=== PATIENT | female | born 1960 | race Caucasian/White ===

== ENCOUNTER 2024-04-04 12:39 | Inpatient (IN) | payer OTHER, MEDICAID ==
[~2024-04-04] VITALS: Ht 165.1 cm; Wt 104.5 kg
[2024-04-04] MEDS ORDERED: AZITHROMYCIN 250 MG TAB PO ONE (12:45)
--- NOTE | 2024-04-04 12:53 | ED.PDOC ---
SOB-HPI HPI Comments 63y F who presents to the ED via EMS for chief complaint of shortness of breath. Per EMS, pt lives with family and states pt has been short of breath for the past 3 days getting progressively worse. Pt family states pt deteriorated today and states they called EMS to the scene. Per EMS arrival, pt was noted to be in respiratory distress and after checking vitals, pt had 02 sat of 80% on room air. Pt family states pt has history of COPD and states pt took her inhaler and tried 2 breathing treatments and pt was still short of breath prior to ED arrival. EMS gave pt additional breathing treatment and placed pt on 02 mask and brought pt to the ED for further evaluation. Pt in the ED, placed on 02 mask 15 L via NRB. Pt in the ED, noted to be in respiratory distress and short of breath when attempting to answer questions. Chief Complaint: Shortness of Breath Time Seen by MD: 12:49 Reviewed notes: Paving Supervisor Notes, Medications Information Source: Patient, Emergency Med Personnel Mode of Arrival: EMS Brought in by: EMS Past Medical History PAST MEDICAL HISTORY: CAD, COPD, DM, HTN Surgical History (Other): 4x cardiac stents placed [employer]BER History: Unknown Family History Family History: Unknown Social History Smoker: Non-Smoker Alcohol: Denies ETOH Use Drugs: Denies Drug Use Lives In: Home Physical Exam General Appearance: Moderate Distress, Severe Distress, Other HEENT: Normal ENT Inspection, Pharynx Normal, TMs Normal Neck: Full Range of Motion, Non-Tender, Normal, Normal Inspection Respiratory: Respiratory Distress, Wheezing (bilateral wheezing), Other (pt noted to be tachycardic and tachypneic) Cardiovascular: Tachycardia Breast Exam: Deferred Gastrointestinal: No Organomegaly, Non Tender, No Pulsatile Mass, Normal Bowel Sounds, Soft Genitalia: Deferred Pelvic: Deferred Rectal: Deferred Extremities: No calf tenderness, Normal capillary refill, Normal inspection, Normal range of motion, Non-tender, No pedal edema Musculoskeletal : Apperance: Normal Neurologic: Alert, supervisor shed workers II-XII nml as Tested, No Motor Deficits, Normal Affect, Normal Mood, No Sensory Deficits Cerebellar Function: Normal Reflexes: Normal Skin: Dry, Normal Color, Warm Lymphatic: No Adenopathy Was a procedure done? Was a procedure done?: No Differential Dx Differential Diagnosis: CHF, COPD, Myocardial infarction, Pneumonia, Pulmonary Embolism, Respiratory Distress Comments acute respiratory failure, X-Ray, Labs, Meds, VS Vital Signs Date Time Temp Pulse Resp B/P (MAP) Pulse Ox O2 Delivery O2 Flow Rate FiO2 04/04/24 15:42 130/57 04/04/24 15:17 78 04/04/24 13:06 99 171/68 Facial BiPAP Mask 100 04/04/24 12:39 40 80 Non-Rebreather 15 N/A 04/04/24 12:39 98.7 107 40 90/58 (69) 80 Lab Test 04/04/24 14:17 04/04/24 14:15 04/04/24 13:24 Range/Units Influenza Type A Antigen Negative Negative Influenza Type B Antigen Negative Negative SARS-CoV-2 Antigen (Rapid) Negative NEGATIVE Troponin I High Sensitivity 36 *H 26 </=34 ng/L White Blood Count 9.1 4.4-10.8 10^3/uL Red Blood Count 3.98 L 4.0-5.20 10^6/uL Hemoglobin 12.5 12.2-16.2 g/dL Hematocrit 38.9 36.0-46.0 % Mean Corpuscular Volume 97.8 80.0-100.0 fL Mean Corpuscular Hemoglobin 31.5 28.0-32.0 pg Mean Corpuscular Hemoglobin Concent 32.2 32.0-36.0 g/dL Red Cell Distribution Width 15.4 H 11.8-14.3 % Platelet Count 160 140-450 10^3/uL Mean Platelet Volume 9.7 6.9-10.8 fL Neutrophils (%) (Auto) 78.5 37.0-80.0 % Lymphocytes (%) (Auto) 16.2 10.0-50.0 % Monocytes (%) (Auto) 3.6 0.0-12.0 % Eosinophils (%) (Auto) 1.0 0.0-7.0 % Basophils (%) (Auto) 0.7 0.0-2.0 % Neutrophils # (Auto) 7.1 1.6-8.6 10 ^3/uL Lymphocytes # (Auto) 1.5 0.4-5.4 10 ^3/uL Monocytes # (Auto) 0.3 0-1.3 10 ^3/uL Eosinophils # (Auto) 0.1 0-0.8 10 ^3/uL Basophils # (Auto) 0.1 0-0.2 10 ^3/uL Nucleated Red Blood Cells 0.0 % Sodium Level 143 136-145 mmol/L Potassium Level 4.2 3.5-5.1 mmol/L Chloride Level 109 H 98-107 mmol/L Carbon Dioxide Level 26 20-31 mmol/L Anion Gap 8 5-15 Blood Urea Nitrogen 18 9-23 mg/dL Creatinine 0.92 0.550-1.02 mg/dL Glomerular Filtration Rate Calc 69 >90 mL/min BUN/Creatinine Ratio 19.6 10.0-20.0 Serum Glucose 162 H 74-106 mg/dL Lactic Acid Level 1.3 0.4-2.0 mmol/L Calcium Level 9.4 8.7-10.4 mg/dL B-Type Natriuretic Peptide 639.11 0-100 pg/mL Current Medications Medications (Trade) Dose Ordered Sig/Jeanne Route Start Time Stop Time Status Last Admin Albuterol (Ventolin Medneb) 5 mg ONCE ONCE NEB 04/04/24 12:45 04/04/24 12:46 DC 04/04/24 13:05 Ipratropium [place] (Atrovent Medneb) 0.5 mg ONCE ONCE NEB 04/04/24 12:45 04/04/24 12:46 DC 04/04/24 13:06 Azithromycin 250 ml @ 125 mls/hr ONCE ONCE IV 04/04/24 13:30 04/04/24 15:29 DC 04/04/24 13:38 Furosemide (Lasix Injection) 40 mg ONCE ONCE IV 04/04/24 14:15 04/04/24 14:16 DC 04/04/24 15:42 [place] [id number] Ph: [phone] DIAGNOSTIC IMAGING Diagnostic Imaging Report : [id number] Signed PATIENT: KESHIA CASTILLO ACCT: [id number] UNIT: [id number] : 1960 LOC: ER ROOM / BED: / AGE / SEX: 63 / F ADM STATUS: REG ER SERVICE 1254 ORDERING PHYSICIAN: DOMINGO OROZCO MD PROCEDURE(s): CXRP - CHEST PORTABLE REASON: SOB ORDER NUMBER(s): [id number], ACCESSION NUMBER(s): [id number] EXAM: XY CHEST PORTABLE Indication: SOB Technique: Single frontal view of the chest was obtained Comparison: None FINDINGS: Lines and Tubes: None Lungs: Diffuse interstitial opacities. Pleura: Trace left pleural effusion. No pneumothorax. Cardiomediastinal contours: Cardiomegaly. Atherosclerotic vascular calcifications of the thoracic aorta are noted. Bones: No acute osseous abnormality. IMPRESSION: Cardiomegaly with pulmonary edema and trace left pleural effusion. ATED BY: BI KITCHEN MD DICTATED DATE/TIME: 04/04/241315 SIGNED BY: BI KITCHEN MD SIGNED DATE/TIME: 04/04/241315 CC: Time of 1ST Reevaluation: 13:20 Reevaluation 1ST: Unchanged Patient Education/Counseling: Diagnosis, Treatment Family Education/Counseling: No Family Present Departure 1 Departure Time of Disposition: 16:23 (Patient presented with acute shortness of breath concerning for acute on chronic COPD Exacerbation, Pneumonia, ACS, CHF, Pneumothorax. Less likely PE, Dissection. Data: 1. I ordered and reviewed the result of at least 3 labs including a CBC, BMP, and Troponin. 2. I independently interpreted the following tests: Chest X-ray shows .Risk:This patient has a high risk of morbidity due to further diagnostic testing or treatment and may suffer from respiratory or cardiac etiology . Workup reveals a likely COPD Exacerbation and patient should be admitted for further workup. and possible expert consultation.) Impression: Primary Impression: Acute exacerbation of chronic obstructive pulmonary disease (COPD) Additional Impression: Acute hypoxic respiratory failure Disposition: 09 ADMITTED INPATIENT Admit to: [facility] Condition: Guarded Critical Care Note Critical Care Time?: Yes Critical care comment: Acute respiratory failure Authorized and Performed by: Domingo Orozco MD Total critical care time: Approximately 42 minutes Due to a high probability of clinically significant, life threatening deterioration, the patient required my highest level of preparedness to intervene emergently and I personally spent this critical care time directly and personally managing the patient. This critical care time included obtaining a history; examining the patient; pulse oximetry; ordering and review of studies; arranging urgent treatment with development of a management plan; evaluation of patient's response to treatment; frequent reassessment; and, discussions with other providers. This critical care time was performed to assess and manage the high probability of imminent, life-threatening deterioration that could result in multi-organ failure. It was exclusive of separately billable procedures and treating other patients and teaching time. Please see my other sections and the rest of the note for further information on patient assessment and treatment. Stability Stability form required: No Heart Score Heart Score: Heart Score Response (Comments) Value History Moderate Suspicious 1 EKG Repolarization Disturb 1 Age >65 2 Risk Factors >3 or Hx ASHD 2 Troponin 1-2 x's Normal limit 1 Total 7 I personally scribed for DOMINGO OROZCO MD (RADHA) on 04/04/24 at 12:53. Electronically submitted by Lalitha Sparrow ([email or web address]). I personally scribed for DOMINGO OROZCO MD (RADHA) on 04/04/24 at 12:55. Electronically submitted by Lalitha Sparrow ([employer]). I personally scribed for ODMINGO OROZCO MD (RADHA) on 04/04/24 at 14:18. Electronically submitted by Lalitha Sparrow ([employer]). DOMINGO OROZCO MD Apr 04, 2024 12:53
[2024-04-04] MEDS: ALBUTEROL SULF 2.5 MG/0.5ML(0.5%) NEB SOLN NEB ONE (13:05)
[2024-04-04] MEDS: IPRATROPIUM BROM 0.5 MG/2.5ML INH SOL NEB ONE (13:06)
--- NOTE | 2024-04-04 13:17 | DVH ---
EXAM: XY CHEST PORTABLE Indication: SOB Technique: Single frontal view of the chest was obtained Comparison: None FINDINGS: Lines and Tubes: None Lungs: Diffuse interstitial opacities. Pleura: Trace left pleural effusion. No pneumothorax. Cardiomediastinal contours: Cardiomegaly. Atherosclerotic vascular calcifications of the thoracic aor ta are noted. Bones: No acute osseous abnormality. IMPRESSION: Cardiomegaly with pulmonary edema and trace left pleural effusion.
[2024-04-04] MEDS: KETAMINE 50mg/ML 10ml Vial 10 ML ONE (13:18)
[2024-04-04] MEDS: AZITHROMYCIN 500MG/ 250ML 250 ML IV ONE (13:38)
[2024-04-04 13:46] LABS: Basophils # (auto) 0.1 10 ^3/uL (0-0.2); Basophils % (auto) 0.7 % (0.0-2.0); Eosinophils # (auto) 0.1 10 ^3/uL (0-0.8); Hematocrit 38.9 % (36.0-46.0); Hemoglobin 12.5 g/dL (12.2-16.2); Lymphocytes # (auto) 1.5 10 ^3/uL (0.4-5.4); Lymphocytes % (auto) 16.2 % (10.0-50.0); Mean Corpuscular Hemoglobin 31.5 pg (28.0-32.0); Mean Corpuscular Hgb Conc. 32.2 g/dL (32.0-36.0); Mean Corpuscular Volume 97.8 fL (80.0-100.0); Monocytes # (auto) 0.3 10 ^3/uL (0-1.3); Monocytes % (auto) 3.6 % (0.0-12.0); Neutrophils # (auto) 7.1 10 ^3/uL (1.6-8.6); Neutrophils % (auto) 78.5 % (37.0-80.0); Platelet Count (auto) 160 10^3/uL (140-450); Red Blood Cells 3.98 10^6/uL (4.0-5.20); Red Cell Distribution Width 15.4 % (11.8-14.3); White Blood Cell 9.1 10^3/uL (4.4-10.8)
[2024-04-04 13:59] LABS: Chloride 109 mmol/L (98-107); Potassium 4.2 mmol/L (3.5-5.1); Sodium 143 mmol/L (136-145)
[2024-04-04 14:00] LABS: Anion Gap 8 (5-15); Calcium 9.4 mg/dL (8.7-10.4); Carbon Dioxide 26 mmol/L (20-31)
[2024-04-04 14:05] LABS: BUN/Creatinine Ratio 19.6 (10.0-20.0); Blood Urea Nitrogen 18 mg/dL (9-23); Glucose 162 mg/dL (74-106)
[2024-04-04] MEDS: FUROSEMIDE 40 MG/4 ML VIAL IV ONE (15:42)
[2024-04-04 16:13] LABS: COVID19 ANTIGEN SOFIA FIA NEGATIVE (NEGATIVE); Rapid Influenza A Negative (Negative); Rapid Influenza B Negative (Negative)
[2024-04-04] MEDS ORDERED: DEXTROSE (50%) 50ML SYRG IV PRN (17:15)
[2024-04-04] MEDS ORDERED: ONDANSETRON HCL 4 MG/2 ML VIAL IV PRN (17:15)
[2024-04-04] MEDS ORDERED: ZOLPIDEM TARTRATE 5 MG TAB PO PRN (17:15)
[2024-04-04] MEDS: MAALOX PLUS or MAALOX 30 ML PO ONE (17:30)
[2024-04-04] MEDS: ASPirin 325 MG TAB PO ONE (17:30)
[2024-04-04] MEDS: CLOPIDOGREL BISULFATE 75 MG TAB PO ONE (17:30)
[2024-04-04] MEDS: methylPREDNISolone SOD SUCC 40 MG/ML VL IV SCH (17:46)
[2024-04-04] MEDS: cefTRIAXone 1GM/50ML D5W 50 ML IV SCH (17:46)
[2024-04-04] MEDS: ACETAMINOPHEN IV 1000 MG/100ML (10MG/ML) IV STA (17:46)
--- NOTE | 2024-04-04 17:46 | DVHHP2 ---
History of Present Illness Reason for Visit: shortness of breath History of Present Illness 63 yo cad,htn,copd, dm comes with acute respiratory failure in the ed with the need to be placed on bipap patient with complete distress and recommended to be admitted to the hospital for further evaluation and continued care Cardiovascular: CAD, HTN Pulmonary: COPD Endocrine: Diabetes Review of Systems Constitutional: Yes: Weakness; No: Fever, Chills, Sweats, Malaise, Other Eyes: No: Pain, Vision change, Conjunctivae inflammation, Eyelid inflammation, Other, Redness ENT: No: Ear pain, Ear discharge, Nose pain, Nose discharge, Nose congestion, Mouth pain, Mouth swelling, Throat pain, Throat swelling, Other Respiratory: Cough, Dry, Shortness of breath; No: SOB with excertion, Wheezing, Hemoptysis, Pleuritic Pain, Sputum, Wheezing, Other Cardiovascular: Chest Pain, Palpitations; No: Orthopnea, Paroxysmal Noc. Dyspnea, Edema, Lt Headedness, Other Gastrointestinal: No: Nausea, Vomiting, Abdominal Pain, Diarrhea, Constipation, Melena, Hematochezia, Other Genitourinary: No Dysuria, No Frequency, No Incontinence, No Hematuria, No Retention, No Other Musculoskeletal: No: other, neck pain, shoulder pain, arm pain, back pain, hand pain, leg pain, foot pain Skin: No: Rash, Lesions, Jaundice, Bruising, Other Neurological: No: Weakness, Numbness, Incoordination, Change in speech, Confusion, Seizures, Other Allergies: Coded Allergies: NO KNOWN ALLERGIES (Unverified , 04/04/24) Exam Vital Signs Vital Signs Date Time Temp Pulse Resp B/P (MAP) Pulse Ox O2 Delivery O2 Flow Rate FiO2 04/04/24 15:42 130/57 04/04/24 15:17 78 04/04/24 13:06 Facial BiPAP Mask 100 04/04/24 12:39 40 80 15 04/04/24 12:39 98.7 General Appearance: Alert, Oriented X3, moderate distress, severe distress HEENT: Atraumatic, PERRLA Respiratory: Normal air movement Cardiovascular: Regular rate, Normal S1, Normal S2 Abdominal: Normal bowel sounds Extremities: No clubbing, No cyanosis Skin: No rashes, No breakdown Neuro: Normal speech Labs/Xrays Labs Test 04/04/24 15:24 04/04/24 14:17 04/04/24 13:24 Range/Units Troponin I High Sensitivity 86 *H </=34 ng/L Influenza Type A Antigen Negative Negative Influenza Type B Antigen Negative Negative SARS-CoV-2 Antigen (Rapid) Negative NEGATIVE White Blood Count 9.1 4.4-10.8 10^3/uL Red Blood Count 3.98 L 4.0-5.20 10^6/uL Hemoglobin 12.5 12.2-16.2 g/dL Hematocrit 38.9 36.0-46.0 % Mean Corpuscular Volume 97.8 80.0-100.0 fL Mean Corpuscular Hemoglobin 31.5 28.0-32.0 pg Mean Corpuscular Hemoglobin Concent 32.2 32.0-36.0 g/dL Red Cell Distribution Width 15.4 H 11.8-14.3 % Platelet Count 160 140-450 10^3/uL Mean Platelet Volume 9.7 6.9-10.8 fL Neutrophils (%) (Auto) 78.5 37.0-80.0 % Lymphocytes (%) (Auto) 16.2 10.0-50.0 % Monocytes (%) (Auto) 3.6 0.0-12.0 % Eosinophils (%) (Auto) 1.0 0.0-7.0 % Basophils (%) (Auto) 0.7 0.0-2.0 % Neutrophils # (Auto) 7.1 1.6-8.6 10 ^3/uL Lymphocytes # (Auto) 1.5 0.4-5.4 10 ^3/uL Monocytes # (Auto) 0.3 0-1.3 10 ^3/uL Eosinophils # (Auto) 0.1 0-0.8 10 ^3/uL Basophils # (Auto) 0.1 0-0.2 10 ^3/uL Nucleated Red Blood Cells 0.0 % Sodium Level 143 136-145 mmol/L Potassium Level 4.2 3.5-5.1 mmol/L Chloride Level 109 H 98-107 mmol/L Carbon Dioxide Level 26 20-31 mmol/L Anion Gap 8 5-15 Blood Urea Nitrogen 18 9-23 mg/dL Creatinine 0.92 0.550-1.02 mg/dL Glomerular Filtration Rate Calc 69 >90 mL/min BUN/Creatinine Ratio 19.6 10.0-20.0 Serum Glucose 162 H 74-106 mg/dL Lactic Acid Level 1.3 0.4-2.0 mmol/L Calcium Level 9.4 8.7-10.4 mg/dL B-Type Natriuretic Peptide 639.11 0-100 pg/mL Assessment/Plan Assessment/Plan Admit Dylan Acute respiratory failure suspected due to Acute on Chronic COPD exacerbation Possible CHF unconfirmed CXR pulmonary congestion signs fluid overload vs PNA IV abx IV steroids history CAD trops elevated chest pain protocols cardio evaluation for possible cath Morbidly Obese >46 prn breathing treatments DM uncontrolled Hyperglycemia elevated glucose sliding scale inpatient HTN c/w home meds monitor BP cct 38 mins Plan discussed with: Patient My Orders Orders - CLINTON ELDRIDGE MD Procedure Category Date Status Time Albuterol Medneb PHA 04/04/24 Logged (Ventolin Medneb) 17:15 Ipratropium Medneb PHA 04/04/24 Logged (Atrovent Medneb) 17:15 Med Neb Initial RT 04/04/24 Logged Treatment 17:10 Methylprednisolone PHA 04/04/24 Logged Sod Succ (Solu Medrol 17:15 Furosemide Injection PHA 04/04/24 Logged (Lasix Injection) 22:00 Ceftriaxone 1gm/50ml PHA 04/04/24 Logged D5w (Rocephin) 17:15 Azithromycin Tablet PHA 04/05/24 Logged (Zithromax Tablet) 10:00 Glucose Blood PHA 04/04/24 Logged (Accu-Chek Comfort 20:00 Insulin R (Human) PHA 04/04/24 Logged (Insulin R) 20:00 Dextrose 50% Syringe PHA 04/04/24 Logged 17:15 Admit ADMIT 04/04/24 Transmitted 17:10 Code Status CODE 04/04/24 Transmitted 17:10 Merchandise Distributor LISET 04/04/24 In Process 17:10 Aspirin Tablet PHA 04/05/24 Logged 10:00 Aspirin Tablet PHA 04/04/24 Logged 17:15 Clopidogrel Bisulfate PHA 04/05/24 Logged (Plavix) 10:00 Atorvastatin (Lipitor) PHA 04/04/24 Logged 22:00 Metoprolol Tartrate PHA 04/04/24 Logged Tablet (Lopressor Ta 22:00 Acetaminophen Tablet PHA 04/04/24 Logged (Tylenol Tablet) 17:15 Zolpidem Tartrate PHA 04/04/24 Logged (Ambien) 17:15 Lorazepam Tablet PHA 04/04/24 Logged (Ativan Tablet) 17:15 Docusate Sodium PHA 04/05/24 Logged Capsule (Colace 10:00 Complete Blood Count LAB 04/05/24 Verified 04:00 Basic Metabolic Panel LAB 04/05/24 Verified 04:00 Echo 2d Mode Cardiac US 04/04/24 Logged DOP 17:10 Enoxaparin Sodium PHA 04/04/24 Logged (Lovenox) 22:00 Ondansetron Hcl PHA 04/04/24 Logged (Zofran) 17:15 Electrocardigram EKG 04/04/24 Logged 17:10 Alum & Mag PHA 04/04/24 Logged Hydrox-Simethicone 17:15 Troponin-I Hs LAB 04/04/24 Logged 17:10 Clopidogrel Bisulfate PHA 04/04/24 Logged (Plavix) 17:15 Lisinopril Tablet PHA 04/05/24 Logged (Zestril Tablet) 10:00 Stat Ekg For Chest [facility] 04/04/24 In Process Pain 17:10 Notify Md Of Changes [facility] 04/04/24 In Process From Base 17:10 Splicing Supervisor For [facility] 04/04/24 In Process 24 Hours 17:10 Emergency Dysrhythmia [facility] 04/04/24 In Process Protocol 17:10 Rhythm Strips Once [facility] 04/04/24 In Process Every Shift 17:10 Oxygen By Nasal RT 04/04/24 Transmitted Cannula 17:10 Electrocardigram EKG 04/04/24 Logged 20:10 Troponin-I Hs LAB 04/04/24 Logged 20:10 * Cardiology Consult CONS 04/04/24 Transmitted 17:10 Problem List: (1) Acute respiratory failure with hypoxemia (2) Diabetes mellitus type 2 with complications, uncontrolled (3) Acute exacerbation of chronic obstructive pulmonary disease (COPD) (4) Acute hypoxic respiratory failure Date of Service: Apr 04, 2024 Billing Provider: CLINTON ELDRIDGE MD Common Visit Codes: [id number] CARE 30-74 MIN CLINTON ELDRIDGE MD Apr 04, 2024 17:46
[2024-04-04 18:22] VITALS: BP 158/67; PULSE 78; RESP 23; RESP 25; O2SAT 100
[2024-04-04] MEDS: IPRATROPIUM BROM 0.5 MG/2.5ML INH SOL NEB PRN (18:22)
[2024-04-04] MEDS: ALBUTEROL SULF 2.5 MG/0.5ML(0.5%) NEB SOLN NEB PRN (18:22)
[2024-04-04 19:06] VITALS: BP 158/67; PULSE 78; RESP 23; TEMP 97.9; O2SAT 100
[2024-04-04 20:00] VITALS: BP 139/45; PULSE 75; PULSE 77; RESP 26; O2SAT 98
[2024-04-04 20:28] LABS: Urine Bacteria None Seen /hpf (None Seen)
[2024-04-04 20:49] LABS: Urine Blood Negative /uL (Negative); Urine Clarity Clear (Clear); Urine Color Colorless (Yellow); Urine Hyaline Cast FEW /lpf (0 - 2); Urine Mucus FEW (None Seen); Urine Protein, UAD Negative (Negative); Urine Specific Gravity 1.006 (1.001-1.035); Urine Urobilinogen Normal (Negative); Urine WBC <1 /hpf (0 - 5)
[2024-04-04] MEDS: InsuLIN REG 1unit/0.01ml Soln (100units/ml) SC SCH (21:19)
[2024-04-04] MEDS: ACCU-CHEK COMFORT CURVE STRIP VI SCH (21:21)
[2024-04-04 21:54] VITALS: BP 158/61; PULSE 86; RESP 30; RESP 33; O2SAT 98
--- NOTE | 2024-04-04 23:28 | DVHINCON2 ---
Date of service: Apr 04, 2024 Referring Physician Delio Reason for Consultation Troponin elevation History of Present Illness This is a 63 year old female with a PMH of CAD, COPD, DM, HTN who was brought in by EMS with complaints of shortness of breath x 3 days. Patient's family members at bedside state that the patient deteriorated today and called EMS to the scene. Upon EMS arrival, patient was noted to be in respiratory distress with 02 sat of 80% on room air. Patient's family also states patient took her inhaler and tried 2 breathing treatments and was still short of breath prior to ED arrival. EMS administered an additional breathing treatment and placed patient on an 02 mask. In the ED patient was placed on 15 L via NRB. TROP 36 > 86 > 312 > 327. COVID is negative. Influenza A/B is negative. Chest x-ray shows cardiomegaly with pulmonary edema and trace left pleural effusion. Patient was admitted to the hospital. I am asked to consult on this patient. Allergies: Coded Allergies: NO KNOWN ALLERGIES (Unverified , 04/04/24) Current Medications Current Medications Medications (Trade) Dose Ordered Sig/Jeanne Route PRN Reason Start Time Stop Time Status Last Admin Acetaminophen (Ofirmev) 1,000 mg ONCE STAT IV 04/04/24 17:12 04/04/24 17:13 DC 04/04/24 17:46 Albuterol (Ventolin Medneb) 2.5 mg Q4HWA PRN NEB SHORTNESS OF BREATH 04/04/24 17:15 04/04/24 21:54 Ipratropium [place] (Atrovent Medneb) 0.5 mg Q4HWA PRN NEB SHORTNESS OF BREATH 04/04/24 17:15 04/04/24 21:54 Methylprednisolone Sodium Succinate (Solu Medrol) 40 mg BID IV 04/04/24 17:15 04/04/24 17:46 Furosemide (Lasix Injection) 40 mg BID IV 04/04/24 22:00 Ceftriaxone Sodium 50 ml @ 100 mls/hr DAILY IV 04/04/24 17:15 04/04/24 17:46 Azithromycin (Zithromax Tablet) 500 mg DAILY PO 04/05/24 10:00 Diagnostic Test (Pha) (Accu-Chek Comfort Curve T) 1 strip IQ4HR 04/04/24 20:00 04/04/24 21:21 Insulin Human Regular (InsuLIN R) IQ4HR SC 04/04/24 20:00 Dextrose 50 ml UD PRN IV Blood Sugar LESS THAN 60 04/04/24 17:15 Aspirin 81 mg DAILY PO 04/05/24 10:00 Clopidogrel Bisulfate (Plavix) 75 mg DAILY PO 04/05/24 10:00 Atorvastatin Calcium (Lipitor) 80 mg HS PO 04/04/24 22:00 Metoprolol Tartrate (Lopressor Tablet) 25 mg Q12HR PO 04/04/24 22:00 Acetaminophen (Tylenol Tablet) 650 mg Q6HP PRN PO MILD PAIN (1-3 PAIN SCALE) 04/04/24 17:15 Zolpidem Tartrate (Ambien) 5 mg QHSP PRN PO FOR INSOMNIA 04/04/24 17:15 Lorazepam (Ativan Tablet) 0.5 mg Q6HP PRN PO ANXIETY 04/04/24 17:15 Docusate Sodium (Colace Capsule) 100 mg DAILY PO 04/05/24 10:00 Enoxaparin Sodium (Lovenox) 100 mg Q12HR SC 04/04/24 22:00 Ondansetron HCl (Zofran) 4 mg Q4HP PRN IV NAUSEA / VOMITING 04/04/24 17:15 Lisinopril (Zestril Tablet) 10 mg DAILY PO 04/05/24 10:00 Review of Systems Constitutional: Yes: Weakness; No: Fever, Chills, Sweats, Malaise, Other Eyes: No: Pain, Vision change, Conjunctivae inflammation, Eyelid inflammation, Other, Redness ENT: No: Ear pain, Ear discharge, Nose pain, Nose discharge, Nose congestion, Mouth pain, Mouth swelling, Throat pain, Throat swelling, Other Respiratory: Cough, Dry, Shortness of breath; No: SOB with excertion, Wheezing, Hemoptysis, Pleuritic Pain, Sputum, Wheezing, Other Cardiovascular: Chest Pain, Palpitations; No: Orthopnea, Paroxysmal Noc. Dyspnea, Edema, Lt Headedness, Other Gastrointestinal: No: Nausea, Vomiting, Abdominal Pain, Diarrhea, Constipation, Melena, Hematochezia, Other Genitourinary: No Dysuria, No Frequency, No Incontinence, No Hematuria, No Retention, No Other Musculoskeletal: No: other, neck pain, shoulder pain, arm pain, back pain, hand pain, leg pain, foot pain Skin: No: Rash, Lesions, Jaundice, Bruising, Other Neurological: No: Weakness, Numbness, Incoordination, Change in speech, Confusion, Seizures, Other Vital Signs Vital Signs Date Time Temp Pulse Resp B/P (MAP) Pulse Ox O2 Delivery O2 Flow Rate FiO2 04/04/24 21:54 86 30 98 04/04/24 21:54 158/61 Nasal BiPAP Mask 75 04/04/24 19:06 97.9 97.9 04/04/24 12:39 15 Physical Exam GENERAL: Awake, alert, oriented. LUNGS: Decreased breath sounds. CARDIOVASCULAR: Heart sounds are good. ABDOMEN: Soft. Labs/Diagnostic Data Labs Test 04/04/24 21:00 04/04/24 20:26 04/04/24 20:04 04/04/24 14:17 Range/Units POC Glucose 157 H 70-106 mg/dl Urine Color Colorless Yellow Urine Clarity Clear Clear Urine pH 5.0 5.0-9.0 Urine Specific [place] 1.006 1.001-1.035 Urine Protein Negative Negative Urine Ketones Negative Negative Urine Blood Negative Negative /uL Urine Nitrite Negative Negative Urine Bilirubin Negative Negative Urine Urobilinogen Normal Negative mg/dL Urine Leukocyte Esterase Negative Negative /uL Urine RBC 1 0 - 4 /hpf Urine WBC <1 0 - 5 /hpf Urine Squamous Epithelial Cells None seen <5 /hpf Urine Bacteria None seen None Seen /hpf Urine Hyaline Casts Few 0 - 2 /lpf Urine Mucus Few None Seen Urine Glucose Normal Normal mg/dL Troponin I High Sensitivity 327 *H </=34 ng/L Influenza Type A Antigen Negative Negative Influenza Type B Antigen Negative Negative SARS-CoV-2 Antigen (Rapid) Negative NEGATIVE Test 04/04/24 13:24 Range/Units White Blood Count 9.1 4.4-10.8 10^3/uL Red Blood Count 3.98 L 4.0-5.20 10^6/uL Hemoglobin 12.5 12.2-16.2 g/dL Hematocrit 38.9 36.0-46.0 % Mean Corpuscular Volume 97.8 80.0-100.0 fL Mean Corpuscular Hemoglobin 31.5 28.0-32.0 pg Mean Corpuscular Hemoglobin Concent 32.2 32.0-36.0 g/dL Red Cell Distribution Width 15.4 H 11.8-14.3 % Platelet Count 160 140-450 10^3/uL Mean Platelet Volume 9.7 6.9-10.8 fL Neutrophils (%) (Auto) 78.5 37.0-80.0 % Lymphocytes (%) (Auto) 16.2 10.0-50.0 % Monocytes (%) (Auto) 3.6 0.0-12.0 % Eosinophils (%) (Auto) 1.0 0.0-7.0 % Basophils (%) (Auto) 0.7 0.0-2.0 % Neutrophils # (Auto) 7.1 1.6-8.6 10 ^3/uL Lymphocytes # (Auto) 1.5 0.4-5.4 10 ^3/uL Monocytes # (Auto) 0.3 0-1.3 10 ^3/uL Eosinophils # (Auto) 0.1 0-0.8 10 ^3/uL Basophils # (Auto) 0.1 0-0.2 10 ^3/uL Nucleated Red Blood Cells 0.0 % Sodium Level 143 136-145 mmol/L Potassium Level 4.2 3.5-5.1 mmol/L Chloride Level 109 H 98-107 mmol/L Carbon Dioxide Level 26 20-31 mmol/L Anion Gap 8 5-15 Blood Urea Nitrogen 18 9-23 mg/dL Creatinine 0.92 0.550-1.02 mg/dL Glomerular Filtration Rate Calc 69 >90 mL/min BUN/Creatinine Ratio 19.6 10.0-20.0 Serum Glucose 162 H 74-106 mg/dL Lactic Acid Level 1.3 0.4-2.0 mmol/L Calcium Level 9.4 8.7-10.4 mg/dL B-Type Natriuretic Peptide 639.11 0-100 pg/mL Assessment Acute respiratory failure with hypoxemia. Elevated troponin. Diabetes mellitus type 2 uncontrolled. Acute exacerbation of chronic obstructive pulmonary disease (COPD). Plan/Recommendation I agree with your ongoing assessment and care of plan. Echcardiogram. Aspirin, Lipitor, Metoprolol, Plavix. IV antibiotics as ordered. DVT prophylactics. Diuretics with Lasix. Lisinopril. Additional plan as per the hospital course. Critical care time of 90 minutes provided to include time spent evaluation of patient at bedside, when appropriate patient/family education for diagnosis, treatment plan, review of pertinent medical information and discussion of care with specialty providers and PCP. Plan discussed with: Patient HUMBLE MCCAIN MD Apr 04, 2024 22:35
[2024-04-04 23:57] VITALS: BP 139/44; PULSE 85; O2SAT 97
[2024-04-05] VITALS (12 sets, daily range): BP systolic 91–124; BP diastolic 44–75; PULSE 74–89; RESP 17–22; O2SAT 92–96
[2024-04-05] MEDS: METOPROLOL TARTRATE 25 MG TAB PO SCH (00:10)
[2024-04-05] MEDS: ATORVASTATIN 20 MG TAB PO SCH (00:10)
[2024-04-05] MEDS: FUROSEMIDE 40 MG/4 ML VIAL IV SCH (00:11)
[2024-04-05] MEDS: ENOXAPARIN SOD 100 MG/1 ML SYRINGE SC SCH (00:11)
[2024-04-05 04:47] LABS: Basophils # (auto) 0 10 ^3/uL (0-0.2); Basophils % (auto) 0.2 % (0.0-2.0); Eosinophils # (auto) 0 10 ^3/uL (0-0.8); Hematocrit 36.5 % (36.0-46.0); Hemoglobin 12.1 g/dL (12.2-16.2); Lymphocytes # (auto) 0.5 10 ^3/uL (0.4-5.4); Lymphocytes % (auto) 8.2 % (10.0-50.0); Mean Corpuscular Hemoglobin 31.7 pg (28.0-32.0); Mean Corpuscular Hgb Conc. 33.2 g/dL (32.0-36.0); Mean Corpuscular Volume 95.6 fL (80.0-100.0); Monocytes # (auto) 0.1 10 ^3/uL (0-1.3); Monocytes % (auto) 2.4 % (0.0-12.0); Neutrophils # (auto) 5.3 10 ^3/uL (1.6-8.6); Neutrophils % (auto) 89.2 % (37.0-80.0); Nucleated Red Blood Cells % 0.1 %; Platelet Count (auto) 150 10^3/uL (140-450); Red Blood Cells 3.82 10^6/uL (4.0-5.20); Red Cell Distribution Width 14.6 % (11.8-14.3)
[2024-04-05 06:04] LABS: Chloride 107 mmol/L (98-107); Sodium 141 mmol/L (136-145)
[2024-04-05 06:05] LABS: Anion Gap 9 (5-15); Calcium 9.6 mg/dL (8.7-10.4); Carbon Dioxide 25 mmol/L (20-31)
[2024-04-05 06:10] LABS: BUN/Creatinine Ratio 22.6 (10.0-20.0); Blood Urea Nitrogen 21 mg/dL (9-23); Glucose 161 mg/dL (74-106)
[2024-04-05 07:06] LABS: Base Excess -1.1 mmol/L (-2.0-3.0)
[2024-04-05] MEDS: DOCUSATE SOD 100 MG CAP PO SCH (10:20)
[2024-04-05] MEDS: AZITHROMYCIN 250 MG TAB PO SCH (10:21)
[2024-04-05] MEDS: CLOPIDOGREL BISULFATE 75 MG TAB PO SCH (10:21)
[2024-04-05] MEDS: ASPirin 81 mg TAB PO SCH (10:21)
[2024-04-05] MEDS: LISINOPRIL 5 MG TAB PO SCH (10:23)
[2024-04-05] MEDS: ACETAMINOPHEN 325 MG TAB PO PRN (11:21)
--- NOTE | 2024-04-05 11:55 | ECG ---
[facility] Test Date: 2024-04-04 Test Time: 15:17:48 Pat Name: KESHIA CASTILLO Department: ER Room: [address] [place] [address] A Gender: F Class 1 Owner Operator: QUINN : 1960 Requested By: DOMINGO OROZCO Order Number: [id number] Reading MD: Hunter Davidson Measurements Intervals [place] Rate: 78 P: 35 TN: 243 QRS: 1 QRSD: 111 T: 72 QT: 395 QTc: 450 Interpretive Statements Sinus rhythm Prolonged TN interval Probable left atrial enlargement LVH with IVCD and secondary repol abnrm Baseline wander in lead(s) I,III,aVR,aVL,V1 Electronically Signed On 04-05-2024 17:45:31 PST by Hunter Davidson Please click the below link to view image of tracing.
--- NOTE | 2024-04-05 12:31 | DVHPN2 ---
Reviewed: Care Plan, H&P, Labs, Medications, Previous Orders, Radiology Changes from previous H/P or p: No Changes Eyes: No Pain, No Vision change, No Conjunctivae inflammation, No Eyelid inflammation, No Other, No Redness ENT: No Ear pain, No Ear discharge, No Nose pain, No Nose discharge, No Nose congestion, No Mouth pain, No Mouth swelling, No Throat pain, No Throat swelling, No Other Cardiovascular: Chest Pain, Palpitations; No Orthopnea, No Paroxysmal Noc. Dyspnea, No Edema, No Lt Headedness, No Other Respiratory: Cough, Dry, Shortness of breath; No SOB with excertion, No Wheezing, No Hemoptysis, No Pleuritic Pain, No Sputum, No Other Gastrointestinal: No Nausea, No Vomiting, No Abdominal Pain, No Diarrhea, No Constipation, No Melena, No Hematochezia, No Other Genitourinary: No Dysuria, No Frequency, No Incontinence, No Hematuria, No Retention, No Other Musculoskeletal: No other, No neck pain, No shoulder pain, No arm pain, No back pain, No hand pain, No leg pain, No foot pain Skin: No Rash, No Lesions, No Jaundice, No Bruising, No Other Objective Vitals Vital Signs Date Time Temp Pulse Resp B/P (MAP) Pulse Ox O2 Delivery O2 Flow Rate FiO2 04/05/24 12:00 79 04/05/24 11:30 161/59 04/05/24 09:49 22 96 04/05/24 09:43 Oxymizer 4.0 04/05/24 09:43 100 100 04/05/24 07:30 98.8 98.8 Intake/Output Intake and Output 04/05/24 07:00 Intake Total 300 ml Output Total 2350 ml Balance -2050 ml Intake IV Total 300 ml Output Urine Total 2350 ml Medications Current Medications Medications Dose Ordered Sig/Jeanne Route Start Time Stop Time Status Last Admin Dose Admin Albuterol 2.5 mg Q4HWA PRN NEB 04/04/24 17:15 04/05/24 09:43 2.5 MG Ipratropium [place] 0.5 mg Q4HWA PRN NEB 04/04/24 17:15 04/05/24 09:43 0.5 MG Methylprednisolone Sodium Succinate 40 mg BID IV 04/04/24 17:15 04/05/24 10:20 40 MG Furosemide 40 mg BID IV 04/04/24 22:00 04/05/24 10:22 40 MG Ceftriaxone Sodium 50 ml @ 100 mls/hr DAILY IV 04/04/24 17:15 04/05/24 10:21 100 MLS/HR Azithromycin 500 mg DAILY PO 04/05/24 10:00 04/05/24 10:21 500 MG Diagnostic Test (Pha) 1 strip IQ4HR 04/04/24 20:00 04/05/24 12:05 1 STRIP Insulin Human Regular IQ4HR SC 04/04/24 20:00 04/05/24 12:07 4 UNITS Dextrose 50 ml UD PRN IV 04/04/24 17:15 Aspirin 81 mg DAILY PO 04/05/24 10:00 04/05/24 10:21 81 MG Clopidogrel Bisulfate 75 mg DAILY PO 04/05/24 10:00 04/05/24 10:21 75 MG Atorvastatin Calcium 80 mg HS PO 04/04/24 22:00 04/05/24 00:10 80 MG Metoprolol Tartrate 25 mg Q12HR PO 04/04/24 22:00 04/05/24 10:22 25 MG Acetaminophen 650 mg Q6HP PRN PO 04/04/24 17:15 04/05/24 11:21 650 MG Zolpidem Tartrate 5 mg QHSP PRN PO 04/04/24 17:15 Lorazepam 0.5 mg Q6HP PRN PO 04/04/24 17:15 Docusate Sodium 100 mg DAILY PO 04/05/24 10:00 04/05/24 10:20 100 MG Enoxaparin Sodium 100 mg Q12HR SC 04/04/24 22:00 04/05/24 10:22 100 MG Ondansetron HCl 4 mg Q4HP PRN IV 04/04/24 17:15 Lisinopril 10 mg DAILY PO 04/05/24 10:00 04/05/24 10:23 10 MG Laboratory Results Laboratory Tests 04/05/24 04:30 Chemistry Test 04/04/24 13:24 04/05/24 04:30 Calcium Level 9.4 mg/dL (8.7-10.4) 9.6 mg/dL (8.7-10.4) Cardiac Markers Test 04/04/24 13:24 B-Type Natriuretic Peptide 639.11 pg/mL (0-100) Urinalysis Test 04/04/24 20:26 Urine Color Colorless (Yellow) Urine Clarity Clear (Clear) Urine pH 5.0 (5.0-9.0) Urine Specific [place] 1.006 (1.001-1.035) Urine Protein Negative (Negative) Urine Ketones Negative (Negative) Urine Blood Negative /uL (Negative) Urine Nitrite Negative (Negative) Urine Bilirubin Negative (Negative) Urine Urobilinogen Normal mg/dL (Negative) Urine Leukocyte Esterase Negative /uL (Negative) Urine RBC 1 /hpf (0 - 4) Urine WBC <1 /hpf (0 - 5) Urine Squamous Epithelial Cells None seen /hpf (<5) Urine Bacteria None seen /hpf (None Seen) Urine Hyaline Casts Few /lpf (0 - 2) Urine Mucus Few (None Seen) Urine Glucose Normal mg/dL (Normal) Blood Gas Results Test 04/05/24 07:00 Arterial Blood pH 7.416 (7.350-7.450) FiO2 % 70.0 Labs and/or images reviewed: Labs reviewed by me, Image(s) reviewed by me Assessment/Plan Assessment/Plan Acute respiratory failure with hypoxemia. Consult for Dr. Aguero Elevated troponin. Cardiology consult by Dr. Loyd Moran appreciated, placed on aspirin Lipitor metoprolol Plavix lisinopril and Lasix Diabetes mellitus type 2 uncontrolled. Insulin sliding scale Acute exacerbation of chronic obstructive pulmonary disease (COPD): Albuterol Atrovent Possible community-acquired pneumonia: Rocephin azithromycin Moderate malnutrition History of coronary artery disease with four stents History of [place] Hypertension Hypercholesterolemia We will check D-dimer Time spent 75 minutes Condition is guarded Advanced care planning time 20 minutes Plan discussed with: Patient Date of Service: Apr 05, 2024 Billing Provider: HARMONY MEZA MD Common Visit Codes: [id number] CARE 30-74 MIN HARMONY MEZA MD Apr 05, 2024 12:31
[2024-04-05 13:06] LABS: Triglycerides 65 mg/dL (< 150)
[2024-04-05 13:07] LABS: LDL Cholesterol 59 mg/dL (< 100)
[2024-04-05 13:08] LABS: Cholesterol 91 mg/dL (< 200); HDL Cholesterol 23 mg/dL (40-59)
[2024-04-05] MEDS ORDERED: FLUT1INH6 IN (15:15)
[2024-04-05] MEDS ORDERED: MONT-8 PO (15:15)
[2024-04-05] MEDS ORDERED: MET25T PO (15:15)
[2024-04-05] MEDS ORDERED: CLOP75TA70 PO (15:15)
[2024-04-05] MEDS ORDERED: GABA800T97 PO (15:15)
[2024-04-05] MEDS ORDERED: GLIP5TAB21 PO (15:15)
[2024-04-05] MEDS ORDERED: PANT40T PO (15:15)
--- NOTE | 2024-04-05 21:09 | DVHINCON2 ---
Date of service: Apr 05, 2024 Referring Physician Chad Kebede MD Reason for Consultation Acute on chronic hypoxic respiratory failure, pulmonary edema, left pleural effusion. History of Present Illness A 63-year-old woman with a PMHx of COPD, coronary artery disease, diabetes mellitus, and hypertension who was brought in by EMS on 04/04/24 with complaints of shortness of breath x 3 days. Per family, the patient deteriorated on day of presentation and EMS were called. Upon EMS arrival, patient was noted to be in respiratory distress with 02 sat of 80% on room air. Patient had taken her inhaler and tried 2 breathing treatments but was still short of breath prior to ED arrival. EMS administered an additional breathing treatment and placed patient on an 02 mask. In the ED patient was placed on 15 L via NRB. TROP 36 > 86 > 312 > 327. COVID negative, Influenza A/B negative. Chest x-ray showed cardiomegaly with pulmonary edema and trace left pleural effusion. Patient was admitted for further care and pulmonary consultation is requested for evaluation and management d/t above findings. Review of Systems: 14-point review of systems negative unless otherwise noted above. Past Medical History: CAD, COPD, diabetes mellitus, and hypertension Past Surgical History: None. Medications: Reviewed. Allergies: No known drug allergies. Family History: No family history of premature CAD. No family history of lung disorders. Social History: Nonsmoker. No alcohol or illicit drug use. Allergies: Coded Allergies: NO KNOWN ALLERGIES (Unverified , 04/04/24) Home Meds Reported Medications Benazepril Hcl (LOTENSIN TABLET) 10 Mg Tb, 10 MG GT, TAB 04/06/24 Furosemide (Furosemide) 40 Mg Tab, 1 TAB PO DAILY, #30 TAB 5 Refills 04/06/24 Metformin Hydrochloride (Metformin Hcl) 500 Mg Tab, 1 TAB PO BID, #60 TAB 3 Refills 04/06/24 Fluticasone Furoate-Vilanterol (Breo Ellipta 200-25 Mcg/INH) 1 Inh Inh, 1 INH IN DAILY, INHALER 04/05/24 Metoprolol Tartrate (Lopressor) 25 Mg Tb, 25 MG PO DAILY, TAB 04/05/24 Gabapentin (Gabapentin) 800 Mg Tab, 800 MG PO BID, TAB 04/05/24 Montelukast Sodium (MONTELUKAST SODIUM) 10 Mg Tab, 10 MG PO DAILY, TAB 04/05/24 Clopidogrel Bisulfate (CLOPIDOGREL) 75 Mg Tab, 75 MG PO DAILY, MG 04/05/24 Pantoprazole Sodium Sesquihydr (Pantoprazole Sodium) 40 Mg Tab, 40 MG PO DAILY, TAB 04/05/24 Glipizide (Glipizide) 5 Mg Tab, 5 MG PO BID, MG 04/05/24 Current Medications Current Medications Medications (Trade) Dose Ordered Sig/Jeanne Route PRN Reason Start Time Stop Time Status Last Admin Furosemide (Lasix Injection) 40 mg BID IV 04/04/24 22:00 04/05/24 10:22 Azithromycin (Zithromax Tablet) 500 mg DAILY PO 04/05/24 10:00 04/05/24 10:21 Aspirin 81 mg DAILY PO 04/05/24 10:00 04/05/24 10:21 Clopidogrel Bisulfate (Plavix) 75 mg DAILY PO 04/05/24 10:00 04/05/24 10:21 Atorvastatin Calcium (Lipitor) 80 mg HS PO 04/04/24 22:00 04/05/24 00:10 Metoprolol Tartrate (Lopressor Tablet) 25 mg Q12HR PO 04/04/24 22:00 04/05/24 10:22 Docusate Sodium (Colace Capsule) 100 mg DAILY PO 04/05/24 10:00 04/05/24 10:20 Enoxaparin Sodium (Lovenox) 100 mg Q12HR SC 04/04/24 22:00 04/05/24 10:22 Lisinopril (Zestril Tablet) 10 mg DAILY PO 04/05/24 10:00 04/05/24 10:23 Vital Signs Vital Signs Date Time Temp Pulse Resp B/P (MAP) Pulse Ox O2 Delivery O2 Flow Rate FiO2 04/05/24 20:56 92 Oxymizer 3.0 04/05/24 20:56 100 100 04/05/24 20:56 89 18 04/05/24 19:22 98.3 167/54 (91) 98.3 Physical Exam Gen.: Patient lying in bed in no apparent distress. On supplemental oxygen. Head: Normocephalic, atraumatic. Eyes: EOMI/PERRLA. Ears: Normal hearing. Normal anatomy. Neck/trachea: Trachea midline, supple. Nose: Normal external anatomy. Mouth: Moist mucous membranes. Chest: Decreased air entry bilaterally. No wheezing or rhonchi. Cardiovascular: Positive S1, positive S2. Regular rate and rhythm. Abdomen: Positive bowel sounds in all 4 quadrants. Soft, non-tender, non- distended. : Deferred. Rectal: Deferred. Skin: Warm, dry. Intact. Extremities: 2+ radial pulses bilaterally. No lower extremity edema. Neuro: Awake, alert, oriented x3. No gross motor or sensory deficits. Cranial nerves II through XII intact. Gait not assessed. Labs/Diagnostic Data Labs Test 04/05/24 20:15 04/05/24 07:00 04/05/24 04:30 04/04/24 20:26 Range/Units POC Glucose 221 H 70-106 mg/dl Blood Gas Specimen Type Arterial Blood Gas Sample Site Right radial Blood Gas Patient Temperature 37.0 Arterial Blood Date Drawn [id number] Arterial Blood pH 7.416 7.350-7.450 Arterial Blood Partial Pressure CO2 36.6 32.0-45.0 mmHg Arterial Blood Partial Pressure O2 71.9 L 83.0-108.0 mmHg Arterial Blood HCO3 23.0 21.0-28.0 mmol/L Arterial Blood Oxygen Saturation 96.3 94.0-98.0 % Arterial Blood Base Excess -1.1 -2.0-3.0 mmol/L Arterial Blood Oxyhemoglobin 95.3 94.0-98.0 % Arterial Blood Carboxyhemoglobin 0.5 0.5-1.5 % Arterial Blood Methemoglobin 0.5 0.0-1.5 % Raciel Test Yes Blood Gas Total Hemoglobin 13.30 12.0-16.0 g/dL Blood Gas Set Respiration Rate 12.0 Blood Gas Modality Mask - bipap FiO2 % 70.0 Blood Gas EPAP 5 Blood Gas IPAP 15 White Blood Count 6.0 # 4.4-10.8 10^3/uL Red Blood Count 3.82 L 4.0-5.20 10^6/uL Hemoglobin 12.1 L 12.2-16.2 g/dL Hematocrit 36.5 36.0-46.0 % Mean Corpuscular Volume 95.6 80.0-100.0 fL Mean Corpuscular Hemoglobin 31.7 28.0-32.0 pg Mean Corpuscular Hemoglobin Concent 33.2 32.0-36.0 g/dL Red Cell Distribution Width 14.6 H 11.8-14.3 % Platelet Count 150 140-450 10^3/uL Mean Platelet Volume 9.4 6.9-10.8 fL Neutrophils (%) (Auto) 89.2 H 37.0-80.0 % Lymphocytes (%) (Auto) 8.2 L 10.0-50.0 % Monocytes (%) (Auto) 2.4 0.0-12.0 % Eosinophils (%) (Auto) 0.0 0.0-7.0 % Basophils (%) (Auto) 0.2 0.0-2.0 % Neutrophils # (Auto) 5.3 1.6-8.6 10 ^3/uL Lymphocytes # (Auto) 0.5 0.4-5.4 10 ^3/uL Monocytes # (Auto) 0.1 0-1.3 10 ^3/uL Eosinophils # (Auto) 0 0-0.8 10 ^3/uL Basophils # (Auto) 0 0-0.2 10 ^3/uL Nucleated Red Blood Cells 0.1 % Sodium Level 141 136-145 mmol/L Potassium Level 4.0 3.5-5.1 mmol/L Chloride Level 107 98-107 mmol/L Carbon Dioxide Level 25 20-31 mmol/L Anion Gap 9 5-15 Blood Urea Nitrogen 21 9-23 mg/dL Creatinine 0.93 0.550-1.02 mg/dL Glomerular Filtration Rate Calc 68 >90 mL/min BUN/Creatinine Ratio 22.6 H 10.0-20.0 Serum Glucose 161 H 74-106 mg/dL Calcium Level 9.6 8.7-10.4 mg/dL Triglycerides Level 65 < 150 mg/dL Cholesterol Level 91 < 200 mg/dL LDL Cholesterol 59 < 100 mg/dL HDL Cholesterol 23 L 40-59 mg/dL Urine Color Colorless Yellow Urine Clarity Clear Clear Urine pH 5.0 5.0-9.0 Urine Specific [place] 1.006 1.001-1.035 Urine Protein Negative Negative Urine Ketones Negative Negative Urine Blood Negative Negative /uL Urine Nitrite Negative Negative Urine Bilirubin Negative Negative Urine Urobilinogen Normal Negative mg/dL Urine Leukocyte Esterase Negative Negative /uL Urine RBC 1 0 - 4 /hpf Urine WBC <1 0 - 5 /hpf Urine Squamous Epithelial Cells None seen <5 /hpf Urine Bacteria None seen None Seen /hpf Urine Hyaline Casts Few 0 - 2 /lpf Urine Mucus Few None Seen Urine Glucose Normal Normal mg/dL Test 04/04/24 20:04 04/04/24 14:17 04/04/24 13:24 Range/Units Troponin I High Sensitivity 327 *H </=34 ng/L Influenza Type A Antigen Negative Negative Influenza Type B Antigen Negative Negative SARS-CoV-2 Antigen (Rapid) Negative NEGATIVE Lactic Acid Level 1.3 0.4-2.0 mmol/L B-Type Natriuretic Peptide 639.11 0-100 pg/mL Microbiology Date/Time Source Procedure Growth Status 04/04/24 15:24 Blood Blood Culture - Preliminary NO GROWTH AFTER 24 HOURS OF INCUBATION. Resulted Assessment Impression: Acute on chronic hypoxic respiratory failure 2/2 AE COPD Acute exacerbation of COPD Pulmonary edema DM type II with hyperglycemia Coronary artery disease Morbid obesity Left pleural effusion Atelectasis Plan: Supplemental oxygen 3 LPM Oxymizer Titrate to keep O2 sats above 92%. Improved O2 requirements Taper O2 as tolerated. F/u echocardiogram. Continue bronchodilators. Continue antibiotics IV steroids - transition to PO as tolerated. Incentive spirometry Diurese w/ Lasix BID Monitor renal function. Monitor electrolytes. Supplement as necessary. Monitor ins and outs. Accu-Cheks, ISS. Diet and lifestyle modifications for weight reduction Morbid obesity - complicates all care DVT prophylaxis. D/w MICHELLE Olivares. Prognosis: Poor given patient's multiple co-morbidities. Rest of plan per hospitalist and other consultants. Thank you Dr. Chad Kebede MD, for allowing me to participate in this patient's care. Further recommendations will depend on the patient's clinical course. Please do not hesitate to contact me if you have any questions or concerns. This medical document was created using an electronic medical record system with [employer] dictation system. Although these documentations are being carefully reviewed, there may still be some phonetic and typographical changes. The errors are purely typographical, due to imperfection on the software program, and do not reflect any compromise in the patient's medical care. Plan discussed with: Patient, Other (MD Delio Jaquez) MARYANNE ELLIOTT MD Apr 05, 2024 21:09
--- NOTE | 2024-04-05 22:46 | DVHPN2 ---
Progress Note - Dictate Date Seen: Apr 05, 2024 Medical Necessity Reason Pt with a Central, PICC or Fol: No Subjective Patient was seen and evaluated in follow up. Patient is complaining of SOB, she is on 4 L Oxymizer. BS in the 200s. Patient is planned for an echocardiogram to evaluate cardiac function. Blood cultures are pending. vital signs Vital Sign Date Time Temp Pulse Resp B/P (MAP) Pulse Ox O2 Delivery O2 Flow Rate FiO2 04/05/24 10:23 166/64 04/05/24 10:22 84 04/05/24 09:49 22 96 04/05/24 09:43 Oxymizer 4.0 04/05/24 09:43 100 100 04/05/24 07:30 98.8 98.8 Total Intake and Output 04/04/24 04/04/24 04/05/24 15:00 23:00 07:00 Intake Total 300 ml Output Total 2350 ml Balance 300 ml -2350 ml medications Current Medications Medications Dose Ordered Sig/Jeanne Route Start Time Stop Time Status Last Admin Dose Admin Albuterol 2.5 mg Q4HWA PRN NEB 04/04/24 17:15 04/05/24 09:43 2.5 MG Ipratropium [place] 0.5 mg Q4HWA PRN NEB 04/04/24 17:15 04/05/24 09:43 0.5 MG Methylprednisolone Sodium Succinate 40 mg BID IV 04/04/24 17:15 04/05/24 10:20 40 MG Furosemide 40 mg BID IV 04/04/24 22:00 04/05/24 10:22 40 MG Ceftriaxone Sodium 50 ml @ 100 mls/hr DAILY IV 04/04/24 17:15 04/05/24 10:21 100 MLS/HR Azithromycin 500 mg DAILY PO 04/05/24 10:00 04/05/24 10:21 500 MG Diagnostic Test (Pha) 1 strip IQ4HR 04/04/24 20:00 04/05/24 08:13 1 STRIP Insulin Human Regular IQ4HR SC 04/04/24 20:00 04/05/24 08:17 2 UNITS Dextrose 50 ml UD PRN IV 04/04/24 17:15 Aspirin 81 mg DAILY PO 04/05/24 10:00 04/05/24 10:21 81 MG Clopidogrel Bisulfate 75 mg DAILY PO 04/05/24 10:00 04/05/24 10:21 75 MG Atorvastatin Calcium 80 mg HS PO 04/04/24 22:00 04/05/24 00:10 80 MG Metoprolol Tartrate 25 mg Q12HR PO 04/04/24 22:00 04/05/24 10:22 25 MG Acetaminophen 650 mg Q6HP PRN PO 04/04/24 17:15 Zolpidem Tartrate 5 mg QHSP PRN PO 04/04/24 17:15 Lorazepam 0.5 mg Q6HP PRN PO 04/04/24 17:15 Docusate Sodium 100 mg DAILY PO 04/05/24 10:00 04/05/24 10:20 100 MG Enoxaparin Sodium 100 mg Q12HR SC 04/04/24 22:00 04/05/24 10:22 100 MG Ondansetron HCl 4 mg Q4HP PRN IV 04/04/24 17:15 Lisinopril 10 mg DAILY PO 04/05/24 10:00 04/05/24 10:23 10 MG objective GENERAL: Awake, alert, oriented. LUNGS: Decreased breath sounds. CARDIOVASCULAR: Heart sounds are good. ABDOMEN: Soft. laboratory and microbiology Laboratory Tests 04/05/24 04:30 Test 04/05/24 04:30 Range/Units Serum Glucose 161 H 74-106 mg/dL Problem List Acute respiratory failure with hypoxemia. Elevated troponin. Diabetes mellitus type 2 uncontrolled. Acute exacerbation of chronic obstructive pulmonary disease (COPD). Assessment/Plan Continued all current supportive medical care. Echcardiogram. Aspirin, Lipitor, Metoprolol, Plavix. IV antibiotics as ordered. DVT prophylactics. Diuretics with Lasix. Lisinopril. Additional plan as per the hospital course. Critical care time of 45 minutes provided to include time spent evaluation of patient at bedside, when appropriate patient/family education for diagnosis, treatment plan, review of pertinent medical information and discussion of care with specialty providers and PCP. Plan discussed with: Patient HUMBLE MCCAIN MD Apr 05, 2024 11:13
[2024-04-06] VITALS (13 sets, daily range): BP systolic 114–183; BP diastolic 48–69; PULSE 71–85; RESP 17–20; TEMP 97.9–98.2; O2SAT 93–98
[2024-04-06] MEDS: LORazepam 0.5 MG TAB PO PRN (00:44)
--- NOTE | 2024-04-06 02:51 | DVHSR ---
APPROVED REPORT EXAM: Two-dimensional and M-mode echocardiogram with Doppler and color Doppler. Blood Pressure: 124/75 mmHg INDICATION Chest Pain RISK FACTORS Height: 65, Weight: 280 DIMENSIONS LVDd5.2 (3.8-5.7cm)LA (2D)4.6 (1.9-4.0cm)Aortic Root3.2 (2.0-3.7cm) LVDs4.5 (2.5-4.0cm)LA (MM) (1.9-4.0cm)Aortic Cusp Exc1.6 (1.5-2.0cm) EF (%) 30.0 (55-70%)Rt. Atrium3.5 (1.9-4.0cm)Asc. Aorta cm Mitral Valve MitralMitral Stenosis E wave1.30m/sMV Mean GR.4mmHg A wave1.19m/sMV Peak GR.135mmHg E/A ratio1.12D MVAcm2 DECEL [id number] 1/2 [id number] IVRTmsDop MVA4.68cm2 Aortic Valve Aortic ValveAortic Stenosis V11.00m/[place] Mean GR.5mmHg V21.52m/[place] Peak GR.9mmHg LVOT Diameter2.0 (1.8-2.4cm)Doppler AVA2.07cm2 Pulmonic Valve V21.28m/s Tricuspid Valve TR Velocity3.34m/s [id number] Other Information Technically limited study due to body habitus. Conclusion MODERATELY DILATED LV LV IS MODERATELY HYPOKINETIC MODERATE DEGREE LVH LV EJECTION FRACTION IS IN RANGE OF ONLY 30% AORTIC LEAFLETS ARE MODERATELY CALCIFIED MODERATELY DILATED LA POSTERIOR MITRAL LEAFLET IS MODERATELY CALCIFIED
[2024-04-06] MEDS ORDERED: BENA10TA16 GT (06:16)
[2024-04-06] MEDS ORDERED: METF-370 PO (06:16)
[2024-04-06] MEDS ORDERED: FURO40TA4 PO (06:16)
--- NOTE | 2024-04-06 10:12 | DVHPN2 ---
Reviewed: Care Plan, H&P, Labs, Medications, Previous Orders, Radiology Changes from previous H/P or p: No Changes Eyes: No Pain, No Vision change, No Conjunctivae inflammation, No Eyelid inflammation, No Other, No Redness ENT: No Ear pain, No Ear discharge, No Nose pain, No Nose discharge, No Nose congestion, No Mouth pain, No Mouth swelling, No Throat pain, No Throat swelling, No Other Cardiovascular: Chest Pain, Palpitations Respiratory: Cough, Dry, Shortness of breath Gastrointestinal: No Nausea, No Vomiting, No Abdominal Pain, No Diarrhea, No Constipation, No Melena, No Hematochezia, No Other Genitourinary: No Dysuria, No Frequency, No Incontinence, No Hematuria, No Retention, No Other Musculoskeletal: No other, No neck pain, No shoulder pain, No arm pain, No back pain, No hand pain, No leg pain, No foot pain Skin: No Rash, No Lesions, No Jaundice, No Bruising, No Other Objective Vitals Vital Signs Date Time Temp Pulse Resp B/P (MAP) Pulse Ox O2 Delivery O2 Flow Rate FiO2 04/06/24 09:38 183/56 04/06/24 09:38 79 04/06/24 09:00 97.9 20 94 97.9 04/06/24 07:09 Nasal Cannula 2.0 04/06/24 07:09 28 Intake/Output Intake and Output 04/06/24 07:00 Intake Total 50 ml Output Total 1020 ml Balance -970 ml Intake IV Total 50 ml Output Urine Total 1020 ml Medications Current Medications Medications Dose Ordered Sig/Jeanne Route Start Time Stop Time Status Last Admin Dose Admin Albuterol 2.5 mg Q4HWA PRN NEB 04/04/24 17:15 04/06/24 07:08 2.5 MG Ipratropium [place] 0.5 mg Q4HWA PRN NEB 04/04/24 17:15 04/06/24 07:09 0.5 MG Methylprednisolone Sodium Succinate 40 mg BID IV 04/04/24 17:15 04/06/24 09:36 40 MG Furosemide 40 mg BID IV 04/04/24 22:00 04/06/24 09:37 40 MG Ceftriaxone Sodium 50 ml @ 100 mls/hr DAILY IV 04/04/24 17:15 04/06/24 09:39 100 MLS/HR Azithromycin 500 mg DAILY PO 04/05/24 10:00 04/06/24 09:38 500 MG Diagnostic Test (Pha) 1 strip IQ4HR 04/04/24 20:00 04/06/24 09:37 1 STRIP Insulin Human Regular IQ4HR SC 04/04/24 20:00 04/06/24 09:53 2 UNITS Dextrose 50 ml UD PRN IV 04/04/24 17:15 Aspirin 81 mg DAILY PO 04/05/24 10:00 04/06/24 09:38 81 MG Clopidogrel Bisulfate 75 mg DAILY PO 04/05/24 10:00 04/06/24 09:38 75 MG Atorvastatin Calcium 80 mg HS PO 04/04/24 22:00 04/05/24 21:35 80 MG Metoprolol Tartrate 25 mg Q12HR PO 04/04/24 22:00 04/06/24 09:38 25 MG Acetaminophen 650 mg Q6HP PRN PO 04/04/24 17:15 04/05/24 11:21 650 MG Zolpidem Tartrate 5 mg QHSP PRN PO 04/04/24 17:15 Lorazepam 0.5 mg Q6HP PRN PO 04/04/24 17:15 04/06/24 00:44 0.5 MG Docusate Sodium 100 mg DAILY PO 04/05/24 10:00 04/06/24 09:38 100 MG Enoxaparin Sodium 100 mg Q12HR SC 04/04/24 22:00 04/06/24 09:36 100 MG Ondansetron HCl 4 mg Q4HP PRN IV 04/04/24 17:15 Lisinopril 10 mg DAILY PO 04/05/24 10:00 04/06/24 09:38 10 MG Laboratory Results Laboratory Tests 04/05/24 04:30 Urinalysis Test 04/04/24 20:26 Urine Color Colorless (Yellow) Urine Clarity Clear (Clear) Urine pH 5.0 (5.0-9.0) Urine Specific [place] 1.006 (1.001-1.035) Urine Protein Negative (Negative) Urine Ketones Negative (Negative) Urine Blood Negative /uL (Negative) Urine Nitrite Negative (Negative) Urine Bilirubin Negative (Negative) Urine Urobilinogen Normal mg/dL (Negative) Urine Leukocyte Esterase Negative /uL (Negative) Urine RBC 1 /hpf (0 - 4) Urine WBC <1 /hpf (0 - 5) Urine Squamous Epithelial Cells None seen /hpf (<5) Urine Bacteria None seen /hpf (None Seen) Urine Hyaline Casts Few /lpf (0 - 2) Urine Mucus Few (None Seen) Urine Glucose Normal mg/dL (Normal) Microbiology Microbiology Date/Time Source Procedure Growth Status 04/04/24 15:24 Blood Blood Culture - Preliminary NO GROWTH AFTER 24 HOURS OF INCUBATION. Resulted Labs and/or images reviewed: Labs reviewed by me, Image(s) reviewed by me Assessment/Plan Assessment/Plan Acute respiratory failure with hypoxemia. Consult for Dr. Aguero Elevated troponin. Cardiology consult by Dr. Loyd Moran appreciated, placed on aspirin Lipitor metoprolol Plavix lisinopril and Lasix Diabetes mellitus type 2 uncontrolled. Insulin sliding scale Acute exacerbation of chronic obstructive pulmonary disease (COPD): Albuterol Atrovent Possible community-acquired pneumonia: Rocephin azithromycin Moderate malnutrition History of coronary artery disease with four stents History of NE Hypertension Hypercholesterolemia We will check D-dimer Time spent 65 minutes Condition is guarded Advanced care planning time 20 minutes Plan discussed with: Patient My Orders Orders - HARMONY MEZA MD Procedure Category Date Status Time *Consult CONS 04/05/24 Transmitted / 12:34 Cardiac DIET 04/05/24 Transmitted Diet-2gna,Lofat,Lochol Dinner Date of Service: Apr 06, 2024 Billing Provider: HARMONY MEZA MD Common Visit Codes: [id number] INP/OBS CARE(HIGH) HARMONY MEZA MD Apr 06, 2024 10:12
[2024-04-06] MEDS: PANTOPRAZOLE 40 MG TAB PO ONE ×2 (12:36→13:05)
[2024-04-06] MEDS: GABAPENTIN 400 MG CAP PO SCH (14:04)
--- NOTE | 2024-04-06 21:50 | DVHPN2 ---
Progress Note - Dictate Date Seen: Apr 06, 2024 Medical Necessity Reason Pt with a Central, PICC or Fol: No Subjective Patient was seen and evaluated in follow up. Patient is complaining of SOB, she is on 2 L Oxymizer. Echocardiogram revealed an EF of 30%. D-DIMER 0.87, GLUC 179. vital signs Vital Sign Date Time Temp Pulse Resp B/P (MAP) Pulse Ox O2 Delivery O2 Flow Rate FiO2 04/06/24 13:00 98.2 72 20 114/51 (72) 93 98.2 04/06/24 08:00 Oxymizer 2 N/A Total Intake and Output 04/05/24 04/05/24 04/06/24 15:00 23:00 07:00 Intake Total 50 ml Output Total 1020 ml Balance 50 ml -1020 ml medications Current Medications Medications Dose Ordered Sig/Jeanne Route Start Time Stop Time Status Last Admin Dose Admin Albuterol 2.5 mg Q4HWA PRN NEB 04/04/24 17:15 04/06/24 07:08 2.5 MG Ipratropium [place] 0.5 mg Q4HWA PRN NEB 04/04/24 17:15 04/06/24 07:09 0.5 MG Methylprednisolone Sodium Succinate 40 mg BID IV 04/04/24 17:15 04/06/24 09:36 40 MG Furosemide 40 mg BID IV 04/04/24 22:00 04/06/24 09:37 40 MG Ceftriaxone Sodium 50 ml @ 100 mls/hr DAILY IV 04/04/24 17:15 04/06/24 09:39 100 MLS/HR Azithromycin 500 mg DAILY PO 04/05/24 10:00 04/06/24 09:38 500 MG Diagnostic Test (Pha) 1 strip IQ4HR 04/04/24 20:00 04/06/24 12:36 1 STRIP Insulin Human Regular IQ4HR SC 04/04/24 20:00 04/06/24 12:38 4 UNITS Dextrose 50 ml UD PRN IV 04/04/24 17:15 Aspirin 81 mg DAILY PO 04/05/24 10:00 04/06/24 09:38 81 MG Clopidogrel Bisulfate 75 mg DAILY PO 04/05/24 10:00 04/06/24 09:38 75 MG Atorvastatin Calcium 80 mg HS PO 04/04/24 22:00 04/05/24 21:35 80 MG Metoprolol Tartrate 25 mg Q12HR PO 04/04/24 22:00 04/06/24 09:38 25 MG Acetaminophen 650 mg Q6HP PRN PO 04/04/24 17:15 04/05/24 11:21 650 MG Zolpidem Tartrate 5 mg QHSP PRN PO 04/04/24 17:15 Lorazepam 0.5 mg Q6HP PRN PO 04/04/24 17:15 04/06/24 00:44 0.5 MG Docusate Sodium 100 mg DAILY PO 04/05/24 10:00 04/06/24 09:38 100 MG Enoxaparin Sodium 100 mg Q12HR SC 04/04/24 22:00 04/06/24 09:36 100 MG Ondansetron HCl 4 mg Q4HP PRN IV 04/04/24 17:15 Lisinopril 10 mg DAILY PO 04/05/24 10:00 04/06/24 09:38 10 MG Gabapentin 800 mg TID PO 04/06/24 14:00 Pantoprazole Sodium 40 mg DAILY@0600 PO 04/07/24 06:00 objective GENERAL: Awake, alert, oriented. LUNGS: Decreased breath sounds. CARDIOVASCULAR: Heart sounds are good. ABDOMEN: Soft. laboratory and microbiology Laboratory Tests 04/05/24 04:30 Test 04/05/24 04:30 Range/Units Serum Glucose 161 H 74-106 mg/dL Problem List Acute respiratory failure with hypoxemia. Elevated troponin. Diabetes mellitus type 2 uncontrolled. Acute exacerbation of chronic obstructive pulmonary disease (COPD). Assessment/Plan Continued all current supportive medical care. Aspirin, Lipitor, Metoprolol, Plavix. IV antibiotics as ordered. DVT prophylactics. Diuretics with Lasix. Lisinopril. Additional plan as per the hospital course. Plan discussed with: Patient HUMBLE MCCAIN MD Apr 06, 2024 14:03
--- NOTE | 2024-04-06 22:26 | DVHPN2 ---
Progress Note - Dictate Date Seen: Apr 06, 2024 Medical Necessity Reason Pt with a Central, PICC or Fol: Yes The following are medically ne: Morel Catheter Reason for morel catheter: Strict I&O Subjective Patient seen and examined at bedside. Remains on supplemental oxygen Overnight events reviewed. vital signs Vital Sign Date Time Temp Pulse Resp B/P (MAP) Pulse Ox O2 Delivery O2 Flow Rate FiO2 04/06/24 21:52 76 18 96 04/06/24 21:15 156/50 04/06/24 19:20 Oxymizer 2 N/A 04/06/24 17:00 98.1 98.1 Total Intake and Output 04/05/24 04/05/24 04/06/24 15:00 23:00 07:00 Intake Total 50 ml Output Total 1020 ml Balance 50 ml -1020 ml medications Current Medications Medications Dose Ordered Sig/Jeanne Route Start Time Stop Time Status Last Admin Dose Admin Albuterol 2.5 mg Q4HWA PRN NEB 04/04/24 17:15 04/06/24 21:49 2.5 MG Ipratropium [place] 0.5 mg Q4HWA PRN NEB 04/04/24 17:15 04/06/24 21:50 0.5 MG Methylprednisolone Sodium Succinate 40 mg BID IV 04/04/24 17:15 04/06/24 21:14 40 MG Furosemide 40 mg BID IV 04/04/24 22:00 04/06/24 09:37 40 MG Ceftriaxone Sodium 50 ml @ 100 mls/hr DAILY IV 04/04/24 17:15 04/06/24 09:39 100 MLS/HR Azithromycin 500 mg DAILY PO 04/05/24 10:00 04/06/24 09:38 500 MG Diagnostic Test (Pha) 1 strip IQ4HR 04/04/24 20:00 04/06/24 20:00 1 STRIP Insulin Human Regular IQ4HR SC 04/04/24 20:00 04/06/24 21:27 12 UNITS Dextrose 50 ml UD PRN IV 04/04/24 17:15 Aspirin 81 mg DAILY PO 04/05/24 10:00 04/06/24 09:38 81 MG Clopidogrel Bisulfate 75 mg DAILY PO 04/05/24 10:00 04/06/24 09:38 75 MG Atorvastatin Calcium 80 mg HS PO 04/04/24 22:00 04/05/24 21:35 80 MG Metoprolol Tartrate 25 mg Q12HR PO 04/04/24 22:00 04/06/24 21:15 25 MG Acetaminophen 650 mg Q6HP PRN PO 04/04/24 17:15 04/05/24 11:21 650 MG Zolpidem Tartrate 5 mg QHSP PRN PO 04/04/24 17:15 Lorazepam 0.5 mg Q6HP PRN PO 04/04/24 17:15 04/06/24 00:44 0.5 MG Docusate Sodium 100 mg DAILY PO 04/05/24 10:00 04/06/24 09:38 100 MG Enoxaparin Sodium 100 mg Q12HR SC 04/04/24 22:00 04/06/24 21:15 100 MG Ondansetron HCl 4 mg Q4HP PRN IV 04/04/24 17:15 Lisinopril 10 mg DAILY PO 04/05/24 10:00 04/06/24 09:38 10 MG Gabapentin 800 mg TID PO 04/06/24 14:00 04/06/24 21:15 800 MG Pantoprazole Sodium 40 mg DAILY@0600 PO 04/07/24 06:00 objective Gen.: Patient lying in bed in no apparent distress. On supplemental oxygen. Head: Normocephalic, atraumatic. Eyes: EOMI/PERRLA. Ears: Normal hearing. Normal anatomy. Neck/trachea: Trachea midline, supple. Nose: Normal external anatomy. Mouth: Moist mucous membranes. Chest: Decreased air entry bilaterally. No wheezing or rhonchi. Cardiovascular: Positive S1, positive S2. Regular rate and rhythm. Abdomen: Positive bowel sounds in all 4 quadrants. Soft, non-tender, non- distended. : Deferred. Rectal: Deferred. Skin: Warm, dry. Intact. Extremities: 2+ radial pulses bilaterally. No lower extremity edema. Neuro: Awake, alert, oriented x3. No gross motor or sensory deficits. Cranial nerves II through XII intact. Gait not assessed. laboratory and microbiology Laboratory Tests 04/05/24 04:30 Test 04/05/24 04:30 Range/Units Serum Glucose 161 H 74-106 mg/dL Assessment/Plan Impression: Acute on chronic hypoxic respiratory failure 2/2 AE COPD Acute exacerbation of COPD Pulmonary edema DM type II with hyperglycemia Coronary artery disease Morbid obesity Left pleural effusion Atelectasis Events: Remains on supplemental oxygen, 2 LPM Oxymizer Taper O2 as tolerated Improved O2 requirements Taper as tolerated - Goal is nasal cannula Continue bronchodilators Continue IV steroids Continue antibiotics Incentive spirometry Diurese w/ Lasix as tolerated Monitor renal function. Monitor electrolytes. Supplement as necessary. Monitor ins and outs. Therapeutic Lovenox GI prophylaxis w/ Protonix Labs and imaging reviewed. Rest of plan as noted below. Plan: Supplemental oxygen Titrate to keep O2 sats above 92%. F/u echocardiogram. Continue bronchodilators. Continue antibiotics IV steroids - transition to PO as tolerated. Incentive spirometry Diurese w/ Lasix BID Monitor renal function. Monitor electrolytes. Supplement as necessary. Monitor ins and outs. Accu-Cheks, ISS. Diet and lifestyle modifications for weight reduction Morbid obesity - complicates all care GI prophylaxis w/ Protonix DVT prophylaxis. Prognosis: Poor given patient's multiple co-morbidities. Rest of plan per hospitalist and other consultants. Thank you Dr. Chad Kebede MD, for allowing me to participate in this patient's care. Further recommendations will depend on the patient's clinical course. Please do not hesitate to contact me if you have any questions or concerns. This medical document was created using an electronic medical record system with [employer] dictation system. Although these documentations are being carefully reviewed, there may still be some phonetic and typographical changes. The errors are purely typographical, due to imperfection on the software program, and do not reflect any compromise in the patient's medical care. Plan discussed with: Patient, Other (MICHELLE Wayne) MARYANNE ELLIOTT MD Apr 06, 2024 22:26
[2024-04-07] VITALS (10 sets, daily range): BP systolic 95–151; BP diastolic 45–67; PULSE 62–74; RESP 17–21; TEMP 97.4–98.6; O2SAT 91–99
[2024-04-07] MEDS: PANTOPRAZOLE 40 MG TAB PO SCH (05:03)
--- NOTE | 2024-04-07 11:42 | DVHPN2 ---
Reviewed: Care Plan, H&P, Labs, Medications, Previous Orders, Radiology Changes from previous H/P or p: No Changes Eyes: No Pain, No Vision change, No Conjunctivae inflammation, No Eyelid inflammation, No Other, No Redness ENT: No Ear pain, No Ear discharge, No Nose pain, No Nose discharge, No Nose congestion, No Mouth pain, No Mouth swelling, No Throat pain, No Throat swelling, No Other Cardiovascular: Chest Pain, Palpitations Respiratory: Cough, Dry, Shortness of breath Gastrointestinal: No Nausea, No Vomiting, No Abdominal Pain, No Diarrhea, No Constipation, No Melena, No Hematochezia, No Other Genitourinary: No Dysuria, No Frequency, No Incontinence, No Hematuria, No Retention, No Other Musculoskeletal: No other, No neck pain, No shoulder pain, No arm pain, No back pain, No hand pain, No leg pain, No foot pain Skin: No Rash, No Lesions, No Jaundice, No Bruising, No Other Objective Vitals Vital Signs Date Time Temp Pulse Resp B/P (MAP) Pulse Ox O2 Delivery O2 Flow Rate FiO2 04/07/24 11:10 74 18 04/07/24 11:04 96 Nasal Cannula 2.0 04/07/24 11:04 28 04/07/24 10:10 151/45 04/07/24 09:00 97.7 97.7 Intake/Output Intake and Output 04/07/24 07:00 Intake Total 1250 ml Balance 1250 ml Intake Oral 1200 ml IV Total 50 ml # Voids 1 # Bowel Movements 2 Medications Current Medications Medications Dose Ordered Sig/Jeanne Route Start Time Stop Time Status Last Admin Dose Admin Albuterol 2.5 mg Q4HWA PRN NEB 04/04/24 17:15 04/07/24 11:03 2.5 MG Ipratropium [place] 0.5 mg Q4HWA PRN NEB 04/04/24 17:15 04/07/24 11:03 0.5 MG Methylprednisolone Sodium Succinate 40 mg BID IV 04/04/24 17:15 04/07/24 10:08 40 MG Furosemide 40 mg BID IV 04/04/24 22:00 04/07/24 10:08 40 MG Ceftriaxone Sodium 50 ml @ 100 mls/hr DAILY IV 04/04/24 17:15 04/07/24 10:11 100 MLS/HR Azithromycin 500 mg DAILY PO 04/05/24 10:00 04/07/24 10:09 500 MG Diagnostic Test (Pha) 1 strip IQ4HR 04/04/24 20:00 04/07/24 08:50 1 STRIP Insulin Human Regular IQ4HR SC 04/04/24 20:00 04/07/24 08:50 2 UNITS Dextrose 50 ml UD PRN IV 04/04/24 17:15 Aspirin 81 mg DAILY PO 04/05/24 10:00 04/07/24 10:11 81 MG Clopidogrel Bisulfate 75 mg DAILY PO 04/05/24 10:00 04/07/24 10:10 75 MG Atorvastatin Calcium 80 mg HS PO 04/04/24 22:00 04/06/24 22:26 80 MG Metoprolol Tartrate 25 mg Q12HR PO 04/04/24 22:00 04/07/24 10:10 25 MG Acetaminophen 650 mg Q6HP PRN PO 04/04/24 17:15 04/05/24 11:21 650 MG Zolpidem Tartrate 5 mg QHSP PRN PO 04/04/24 17:15 Lorazepam 0.5 mg Q6HP PRN PO 04/04/24 17:15 04/06/24 22:31 0.5 MG Docusate Sodium 100 mg DAILY PO 04/05/24 10:00 04/07/24 10:11 100 MG Enoxaparin Sodium 100 mg Q12HR SC 04/04/24 22:00 04/07/24 10:11 100 MG Ondansetron HCl 4 mg Q4HP PRN IV 04/04/24 17:15 Lisinopril 10 mg DAILY PO 04/05/24 10:00 04/07/24 10:09 10 MG Gabapentin 800 mg TID PO 04/06/24 14:00 04/07/24 05:02 800 MG Pantoprazole Sodium 40 mg DAILY@0600 PO 04/07/24 06:00 04/07/24 05:03 40 MG Laboratory Results Laboratory Tests 04/05/24 04:30 Urinalysis Test 04/04/24 20:26 Urine Color Colorless (Yellow) Urine Clarity Clear (Clear) Urine pH 5.0 (5.0-9.0) Urine Specific [place] 1.006 (1.001-1.035) Urine Protein Negative (Negative) Urine Ketones Negative (Negative) Urine Blood Negative /uL (Negative) Urine Nitrite Negative (Negative) Urine Bilirubin Negative (Negative) Urine Urobilinogen Normal mg/dL (Negative) Urine Leukocyte Esterase Negative /uL (Negative) Urine RBC 1 /hpf (0 - 4) Urine WBC <1 /hpf (0 - 5) Urine Squamous Epithelial Cells None seen /hpf (<5) Urine Bacteria None seen /hpf (None Seen) Urine Hyaline Casts Few /lpf (0 - 2) Urine Mucus Few (None Seen) Urine Glucose Normal mg/dL (Normal) Microbiology Microbiology Date/Time Source Procedure Growth Status 04/04/24 15:24 Blood Blood Culture - Preliminary NO GROWTH AFTER 48 HOURS OF INCUBATION. Resulted Labs and/or images reviewed: Labs reviewed by me, Image(s) reviewed by me Assessment/Plan Assessment/Plan Acute respiratory failure with hypoxemia. Consult for Dr. Aguero Elevated troponin. Cardiology consult by Dr. Lody Moran appreciated, placed on aspirin Lipitor metoprolol Plavix lisinopril and Lasix Diabetes mellitus type 2 uncontrolled. Insulin sliding scale Acute exacerbation of chronic obstructive pulmonary disease (COPD): Albuterol Atrovent Possible community-acquired pneumonia: Rocephin azithromycin Moderate malnutrition History of coronary artery disease with four stents History of [place] Hypertension Hypercholesterolemia D-dimer normal Time spent 45 minutes Condition is guarded Advanced care planning time 20 minutes Plan discussed with: Patient Date of Service: Apr 07, 2024 Billing Provider: HARMONY MEZA MD Common Visit Codes: [id number] INP/OBS CARE(HIGH) HARMONY MEZA MD Apr 07, 2024 11:42
[2024-04-07] MEDS ORDERED: LEVO500T91 PO (11:43)
[2024-04-07] MEDS ORDERED: METH4PAK PO (11:43)
--- NOTE | 2024-04-07 11:46 | DVHDS2 ---
Discharge Summary Date of Admission Apr 04, 2024 at 17:10 Date of Discharge: Apr 07, 2024 Admitting Diagnosis Increasing shortness of breath Wounds: None Labs/Diagnostic Data: Laboratory Results Test 04/07/24 08:05 04/06/24 10:16 04/05/24 07:00 04/05/24 04:30 POC Glucose 144 mg/dl (70-106) D-Dimer, Quantitative 0.87 mg/L FEU (0.0-0.49) Blood Gas Specimen Type Arterial Blood Gas Sample Site Right radial Blood Gas Patient Temperature 37.0 Arterial Blood Date Drawn [id number] Arterial Blood pH 7.416 (7.350-7.450) Arterial Blood Partial Pressure CO2 36.6 mmHg (32.0-45.0) Arterial Blood Partial Pressure O2 71.9 mmHg (83.0-108.0) Arterial Blood HCO3 23.0 mmol/L (21.0-28.0) Arterial Blood Oxygen Saturation 96.3 % (94.0-98.0) Arterial Blood Base Excess -1.1 mmol/L (-2.0-3.0) Arterial Blood Oxyhemoglobin 95.3 % (94.0-98.0) Arterial Blood Carboxyhemoglobin 0.5 % (0.5-1.5) Arterial Blood Methemoglobin 0.5 % (0.0-1.5) Raciel Test Yes Blood Gas Total Hemoglobin 13.30 g/dL (12.0-16.0) Blood Gas Set Respiration Rate 12.0 Blood Gas Modality Mask - bipap FiO2 % 70.0 Blood Gas EPAP 5 Blood Gas IPAP 15 White Blood Count 6.0 10^3/uL (4.4-10.8) Red Blood Count 3.82 10^6/uL (4.0-5.20) Hemoglobin 12.1 g/dL (12.2-16.2) Hematocrit 36.5 % (36.0-46.0) Mean Corpuscular Volume 95.6 fL (80.0-100.0) Mean Corpuscular Hemoglobin 31.7 pg (28.0-32.0) Mean Corpuscular Hemoglobin Concent 33.2 g/dL (32.0-36.0) Red Cell Distribution Width 14.6 % (11.8-14.3) Platelet Count 150 10^3/uL (140-450) Mean Platelet Volume 9.4 fL (6.9-10.8) Neutrophils (%) (Auto) 89.2 % (37.0-80.0) Lymphocytes (%) (Auto) 8.2 % (10.0-50.0) Monocytes (%) (Auto) 2.4 % (0.0-12.0) Eosinophils (%) (Auto) 0.0 % (0.0-7.0) Basophils (%) (Auto) 0.2 % (0.0-2.0) Neutrophils # (Auto) 5.3 10 ^3/uL (1.6-8.6) Lymphocytes # (Auto) 0.5 10 ^3/uL (0.4-5.4) Monocytes # (Auto) 0.1 10 ^3/uL (0-1.3) Eosinophils # (Auto) 0 10 ^3/uL (0-0.8) Basophils # (Auto) 0 10 ^3/uL (0-0.2) Nucleated Red Blood Cells 0.1 % Sodium Level 141 mmol/L (136-145) Potassium Level 4.0 mmol/L (3.5-5.1) Chloride Level 107 mmol/L (98-107) Carbon Dioxide Level 25 mmol/L (20-31) Anion Gap 9 (5-15) Blood Urea Nitrogen 21 mg/dL (9-23) Creatinine 0.93 mg/dL (0.550-1.02) Glomerular Filtration Rate Calc 68 mL/min (>90) BUN/Creatinine Ratio 22.6 (10.0-20.0) Serum Glucose 161 mg/dL (74-106) Calcium Level 9.6 mg/dL (8.7-10.4) Triglycerides Level 65 mg/dL (< 150) Cholesterol Level 91 mg/dL (< 200) LDL Cholesterol 59 mg/dL (< 100) HDL Cholesterol 23 mg/dL (40-59) Test 04/04/24 20:26 04/04/24 20:04 04/04/24 14:17 04/04/24 13:24 Urine Color Colorless (Yellow) Urine Clarity Clear (Clear) Urine pH 5.0 (5.0-9.0) Urine Specific [place] 1.006 (1.001-1.035) Urine Protein Negative (Negative) Urine Ketones Negative (Negative) Urine Blood Negative /uL (Negative) Urine Nitrite Negative (Negative) Urine Bilirubin Negative (Negative) Urine Urobilinogen Normal mg/dL (Negative) Urine Leukocyte Esterase Negative /uL (Negative) Urine RBC 1 /hpf (0 - 4) Urine WBC <1 /hpf (0 - 5) Urine Squamous Epithelial Cells None seen /hpf (<5) Urine Bacteria None seen /hpf (None Seen) Urine Hyaline Casts Few /lpf (0 - 2) Urine Mucus Few (None Seen) Urine Glucose Normal mg/dL (Normal) Troponin I High Sensitivity 327 ng/L (</=34) Influenza Type A Antigen Negative (Negative) Influenza Type B Antigen Negative (Negative) SARS-CoV-2 Antigen (Rapid) Negative (NEGATIVE) Lactic Acid Level 1.3 mmol/L (0.4-2.0) B-Type Natriuretic Peptide 639.11 pg/mL (0-100) Other Laboratory Tests 04/05/24 04:30 Brief Hx & Hospital Course: 3-year-old female morbidly obese BMI of 38 with a history of CHF COPD coronary artery disease status post stents history of [place] hypertension hypercholesterolemia diabetes came in complaining of shortness of breaths. Patient was seen by pulmonology Dr. Aguero placed on Rocephin albuterol Atrovent Solu-Medrol and azithromycin seen by secretary Dr. Maria advised to continue aspirin Lipitor lisinopril metoprolol Plavix and Lasix. Patient has possible community-acquired pneumonia which was treated with Rocephin and azithromycin at the time of discharge patient is using 2 L of oxygen which is his normal home oxygen afebrile she feels better and wants to go home. Discharged home on Levaquin and Medrol Dosepak she will continue all her home medication follow up with her primary Dr. Consults/Reason for consult Cardiology Dr. Moran Operations or Procedures None Condition at Discharge: Fair Final Diagnosis/Problems List Acute respiratory failure with hypoxemia. Consult for Dr. Aguero Elevated troponin. Cardiology consult by Dr. Loyd Moran appreciated, placed on aspirin Lipitor metoprolol Plavix lisinopril and Lasix Diabetes mellitus type 2 uncontrolled. Insulin sliding scale Acute exacerbation of chronic obstructive pulmonary disease (COPD): Albuterol Atrovent Possible community-acquired pneumonia: Rocephin azithromycin Moderate malnutrition History of coronary artery disease with four stents History of [place] Hypertension Hypercholesterolemia D-dimer normal Discharge Disposition: Home Discharge Instruct/Medications Diet: Cardiac 2g Na,low cholest Activity: Light activity Follow Up/Referral: Continue all your previous home medications Follow up with the primary doctor Medications: Levaquin Medrol Dosepak 39 (Time taken for discharge summary 39 minute) Discharge Statement: "Patient was advised to return to the ER or call 911 if any headaches, dizziness, shortness of breath, chest pain, abdominal pain, bleeding, fevers, or worsening of medical condition. Patient was counseled about treatment plan, medications, possible side effects, patientverbalized understanding. All questions were answered to the best of my ability. This discharge took greater then 30 minutes in planning, reviewing documentation, counseling the patient, and discussing with other team members." ASSESSMENT ASSESSMENT Hospital Course Improved Assessment Acute respiratory failure with hypoxemia. Consult for Dr. Aguero Elevated troponin. Cardiology consult by Dr. Loyd Moran appreciated, placed on aspirin Lipitor metoprolol Plavix lisinopril and Lasix Diabetes mellitus type 2 uncontrolled. Insulin sliding scale Acute exacerbation of chronic obstructive pulmonary disease (COPD): Albuterol Atrovent Possible community-acquired pneumonia: Rocephin azithromycin Moderate malnutrition History of coronary artery disease with four stents History of [place] Hypertension Hypercholesterolemia D-dimer normal Date of Service: Apr 07, 2024 Billing Provider: HARMONY MEZA MD Common Visit Codes: [id number] DISCH DAY >30min HARMONY MEZA MD Apr 07, 2024 11:46
--- NOTE | 2024-04-07 19:48 | DVHPN2 ---
Progress Note - Dictate Date Seen: Apr 07, 2024 Medical Necessity Reason Pt with a Central, PICC or Fol: Yes The following are medically ne: Morel Catheter Reason for morel catheter: Strict I&O Subjective Patient was seen and evaluated in follow up. Patient has no new complaints at this time. Patient denies any cardiac symptoms. Patient is cardiac stable for discharge. vital signs Vital Sign Date Time Temp Pulse Resp B/P (MAP) Pulse Ox O2 Delivery O2 Flow Rate FiO2 04/07/24 12:56 97.4 65 18 91 04/07/24 11:04 Nasal Cannula 2.0 04/07/24 11:04 28 04/07/24 10:10 151/45 Total Intake and Output 04/06/24 04/06/24 04/07/24 15:00 23:00 07:00 Intake Total 50 ml 900 ml 300 ml Balance 50 ml 900 ml 300 ml medications Current Medications Medications Dose Ordered Sig/Jeanne Route Start Time Stop Time Status Last Admin Dose Admin Albuterol 2.5 mg Q4HWA PRN NEB 04/04/24 17:15 04/07/24 11:03 2.5 MG Ipratropium [place] 0.5 mg Q4HWA PRN NEB 04/04/24 17:15 04/07/24 11:03 0.5 MG Methylprednisolone Sodium Succinate 40 mg BID IV 04/04/24 17:15 04/07/24 10:08 40 MG Furosemide 40 mg BID IV 04/04/24 22:00 04/07/24 10:08 40 MG Ceftriaxone Sodium 50 ml @ 100 mls/hr DAILY IV 04/04/24 17:15 04/07/24 10:11 100 MLS/HR Azithromycin 500 mg DAILY PO 04/05/24 10:00 04/07/24 10:09 500 MG Diagnostic Test (Pha) 1 strip IQ4HR 04/04/24 20:00 04/07/24 12:08 1 STRIP Insulin Human Regular IQ4HR SC 04/04/24 20:00 04/07/24 12:08 8 UNITS Dextrose 50 ml UD PRN IV 04/04/24 17:15 Aspirin 81 mg DAILY PO 04/05/24 10:00 04/07/24 10:11 81 MG Clopidogrel Bisulfate 75 mg DAILY PO 04/05/24 10:00 04/07/24 10:10 75 MG Atorvastatin Calcium 80 mg HS PO 04/04/24 22:00 04/06/24 22:26 80 MG Metoprolol Tartrate 25 mg Q12HR PO 04/04/24 22:00 04/07/24 10:10 25 MG Acetaminophen 650 mg Q6HP PRN PO 04/04/24 17:15 04/05/24 11:21 650 MG Zolpidem Tartrate 5 mg QHSP PRN PO 04/04/24 17:15 Lorazepam 0.5 mg Q6HP PRN PO 04/04/24 17:15 04/06/24 22:31 0.5 MG Docusate Sodium 100 mg DAILY PO 04/05/24 10:00 04/07/24 10:11 100 MG Enoxaparin Sodium 100 mg Q12HR SC 04/04/24 22:00 04/07/24 10:11 100 MG Ondansetron HCl 4 mg Q4HP PRN IV 04/04/24 17:15 Lisinopril 10 mg DAILY PO 04/05/24 10:00 04/07/24 10:09 10 MG Gabapentin 800 mg TID PO 04/06/24 14:00 04/07/24 05:02 800 MG Pantoprazole Sodium 40 mg DAILY@0600 PO 04/07/24 06:00 04/07/24 05:03 40 MG objective GENERAL: Awake, alert, oriented. LUNGS: Decreased breath sounds. CARDIOVASCULAR: Heart sounds are good. ABDOMEN: Soft. laboratory and microbiology Laboratory Tests 04/05/24 04:30 Test 04/05/24 04:30 Range/Units Serum Glucose 161 H 74-106 mg/dL Problem List Acute respiratory failure with hypoxemia. Elevated troponin. Diabetes mellitus type 2 uncontrolled. Acute exacerbation of chronic obstructive pulmonary disease (COPD). Assessment/Plan Continued all current supportive medical care. Aspirin, Lipitor, Metoprolol, Plavix. IV antibiotics as ordered. DVT prophylactics. Diuretics with Lasix. Lisinopril. Additional plan as per the hospital course. Plan discussed with: Patient HUMBLE MCCAIN MD Apr 07, 2024 13:59
--- NOTE | 2024-04-07 20:01 | DVHPN2 ---
Progress Note - Dictate Date Seen: Apr 07, 2024 Medical Necessity Reason Pt with a Central, PICC or Fol: Yes The following are medically ne: Morel Catheter Reason for morel catheter: Strict I&O Subjective Patient seen and examined at bedside. Remains on supplemental oxygen Overnight events reviewed. vital signs Vital Sign Date Time Temp Pulse Resp B/P (MAP) Pulse Ox O2 Delivery O2 Flow Rate FiO2 04/07/24 13:00 97.6 64 18 139/52 (81) 91 97.6 04/07/24 11:04 Nasal Cannula 2.0 04/07/24 11:04 28 Total Intake and Output 04/06/24 04/06/24 04/07/24 15:00 23:00 07:00 Intake Total 50 ml 900 ml 300 ml Balance 50 ml 900 ml 300 ml objective Gen.: Patient lying in bed in no apparent distress. On supplemental oxygen. Head: Normocephalic, atraumatic. Eyes: EOMI/PERRLA. Ears: Normal hearing. Normal anatomy. Neck/trachea: Trachea midline, supple. Nose: Normal external anatomy. Mouth: Moist mucous membranes. Chest: Decreased air entry bilaterally. No wheezing or rhonchi. Cardiovascular: Positive S1, positive S2. Regular rate and rhythm. Abdomen: Positive bowel sounds in all 4 quadrants. Soft, non-tender, non- distended. : Deferred. Rectal: Deferred. Skin: Warm, dry. Intact. Extremities: 2+ radial pulses bilaterally. No lower extremity edema. Neuro: Awake, alert, oriented x3. No gross motor or sensory deficits. Cranial nerves II through XII intact. Gait not assessed. laboratory and microbiology Laboratory Tests 04/05/24 04:30 Test 04/05/24 04:30 Range/Units Serum Glucose 161 H 74-106 mg/dL Assessment/Plan Impression: Acute on chronic hypoxic respiratory failure 2/2 AE COPD Acute exacerbation of COPD Pulmonary edema DM type II with hyperglycemia Coronary artery disease Morbid obesity Left pleural effusion Atelectasis Events: Remains on supplemental oxygen, 2 LPM NC Taper O2 as tolerated Improved O2 requirements Continue bronchodilators Continue IV steroids - transition to PO steroids. Continue antibiotics Incentive spirometry Diurese w/ Lasix as tolerated Monitor renal function. Monitor electrolytes. Supplement as necessary. Monitor ins and outs. Therapeutic Lovenox GI prophylaxis w/ Protonix Labs and imaging reviewed. Rest of plan as noted below. Plan: Supplemental oxygen Titrate to keep O2 sats above 92%. F/u echocardiogram. Continue bronchodilators. Continue antibiotics IV steroids - transition to PO as tolerated. Incentive spirometry Diurese w/ Lasix BID Monitor renal function. Monitor electrolytes. Supplement as necessary. Monitor ins and outs. Accu-Cheks, ISS. Diet and lifestyle modifications for weight reduction Morbid obesity - complicates all care GI prophylaxis w/ Protonix DVT prophylaxis. Prognosis: Poor given patient's multiple co-morbidities. Rest of plan per hospitalist and other consultants. Thank you Dr. Chad Kebede MD, for allowing me to participate in this patient's care. Further recommendations will depend on the patient's clinical course. Please do not hesitate to contact me if you have any questions or concerns. This medical document was created using an electronic medical record system with [employer] dictation system. Although these documentations are being carefully reviewed, there may still be some phonetic and typographical changes. The errors are purely typographical, due to imperfection on the software program, and do not reflect any compromise in the patient's medical care. Plan discussed with: Patient, Other (MICHELLE Banks) MARYANNE ELLIOTT MD Apr 07, 2024 20:01
== END 2024-04-07 16:00 | disposition home or self-care (01) | DRG 177 ==
LOC: ER 12:39 → EDBD 12:39 → TELE 17:10 → TELE-EAST 04-06 05:28
PROVIDERS: ADMIT Hospitalist; ATTEND Family Medicine
PROC: 5A09357 Assistance with Respiratory Ventilation, Less than 24 Consecutive Hours, Continuous Positive Airway Pressure (ICD-10-PCS; principal; 2024-04-04)
DX: J15.69 Pneumonia due to other Gram-negative bacteria (principal); J96.21 Acute and chronic respiratory failure with hypoxia; J44.1 Chronic obstructive pulmonary disease with (acute) exacerbation; E44.0 Moderate protein-calorie malnutrition; J44.0 Chronic obstructive pulmonary disease with (acute) lower respiratory infection; J15.9 Unspecified bacterial pneumonia; E11.65 Type 2 diabetes mellitus with hyperglycemia; Z20.822 Contact with and (suspected) exposure to COVID-19; I11.0 Hypertensive heart disease with heart failure; E66.01 Morbid (severe) obesity due to excess calories; I25.10 Atherosclerotic heart disease of native coronary artery without angina pectoris; I50.9 Heart failure, unspecified; E78.00 Pure hypercholesterolemia, unspecified; I25.2 Old myocardial infarction; Z95.5 Presence of coronary angioplasty implant and graft; Z68.38 Body mass index [BMI] 38.0-38.9, adult; Z79.899 Other long term (current) drug therapy
CPT/HCPCS: 36415; 36600; 71045; 80048; 80061; 81001; 82805; 82962; 83605; 83880; 84484; 85025; 85379; 87040; 87426; 87804; 93005; 93306; 94640; 94660; 99291; G0378; J0131; J1815

== ENCOUNTER 2024-05-26 20:05 | Inpatient (IN) | payer OTHER, MEDICAID ==
[~2024-05-26] VITALS: Ht 154.9 cm; Wt 105.0 kg
[~2024-05-26 20:05] MED LIST: ALBU108A5 IN; ATOR80TA PO; BENA-36 PO; BENA10TA16 GT; CLOP75TA70 PO; FAMO-12 PO; FLUT1INH6 IN; FURO20TA3 PO; FURO40TA4 PO; GABA800T97 PO; GLIP5TAB21 PO; LEVO500T91 PO; MET25T PO; METF-370 PO; METH4PAK PO; MONT-8 PO; PANT40T PO; PANT40TA2 PO
[2024-05-26 20:38] VITALS: PULSE 85; RESP 25; O2SAT 99
[2024-05-26] MEDS: DexAMETHasone SOD PHOS 10MG/1ML VIAL INJ IV ONE (20:39)
[2024-05-26] MEDS: ALBUTEROL SULF 2.5 MG/0.5ML(0.5%) NEB SOLN NEB ONE (20:43)
[2024-05-26] MEDS: IPRATROPIUM BROM 0.5 MG/2.5ML INH SOL NEB ONE (20:43)
--- NOTE | 2024-05-26 20:43 | DVH ---
CHEST RADIOGRAPH Indication: cp Technique: Single frontal view of the chest was obtained Comparison: XY CHEST PORTABLE on DOS: 04/04/24 FINDINGS: Lines and Tubes: None Lungs: Ill-defined increased tissue densities noted over both lung bases. This may be secondary to ov erlying breast tissue or pulmonary airspace disease consider lateral chest film for further evaluatio n. Pleura: No effusion. No pneumothorax. Cardiomediastinal contours: Cardiac size upper limits of normal Bones: No acute osseous abnormality. IMPRESSION: 1. Cardiomegaly 2. Increased pulmonary densities over both lower lung parr. May be secondary to patient's soft tis salma densities or pulmonary airspace disease. Recommend lateral chest film for further evaluation if t his is of clinical concern.
[2024-05-26 20:51] LABS: Base Excess 0.4 mmol/L (-2.0-3.0)
--- NOTE | 2024-05-26 21:04 | ED.PDOC ---
History of Present Illness HPI Comments 63 y/o F is BIBA for c/o flu-like symptoms and shortness of breath, today. Patient endorses on shortness of breath symptom worsening, this evening, following initial onset alongside flu-like symptoms, yesterday, and having no relief or improvement with 4x at-home nebulizer breathing treatments use or increasing her home O2 from baseline 2LPM to 4LPM. She comments on flu-symptoms including headache, lightheadedness, fever, and non-productive cough w/secondary associated chest-wall pain in addition to her daughter being sick with similar symptoms at home, currently. Per EMS report, patient has a history of CAD, CHF, COPD w/2LPM home O2 use, DM type II w/neuropathy, and HTN and was noted to have been found with a SpO2 of 86% on scene and was given DuoNeb breathing treatment en route, improving to a value of 98% upon arrival to ED. At time of assessment, patient reports no additional relevant or pertinent history, such as recent travel, aside from c/o right-leg swelling, that she is, currently, on a water- pill for, since March 2024. Patient denies having any nausea, vomiting, abdominal pain, urinary symptoms, palpitations, or other associated symptoms or modifiers at this time. Chief Complaint: Shortness of Breath Time Seen by MD: 20:05 Primary Care Provider: UNKNOWN Reviewed Notes: Nurses Notes, Labor Standards Director Notes, Medications, Allergies Allergies: Coded Allergies: NO KNOWN ALLERGIES (Unverified , 04/04/24) Home Meds Active Scripts Methylprednisolone (Medrol Dosepak) 4 Mg [place], 4 MG PO UD, #21 TAB UAD Prov:HARMONY MEZA MD 04/07/24 Levofloxacin Hemihydrate (LEVAQUIN 500 MG) 500 Mg Tab, 1 TAB PO DAILY, #10 TAB Prov:HARMONY MEZA MD 04/07/24 Reported Medications Benazepril Hcl (LOTENSIN TABLET) 10 Mg Tb, 10 MG GT, TAB 04/06/24 Furosemide (Furosemide) 40 Mg Tab, 1 TAB PO DAILY, #30 TAB 5 Refills 04/06/24 Metformin Hydrochloride (Metformin Hcl) 500 Mg Tab, 1 TAB PO BID, #60 TAB 3 Refills 04/06/24 Fluticasone Furoate-Vilanterol (Breo Ellipta 200-25 Mcg/INH) 1 Inh Inh, 1 INH IN DAILY, INHALER 04/05/24 Metoprolol Tartrate (Lopressor) 25 Mg Tb, 25 MG PO DAILY, TAB 04/05/24 Gabapentin (Gabapentin) 800 Mg Tab, 800 MG PO BID, TAB 04/05/24 Montelukast Sodium (MONTELUKAST SODIUM) 10 Mg Tab, 10 MG PO DAILY, TAB 04/05/24 Clopidogrel Bisulfate (CLOPIDOGREL) 75 Mg Tab, 75 MG PO DAILY, MG 04/05/24 Pantoprazole Sodium Sesquihydr (Pantoprazole Sodium) 40 Mg Tab, 40 MG PO DAILY, TAB 04/05/24 Glipizide (Glipizide) 5 Mg Tab, 5 MG PO BID, MG 04/05/24 Information Source: Patient, Emergency Med Personnel Mode of Arrival: EMS Severity: Moderate Timing: Hours Duration: Since onset Prehospital treatment: 12 Lead EKG, Breathing Tx, Employee Communications Intern Review of Systems: REVIEW OF SYSTEMS: fever, no chills, or fatigue HEENT: No sore throat, no earache, no congestion, no neck pain. Cardiac: lightheadedness, No chest pain. No palpitations. Lungs: shortness of breath, nonproductive cough. GI: No nausea, no vomiting, no diarrhea, no constipation, no abdominal pain : No dysuria, frequency, or urgency. No hematuria. Musculoskeletal: chest-wall pain secondary to cough, No joint pain , no joint swelling, no extremity edema. Skin: No rash, no itching. Neuro: headache, no dizziness, no weakness Vital Signs Vital Signs Date Time Temp Pulse Resp B/P (MAP) Pulse Ox O2 Delivery O2 Flow Rate FiO2 05/26/24 20:43 24 98 Nasal Cannula* 3 32 05/26/24 20:38 98.0 85 145/46 (79) 98.0 Physical Exam General: Awake, alert and oriented. No acute distress. Skin: Skin in warm, dry and intact. Appropriate color for ethnicity. Nailbeds pink with no cyanosis. HEENT: The head is normocephalic and atraumatic. Conjunctivae are clear without exudates or hemorrhage. Sclera is non-icteric. EOM are intact. No signs of nystagmus. Eyelids are normal in appearance without swelling or lesions. Oral mucosa is pink and moist Neck: The neck is supple with normal range of motion. No JVD. Cardiac: Heart rate and rhythm are normal. No murmurs, gallops, or rubs are auscultated. Respiratory: Diminished breathe sounds, bilaterally; labored breathing; No signs of respiratory distress; Lung sounds are clear in all lobes bilaterally without rales, rhonchi, or wheezes. Abdominal: Abdomen is soft, non-tender without distention. Bowel sounds are present and normoactive in all four quadrants. Extremities: Upper and lower extremities are atraumatic in appearance without deformity or edema. Neurological: The patient is awake, alert and oriented to person, place, and time with normal speech. Speech is clear. There is no facial asymmetry. Psychiatric: Appropriate mood and affect. Good judgement and insight. No visual or auditory hallucinations. Past Medical History PAST MEDICAL HISTORY: CAD, CHF, COPD (w/2LPM home O2 use ), DM (type II w/neuropathy), HTN Surgical History: Denies all surgeries REGISTERED RESPIRATORY THERAPIST History: Unknown Family History Family History: Unknown Social History Smoker: Non-Smoker Alcohol: Denies ETOH Use Drugs: Denies Drug Use Lives In: Home Was a procedure done? Was a procedure done?: No Differential Dx Considerations may include: [place], PE, PNA, COPD exacerbation, CHF exacerbation, pleural effusions, URI, viral syndrome, covid19, bronchitis X-Ray, Labs, Meds, VS Vital Signs Date Time Temp Pulse Resp B/P (MAP) Pulse Ox O2 Delivery O2 Flow Rate FiO2 05/26/24 20:43 24 98 Nasal Cannula* 3 32 05/26/24 20:38 98.0 85 25 145/46 (79) 99 98.0 05/26/24 20:38 85 25 99 Simple Mask* 8 60 05/26/24 20:26 99.3 103 20 132/93 (106) 99 05/26/24 20:10 83 Lab Test 05/26/24 23:19 05/26/24 22:50 05/26/24 21:15 05/26/24 20:50 Range/Units Urine Color Light-yellow Yellow Urine Clarity Clear Clear Urine pH 5.5 5.0-9.0 Urine Specific Leroy 1.016 1.001-1.035 Urine Protein Negative Negative Urine Ketones Negative Negative Urine Blood Negative Negative /uL Urine Nitrite Negative Negative Urine Bilirubin Negative Negative Urine Urobilinogen Normal Negative mg/dL Urine Leukocyte Esterase Negative Negative /uL Urine RBC <1 0 - 4 /hpf Urine WBC 1 0 - 5 /hpf Urine Squamous Epithelial Cells Few <5 /hpf Urine Bacteria None seen None Seen /hpf Urine Glucose Normal Normal mg/dL Troponin I High Sensitivity 43 *H 39 *H </=34 ng/L Influenza Type A Antigen Negative Negative Influenza Type B Antigen Negative Negative SARS-CoV-2 Antigen (Rapid) Negative NEGATIVE White Blood Count 5.2 4.4-10.8 10^3/uL Red Blood Count 3.75 L 4.0-5.20 10^6/uL Hemoglobin 11.7 L 12.2-16.2 g/dL Hematocrit 35.4 L 36.0-46.0 % Mean Corpuscular Volume 94.4 80.0-100.0 fL Mean Corpuscular Hemoglobin 31.3 28.0-32.0 pg Mean Corpuscular Hemoglobin Concent 33.2 32.0-36.0 g/dL Red Cell Distribution Width 15.6 H 11.8-14.3 % Platelet Count 140 140-450 10^3/uL Mean Platelet Volume 10.1 6.9-10.8 fL Neutrophils (%) (Auto) 77.5 37.0-80.0 % Lymphocytes (%) (Auto) 13.3 10.0-50.0 % Monocytes (%) (Auto) 6.0 0.0-12.0 % Eosinophils (%) (Auto) 1.7 0.0-7.0 % Basophils (%) (Auto) 1.5 0.0-2.0 % Neutrophils # (Auto) 4.0 1.6-8.6 10 ^3/uL Lymphocytes # (Auto) 0.7 0.4-5.4 10 ^3/uL Monocytes # (Auto) 0.3 0-1.3 10 ^3/uL Eosinophils # (Auto) 0.1 0-0.8 10 ^3/uL Basophils # (Auto) 0.1 0-0.2 10 ^3/uL Nucleated Red Blood Cells 0.8 % D-Dimer, Quantitative 1.28 H 0.0-0.49 mg/L FEU Sodium Level 142 136-145 mmol/L Potassium Level 3.9 3.5-5.1 mmol/L Chloride Level 106 98-107 mmol/L Carbon Dioxide Level 28 20-31 mmol/L Anion Gap 8 5-15 Blood Urea Nitrogen 15 9-23 mg/dL Creatinine 1.05 H 0.550-1.02 mg/dL Glomerular Filtration Rate Calc 59 >90 mL/min BUN/Creatinine Ratio 14.3 10.0-20.0 Serum Glucose 114 H 74-106 mg/dL Calcium Level 9.5 8.7-10.4 mg/dL Total Bilirubin 0.7 0.2-1.0 mg/dL Aspartate Amino Transferase (AST) 25 13-40 U/L Alanine Aminotransferase (ALT) 12 7-40 U/L Alkaline Phosphatase 86 46-116 U/L B-Type Natriuretic Peptide 393.97 0-100 pg/mL Total Protein 6.2 5.7-8.2 g/dL Albumin 3.9 3.2-4.8 g/dL Test 05/26/24 20:40 Range/Units Blood Gas Specimen Type Arterial Blood Gas Sample Site Right radial Blood Gas Patient Temperature 37.0 Arterial Blood Date Drawn [id number] Arterial Blood pH 7.440 7.350-7.450 Arterial Blood Partial Pressure CO2 36.5 32.0-45.0 mmHg Arterial Blood Partial Pressure O2 106.4 83.0-108.0 mmHg Arterial Blood HCO3 24.2 21.0-28.0 mmol/L Arterial Blood Oxygen Saturation 98.1 H 94.0-98.0 % Arterial Blood Base Excess 0.4 -2.0-3.0 mmol/L Arterial Blood Oxyhemoglobin 96.0 94.0-98.0 % Arterial Blood Carboxyhemoglobin 1.3 0.5-1.5 % Arterial Blood Methemoglobin 0.8 0.0-1.5 % Raciel Test Yes Blood Gas Total Hemoglobin 12.70 12.0-16.0 g/dL Blood Gas Modality Nasal cannula FiO2 % 36.0 Current Medications Medications (Trade) Dose Ordered Sig/Jeanne Route Start Time Stop Time Status Last Admin Albuterol (Ventolin Medneb) 2.5 mg ONCE ONCE NEB 05/26/24 20:30 05/26/24 20:31 DC 05/26/24 20:43 Ipratropium Brixey (Atrovent Medneb) 0.5 mg ONCE ONCE NEB 05/26/24 20:30 05/26/24 20:31 DC 05/26/24 20:43 Dexamethasone Sodium Phosphate (Decadron Injection) 10 mg ONCE ONCE IV 05/26/24 20:30 05/26/24 20:31 DC 05/26/24 20:39 Ibuprofen (Motrin Tablet) 600 mg ONCE ONCE PO 05/26/24 21:30 05/26/24 21:31 DC 05/26/24 21:37 [place] [id number] Ph: [phone] DIAGNOSTIC IMAGING Diagnostic Imaging Report : [id number] Signed PATIENT: KESHIA CASTILLO ACCT: [id number] UNIT: [id number] : 1960 LOC: ER ROOM / BED: / AGE / SEX: 63 / F ADM STATUS: REG ER SERVICE 22 ORDERING PHYSICIAN: FERCHO FRIEND MD PROCEDURE(s): CXR1 - CHEST XRAY 1 VIEW REASON: cp ORDER NUMBER(s): [id number], ACCESSION NUMBER(s): [id number] CHEST RADIOGRAPH Indication: cp Technique: Single frontal view of the chest was obtained Comparison: XY CHEST PORTABLE on DOS: 04/04/24 FINDINGS: Lines and Tubes: None Lungs: Ill-defined increased tissue densities noted over both lung bases. This may be secondary to overlying breast tissue or pulmonary airspace disease consider lateral chest film for further evaluation. Pleura: No effusion. No pneumothorax. Cardiomediastinal contours: Cardiac size upper limits of normal Bones: No acute osseous abnormality. IMPRESSION: 1. Cardiomegaly 2. Increased pulmonary densities over both lower lung parr. May be secondary to patient's soft tissue densities or pulmonary airspace disease. Recommend lateral chest film for further evaluation if this is of clinical concern. ATED BY: ROSALEE JALLOH Jr., DO DICTATED DATE/TIME: 05/26/242040 SIGNED BY: ROSALEE JALLOH Jr., DO SIGNED DATE/TIME: 05/26/242040 CC: Time of 1ST Reevaluation: 20:35 Reevaluation 1ST: Unchanged Patient Education/Counseling: Diagnosis, Treatment Family Education/Counseling: No Family Present Departure 1 Departure Time of Disposition: 00:10 Impression: Primary Impression: Acute exacerbation of chronic obstructive pulmonary disease (COPD) Additional Impressions: Pneumonia Elevated troponin JES (acute kidney injury) Disposition: ADMITTED INPATIENT Condition: Stable Comments 63-year-old female who presented in the emergency department with shortness of breath. She also reported right lower extremity swelling. The ultrasounds negative for DVT, her D-dimer was positive. CT angiogram was negative for pulmonary embolism. There are findings suggestive of pneumonia on the chest imaging. Patient is started on antibiotics, steroids and respiratory treatments in the emergency department. She is hypoxic and requiring supplemental oxygen greater than her baseline use. Her troponin is mildly elevated and trending up wards however there are no findings of ischemia on her EKG. Possibly due to worsening renal function. Patient admitted for further treatment, evaluation and monitoring. Extensive evaluation was performed in attempt to identify or rule out: (See differential diagnosis section) The following tests were ordered, and results were reviewed by me: (See diagnostic results section) The following test were independently interpreted by me: EKG I reviewed and agreed with the following test results read by other providers: Chest x-ray I reviewed the following notes from the pt's past medical encounters: 03/2024 Additional information was gathered from interviewing the following independent historians: EMS, family at bedside Discussion of management or test interpretation with external physician/other qualified health occasional caregiver: N/A Addressed one or more chronic illnesses with severe exacerbation, progression, or side effects of treatment: COPD exacerbation with hypoxia and pneumonia Decision regarding hospitalization or escalation of hospital level of care: Risk and benefits of admission for further treatment of patient's condition was considered. Due to patient's current clinical condition, high risk of decline and poor outcome if discharged and need for further inpatient management and monitoring, patient will be admitted to the hospital. Drug therapy requiring intensive monitoring for toxicity: N/A Parenteral controlled substances: N/A Decision regarding elective major surgery with identified patient or procedure risk factors: N/A Decision regarding emergency major surgery: N/A Decision not to resuscitate or to de-escalate care because of poor prognosis: N /A Diagnosis or treatment significantly limited by social determinants of health: N/A Critical Care Note Critical Care Time?: No Stability Stability form required: No Heart Score Heart Score: Heart Score Response (Comments) Value History Moderate Suspicious 1 EKG Normal 0 Age >65 2 Risk Factors >3 or Hx ASHD 2 Troponin 1-2 x's Normal limit 1 Total 6 I personally scribed for FERCHO FRIEND MD ([email or web address]) on 05/26/24 at 21:04. Electronically submitted by Wayne Johnson ([email or web address]). FERCHO FRIEND MD May 26, 2024 21:04
[2024-05-26 21:14] LABS: Basophils # (auto) 0.1 10 ^3/uL (0-0.2); Basophils % (auto) 1.5 % (0.0-2.0); Eosinophils # (auto) 0.1 10 ^3/uL (0-0.8); Eosinophils % (auto) 1.7 % (0.0-7.0); Hematocrit 35.4 % (36.0-46.0); Hemoglobin 11.7 g/dL (12.2-16.2); Lymphocytes # (auto) 0.7 10 ^3/uL (0.4-5.4); Lymphocytes % (auto) 13.3 % (10.0-50.0); Mean Corpuscular Hemoglobin 31.3 pg (28.0-32.0); Mean Corpuscular Hgb Conc. 33.2 g/dL (32.0-36.0); Mean Corpuscular Volume 94.4 fL (80.0-100.0); Monocytes # (auto) 0.3 10 ^3/uL (0-1.3); Neutrophils % (auto) 77.5 % (37.0-80.0); Nucleated Red Blood Cells % 0.8 %; Platelet Count (auto) 140 10^3/uL (140-450); Red Blood Cells 3.75 10^6/uL (4.0-5.20); Red Cell Distribution Width 15.6 % (11.8-14.3); White Blood Cell 5.2 10^3/uL (4.4-10.8)
[2024-05-26 21:24] LABS: Alanine Aminotransferase 12 U/L (7-40); Albumin 3.9 g/dL (3.2-4.8); Alkaline Phosphatase 86 U/L (46-116); Anion Gap 8 (5-15); Aspartate Aminotransferase 25 U/L (13-40); BUN/Creatinine Ratio 14.3 (10.0-20.0); Blood Urea Nitrogen 15 mg/dL (9-23); Calcium 9.5 mg/dL (8.7-10.4); Carbon Dioxide 28 mmol/L (20-31); Chloride 106 mmol/L (98-107); Potassium 3.9 mmol/L (3.5-5.1); Sodium 142 mmol/L (136-145)
[2024-05-26 21:25] LABS: Bilirubin, Total 0.7 mg/dL (0.2-1.0); Total Protein 6.2 g/dL (5.7-8.2)
[2024-05-26 21:26] LABS: Glucose 114 mg/dL (74-106)
[2024-05-26] MEDS: IBUPROFEN 600 MG TAB PO ONE (21:37)
--- NOTE | 2024-05-26 21:39 | DVH ---
Procedure: US RT Lower DVT Study Date and Requested Time: 05/26/2024 09:20 PM History: EDEMA Comparison: None Technique: Multiple high resolution mandel-scale images with and without compression obtained of the ri t lower extremity veins, including the common femoral vein, deep femoral vein, proximal mid and dis lalo superficial femoral vein, and popliteal vein. Additional limited images of the greater saphenous vein also obtained. Augmentation performed as indicated. Color and spectral doppler flow images obtai holly as indicated. Findings: No visible intraluminal venous thrombus. No evidence of incompressibility or abnormal color or spectr al Doppler flow visualized in the right lower extremity veins including, the common femoral vein, jhony p femoral vein, proximal mid and distal superficial femoral vein, and popliteal vein. Greater sapheno us vein grossly unremarkable. 3.1 x 1.1 x 1.4 cm popliteal fossa cyst is noted. Impression: No sonographic evidence of right lower extremity deep venous thrombosis.
[2024-05-26 22:05] LABS: COVID19 ANTIGEN SOFIA FIA NEGATIVE (NEGATIVE)
[2024-05-26 22:07] LABS: Rapid Influenza A Negative (Negative); Rapid Influenza B Negative (Negative)
[2024-05-26] MEDS: IOHEXOL 350 MG/ML 100ML IJ ONE (23:09)
--- NOTE | 2024-05-26 23:46 | DVH ---
CTA Chest with intravenous contrast INDICATION: ELEVATED DDIMER COMPARISON: None TECHNIQUE: Multidetector spiral CTA of the chest was performed of the chest with intravenous contrast . PULMONARY ANGIOGRAPHY PROTOCOL was utilized using a bolus-tracking technique centered on the main p ulmonary artery. Axial, coronal and sagittal multiplanar and MIP reformats were performed. Radiation Dose : 1. Chest: CTDI volume is 29.2 mGy. Dose-length product is 2239 mGy*cm The dose indicators for CT are the volume Computed Tomography (CT) Dose Index (CTDIvol) and the Dose Length Product (DLP), and are measured in units of mGy and mGy-cm, respectively. These indicators are not patient dose, but values generated from the CT scanner acquisition factors. The report includes radiation exposure data for exposures received during this examination. Findings: Pulmonary artery: No pulmonary embolism Lower neck: Normal thyroid. Lungs: Nodular densities in the bilateral lower lobes ( right greater than left ), compatible with pn eumonia or aspiration. Heart/Vascular Structures: Normal heart size. No pericardial effusion. Lymph Nodes: Mediastinal lymphadenopathy, likely reactive Pleura: Trace bilateral pleural effusions. No pneumothorax Musculoskeletal: No acute osseous abnormality. Soft tissues: Normal. Upper abdomen: Cholelithiasis. IMPRESSION: 1. No pulmonary embolism. 2. Nodular densities in the bilateral lower lobes (right greater left ), compatible with pneumonia or aspiration. 3. Trace bilateral pleural effusions. 4. Mediastinal lymphadenopathy, likely reactive.
[2024-05-26 23:54] LABS: Urine Bacteria None Seen /hpf (None Seen)
[2024-05-27] VITALS (19 sets, daily range): BP systolic 144–152; BP diastolic 50–70; PULSE 69–135; RESP 18–30; TEMP 97.4–98.1; O2SAT 88–100
[2024-05-27 00:04] LABS: Urine Blood Negative /uL (Negative); Urine Clarity Clear (Clear); Urine Color Light-Yellow (Yellow); Urine Protein, UAD Negative (Negative); Urine Specific Gravity 1.016 (1.001-1.035); Urine Squamous Epithelial Cell FEW /hpf (<5); Urine Urobilinogen Normal (Negative); Urine WBC 1 /hpf (0 - 5); Urine pH 5.5 (5.0-9.0)
[2024-05-27] MEDS: cefTRIAXone 1GM/50ML D5W 50 ML IV ONE (00:30)
[2024-05-27] MEDS: SODIUM CHLORIDE 0.9% 1,000 ML IV ONE (00:38)
[2024-05-27] MEDS: AZITHROMYCIN 500MG/ 250ML 250 ML IV ONE (00:44)
[2024-05-27] MEDS: IPRATROPIUM BROM 0.5 MG/2.5ML INH SOL NEB ONE (01:06)
[2024-05-27] MEDS: ALBUTEROL SULF 2.5 MG/0.5ML(0.5%) NEB SOLN NEB ONE ×2 (01:06→11:45)
[2024-05-27] MEDS: MELATONIN 5 MG TAB PO ONE (01:06)
[2024-05-27] MEDS ORDERED: ONDANSETRON HCL 4 MG/2 ML VIAL IV PRN (04:15)
[2024-05-27] MEDS ORDERED: DEXTROSE (50%) 50ML SYRG IV PRN (04:15)
--- NOTE | 2024-05-27 04:15 | DVHHP2 ---
History of Present Illness Reason for Visit: Shortness for breath History of Present Illness 63-year-old male presents for evaluation of shortness for breath. Patient endorses a two day history of flu-like symptoms including cough, fever, headache and generalized body aches. Denies nausea or vomiting. No chest pain at the mo ment. Past Medical History COPD, diabetes mellitus, hypertension, CHF, CAD Past Surgical History Denies Family History Noncontributory Smoke: No ALCOHOL: none Drugs: None Lives: with Family Review of Systems Review of Systems Review of systems are currently negative otherwise addressed in HPI. Allergies: Coded Allergies: NO KNOWN ALLERGIES (Unverified , 04/04/24) Exam Vital Signs Vital Signs Date Time Temp Pulse Resp B/P (MAP) Pulse Ox O2 Delivery O2 Flow Rate FiO2 05/27/24 03:00 75 14 146/55 (85) 95 05/27/24 01:07 Nasal Cannula* 2 28 05/27/24 01:00 98.0 98.0 Exam Gen: 63-year-old female in mild distress Skin: Warm, dry, normal color and texture, no rash. HEENT: Normocephalic atraumatic, mucous membranes moist and pink. Neck: Cervical and supraclavicular nodes normal without enlargement, trachea is midline, thyroid gland is normal without masses. Pulmonary: Bilateral rhonchi Cardiac: Regular rate and rhythm. No murmur Abdomen: Soft, nontender, nondistended, bowel sounds present all 4 quadrants, no guarding, no rigidity, no organomegaly. Extremities: No cyanosis, clubbing, no edema Neuro: Cranial nerves II through XII grossly intact, normal affect and speech, no focal motor deficits. Labs/Xrays ORDERING PHYSICIAN: FERCHO FRIEND MD PROCEDURE(s): CTACH - CT ANGIO CHEST CONTRAST REASON: ELEVATED DDIMER ORDER NUMBER(s): [id number], ACCESSION NUMBER(s): [id number] CTA Chest with intravenous contrast INDICATION: ELEVATED DDIMER COMPARISON: None TECHNIQUE: Multidetector spiral CTA of the chest was performed of the chest with intravenous contrast. PULMONARY ANGIOGRAPHY PROTOCOL was utilized using a bolus- tracking technique centered on the main pulmonary artery. Axial, coronal and sagittal multiplanar and MIP reformats were performed. Radiation Dose : 1. Chest: CTDI volume is 29.2 mGy. Dose-length product is 2239 mGy*cm The dose indicators for CT are the volume Computed Tomography (CT) Dose Index (CTDIvol) and the Dose Length Product (DLP), and are measured in units of mGy and mGy-cm, respectively. These indicators are not patient dose, but values generated from the CT scanner acquisition factors. The report includes radiation exposure data for exposures received during this examination. Findings: Pulmonary artery: No pulmonary embolism Lower neck: Normal thyroid. Lungs: Nodular densities in the bilateral lower lobes ( right greater than left ), compatible with pneumonia or aspiration. Heart/Vascular Structures: Normal heart size. No pericardial effusion. Lymph Nodes: Mediastinal lymphadenopathy, likely reactive Pleura: Trace bilateral pleural effusions. No pneumothorax Musculoskeletal: No acute osseous abnormality. Soft tissues: Normal. Upper abdomen: Cholelithiasis. IMPRESSION: 1. No pulmonary embolism. 2. Nodular densities in the bilateral lower lobes (right greater left ), compatible with pneumonia or aspiration. 3. Trace bilateral pleural effusions. 4. Mediastinal lymphadenopathy, likely reactive. ATED BY: SHANKAR SMITH MD Labs Test 05/27/24 02:28 05/26/24 23:19 05/26/24 22:50 05/26/24 21:15 Range/Units POC Glucose 247 H 70-106 mg/dl Urine Color Light-yellow Yellow Urine Clarity Clear Clear Urine pH 5.5 5.0-9.0 Urine Specific Jay Em 1.016 1.001-1.035 Urine Protein Negative Negative Urine Ketones Negative Negative Urine Blood Negative Negative /uL Urine Nitrite Negative Negative Urine Bilirubin Negative Negative Urine Urobilinogen Normal Negative mg/dL Urine Leukocyte Esterase Negative Negative /uL Urine RBC <1 0 - 4 /hpf Urine WBC 1 0 - 5 /hpf Urine Squamous Epithelial Cells Few <5 /hpf Urine Bacteria None seen None Seen /hpf Urine Glucose Normal Normal mg/dL Troponin I High Sensitivity 43 *H </=34 ng/L Influenza Type A Antigen Negative Negative Influenza Type B Antigen Negative Negative SARS-CoV-2 Antigen (Rapid) Negative NEGATIVE Test 05/26/24 20:50 05/26/24 20:40 Range/Units White Blood Count 5.2 4.4-10.8 10^3/uL Red Blood Count 3.75 L 4.0-5.20 10^6/uL Hemoglobin 11.7 L 12.2-16.2 g/dL Hematocrit 35.4 L 36.0-46.0 % Mean Corpuscular Volume 94.4 80.0-100.0 fL Mean Corpuscular Hemoglobin 31.3 28.0-32.0 pg Mean Corpuscular Hemoglobin Concent 33.2 32.0-36.0 g/dL Red Cell Distribution Width 15.6 H 11.8-14.3 % Platelet Count 140 140-450 10^3/uL Mean Platelet Volume 10.1 6.9-10.8 fL Neutrophils (%) (Auto) 77.5 37.0-80.0 % Lymphocytes (%) (Auto) 13.3 10.0-50.0 % Monocytes (%) (Auto) 6.0 0.0-12.0 % Eosinophils (%) (Auto) 1.7 0.0-7.0 % Basophils (%) (Auto) 1.5 0.0-2.0 % Neutrophils # (Auto) 4.0 1.6-8.6 10 ^3/uL Lymphocytes # (Auto) 0.7 0.4-5.4 10 ^3/uL Monocytes # (Auto) 0.3 0-1.3 10 ^3/uL Eosinophils # (Auto) 0.1 0-0.8 10 ^3/uL Basophils # (Auto) 0.1 0-0.2 10 ^3/uL Nucleated Red Blood Cells 0.8 % D-Dimer, Quantitative 1.28 H 0.0-0.49 mg/L FEU Sodium Level 142 136-145 mmol/L Potassium Level 3.9 3.5-5.1 mmol/L Chloride Level 106 98-107 mmol/L Carbon Dioxide Level 28 20-31 mmol/L Anion Gap 8 5-15 Blood Urea Nitrogen 15 9-23 mg/dL Creatinine 1.05 H 0.550-1.02 mg/dL Glomerular Filtration Rate Calc 59 >90 mL/min BUN/Creatinine Ratio 14.3 10.0-20.0 Serum Glucose 114 H 74-106 mg/dL Calcium Level 9.5 8.7-10.4 mg/dL Total Bilirubin 0.7 0.2-1.0 mg/dL Aspartate Amino Transferase (AST) 25 13-40 U/L Alanine Aminotransferase (ALT) 12 7-40 U/L Alkaline Phosphatase 86 46-116 U/L B-Type Natriuretic Peptide 393.97 0-100 pg/mL Total Protein 6.2 5.7-8.2 g/dL Albumin 3.9 3.2-4.8 g/dL Blood Gas Specimen Type Arterial Blood Gas Sample Site Right radial Blood Gas Patient Temperature 37.0 Arterial Blood Date Drawn [id number] Arterial Blood pH 7.440 7.350-7.450 Arterial Blood Partial Pressure CO2 36.5 32.0-45.0 mmHg Arterial Blood Partial Pressure O2 106.4 83.0-108.0 mmHg Arterial Blood HCO3 24.2 21.0-28.0 mmol/L Arterial Blood Oxygen Saturation 98.1 H 94.0-98.0 % Arterial Blood Base Excess 0.4 -2.0-3.0 mmol/L Arterial Blood Oxyhemoglobin 96.0 94.0-98.0 % Arterial Blood Carboxyhemoglobin 1.3 0.5-1.5 % Arterial Blood Methemoglobin 0.8 0.0-1.5 % Raciel Test Yes Blood Gas Total Hemoglobin 12.70 12.0-16.0 g/dL Blood Gas Modality Nasal cannula FiO2 % 36.0 Assessment/Plan Assessment/Plan Assessment Community-acquired pneumonia COPD exacerbation Acute hypoxic respiratory distress Diabetes mellitus Hypertension Plan Admit the patient to telemetry to the hospitalist Onel brennan Rocephin/azithromycin Resume home medications Continue treatment per orders. Plan discussed with: Patient My Orders Orders - MECHELLE LOPEZ Procedure Category Date Status Time Ceftriaxone Ivpb PHA 05/27/24 Verified Rocephin 09:00 Azithromycin 500mg/ PHA 05/27/24 Verified 250ml (Zithromax 50 10:00 Metoprolol Xl PHA 05/27/24 Verified Succinate (Toprol Xl) 10:00 Atorvastatin (Lipitor) PHA 05/27/24 Verified 22:00 Clopidogrel Bisulfate PHA 05/27/24 Verified (Plavix) 10:00 Furosemide Tablet PHA 05/27/24 Verified (Lasix Tablet) 10:00 Albuterol Medneb PHA 05/27/24 Verified (Ventolin Medneb) 04:15 Date of Service: May 27, 2024 Billing Provider: MECHELLE LOPEZ Common Visit Codes: [id number] INP/OBS CARE (HIGH) MECHELLE LOPEZ AGACNP May 27, 2024 04:15
--- NOTE | 2024-05-27 04:28 | ECG ---
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
[2024-05-27] MEDS: ALBUTEROL SULF 2.5 MG/0.5ML(0.5%) NEB SOLN NEB PRN (06:26)
[2024-05-27] MEDS: ACCU-CHEK COMFORT CURVE STRIP VI SCH (06:38)
[2024-05-27] MEDS: InsuLIN REG 1unit/0.01ml Soln (100units/ml) SC SCH (06:58)
[2024-05-27] MEDS: METOPROLOL SUCCINATE XL 50 MG TAB PO SCH (10:00)
[2024-05-27] MEDS: CLOPIDOGREL BISULFATE 75 MG TAB PO SCH (10:00)
[2024-05-27] MEDS: GABAPENTIN 400 MG CAP PO SCH (10:00)
[2024-05-27] MEDS ORDERED: ASPirin 81 mg TAB PO SCH (10:00)
[2024-05-27] MEDS: FUROSEMIDE 40 MG TAB PO SCH (10:00)
[2024-05-27] MEDS: IPRATROPIUM BROM 0.5 MG/2.5ML INH SOL ONE (11:33)
[2024-05-27] MEDS: ALBUTEROL SULF 2.5 MG/0.5ML(0.5%) NEB SOLN ONE ×2 (11:33→12:03)
[2024-05-27] MEDS ORDERED: FUROSEMIDE 40 MG/4 ML VIAL IV ONE (11:45)
[2024-05-27] MEDS: IPRATROPIUM BROM 0.5 MG/2.5ML INH SOL NEB SCH ×2 (12:03→18:32)
[2024-05-27] MEDS: ALBUTEROL SULF 2.5 MG/0.5ML(0.5%) NEB SOLN NEB SCH ×2 (12:03→18:32)
[2024-05-27 12:42] LABS: Base Excess -5.5 mmol/L (-2.0-3.0)
--- NOTE | 2024-05-27 12:52 | DVH ---
EXAM: XY CHEST XRAY 1 VIEW Indication: SOB Technique: Single frontal view of the chest was obtained Comparison: XY CHEST XRAY 1 VIEW on DOS: 05/26/24, XY CHEST PORTABLE on DOS: 04/04/24 FINDINGS: Lines and Tubes: None Lungs: Pulmonary vascular congestion. Pleura: No effusion. No pneumothorax. Cardiomediastinal contours: Cardiomegaly. Bones: No acute osseous abnormality. IMPRESSION: Cardiomegaly with pulmonary vascular congestion.
[2024-05-27] MEDS: methylPREDNISolone SOD SUCC 125 MG/2 ML VL IV ONE (13:24)
[2024-05-27] MEDS: ENOXAPARIN SOD 40 MG/0.4 ML SYRINGE SC SCH (13:25)
[2024-05-27] MEDS: FUROSEMIDE 40 MG/4 ML VIAL IV ONE (13:26)
[2024-05-27] MEDS: LORazepam 2MG/ML-1ML VIAL IV ONE (13:26)
[2024-05-27] MEDS: PIPERACILLIN-TAZOB 3.375GM 100 ML IV SCH (14:31)
--- NOTE | 2024-05-27 15:20 | DVHPNRES ---
Progress Note Date Seen: May 27, 2024 Resident Creating Document: VELMA BRADYASHUTOSH RESIDENT Medical Necessity Reason Pt with a Central, PICC or Fol: No Subjective Review of Systems Patient is a 63-year-old female with a past medical history of COPD on 2 L O2 at home, coronary artery disease with s/p PTCA and 4 JOE, type 2 diabetes mellitus, hypertension, heart failure with reduced ejection fraction came to the ED with a chief complaint of shortness of breath for the last 3 days. Patient reports that her grandson was sick with flu-like symptoms and about 3 days ago he started to have cough with expectoration yellowish brown in color no associated blurred with the associated fever and chills. Patient reports also chest pain which was only present on coughing and was pressure-like sensation she felt. Patient denied dysuria, nausea, vomiting, diarrhea. Past surgical history: PTCA with the 4 cardiac stents Social history: Patient lives at home denies smoking, alcohol, drug use Home medications: Clopidogrel 75 mg, Breo Ellipta inhaler, furosemide 40 mg p.o. daily, gabapentin 800 mg t.i.d., metoprolol tartrate 25 mg daily Review of systems At the time of examination in the morning patient was having increased work of breathing with a her SpO2 decreasing to less than 88% following which the patient was put on BiPAP. On BiPAP patient reported feeling better in terms of breathing. Denied chest pain, palpitations, nausea, vomiting, diarrhea, headache. Objective vital signs Vital Sign Date Time Temp Pulse Resp B/P (MAP) Pulse Ox O2 Delivery O2 Flow Rate FiO2 05/27/24 14:00 112 96 Facial BiPAP Mask 35 05/27/24 13:26 145/68 05/27/24 11:41 30 05/27/24 11:35 6 05/27/24 11:14 97.4 97.4 Total Intake and Output 05/26/24 05/26/24 05/27/24 15:00 23:00 07:00 Intake Total 1380 ml Balance 1380 ml medications Current Medications Medications Dose Ordered Sig/Jeanne Route Start Time Stop Time Status Last Admin Dose Admin Azithromycin 250 ml @ 125 mls/hr Q24H IV 05/28/24 01:00 Metoprolol Succinate 25 mg DAILY PO 05/27/24 10:00 Clopidogrel Bisulfate 75 mg DAILY PO 05/27/24 10:00 Furosemide 40 mg DAILY PO 05/27/24 10:00 Gabapentin 800 mg BID PO 05/27/24 10:00 Diagnostic Test (Pha) 1 strip ACHS 05/27/24 07:00 05/27/24 11:30 1 STRIP Insulin Human Regular ACHS SC 05/27/24 07:00 05/27/24 14:28 6 UNITS Dextrose 50 ml UD PRN IV 05/27/24 04:15 Ondansetron HCl 4 mg Q4HP PRN IV 05/27/24 04:15 Enoxaparin Sodium 40 mg DAILY SC 05/27/24 10:00 05/27/24 13:25 40 MG Acetaminophen 650 mg Q6HP PRN PO 05/27/24 04:15 Atorvastatin Calcium 40 mg HS PO 05/27/24 22:00 Albuterol 2.5 mg Q6HR NEB 05/27/24 12:00 05/27/24 12:03 2.5 MG Ipratropium [place] 0.5 mg Q6HR NEB 05/27/24 12:00 05/27/24 12:03 0.5 MG Piperacillin Sod/ Tazobactam Sod 100 ml @ 25 mls/hr Q8HR IV 05/27/24 14:00 05/27/24 14:31 25 MLS/HR Examination Physical Examination Constitutional: Patient is alert and oriented to time, place and person and was acute respiratory distress with increased work of breathing and accessory muscle use. Gen - no pallor, no icterus, no cyanosis, no clubbing, no LAD, no edema . Skin - Patients skin is warm and dry. HEENT - normocephalic, atraumatic, moist mucous membranes. Neck - full ROM, no LAD, no JVD. Pulmonary - B/L decreased breath sounds with bibasilar mild crackles, no wheezing, no stridor cardiovascular - normal S1,S2 heard. no murmurs heard. peripheral pulses normal radial 2+, pedal 2+. GI - soft abdomen without tenderness to palpation. no hepatospleenomegaly. Bowel sounds normoactive Neurological - Bilateral upper extremity strength 5/5, bilateral lower extremity strength 5/5, no facial droop, normal speech, no tremor, no sensory deficiets. laboratory and microbiology Laboratory Tests 05/26/24 20:50 Test 05/26/24 20:50 Range/Units Serum Glucose 114 H 74-106 mg/dL Problem List/Assessment/Plan Problem List/Assessment/Plan Acute on chronic hypoxic respiratory failure Acute exacerbation of COPD likely due to pneumonia Community-acquired pneumonia likely due to ?Viral ?Gram negative ?Atypical ? Acute exacerbation of heart failure with reduced ejection fraction PE ruled out - chest x-ray showed increased pulmonary densities over both lower lung parr which may be secondary to suspected pulmonary airspace disease, cardiomegaly - CT angio shows no pulmonary embolism, nodular density seen in the bilateral lower lobes compatible for pneumonia - BNP 394 - echo from March 2024 shows LVEF 30% - on BiPAP, IPAP of 17 and EPAP 5 with a FiO2 30% - goal SpO2 greater than 92% - IV antibiotics: Zosyn 3.375 g q.8 hour plus azithromycin 500 mg q.d. - furosemide 40 mg p.o. daily - continued on metoprolol succinate 25 mg daily - albuterol 2.5 mg and ipratropium 0.5 mg q.4 hour med neb - methylprednisolone 125 mg once given, started on prednisolone 40 mg p.o. daily - influenza and pneumococcal vaccine administered NSTEMI likely type 2 H/O CAD s/p PTCA with 4 cardiac stents - 12 lead ECG showed no evidence of acute ST segment/T-wave changes - troponins trended 39->43->34 - given aspirin and on Plavix - atorvastatin Uncontrolled Type 2 diabetes mellitus with hyperglycemia - HbA1c pending - patient was put on insulin Lantus 12 units and insulin lispro 4 units a.c. - goal blood glucose between 140-180 mg/dL PUD prophylaxis: Famotidine 20 mg IV daily DVT prophylaxis: Enoxaparin 40 mg sc q.d. Goals of the care discussed with the patient and the daughter for over 29 minutes. Full code Plan discussed with Plan discussed with: Patient, Daughter My Orders My Orders Orders - RANCHO BRADY Procedure Category Date Status Time Atorvastatin (Lipitor) PHA 05/27/24 In Process 22:00 Albuterol Medneb PHA 05/27/24 In Process (Ventolin Medneb) 12:00 Ipratropium Medneb PHA 05/27/24 In Process (Atrovent Medneb) 12:00 Code Status CODE 05/27/24 Transmitted 11:26 Piperacillin-Tazob PHA 05/27/24 In Process 3.375gm (Zosyn 3.375g 14:00 Date of Service: May 27, 2024 Billing Provider: SINGH SALMERON MD Common Visit Codes: [id number] CARE 30-74 MIN RANCHO BRADY RESIDENT May 27, 2024 15:20 SINGH SALMERON MD May 29, 2024 17:01
[2024-05-27] MEDS: INSULIN LISPRO (HUMAN) 100 UNITS/ML ML SC SCH (17:00)
[2024-05-27] MEDS: INFLUENZA TRIVALENT 2024-2025 0.5 ML INJ IM ONE (18:03)
[2024-05-27] MEDS: PNEUMOCOCCAL VACC POLYS 25 MCG/0.5 ML VIAL IM ONE (18:05)
[2024-05-27] MEDS: hydrOXYzine HCL 10 MG TAB PO PRN (18:25)
[2024-05-27] MEDS: ATORVASTATIN 20 MG TAB PO SCH (21:46)
[2024-05-27] MEDS: INSULIN LANTUS (GLARGINE) 1 /0.01ml (100units/ml) SC SCH (21:49)
[2024-05-27] MEDS ORDERED: ATORVASTATIN 20 MG TAB PO SCH (22:00)
[2024-05-27] MEDS: TEMAZEPAM 15 MG CAP PO ONE (23:43)
[2024-05-28] VITALS (19 sets, daily range): BP systolic 101–164; BP diastolic 51–70; PULSE 80–94; RESP 16–22; TEMP 97.8–98.9; O2SAT 91–97
[2024-05-28] MEDS ORDERED: cefTRIAXone 1GM/50ML D5W 50 ML IV SCH (01:00)
[2024-05-28] MEDS: AZITHROMYCIN 500MG/ 250ML 250 ML IV SCH (01:12)
[2024-05-28 07:27] LABS: Anion Gap 8 (5-15); Carbon Dioxide 25 mmol/L (20-31); Chloride 105 mmol/L (98-107); Potassium 3.8 mmol/L (3.5-5.1); Sodium 138 mmol/L (136-145)
[2024-05-28 07:29] LABS: Calcium 9.6 mg/dL (8.7-10.4)
[2024-05-28 07:33] LABS: BUN/Creatinine Ratio 18.4 (10.0-20.0); Blood Urea Nitrogen 19 mg/dL (9-23)
[2024-05-28 07:34] LABS: Glucose 237 mg/dL (74-106)
[2024-05-28 07:42] LABS: Basophils # (auto) 0 10 ^3/uL (0-0.2); Basophils % (auto) 0.2 % (0.0-2.0); Eosinophils # (auto) 0 10 ^3/uL (0-0.8); Hematocrit 34.9 % (36.0-46.0); Hemoglobin 11.5 g/dL (12.2-16.2); Lymphocytes # (auto) 0.4 10 ^3/uL (0.4-5.4); Lymphocytes % (auto) 7.1 % (10.0-50.0); Mean Corpuscular Hemoglobin 30.9 pg (28.0-32.0); Mean Corpuscular Hgb Conc. 32.9 g/dL (32.0-36.0); Mean Corpuscular Volume 93.8 fL (80.0-100.0); Monocytes # (auto) 0.2 10 ^3/uL (0-1.3); Monocytes % (auto) 4.3 % (0.0-12.0); Neutrophils # (auto) 5.1 10 ^3/uL (1.6-8.6); Neutrophils % (auto) 88.4 % (37.0-80.0); Nucleated Red Blood Cells % 0.1 %; Platelet Count (auto) 108 10^3/uL (140-450); Red Blood Cells 3.72 10^6/uL (4.0-5.20); Red Cell Distribution Width 15.2 % (11.8-14.3); White Blood Cell 5.8 10^3/uL (4.4-10.8)
[2024-05-28] MEDS: INSULIN LISPRO (HUMAN) 100 UNITS/ML ML SC SCH (08:15)
[2024-05-28] MEDS: PANTOPRAZOLE 40 MG TAB PO ONE (09:39)
[2024-05-28] MEDS: predniSONE 20 MG TAB PO SCH (09:40)
[2024-05-28] MEDS ORDERED: FAMOTIDINE (10MG/ML) 2ML VL IV SCH (10:00)
[2024-05-28] MEDS ORDERED: PANTOPRAZOLE 40 MG/10 ML VIAL INJ IV SCH (10:00)
[2024-05-28 11:23] LABS: Free T3 2.34 pg/mL (2.3-4.2); Free T4 (Free Thyroxine) 1.07 ng/dL (0.89-1.76)
[2024-05-28] MEDS: IBUPROFEN 400 MG TAB PO PRN (14:44)
--- NOTE | 2024-05-28 20:47 | DVHPNRES ---
Progress Note Date Seen: May 28, 2024 Resident Creating Document: JHPresleyJVELMA BledseoASHUTOSH RESIDENT Medical Necessity Reason Pt with a Central, PICC or Fol: No Subjective Review of Systems At the time of examination patient was breathing comfortably via nasal cannula with mild work of breathing with no acute distress Reports that her breathing is a lot better and is she is able to sleep. Denies chest pain, palpitations, nausea, vomiting, diarrhea, headache. Objective vital signs Vital Sign Date Time Temp Pulse Resp B/P (MAP) Pulse Ox O2 Delivery O2 Flow Rate FiO2 05/28/24 19:57 89 16 97 05/28/24 17:00 98.9 116/66 (83) 98.9 05/28/24 14:20 Nasal Cannula 3.0 05/28/24 14:20 32 Total Intake and Output 05/27/24 05/27/24 05/28/24 15:00 23:00 07:00 Intake Total 220 ml 0 ml 725 ml Output Total 200 ml 1050 ml Balance 220 ml -200 ml -325 ml medications Current Medications Medications Dose Ordered Sig/Jeanne Route Start Time Stop Time Status Last Admin Dose Admin Azithromycin 250 ml @ 125 mls/hr Q24H IV 05/28/24 01:00 05/28/24 01:12 125 MLS/HR Metoprolol Succinate 25 mg DAILY PO 05/27/24 10:00 Clopidogrel Bisulfate 75 mg DAILY PO 05/27/24 10:00 05/28/24 09:41 75 MG Furosemide 40 mg DAILY PO 05/27/24 10:00 Gabapentin 800 mg BID PO 05/27/24 10:00 05/28/24 09:40 800 MG Diagnostic Test (Pha) 1 strip ACHS 05/27/24 07:00 05/28/24 17:22 1 STRIP Dextrose 50 ml UD PRN IV 05/27/24 04:15 Ondansetron HCl 4 mg Q4HP PRN IV 05/27/24 04:15 Enoxaparin Sodium 40 mg DAILY SC 05/27/24 10:00 05/28/24 09:43 40 MG Acetaminophen 650 mg Q6HP PRN PO 05/27/24 04:15 Atorvastatin Calcium 40 mg HS PO 05/27/24 22:00 05/27/24 21:46 40 MG Piperacillin Sod/ Tazobactam Sod 100 ml @ 25 mls/hr Q8HR IV 05/27/24 14:00 05/28/24 14:44 25 MLS/HR Albuterol 2.5 mg Q4HR NEB 05/27/24 18:00 05/28/24 19:34 2.5 MG Ipratropium [place] 0.5 mg Q4HR NEB 05/27/24 18:00 05/28/24 19:34 0.5 MG Prednisone 40 mg DAILY PO 05/28/24 10:00 05/28/24 09:40 40 MG Hydroxyzine HCl 10 mg Q6HP PRN PO 05/27/24 16:15 05/28/24 19:50 10 MG Insulin Glargine 12 units HS SC 05/27/24 22:00 05/27/24 21:49 12 UNITS Insulin Human Lispro 5 units AC SC 05/28/24 08:15 05/28/24 17:22 5 UNITS Pantoprazole Sodium 40 mg DAILY@0600 PO 05/29/24 06:00 Ibuprofen 400 mg Q8HP PRN PO 05/28/24 11:30 05/28/24 14:44 400 MG Examination Constitutional: Patient is alert and oriented to time, place and person and was in no acute respiratory distress Gen - no pallor, no icterus, no cyanosis, no clubbing, no LAD, no edema . Skin - Patients skin is warm and dry. HEENT - normocephalic, atraumatic, moist mucous membranes. Neck - full ROM, no LAD, no JVD. Pulmonary - B/L breath sounds improved with bibasilar mild crackles, no wheezing, no stridor cardiovascular - normal S1,S2 heard. no murmurs heard. peripheral pulses normal radial 2+, pedal 2+. GI - soft abdomen without tenderness to palpation. no hepatospleenomegaly. Bowel sounds normoactive Neurological - Bilateral upper extremity strength 5/5, bilateral lower extremity strength 5/5, no facial droop, normal speech, no tremor, no sensory deficiets. laboratory and microbiology Laboratory Tests 05/28/24 06:00 Test 05/28/24 06:00 Range/Units Serum Glucose 237 H 74-106 mg/dL Problem List/Assessment/Plan Problem List/Assessment/Plan Acute on chronic hypoxic respiratory failure Acute exacerbation of COPD likely due to pneumonia Community-acquired pneumonia likely due to ?Viral ?Gram negative ?Atypical ? Acute exacerbation of heart failure with reduced ejection fraction PE ruled out - chest x-ray showed increased pulmonary densities over both lower lung parr which may be secondary to suspected pulmonary airspace disease, cardiomegaly - CT angio shows no pulmonary embolism, nodular density seen in the bilateral lower lobes compatible for pneumonia - BNP 394 - echo from March 2024 shows LVEF 30% - on BiPAP, IPAP of 17 and EPAP 5 with a FiO2 30% - patient transitioned from BiPAP to nasal cannula on 05/28/2024 - goal SpO2 greater than 92% - IV antibiotics: Zosyn 3.375 g q.8 hour plus azithromycin 500 mg q.d. - furosemide 40 mg p.o. daily - continued on metoprolol succinate 25 mg daily - albuterol 2.5 mg and ipratropium 0.5 mg q.4 hour med neb - methylprednisolone 125 mg once given, started on prednisolone 40 mg p.o. daily - influenza and pneumococcal vaccine administered NSTEMI likely type 2 H/O CAD s/p PTCA with 4 cardiac stents - 12 lead ECG showed no evidence of acute ST segment/T-wave changes - troponins trended 39->43->34 - given aspirin and on Plavix - atorvastatin Uncontrolled Type 2 diabetes mellitus with hyperglycemia - HbA1c pending - patient was put on insulin Lantus 12 units and insulin lispro 4 units a.c. - goal blood glucose between 140-180 mg/dL PUD prophylaxis: Famotidine 20 mg IV daily DVT prophylaxis: Enoxaparin 40 mg sc q.d. Goals of the care discussed with the patient and the daughter for over 29 minutes. Full code Plan discussed with Plan discussed with: Patient My Orders My Orders Orders - RANCHO BRADY Procedure Category Date Status Time Insulin Lispro PHA 05/28/24 In Process (Human) (Humalog) 08:15 Ibuprofen Tablet PHA 05/28/24 In Process (Motrin Tablet) 11:30 Date of Service: May 28, 2024 Billing Provider: SINGH SALMERON MD Common Visit Codes: [id number] INP/OBS CARE(HIGH) RANCHO BRADY RESIDENT May 28, 2024 20:47 SINGH SALMERON MD May 29, 2024 17:02
[2024-05-29] VITALS (83 sets, daily range): BP systolic 73–249; BP diastolic 43–172; PULSE 72–125; RESP 10–27; TEMP 96.6–100.2; O2SAT 93–100
[2024-05-29] MEDS: LORazepam 2MG/ML-1ML VIAL IV ONE (04:45)
[2024-05-29] MEDS: SUCCINYLCHOLINE CHLORIDE 20 MG/ML 10ML VIAL IV ONE ×2 (05:05→05:15)
[2024-05-29] MEDS: ETOMIDATE (2MG/ML) 20ML VIAL IV ONE ×2 (05:05→05:15)
--- NOTE | 2024-05-29 05:16 | ECG ---
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
[2024-05-29] MEDS: fentaNYL Drip 2500mCg/250mlNS 250 ML IV ONE (05:23)
[2024-05-29] MEDS: MIDAZOLAM DRIP 50 mg/50mL 50 ML IV ONE (05:23)
[2024-05-29] MEDS: MIDAZOLAM DRIP 50 mg/50mL 50 ML IV SCH (05:25)
[2024-05-29] MEDS: PROPOFOL 100 ML IV SCH (05:30)
[2024-05-29] MEDS: fentaNYL Drip 2500mCg/250mlNS 250 ML IV SCH (05:30)
[2024-05-29] MEDS: PROPOFOL 100 ML IV ONE (05:34)
--- NOTE | 2024-05-29 05:53 | DVHNC2 ---
Intubation Indication: Respiratory Insufficiency Prep: Preoxygenation Pretreated with: Analgesia Medicated with: Succinylcholine, Other Intubation Approach: Orotracheal Intubation size: cm (23) Informed consent obtained: Yes Risks/benefits/alt described: Yes Notes A time out was performed. My hands were washed immediately prior to the procedure. I wore a surgical cap, mask with protective eyewear, gown and gloves throughout the procedure. The patient was placed on a automatic nailing machine feeder including continuous pulse oximetry. Rapid Sequence Intubation was conducted. The patient received succinylcholine and etomidate for adequate paralysis. Cricoid pressure was maintained from time induction agent was given to time of cuff balloon inflation. Using a GlideScope and a size 8 endotracheal tube with stylet, the patient was intubated on the 1st attempt. The stylet was removed and cuff balloon was inflated. Appropriate endotracheal tube position was confirmed by direct visualization of vocal cord passage, fogging of the tube, CO2 colormetric indicator and symmetric breath sounds. The tube was secured at 23 cm at the lips. Post intubation chest x-ray is pending at this time. Date of Service: May 29, 2024 Billing Provider: FERCHO FRIEND MD Common Visit Codes: PROCEDURE ONLY Procedure Codes: [id number] KVNG DANIELSON May 29, 2024 05:53
[2024-05-29] MEDS: PANTOPRAZOLE 40 MG TAB PO SCH (06:00)
[2024-05-29] MEDS: FUROSEMIDE 40 MG/4 ML VIAL IV SCH (06:00)
--- NOTE | 2024-05-29 06:20 | DVH ---
CHEST RADIOGRAPH Indication: Pneumonia Technique: Single frontal view of the chest was obtained Comparison: XY CHEST XRAY 1 VIEW on DOS: 05/27/24 FINDINGS: Lines and Tubes: None Lungs: Bilateral focal consolidation. Pleura: No effusion. No pneumothorax. Cardiomediastinal contours: Cardiomegaly. Bones: No acute osseous abnormality. IMPRESSION: 1. Bilateral focal consolidation.
--- NOTE | 2024-05-29 07:05 | DVH ---
CHEST RADIOGRAPH Indication: POST INTUBATION AND NGT INSERTION Technique: Single frontal view of the chest was obtained COMPARISON: XY CHEST PORTABLE on DOS: 05/29/24, XY CHEST XRAY 1 VIEW on DOS: 05/27/24, XY CHEST XRAY 1 VIEW on DOS: 05/26/24, XY CHEST PORTABLE on DOS: 04/04/24 FINDINGS: Lines and Tubes: Endotracheal tube and enteric catheter in satisfactory position. Lungs: Congestion Pleura: No effusion. No pneumothorax. Cardiomediastinal contours: Cardiomegaly Bones: Unremarkable IMPRESSION: Lines and tubes in satisfactory position. No significant interval change.
--- NOTE | 2024-05-29 07:18 | RESUS ---
CODE ASSIST ASSESSSMENT Initial Information Code Assist Date: May 29, 2024 Code Assist Time: 05:07 [facility] of Arrest: [facility] Room [facility] 291A Provider Name DR FRIEND Time Notified: 05:20 Time PMD returned call: 05:20 Crash Cart Opened and Supplies: No Situation Staff concerned/worried, speci: HR >130, RR >28, Change LOC, Failure to respond to Tx Situation comment: EARLIER PT HAD TO BE PLACED BACK ON BIPAP DUE TO SOB AND WAS TOLERATING IT. PATIENT BECAME ANXIOUS. WORK OF BREATHING WORSENED. RESPIRATORY RATE IS 35 TO 45 BPM. PATIENT HEART RATE IS IN THE 150'S. SPO2 IS IN THE LOW 90S ON BIPAP WITH AN FIO2 OF 90%. CODE ASSIST CALLED. Background Background: 63 y/o F is BIBA for c/o flu-like symptoms and shortness of breath, today. Patient endorses on shortness of breath symptom worsening, this evening, following initial onset alongside flu-like symptoms, yesterday, and having no relief or improvement with 4x at-home nebulizer breathing treatments use or increasing her home O2 from baseline 2LPM to 4LPM. She comments on flu-symptoms including headache, lightheadedness, fever, and non-productive cough w/secondary associated chest-wall pain in addition to her daughter being sick with similar symptoms at home, currently. Per EMS report, patient has a history of CAD, CHF, COPD w/2LPM home O2 use, DM type II w/neuropathy, and HTN and was noted to have been found with a SpO2 of 86% on scene and was given DuoNeb breathing treatment en route, improving to a value of 98% upon arrival to ED. At time of assessment, patient reports no additional relevant or pertinent history, such as recent travel, aside from c/o right-leg swelling, that she is, currently, on a water-pill for, since March 2024. Patient denies having any nausea, vomiting, abdominal pain, urinary symptoms, palpitations, or other associated symptoms or modifiers at this time. Assessment Temperature (Fahrenheit): 99.2 Blood Pressure Systolic: 189 Blood Pressure Diastolic: 144 Respiratory Rate: 40 O2 Sat by Pulse Oximetry: 91 Bedside Blood Glucose: 205 Assessment comment: PT ALTERED, TACHYPNIC COARSE LUNG SOUNDS, SAO2 91%. Recommendations/Interventions Medications and Responses : Medication Time: 05:10 Route of Administration: IV Medication Comment: ETOMIDATE 20MG IV, SUCCINOCHOLINE 80 MG IV FOR INTUBATION Heart Rate: 150 EKG Rhythm: Sinus Tachycardia Blood Pressure Systolic: 180 Blood Pressure Diastolic: 104 Respiratory Rate: 22 O2 Sat by Pulse Oximetry: 100 Procedures: Accu check, ABG, CXR Portable, CMP, CBC, Troponin, Cardiac Monitoring, Intubated Outcome Outcome: Transfer to ICU Team Members Team Members DR DANIELSON, DR FRIEND, NOE RN HS, ARDEN METAL ENGRAVER ICU, KAROLINA METAL ENGRAVER, ALAN METAL ENGRAVER, TINO MARTINEZ PRIMARY, MUSA RT, JAMIE RT. NOE STEIN May 29, 2024 07:18
[2024-05-29] MEDS: NOREPINEPHRINE 8 MG/250ML KIT 250 ML IV SCH (07:30)
[2024-05-29 08:19] LABS: Base Excess -5.1 mmol/L (-2.0-3.0)
--- NOTE | 2024-05-29 09:19 | DVH ---
CLINICAL INFORMATION: 63 years old, Female; central line placement. TECHNIQUE: Single AP portable chest radiograph was obtained. COMPARISON: XY CHEST PORTABLE on DOS: 05/29/24, XY CHEST PORTABLE on DOS: 05/29/24, XY CHEST XRAY 1 VIE W on DOS: 05/27/24 FINDINGS: Interval placement of a right internal jugular central venous catheter with the tip at the level of t he distal SVC. No pneumothorax visualized, although right lung apex is incompletely included within t he dfspv-az-zmit of the exam. Stable satisfactory positioning of the endotracheal tube and enteric tu be. No significant change in the bilateral multifocal airspace opacities and interstitial opacities. No other significant interval change. IMPRESSION: 1. Interval placement of a right internal jugular central venous catheter with the tip at the distal SVC. 2. No pneumothorax visualized. Small portions of the right lung apex are excluded from the field-of-v iew of the exam. 3. No other significant interval change.
--- NOTE | 2024-05-29 09:33 | DVHPN2 ---
Assessment/Plan Assessment/Plan ICU progress note 63 yo F with COPD, HFrEF 30%, CAD s/p JOE x4 on plavix, IDDM admitted for shortness of breath. Initially found to be tachycardic tachypneic on bipap, improved after, placed on 2-3LPM, overnight, another episode of tachycardia, hypertension and tachypnea, placed back on bipap, altered and was intubated for hypoxic hypercapnic respiratory failure. Physical exam sedated and intubated on mechanical ventilator s1 s2 RRR systolic murmur mechanical breath sounds bloody secretion in ETT abdomen distended trace LE edema, skin wrinkles labs imaging and echo reviewed Assessment and plan Distributive shock sedation related Acute on chronic hypoxic respiratory failure 2/2 PNA vs pulmonary edema? acute on chronic systolic heart failure with reduced ejection fraction, EF 30%, NYHA II CAD s/p JOE x4 on plavix IDDM with hyperglycemia panic attack vs LUÍS? Hemoptysis? Morbid obesity rule out secondary htn c/w mechanical ventilation c/w sedation, maintain raas -2, vent synchrony maintain map >65, levophed if needed c/w lasix IV maintain -500 to 1L c/w zosyn klonazepam lantus ISS fsx4 hold tube feeding for possible bronch pulm consult appreciated hold lovenox for hemoptysis, c/w plavix miralax daily renal doppler urine metanephrine if HTN will start nicardipine drip CTAP strict IO daily weight diet hold dvt ppx hold gi ppx protonix condition critical prognosis poor code status full code 94 minutes critical care time spend Plan discussed with: Other My Orders Orders - SINGH SALMERON MD Procedure Category Date Status Time Pantoprazole PHA 05/29/24 In Process (Protonix) 10:00 Echo 2d Mode Cardiac US 05/29/24 Logged DOP 08:25 Complete Blood Count LAB 05/30/24 Verified 04:00 Comprehensive LAB 05/30/24 Verified Metabolic Panel 04:00 Magnesium LAB 05/30/24 Verified 04:00 Phosphorus LAB 05/30/24 Verified 04:00 Lactic Acid W/ Reflex LAB 05/30/24 Verified Order 04:00 Renal Artery Comp US 05/29/24 Logged 08:32 Clonazepam Tablet PHA 05/29/24 In Process (Klonopin Tablet) 10:00 Electrocardigram EKG 05/29/24 Logged 08:34 Abg W/ Co-Ox RT 05/29/24 Logged 09:15 Date of Service: May 29, 2024 Billing Provider: SINGH SALMERON MD Common Visit Codes: 53074-KGHNEBSO CARE 30-74 MIN, 65394-MTWPKWRI CARE-EACH +30MIN SINGH SALMERON MD May 29, 2024 09:33
[2024-05-29] MEDS: clonazePAM 0.5 MG TAB PO SCH (10:00)
[2024-05-29 10:26] LABS: Base Excess -2.5 mmol/L (-2.0-3.0)
[2024-05-29] MEDS: methylPREDNISolone SOD SUCC 40 MG/ML VL IV SCH (11:22)
--- NOTE | 2024-05-29 11:22 | DVHNC2 ---
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 The skin was thoroughly sponged with chlorhexidine and allowed to dry. All persons involved were shielded with hair nets, face masks and sterile gowns. With sterile-gloved hands the right neck area was draped with the large disposable sterile field provided in the pre-manufactured kit. The skin and subcutaneous tissues superficial to the RIGHT internal jugular vein were anesthetized with 2 mL of 1% lidocaine. The RIGHT internal jugular vein was identified on ultrasound from the angle of the mandible down into the supraclavicular fossa using the linear ultrasound probe in the transverse orientation. The carotid artery was identified and avoided utilizing color-flow. The internal jugular vein was then placed in the center of the ultrasound field and compressed for patency. A movement artifact was identified as the needle was advanced through the skin and advanced toward the vessel. A real time hyperechoic signal revealed visualization of vascular needle entry into the lumen as blood was noted to flashback in the syringe. The needle was then held in place while the guide wire was advanced. The needle was then removed. Direct visualization of guide wire location within the vein was noted on ultrasound indicating proper placement and was document in the electronic medical record chart. A skin dilator was advanced over the guidewire and removed, and the triple-lumen catheter was then advanced over the guide wire into proper position. The guide wire was removed and discarded. The ports were aspirated which showed good blood return and then carefully flushed with normal saline. The catheter was stabilized and sutured to the skin with 2-0 silk at 2 anchor points. A sterile bio-patch and dressing was placed over the catheter, including the insertion site. The patient tolerated the procedure well. A chest x-ray was ordered for position confirmation. Post-procedure chest x-ray was ordered. Date of Service: May 29, 2024 Billing Provider: BEST COE MD Common Visit Codes: PROCEDURE ONLY Procedure Codes: [id number] NON-TUNNEL CV CATH [facility] RESIDENT May 29, 2024 11:22
[2024-05-29] MEDS: PANTOPRAZOLE 40 MG/10 ML VIAL INJ IV SCH (11:23)
[2024-05-29 11:52] LABS: Alkaline Phosphatase 91 U/L (46-116); Anion Gap 4 (5-15); BUN/Creatinine Ratio 22.4 (10.0-20.0); Calcium 8.9 mg/dL (8.7-10.4); Carbon Dioxide 29 mmol/L (20-31); Potassium 4.6 mmol/L (3.5-5.1); Sodium 141 mmol/L (136-145)
[2024-05-29 11:53] LABS: Alanine Aminotransferase 40 U/L (7-40); Albumin 3.8 g/dL (3.2-4.8); Aspartate Aminotransferase 73 U/L (13-40); Bilirubin, Total 0.6 mg/dL (0.2-1.0); Blood Urea Nitrogen 30 mg/dL (9-23); Chloride 108 mmol/L (98-107); Glucose 160 mg/dL (74-106); Total Protein 5.9 g/dL (5.7-8.2)
[2024-05-29 12:12] LABS: INR 0.97 (0.9-1.15); Prothrombin Time 10.3 sec (9.3-11.8)
[2024-05-29 12:29] LABS: Basophils # (auto) 0 10 ^3/uL (0-0.2); Basophils % (auto) 0.2 % (0.0-2.0); Eosinophils # (auto) 0 10 ^3/uL (0-0.8); Hematocrit 36.7 % (36.0-46.0); Hemoglobin 11.7 g/dL (12.2-16.2); Lymphocytes # (auto) 0.7 10 ^3/uL (0.4-5.4); Lymphocytes % (auto) 9.2 % (10.0-50.0); Mean Corpuscular Hemoglobin 30.3 pg (28.0-32.0); Mean Corpuscular Hgb Conc. 31.8 g/dL (32.0-36.0); Mean Corpuscular Volume 95.3 fL (80.0-100.0); Monocytes # (auto) 0.5 10 ^3/uL (0-1.3); Monocytes % (auto) 6.9 % (0.0-12.0); Neutrophils # (auto) 6.2 10 ^3/uL (1.6-8.6); Neutrophils % (auto) 83.7 % (37.0-80.0); Nucleated Red Blood Cells % 0.2 %; Platelet Count (auto) 120 10^3/uL (140-450); Red Blood Cells 3.85 10^6/uL (4.0-5.20); Red Cell Distribution Width 15.4 % (11.8-14.3); White Blood Cell 7.4 10^3/uL (4.4-10.8)
--- NOTE | 2024-05-29 12:54 | DVH ---
CLINICAL INFORMATION: 63 years old, Female TECHNIQUE: Grayscale sonographic imaging of the kidneys was performed, assisted by color Doppler sondra ny. Duplex Doppler ultrasound of the renal arteries aorta was performed, with color flow and spe ctral waveform analysis COMPARISON: None FINDINGS: The right kidney measures 9.7 cm in length. No hydronephrosis. Unremarkable cortical thi ckness and echogenicity. The left kidney measures 8.7 cm in length. No hydronephrosis. Unremarkable cortical thickness and e chogenicity. Aorta measures up to 2.3 x 3.2 cm in diameter. Mural thrombus visualized in the anterior wall of the midportion of the abdominal aorta measuring up to 3.2 cm. Peak systolic velocity in the abdominal aor ta measures up to 37.6 centimeter/second. Right renal artery peak systolic velocity measures 29 centimeter/second with end-diastolic velocity o f 4 centimeter/second and renal to aortic ratio of 0.8 resistive index measures 0.85. Left renal artery peak systolic velocity measures 48 centimeter/second with end-diastolic velocity of 13 centimeter/second and renal to aortic ratio of 1.4. Resistive index measures 0.71. Incidental note is made of gallstones visualized in the gallbladder. IMPRESSION: 1. No evidence of significant renal artery stenosis. 2. Prominent mural thrombus suspected in the anterior wall of the mid aorta. Aorta measures up to 2.3 x 3.2 cm. 3. No hydronephrosis. 4. Cholelithiasis incidentally noted.
[2024-05-29 12:56] LABS: Base Excess -2.6 mmol/L (-2.0-3.0)
--- NOTE | 2024-05-29 13:20 | DVHSR ---
APPROVED REPORT EXAM: Two-dimensional and M-mode echocardiogram with Doppler and color Doppler. Blood Pressure: 102/62 mmHg INDICATION EF RISK FACTORS Height: 5'1", Weight: 246 DIMENSIONS LVDd4.9 (3.8-5.7cm)LA (2D)5.0 (1.9-4.0cm)Aortic Root2.8 (2.0-3.7cm) LVDs4.1 (2.5-4.0cm)LA (MM) (1.9-4.0cm)Aortic Cusp Exc1.8 (1.5-2.0cm) EF (%) 30.0 (55-70%)Rt. Atrium3.9 (1.9-4.0cm)Asc. Aorta cm IVSd1.5 (0.7-1.1cm)RV (D) (1.8-2.4cm) PWd1.3 (0.7-1.1cm) Mitral Valve MitralMitral Stenosis E wave1.07m/sMV Mean GR.mmHg A wave0.87m/sMV Peak GR.mmHg E/A ratio1.22D MVAcm2 DECEL [id number] 1/2 Timems Aortic Valve Aortic ValveAortic Stenosis V10.96m/Demarcus Mean GR.5mmHg V21.49m/Demarcus Peak GR.9mmHg LVOT Diameter1.9 (1.8-2.4cm)Doppler AVA1.83cm2 Pulmonic Valve V20.99m/s LEFT VENTRICLE The left ventricle is of normal size. Wall thickness is aypj-cl-reifnjvwgs increased. Ejection frac tion is decreased and is estimated at 25-30% based on visual estimate. There is mbyszcfj-fx-chsirr g lobal hypokinesis. There is a grade II diastolic dysfunction. RIGHT VENTRICLE The right ventricle is of normal size. Right ventricular systolic function is normal. ATRIA The left atrium is severely dilated in size. The right atrium was of normal size. Not well visualized. MITRAL VALVE There is moderate to severe mitral annular calcification. There is mild central mitral regurgitation . There is mild mitral stenosis with a mean gradient of 5 mm Hg at a heart rate of 82 beats per vernell te. PULMONIC VALVE Likely normal. TRICUSPID VALVE Normal structure and function. There is trace tricuspid regurgitation. PA systolic pressure is not adequately estimated. AORTIC VALVE The leaflets are sclerotic. No significant stenosis or regurgitation. GREAT VESSELS Aortic root is of normal size. Proximal ascending aorta is not visualized. PERICARDIAL EFFUSION There is small pericardial effusion. IVC is dilated in size. Conclusion Normal left ventricular size with an ejection fraction of 25-30%. There is jirwgsqj-ru-wqjadd global hypokinesis of the left ventricle. Xcje-wg-ahwouuvf concentric left ventricular hypertrophy. Normal right ventricular size and systolic function. Grade II diastolic dysfunction. Becajcti-jr-orglhy mitral annular calcification with mild mitral stenosis. Small pericardial effusion. PA systolic pressure is not adequately estimated.
[2024-05-29] MEDS: IOHEXOL 300 MG/ML 100ML BOTTLE IJ ONE (14:03)
[2024-05-29] MEDS ORDERED: VANCOMYCIN PER PHARMACY 0 MG IV SCH (15:00)
--- NOTE | 2024-05-29 15:06 | DVH ---
Exam: CT CT AB PEL WITH IV CON ONLY History: adrenal mass COMPARISON: None Technique: Multidetector spiral CT of the abdomen and pelvis was performed from lung bases to pubic symphysis. Intravenous contrast was administered during this examination. Portal venous imaging was obtained. Axial, coronal and sagittal multiplanar reformats were performed by the technologist on a separate workstation. Radiation Dose : Abdomen/Pelvis: CTDIvol 111 mGy, DLP 4084 mGy*cm. CONTRAST: Type of contrast: Omni 300 Contrast injected: 100 mL Findings: Lung Bases: Patchy consolidation in the visualized lung bases. Trace bilateral pleural effusions. Liver: The liver is normal in size. No focal lesions. Normal hepatic vascular enhancement. Gallbladder and biliary Tree: Cholelithiasis noted without secondary findings of cholecystitis or adam iary obstruction. Spleen: Unremarkable Pancreas: The pancreas is normal in appearance without focal lesions or abnormal enhancement. Adrenal Glands: Unremarkable Kidneys: No hydronephrosis. Bladder: Bladder is decompressed with a Guan catheter and cannot be adequately assessed. Bowel: The stomach is grossly normal in appearance. Small bowel and colon are normal in caliber and d istribution. Normal appendix is visualized in the right lower quadrant without findings of appendici tis. Ascites: Absent Lymphadenopathy: No mesenteric, retroperitoneal or periportal lymphadenopathy. Abdominal wall and Mesentery: Large ventral hernia containing fat. Vasculature: Calcified atherosclerotic disease. Pelvic Organs: Unremarkable Musculoskeletal: No aggressive focal bony lesions, acute fractures or dislocation. IMPRESSION: 1. Patchy bilateral pneumonia with associated trace bilateral pleural effusions in the visualized constantine g bases. No definite adrenal mass identified. Cholelithiasis. Large fat containing ventral hernia. Radiation optimization: All CT scans at this facility use at least one of these dose optimization jaci hniques: Automated exposure control mA and/or kV adjustment per patient size (includes targeted exams where dose is matched to clinical indication) or iterative reconstruction. HS:Y
[2024-05-29] MEDS ORDERED: VANCOMYCIN 1GM/250ML KIT 250 ML IV ONE (15:30)
[2024-05-29] MEDS: VANCOMYCIN 1.5GM/300ML 300 ML IV ONE (16:36)
[2024-05-29] MEDS ORDERED: DEXTROSE (50%) 50ML SYRG IV PRN (17:30)
[2024-05-29] MEDS: InsuLIN REG 1unit/0.01ml Soln (100units/ml) SC SCH (20:00)
[2024-05-29] MEDS: ACCU-CHEK COMFORT CURVE STRIP VI SCH (20:00)
[2024-05-29] MEDS: TRANEXAMIC ACID 1,000 MG in SODIUM CHL 0.9% 100 ML IV ONE (20:00)
--- NOTE | 2024-05-29 21:13 | DVHNC2 ---
Procedure - Bronchoscopy procedure note: Indications: R/o active hemorrhage within airway. Medicines: See RN PATIENT SERVICES notes. Complications: None Procedure: Patient medications and allergies reviewed. The risks and benefits of the procedure and the sedation options and risk were discussed with the patient's healthcare proxy. All questions were answered and informed consent was obtained. Patient identification and proposed procedure were verified prior to the procedure by the physician, and a nurse, and the respiratory therapist in ICU room. The heart rate, respiratory rate, oxygen saturations, blood pressure, adequacy of pulmonary ventilation, and response to care were monitored throughout the procedure. The physical status of the patient was reassessed after the procedure. After obtaining informed consent, the bronchoscope was introduced through the endotracheal tube and advanced into the trachea bronchial tree of both lungs. The procedure was accomplished without difficulty. The patient tolerated the procedure well. Findings: The trachea is in normal caliber. The danelle is sharp. The tracheobronchial tree of the right lung was examined to at least the first subsegmental level. The bronchial mucosa and anatomy in the right lung are normal. There are no endobronchial lesions. There was active bleeding at R4-R5 bronchi. Right middle lobe (RML) Bronchoalveolar lavage (BAL) obtained. RML BAL sent for gram stain and culture. The left upper lobe, lingula, and left lower lobe were examined to at least the first subsegmental level. Bronchial mucosa and anatomy in the left upper lobe and lingula are normal. There were no endobronchial lesions. There was active hemorrhage from L1-L4 bronchi. There was active bleeding at the completion of the procedure from the named sites. It did not resolve with 20 mL cold saline aliquots. Plan to administer TXA IVPB dose. Estimated blood loss: Less than 5 mL. Impression: Hemorrhage noted from right middle lobe bronchus and from left upper lobe and lingular bronchus RML BAL performed Recommendation: Follow-up RML BAL results. Plan for TXA IVPB x 1. Procedure codes: 09253, bronchoscopy, rigid and flexible, including fluoroscopic guidance, one performed; with bronchial endobronchial broncho-alveolar lavage, single or multiple sites MARYANNE ELLIOTT MD May 29, 2024 21:13
--- NOTE | 2024-05-29 21:15 | DVHNC2 ---
Procedure - Radial arterial line procedure note Indication: Hemodynamic monitoring, frequent blood ABG draws. Speech Language Pathology Assistant: Dr. Aguero Date: 05/29/24 Time out time: 2030 pm Consent: Consent was obtained from patient's healthcare proxy prior to procedure. Indications, risks, and benefits were explained at length. Patient medications and allergies reviewed. The risks and benefits of the procedure and the sedation options and risk were discussed with the patient's healthcare proxy. All questions were answered and informed consent was obtained. Patient identification and proposed procedure were verified prior to the procedure by the physician, and a nurse in the patient's room. The heart rate, respiratory rate, oxygen saturations, blood pressure, adequacy of pulmonary ventilation, and response to care were monitored throughout the procedure. The physical status of the patient was reassessed after the procedure. Procedure summary: A time-out was performed. My hands were washed immediately prior to the procedure. I wore surgical cap, mask with protective eyewear, sterile gown and sterile gloves throughout the procedure. After an Raciel test was performed to ensure adequate perfusion, the LEFT/RIGHT wrist was prepped using chlorhexidine scrub and draped in sterile fashion using sterile towels. The radial pulse was identified with the use of ultrasound. The wrist was positioned in the usual fashion. Anesthesia was achieved using 1% lidocaine. Using the radial arterial line kit, needle was inserted into the radial artery using ultrasound guidance. Arterial blood flow was seen to pulsate in the flash chamber. The internal guidewire was advanced easily into the radial artery. The catheter was then advanced over the wire and the needle and wire were withdrawn. The catheter was sutured into place with 1 sutures. A sterile Biopatch and Tegaderm was placed over the catheter at the insertion site. The patient tolerated the procedure without any hemodynamic compromise. At the time of procedure completion, the catheter was connected to the conveyor monitor and calibrated. Appropriate waveform and blood pressure tracing was observed. Estimated blood loss is less than 5 mL. CPT: 06116 Arterial line insertion CPT: 04358 US add-on MARYANNE AGUERO MD May 29, 2024 21:15
--- NOTE | 2024-05-29 22:00 | DVHINCON2 ---
Date of service: May 29, 2024 Referring Physician Barrett Reyes MD Reason for Consultation Acute on chronic hypoxic respiratory failure requiring mechanical ventilator History of Present Illness A 63-year-old woman with past medical history of COPD, diabetes mellitus, hypertension, CHF, and CAD who presented to ED on 05/27/24 for evaluation of shortness of breath. Patient reported a 2-day history of flu-like symptoms in cluding cough, fever, headache and generalized body aches. Denied nausea or vomiting or chest pain. He was initially found to be tachycardic, tachypneic on BIPAP, improved after, was placed on 2-3 LPM; overnight had another episode of tachycardia, hypertension and tachypnea, placed back on BIPAP, altered and was intubated for hypoxic hypercapnic respiratory failure. Patient was admitted for further care. Pulmonary consultation is requested for evaluation and management of acute on chronic hypoxic respiratory failure requiring mechanical ventilator. Review of Systems: Unable to be obtained d/t intubated status. Past Medical History: COPD, diabetes mellitus, hypertension, CHF, CAD. Past Surgical History: Denies Medications: Reviewed. Allergies: No known drug allergies. Family History: Cardiovascular disease Chronic obstructive pulmonary disease Diabetes mellitus Hypertension. Social History: Nonsmoker. No alcohol or illicit drug use. Family History: Cardiovascular disease G8 MOTHER Chronic obstructive pulmonary disease G8 MOTHER Diabetes mellitus G8 MOTHER Hypertension G8 MOTHER 19 CHILD, Name: Izabel Tucker Allergies: Coded Allergies: NO KNOWN ALLERGIES (Unverified , 04/04/24) Home Meds Reported Medications Famotidine (Famotidine) 20 Mg Tab, 1 TAB PO DAILY PRN for GERD for 30 Days, #30 05/30/24 Atorvastatin Calcium (Lipitor) 80 Mg Tab, 1 TAB PO DAILY for 30 Days, #30 05/30/24 Albuterol Sulfate (Albuterol Sulfate Hfa) 108 Mcg/Act Aer, 1-2 PUFF IN Q6HR PRN for 50 Days, #18 05/30/24 Pantoprazole Sodium Sesquihydr (Protonix) 40 Mg Tab, 20 MG PO DAILY for 30 Days, #30 05/30/24 Benazepril Hcl (Benazepril Hcl) 20 Mg Tab, 1 TAB PO DAILY for 90 Days, #90 05/30/24 Furosemide (Furosemide) 20 Mg Tab, 1 TAB PO DAILY for 30 Days, #30 05/30/24 Metformin Hydrochloride (Metformin Hcl) 500 Mg Tab, 1 TAB PO BID for 90 Days, #180 04/06/24 Fluticasone Furoate-Vilanterol (Breo Ellipta 200-25 Mcg/INH) 1 Inh Inh, 1 INH IN DAILY, INHALER 04/05/24 Metoprolol Tartrate (Lopressor) 25 Mg Tb, 25 MG PO DAILY, TAB 04/05/24 Gabapentin (Gabapentin) 800 Mg Tab, 800 MG PO BID, TAB 04/05/24 Montelukast Sodium (MONTELUKAST SODIUM) 10 Mg Tab, 1 TAB PO DAILY for 30 Days, #30 04/05/24 Clopidogrel Bisulfate (CLOPIDOGREL) 75 Mg Tab, 1 TAB PO DAILY for 30 Days, #30 04/05/24 Glipizide (Glipizide) 5 Mg Tab, 5 MG PO BID, MG 04/05/24 Discontinued Reported Medications Benazepril Hcl (LOTENSIN TABLET) 10 Mg Tb, 10 MG GT, TAB 04/06/24 Furosemide (Furosemide) 40 Mg Tab, 1 TAB PO DAILY, #30 TAB 5 Refills 04/06/24 Current Medications Current Medications Medications (Trade) Dose Ordered Sig/Jeanne Route PRN Reason Start Time Stop Time Status Last Admin Pantoprazole Sodium (Protonix Tablet) 40 mg DAILY@0600 PO 05/29/24 06:00 05/29/24 08:24 DC Norepinephrine Bitartrate 250 ml @ 3.75 mls/hr Q24H IV 05/29/24 05:15 05/29/24 09:50 Midazolam HCl 50 ml @ 1 mls/hr Q24H IV 05/29/24 05:15 05/29/24 15:42 Furosemide (Lasix Injection) 40 mg BIDD IV 05/29/24 05:30 05/29/24 18:15 Propofol 100 ml @ 3.36 mls/hr Q24H IV 05/29/24 06:30 05/29/24 16:59 Fentanyl Citrate 250 ml @ 2.5 mls/hr Q24H IV 05/29/24 06:30 05/29/24 19:39 Pantoprazole Sodium (Protonix) 40 mg DAILY IV 05/29/24 10:00 05/29/24 11:23 Clonazepam (KlonoPIN TABLET) 1 mg Q12HR PO 05/29/24 10:00 Methylprednisolone Sodium Succinate (Solu Medrol) 40 mg BID IV 05/29/24 10:00 05/29/24 11:22 Vancomycin HCl 0 ml @ 0 mls/hr UD IV 05/29/24 15:00 Diagnostic Test (Pha) (Accu-Chek Comfort Curve T) 1 strip IQ4HR 05/29/24 20:00 05/29/24 20:00 Insulin Human Regular (InsuLIN R) IQ4HR SC 05/29/24 20:00 05/29/24 20:00 Dextrose 50 ml UD PRN IV Blood Sugar LESS THAN 60 05/29/24 17:30 Vital Signs Vital Signs Date Time Temp Pulse Resp B/P (MAP) Pulse Ox O2 Delivery O2 Flow Rate FiO2 05/29/24 20:58 95 26 101/55 (70) 99 65 05/29/24 20:00 Mechanical Ventilator+ 05/29/24 19:04 97.5 97.5 05/28/24 20:00 3 Physical Exam Gen.: Patient lying in bed in medical ICU. Sedated, intubated on mechanical ventilator. Head: Normocephalic, atraumatic. Eyes: PERRLA. Ears: Normal external anatomy. Throat: Endotracheal tube and orogastric tube in place. Neck: Supple, trachea midline. Chest: Transmitted breath sounds bilaterally. Decreased air entry bilaterally. No wheezing. Bibasilar crackles. Cardiovascular: Positive S1, positive S2. Regular rate and rhythm. Abdomen: Positive bowel sounds in all 4 quadrants. Soft, nontender, nondistended. : Guan in place. Normal external genitalia. Rectal: Deferred. Skin: Warm, dry. Intact. Extremities: 2+ radial pulses bilaterally. No lower extremity edema. Neuro: Sedated. Labs/Diagnostic Data Labs Test 05/29/24 20:42 05/29/24 12:50 05/29/24 12:00 05/29/24 10:17 Range/Units POC Glucose 304 H 70-106 mg/dl Blood Gas Specimen Type Arterial Blood Gas Sample Site Left radial Blood Gas Patient Temperature 37.0 Arterial Blood Date Drawn [id number] Arterial Blood pH 7.283 L 7.350-7.450 Arterial Blood Partial Pressure CO2 53.4 H 32.0-45.0 mmHg Arterial Blood Partial Pressure O2 122.4 H 83.0-108.0 mmHg Arterial Blood HCO3 24.7 21.0-28.0 mmol/L Arterial Blood Oxygen Saturation 98.0 94.0-98.0 % Arterial Blood Base Excess -2.6 L -2.0-3.0 mmol/L Arterial Blood Oxyhemoglobin 97.4 94.0-98.0 % Arterial Blood Carboxyhemoglobin 0.3 L 0.5-1.5 % Arterial Blood Methemoglobin 0.3 0.0-1.5 % Raciel Test Modified Blood Gas Total Hemoglobin 12.50 12.0-16.0 g/dL Blood Gas Set Respiration Rate 26.0 Blood Gas Modality Vent - ac FiO2 % 80.0 Blood Gas Tidal Volume 450.0 Blood Gas PEEP or CPAP 5.0 Lactic Acid Level 1.3 0.4-2.0 mmol/L Blood Gas Critical Value Read Back Yes Blood Gas Notified Whom corinne Reyes md Blood Gas Notified Time [id number] Blood Gas Notified By Automotive Hardware Engineer roseanna Sumner 05/29/24 09:11 05/28/24 06:00 05/27/24 12:32 05/27/24 04:42 Range/Units White Blood Count 7.4 # 4.4-10.8 10^3/uL Red Blood Count 3.85 L 4.0-5.20 10^6/uL Hemoglobin 11.7 L 12.2-16.2 g/dL Hematocrit 36.7 36.0-46.0 % Mean Corpuscular Volume 95.3 80.0-100.0 fL Mean Corpuscular Hemoglobin 30.3 28.0-32.0 pg Mean Corpuscular Hemoglobin Concent 31.8 L 32.0-36.0 g/dL Red Cell Distribution Width 15.4 H 11.8-14.3 % Platelet Count 120 L 140-450 10^3/uL Mean Platelet Volume 10.0 6.9-10.8 fL Neutrophils (%) (Auto) 83.7 H 37.0-80.0 % Lymphocytes (%) (Auto) 9.2 L 10.0-50.0 % Monocytes (%) (Auto) 6.9 0.0-12.0 % Eosinophils (%) (Auto) 0.0 0.0-7.0 % Basophils (%) (Auto) 0.2 0.0-2.0 % Neutrophils # (Auto) 6.2 1.6-8.6 10 ^3/uL Lymphocytes # (Auto) 0.7 0.4-5.4 10 ^3/uL Monocytes # (Auto) 0.5 0-1.3 10 ^3/uL Eosinophils # (Auto) 0 0-0.8 10 ^3/uL Basophils # (Auto) 0 0-0.2 10 ^3/uL Nucleated Red Blood Cells 0.2 % Prothrombin Time 10.3 9.3-11.8 sec Prothrombin Time INR 0.97 0.9-1.15 Sodium Level 141 136-145 mmol/L Potassium Level 4.6 3.5-5.1 mmol/L Chloride Level 108 H 98-107 mmol/L Carbon Dioxide Level 29 20-31 mmol/L Anion Gap 4 L 5-15 Blood Urea Nitrogen 30 #H 9-23 mg/dL Creatinine 1.34 #H 0.550-1.02 mg/dL Glomerular Filtration Rate Calc 44 >90 mL/min BUN/Creatinine Ratio 22.4 H 10.0-20.0 Serum Glucose 160 H 74-106 mg/dL Calcium Level 8.9 8.7-10.4 mg/dL Magnesium Level 2.0 1.6-2.6 mg/dL Total Bilirubin 0.6 0.2-1.0 mg/dL Aspartate Amino Transferase (AST) 73 H 13-40 U/L Alanine Aminotransferase (ALT) 40 7-40 U/L Alkaline Phosphatase 91 46-116 U/L Total Protein 5.9 5.7-8.2 g/dL Albumin 3.8 3.2-4.8 g/dL Hemoglobin A1c 5.7 <5.7 % A1C Vitamin B12 Level 112 L 211-911 pg/mL Thyroid Stimulating Hormone (TSH) 0.18 L 0.55-4.78 uIU/mL Free Thyroxine (T4) Calculated 1.07 0.89-1.76 ng/dL Free Triiodothyronine (T3) pg/mL 2.34 2.3-4.2 pg/mL Blood Gas EPAP 7 Blood Gas IPAP 12 Troponin I High Sensitivity 34 </=34 ng/L Test 05/26/24 23:19 05/26/24 21:15 05/26/24 20:50 Range/Units Urine Color Light-yellow Yellow Urine Clarity Clear Clear Urine pH 5.5 5.0-9.0 Urine Specific Brick 1.016 1.001-1.035 Urine Protein Negative Negative Urine Ketones Negative Negative Urine Blood Negative Negative /uL Urine Nitrite Negative Negative Urine Bilirubin Negative Negative Urine Urobilinogen Normal Negative mg/dL Urine Leukocyte Esterase Negative Negative /uL Urine RBC <1 0 - 4 /hpf Urine WBC 1 0 - 5 /hpf Urine Squamous Epithelial Cells Few <5 /hpf Urine Bacteria None seen None Seen /hpf Urine Glucose Normal Normal mg/dL Influenza Type A Antigen Negative Negative Influenza Type B Antigen Negative Negative SARS-CoV-2 Antigen (Rapid) Negative NEGATIVE D-Dimer, Quantitative 1.28 H 0.0-0.49 mg/L FEU B-Type Natriuretic Peptide 393.97 0-100 pg/mL Microbiology Date/Time Source Procedure Growth Status 05/29/24 06:30 Nose MRSA Screen - Final Complete Assessment Impression: Acute on chronic hypoxic respiratory failure On mechanical ventilator Pulmonary hemorrhage COPD exacerbation CHF exacerbation Pneumonia, likely gram negative Morbid obesity Plan: s/p intubation on mechanical ventilator. CXR image and report reviewed. Devices in place. Bilateral multifocal airspace opacities and interstitial opacities. No pneumothorax. ABG reviewed, acidemia On AC mode; RR 26, VT 450, PEEP 5 -->8, FiO2 75% Titrate FIO2 to keep O2 saturation above 90%. VAP bundle. Daily ABG and CXR while intubated Sedate for ventilator synchrony - Fentanyl, Propofol S/p bronchoscopy with BAL - active hemorrhage Will give 1 dose of tranexamic acid. S/p placement of radial arterial line. Continue bronchodilators. Continue antibiotics. Continue steroids On pressors (Levophed) for hemodynamic support Titrate to keep mean arterial pressure greater than 65 mmHg. Monitor renal function Monitor electrolytes. Supplement as necessary. Monitor ins and outs. Morbid obesity- complicates all care. GI prophylaxis. DVT prophylaxis. Prognosis: Poor given patient's multiple co-morbidities. Condition: Critical Rest of plan per hospitalist and other consultants. A total of 35 minutes of critical care time was spent reviewing the patient record, examining the patient, making a diagnostic and therapeutic plan, discussing this plan with the medical personnel, following up on diagnostic studies and following the patient for clinical stability excluding any and all procedures. At least 50% of this time was spent in direct, [id number] contact. Thank you Dr. Reyes, for allowing me to participate in this patient's care. Further recommendations will depend on the patient's clinical course. Please do not hesitate to contact me if you have any questions or concerns. This medical document was created using an electronic medical record system with [employer] dictation system. Although these documentations are being carefully reviewed, there may still be some phonetic and typographical changes. The errors are purely typographical, due to imperfection on the software program, and do not reflect any compromise in the patient's medical care. Plan discussed with: Other (MICHELLE Rhodes/MD Reyes) MARYANNE ELLIOTT MD May 29, 2024 22:00
[2024-05-30] VITALS (107 sets, daily range): BP systolic 77–180; BP diastolic 25–99; PULSE 69–95; RESP 14–26; TEMP 97.5–99; O2SAT 91–99
[2024-05-30 04:15] LABS: Basophils # (auto) 0 10 ^3/uL (0-0.2); Basophils % (auto) 0.1 % (0.0-2.0); Eosinophils # (auto) 0 10 ^3/uL (0-0.8); Hematocrit 37.9 % (36.0-46.0); Hemoglobin 12.6 g/dL (12.2-16.2); Lymphocytes # (auto) 0.4 10 ^3/uL (0.4-5.4); Mean Corpuscular Hemoglobin 31.1 pg (28.0-32.0); Mean Corpuscular Hgb Conc. 33.2 g/dL (32.0-36.0); Mean Corpuscular Volume 93.7 fL (80.0-100.0); Monocytes # (auto) 0.2 10 ^3/uL (0-1.3); Monocytes % (auto) 3.5 % (0.0-12.0); Neutrophils # (auto) 5.9 10 ^3/uL (1.6-8.6); Neutrophils % (auto) 90.4 % (37.0-80.0); Platelet Count (auto) 170 10^3/uL (140-450); Red Blood Cells 4.05 10^6/uL (4.0-5.20); Red Cell Distribution Width 15.2 % (11.8-14.3); White Blood Cell 6.6 10^3/uL (4.4-10.8)
[2024-05-30 04:35] LABS: Alanine Aminotransferase 35 U/L (7-40); Albumin 4.1 g/dL (3.2-4.8); Alkaline Phosphatase 84 U/L (46-116); Anion Gap 8 (5-15); Bilirubin, Total 0.9 mg/dL (0.2-1.0); Calcium 9.4 mg/dL (8.7-10.4); Carbon Dioxide 26 mmol/L (20-31); Chloride 104 mmol/L (98-107); Magnesium 2.2 mg/dL (1.6-2.6); Potassium 4.1 mmol/L (3.5-5.1); Sodium 138 mmol/L (136-145); Total Protein 6.6 g/dL (5.7-8.2)
[2024-05-30 04:54] LABS: Aspartate Aminotransferase 41 U/L (13-40); Blood Urea Nitrogen 26 mg/dL (9-23); Glucose 336 mg/dL (74-106)
--- NOTE | 2024-05-30 05:41 | DVH ---
CHEST RADIOGRAPH Indication: VENTED Technique: Single frontal view of the chest was obtained Comparison: XY CHEST PORTABLE on DOS: 05/29/24 FINDINGS: Lines and Tubes: The endotracheal tube terminates 3.4 cm above the danelle. Right central venous cath eter terminates in the superior vena cava. The enteric tube courses below the left hemidiaphragm and the tip extends outside the field of view. Lungs: Bilateral pulmonary interstitial and alveolar opacities. Pleura: Small left pleural effusion. No pneumothorax. Cardiomediastinal contours: Enlarged but stable. Bones: No acute osseous abnormality. IMPRESSION: 1. Stable position of the support lines and tubes. 2. Bilateral multifocal opacities, stable. Small left pleural effusion.
[2024-05-30 07:56] LABS: Base Excess -0.9 mmol/L (-2.0-3.0)
[2024-05-30] MEDS: FUROSEMIDE 40 MG/4 ML VIAL IV SCH (10:55)
[2024-05-30] MEDS: AMIODARONE BOLUS KIT 100 ML IV ONE (10:56)
[2024-05-30] MEDS: AMIODARONE 360mg/200mL PREMIX 200 ML IV ONE (11:20)
--- NOTE | 2024-05-30 13:02 | ECG ---
[facility] Test Date: 2024-05-29 Test Time: 15:02:36 Pat Name: KESHIA CASTILLO Department: Room: [address] [place] [address] A Gender: F Engraver Block: MICHELLE WALTER : 1960 Requested By: QI BUTLER Order Number: [id number] Reading MD: Corrina Escudero Measurements Intervals [place] Rate: 84 P: 0 NM: 0 QRS: 11 QRSD: 100 T: 121 QT: 396 QTc: 467 Interpretive Statements Atrial fibrillation with premature ventricular or aberrantly conducted complexes Minimal voltage criteria for LVH, may be normal variant Cannot rule out Inferior infarct , age undetermined ST & T wave abnormality, consider lateral ischemia Electronically Signed On 05-30-2024 13:37:40 PST by Corrina Escudero Please click the below link to view image of tracing.
--- NOTE | 2024-05-30 13:34 | DVHPN2 ---
Assessment/Plan Assessment/Plan ICU progress note 63 yo F with COPD, HFrEF 30%, CAD s/p JOE x4 on plavix, IDDM admitted for shortness of breath. Initially found to be tachycardic tachypneic on bipap, improved after, placed on 2-3LPM, overnight, another episode of tachycardia, hypertension and tachypnea, placed back on bipap, altered and was intubated for hypoxic hypercapnic respiratory failure. seen by me today during rounds s/p bronch, active bleeding in L4, s/p TXA. oxygenation improved. BAl sent Physical exam sedated and intubated on mechanical ventilator s1 s2 RRR systolic murmur mechanical breath sounds bloody secretion in ETT abdomen distended trace LE edema, skin wrinkles labs imaging and echo reviewed Assessment and plan Distributive shock sedation related Acute on chronic hypoxic respiratory failure 2/2 PNA vs pulmonary edema? acute on chronic systolic heart failure with reduced ejection fraction, EF 30%, NYHA II CAD s/p JOE x4 on plavix IDDM with hyperglycemia panic attack vs LUÍS? Hemoptysis? Morbid obesity rule out secondary htn bronchial hemorrhage c/w mechanical ventilation c/w sedation, maintain raas -2, vent synchrony maintain map >65, levophed if needed c/w lasix IV maintain -500 to 1L c/w zosyn klonazepam lantus ISS fsx4 restart TF pulm consult appreciated hold lovenox for hemoptysis, c/w plavix miralax daily renal doppler urine metanephrine if HTN will start nicardipine drip CTAP strict IO daily weight follow BAL diet tube feeding dvt ppx hold gi ppx protonix condition critical prognosis poor code status full code 56 minutes critical care time spend Plan discussed with: Daughter My Orders Orders - SINGH SALMERON MD Procedure Category Date Status Time Vancomycin Per PHA 05/29/24 In Process Pharmacy 15:00 Glucose Blood PHA 05/29/24 In Process (Accu-Chek Comfort 20:00 Insulin R (Human) PHA 05/29/24 In Process (Insulin R) 20:00 Dextrose 50% Syringe PHA 05/29/24 In Process 17:30 Abg W/ Co-Ox RT 05/30/24 Logged 06:00 Furosemide Injection PHA 05/30/24 In Process (Lasix Injection) 10:00 Amiodarone PHA 05/30/24 In Process 360mg/200ml Premix 09:45 Amiodarone PHA 05/30/24 In Process 360mg/200ml Premix 15:45 Vancomycin 750mg Kit PHA 05/30/24 In Process (Vancomycin Hcl) 13:00 Vancomycin,Trough LAB 05/31/24 Verified 18:00 Vancomycin Per LISET 05/31/24 In Process Pharmacy Protoc 19:00 Creatinine LAB 05/31/24 Verified 18:00 Date of Service: May 30, 2024 Billing Provider: SNIGH SALMERON MD Common Visit Codes: [id number] CARE 30-74 MIN SINGH SALMERON MD May 30, 2024 13:34
[2024-05-30] MEDS: VANCOMYCIN 750MG KIT 100 ML IV SCH (13:44)
[2024-05-30] MEDS ORDERED: Glucerna 1.2 Cal 1Liter BOTTLE GT SCH (13:45)
[2024-05-30] MEDS: AMIODARONE 360mg/200mL PREMIX 200 ML IV SCH (16:33)
--- NOTE | 2024-05-30 21:23 | DVHPN2 ---
Progress Note - Dictate Date Seen: May 30, 2024 Medical Necessity Reason Pt with a Central, PICC or Fol: Yes The following are medically ne: Morel Catheter Reason for morel catheter: Strict I&O Subjective Patient seen and examined at bedside. Sedated, intubated on mechanical ventilator. Overnight events reviewed. vital signs Vital Sign Date Time Temp Pulse Resp B/P (MAP) Pulse Ox O2 Delivery O2 Flow Rate FiO2 05/30/24 20:45 98.4 72 26 136/34 (68) 95 209.1 113/52 (72) 05/30/24 20:00 35 05/30/24 20:00 Mechanical Ventilator+ 05/28/24 20:00 3 Total Intake and Output 05/29/24 05/29/24 05/30/24 15:00 23:00 07:00 Intake Total 468.64 ml 479.03 ml 472.94 ml Output Total 1100 ml 3600 ml Balance 468.64 ml -620.97 ml -3127.06 ml medications Current Medications Medications Dose Ordered Sig/Jeanne Route Start Time Stop Time Status Last Admin Dose Admin Clopidogrel Bisulfate 75 mg DAILY PO 05/27/24 10:00 05/30/24 10:59 75 MG Enoxaparin Sodium 40 mg DAILY SC 05/27/24 10:00 05/30/24 10:57 40 MG Acetaminophen 650 mg Q6HP PRN PO 05/27/24 04:15 Atorvastatin Calcium 40 mg HS PO 05/27/24 22:00 05/29/24 22:12 40 MG Piperacillin Sod/ Tazobactam Sod 100 ml @ 25 mls/hr Q8HR IV 05/27/24 14:00 05/30/24 14:39 25 MLS/HR Albuterol 2.5 mg Q4HR NEB 05/27/24 18:00 05/30/24 18:47 2.5 MG Ipratropium [place] 0.5 mg Q4HR NEB 05/27/24 18:00 05/30/24 18:47 0.5 MG Insulin Glargine 12 units HS SC 05/27/24 22:00 05/29/24 22:22 12 UNITS Norepinephrine Bitartrate 250 ml @ 3.75 mls/hr Q24H IV 05/29/24 05:15 05/30/24 16:34 11.25 MLS/HR Midazolam HCl 50 ml @ 1 mls/hr Q24H IV 05/29/24 05:15 05/30/24 20:10 11 MLS/HR Propofol 100 ml @ 3.36 mls/hr Q24H IV 05/29/24 06:30 05/29/24 16:59 10.08 MLS/HR Fentanyl Citrate 250 ml @ 2.5 mls/hr Q24H IV 05/29/24 06:30 05/30/24 08:38 17.5 MLS/HR Pantoprazole Sodium 40 mg DAILY IV 05/29/24 10:00 05/30/24 11:15 40 MG Clonazepam 1 mg Q12HR PO 05/29/24 10:00 05/29/24 22:12 1 MG Methylprednisolone Sodium Succinate 40 mg BID IV 05/29/24 10:00 05/30/24 11:15 40 MG Vancomycin HCl 0 ml @ 0 mls/hr UD IV 05/29/24 15:00 Diagnostic Test (Pha) 1 strip IQ4HR 05/29/24 20:00 05/30/24 19:51 1 STRIP Insulin Human Regular IQ4HR SC 05/29/24 20:00 05/30/24 19:53 12 UNITS Dextrose 50 ml UD PRN IV 05/29/24 17:30 Furosemide 40 mg DAILY IV 05/30/24 10:00 05/30/24 10:55 40 MG Vancomycin HCl 100 ml @ 100 mls/hr Q15H IV 05/30/24 13:00 05/30/24 13:44 100 MLS/HR Enteral Nutritional Formula 1,000 ml 30ML/HR GT 05/30/24 13:45 objective Gen.: Patient lying in bed in medical ICU. Sedated, intubated on mechanical ventilator. Head: Normocephalic, atraumatic. Eyes: PERRLA. Ears: Normal external anatomy. Throat: Endotracheal tube and orogastric tube in place. Neck: Supple, trachea midline. Chest: Transmitted breath sounds bilaterally. Decreased air entry bilaterally. No wheezing. Bibasilar crackles. Cardiovascular: Positive S1, positive S2. Regular rate and rhythm. Abdomen: Positive bowel sounds in all 4 quadrants. Soft, nontender, nondistended. : Morel in place. Normal external genitalia. Rectal: Deferred. Skin: Warm, dry. Intact. Extremities: 2+ radial pulses bilaterally. No lower extremity edema. Neuro: Sedated. laboratory and microbiology Laboratory Tests 05/30/24 03:56 Test 05/30/24 03:56 Range/Units Serum Glucose 336 H 74-106 mg/dL Assessment/Plan Impression: Acute on chronic hypoxic respiratory failure On mechanical ventilator Pulmonary hemorrhage COPD exacerbation CHF exacerbation Pneumonia, likely gram negative Morbid obesity Events: Remains on vent support On AC mode; RR 26, VT 450, PEEP 8 -->5, FiO2 75 -->35% Improved FiO2, PEEP requirements Sedated on Versed, Fentanyl On pressors for hemodynamic support Levophed 6 mcg/min Titrate to keep mean arterial pressure greater than 65 mmHg. ABG reviewed, notable for acidemia CXR reviewed, demonstrates devices in place. Bilateral multifocal opacities, stable. Small left pleural effusion. Hemorrhage via ET tube resolved. S/p tranexamic acid. Diurese w/ Lasix as tolerated Monitor renal function Monitor electrolytes. Supplement as necessary. Taper sedation as tolerated CPAP in the AM with PS 8, PEEP of 5. Labs and imaging reviewed. Rest of plan as noted below. Plan: s/p intubation on mechanical ventilator. On AC mode; RR 26, VT 450, PEEP 5, FiO2 35% Titrate FIO2 to keep O2 saturation above 90%. VAP bundle. Daily ABG and CXR while intubated Sedate for ventilator synchrony S/p bronchoscopy with BAL on 05/29/24 - see separate procedure note for details. S/p placement of radial arterial line. Continue bronchodilators. Continue antibiotics. Continue steroids On pressors (Levophed) for hemodynamic support Titrate to keep mean arterial pressure greater than 65 mmHg. Monitor renal function Monitor electrolytes. Supplement as necessary. Monitor ins and outs. Morbid obesity- complicates all care. GI prophylaxis. DVT prophylaxis. Prognosis: Poor given patient's multiple co-morbidities. Condition: Critical Rest of plan per hospitalist and other consultants. A total of 35 minutes of critical care time was spent reviewing the patient record, examining the patient, making a diagnostic and therapeutic plan, discussing this plan with the medical personnel, following up on diagnostic studies and following the patient for clinical stability excluding any and all procedures. At least 50% of this time was spent in direct, [id number] contact. Thank you Dr. Reyes, for allowing me to participate in this patient's care. Further recommendations will depend on the patient's clinical course. Please do not hesitate to contact me if you have any questions or concerns. This medical document was created using an electronic medical record system with [employer] dictation system. Although these documentations are being carefully reviewed, there may still be some phonetic and typographical changes. The errors are purely typographical, due to imperfection on the software program, and do not reflect any compromise in the patient's medical care. Dietary Evaluation Review Comments: 1. Provide the prescribed 2 gNa CCHO-60, Low Fat Lo Cholesterol diet when pt is off vent, EN available and passes a speech eval. Provide a Renal specific 40 g Protein restriction Diet if pt's kidney function further declines. 2. If GI accessible, EN is possible, consider a TF with Glucerna 40ml/hr (58g Pro, 1152 kcal) if PO feeding is not feasible. 3. Consider TPN per pharmacy if NPO >7 days and EN feeding is not feasible. Expected Outcomes/Goals: controlledd DM, gradual weight loss. Plan discussed with: Other (MICHELLE Porter) Critical Care Time(min): 35 MARYANNE ELLIOTT MD May 30, 2024 21:23
--- NOTE | 2024-05-30 23:56 | DVHINCON2 ---
Date of service: May 30, 2024 Referring Physician Garth Reason for Consultation A Fib, A Flutter History of Present Illness This is a 63-year-old female with a past medical history of COPD, diabetes mellitus, hypertension, CHF, and CAD who presented to ED on 05/27/24 due to c/o shortness of breath. Patient reported a 2-day history of flu-like symptoms including cough, fever, headache and generalized body aches. She was initially found to be tachycardic, tachypneic on BIPAP, improved after, was placed on 2-3 LPM. Chest x-ray shows cardiomegaly and increased pulmonary densities over both lower lung parr. May be secondary to patient's soft tissue densities or pulmonary airspace disease. Viral swabs are negative. Patient was admitted to the hospital. 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 Family History: Cardiovascular disease G8 MOTHER Chronic obstructive pulmonary disease G8 MOTHER Diabetes mellitus G8 MOTHER Hypertension G8 MOTHER 19 CHILD, Name: Izabel Tucker Allergies: Coded Allergies: NO KNOWN ALLERGIES (Unverified , 04/04/24) Home Meds Reported Medications Famotidine (Famotidine) 20 Mg Tab, 1 TAB PO DAILY PRN for GERD for 30 Days, #30 05/30/24 Atorvastatin Calcium (Lipitor) 80 Mg Tab, 1 TAB PO DAILY for 30 Days, #30 05/30/24 Albuterol Sulfate (Albuterol Sulfate Hfa) 108 Mcg/Act Aer, 1-2 PUFF IN Q6HR PRN for 50 Days, #18 05/30/24 Pantoprazole Sodium Sesquihydr (Protonix) 40 Mg Tab, 20 MG PO DAILY for 30 Days, #30 05/30/24 Benazepril Hcl (Benazepril Hcl) 20 Mg Tab, 1 TAB PO DAILY for 90 Days, #90 05/30/24 Furosemide (Furosemide) 20 Mg Tab, 1 TAB PO DAILY for 30 Days, #30 05/30/24 Metformin Hydrochloride (Metformin Hcl) 500 Mg Tab, 1 TAB PO BID for 90 Days, #180 04/06/24 Fluticasone Furoate-Vilanterol (Breo Ellipta 200-25 Mcg/INH) 1 Inh Inh, 1 INH IN DAILY, INHALER 04/05/24 Metoprolol Tartrate (Lopressor) 25 Mg Tb, 25 MG PO DAILY, TAB 04/05/24 Gabapentin (Gabapentin) 800 Mg Tab, 800 MG PO BID, TAB 04/05/24 Montelukast Sodium (MONTELUKAST SODIUM) 10 Mg Tab, 1 TAB PO DAILY for 30 Days, #30 04/05/24 Clopidogrel Bisulfate (CLOPIDOGREL) 75 Mg Tab, 1 TAB PO DAILY for 30 Days, #30 04/05/24 Glipizide (Glipizide) 5 Mg Tab, 5 MG PO BID, MG 04/05/24 Discontinued Reported Medications Benazepril Hcl (LOTENSIN TABLET) 10 Mg Tb, 10 MG GT, TAB 04/06/24 Furosemide (Furosemide) 40 Mg Tab, 1 TAB PO DAILY, #30 TAB 5 Refills 04/06/24 Current Medications Current Medications Medications (Trade) Dose Ordered Sig/Jeanne Route PRN Reason Start Time Stop Time Status Last Admin Furosemide (Lasix Injection) 40 mg DAILY IV 05/30/24 10:00 05/30/24 10:55 Vancomycin HCl 100 ml @ 100 mls/hr Q15H IV 05/30/24 13:00 05/30/24 13:44 Enteral Nutritional Formula (Glucerna 1.2 Rigoberto) 1,000 ml 30ML/HR GT 05/30/24 13:45 Review of Systems Unable to obtain as patient is intubated on ventilator. Vital Signs Vital Signs Date Time Temp Pulse Resp B/P (MAP) Pulse Ox O2 Delivery O2 Flow Rate FiO2 05/30/24 22:45 98.8 72 26 142/46 (78) 94 209.8 128/58 (81) 05/30/24 22:00 35 05/30/24 22:00 Mechanical Ventilator+ 05/28/24 20:00 3 Physical Exam GENERAL: Intubated on ventilator. Morbidly obese. LUNGS: Decreased breath sounds. CARDIOVASCULAR: Heart sounds are good. ABDOMEN: Soft. EXT: Trace BLE edema. Labs/Diagnostic Data Labs Test 05/30/24 21:48 05/30/24 07:33 05/30/24 03:56 05/29/24 10:17 Range/Units POC Glucose 272 H 70-106 mg/dl Blood Gas Specimen Type Arterial Blood Gas Sample Site Arterial line Blood Gas Patient Temperature 37.0 Arterial Blood Date Drawn [id number] Arterial Blood pH 7.347 L 7.350-7.450 Arterial Blood Partial Pressure CO2 47.0 H 32.0-45.0 mmHg Arterial Blood Partial Pressure O2 77.3 L 83.0-108.0 mmHg Arterial Blood HCO3 25.2 21.0-28.0 mmol/L Arterial Blood Oxygen Saturation 94.5 94.0-98.0 % Arterial Blood Base Excess -0.9 -2.0-3.0 mmol/L Arterial Blood Oxyhemoglobin 93.9 L 94.0-98.0 % Arterial Blood Carboxyhemoglobin 0.5 0.5-1.5 % Arterial Blood Methemoglobin 0.1 0.0-1.5 % Raciel Test N/a Blood Gas Total Hemoglobin 13.80 12.0-16.0 g/dL Blood Gas Set Respiration Rate 26.0 Blood Gas Modality Vent - ac FiO2 % 35.0 Blood Gas Tidal Volume 450.0 Blood Gas PEEP or CPAP 5.0 Blood Gas Critical Value Read Back Yes White Blood Count 6.6 4.4-10.8 10^3/uL Red Blood Count 4.05 4.0-5.20 10^6/uL Hemoglobin 12.6 12.2-16.2 g/dL Hematocrit 37.9 36.0-46.0 % Mean Corpuscular Volume 93.7 80.0-100.0 fL Mean Corpuscular Hemoglobin 31.1 28.0-32.0 pg Mean Corpuscular Hemoglobin Concent 33.2 32.0-36.0 g/dL Red Cell Distribution Width 15.2 H 11.8-14.3 % Platelet Count 170 140-450 10^3/uL Mean Platelet Volume 9.2 6.9-10.8 fL Neutrophils (%) (Auto) 90.4 H 37.0-80.0 % Lymphocytes (%) (Auto) 6.0 L 10.0-50.0 % Monocytes (%) (Auto) 3.5 0.0-12.0 % Eosinophils (%) (Auto) 0.0 0.0-7.0 % Basophils (%) (Auto) 0.1 0.0-2.0 % Neutrophils # (Auto) 5.9 1.6-8.6 10 ^3/uL Lymphocytes # (Auto) 0.4 0.4-5.4 10 ^3/uL Monocytes # (Auto) 0.2 0-1.3 10 ^3/uL Eosinophils # (Auto) 0 0-0.8 10 ^3/uL Basophils # (Auto) 0 0-0.2 10 ^3/uL Nucleated Red Blood Cells 0.0 % Sodium Level 138 136-145 mmol/L Potassium Level 4.1 3.5-5.1 mmol/L Chloride Level 104 98-107 mmol/L Carbon Dioxide Level 26 20-31 mmol/L Anion Gap 8 5-15 Blood Urea Nitrogen 26 H 9-23 mg/dL Creatinine 1.30 H 0.550-1.02 mg/dL Glomerular Filtration Rate Calc 46 >90 mL/min BUN/Creatinine Ratio 20.0 10.0-20.0 Serum Glucose 336 H 74-106 mg/dL Lactic Acid Level 1.3 0.4-2.0 mmol/L Calcium Level 9.4 8.7-10.4 mg/dL Phosphorus Level 4.0 2.4-5.1 mg/dL Magnesium Level 2.2 1.6-2.6 mg/dL Total Bilirubin 0.9 0.2-1.0 mg/dL Aspartate Amino Transferase (AST) 41 H 13-40 U/L Alanine Aminotransferase (ALT) 35 7-40 U/L Alkaline Phosphatase 84 46-116 U/L Total Protein 6.6 5.7-8.2 g/dL Albumin 4.1 3.2-4.8 g/dL Random Vancomycin Level 12.6 H 5-10 ug/mL Blood Gas Notified Whom corinne Reyes md Blood Gas Notified Time [id number] Blood Gas Notified By Naval Architect Specialist roseanna Sumner 05/29/24 09:11 05/28/24 06:00 05/27/24 12:32 05/27/24 04:42 Range/Units Prothrombin Time 10.3 9.3-11.8 sec Prothrombin Time INR 0.97 0.9-1.15 Hemoglobin A1c 5.7 <5.7 % A1C Vitamin B12 Level 112 L 211-911 pg/mL Thyroid Stimulating Hormone (TSH) 0.18 L 0.55-4.78 uIU/mL Free Thyroxine (T4) Calculated 1.07 0.89-1.76 ng/dL Free Triiodothyronine (T3) pg/mL 2.34 2.3-4.2 pg/mL Blood Gas EPAP 7 Blood Gas IPAP 12 Troponin I High Sensitivity 34 </=34 ng/L Test 05/26/24 23:19 05/26/24 21:15 05/26/24 20:50 Range/Units Urine Color Light-yellow Yellow Urine Clarity Clear Clear Urine pH 5.5 5.0-9.0 Urine Specific [place] 1.016 1.001-1.035 Urine Protein Negative Negative Urine Ketones Negative Negative Urine Blood Negative Negative /uL Urine Nitrite Negative Negative Urine Bilirubin Negative Negative Urine Urobilinogen Normal Negative mg/dL Urine Leukocyte Esterase Negative Negative /uL Urine RBC <1 0 - 4 /hpf Urine WBC 1 0 - 5 /hpf Urine Squamous Epithelial Cells Few <5 /hpf Urine Bacteria None seen None Seen /hpf Urine Glucose Normal Normal mg/dL Influenza Type A Antigen Negative Negative Influenza Type B Antigen Negative Negative SARS-CoV-2 Antigen (Rapid) Negative NEGATIVE D-Dimer, Quantitative 1.28 H 0.0-0.49 mg/L FEU B-Type Natriuretic Peptide 393.97 0-100 pg/mL Microbiology Date/Time Source Procedure Growth Status 05/29/24 20:30 Sputum Gram Stain - Final Resulted 05/29/24 20:30 Sputum Respiratory Culture - Preliminary Resulted 05/29/24 12:30 Urine - [place] Urine Culture - Preliminary Resulted 05/29/24 12:00 Blood Blood Culture - Preliminary NO GROWTH AFTER 24 HOURS OF INCUBATION. Resulted 05/29/24 06:30 Nose MRSA Screen - Final Complete Assessment Acute on chronic hypoxic respiratory failure. Atrial flutter. COPD exacerbation. Pneumonia. Morbid obesity. Acute on chronic systolic heart failure with reduced ejection fraction, EF 30%, NYHA II. CAD s/p JOE x4. IDDM with hyperglycemia. Plan/Recommendation I agree with your ongoing assessment and care of plan. Echocardiogram. Lipitor, Plavix. DVT and GI prophylactics. Diuretics with Lasix. Vasopressors for hemodynamic support. IV antibiotics as ordered. Additional plan as per the hospital course. Critical care time of 90 minutes provided to include time spent evaluation of patient at bedside, when appropriate patient/family education for diagnosis, treatment plan, review of pertinent medical information and discussion of care with specialty providers and PCP. Mechanical ventilator parameters, treatment and adjustments have personally been reviewed by me and treatment plan by pul plastics seasoner operator has also been reviewed. Plan discussed with: Other HUMBLE MCCAIN MD May 30, 2024 23:17
[2024-05-31] VITALS (104 sets, daily range): BP systolic 91–159; BP diastolic 25–90; PULSE 60–84; RESP 10–27; TEMP 97.9–99.7; O2SAT 88–100
[2024-05-31 03:51] LABS: Basophils # (auto) 0 10 ^3/uL (0-0.2); Basophils % (auto) 0.2 % (0.0-2.0); Eosinophils # (auto) 0 10 ^3/uL (0-0.8); Hematocrit 36.4 % (36.0-46.0); Hemoglobin 12.1 g/dL (12.2-16.2); Lymphocytes # (auto) 0.4 10 ^3/uL (0.4-5.4); Lymphocytes % (auto) 5.6 % (10.0-50.0); Mean Corpuscular Hemoglobin 30.9 pg (28.0-32.0); Mean Corpuscular Hgb Conc. 33.2 g/dL (32.0-36.0); Mean Corpuscular Volume 92.9 fL (80.0-100.0); Monocytes # (auto) 0.3 10 ^3/uL (0-1.3); Neutrophils # (auto) 5.8 10 ^3/uL (1.6-8.6); Neutrophils % (auto) 89.2 % (37.0-80.0); Nucleated Red Blood Cells % 0.1 %; Platelet Count (auto) 154 10^3/uL (140-450); Red Blood Cells 3.92 10^6/uL (4.0-5.20); Red Cell Distribution Width 14.9 % (11.8-14.3); White Blood Cell 6.5 10^3/uL (4.4-10.8)
[2024-05-31 04:02] LABS: Anion Gap 8 (5-15); Carbon Dioxide 30 mmol/L (20-31); Chloride 103 mmol/L (98-107); Potassium 3.6 mmol/L (3.5-5.1); Sodium 141 mmol/L (136-145)
[2024-05-31 04:03] LABS: Calcium 9.6 mg/dL (8.7-10.4)
[2024-05-31 04:08] LABS: BUN/Creatinine Ratio 20.4 (10.0-20.0); Blood Urea Nitrogen 23 mg/dL (9-23)
[2024-05-31 04:09] LABS: Magnesium 2.3 mg/dL (1.6-2.6)
[2024-05-31 04:10] LABS: Phosphorus 3.4 mg/dL (2.4-5.1)
[2024-05-31 04:21] LABS: Glucose 269 mg/dL (74-106)
--- NOTE | 2024-05-31 06:17 | DVH ---
Exam: US US GUIDED VASCULAR ACCESS Date: 05/29/2024 08:37 AM Clinical History: central line placement Comparison: None Findings: Targeted sonographic evaluation of the RIGHT IJ was obtained utilizing grayscale and color Doppler im aging. IMPRESSION: Sonographic assistance for central line placement. Please refer to procedural report for detailed fin dings.
--- NOTE | 2024-05-31 06:17 | DVH ---
CHEST RADIOGRAPH Indication: vented Technique: Single frontal view of the chest was obtained Comparison: XY CHEST PORTABLE on DOS: 05/30/24, XY CHEST PORTABLE on DOS: 05/29/24, XY CHEST PORTABLE o n DOS: 05/29/24, XY CHEST PORTABLE on DOS: 05/29/24, XY CHEST XRAY 1 VIEW on DOS: 05/27/24, XY CHEST POR TABLE on DOS: 05/30/24 FINDINGS: Lines and Tubes: The endotracheal tube terminates 3.4 cm above the danelle. Right central venous cath eter terminates in the superior vena cava. The enteric tube courses below the left hemidiaphragm and the tip extends outside the field of view. Lungs: Bilateral pulmonary interstitial and alveolar opacities. Pleura: Small left pleural effusion. No pneumothorax. Cardiomediastinal contours: Enlarged but stable. Bones: No acute osseous abnormality. IMPRESSION: 1. Stable position of the support lines and tubes. 2. Bilateral multifocal opacities, stable. Small left pleural effusion.
[2024-05-31 12:45] LABS: Base Excess 3.5 mmol/L (-2.0-3.0)
[2024-05-31 12:47] LABS: Base Excess 1.4 mmol/L (-2.0-3.0)
--- NOTE | 2024-05-31 14:28 | DVHPN2 ---
Assessment/Plan Assessment/Plan ICU progress note 63 yo F with COPD, HFrEF 30%, CAD s/p JOE x4 on plavix, IDDM admitted for shortness of breath. Initially found to be tachycardic tachypneic on bipap, improved after, placed on 2-3LPM, overnight, another episode of tachycardia, hypertension and tachypnea, placed back on bipap, altered and was intubated for hypoxic hypercapnic respiratory failure. seen by me today during rounds CPAP today, low NIV, not alert enough. will continue Physical exam sedated and intubated on mechanical ventilator s1 s2 RRR systolic murmur mechanical breath sounds bloody secretion in ETT abdomen distended trace LE edema, skin wrinkles labs imaging and echo reviewed Assessment and plan Distributive shock sedation related Acute on chronic hypoxic respiratory failure 2/2 PNA vs pulmonary edema? acute on chronic systolic heart failure with reduced ejection fraction, EF 30%, NYHA II CAD s/p JOE x4 on plavix IDDM with hyperglycemia panic attack vs LUÍS? Hemoptysis? Morbid obesity rule out secondary htn bronchial hemorrhage aflutter c/w mechanical ventilation c/w sedation, vent synchrony daily SAT SBT maintain map >65, levophed if needed c/w amio drip c/w lasix IV maintain -500 to 1L c/w zosyn klonazepam lantus ISS fsx4 restart TF, hold for cpap pulm consult appreciated hold lovenox for hemoptysis, c/w plavix miralax daily renal doppler urine metanephrine if HTN will start nicardipine drip CTAP strict IO daily weight follow BAL need to weight risk benefit of AC after extubation diet tube feeding hodl for cpap dvt ppx hold gi ppx protonix condition critical prognosis poor code status full code 67 minutes critical care time spend Plan discussed with: Daughter My Orders Orders - SINGH SALMERON MD Procedure Category Date Status Time * Wound Consult CONS 05/30/24 Transmitted Chest Portable XY 05/31/24 Resulted 04:00 Abg W/ Co-Ox RT 05/31/24 Logged 06:00 Insulin Lantus PHA 05/31/24 In Process (Glargine) (Lantus) 22:00 Abg W/ Co-Ox RT 05/31/24 Logged 11:00 Date of Service: May 31, 2024 Billing Provider: SINGH SALMERON MD Common Visit Codes: [id number] CARE 30-74 MIN SINGH SALMERON MD May 31, 2024 14:28
[2024-05-31] MEDS: VANCOMYCIN 1GM/250mL NS or D5W KIT IV SCH (21:19)
--- NOTE | 2024-05-31 21:47 | DVHPN2 ---
Progress Note - Dictate Date Seen: May 31, 2024 Medical Necessity Reason Pt with a Central, PICC or Fol: Yes The following are medically ne: Morel Catheter Reason for morel catheter: Strict I&O Subjective Patient was seen and evaluated in follow up in the ICU. Patient is intubated and sedated on ventilator. 35% FiO2. Patient receiving vasopressors for BP support. Patient is planned for CPAP trial today. ACCOUNT PLANNER 1.13, GLUC 288. Chest x-ray shows bilateral multifocal opacities and small left pleural effusion. vital signs Vital Sign Date Time Temp Pulse Resp B/P (MAP) Pulse Ox O2 Delivery O2 Flow Rate FiO2 05/31/24 10:24 69 11 130/40 (70) 100 35 05/31/24 08:00 Mechanical Ventilator+ 05/31/24 08:00 98.8 209.8 Total Intake and Output 05/30/24 05/30/24 05/31/24 15:00 23:00 07:00 Intake Total 762.57 ml 576.28 ml 567.87 ml Output Total 2500 ml 500 ml Balance 762.57 ml -1923.72 ml 67.87 ml medications Current Medications Medications Dose Ordered Sig/Jeanne Route Start Time Stop Time Status Last Admin Dose Admin Clopidogrel Bisulfate 75 mg DAILY PO 05/27/24 10:00 05/31/24 10:25 75 MG Enoxaparin Sodium 40 mg DAILY SC 05/27/24 10:00 05/31/24 10:24 40 MG Acetaminophen 650 mg Q6HP PRN PO 05/27/24 04:15 Atorvastatin Calcium 40 mg HS PO 05/27/24 22:00 05/30/24 21:49 40 MG Piperacillin Sod/ Tazobactam Sod 100 ml @ 25 mls/hr Q8HR IV 05/27/24 14:00 05/31/24 05:30 25 MLS/HR Albuterol 2.5 mg Q4HR NEB 05/27/24 18:00 05/31/24 10:24 2.5 MG Ipratropium [place] 0.5 mg Q4HR NEB 05/27/24 18:00 05/31/24 10:24 0.5 MG Norepinephrine Bitartrate 250 ml @ 3.75 mls/hr Q24H IV 05/29/24 05:15 05/30/24 16:34 11.25 MLS/HR Midazolam HCl 50 ml @ 1 mls/hr Q24H IV 05/29/24 05:15 05/31/24 04:30 8 MLS/HR Propofol 100 ml @ 3.36 mls/hr Q24H IV 05/29/24 06:30 05/29/24 16:59 10.08 MLS/HR Fentanyl Citrate 250 ml @ 2.5 mls/hr Q24H IV 05/29/24 06:30 05/30/24 22:33 17.5 MLS/HR Pantoprazole Sodium 40 mg DAILY IV 05/29/24 10:00 05/31/24 10:21 40 MG Clonazepam 1 mg Q12HR PO 05/29/24 10:00 05/30/24 21:49 1 MG Methylprednisolone Sodium Succinate 40 mg BID IV 05/29/24 10:00 05/31/24 10:19 40 MG Vancomycin HCl 0 ml @ 0 mls/hr UD IV 05/29/24 15:00 Diagnostic Test (Pha) 1 strip IQ4HR 05/29/24 20:00 05/31/24 03:30 1 STRIP Insulin Human Regular IQ4HR SC 05/29/24 20:00 05/31/24 08:11 9 UNITS Dextrose 50 ml UD PRN IV 05/29/24 17:30 Furosemide 40 mg DAILY IV 05/30/24 10:00 05/31/24 10:23 40 MG Vancomycin HCl 100 ml @ 100 mls/hr Q15H IV 05/30/24 13:00 05/31/24 03:47 100 MLS/HR Enteral Nutritional Formula 1,000 ml 30ML/HR GT 05/30/24 13:45 Insulin Glargine 15 units HS SC 05/31/24 22:00 objective GENERAL: Intubated on ventilator. Morbidly obese. LUNGS: Decreased breath sounds. CARDIOVASCULAR: Heart sounds are good. ABDOMEN: Soft. EXT: Trace BLE edema. laboratory and microbiology Laboratory Tests 05/31/24 03:08 Test 05/31/24 03:08 Range/Units Serum Glucose 269 H 74-106 mg/dL Problem List Acute on chronic hypoxic respiratory failure. Atrial flutter. COPD exacerbation. Pneumonia. Morbid obesity. Acute on chronic systolic heart failure with reduced ejection fraction, EF 30%, NYHA II. CAD s/p JOE x4. IDDM with hyperglycemia. Assessment/Plan Continued all current supportive medical care. Echocardiogram. Lipitor, Plavix. DVT and GI prophylactics. Diuretics with Lasix. Vasopressors for hemodynamic support. IV antibiotics as ordered. Additional plan as per the hospital course. Critical care time of 45 minutes provided to include time spent evaluation of patient at bedside, when appropriate patient/family education for diagnosis, treatment plan, review of pertinent medical information and discussion of care with specialty providers and PCP. Mechanical ventilator parameters, treatment and adjustments have personally been reviewed by me and treatment plan by canned food reconditioning inspector has also been reviewed. Dietary Evaluation Review Comments: 1. Provide the prescribed 2 gNa CCHO-60, Low Fat Lo Cholesterol diet when pt is off vent, EN available and passes a speech eval. Provide a Renal specific 40 g Protein restriction Diet if pt's kidney function further declines. 2. If GI accessible, EN is possible, consider a TF with Glucerna 40ml/hr (58g Pro, 1152 kcal) if PO feeding is not feasible. 3. Consider TPN per pharmacy if NPO >7 days and EN feeding is not feasible. Expected Outcomes/Goals: controlledd DM, gradual weight loss. Plan discussed with: Other HUMBLE MCCAIN MD May 31, 2024 11:39
[2024-05-31] MEDS: INSULIN LANTUS (GLARGINE) 1 /0.01ml (100units/ml) SC SCH (22:11)
--- NOTE | 2024-05-31 23:01 | DVHPN2 ---
Progress Note - Dictate Date Seen: May 31, 2024 Medical Necessity Reason Pt with a Central, PICC or Fol: Yes The following are medically ne: Morel Catheter Reason for morel catheter: Strict I&O Subjective Patient seen and examined at bedside. Intubated on mechanical ventilator. Overnight events reviewed. vital signs Vital Sign Date Time Temp Pulse Resp B/P (MAP) Pulse Ox O2 Delivery O2 Flow Rate FiO2 05/31/24 22:45 97.9 66 26 126/30 (62) 98 208.2 116/53 (74) 05/31/24 22:14 30 05/31/24 22:00 Mechanical Ventilator+ Total Intake and Output 05/30/24 05/30/24 05/31/24 15:00 23:00 07:00 Intake Total 762.57 ml 576.28 ml 633.22 ml Output Total 2500 ml 500 ml Balance 762.57 ml -1923.72 ml 133.22 ml medications Current Medications Medications Dose Ordered Sig/Jeanne Route Start Time Stop Time Status Last Admin Dose Admin Clopidogrel Bisulfate 75 mg DAILY PO 05/27/24 10:00 05/31/24 10:25 75 MG Enoxaparin Sodium 40 mg DAILY SC 05/27/24 10:00 05/31/24 10:24 40 MG Acetaminophen 650 mg Q6HP PRN PO 05/27/24 04:15 Atorvastatin Calcium 40 mg HS PO 05/27/24 22:00 05/31/24 21:45 40 MG Piperacillin Sod/ Tazobactam Sod 100 ml @ 25 mls/hr Q8HR IV 05/27/24 14:00 05/31/24 21:45 25 MLS/HR Albuterol 2.5 mg Q4HR NEB 05/27/24 18:00 05/31/24 22:13 2.5 MG Ipratropium [place] 0.5 mg Q4HR NEB 05/27/24 18:00 05/31/24 22:13 0.5 MG Norepinephrine Bitartrate 250 ml @ 3.75 mls/hr Q24H IV 05/29/24 05:15 05/31/24 14:19 3.75 MLS/HR Midazolam HCl 50 ml @ 1 mls/hr Q24H IV 05/29/24 05:15 05/31/24 21:06 3 MLS/HR Propofol 100 ml @ 3.36 mls/hr Q24H IV 05/29/24 06:30 05/29/24 16:59 10.08 MLS/HR Fentanyl Citrate 250 ml @ 2.5 mls/hr Q24H IV 05/29/24 06:30 05/30/24 22:33 17.5 MLS/HR Pantoprazole Sodium 40 mg DAILY IV 05/29/24 10:00 05/31/24 10:21 40 MG Clonazepam 1 mg Q12HR PO 05/29/24 10:00 05/31/24 21:45 1 MG Methylprednisolone Sodium Succinate 40 mg BID IV 05/29/24 10:00 05/31/24 21:45 40 MG Vancomycin HCl 0 ml @ 0 mls/hr UD IV 05/29/24 15:00 Diagnostic Test (Pha) 1 strip IQ4HR 05/29/24 20:00 05/31/24 20:58 1 STRIP Insulin Human Regular IQ4HR SC 05/29/24 20:00 05/31/24 20:59 9 UNITS Dextrose 50 ml UD PRN IV 05/29/24 17:30 Furosemide 40 mg DAILY IV 05/30/24 10:00 05/31/24 10:23 40 MG Enteral Nutritional Formula 1,000 ml 30ML/HR GT 05/30/24 13:45 Insulin Glargine 15 units HS SC 05/31/24 22:00 05/31/24 22:11 15 UNITS Vancomycin HCl 250 ml @ 250 mls/hr Q12HR@0900,2100 IV 05/31/24 21:00 05/31/24 21:19 250 MLS/HR objective Gen.: Patient lying in bed in medical ICU. Intubated on mechanical ventilator. Head: Normocephalic, atraumatic. Eyes: PERRLA. Ears: Normal external anatomy. Throat: Endotracheal tube and orogastric tube in place. Neck: Supple, trachea midline. Chest: Transmitted breath sounds bilaterally. Decreased air entry bilaterally. No wheezing. Bibasilar crackles. Cardiovascular: Positive S1, positive S2. Regular rate and rhythm. Abdomen: Positive bowel sounds in all 4 quadrants. Soft, nontender, nondistended. : Morel in place. Normal external genitalia. Rectal: Deferred. Skin: Warm, dry. Intact. Extremities: 2+ radial pulses bilaterally. No lower extremity edema. Neuro: Off sedation laboratory and microbiology Laboratory Tests 05/31/24 18:12 05/31/24 03:08 Test 05/31/24 03:08 Range/Units Serum Glucose 269 H 74-106 mg/dL Assessment/Plan Impression: Acute on chronic hypoxic respiratory failure On mechanical ventilator Pulmonary hemorrhage COPD exacerbation CHF exacerbation Pneumonia, likely gram negative Morbid obesity Events: SBT - on CPAP with PS 12, PEEP of 5. Off sedation On pressors for hemodynamic support Levophed 6 mcg/min Titrate to keep mean arterial pressure greater than 65 mmHg. Vent settings; on AC mode; RR 26, VT 450, PEEP 5, FiO2 35% ABG reviewed, compensated CXR reviewed, demonstrates devices in place. Bilateral multifocal opacities, stable. Small left pleural effusion. On amiodarone drip Diurese w/ Lasix as tolerated Monitor renal function Monitor electrolytes. Supplement as necessary. Labs and imaging reviewed. Rest of plan as noted below. Plan: s/p intubation on mechanical ventilator. On AC mode; RR 26, VT 450, PEEP 5, FiO2 35% Titrate FIO2 to keep O2 saturation above 90%. VAP bundle. Daily ABG and CXR while intubated Off sedation S/p bronchoscopy with BAL on 05/29/24 - see separate procedure note for details. S/p placement of radial arterial line. Continue bronchodilators. Continue antibiotics. Continue steroids On pressors (Levophed) for hemodynamic support Titrate to keep mean arterial pressure greater than 65 mmHg. Monitor renal function Monitor electrolytes. Supplement as necessary. Monitor ins and outs. Morbid obesity- complicates all care. GI prophylaxis. DVT prophylaxis. Prognosis: Poor given patient's multiple co-morbidities. Condition: Critical Rest of plan per hospitalist and other consultants. A total of 35 minutes of critical care time was spent reviewing the patient record, examining the patient, making a diagnostic and therapeutic plan, discussing this plan with the medical personnel, following up on diagnostic studies and following the patient for clinical stability excluding any and all procedures. At least 50% of this time was spent in direct, [id number] contact. Thank you Dr. Reyes, for allowing me to participate in this patient's care. Further recommendations will depend on the patient's clinical course. Please do not hesitate to contact me if you have any questions or concerns. This medical document was created using an electronic medical record system with Dragon computerized dictation system. Although these documentations are being carefully reviewed, there may still be some phonetic and typographical changes. The errors are purely typographical, due to imperfection on the software program, and do not reflect any compromise in the patient's medical care. Dietary Evaluation Review Comments: 1. Provide the prescribed 2 gNa CCHO-60, Low Fat Lo Cholesterol diet when pt is off vent, EN available and passes a speech eval. Provide a Renal specific 40 g Protein restriction Diet if pt's kidney function further declines. 2. If GI accessible, EN is possible, consider a TF with Glucerna 40ml/hr (58g Pro, 1152 kcal) if PO feeding is not feasible. 3. Consider TPN per pharmacy if NPO >7 days and EN feeding is not feasible. Expected Outcomes/Goals: controlledd DM, gradual weight loss. Plan discussed with: Other (MICHELLE Gallegos) Critical Care Time(min): 35 MARYANNE ELLIOTT MD May 31, 2024 23:01
[2024-06-01] VITALS (107 sets, daily range): BP systolic 19–247; BP diastolic 30–195; PULSE 57–96; RESP 12–40; TEMP 97.5–99.1; O2SAT 93–100
[2024-06-01 04:46] LABS: Alanine Aminotransferase 22 U/L (7-40); Albumin 3.9 g/dL (3.2-4.8); Alkaline Phosphatase 66 U/L (46-116); Anion Gap 8 (5-15); Aspartate Aminotransferase 21 U/L (13-40); BUN/Creatinine Ratio 27.8 (10.0-20.0); Calcium 9.7 mg/dL (8.7-10.4); Chloride 100 mmol/L (98-107); Magnesium 2.2 mg/dL (1.6-2.6); Sodium 140 mmol/L (136-145)
[2024-06-01 04:47] LABS: Bilirubin, Total 0.5 mg/dL (0.2-1.0); Phosphorus 3.9 mg/dL (2.4-5.1)
[2024-06-01 04:53] LABS: Blood Urea Nitrogen 27 mg/dL (9-23); Carbon Dioxide 32 mmol/L (20-31); Glucose 274 mg/dL (74-106); Potassium 3.2 mmol/L (3.5-5.1)
[2024-06-01 04:54] LABS: Basophils # (auto) 0 10 ^3/uL (0-0.2); Eosinophils # (auto) 0 10 ^3/uL (0-0.8); Hematocrit 35.2 % (36.0-46.0); Hemoglobin 11.5 g/dL (12.2-16.2); Lymphocytes # (auto) 0.4 10 ^3/uL (0.4-5.4); Lymphocytes % (auto) 10.4 % (10.0-50.0); Mean Corpuscular Hemoglobin 30.3 pg (28.0-32.0); Mean Corpuscular Hgb Conc. 32.8 g/dL (32.0-36.0); Mean Corpuscular Volume 92.2 fL (80.0-100.0); Monocytes # (auto) 0.2 10 ^3/uL (0-1.3); Monocytes % (auto) 5.8 % (0.0-12.0); Neutrophils % (auto) 83.8 % (37.0-80.0); Platelet Count (auto) 117 10^3/uL (140-450); Red Blood Cells 3.81 10^6/uL (4.0-5.20); Red Cell Distribution Width 14.8 % (11.8-14.3); White Blood Cell 3.6 10^3/uL (4.4-10.8)
[2024-06-01] MEDS: POTASSIUM CHL 20MEQ/100ML 100 ML IV SCH (05:30)
--- NOTE | 2024-06-01 05:36 | DVH ---
CHEST RADIOGRAPH Indication: VENTILATED Technique: Single frontal view of the chest was obtained COMPARISON: XY CHEST PORTABLE on DOS: 05/31/24, XY CHEST PORTABLE on DOS: 05/30/24, XY CHEST PORTABLE o n DOS: 05/29/24, XY CHEST PORTABLE on DOS: 05/29/24, XY CHEST PORTABLE on DOS: 05/29/24 FINDINGS: Lines and Tubes: Endotracheal tube, enteric catheter and right central venous catheter in satisfactor y position. Lungs: Congestion Pleura: No effusion. No pneumothorax. Cardiomediastinal contours: Cardiomegaly Bones: Unremarkable IMPRESSION: Lines and tubes in satisfactory position. No significant interval change.
[2024-06-01 06:01] LABS: Base Excess 4.4 mmol/L (-2.0-3.0)
--- NOTE | 2024-06-01 15:13 | DVHPN2 ---
Progress Note - Dictate Date Seen: Jun 01, 2024 Medical Necessity Reason Pt with a Central, PICC or Fol: Yes The following are medically ne: Morel Catheter Reason for morel catheter: Strict I&O Subjective Patient was seen and evaluated in follow up in the ICU. Patient is intubated and sedated on ventilator. 30% FiO2. CPAP trial was terminated yesterday due to low NIV and the patient not being alert enough. WBC 3.6, K 3.2, CO2 32, BUN 27. vital signs Vital Sign Date Time Temp Pulse Resp B/P (MAP) Pulse Ox O2 Delivery O2 Flow Rate FiO2 06/01/24 10:36 65 20 95/56 (69) 93 30 06/01/24 10:00 Mechanical Ventilator+ 06/01/24 08:00 98.8 98.8 Total Intake and Output 05/31/24 05/31/24 06/01/24 15:00 23:00 07:00 Intake Total 340.47 ml 588.28 ml 364.28 ml Output Total 1300 ml 500 ml Balance 340.47 ml -711.72 ml -135.72 ml medications Current Medications Medications Dose Ordered Sig/Jeanne Route Start Time Stop Time Status Last Admin Dose Admin Clopidogrel Bisulfate 75 mg DAILY PO 05/27/24 10:00 05/31/24 10:25 75 MG Enoxaparin Sodium 40 mg DAILY SC 05/27/24 10:00 06/01/24 08:58 40 MG Acetaminophen 650 mg Q6HP PRN PO 05/27/24 04:15 Atorvastatin Calcium 40 mg HS PO 05/27/24 22:00 05/31/24 21:45 40 MG Piperacillin Sod/ Tazobactam Sod 100 ml @ 25 mls/hr Q8HR IV 05/27/24 14:00 06/01/24 05:30 25 MLS/HR Albuterol 2.5 mg Q4HR NEB 05/27/24 18:00 06/01/24 10:36 2.5 MG Ipratropium [place] 0.5 mg Q4HR NEB 05/27/24 18:00 06/01/24 10:36 0.5 MG Norepinephrine Bitartrate 250 ml @ 3.75 mls/hr Q24H IV 05/29/24 05:15 05/31/24 14:19 3.75 MLS/HR Midazolam HCl 50 ml @ 1 mls/hr Q24H IV 05/29/24 05:15 06/01/24 02:42 7 MLS/HR Propofol 100 ml @ 3.36 mls/hr Q24H IV 05/29/24 06:30 05/29/24 16:59 10.08 MLS/HR Fentanyl Citrate 250 ml @ 2.5 mls/hr Q24H IV 05/29/24 06:30 05/30/24 22:33 17.5 MLS/HR Pantoprazole Sodium 40 mg DAILY IV 05/29/24 10:00 06/01/24 08:58 40 MG Clonazepam 1 mg Q12HR PO 05/29/24 10:00 05/31/24 21:45 1 MG Methylprednisolone Sodium Succinate 40 mg BID IV 05/29/24 10:00 06/01/24 08:57 40 MG Vancomycin HCl 0 ml @ 0 mls/hr UD IV 05/29/24 15:00 Diagnostic Test (Pha) 1 strip IQ4HR 05/29/24 20:00 06/01/24 11:17 1 STRIP Insulin Human Regular IQ4HR SC 05/29/24 20:00 06/01/24 11:19 3 UNITS Dextrose 50 ml UD PRN IV 05/29/24 17:30 Furosemide 40 mg DAILY IV 05/30/24 10:00 06/01/24 08:59 40 MG Enteral Nutritional Formula 1,000 ml 30ML/HR GT 05/30/24 13:45 Insulin Glargine 15 units HS SC 05/31/24 22:00 05/31/24 22:11 15 UNITS Vancomycin HCl 250 ml @ 250 mls/hr Q12HR@0900,2100 IV 05/31/24 21:00 06/01/24 08:57 250 MLS/HR Dexmedetomidine HCl 400 mcg/ Dextrose 100 ml @ 5.43 mls/hr [id number] IV 06/01/24 09:00 06/01/24 09:14 5.43 MLS/HR objective GENERAL: Intubated on ventilator. Morbidly obese. LUNGS: Decreased breath sounds. CARDIOVASCULAR: Heart sounds are good. ABDOMEN: Soft. EXT: Trace BLE edema. laboratory and microbiology Laboratory Tests 06/01/24 03:25 Test 06/01/24 03:25 Range/Units Serum Glucose 274 H 74-106 mg/dL Problem List Acute on chronic hypoxic respiratory failure. Atrial flutter. COPD exacerbation. Pneumonia. Morbid obesity. Acute on chronic systolic heart failure with reduced ejection fraction, EF 30%, NYHA II. CAD s/p JOE x4. IDDM with hyperglycemia. Assessment/Plan Continued all current supportive medical care. Echocardiogram. Lipitor, Plavix. DVT and GI prophylactics. Diuretics with Lasix. Vasopressors for hemodynamic support. IV antibiotics as ordered. Additional plan as per the hospital course. Critical care time of 45 minutes provided to include time spent evaluation of patient at bedside, when appropriate patient/family education for diagnosis, treatment plan, review of pertinent medical information and discussion of care with specialty providers and PCP. Mechanical ventilator parameters, treatment and adjustments have personally been reviewed by me and treatment plan by freelance patternmaker has also been reviewed. Dietary Evaluation Review Comments: 1. Provide the prescribed 2 gNa CCHO-60, Low Fat Lo Cholesterol diet when pt is off vent, EN available and passes a speech eval. Provide a Renal specific 40 g Protein restriction Diet if pt's kidney function further declines. 2. If GI accessible, EN is possible, consider a TF with Glucerna 40ml/hr (58g Pro, 1152 kcal) if PO feeding is not feasible. 3. Consider TPN per pharmacy if NPO >7 days and EN feeding is not feasible. Expected Outcomes/Goals: controlledd DM, gradual weight loss. Plan discussed with: HUMBLE Mckinnon MD Jun 01, 2024 12:01
[2024-06-01 15:44] LABS: Base Excess 8.8 mmol/L (-2.0-3.0)
[2024-06-01] MEDS ORDERED: hydrALAZINE HCL 20 MG/ML VL IV PRN (15:45)
--- NOTE | 2024-06-01 20:30 | DVHPN2 ---
Reviewed: Care Plan, H&P, Labs, Medications, Previous Orders, Radiology Changes from previous H/P or p: No Changes General: Per HPI Objective Vitals Vital Signs Date Time Temp Pulse Resp B/P (MAP) Pulse Ox O2 Delivery O2 Flow Rate FiO2 06/01/24 19:45 64 26 117/55 (75) 96 06/01/24 19:45 30 06/01/24 18:00 Mechanical Ventilator+ 06/01/24 16:00 98.2 98.2 Intake/Output Intake and Output 06/01/24 07:00 Intake Total 1293.03 ml Output Total 1800 ml Balance -506.97 ml Intake Oral 75 ml IV Total 1218.03 ml Output Urine Total 1800 ml Medications Current Medications Medications Dose Ordered Sig/Jeanne Route Start Time Stop Time Status Last Admin Dose Admin Clopidogrel Bisulfate 75 mg DAILY PO 05/27/24 10:00 05/31/24 10:25 75 MG Enoxaparin Sodium 40 mg DAILY SC 05/27/24 10:00 06/01/24 08:58 40 MG Acetaminophen 650 mg Q6HP PRN PO 05/27/24 04:15 Atorvastatin Calcium 40 mg HS PO 05/27/24 22:00 05/31/24 21:45 40 MG Piperacillin Sod/ Tazobactam Sod 100 ml @ 25 mls/hr Q8HR IV 05/27/24 14:00 06/01/24 14:12 25 MLS/HR Albuterol 2.5 mg Q4HR NEB 05/27/24 18:00 06/01/24 17:50 2.5 MG Ipratropium [place] 0.5 mg Q4HR NEB 05/27/24 18:00 06/01/24 17:50 0.5 MG Norepinephrine Bitartrate 250 ml @ 3.75 mls/hr Q24H IV 05/29/24 05:15 05/31/24 14:19 3.75 MLS/HR Midazolam HCl 50 ml @ 1 mls/hr Q24H IV 05/29/24 05:15 06/01/24 02:42 7 MLS/HR Propofol 100 ml @ 3.36 mls/hr Q24H IV 05/29/24 06:30 05/29/24 16:59 10.08 MLS/HR Fentanyl Citrate 250 ml @ 2.5 mls/hr Q24H IV 05/29/24 06:30 05/30/24 22:33 17.5 MLS/HR Pantoprazole Sodium 40 mg DAILY IV 05/29/24 10:00 06/01/24 08:58 40 MG Clonazepam 1 mg Q12HR PO 05/29/24 10:00 05/31/24 21:45 1 MG Methylprednisolone Sodium Succinate 40 mg BID IV 05/29/24 10:00 06/01/24 08:57 40 MG Vancomycin HCl 0 ml @ 0 mls/hr UD IV 05/29/24 15:00 Diagnostic Test (Pha) 1 strip IQ4HR 05/29/24 20:00 06/01/24 20:19 1 STRIP Insulin Human Regular IQ4HR SC 05/29/24 20:00 06/01/24 20:19 6 UNITS Dextrose 50 ml UD PRN IV 05/29/24 17:30 Furosemide 40 mg DAILY IV 05/30/24 10:00 06/01/24 08:59 40 MG Enteral Nutritional Formula 1,000 ml 30ML/HR GT 05/30/24 13:45 Insulin Glargine 15 units HS SC 05/31/24 22:00 05/31/24 22:11 15 UNITS Vancomycin HCl 250 ml @ 250 mls/hr Q12HR@0900,2100 IV 05/31/24 21:00 06/01/24 08:57 250 MLS/HR Dexmedetomidine HCl 400 mcg/ Dextrose 100 ml @ 5.43 mls/hr [id number] IV 06/01/24 09:00 06/01/24 19:19 10.86 MLS/HR Hydralazine HCl 10 mg Q6HP PRN IV 06/01/24 15:45 Laboratory Results Laboratory Tests 06/01/24 03:25 06/01/24 13:15 Chemistry Test 06/01/24 03:25 Albumin 3.9 g/dL (3.2-4.8) Calcium Level 9.7 mg/dL (8.7-10.4) Magnesium Level 2.2 mg/dL (1.6-2.6) Phosphorus Level 3.9 mg/dL (2.4-5.1) Total Protein 6.0 g/dL (5.7-8.2) LFT Test 06/01/24 03:25 Alanine Aminotransferase (ALT) 22 U/L (7-40) Alkaline Phosphatase 66 U/L (46-116) Aspartate Amino Transferase (AST) 21 U/L (13-40) Total Bilirubin 0.5 mg/dL (0.2-1.0) Urinalysis Test 05/26/24 23:19 Urine Color Light-yellow (Yellow) Urine Clarity Clear (Clear) Urine pH 5.5 (5.0-9.0) Urine Specific [place] 1.016 (1.001-1.035) Urine Protein Negative (Negative) Urine Ketones Negative (Negative) Urine Blood Negative /uL (Negative) Urine Nitrite Negative (Negative) Urine Bilirubin Negative (Negative) Urine Urobilinogen Normal mg/dL (Negative) Urine Leukocyte Esterase Negative /uL (Negative) Urine RBC <1 /hpf (0 - 4) Urine WBC 1 /hpf (0 - 5) Urine Squamous Epithelial Cells Few /hpf (<5) Urine Bacteria None seen /hpf (None Seen) Urine Glucose Normal mg/dL (Normal) Blood Gas Results Test 06/01/24 05:55 06/01/24 15:02 Arterial Blood pH 7.453 (7.350-7.450) 7.436 (7.350-7.450) FiO2 % 30.0 30.0 Microbiology Microbiology Date/Time Source Procedure Growth Status 05/29/24 20:30 Sputum Gram Stain - Final Complete 05/29/24 20:30 Sputum Respiratory Culture - Final Complete 05/29/24 12:30 Urine - [place] Urine Culture - Final Complete 05/29/24 12:00 Blood Blood Culture - Preliminary NO GROWTH AFTER 72 HOURS OF INCUBATION. Resulted 05/29/24 06:30 Nose MRSA Screen - Final Complete Assessment/Plan Assessment/Plan 63 yo F with COPD, HFrEF 30%, CAD s/p JOE x4 on plavix, IDDM admitted for shortness of breath. Initially found to be tachycardic tachypneic on bipap, improved after, placed on 2-3LPM, overnight, another episode of tachycardia, hypertension and tachypnea, placed back on bipap, altered and was intubated for hypoxic hypercapnic respiratory failure. seen by me today during rounds CPAP today Physical exam sedated and intubated on mechanical ventilator s1 s2 RRR systolic murmur mechanical breath sounds bloody secretion in ETT abdomen distended trace LE edema, skin wrinkles labs imaging and echo reviewed Assessment and plan Distributive shock sedation related Acute on chronic hypoxic respiratory failure 2/2 PNA vs pulmonary edema? acute on chronic systolic heart failure with reduced ejection fraction, EF 30%, NYHA II CAD s/p JOE x4 on plavix IDDM with hyperglycemia panic attack vs LUÍS? Hemoptysis? Morbid obesity rule out secondary htn bronchial hemorrhage aflutter c/w mechanical ventilation c/w sedation, vent synchrony daily SAT SBT maintain map >65, levophed if needed c/w amio drip c/w lasix IV maintain -500 to 1L c/w zosyn klonazepam lantus ISS fsx4 restart TF, hold for cpap pulm consult appreciated hold lovenox for hemoptysis, c/w plavix miralax daily renal doppler urine metanephrine if HTN will start nicardipine drip CTAP strict IO daily weight follow BAL diet tube feeding hodl for cpap dvt ppx hold gi ppx protonix code status full code Plan discussed with: Other (nursing staff) Date of Service: Jun 01, 2024 Billing Provider: LAMAR GÓMEZ DO Common Visit Codes: [id number] CARE 30-74 MIN, [id number] CARE-EACH +30MIN LAMAR GÓMEZ DO Jun 01, 2024 20:30
--- NOTE | 2024-06-01 23:24 | DVHPN2 ---
Progress Note - Dictate Date Seen: Jun 01, 2024 Medical Necessity Reason Pt with a Central, PICC or Fol: Yes The following are medically ne: Morel Catheter Reason for morel catheter: Strict I&O Subjective Patient seen and examined at bedside. Intubated on mechanical ventilator. Overnight events reviewed. vital signs Vital Sign Date Time Temp Pulse Resp B/P (MAP) Pulse Ox O2 Delivery O2 Flow Rate FiO2 06/01/24 23:00 65 26 113/50 95 30 06/01/24 22:00 Mechanical Ventilator+ 06/01/24 20:00 99.1 99.1 Total Intake and Output 05/31/24 05/31/24 06/01/24 14:59 22:59 06:59 Intake Total 360.41 ml 583.28 ml 394.53 ml Output Total 1300 ml 500 ml Balance 360.41 ml -716.72 ml -105.47 ml medications Current Medications Medications Dose Ordered Sig/Jeanne Route Start Time Stop Time Status Last Admin Dose Admin Clopidogrel Bisulfate 75 mg DAILY PO 05/27/24 10:00 05/31/24 10:25 75 MG Enoxaparin Sodium 40 mg DAILY SC 05/27/24 10:00 06/01/24 08:58 40 MG Acetaminophen 650 mg Q6HP PRN PO 05/27/24 04:15 Atorvastatin Calcium 40 mg HS PO 05/27/24 22:00 05/31/24 21:45 40 MG Piperacillin Sod/ Tazobactam Sod 100 ml @ 25 mls/hr Q8HR IV 05/27/24 14:00 06/01/24 21:35 25 MLS/HR Albuterol 2.5 mg Q4HR NEB 05/27/24 18:00 06/01/24 21:52 2.5 MG Ipratropium [place] 0.5 mg Q4HR NEB 05/27/24 18:00 06/01/24 21:52 0.5 MG Norepinephrine Bitartrate 250 ml @ 3.75 mls/hr Q24H IV 05/29/24 05:15 05/31/24 14:19 3.75 MLS/HR Midazolam HCl 50 ml @ 1 mls/hr Q24H IV 05/29/24 05:15 06/01/24 02:42 7 MLS/HR Propofol 100 ml @ 3.36 mls/hr Q24H IV 05/29/24 06:30 05/29/24 16:59 10.08 MLS/HR Fentanyl Citrate 250 ml @ 2.5 mls/hr Q24H IV 05/29/24 06:30 05/30/24 22:33 17.5 MLS/HR Pantoprazole Sodium 40 mg DAILY IV 05/29/24 10:00 06/01/24 08:58 40 MG Clonazepam 1 mg Q12HR PO 05/29/24 10:00 05/31/24 21:45 1 MG Methylprednisolone Sodium Succinate 40 mg BID IV 05/29/24 10:00 06/01/24 21:35 40 MG Vancomycin HCl 0 ml @ 0 mls/hr UD IV 05/29/24 15:00 Diagnostic Test (Pha) 1 strip IQ4HR 05/29/24 20:00 06/01/24 20:19 1 STRIP Insulin Human Regular IQ4HR SC 05/29/24 20:00 06/01/24 20:19 6 UNITS Dextrose 50 ml UD PRN IV 05/29/24 17:30 Furosemide 40 mg DAILY IV 05/30/24 10:00 06/01/24 08:59 40 MG Enteral Nutritional Formula 1,000 ml 30ML/HR GT 05/30/24 13:45 Insulin Glargine 15 units HS SC 05/31/24 22:00 06/01/24 21:50 15 UNITS Vancomycin HCl 250 ml @ 250 mls/hr Q12HR@0900,2100 IV 05/31/24 21:00 06/01/24 20:34 250 MLS/HR Dexmedetomidine HCl 400 mcg/ Dextrose 100 ml @ 5.43 mls/hr [id number] IV 06/01/24 09:00 06/01/24 19:19 10.86 MLS/HR Hydralazine HCl 10 mg Q6HP PRN IV 06/01/24 15:45 objective Gen.: Patient lying in bed in medical ICU. Intubated on mechanical ventilator. Head: Normocephalic, atraumatic. Eyes: PERRLA. Ears: Normal external anatomy. Throat: Endotracheal tube and orogastric tube in place. Neck: Supple, trachea midline. Chest: Transmitted breath sounds bilaterally. Decreased air entry bilaterally. No wheezing. Bibasilar crackles. Cardiovascular: Positive S1, positive S2. Regular rate and rhythm. Abdomen: Positive bowel sounds in all 4 quadrants. Soft, nontender, nondistended. : Morel in place. Normal external genitalia. Rectal: Deferred. Skin: Warm, dry. Intact. Extremities: 2+ radial pulses bilaterally. No lower extremity edema. Neuro: Off sedation laboratory and microbiology Laboratory Tests 06/01/24 13:15 06/01/24 03:25 Test 06/01/24 03:25 Range/Units Serum Glucose 274 H 74-106 mg/dL Assessment/Plan Impression: Acute on chronic hypoxic respiratory failure On mechanical ventilator Pulmonary hemorrhage COPD exacerbation CHF exacerbation Pneumonia, likely gram negative Morbid obesity Events: On vent support Vent settings; on AC mode; RR 26, VT 450, PEEP 5, FiO2 30% Off sedation Precedex drip for agitation Off Levophed, hemodynamically stable. CXR reviewed, demonstrates devices in place. Pulmonary congestion. No pleural effusion or pneumothorax. Continue antibiotics On amiodarone drip Diurese w/ Lasix as tolerated Monitor renal function Monitor electrolytes. Supplement as necessary. Potassium supplementation Mag of 2.2 Labs and imaging reviewed. Rest of plan as noted below. Plan: s/p intubation on mechanical ventilator. On AC mode; RR 26, VT 450, PEEP 5, FiO2 30% Titrate FIO2 to keep O2 saturation above 90%. VAP bundle. Daily ABG and CXR while intubated Off sedation S/p bronchoscopy with BAL on 05/29/24 - see separate procedure note for details. S/p placement of radial arterial line. Continue bronchodilators. Continue antibiotics. Continue steroids Pressors if necessary for hemodynamic support Titrate to keep mean arterial pressure greater than 65 mmHg. Monitor renal function Monitor electrolytes. Supplement as necessary. Monitor ins and outs. Morbid obesity- complicates all care. GI prophylaxis. DVT prophylaxis. Prognosis: Poor given patient's multiple co-morbidities. Condition: Critical Rest of plan per hospitalist and other consultants. A total of 35 minutes of critical care time was spent reviewing the patient record, examining the patient, making a diagnostic and therapeutic plan, discussing this plan with the medical personnel, following up on diagnostic studies and following the patient for clinical stability excluding any and all procedures. At least 50% of this time was spent in direct, [id number] contact. Thank you Dr. Reyes, for allowing me to participate in this patient's care. Further recommendations will depend on the patient's clinical course. Please do not hesitate to contact me if you have any questions or concerns. This medical document was created using an electronic medical record system with [employer] dictation system. Although these documentations are being carefully reviewed, there may still be some phonetic and typographical changes. The errors are purely typographical, due to imperfection on the software program, and do not reflect any compromise in the patient's medical care. Dietary Evaluation Review Comments: 1. Provide the prescribed 2 gNa CCHO-60, Low Fat Lo Cholesterol diet when pt is off vent, EN available and passes a speech eval. Provide a Renal specific 40 g Protein restriction Diet if pt's kidney function further declines. 2. If GI accessible, EN is possible, consider a TF with Glucerna 40ml/hr (58g Pro, 1152 kcal) if PO feeding is not feasible. 3. Consider TPN per pharmacy if NPO >7 days and EN feeding is not feasible. Expected Outcomes/Goals: controlledd DM, gradual weight loss. Plan discussed with: Other (MICHELLE Richey) Critical Care Time(min): 35 MARYANNE ELLIOTT MD Jun 01, 2024 23:24
[2024-06-02] VITALS (89 sets, daily range): BP systolic 99–146; BP diastolic 50–78; PULSE 57–77; RESP 10–29; TEMP 97.3–98.4; O2SAT 91–100
[2024-06-02 03:52] LABS: Basophils # (auto) 0 10 ^3/uL (0-0.2); Eosinophils # (auto) 0 10 ^3/uL (0-0.8); Hematocrit 35.1 % (36.0-46.0); Hemoglobin 11.6 g/dL (12.2-16.2); Lymphocytes # (auto) 0.4 10 ^3/uL (0.4-5.4); Lymphocytes % (auto) 13.5 % (10.0-50.0); Mean Corpuscular Hemoglobin 30.2 pg (28.0-32.0); Mean Corpuscular Hgb Conc. 33.1 g/dL (32.0-36.0); Mean Corpuscular Volume 91.2 fL (80.0-100.0); Monocytes # (auto) 0.2 10 ^3/uL (0-1.3); Monocytes % (auto) 7.3 % (0.0-12.0); Neutrophils # (auto) 2.3 10 ^3/uL (1.6-8.6); Neutrophils % (auto) 79.2 % (37.0-80.0); Nucleated Red Blood Cells % 0.1 %; Platelet Count (auto) 126 10^3/uL (140-450); Red Blood Cells 3.85 10^6/uL (4.0-5.20); Red Cell Distribution Width 14.7 % (11.8-14.3); White Blood Cell 2.9 10^3/uL (4.4-10.8)
[2024-06-02 04:43] LABS: Chloride 102 mmol/L (98-107); Potassium 3.8 mmol/L (3.5-5.1); Sodium 140 mmol/L (136-145)
[2024-06-02 04:44] LABS: Anion Gap 6 (5-15)
[2024-06-02 04:45] LABS: Calcium 9.3 mg/dL (8.7-10.4)
[2024-06-02 04:50] LABS: BUN/Creatinine Ratio 29.9 (10.0-20.0)
[2024-06-02 05:07] LABS: Blood Urea Nitrogen 29 mg/dL (9-23); Carbon Dioxide 32 mmol/L (20-31); Glucose 248 mg/dL (74-106)
--- NOTE | 2024-06-02 05:36 | DVH ---
CHEST RADIOGRAPH Indication: VENTILATED Technique: Single frontal view of the chest was obtained COMPARISON: XY CHEST PORTABLE on DOS: 06/01/24, XY CHEST PORTABLE on DOS: 05/31/24, XY CHEST PORTABLE o n DOS: 05/30/24, XY CHEST PORTABLE on DOS: 05/29/24, XY CHEST PORTABLE on DOS: 05/29/24 FINDINGS: Lines and Tubes: Unchanged Lungs: Subsegmental atelectasis in the left lower lobe. Pleura: No effusion. No pneumothorax. Cardiomediastinal contours: Remain enlarged. Bones: Unremarkable IMPRESSION: 1. Subsegmental atelectasis in the left lower lobe. Developing pneumonia can have similar appearance.
[2024-06-02 07:22] LABS: Base Excess 7.5 mmol/L (-2.0-3.0)
[2024-06-02] MEDS ORDERED: MORPHINE SULFATE INJ 2 MG/ml SYRG IV PRN (18:00)
--- NOTE | 2024-06-02 19:23 | DVHPN2 ---
Reviewed: Care Plan, H&P, Labs, Medications, Previous Orders, Radiology Changes from previous H/P or p: No Changes General: Per HPI Objective Vitals Vital Signs Date Time Temp Pulse Resp B/P (MAP) Pulse Ox O2 Delivery O2 Flow Rate FiO2 06/02/24 18:20 98.0 71 18 127/67 (87) 92 98.0 06/02/24 17:32 Nasal Cannula* 4 36 Intake/Output Intake and Output 06/02/24 07:00 Intake Total 1644.465 ml Output Total 1950 ml Balance -305.535 ml Intake Oral 0 ml IV Total 1644.465 ml Output Urine Total 1950 ml # Bowel Movements 1 Medications Current Medications Medications Dose Ordered Sig/Jeanne Route Start Time Stop Time Status Last Admin Dose Admin Clopidogrel Bisulfate 75 mg DAILY PO 05/27/24 10:00 05/31/24 10:25 75 MG Enoxaparin Sodium 40 mg DAILY SC 05/27/24 10:00 06/02/24 10:00 40 MG Acetaminophen 650 mg Q6HP PRN PO 05/27/24 04:15 Atorvastatin Calcium 40 mg HS PO 05/27/24 22:00 05/31/24 21:45 40 MG Piperacillin Sod/ Tazobactam Sod 100 ml @ 25 mls/hr Q8HR IV 05/27/24 14:00 06/02/24 14:04 25 MLS/HR Albuterol 2.5 mg Q4HR NEB 05/27/24 18:00 06/02/24 13:35 2.5 MG Ipratropium [place] 0.5 mg Q4HR NEB 05/27/24 18:00 06/02/24 13:35 0.5 MG Norepinephrine Bitartrate 250 ml @ 3.75 mls/hr Q24H IV 05/29/24 05:15 05/31/24 14:19 3.75 MLS/HR Pantoprazole Sodium 40 mg DAILY IV 05/29/24 10:00 06/02/24 09:59 40 MG Clonazepam 1 mg Q12HR PO 05/29/24 10:00 05/31/24 21:45 1 MG Methylprednisolone Sodium Succinate 40 mg BID IV 05/29/24 10:00 06/02/24 09:59 40 MG Vancomycin HCl 0 ml @ 0 mls/hr UD IV 05/29/24 15:00 Diagnostic Test (Pha) 1 strip IQ4HR 05/29/24 20:00 06/02/24 16:24 1 STRIP Insulin Human Regular IQ4HR SC 05/29/24 20:00 06/02/24 16:26 3 UNITS Dextrose 50 ml UD PRN IV 05/29/24 17:30 Furosemide 40 mg DAILY IV 05/30/24 10:00 06/02/24 10:00 40 MG Enteral Nutritional Formula 1,000 ml 30ML/HR GT 05/30/24 13:45 Insulin Glargine 15 units HS SC 05/31/24 22:00 06/01/24 21:50 15 UNITS Vancomycin HCl 250 ml @ 250 mls/hr Q12HR@0900,2100 IV 05/31/24 21:00 06/02/24 10:50 250 MLS/HR Dexmedetomidine HCl 400 mcg/ Dextrose 100 ml @ 5.43 mls/hr [id number] IV 06/01/24 09:00 06/02/24 05:30 8.145 MLS/HR Hydralazine HCl 10 mg Q6HP PRN IV 06/01/24 15:45 Zolpidem Tartrate 5 mg HSPRN PRN PO 06/02/24 15:45 Morphine Sulfate 2 mg Q6HPRN PRN IV 06/02/24 18:00 Laboratory Results Laboratory Tests 06/02/24 03:37 Chemistry Test 06/02/24 03:37 Calcium Level 9.3 mg/dL (8.7-10.4) Urinalysis Test 05/26/24 23:19 Urine Color Light-yellow (Yellow) Urine Clarity Clear (Clear) Urine pH 5.5 (5.0-9.0) Urine Specific [place] 1.016 (1.001-1.035) Urine Protein Negative (Negative) Urine Ketones Negative (Negative) Urine Blood Negative /uL (Negative) Urine Nitrite Negative (Negative) Urine Bilirubin Negative (Negative) Urine Urobilinogen Normal mg/dL (Negative) Urine Leukocyte Esterase Negative /uL (Negative) Urine RBC <1 /hpf (0 - 4) Urine WBC 1 /hpf (0 - 5) Urine Squamous Epithelial Cells Few /hpf (<5) Urine Bacteria None seen /hpf (None Seen) Urine Glucose Normal mg/dL (Normal) Blood Gas Results Test 06/02/24 07:04 Arterial Blood pH 7.546 (7.350-7.450) FiO2 % 30.0 Microbiology Microbiology Date/Time Source Procedure Growth Status 05/29/24 20:30 Sputum Gram Stain - Final Complete 05/29/24 20:30 Sputum Respiratory Culture - Final Complete 05/29/24 12:30 Urine - [place] Urine Culture - Final Complete 05/29/24 12:00 Blood Blood Culture - Preliminary NO GROWTH AFTER 72 HOURS OF INCUBATION. Resulted 05/29/24 06:30 Nose MRSA Screen - Final Complete Labs and/or images reviewed: Labs reviewed by me, Image(s) reviewed by me Assessment/Plan Assessment/Plan 63 yo F with COPD, HFrEF 30%, CAD s/p JOE x4 on plavix, IDDM admitted for shortness of breath. Initially found to be tachycardic tachypneic on bipap, improved after, placed on 2-3LPM, overnight, another episode of tachycardia, hypertension and tachypnea, placed back on bipap, altered and was intubated for hypoxic hypercapnic respiratory failure. seen by me today during rounds 06/02/2023: pt selft extubated. doing well, transfer to telemetry with amiodarone drip. Still has central line CPAP today Physical exam sedated and intubated on mechanical ventilator s1 s2 RRR systolic murmur mechanical breath sounds bloody secretion in ETT abdomen distended trace LE edema, skin wrinkles labs imaging and echo reviewed Assessment and plan Distributive shock sedation related Acute on chronic hypoxic respiratory failure 2/2 PNA vs pulmonary edema? acute on chronic systolic heart failure with reduced ejection fraction, EF 30%, NYHA II CAD s/p JOE x4 on plavix IDDM with hyperglycemia panic attack vs LUÍS? Hemoptysis? Morbid obesity rule out secondary htn bronchial hemorrhage aflutter c/w mechanical ventilation c/w sedation, vent synchrony daily SAT SBT maintain map >65, levophed if needed c/w amio drip c/w lasix IV maintain -500 to 1L c/w zosyn klonazepam lantus ISS fsx4 restart TF, hold for cpap pulm consult appreciated hold lovenox for hemoptysis, c/w plavix miralax daily renal doppler urine metanephrine if HTN will start nicardipine drip CTAP strict IO daily weight follow BAL diet tube feeding hodl for cpap dvt ppx hold gi ppx protonix code status full code Plan discussed with: Other (nursing staff) My Orders Orders - LAMAR GÓMEZ DO Procedure Category Date Status Time Zolpidem Tartrate PHA 06/02/24 In Process (Deja) 15:45 Clear Liq Diet DIET 06/02/24 Transmitted Dinner Transfer Orders XFER 06/02/24 Transmitted 17:46 Pt Request For Service PT 06/02/24 Logged 17:52 Date of Service: Jun 02, 2024 Billing Provider: LAMAR GÓMEZ DO Common Visit Codes: [id number] CARE 30-74 MIN, [id number] CARE-EACH +30MIN LAMAR GÓMEZ DO Jun 02, 2024 19:23
[2024-06-02] MEDS: ACETAMINOPHEN 325 MG TAB PO PRN (21:14)
--- NOTE | 2024-06-02 23:11 | DVHPN2 ---
Progress Note - Dictate Date Seen: Jun 02, 2024 Medical Necessity Reason Pt with a Central, PICC or Fol: Yes The following are medically ne: Morel Catheter Reason for morel catheter: Strict I&O Subjective Patient was seen and evaluated in follow up in the ICU. Patient self extubated this morning. Patient is on 10 L cool aerosol. WBC 2.9, CO2 32, BUN 29, GLUC 240. Chest x-ray shows subsegmental atelectasis in the left lower lobe. vital signs Vital Sign Date Time Temp Pulse Resp B/P (MAP) Pulse Ox O2 Delivery O2 Flow Rate FiO2 06/02/24 10:03 67 06/02/24 10:03 10 98 Cool Aerosol 10 40 40 06/02/24 10:00 118/61 06/02/24 08:11 97.3 97.3 Total Intake and Output 06/01/24 06/01/24 06/02/24 15:00 23:00 07:00 Intake Total 658.575 ml 622.66 ml 363.230 ml Output Total 950 ml 1000 ml Balance 658.575 ml -327.34 ml -636.770 ml medications Current Medications Medications Dose Ordered Sig/Jeanne Route Start Time Stop Time Status Last Admin Dose Admin Clopidogrel Bisulfate 75 mg DAILY PO 05/27/24 10:00 05/31/24 10:25 75 MG Enoxaparin Sodium 40 mg DAILY SC 05/27/24 10:00 06/02/24 10:00 40 MG Acetaminophen 650 mg Q6HP PRN PO 05/27/24 04:15 Atorvastatin Calcium 40 mg HS PO 05/27/24 22:00 05/31/24 21:45 40 MG Piperacillin Sod/ Tazobactam Sod 100 ml @ 25 mls/hr Q8HR IV 05/27/24 14:00 06/02/24 05:30 25 MLS/HR Albuterol 2.5 mg Q4HR NEB 05/27/24 18:00 06/02/24 09:37 2.5 MG Ipratropium [place] 0.5 mg Q4HR NEB 05/27/24 18:00 06/02/24 09:37 0.5 MG Norepinephrine Bitartrate 250 ml @ 3.75 mls/hr Q24H IV 05/29/24 05:15 05/31/24 14:19 3.75 MLS/HR Midazolam HCl 50 ml @ 1 mls/hr Q24H IV 05/29/24 05:15 06/01/24 02:42 7 MLS/HR Propofol 100 ml @ 3.36 mls/hr Q24H IV 05/29/24 06:30 05/29/24 16:59 10.08 MLS/HR Fentanyl Citrate 250 ml @ 2.5 mls/hr Q24H IV 05/29/24 06:30 05/30/24 22:33 17.5 MLS/HR Pantoprazole Sodium 40 mg DAILY IV 05/29/24 10:00 06/02/24 09:59 40 MG Clonazepam 1 mg Q12HR PO 05/29/24 10:00 05/31/24 21:45 1 MG Methylprednisolone Sodium Succinate 40 mg BID IV 05/29/24 10:00 06/02/24 09:59 40 MG Vancomycin HCl 0 ml @ 0 mls/hr UD IV 05/29/24 15:00 Diagnostic Test (Pha) 1 strip IQ4HR 05/29/24 20:00 06/02/24 11:38 1 STRIP Insulin Human Regular IQ4HR SC 05/29/24 20:00 06/02/24 11:43 6 UNITS Dextrose 50 ml UD PRN IV 05/29/24 17:30 Furosemide 40 mg DAILY IV 05/30/24 10:00 06/02/24 10:00 40 MG Enteral Nutritional Formula 1,000 ml 30ML/HR GT 05/30/24 13:45 Insulin Glargine 15 units HS SC 05/31/24 22:00 06/01/24 21:50 15 UNITS Vancomycin HCl 250 ml @ 250 mls/hr Q12HR@0900,2100 IV 05/31/24 21:00 06/02/24 10:50 250 MLS/HR Dexmedetomidine HCl 400 mcg/ Dextrose 100 ml @ 5.43 mls/hr [id number] IV 06/01/24 09:00 06/02/24 05:30 8.145 MLS/HR Hydralazine HCl 10 mg Q6HP PRN IV 06/01/24 15:45 objective GENERAL: Awake, altert, oriented. Morbidly obese. LUNGS: Decreased breath sounds. CARDIOVASCULAR: Heart sounds are good. ABDOMEN: Soft. EXT: Trace BLE edema. laboratory and microbiology Laboratory Tests 06/02/24 03:37 Test 06/02/24 03:37 Range/Units Serum Glucose 248 H 74-106 mg/dL Problem List Acute on chronic hypoxic respiratory failure. Atrial flutter. COPD exacerbation. Pneumonia. Morbid obesity. Acute on chronic systolic heart failure with reduced ejection fraction, EF 30%, NYHA II. CAD s/p JOE x4. IDDM with hyperglycemia. Assessment/Plan Continued all current supportive medical care. Echocardiogram. Lipitor, Plavix. DVT and GI prophylactics. Diuretics with Lasix. Vasopressors for hemodynamic support. IV antibiotics as ordered. Additional plan as per the hospital course. Critical care time of 45 minutes provided to include time spent evaluation of patient at bedside, when appropriate patient/family education for diagnosis, treatment plan, review of pertinent medical information and discussion of care with specialty providers and PCP. Dietary Evaluation Review Comments: 1. Provide the prescribed 2 gNa CCHO-60, Low Fat Lo Cholesterol diet when pt is off vent, EN available and passes a speech eval. Provide a Renal specific 40 g Protein restriction Diet if pt's kidney function further declines. 2. If GI accessible, EN is possible, consider a TF with Glucerna 40ml/hr (58g Pro, 1152 kcal) if PO feeding is not feasible. 3. Consider TPN per pharmacy if NPO >7 days and EN feeding is not feasible. Expected Outcomes/Goals: controlledd DM, gradual weight loss. Plan discussed with: Patient HUMBLE MCCAIN MD Jun 02, 2024 12:38
--- NOTE | 2024-06-02 23:17 | DVHPN2 ---
Progress Note - Dictate Date Seen: Jun 02, 2024 Medical Necessity Reason Pt with a Central, PICC or Fol: Yes The following are medically ne: Morel Catheter Reason for morel catheter: Strict I&O Subjective Patient seen and examined at bedside. S/p extubation, on supplemental oxygen Overnight events reviewed. vital signs Vital Sign Date Time Temp Pulse Resp B/P (MAP) Pulse Ox O2 Delivery O2 Flow Rate FiO2 06/02/24 21:00 98.3 74 16 105/54 (71) 95 98.3 06/02/24 19:01 Nasal Cannula* 3 32 Total Intake and Output 06/01/24 06/01/24 06/02/24 15:00 23:00 07:00 Intake Total 658.575 ml 622.66 ml 363.230 ml Output Total 950 ml 1000 ml Balance 658.575 ml -327.34 ml -636.770 ml medications Current Medications Medications Dose Ordered Sig/Jeanne Route Start Time Stop Time Status Last Admin Dose Admin Clopidogrel Bisulfate 75 mg DAILY PO 05/27/24 10:00 05/31/24 10:25 75 MG Enoxaparin Sodium 40 mg DAILY SC 05/27/24 10:00 06/02/24 10:00 40 MG Acetaminophen 650 mg Q6HP PRN PO 05/27/24 04:15 06/02/24 21:14 650 MG Atorvastatin Calcium 40 mg HS PO 05/27/24 22:00 06/02/24 21:14 40 MG Piperacillin Sod/ Tazobactam Sod 100 ml @ 25 mls/hr Q8HR IV 05/27/24 14:00 06/02/24 22:27 25 MLS/HR Albuterol 2.5 mg Q4HR NEB 05/27/24 18:00 06/02/24 22:38 2.5 MG Ipratropium [place] 0.5 mg Q4HR NEB 05/27/24 18:00 06/02/24 22:38 0.5 MG Norepinephrine Bitartrate 250 ml @ 3.75 mls/hr Q24H IV 05/29/24 05:15 05/31/24 14:19 3.75 MLS/HR Pantoprazole Sodium 40 mg DAILY IV 05/29/24 10:00 06/02/24 09:59 40 MG Clonazepam 1 mg Q12HR PO 05/29/24 10:00 06/02/24 21:13 1 MG Methylprednisolone Sodium Succinate 40 mg BID IV 05/29/24 10:00 06/02/24 21:15 40 MG Vancomycin HCl 0 ml @ 0 mls/hr UD IV 05/29/24 15:00 Diagnostic Test (Pha) 1 strip IQ4HR 05/29/24 20:00 06/02/24 21:14 1 STRIP Insulin Human Regular IQ4HR SC 05/29/24 20:00 06/02/24 20:30 3 UNITS Dextrose 50 ml UD PRN IV 05/29/24 17:30 Furosemide 40 mg DAILY IV 05/30/24 10:00 06/02/24 10:00 40 MG Enteral Nutritional Formula 1,000 ml 30ML/HR GT 05/30/24 13:45 Insulin Glargine 15 units HS SC 05/31/24 22:00 06/02/24 21:23 15 UNITS Vancomycin HCl 250 ml @ 250 mls/hr Q12HR@0900,2100 IV 05/31/24 21:00 06/02/24 20:50 250 MLS/HR Dexmedetomidine HCl 400 mcg/ Dextrose 100 ml @ 5.43 mls/hr [id number] IV 06/01/24 09:00 06/02/24 05:30 8.145 MLS/HR Hydralazine HCl 10 mg Q6HP PRN IV 06/01/24 15:45 Zolpidem Tartrate 5 mg HSPRN PRN PO 06/02/24 15:45 Morphine Sulfate 2 mg Q6HPRN PRN IV 06/02/24 18:00 objective Gen.: Patient lying in bed in no apparent distress. On supplemental oxygen. Head: Normocephalic, atraumatic. Eyes: EOMI/PERRLA. Ears: Normal hearing. Normal anatomy. Neck/trachea: Trachea midline, supple. Nose: Normal external anatomy. Mouth: Moist mucous membranes. Chest: Decreased air entry bilaterally. No wheezing or rhonchi. Cardiovascular: Positive S1, positive S2. Regular rate and rhythm. Abdomen: Positive bowel sounds in all 4 quadrants. Soft, non-tender, non- distended. : Deferred. Rectal: Deferred. Skin: Warm, dry. Intact. Extremities: 2+ radial pulses bilaterally. No lower extremity edema. Neuro: Awake, alert, oriented x3. No gross motor or sensory deficits. Cranial nerves II through XII intact. Gait not assessed. laboratory and microbiology Laboratory Tests 06/02/24 03:37 Test 06/02/24 03:37 Range/Units Serum Glucose 248 H 74-106 mg/dL Assessment/Plan Impression: Acute on chronic hypoxic respiratory failure On mechanical ventilator Pulmonary hemorrhage COPD exacerbation CHF exacerbation Pneumonia, likely gram negative Morbid obesity Events: Currently s/p unplanned extubation. On supplemental oxygen 2 LPM NC Taper O2 as tolerated Continue antibiotics Continue bronchodilators Continue IV steroids On amiodarone drip Accu-Cheks, ISS Protonix for GI prophylaxis Diurese w/ Lasix as tolerated Monitor renal function Monitor electrolytes. Supplement as necessary. Patient is stable for downgrade from the pulmonary standpoint. Labs and imaging reviewed. Rest of plan as noted below. Plan: S/p extubation. On supplemental oxygen Titrate to keep O2 saturation above 90%. Off sedation S/p bronchoscopy with BAL on 05/29/24 - see separate procedure note for details. Continue bronchodilators. Continue antibiotics. Continue steroids Pressors if necessary for hemodynamic support Titrate to keep mean arterial pressure greater than 65 mmHg. Monitor renal function Monitor electrolytes. Supplement as necessary. Monitor ins and outs. Morbid obesity- complicates all care. GI prophylaxis. DVT prophylaxis. Prognosis: Poor given patient's multiple co-morbidities. Condition: Critical Rest of plan per hospitalist and other consultants. A total of 35 minutes of critical care time was spent reviewing the patient record, examining the patient, making a diagnostic and therapeutic plan, discussing this plan with the medical personnel, following up on diagnostic studies and following the patient for clinical stability excluding any and all procedures. At least 50% of this time was spent in direct, [id number] contact. Thank you Dr. Reyes, for allowing me to participate in this patient's care. Further recommendations will depend on the patient's clinical course. Please do not hesitate to contact me if you have any questions or concerns. This medical document was created using an electronic medical record system with [employer] system. Although these documentations are being carefully reviewed, there may still be some phonetic and typographical changes. The errors are purely typographical, due to imperfection on the software program, and do not reflect any compromise in the patient's medical care. Dietary Evaluation Review Comments: 1. Provide the prescribed 2 gNa CCHO-60, Low Fat Lo Cholesterol diet when pt is off vent, EN available and passes a speech eval. Provide a Renal specific 40 g Protein restriction Diet if pt's kidney function further declines. 2. If GI accessible, EN is possible, consider a TF with Glucerna 40ml/hr (58g Pro, 1152 kcal) if PO feeding is not feasible. 3. Consider TPN per pharmacy if NPO >7 days and EN feeding is not feasible. Expected Outcomes/Goals: controlledd DM, gradual weight loss. Plan discussed with: Other (Barbara) Critical Care Time(min): 35 MARYANNE ELLIOTT MD Jun 02, 2024 23:17
[2024-06-03] VITALS (18 sets, daily range): BP systolic 110–159; BP diastolic 55–68; PULSE 65–79; RESP 16–20; TEMP 97.5–98.3; O2SAT 90–100
[2024-06-03] MEDS ORDERED: ONDANSETRON HCL 4 MG/2 ML VIAL IV PRN (00:15)
[2024-06-03] MEDS: HYDROcodone-ACET 5/325MG TAB PO PRN (03:35)
--- NOTE | 2024-06-03 10:37 | DVHPN2 ---
Reviewed: Care Plan, H&P, Labs, Medications, Previous Orders, Radiology Changes from previous H/P or p: No Changes General: Per HPI Objective Vitals Vital Signs Date Time Temp Pulse Resp B/P (MAP) Pulse Ox O2 Delivery O2 Flow Rate FiO2 06/03/24 07:31 79 20 100 06/03/24 07:26 Nasal Cannula* 2 28 06/03/24 05:15 112/55 06/03/24 05:00 97.6 97.6 Intake/Output Intake and Output 06/03/24 07:00 Intake Total 907.910 ml Output Total 2850 ml Balance -1942.090 ml Intake Oral 200 ml IV Total 707.910 ml Output Urine Total 2850 ml Medications Current Medications Medications Dose Ordered Sig/Jeanne Route Start Time Stop Time Status Last Admin Dose Admin Clopidogrel Bisulfate 75 mg DAILY PO 05/27/24 10:00 05/31/24 10:25 75 MG Enoxaparin Sodium 40 mg DAILY SC 05/27/24 10:00 06/02/24 10:00 40 MG Acetaminophen 650 mg Q6HP PRN PO 05/27/24 04:15 06/03/24 05:37 650 MG Atorvastatin Calcium 40 mg HS PO 05/27/24 22:00 06/02/24 21:14 40 MG Piperacillin Sod/ Tazobactam Sod 100 ml @ 25 mls/hr Q8HR IV 05/27/24 14:00 06/03/24 05:46 25 MLS/HR Albuterol 2.5 mg Q4HR NEB 05/27/24 18:00 06/03/24 07:26 2.5 MG Ipratropium [place] 0.5 mg Q4HR NEB 05/27/24 18:00 06/03/24 07:26 0.5 MG Norepinephrine Bitartrate 250 ml @ 3.75 mls/hr Q24H IV 05/29/24 05:15 05/31/24 14:19 3.75 MLS/HR Pantoprazole Sodium 40 mg DAILY IV 05/29/24 10:00 06/02/24 09:59 40 MG Clonazepam 1 mg Q12HR PO 05/29/24 10:00 06/02/24 21:13 1 MG Methylprednisolone Sodium Succinate 40 mg BID IV 05/29/24 10:00 06/02/24 21:15 40 MG Vancomycin HCl 0 ml @ 0 mls/hr UD IV 05/29/24 15:00 Diagnostic Test (Pha) 1 strip IQ4HR 05/29/24 20:00 06/03/24 08:12 1 STRIP Insulin Human Regular IQ4HR SC 05/29/24 20:00 06/03/24 08:17 3 UNITS Dextrose 50 ml UD PRN IV 05/29/24 17:30 Furosemide 40 mg DAILY IV 05/30/24 10:00 06/02/24 10:00 40 MG Enteral Nutritional Formula 1,000 ml 30ML/HR GT 05/30/24 13:45 Insulin Glargine 15 units HS SC 05/31/24 22:00 06/02/24 21:23 15 UNITS Vancomycin HCl 250 ml @ 250 mls/hr Q12HR@0900,2100 IV 05/31/24 21:00 06/02/24 20:50 250 MLS/HR Dexmedetomidine HCl 400 mcg/ Dextrose 100 ml @ 5.43 mls/hr [id number] IV 06/01/24 09:00 06/02/24 05:30 8.145 MLS/HR Hydralazine HCl 10 mg Q6HP PRN IV 06/01/24 15:45 Zolpidem Tartrate 5 mg HSPRN PRN PO 06/02/24 15:45 Morphine Sulfate 2 mg Q6HPRN PRN IV 06/02/24 18:00 Acetaminophen/ Hydrocodone Bitart 1 tab Q8HPRN PRN PO 06/03/24 00:15 06/03/24 03:35 1 TAB Ondansetron HCl 4 mg Q6HPRN PRN IV 06/03/24 00:15 Laboratory Results Laboratory Tests 06/02/24 03:37 06/03/24 06:00 Urinalysis Test 05/26/24 23:19 Urine Color Light-yellow (Yellow) Urine Clarity Clear (Clear) Urine pH 5.5 (5.0-9.0) Urine Specific [place] 1.016 (1.001-1.035) Urine Protein Negative (Negative) Urine Ketones Negative (Negative) Urine Blood Negative /uL (Negative) Urine Nitrite Negative (Negative) Urine Bilirubin Negative (Negative) Urine Urobilinogen Normal mg/dL (Negative) Urine Leukocyte Esterase Negative /uL (Negative) Urine RBC <1 /hpf (0 - 4) Urine WBC 1 /hpf (0 - 5) Urine Squamous Epithelial Cells Few /hpf (<5) Urine Bacteria None seen /hpf (None Seen) Urine Glucose Normal mg/dL (Normal) Microbiology Microbiology Date/Time Source Procedure Growth Status 05/29/24 20:30 Sputum Gram Stain - Final Complete 05/29/24 20:30 Sputum Respiratory Culture - Final Complete 05/29/24 12:30 Urine - [place] Urine Culture - Final Complete 05/29/24 12:00 Blood Blood Culture - Preliminary NO GROWTH AFTER 72 HOURS OF INCUBATION. Resulted 05/29/24 06:30 Nose MRSA Screen - Final Complete Assessment/Plan Assessment/Plan 63 yo F with COPD, HFrEF 30%, CAD s/p JOE x4 on plavix, IDDM admitted for shortness of breath. Initially found to be tachycardic tachypneic on bipap, improved after, placed on 2-3LPM, overnight, another episode of tachycardia, hypertension and tachypnea, placed back on bipap, altered and was intubated for hypoxic hypercapnic respiratory failure. Distributive shock sedation related Acute on chronic hypoxic respiratory failure 2/2 PNA vs pulmonary edema? acute on chronic systolic heart failure with reduced ejection fraction, EF 30%, NYHA II CAD s/p JOE x4 on plavix IDDM with hyperglycemia panic attack vs LUÍS? Hemoptysis? Morbid obesity rule out secondary htn bronchial hemorrhage aflutter s/p intubation and extubation 06/02/2024: pt selft extubated. doing well, transfer to telemetry with amiodarone drip. Still has central line 06/03/2024: pt to continue amiodarone drip, central line remains. code status full code Plan discussed with: Patient My Orders Orders - LAMAR GÓMEZ DO Procedure Category Date Status Time Zolpidem Tartrate PHA 06/02/24 In Process (Ambien) 15:45 Clear Liq Diet DIET 06/02/24 Transmitted Dinner Transfer Orders XFER 06/02/24 Transmitted 17:46 Pt Request For Service PT 06/02/24 Logged 17:52 Date of Service: Jun 03, 2024 Billing Provider: LAMAR GÓMEZ DO Common Visit Codes: [id number] INP/OBS CARE(HIGH) LAMAR GÓMEZ DO Jun 03, 2024 10:37
--- NOTE | 2024-06-03 11:55 | MEDREC ---
[facility] Intervention Section I [facility] Intervention: Deescalate AB based on CS (PLEASE CONSIDER DEESCALATING ANTIBIOTIC IF CLINICALLY APPROPRIATE) ARSH JOHNSON PHARMACIST Jun 03, 2024 11:55
--- NOTE | 2024-06-03 14:45 | DVHPN2 ---
Progress Note - Dictate Date Seen: Jun 03, 2024 Medical Necessity Reason Pt with a Central, PICC or Fol: Yes The following are medically ne: Morel Catheter Reason for morel catheter: Strict I&O Subjective Patient was seen and evaluated in follow up. The patient has been downgraded. Patient is on 2 LPM NC. BS in the 200s. Final blood cultures were negative. Echocardiogram.showed an EF of 25-30%. There is oebxpzlt-ug-tlkmbp global hypokinesis of the left ventricle. Ihjn-du-ciotqdxk concentric left ventricular hypertrophy. Grade II diastolic dysfunction. Gbtsmzfo-md-mvedde mitral annular calcification with mild mitral stenosis. Small pericardial effusion. Telemetry reviewed. vital signs Vital Sign Date Time Temp Pulse Resp B/P (MAP) Pulse Ox O2 Delivery O2 Flow Rate FiO2 06/03/24 11:40 72 18 100 06/03/24 11:35 Nasal Cannula 2.0 06/03/24 11:35 28 06/03/24 10:52 115/65 06/03/24 09:00 98.1 98.1 Total Intake and Output 06/02/24 06/02/24 06/03/24 15:00 23:00 07:00 Intake Total 457.910 ml 350 ml 100 ml Output Total 2500 ml 350 ml Balance 457.910 ml -2150 ml -250 ml medications Current Medications Medications Dose Ordered Sig/Jeanne Route Start Time Stop Time Status Last Admin Dose Admin Clopidogrel Bisulfate 75 mg DAILY PO 05/27/24 10:00 06/03/24 10:39 75 MG Enoxaparin Sodium 40 mg DAILY SC 05/27/24 10:00 06/02/24 10:00 40 MG Acetaminophen 650 mg Q6HP PRN PO 05/27/24 04:15 06/03/24 05:37 650 MG Atorvastatin Calcium 40 mg HS PO 05/27/24 22:00 06/02/24 21:14 40 MG Piperacillin Sod/ Tazobactam Sod 100 ml @ 25 mls/hr Q8HR IV 05/27/24 14:00 06/03/24 05:46 25 MLS/HR Albuterol 2.5 mg Q4HR NEB 05/27/24 18:00 06/03/24 11:35 2.5 MG Ipratropium [place] 0.5 mg Q4HR NEB 05/27/24 18:00 06/03/24 11:35 0.5 MG Norepinephrine Bitartrate 250 ml @ 3.75 mls/hr Q24H IV 05/29/24 05:15 Hold 05/31/24 14:19 3.75 MLS/HR Pantoprazole Sodium 40 mg DAILY IV 05/29/24 10:00 06/03/24 10:52 40 MG Clonazepam 1 mg Q12HR PO 05/29/24 10:00 06/03/24 10:38 1 MG Methylprednisolone Sodium Succinate 40 mg BID IV 05/29/24 10:00 06/03/24 10:57 40 MG Vancomycin HCl 0 ml @ 0 mls/hr UD IV 05/29/24 15:00 Diagnostic Test (Pha) 1 strip IQ4HR 05/29/24 20:00 06/03/24 12:29 1 STRIP Insulin Human Regular IQ4HR SC 05/29/24 20:00 06/03/24 12:35 3 UNITS Dextrose 50 ml UD PRN IV 05/29/24 17:30 Furosemide 40 mg DAILY IV 05/30/24 10:00 06/03/24 10:52 40 MG Enteral Nutritional Formula 1,000 ml 30ML/HR GT 05/30/24 13:45 Insulin Glargine 15 units HS SC 05/31/24 22:00 06/02/24 21:23 15 UNITS Vancomycin HCl 250 ml @ 250 mls/hr Q12HR@0900,2100 IV 05/31/24 21:00 06/03/24 11:03 250 MLS/HR Dexmedetomidine HCl 400 mcg/ Dextrose 100 ml @ 5.43 mls/hr [id number] IV 06/01/24 09:00 Hold 06/02/24 05:30 8.145 MLS/HR Hydralazine HCl 10 mg Q6HP PRN IV 06/01/24 15:45 Zolpidem Tartrate 5 mg HSPRN PRN PO 06/02/24 15:45 Morphine Sulfate 2 mg Q6HPRN PRN IV 06/02/24 18:00 Acetaminophen/ Hydrocodone Bitart 1 tab Q8HPRN PRN PO 06/03/24 00:15 06/03/24 03:35 1 TAB Ondansetron HCl 4 mg Q6HPRN PRN IV 06/03/24 00:15 objective GENERAL: Awake, altert, oriented. Morbidly obese. LUNGS: Decreased breath sounds. CARDIOVASCULAR: Heart sounds are good. ABDOMEN: Soft. EXT: Trace BLE edema. laboratory and microbiology Laboratory Tests 06/03/24 06:00 06/02/24 03:37 Test 06/02/24 03:37 Range/Units Serum Glucose 248 H 74-106 mg/dL Problem List Acute on chronic hypoxic respiratory failure. Atrial flutter. COPD exacerbation. Pneumonia. Morbid obesity. Acute on chronic systolic heart failure with reduced ejection fraction, EF 30%, NYHA II. CAD s/p JOE x4. IDDM with hyperglycemia. Assessment/Plan Continued all current supportive medical care. [place] for pain management. Lipitor, Plavix. DVT and GI prophylactics. Diuretics with Lasix. IV antibiotics as ordered. Additional plan as per the hospital course. Dietary Evaluation Review Comments: 1. Provide the prescribed 2 gNa CCHO-60, Low Fat Lo Cholesterol diet when pt is off vent, EN available and passes a speech eval. Provide a Renal specific 40 g Protein restriction Diet if pt's kidney function further declines. 2. If GI accessible, EN is possible, consider a TF with Glucerna 40ml/hr (58g Pro, 1152 kcal) if PO feeding is not feasible. 3. Consider TPN per pharmacy if NPO >7 days and EN feeding is not feasible. Expected Outcomes/Goals: controlledd DM, gradual weight loss. Plan discussed with: Patient HUMBLE MCCAIN MD Jun 03, 2024 14:45
--- NOTE | 2024-06-03 20:34 | DVHPN2 ---
Progress Note - Dictate Date Seen: Jun 03, 2024 Medical Necessity Reason Pt with a Central, PICC or Fol: Yes The following are medically ne: Morel Catheter Reason for morel catheter: Strict I&O Subjective Patient seen and examined at bedside. Remains on supplemental oxygen Overnight events reviewed. vital signs Vital Sign Date Time Temp Pulse Resp B/P (MAP) Pulse Ox O2 Delivery O2 Flow Rate FiO2 06/03/24 18:16 74 18 99 06/03/24 18:10 Nasal Cannula* 2 28 06/03/24 17:00 98.3 159/55 (89) 98.3 Total Intake and Output 06/02/24 06/02/24 06/03/24 15:00 23:00 07:00 Intake Total 457.910 ml 350 ml 100 ml Output Total 2500 ml 350 ml Balance 457.910 ml -2150 ml -250 ml medications Current Medications Medications Dose Ordered Sig/Jeanne Route Start Time Stop Time Status Last Admin Dose Admin Clopidogrel Bisulfate 75 mg DAILY PO 05/27/24 10:00 06/03/24 10:39 75 MG Enoxaparin Sodium 40 mg DAILY SC 05/27/24 10:00 06/02/24 10:00 40 MG Acetaminophen 650 mg Q6HP PRN PO 05/27/24 04:15 06/03/24 05:37 650 MG Atorvastatin Calcium 40 mg HS PO 05/27/24 22:00 06/02/24 21:14 40 MG Piperacillin Sod/ Tazobactam Sod 100 ml @ 25 mls/hr Q8HR IV 05/27/24 14:00 06/03/24 15:09 25 MLS/HR Albuterol 2.5 mg Q4HR NEB 05/27/24 18:00 06/03/24 19:40 2.5 MG Ipratropium [place] 0.5 mg Q4HR NEB 05/27/24 18:00 06/03/24 19:40 0.5 MG Norepinephrine Bitartrate 250 ml @ 3.75 mls/hr Q24H IV 05/29/24 05:15 Hold 05/31/24 14:19 3.75 MLS/HR Pantoprazole Sodium 40 mg DAILY IV 05/29/24 10:00 06/03/24 10:52 40 MG Clonazepam 1 mg Q12HR PO 05/29/24 10:00 06/03/24 10:38 1 MG Methylprednisolone Sodium Succinate 40 mg BID IV 05/29/24 10:00 06/03/24 10:57 40 MG Vancomycin HCl 0 ml @ 0 mls/hr UD IV 05/29/24 15:00 Diagnostic Test (Pha) 1 strip IQ4HR 05/29/24 20:00 06/03/24 20:17 1 STRIP Insulin Human Regular IQ4HR SC 05/29/24 20:00 06/03/24 20:21 3 UNITS Dextrose 50 ml UD PRN IV 05/29/24 17:30 Furosemide 40 mg DAILY IV 05/30/24 10:00 06/03/24 10:52 40 MG Enteral Nutritional Formula 1,000 ml 30ML/HR GT 05/30/24 13:45 Insulin Glargine 15 units HS SC 05/31/24 22:00 06/02/24 21:23 15 UNITS Vancomycin HCl 250 ml @ 250 mls/hr Q12HR@0900,2100 IV 05/31/24 21:00 06/03/24 11:03 250 MLS/HR Dexmedetomidine HCl 400 mcg/ Dextrose 100 ml @ 5.43 mls/hr [id number] IV 06/01/24 09:00 Hold 06/02/24 05:30 8.145 MLS/HR Hydralazine HCl 10 mg Q6HP PRN IV 06/01/24 15:45 Zolpidem Tartrate 5 mg HSPRN PRN PO 06/02/24 15:45 Morphine Sulfate 2 mg Q6HPRN PRN IV 06/02/24 18:00 Acetaminophen/ Hydrocodone Bitart 1 tab Q8HPRN PRN PO 06/03/24 00:15 06/03/24 03:35 1 TAB Ondansetron HCl 4 mg Q6HPRN PRN IV 06/03/24 00:15 objective Gen.: Patient lying in bed in no apparent distress. On supplemental oxygen. Head: Normocephalic, atraumatic. Eyes: EOMI/PERRLA. Ears: Normal hearing. Normal anatomy. Neck/trachea: Trachea midline, supple. Nose: Normal external anatomy. Mouth: Moist mucous membranes. Chest: Decreased air entry bilaterally. No wheezing or rhonchi. Cardiovascular: Positive S1, positive S2. Regular rate and rhythm. Abdomen: Positive bowel sounds in all 4 quadrants. Soft, non-tender, non- distended. : Deferred. Rectal: Deferred. Skin: Warm, dry. Intact. Extremities: 2+ radial pulses bilaterally. No lower extremity edema. Neuro: Awake, alert, oriented x3. No gross motor or sensory deficits. Cranial nerves II through XII intact. Gait not assessed. laboratory and microbiology Laboratory Tests 06/03/24 06:00 06/02/24 03:37 Test 06/02/24 03:37 Range/Units Serum Glucose 248 H 74-106 mg/dL Assessment/Plan Impression: Acute on chronic hypoxic respiratory failure Pulmonary hemorrhage COPD exacerbation CHF exacerbation Pneumonia, likely gram negative Morbid obesity Events: Remains on supplemental oxygen 2 LPM NC Taper O2 as tolerated Improved O2 requirements. Continue antibiotics Continue bronchodilators Continue IV steroids On amiodarone drip Swallow eval. Accu-Cheks, ISS Protonix for GI prophylaxis Diurese w/ Lasix as tolerated Monitor renal function Monitor electrolytes. Supplement as necessary. Place peripheral IVs. Recommend to remove central line. Labs and imaging reviewed. Rest of plan as noted below. Plan: S/p unplanned extubation on 06/02/24. On supplemental oxygen Titrate to keep O2 saturation above 92%. Off sedation S/p bronchoscopy with BAL on 05/29/24 - see separate procedure note for details. Continue bronchodilators. Continue antibiotics. Continue steroids Pressors if necessary for hemodynamic support Titrate to keep mean arterial pressure greater than 65 mmHg. Monitor renal function Monitor electrolytes. Supplement as necessary. Monitor ins and outs. Morbid obesity- complicates all care. GI prophylaxis. DVT prophylaxis. Prognosis: Guarded given patient's multiple co-morbidities. Rest of plan per hospitalist and other consultants. Thank you Dr. Reyes, for allowing me to participate in this patient's care. Further recommendations will depend on the patient's clinical course. Please do not hesitate to contact me if you have any questions or concerns. This medical document was created using an electronic medical record system with [employer] dictation system. Although these documentations are being carefully reviewed, there may still be some phonetic and typographical changes. The errors are purely typographical, due to imperfection on the software program, and do not reflect any compromise in the patient's medical care. Dietary Evaluation Review Comments: 1. Provide the prescribed 2 gNa CCHO-60, Low Fat Lo Cholesterol diet when pt is off vent, EN available and passes a speech eval. Provide a Renal specific 40 g Protein restriction Diet if pt's kidney function further declines. 2. If GI accessible, EN is possible, consider a TF with Glucerna 40ml/hr (58g Pro, 1152 kcal) if PO feeding is not feasible. 3. Consider TPN per pharmacy if NPO >7 days and EN feeding is not feasible. Expected Outcomes/Goals: controlledd DM, gradual weight loss. Plan discussed with: Patient, Other (MICHELLE Pond) MARYANNE ELLIOTT MD Jun 03, 2024 20:33
[2024-06-03] MEDS: ZOLPIDEM TARTRATE 5 MG TAB PO PRN (21:31)
[2024-06-04] VITALS (22 sets, daily range): BP systolic 97–126; BP diastolic 57–72; PULSE 61–81; RESP 12–18; TEMP 97.5–98.5; O2SAT 94–100
[2024-06-04 07:38] LABS: Basophils # (auto) 0 10 ^3/uL (0-0.2); Basophils % (auto) 0.2 % (0.0-2.0); Eosinophils # (auto) 0 10 ^3/uL (0-0.8); Hematocrit 38.7 % (36.0-46.0); Hemoglobin 12.7 g/dL (12.2-16.2); Lymphocytes # (auto) 0.6 10 ^3/uL (0.4-5.4); Mean Corpuscular Hemoglobin 30.1 pg (28.0-32.0); Mean Corpuscular Hgb Conc. 32.8 g/dL (32.0-36.0); Monocytes # (auto) 0.3 10 ^3/uL (0-1.3); Monocytes % (auto) 5.2 % (0.0-12.0); Neutrophils # (auto) 4.6 10 ^3/uL (1.6-8.6); Neutrophils % (auto) 83.6 % (37.0-80.0); Platelet Count (auto) 118 10^3/uL (140-450); Red Blood Cells 4.21 10^6/uL (4.0-5.20); White Blood Cell 5.5 10^3/uL (4.4-10.8)
--- NOTE | 2024-06-04 19:20 | DVHPN2 ---
Reviewed: Care Plan, H&P, Labs, Medications, Previous Orders, Radiology Changes from previous H/P or p: No Changes General: Per HPI Objective Vitals Vital Signs Date Time Temp Pulse Resp B/P (MAP) Pulse Ox O2 Delivery O2 Flow Rate FiO2 06/04/24 18:00 97.9 71 16 116/67 (83) 96 97.9 06/04/24 14:54 Nasal Cannula 2.0 06/04/24 14:54 28 Intake/Output Intake and Output 06/04/24 07:00 Intake Total 1425 ml Output Total 2300 ml Balance -875 ml Intake Oral 750 ml IV Total 675 ml Tube Feeding 0 ml Output Urine Total 2300 ml Medications Current Medications Medications Dose Ordered Sig/Jeanne Route Start Time Stop Time Status Last Admin Dose Admin Clopidogrel Bisulfate 75 mg DAILY PO 05/27/24 10:00 06/04/24 09:29 75 MG Acetaminophen 650 mg Q6HP PRN PO 05/27/24 04:15 06/03/24 05:37 650 MG Atorvastatin Calcium 40 mg HS PO 05/27/24 22:00 06/03/24 21:30 40 MG Piperacillin Sod/ Tazobactam Sod 100 ml @ 25 mls/hr Q8HR IV 05/27/24 14:00 06/04/24 13:53 25 MLS/HR Albuterol 2.5 mg Q4HR NEB 05/27/24 18:00 06/04/24 14:54 2.5 MG Ipratropium [place] 0.5 mg Q4HR NEB 05/27/24 18:00 06/04/24 14:54 0.5 MG Norepinephrine Bitartrate 250 ml @ 3.75 mls/hr Q24H IV 05/29/24 05:15 Hold 05/31/24 14:19 3.75 MLS/HR Pantoprazole Sodium 40 mg DAILY IV 05/29/24 10:00 06/04/24 09:31 40 MG Clonazepam 1 mg Q12HR PO 05/29/24 10:00 06/04/24 09:29 1 MG Vancomycin HCl 0 ml @ 0 mls/hr UD IV 05/29/24 15:00 Diagnostic Test (Pha) 1 strip IQ4HR 05/29/24 20:00 06/04/24 16:01 1 STRIP Insulin Human Regular IQ4HR SC 05/29/24 20:00 06/04/24 16:02 6 UNITS Dextrose 50 ml UD PRN IV 05/29/24 17:30 Furosemide 40 mg DAILY IV 05/30/24 10:00 06/04/24 09:38 40 MG Enteral Nutritional Formula 1,000 ml 30ML/HR GT 05/30/24 13:45 Insulin Glargine 15 units HS SC 05/31/24 22:00 06/03/24 21:35 15 UNITS Vancomycin HCl 250 ml @ 250 mls/hr Q12HR@0900,2100 IV 05/31/24 21:00 06/04/24 09:24 250 MLS/HR Dexmedetomidine HCl 400 mcg/ Dextrose 100 ml @ 5.43 mls/hr [id number] IV 06/01/24 09:00 Hold 06/02/24 05:30 8.145 MLS/HR Hydralazine HCl 10 mg Q6HP PRN IV 06/01/24 15:45 Zolpidem Tartrate 5 mg HSPRN PRN PO 06/02/24 15:45 06/03/24 21:31 5 MG Morphine Sulfate 2 mg Q6HPRN PRN IV 06/02/24 18:00 Acetaminophen/ Hydrocodone Bitart 1 tab Q8HPRN PRN PO 06/03/24 00:15 06/04/24 17:23 1 TAB Ondansetron HCl 4 mg Q6HPRN PRN IV 06/03/24 00:15 Prednisone 20 mg BID PO 06/04/24 22:00 Amiodarone HCl 200 mg DAILY PO 06/05/24 10:00 Enoxaparin Sodium 40 mg DAILY SC 06/05/24 10:00 Laboratory Results Laboratory Tests 06/02/24 03:37 06/04/24 05:51 Urinalysis Test 05/26/24 23:19 Urine Color Light-yellow (Yellow) Urine Clarity Clear (Clear) Urine pH 5.5 (5.0-9.0) Urine Specific [place] 1.016 (1.001-1.035) Urine Protein Negative (Negative) Urine Ketones Negative (Negative) Urine Blood Negative /uL (Negative) Urine Nitrite Negative (Negative) Urine Bilirubin Negative (Negative) Urine Urobilinogen Normal mg/dL (Negative) Urine Leukocyte Esterase Negative /uL (Negative) Urine RBC <1 /hpf (0 - 4) Urine WBC 1 /hpf (0 - 5) Urine Squamous Epithelial Cells Few /hpf (<5) Urine Bacteria None seen /hpf (None Seen) Urine Glucose Normal mg/dL (Normal) Microbiology Microbiology Date/Time Source Procedure Growth Status 05/29/24 20:30 Sputum Gram Stain - Final Complete 05/29/24 20:30 Sputum Respiratory Culture - Final Complete 05/29/24 12:30 Urine - [place] Urine Culture - Final Complete 05/29/24 12:00 Blood Blood Culture - Final NO GROWTH AFTER 5 DAYS OF INCUBATION. Complete 05/29/24 06:30 Nose MRSA Screen - Final Complete Assessment/Plan Assessment/Plan 63 yo F with COPD, HFrEF 30%, CAD s/p JOE x4 on plavix, IDDM admitted for shortness of breath. Initially found to be tachycardic tachypneic on bipap, improved after, placed on 2-3LPM, overnight, another episode of tachycardia, hypertension and tachypnea, placed back on bipap, altered and was intubated for hypoxic hypercapnic respiratory failure. Distributive shock sedation related Acute on chronic hypoxic respiratory failure 2/2 PNA vs pulmonary edema? acute on chronic systolic heart failure with reduced ejection fraction, EF 30%, NYHA II CAD s/p JOE x4 on plavix IDDM with hyperglycemia panic attack vs LUÍS? Hemoptysis? Morbid obesity rule out secondary htn bronchial hemorrhage aflutter s/p intubation and extubation 06/02/2024: pt selft extubated. doing well, transfer to telemetry with amiodarone drip. Still has central line 06/03/2024: pt to continue amiodarone drip, central line remains. 06/04/2024: switch to oral amiodarone, d/c drip. advance diet to soft, PT/OT eval. if doing well, will d/c to home with HH. code status full code Plan discussed with: Patient My Orders Orders - LAMAR GÓMEZ DO Procedure Category Date Status Time Amiodarone Tablet PHA 06/05/24 In Process (Cordarone Tablet) 10:00 Enoxaparin Sodium PHA 06/05/24 In Process (Lovenox) 10:00 Soft Diet DIET 06/04/24 Transmitted Dinner Pt Request For Service PT 06/04/24 Logged 13:38 * Terminal Make Up Operator CONS 06/04/24 Transmitted Consult * Terminal Make Up Operator CONS 06/04/24 Transmitted Consult Date of Service: Jun 04, 2024 Billing Provider: LAMAR GÓMEZ DO Common Visit Codes: [id number] INP/OBS CARE(HIGH) LAMAR GÓMEZ DO Jun 04, 2024 19:20
[2024-06-04] MEDS: predniSONE 20 MG TAB PO SCH (21:44)
--- NOTE | 2024-06-04 22:28 | DVHPN2 ---
Progress Note - Dictate Date Seen: Jun 04, 2024 Medical Necessity Reason Pt with a Central, PICC or Fol: Yes The following are medically ne: Morel Catheter Reason for morel catheter: Strict I&O Subjective Patient was seen and evaluated in follow up. Patient is on 1 LPM NC. The patient reports improvement in SOB. BS in the 150s-200s. Patient is afebrile. Telemetry reviewed. vital signs Vital Sign Date Time Temp Pulse Resp B/P (MAP) Pulse Ox O2 Delivery O2 Flow Rate FiO2 06/04/24 19:35 72 16 100 06/04/24 19:26 Nasal Cannula 1.0 06/04/24 19:26 24 06/04/24 18:00 97.9 116/67 (83) 97.9 Total Intake and Output 06/03/24 06/03/24 06/04/24 15:00 23:00 07:00 Intake Total 250 ml 1075 ml 100 ml Output Total 2300 ml Balance 250 ml -1225 ml 100 ml medications Current Medications Medications Dose Ordered Sig/Jeanne Route Start Time Stop Time Status Last Admin Dose Admin Clopidogrel Bisulfate 75 mg DAILY PO 05/27/24 10:00 06/04/24 09:29 75 MG Acetaminophen 650 mg Q6HP PRN PO 05/27/24 04:15 06/03/24 05:37 650 MG Atorvastatin Calcium 40 mg HS PO 05/27/24 22:00 06/04/24 21:44 40 MG Piperacillin Sod/ Tazobactam Sod 100 ml @ 25 mls/hr Q8HR IV 05/27/24 14:00 06/04/24 21:46 25 MLS/HR Albuterol 2.5 mg Q4HR NEB 05/27/24 18:00 06/04/24 19:24 2.5 MG Ipratropium [place] 0.5 mg Q4HR NEB 05/27/24 18:00 06/04/24 19:24 0.5 MG Norepinephrine Bitartrate 250 ml @ 3.75 mls/hr Q24H IV 05/29/24 05:15 Hold 05/31/24 14:19 3.75 MLS/HR Pantoprazole Sodium 40 mg DAILY IV 05/29/24 10:00 06/04/24 09:31 40 MG Clonazepam 1 mg Q12HR PO 05/29/24 10:00 06/04/24 21:44 1 MG Vancomycin HCl 0 ml @ 0 mls/hr UD IV 05/29/24 15:00 Diagnostic Test (Pha) 1 strip IQ4HR 05/29/24 20:00 06/04/24 21:41 1 STRIP Insulin Human Regular IQ4HR SC 05/29/24 20:00 06/04/24 21:40 3 UNITS Dextrose 50 ml UD PRN IV 05/29/24 17:30 Furosemide 40 mg DAILY IV 05/30/24 10:00 06/04/24 09:38 40 MG Enteral Nutritional Formula 1,000 ml 30ML/HR GT 05/30/24 13:45 Insulin Glargine 15 units HS SC 05/31/24 22:00 06/04/24 21:42 15 UNITS Dexmedetomidine HCl 400 mcg/ Dextrose 100 ml @ 5.43 mls/hr [id number] IV 06/01/24 09:00 Hold 06/02/24 05:30 8.145 MLS/HR Hydralazine HCl 10 mg Q6HP PRN IV 06/01/24 15:45 Zolpidem Tartrate 5 mg HSPRN PRN PO 06/02/24 15:45 06/03/24 21:31 5 MG Morphine Sulfate 2 mg Q6HPRN PRN IV 06/02/24 18:00 Acetaminophen/ Hydrocodone Bitart 1 tab Q8HPRN PRN PO 06/03/24 00:15 06/04/24 17:23 1 TAB Ondansetron HCl 4 mg Q6HPRN PRN IV 06/03/24 00:15 Prednisone 20 mg BID PO 06/04/24 22:00 06/04/24 21:44 20 MG Amiodarone HCl 200 mg DAILY PO 06/05/24 10:00 Enoxaparin Sodium 40 mg DAILY SC 06/05/24 10:00 objective GENERAL: Awake, altert, oriented. Morbidly obese. LUNGS: Decreased breath sounds. CARDIOVASCULAR: Heart sounds are good. ABDOMEN: Soft. EXT: Trace BLE edema. laboratory and microbiology Laboratory Tests 06/04/24 05:51 06/02/24 03:37 Test 06/02/24 03:37 Range/Units Serum Glucose 248 H 74-106 mg/dL Problem List Acute on chronic hypoxic respiratory failure. Atrial flutter. COPD exacerbation. Pneumonia. Morbid obesity. Acute on chronic systolic heart failure with reduced ejection fraction, EF 30%, NYHA II. CAD s/p JOE x4. IDDM with hyperglycemia. Assessment/Plan Continued all current supportive medical care. Amiodarone. [place] for pain management. Lipitor, Plavix. DVT and GI prophylactics. Diuretics with Lasix. IV antibiotics as ordered. Additional plan as per the hospital course. Dietary Evaluation Review Comments: 1. Provide the prescribed 2 gNa CCHO-60, Low Fat Lo Cholesterol diet when pt is off vent, EN available and passes a speech eval. Provide a Renal specific 40 g Protein restriction Diet if pt's kidney function further declines. 2. If GI accessible, EN is possible, consider a TF with Glucerna 40ml/hr (58g Pro, 1152 kcal) if PO feeding is not feasible. 3. Consider TPN per pharmacy if NPO >7 days and EN feeding is not feasible. Expected Outcomes/Goals: controlledd DM, gradual weight loss. Plan discussed with: Patient HUMBLE MCCAIN MD Jun 04, 2024 22:28
--- NOTE | 2024-06-04 22:49 | DVHPN2 ---
Progress Note - Dictate Date Seen: Jun 04, 2024 Medical Necessity Reason Pt with a Central, PICC or Fol: Yes The following are medically ne: Morel Catheter Reason for morel catheter: Strict I&O Subjective Patient seen and examined at bedside. Remains on supplemental oxygen Overnight events reviewed. vital signs Vital Sign Date Time Temp Pulse Resp B/P (MAP) Pulse Ox O2 Delivery O2 Flow Rate FiO2 06/04/24 19:35 72 16 100 06/04/24 19:26 Nasal Cannula 1.0 06/04/24 19:26 24 06/04/24 18:00 97.9 116/67 (83) 97.9 Total Intake and Output 06/03/24 06/03/24 06/04/24 15:00 23:00 07:00 Intake Total 250 ml 1075 ml 100 ml Output Total 2300 ml Balance 250 ml -1225 ml 100 ml medications Current Medications Medications Dose Ordered Sig/Jeanne Route Start Time Stop Time Status Last Admin Dose Admin Clopidogrel Bisulfate 75 mg DAILY PO 05/27/24 10:00 06/04/24 09:29 75 MG Acetaminophen 650 mg Q6HP PRN PO 05/27/24 04:15 06/03/24 05:37 650 MG Atorvastatin Calcium 40 mg HS PO 05/27/24 22:00 06/04/24 21:44 40 MG Piperacillin Sod/ Tazobactam Sod 100 ml @ 25 mls/hr Q8HR IV 05/27/24 14:00 06/04/24 21:46 25 MLS/HR Albuterol 2.5 mg Q4HR NEB 05/27/24 18:00 06/04/24 19:24 2.5 MG Ipratropium [place] 0.5 mg Q4HR NEB 05/27/24 18:00 06/04/24 19:24 0.5 MG Norepinephrine Bitartrate 250 ml @ 3.75 mls/hr Q24H IV 05/29/24 05:15 Hold 05/31/24 14:19 3.75 MLS/HR Pantoprazole Sodium 40 mg DAILY IV 05/29/24 10:00 06/04/24 09:31 40 MG Clonazepam 1 mg Q12HR PO 05/29/24 10:00 06/04/24 21:44 1 MG Vancomycin HCl 0 ml @ 0 mls/hr UD IV 05/29/24 15:00 Diagnostic Test (Pha) 1 strip IQ4HR 05/29/24 20:00 06/04/24 21:41 1 STRIP Insulin Human Regular IQ4HR SC 05/29/24 20:00 06/04/24 21:40 3 UNITS Dextrose 50 ml UD PRN IV 05/29/24 17:30 Furosemide 40 mg DAILY IV 05/30/24 10:00 06/04/24 09:38 40 MG Enteral Nutritional Formula 1,000 ml 30ML/HR GT 05/30/24 13:45 Insulin Glargine 15 units HS SC 05/31/24 22:00 06/04/24 21:42 15 UNITS Dexmedetomidine HCl 400 mcg/ Dextrose 100 ml @ 5.43 mls/hr [id number] IV 06/01/24 09:00 Hold 06/02/24 05:30 8.145 MLS/HR Hydralazine HCl 10 mg Q6HP PRN IV 06/01/24 15:45 Zolpidem Tartrate 5 mg HSPRN PRN PO 06/02/24 15:45 06/03/24 21:31 5 MG Morphine Sulfate 2 mg Q6HPRN PRN IV 06/02/24 18:00 Acetaminophen/ Hydrocodone Bitart 1 tab Q8HPRN PRN PO 06/03/24 00:15 06/04/24 17:23 1 TAB Ondansetron HCl 4 mg Q6HPRN PRN IV 06/03/24 00:15 Prednisone 20 mg BID PO 06/04/24 22:00 06/04/24 21:44 20 MG Amiodarone HCl 200 mg DAILY PO 06/05/24 10:00 Enoxaparin Sodium 40 mg DAILY SC 06/05/24 10:00 objective Gen.: Patient lying in bed in no apparent distress. On supplemental oxygen. Head: Normocephalic, atraumatic. Eyes: EOMI/PERRLA. Ears: Normal hearing. Normal anatomy. Neck/trachea: Trachea midline, supple. Nose: Normal external anatomy. Mouth: Moist mucous membranes. Chest: Decreased air entry bilaterally. No wheezing or rhonchi. Cardiovascular: Positive S1, positive S2. Regular rate and rhythm. Abdomen: Positive bowel sounds in all 4 quadrants. Soft, non-tender, non- distended. : Deferred. Rectal: Deferred. Skin: Warm, dry. Intact. Extremities: 2+ radial pulses bilaterally. No lower extremity edema. Neuro: Awake, alert, oriented x3. No gross motor or sensory deficits. Cranial nerves II through XII intact. Gait not assessed. laboratory and microbiology Laboratory Tests 06/04/24 05:51 06/02/24 03:37 Test 06/02/24 03:37 Range/Units Serum Glucose 248 H 74-106 mg/dL Assessment/Plan Impression: Acute on chronic hypoxic respiratory failure Pulmonary hemorrhage COPD exacerbation CHF exacerbation Pneumonia, likely gram negative Morbid obesity Events: Remains on supplemental oxygen 2 LPM NC Taper O2 as tolerated Continue antibiotics Continue bronchodilators Continue IV steroids - Solu-Medrol Prednisone 20 mg po BID x5 days. On amiodarone drip Resume Zoloft Swallow eval. Accu-Cheks, ISS Protonix for GI prophylaxis Resume DVT prophylaxis Diurese w/ Lasix as tolerated Monitor renal function Monitor electrolytes. Supplement as necessary. Physical therapy. Labs and imaging reviewed. Rest of plan as noted below. Plan: S/p unplanned extubation on 06/02/24. On supplemental oxygen Titrate to keep O2 saturation above 92%. Off sedation S/p bronchoscopy with BAL on 05/29/24 - see separate procedure note for details. Continue bronchodilators. Continue antibiotics. Continue steroids Pressors if necessary for hemodynamic support Titrate to keep mean arterial pressure greater than 65 mmHg. Monitor renal function Monitor electrolytes. Supplement as necessary. Monitor ins and outs. Morbid obesity- complicates all care. GI prophylaxis. DVT prophylaxis. Prognosis: Guarded given patient's multiple co-morbidities. Rest of plan per hospitalist and other consultants. Thank you Dr. Reyes, for allowing me to participate in this patient's care. Further recommendations will depend on the patient's clinical course. Please do not hesitate to contact me if you have any questions or concerns. This medical document was created using an electronic medical record system with [employer] dictation system. Although these documentations are being carefully reviewed, there may still be some phonetic and typographical changes. The errors are purely typographical, due to imperfection on the software program, and do not reflect any compromise in the patient's medical care. Dietary Evaluation Review Comments: 1. Provide the prescribed 2 gNa CCHO-60, Low Fat Lo Cholesterol diet when pt is off vent, EN available and passes a speech eval. Provide a Renal specific 40 g Protein restriction Diet if pt's kidney function further declines. 2. If GI accessible, EN is possible, consider a TF with Glucerna 40ml/hr (58g Pro, 1152 kcal) if PO feeding is not feasible. 3. Consider TPN per pharmacy if NPO >7 days and EN feeding is not feasible. Expected Outcomes/Goals: controlledd DM, gradual weight loss. Plan discussed with: Patient, Other (MICHELLE Pond) MARYANNE ELLIOTT MD Jun 04, 2024 22:49
[2024-06-05] VITALS (16 sets, daily range): BP systolic 133–177; BP diastolic 62–80; PULSE 58–150; RESP 14–22; TEMP 36.4; O2SAT 92–100
[2024-06-05] MEDS: AMIODARONE HCL 200 MG TAB PO SCH (10:39)
[2024-06-05] MEDS: ENOXAPARIN SOD 40 MG/0.4 ML SYRINGE SC SCH (10:40)
[2024-06-05] MEDS: VANCOMYCIN 500mg/100mL 100 ML IV SCH (13:02)
[2024-06-05] MEDS ORDERED: AMIO200T13 PO (14:06)
[2024-06-05] MEDS ORDERED: CLOP75TA70 PO (14:06)
[2024-06-05] MEDS ORDERED: ATOR20TA50 PO (14:06)
--- NOTE | 2024-06-05 14:07 | DVHDS2 ---
Discharge Summary Date of Admission May 27, 2024 at 04:05 Date of Discharge: Jun 05, 2024 Labs/Diagnostic Data: Laboratory Results Test 06/05/24 12:42 06/05/24 07:00 06/04/24 20:06 06/04/24 05:51 POC Glucose 147 mg/dl (70-106) Creatinine 1.10 mg/dL (0.550-1.02) Glomerular Filtration Rate Calc 56 mL/min (>90) Random Vancomycin Level 16.9 ug/mL (5-10) Vancomycin Level Trough 26.8 ug/mL (5-10) White Blood Count 5.5 10^3/uL (4.4-10.8) Red Blood Count 4.21 10^6/uL (4.0-5.20) Hemoglobin 12.7 g/dL (12.2-16.2) Hematocrit 38.7 % (36.0-46.0) Mean Corpuscular Volume 92.0 fL (80.0-100.0) Mean Corpuscular Hemoglobin 30.1 pg (28.0-32.0) Mean Corpuscular Hemoglobin Concent 32.8 g/dL (32.0-36.0) Red Cell Distribution Width 15.0 % (11.8-14.3) Platelet Count 118 10^3/uL (140-450) Mean Platelet Volume 10.2 fL (6.9-10.8) Neutrophils (%) (Auto) 83.6 % (37.0-80.0) Lymphocytes (%) (Auto) 11.0 % (10.0-50.0) Monocytes (%) (Auto) 5.2 % (0.0-12.0) Eosinophils (%) (Auto) 0.0 % (0.0-7.0) Basophils (%) (Auto) 0.2 % (0.0-2.0) Neutrophils # (Auto) 4.6 10 ^3/uL (1.6-8.6) Lymphocytes # (Auto) 0.6 10 ^3/uL (0.4-5.4) Monocytes # (Auto) 0.3 10 ^3/uL (0-1.3) Eosinophils # (Auto) 0 10 ^3/uL (0-0.8) Basophils # (Auto) 0 10 ^3/uL (0-0.2) Nucleated Red Blood Cells 0.0 % Test 06/03/24 06:00 06/02/24 07:04 06/02/24 03:37 06/01/24 15:02 Magnesium Level 2.4 mg/dL (1.6-2.6) Blood Gas Specimen Type Arterial Blood Gas Sample Site Left radial Blood Gas Patient Temperature 37.0 Arterial Blood Date Drawn [id number] Arterial Blood pH 7.546 (7.350-7.450) Arterial Blood Partial Pressure CO2 35.6 mmHg (32.0-45.0) Arterial Blood Partial Pressure O2 61.2 mmHg (83.0-108.0) Arterial Blood HCO3 30.2 mmol/L (21.0-28.0) Arterial Blood Oxygen Saturation 91.3 % (94.0-98.0) Arterial Blood Base Excess 7.5 mmol/L (-2.0-3.0) Arterial Blood Oxyhemoglobin 90.0 % (94.0-98.0) Arterial Blood Carboxyhemoglobin 1.0 % (0.5-1.5) Arterial Blood Methemoglobin 0.4 % (0.0-1.5) Raciel Test Modified Blood Gas Total Hemoglobin 12.00 g/dL (12.0-16.0) Blood Gas Set Respiration Rate 26.0 Blood Gas Modality Vent - ac FiO2 % 30.0 Blood Gas Tidal Volume 450.0 Blood Gas PEEP or CPAP 5.0 Sodium Level 140 mmol/L (136-145) Potassium Level 3.8 mmol/L (3.5-5.1) Chloride Level 102 mmol/L (98-107) Carbon Dioxide Level 32 mmol/L (20-31) Anion Gap 6 (5-15) Blood Urea Nitrogen 29 mg/dL (9-23) BUN/Creatinine Ratio 29.9 (10.0-20.0) Serum Glucose 248 mg/dL (74-106) Calcium Level 9.3 mg/dL (8.7-10.4) Blood Gas Pressure Support 8 Blood Gas Critical Value Read Back Yes Test 06/01/24 03:25 05/30/24 03:56 05/29/24 10:17 05/29/24 09:11 Phosphorus Level 3.9 mg/dL (2.4-5.1) Total Bilirubin 0.5 mg/dL (0.2-1.0) Aspartate Amino Transferase (AST) 21 U/L (13-40) Alanine Aminotransferase (ALT) 22 U/L (7-40) Alkaline Phosphatase 66 U/L (46-116) Total Protein 6.0 g/dL (5.7-8.2) Albumin 3.9 g/dL (3.2-4.8) Lactic Acid Level 1.3 mmol/L (0.4-2.0) Blood Gas Notified Whom corinne Reyes md Blood Gas Notified Time [id number] Blood Gas Notified By Service Desk Specialist roseanna joiner Prothrombin Time 10.3 sec (9.3-11.8) Prothrombin Time INR 0.97 (0.9-1.15) Test 05/28/24 06:00 05/27/24 12:32 05/27/24 04:42 05/26/24 23:19 Hemoglobin A1c 5.7 % A1C (<5.7) Vitamin B12 Level 112 pg/mL (211-911) Thyroid Stimulating Hormone (TSH) 0.18 uIU/mL (0.55-4.78) Free Thyroxine (T4) Calculated 1.07 ng/dL (0.89-1.76) Free Triiodothyronine (T3) pg/mL 2.34 pg/mL (2.3-4.2) Blood Gas EPAP 7 Blood Gas IPAP 12 Troponin I High Sensitivity 34 ng/L (</=34) Urine Color Light-yellow (Yellow) Urine Clarity Clear (Clear) Urine pH 5.5 (5.0-9.0) Urine Specific [place] 1.016 (1.001-1.035) Urine Protein Negative (Negative) Urine Ketones Negative (Negative) Urine Blood Negative /uL (Negative) Urine Nitrite Negative (Negative) Urine Bilirubin Negative (Negative) Urine Urobilinogen Normal mg/dL (Negative) Urine Leukocyte Esterase Negative /uL (Negative) Urine RBC <1 /hpf (0 - 4) Urine WBC 1 /hpf (0 - 5) Urine Squamous Epithelial Cells Few /hpf (<5) Urine Bacteria None seen /hpf (None Seen) Urine Glucose Normal mg/dL (Normal) Test 05/26/24 21:15 05/26/24 20:50 Influenza Type A Antigen Negative (Negative) Influenza Type B Antigen Negative (Negative) SARS-CoV-2 Antigen (Rapid) Negative (NEGATIVE) D-Dimer, Quantitative 1.28 mg/L FEU (0.0-0.49) B-Type Natriuretic Peptide 393.97 pg/mL (0-100) Other Laboratory Tests 06/05/24 07:00 06/04/24 05:51 06/02/24 03:37 Discharge Disposition: Home Discharge Instruct/Medications Diet: Cardiac 2g Na,low cholest Activity: No Restrictions, As Tolerated Discharge Statement: "Patient was advised to return to the ER or call 911 if any headaches, dizziness, shortness of breath, chest pain, abdominal pain, bleeding, fevers, or worsening of medical condition. Patient was counseled about treatment plan, medications, possible side effects, patientverbalized understanding. All questions were answered to the best of my ability. This discharge took greater then 30 minutes in planning, reviewing documentation, counseling the patient, and discussing with other team members." ASSESSMENT ASSESSMENT Assessment Date of Service: Jun 05, 2024 Billing Provider: LAMAR GÓMEZ DO Common Visit Codes: [id number] INP/OBS CARE(HIGH) LAMAR GÓMEZ DO Jun 05, 2024 14:07
--- NOTE | 2024-06-05 20:48 | DVHPN2 ---
Progress Note - Dictate Date Seen: Jun 05, 2024 Medical Necessity Reason Pt with a Central, PICC or Fol: Yes The following are medically ne: Morel Catheter Reason for morel catheter: Strict I&O Subjective Patient was seen and evaluated in follow up. Patient has no new complaints at this time. Patient denies any cardiac symptoms. Patient is cardiac stable for discharge. Telemetry reviewed. vital signs Vital Sign Date Time Temp Pulse Resp B/P (MAP) Pulse Ox O2 Delivery O2 Flow Rate FiO2 06/05/24 13:25 76 14 96 06/05/24 13:25 Nasal Cannula* 1 06/05/24 10:41 177/80 06/05/24 09:00 98.5 98.5 Total Intake and Output 06/04/24 06/04/24 06/05/24 15:00 23:00 07:00 Intake Total 250 ml 425 ml 500 ml Output Total 1450 ml 650 ml Balance 250 ml -1025 ml -150 ml medications Current Medications Medications Dose Ordered Sig/Jeanne Route Start Time Stop Time Status Last Admin Dose Admin Clopidogrel Bisulfate 75 mg DAILY PO 05/27/24 10:00 06/05/24 10:39 75 MG Acetaminophen 650 mg Q6HP PRN PO 05/27/24 04:15 06/03/24 05:37 650 MG Atorvastatin Calcium 40 mg HS PO 05/27/24 22:00 06/04/24 21:44 40 MG Piperacillin Sod/ Tazobactam Sod 100 ml @ 25 mls/hr Q8HR IV 05/27/24 14:00 06/05/24 05:25 25 MLS/HR Albuterol 2.5 mg Q4HR NEB 05/27/24 18:00 06/05/24 13:25 2.5 MG Ipratropium [place] 0.5 mg Q4HR NEB 05/27/24 18:00 06/05/24 13:25 0.5 MG Norepinephrine Bitartrate 250 ml @ 3.75 mls/hr Q24H IV 05/29/24 05:15 Hold 05/31/24 14:19 3.75 MLS/HR Pantoprazole Sodium 40 mg DAILY IV 05/29/24 10:00 06/05/24 10:40 40 MG Clonazepam 1 mg Q12HR PO 05/29/24 10:00 06/05/24 10:39 1 MG Vancomycin HCl 0 ml @ 0 mls/hr UD IV 05/29/24 15:00 Diagnostic Test (Pha) 1 strip IQ4HR 05/29/24 20:00 06/05/24 12:54 1 STRIP Insulin Human Regular IQ4HR SC 05/29/24 20:00 06/05/24 13:00 2 UNITS Dextrose 50 ml UD PRN IV 05/29/24 17:30 Furosemide 40 mg DAILY IV 05/30/24 10:00 06/05/24 10:41 40 MG Enteral Nutritional Formula 1,000 ml 30ML/HR GT 05/30/24 13:45 Insulin Glargine 15 units HS SC 05/31/24 22:00 06/04/24 21:42 15 UNITS Dexmedetomidine HCl 400 mcg/ Dextrose 100 ml @ 5.43 mls/hr [id number] IV 06/01/24 09:00 Hold 06/02/24 05:30 8.145 MLS/HR Hydralazine HCl 10 mg Q6HP PRN IV 06/01/24 15:45 Zolpidem Tartrate 5 mg HSPRN PRN PO 06/02/24 15:45 06/03/24 21:31 5 MG Morphine Sulfate 2 mg Q6HPRN PRN IV 06/02/24 18:00 Acetaminophen/ Hydrocodone Bitart 1 tab Q8HPRN PRN PO 06/03/24 00:15 06/04/24 17:23 1 TAB Ondansetron HCl 4 mg Q6HPRN PRN IV 06/03/24 00:15 Prednisone 20 mg BID PO 06/04/24 22:00 06/05/24 10:39 20 MG Amiodarone HCl 200 mg DAILY PO 06/05/24 10:00 06/05/24 10:39 200 MG Enoxaparin Sodium 40 mg DAILY SC 06/05/24 10:00 06/05/24 10:40 40 MG Vancomycin HCl 100 ml @ 200 mls/hr Q12H IV 06/05/24 12:00 06/05/24 13:02 200 MLS/HR objective GENERAL: Awake, altert, oriented. Morbidly obese. LUNGS: Decreased breath sounds. CARDIOVASCULAR: Heart sounds are good. ABDOMEN: Soft. EXT: Trace BLE edema. laboratory and microbiology Laboratory Tests 06/05/24 07:00 06/04/24 05:51 06/02/24 03:37 Test 06/02/24 03:37 Range/Units Serum Glucose 248 H 74-106 mg/dL Problem List Acute on chronic hypoxic respiratory failure. Atrial flutter. COPD exacerbation. Pneumonia. Morbid obesity. Acute on chronic systolic heart failure with reduced ejection fraction, EF 30%, NYHA II. CAD s/p JOE x4. IDDM with hyperglycemia. Assessment/Plan Continued all current supportive medical care. Amiodarone. [place] for pain management. Lipitor, Plavix. DVT and GI prophylactics. Diuretics with Lasix. IV antibiotics as ordered. Additional plan as per the hospital course. Dietary Evaluation Review Comments: 1. Provide the prescribed 2 gNa CCHO-60, Low Fat Lo Cholesterol diet when pt is off vent, EN available and passes a speech eval. Provide a Renal specific 40 g Protein restriction Diet if pt's kidney function further declines. 2. If GI accessible, EN is possible, consider a TF with Glucerna 40ml/hr (58g Pro, 1152 kcal) if PO feeding is not feasible. 3. Consider TPN per pharmacy if NPO >7 days and EN feeding is not feasible. Expected Outcomes/Goals: controlledd DM, gradual weight loss. Plan discussed with: Patient HUMBLE MCCAIN MD Jun 05, 2024 13:31
--- NOTE | 2024-06-05 23:19 | DVHPN2 ---
Progress Note - Dictate Date Seen: Jun 05, 2024 Medical Necessity Reason Pt with a Central, PICC or Fol: Yes The following are medically ne: Morel Catheter Reason for morel catheter: Strict I&O Subjective Patient seen and examined at bedside. Remains on supplemental oxygen Overnight events reviewed. vital signs Vital Sign Date Time Temp Pulse Resp B/P (MAP) Pulse Ox O2 Delivery O2 Flow Rate FiO2 06/05/24 18:49 78 20 98 06/05/24 18:41 Nasal Cannula* 2 28 06/05/24 16:18 36.4 06/05/24 13:00 167/62 (97) Total Intake and Output 06/04/24 06/04/24 06/05/24 15:00 23:00 07:00 Intake Total 250 ml 425 ml 500 ml Output Total 1450 ml 650 ml Balance 250 ml -1025 ml -150 ml objective Gen.: Patient lying in bed in no apparent distress. On supplemental oxygen. Head: Normocephalic, atraumatic. Eyes: EOMI/PERRLA. Ears: Normal hearing. Normal anatomy. Neck/trachea: Trachea midline, supple. Nose: Normal external anatomy. Mouth: Moist mucous membranes. Chest: Decreased air entry bilaterally. No wheezing or rhonchi. Cardiovascular: Positive S1, positive S2. Regular rate and rhythm. Abdomen: Positive bowel sounds in all 4 quadrants. Soft, non-tender, non- distended. : Deferred. Rectal: Deferred. Skin: Warm, dry. Intact. Extremities: 2+ radial pulses bilaterally. No lower extremity edema. Neuro: Awake, alert, oriented x3. No gross motor or sensory deficits. Cranial nerves II through XII intact. Gait not assessed. laboratory and microbiology Laboratory Tests 06/05/24 07:00 06/04/24 05:51 06/02/24 03:37 Test 06/02/24 03:37 Range/Units Serum Glucose 248 H 74-106 mg/dL Assessment/Plan Impression: Acute on chronic hypoxic respiratory failure Pulmonary hemorrhage COPD exacerbation CHF exacerbation Pneumonia, likely gram negative Morbid obesity Events: Remains on supplemental oxygen 1 LPM NC Taper O2 as tolerated Improving O2 requirements Continue antibiotics Continue bronchodilators Continue steroids - Prednisone 20 mg po BID x5 days. Transitioned from amiodarone drip to PO amiodarone Swallow eval. Accu-Cheks, ISS Protonix for GI prophylaxis DVT prophylaxis Diurese w/ Lasix as tolerated Monitor renal function Monitor electrolytes. Supplement as necessary. Physical therapy. Recommend central line removal. Labs and imaging reviewed. Rest of plan as noted below. Plan: S/p unplanned extubation on 06/02/24. On supplemental oxygen Titrate to keep O2 saturation above 92%. Off sedation S/p bronchoscopy with BAL on 05/29/24 - see separate procedure note for details. Continue bronchodilators. Continue antibiotics. Continue steroids Pressors if necessary for hemodynamic support Titrate to keep mean arterial pressure greater than 65 mmHg. Monitor renal function Monitor electrolytes. Supplement as necessary. Monitor ins and outs. Morbid obesity- complicates all care. GI prophylaxis. DVT prophylaxis. Prognosis: Guarded given patient's multiple co-morbidities. Rest of plan per hospitalist and other consultants. Thank you Dr. Reyes, for allowing me to participate in this patient's care. Further recommendations will depend on the patient's clinical course. Please do not hesitate to contact me if you have any questions or concerns. This medical document was created using an electronic medical record system with [email or web address] dictation system. Although these documentations are being carefully reviewed, there may still be some phonetic and typographical changes. The errors are purely typographical, due to imperfection on the software program, and do not reflect any compromise in the patient's medical care. Dietary Evaluation Review Comments: 1. Provide the prescribed 2 gNa CCHO-60, Low Fat Lo Cholesterol diet when pt is off vent, EN available and passes a speech eval. Provide a Renal specific 40 g Protein restriction Diet if pt's kidney function further declines. 2. If GI accessible, EN is possible, consider a TF with Glucerna 40ml/hr (58g Pro, 1152 kcal) if PO feeding is not feasible. 3. Consider TPN per pharmacy if NPO >7 days and EN feeding is not feasible. Expected Outcomes/Goals: controlledd DM, gradual weight loss. Plan discussed with: Patient, Other (MICHELLE Geronimo) MARYANNE ELLIOTT MD Jun 05, 2024 23:19
== END 2024-06-05 19:35 | disposition home health service (06) | DRG 207 ==
LOC: ER 20:05 → EDBD 20:05 → EDSEX 20:05 → OVERFLOW 05-27 04:05 → WEST WING 05-27 10:50 → TELE-WESTW 05-27 20:35 → CATH ICU 05-29 05:20 → ICU WEST 05-29 15:29 → TELE-CENTR 06-02 18:00
PROVIDERS: ADMIT Internal Medicine; ATTEND Internal Medicine
PROC: 5A09357 Assistance with Respiratory Ventilation, Less than 24 Consecutive Hours, Continuous Positive Airway Pressure (ICD-10-PCS; 2024-05-27)
PROC: 5A1955Z Respiratory Ventilation, Greater than 96 Consecutive Hours (ICD-10-PCS; principal; 2024-05-29)
PROC: 0BH17EZ Insertion of Endotracheal Airway into Trachea, Via Natural or Artificial Opening (ICD-10-PCS; 2024-05-29)
PROC: 02HV33Z Insertion of Infusion Device into Superior Vena Cava, Percutaneous Approach (ICD-10-PCS; 2024-05-29)
PROC: B548ZZA Ultrasonography of Superior Vena Cava, Guidance (ICD-10-PCS; 2024-05-29)
PROC: 0B9D8ZX Drainage of Right Middle Lung Lobe, Via Natural or Artificial Opening Endoscopic, Diagnostic (ICD-10-PCS; 2024-05-29)
PROC: 03HY32Z Insertion of Monitoring Device into Upper Artery, Percutaneous Approach (ICD-10-PCS; 2024-05-29)
DX: J96.21 Acute and chronic respiratory failure with hypoxia (principal); J15.69 Pneumonia due to other Gram-negative bacteria; I21.A1 Myocardial infarction type 2; I50.23 Acute on chronic systolic (congestive) heart failure; R57.8 Other shock; N17.9 Acute kidney failure, unspecified; J44.1 Chronic obstructive pulmonary disease with (acute) exacerbation; E87.20 Acidosis, unspecified; I48.92 Unspecified atrial flutter; I31.39 Other pericardial effusion (noninflammatory); R04.89 Hemorrhage from other sites in respiratory passages; J96.22 Acute and chronic respiratory failure with hypercapnia; Z20.822 Contact with and (suspected) exposure to COVID-19; I11.0 Hypertensive heart disease with heart failure; E11.65 Type 2 diabetes mellitus with hyperglycemia; E66.01 Morbid (severe) obesity due to excess calories; I48.91 Unspecified atrial fibrillation; Z79.4 Long term (current) use of insulin; Z82.5 Family history of asthma and other chronic lower respiratory diseases; Z82.49 Family history of ischemic heart disease and other diseases of the circulatory system; Z83.3 Family history of diabetes mellitus; Z95.5 Presence of coronary angioplasty implant and graft
CPT/HCPCS: 36415; 36556; 36600; 36620; 71045; 71275; 74177; 76937; 80048; 80053; 80202; 81001; 82565; 82607; 82805; 82962; 83036; 83605; 83735; 83880; 84100; 84132; 84439; 84443; 84481; 84484; 85025; 85379; 85610; 87040; 87070; 87081; 87086; 87205; 87426; 87804; 90656; 93005; 93306; 93971; 93975; 94003; 94640; 94660; 97110; 97116; 97163; G0378; J0330; J1100; J1815; J2470; J2543; J2704; J3480; J7060

== ENCOUNTER 2024-07-23 22:45 | Inpatient (IN) | payer OTHER, MEDICAID ==
[~2024-07-23] VITALS: Ht 157.5 cm; Wt 105.2 kg
[2024-07-23] MEDS: IPRATROPIUM BROM 0.5 MG/2.5ML INH SOL ONE (22:33)
[2024-07-23] MEDS: ALBUTEROL SULF 2.5 MG/0.5ML(0.5%) NEB SOLN ONE (22:34)
[~2024-07-23 22:45] MED LIST changes: +AMIO200T13 PO; +ATOR20TA PO; +ATOR20TA50 PO; -BENA10TA16 GT; -FURO40TA4 PO; +IPRAAER6 IN; -LEVO500T91 PO; +METF-1145 PO; -METH4PAK PO; -PANT40T PO
--- NOTE | 2024-07-23 23:38 | DVH ---
CHEST RADIOGRAPH Indication: cp Technique: Single frontal view of the chest was obtained COMPARISON: XY CHEST PORTABLE on DOS: 06/02/24, XY CHEST PORTABLE on DOS: 06/01/24, XY CHEST PORTABLE o n DOS: 05/31/24, XY CHEST PORTABLE on DOS: 05/30/24, XY CHEST PORTABLE on DOS: 05/29/24 FINDINGS: Lines and Tubes: None Lungs: No abnormality demonstrated. Pleura: No effusion. No pneumothorax. Cardiomediastinal contours: Mild cardiomegaly IMPRESSION: No acute abnormality demonstrated.
--- NOTE | 2024-07-23 23:43 | ED.PDOC ---
History of Present Illness HPI Comments 63 y/o F, with a history of CHF, COPD w/home O2, DM, HTN, and PNA, is BIBA for c/o shortness of breath, today. Per EMS report, patient endorses on sudden and unprovoked onset of difficulty breathing, while at-rest, sitting on her couch, this evening. She is stated to have called with no relief after 2x albuterol breathing treatment use. Patient was noted to have been found on a SpO2 of 85%RA, with decreased lung sounds and expiratory wheezes. En route, patient was placed on 2LPM O2, with SpO2 improving to her endorsed, usual baseline SpO2 of 93%. She is also reported to have recent [facility] hospital admission, with intubation/extubation, for PNA in May, this years. AT time of assessment, patient denies having any chest pain, palpitations, cough, congestion, fever, chills, or other associated symptoms or modifiers at this time. She denies any recent illness. States she has been feeling well recently until the sudden onset of the symptoms. States she has been taking her medications as prescribed and using respiratory treatments as prescribed. . Chief Complaint: Shortness of Breath Time Seen by MD: 23:20 Primary Care Provider: UNKNOWN Reviewed Notes: Nurses Notes, Cork Tile Floor Layer Notes, Medications, Allergies Allergies: Coded Allergies: NO KNOWN ALLERGIES (Unverified , 04/04/24) Home Meds Active Scripts Clopidogrel Bisulfate (CLOPIDOGREL) 75 Mg Tab, 75 MG PO DAILY for 30 Days, #30 TAB 3 Refills Prov:LAMAR GÓMEZ DO 06/05/24 Atorvastatin Calcium (ATORVASTATIN CALCIUM) 20 Mg Tab, 40 MG PO HS for 30 Days, #60 TAB 3 Refills Prov:LAMAR GÓMEZ DO 06/05/24 Amiodarone HCl (Amiodarone HCl) 200 Mg Tab, 200 MG PO DAILY for 30 Days, #30 TAB 3 Refills Prov:LAMAR GÓMEZ DO 06/05/24 Reported Medications Famotidine (Famotidine) 20 Mg Tab, 1 TAB PO DAILY PRN for GERD for 30 Days, #30 05/30/24 Atorvastatin Calcium (Lipitor) 80 Mg Tab, 1 TAB PO DAILY for 30 Days, #30 05/30/24 Albuterol Sulfate (Albuterol Sulfate Hfa) 108 Mcg/Act Aer, 1-2 PUFF IN Q6HR PRN for 50 Days, #18 05/30/24 Pantoprazole Sodium Sesquihydr (Protonix) 40 Mg Tab, 20 MG PO DAILY for 30 Days, #30 05/30/24 Benazepril Hcl (Benazepril Hcl) 20 Mg Tab, 1 TAB PO DAILY for 90 Days, #90 05/30/24 Furosemide (Furosemide) 20 Mg Tab, 1 TAB PO DAILY for 30 Days, #30 05/30/24 Metformin Hydrochloride (Metformin Hcl) 500 Mg Tab, 1 TAB PO BID for 90 Days, #180 04/06/24 Fluticasone Furoate-Vilanterol (Breo Ellipta 200-25 Mcg/INH) 1 Inh Inh, 1 INH IN DAILY, INHALER 04/05/24 Metoprolol Tartrate (Lopressor) 25 Mg Tb, 25 MG PO DAILY, TAB 04/05/24 Gabapentin (Gabapentin) 800 Mg Tab, 800 MG PO BID, TAB 04/05/24 Montelukast Sodium (MONTELUKAST SODIUM) 10 Mg Tab, 1 TAB PO DAILY for 30 Days, #30 04/05/24 Clopidogrel Bisulfate (CLOPIDOGREL) 75 Mg Tab, 1 TAB PO DAILY for 30 Days, #30 04/05/24 Glipizide (Glipizide) 5 Mg Tab, 5 MG PO BID, MG 04/05/24 Information Source: Patient, Emergency Med Personnel Mode of Arrival: EMS Severity: Moderate Timing: Hours Duration: Since onset Prehospital treatment: 12 Lead EKG, Breathing Tx, Dipper And Baker, Oxygen Review of Systems: REVIEW OF SYSTEMS: No fever, no chills, or fatigue HEENT: No sore throat, no earache, no congestion, no neck pain. Cardiac: No chest pain. No palpitations. Lungs: Shortness of breath, no cough. GI: No nausea, no vomiting, no diarrhea, no constipation, no abdominal pain : No dysuria, frequency, or urgency. No hematuria. Musculoskeletal: No joint pain , no joint swelling, no extremity edema. Skin: No rash, no itching. Neuro: No headache, no dizziness, no weakness Vital Signs Vital Signs Date Time Temp Pulse Resp B/P (MAP) Pulse Ox O2 Delivery O2 Flow Rate FiO2 07/23/24 23:59 93 07/23/24 23:51 24 90 Nasal Cannula* 2 28 07/23/24 22:55 97.9 185/63 (103) Physical Exam General: Awake, alert and oriented. No acute distress. Skin: Skin in warm, dry and intact. Appropriate color for ethnicity. HEENT: The head is normocephalic and atraumatic. Conjunctivae are clear without exudates or hemorrhage. Sclera is non-icteric. EOM are intact. No signs of nystagmus. Eyelids are normal in appearance without swelling or lesions. Oral mucosa is pink and moist Neck: The neck is supple with normal range of motion. No JVD. Cardiac: Heart rate and rhythm are normal. No murmurs, gallops, or rubs are auscultated. Respiratory: Diminished lung sounds, bilaterally, worse in right-lung field. No signs of respiratory distress. Abdominal: Abdomen is soft, non-tender without distention. Bowel sounds are pr esent and normoactive in all four quadrants. Extremities: Upper and lower extremities are atraumatic in appearance without deformity or edema. Neurological: The patient is awake, alert and oriented to person, place, and time with normal speech. Speech is clear. There is no facial asymmetry. Psychiatric: Appropriate mood and affect. Good judgement and insight. No visual or auditory hallucinations. 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 Was a procedure done?: No EKG EKG : Pulse Rate (adult): 93 Sebastian: Normal Cardiac Rhythm: NSR Block: None Hypertrophy: LVH ST: Normal Differential Dx Considerations may include: Differential diagnoses considered includebut arenot limited to acute Bronchitis, Asthma, COPD, Pneumothorax, PE, CHF, Pulmonary HTN, Anemia, CO Poisoning, Methemoglobinemia, Hyperventilation, Metabolic Acidosis, Pulmonary Edema, Pneumonia, ACS, Pericardial Tamponade, Anxiety, other X-Ray, Labs, Meds, VS Vital Signs Date Time Temp Pulse Resp B/P (MAP) Pulse Ox O2 Delivery O2 Flow Rate FiO2 07/23/24 23:59 93 07/23/24 23:51 24 90 Nasal Cannula* 2 28 07/23/24 22:55 97.9 90 20 185/63 (103) 98 07/23/24 22:54 93 Lab Test 07/23/24 23:28 Range/Units White Blood Count 5.1 4.4-10.8 10^3/uL Red Blood Count 3.96 L 4.0-5.20 10^6/uL Hemoglobin 12.1 L 12.2-16.2 g/dL Hematocrit 36.1 36.0-46.0 % Mean Corpuscular Volume 91.2 80.0-100.0 fL Mean Corpuscular Hemoglobin 30.5 28.0-32.0 pg Mean Corpuscular Hemoglobin Concent 33.5 32.0-36.0 g/dL Red Cell Distribution Width 15.7 H 11.8-14.3 % Platelet Count 107 L 140-450 10^3/uL Mean Platelet Volume 9.5 6.9-10.8 fL Neutrophils (%) (Auto) 75.0 37.0-80.0 % Lymphocytes (%) (Auto) 16.9 10.0-50.0 % Monocytes (%) (Auto) 5.2 0.0-12.0 % Eosinophils (%) (Auto) 2.3 0.0-7.0 % Basophils (%) (Auto) 0.6 0.0-2.0 % Neutrophils # (Auto) 3.8 1.6-8.6 10 ^3/uL Lymphocytes # (Auto) 0.9 0.4-5.4 10 ^3/uL Monocytes # (Auto) 0.3 0-1.3 10 ^3/uL Eosinophils # (Auto) 0.1 0-0.8 10 ^3/uL Basophils # (Auto) 0 0-0.2 10 ^3/uL Nucleated Red Blood Cells 0.0 % Sodium Level 141 136-145 mmol/L Potassium Level 3.7 3.5-5.1 mmol/L Chloride Level 107 98-107 mmol/L Carbon Dioxide Level 23 20-31 mmol/L Anion Gap 11 5-15 Blood Urea Nitrogen 20 9-23 mg/dL Creatinine 1.01 0.550-1.02 mg/dL Glomerular Filtration Rate Calc 62 >90 mL/min BUN/Creatinine Ratio 19.8 10.0-20.0 Serum Glucose 156 H 74-106 mg/dL Calcium Level 9.5 8.7-10.4 mg/dL Total Bilirubin 0.7 0.2-1.0 mg/dL Aspartate Amino Transferase (AST) 17 13-40 U/L Alanine Aminotransferase (ALT) 13 7-40 U/L Alkaline Phosphatase 104 46-116 U/L Troponin I High Sensitivity 33 </=34 ng/L B-Type Natriuretic Peptide 619.73 0-100 pg/mL Total Protein 6.5 5.7-8.2 g/dL Albumin 4.1 3.2-4.8 g/dL Current Medications Medications (Trade) Dose Ordered Sig/Jeanne Route Start Time Stop Time Status Last Admin Albuterol (Ventolin Medneb) 2.5 mg ONCE ONCE NEB 07/23/24 23:15 07/23/24 23:16 DC 07/23/24 23:51 Ipratropium [place] (Atrovent Medneb) 0.5 mg ONCE ONCE NEB 07/23/24 23:15 07/23/24 23:16 DC 07/23/24 23:51 [place] [id number] Ph: [phone] DIAGNOSTIC IMAGING Diagnostic Imaging Report : [id number] Signed PATIENT: KESHIA CASTILLO ACCT: [id number] UNIT: [id number] : 1960 LOC: ER ROOM / BED: / AGE / SEX: 63 / F ADM STATUS: REG ER SERVICE [id number] ORDERING PHYSICIAN: FERCHO FRIEND MD PROCEDURE(s): CXR1 - CHEST XRAY 1 VIEW REASON: cp ORDER NUMBER(s): [id number], ACCESSION NUMBER(s): [id number] CHEST RADIOGRAPH Indication: cp Technique: Single frontal view of the chest was obtained COMPARISON: XY CHEST PORTABLE on DOS: 06/02/24, XY CHEST PORTABLE on DOS: 06/01/24, XY CHEST PORTABLE on DOS: 05/31/24, XY CHEST PORTABLE on DOS: 05/30/24, XY CHEST PORTABLE on DOS: 05/29/24 FINDINGS: Lines and Tubes: None Lungs: No abnormality demonstrated. Pleura: No effusion. No pneumothorax. Cardiomediastinal contours: Mild cardiomegaly IMPRESSION: No acute abnormality demonstrated. ATED BY: SPENCER PÉREZ MD DICTATED DATE/TIME: 07/23/242334 SIGNED BY: SPENCER PÉREZ MD SIGNED DATE/TIME: 07/23/242334 CC: Time of 1ST Reevaluation: 23:50 Reevaluation 1ST: Unchanged Patient Education/Counseling: Treatment, Need For Follow Up Family Education/Counseling: No Family Present Departure 1 Departure Time of Disposition: 00:21 Impression: Primary Impression: Acute exacerbation of chronic obstructive pulmonary disease (COPD) Disposition: ADMITTED INPATIENT Condition: Stable Comments 63-year-old female with history of COPD, coronary artery disease, congestive heart failure presents to the emergency department with shortness of breath. Presentation suggestive of COPD exacerbation, requiring more oxygen than baseline. Patient recently admitted to this facility in May/2014 requiring intubation during the admission. Steroids, respiratory treatment administered in the ED. Patient admitted for further treatment, evaluation and monitoring. Extensive evaluation was performed in attempt to identify or rule out: (See differential diagnosis section) The following tests were ordered, and results were reviewed by me: (See diagnostic results section) The following test were independently interpreted by me: EKG I reviewed and agreed with the following test results read by other providers: Chest x-ray I reviewed the following notes from the pt's past medical encounters: May 152024 encounter for community acquired pneumonia Additional information was gathered from interviewing the following independent historians: EMS Discussion of management or test interpretation with external physician/other qualified health career information specialist: N/A Addressed one or more chronic illnesses with severe exacerbation, progression, or side effects of treatment: COPD Decision regarding hospitalization or escalation of hospital level of care: Risk and benefits of admission for further treatment of patient's condition was considered. Due to patient's current clinical condition, high risk of decline and poor outcome if discharged and need for further inpatient management and monitoring, patient will be admitted to the hospital. Drug therapy requiring intensive monitoring for toxicity: N/A Parenteral controlled substances: N/A Decision regarding elective major surgery with identified patient or procedure risk factors: N/A Decision regarding emergency major surgery: N/A Decision not to resuscitate or to de-escalate care because of poor prognosis: N/A Diagnosis or treatment significantly limited by social determinants of health: N/A Critical Care Note Critical Care Time?: No Stability Stability form required: No Heart Score Heart Score: Heart Score Response (Comments) Value History Moderate Suspicious 1 EKG Normal 0 Age >65 2 Risk Factors >3 or Hx ASHD 2 Troponin Normal limit 0 Total 5 I personally scribed for FERCHO FRIEND MD ([email or web address]) on 07/23/24 at 23:43. Electronically submitted by Wayne Johnson ([email or web address]). I personally scribed for FERCHO FRIEND MD ([email or web address]) on 07/23/24 at 23:59. Electronically submitted by Wayne Johnson ([email or web address]). FERCHO FRIEND MD Jul 23, 2024 23:43
[2024-07-23 23:51] VITALS: PULSE 89; RESP 24; O2SAT 95
[2024-07-23] MEDS: ALBUTEROL SULF 2.5 MG/0.5ML(0.5%) NEB SOLN NEB ONE (23:51)
[2024-07-23] MEDS: IPRATROPIUM BROM 0.5 MG/2.5ML INH SOL NEB ONE (23:51)
[2024-07-23 23:53] LABS: Basophils # (auto) 0 10 ^3/uL (0-0.2); Basophils % (auto) 0.6 % (0.0-2.0); Eosinophils # (auto) 0.1 10 ^3/uL (0-0.8); Eosinophils % (auto) 2.3 % (0.0-7.0); Hematocrit 36.1 % (36.0-46.0); Hemoglobin 12.1 g/dL (12.2-16.2); Lymphocytes # (auto) 0.9 10 ^3/uL (0.4-5.4); Lymphocytes % (auto) 16.9 % (10.0-50.0); Mean Corpuscular Hemoglobin 30.5 pg (28.0-32.0); Mean Corpuscular Hgb Conc. 33.5 g/dL (32.0-36.0); Mean Corpuscular Volume 91.2 fL (80.0-100.0); Monocytes # (auto) 0.3 10 ^3/uL (0-1.3); Monocytes % (auto) 5.2 % (0.0-12.0); Neutrophils # (auto) 3.8 10 ^3/uL (1.6-8.6); Platelet Count (auto) 107 10^3/uL (140-450); Red Blood Cells 3.96 10^6/uL (4.0-5.20); Red Cell Distribution Width 15.7 % (11.8-14.3); White Blood Cell 5.1 10^3/uL (4.4-10.8)
[2024-07-24] VITALS (11 sets, daily range): BP systolic 113–178; BP diastolic 61–73; PULSE 71–86; RESP 13–22; TEMP 97.5–98.3; O2SAT 21–99
[2024-07-24 00:06] LABS: Alanine Aminotransferase 13 U/L (7-40); Alkaline Phosphatase 104 U/L (46-116); Anion Gap 11 (5-15); Aspartate Aminotransferase 17 U/L (13-40); BUN/Creatinine Ratio 19.8 (10.0-20.0); Blood Urea Nitrogen 20 mg/dL (9-23); Calcium 9.5 mg/dL (8.7-10.4); Carbon Dioxide 23 mmol/L (20-31); Potassium 3.7 mmol/L (3.5-5.1); Sodium 141 mmol/L (136-145); Total Protein 6.5 g/dL (5.7-8.2)
[2024-07-24 00:07] LABS: Albumin 4.1 g/dL (3.2-4.8); Bilirubin, Total 0.7 mg/dL (0.2-1.0)
[2024-07-24 00:10] LABS: Chloride 107 mmol/L (98-107)
[2024-07-24 00:11] LABS: Glucose 156 mg/dL (74-106)
[2024-07-24] MEDS ORDERED: DEXTROSE (50%) 50ML SYRG IV PRN ×2 (01:15→12:00)
[2024-07-24] MEDS ORDERED: ONDANSETRON HCL 4 MG/2 ML VIAL IV PRN (01:15)
[2024-07-24 01:32] LABS: Base Excess -0.1 mmol/L (-2.0-3.0)
[2024-07-24] MEDS: methylPREDNISolone SOD SUCC 40 MG/ML VL ONE ×2 (01:51→01:56)
[2024-07-24] MEDS: methylPREDNISolone SOD SUCC 40 MG/ML VL IV SCH (02:49)
[2024-07-24] MEDS: methylPREDNISolone SOD SUCC 125 MG/2 ML VL IV ONE (02:56)
--- NOTE | 2024-07-24 04:01 | DVHHP2 ---
History of Present Illness Reason for Visit: Shortness for breath History of Present Illness 63-year-old female presents for evaluation of shortness for breath. Patient with a history of COPD with as needed home oxygen and congestive heart failure presents for shortness for breath over the past two days. Patient reports using her inhaler and nebulizer at home without relief of the symptoms. She has been having a nonproductive cough. Denies chest pain or palpitations. No fever. No other acute complaints reported. Past Medical History CAD (s/p JOE ), CHF, COPD, DM, HTN Past Surgical History None Family History Noncontributory Smoke: No ALCOHOL: none Drugs: None Lives: with Family Review of Systems Review of Systems Review of systems are currently negative otherwise addressed HPI. Allergies: Coded Allergies: NO KNOWN ALLERGIES (Unverified , 04/04/24) Medications Current Medications Medications Dose Ordered Sig/Jeanne Route Start Time Stop Time Status Last Admin Dose Admin Albuterol 2.5 mg Q6HPRN PRN NEB 07/24/24 01:15 Ipratropium [place] 0.5 mg Q6HPRN PRN NEB 07/24/24 01:15 Pantoprazole Sodium 40 mg DAILY@0600 PO 07/24/24 06:00 Clopidogrel Bisulfate 75 mg DAILY PO 07/24/24 10:00 Atorvastatin Calcium 80 mg HS PO 07/24/24 22:00 Amiodarone HCl 200 mg DAILY PO 07/24/24 10:00 Gabapentin 800 mg BID PO 07/24/24 10:00 Metoprolol Succinate 25 mg DAILY PO 07/24/24 10:00 Montelukast Sodium 10 mg HS PO 07/24/24 22:00 Methylprednisolone Sodium Succinate 40 mg BID IV 07/24/24 10:00 Diagnostic Test (Pha) 1 strip ACHS 07/24/24 07:00 Insulin Human Regular ACHS SC 07/24/24 07:00 Dextrose 50 ml UD PRN IV 07/24/24 01:15 Ondansetron HCl 4 mg Q4HP PRN IV 07/24/24 01:15 Enoxaparin Sodium 40 mg DAILY SC 07/24/24 10:00 Acetaminophen 650 mg Q6HP PRN PO 07/24/24 01:15 Exam Vital Signs Vital Signs Date Time Temp Pulse Resp B/P (MAP) Pulse Ox O2 Delivery O2 Flow Rate FiO2 07/23/24 23:59 93 07/23/24 23:51 24 95 4.0 36 07/23/24 23:51 Nasal Cannula* 07/23/24 22:55 97.9 185/63 (103) Exam Gen: 63-year-old female in mild distress. Skin: Warm, dry, normal color and texture, no rash. HEENT: Normocephalic atraumatic, mucous membranes moist and pink. Neck: Cervical and supraclavicular nodes normal without enlargement, trachea is midline, thyroid gland is normal without masses. Pulmonary: Bilateral wheezing Cardiac: Regular rate and rhythm. No murmur Abdomen: Soft, nontender, nondistended, bowel sounds present all 4 quadrants, no guarding, no rigidity, no organomegaly. Extremities: No cyanosis, clubbing, no edema Neuro: Cranial nerves II through XII grossly intact, normal affect and speech, no focal motor deficits. Labs/Xrays ORDERING PHYSICIAN: SINGH SALMERON MD PROCEDURE(s): ECIDC - ECHO 2D MODE CARDIAC DOP REASON: EF ORDER NUMBER(s): [id number], ACCESSION NUMBER(s): [id number] APPROVED REPORT EXAM: Two-dimensional and M-mode echocardiogram with Doppler and color Doppler. Blood Pressure: 102/62 mmHg INDICATION EF RISK FACTORS Height: 5'1", Weight: 246 DIMENSIONS LVDd 4.9 (3.8-5.7cm) LA (2D) 5.0 (1.9-4.0cm) Aortic Root 2.8 (2.0- 3.7cm) LVDs 4.1 (2.5-4.0cm) LA (MM) (1.9-4.0cm) Aortic Cusp Exc 1.8 (1.5- 2.0cm) EF (%) 30.0 (55-70%) Rt. Atrium 3.9 (1.9-4.0cm) Asc. Aorta cm IVSd 1.5 (0.7-1.1cm) RV (D) (1.8-2.4cm) PWd 1.3 (0.7-1.1cm) Mitral Valve Mitral Mitral Stenosis E wave 1.07m/s MV Mean GR. mmHg A wave 0.87m/s MV Peak GR. mmHg E/A ratio 1.2 2D MVA cm2 DECEL Time 180ms PRESS 1/2 Time ms Aortic Valve Aortic Valve Aortic Stenosis V1 0.96m/s AO Mean GR. 5mmHg V2 1.49m/s AO Peak GR. 9mmHg LVOT Diameter 1.9 (1.8-2.4cm) Doppler LILIANA 1.83cm2 Pulmonic Valve V2 0.99m/s LEFT VENTRICLE The left ventricle is of normal size. Wall thickness is ozdc-fk-pnegqrsgqp increased. Ejection fraction is decreased and is estimated at 25-30% based on visual estimate. There is ymamvzpz-kp-fvacpe global hypokinesis. There is a grade II diastolic dysfunction. RIGHT VENTRICLE The right ventricle is of normal size. Right ventricular systolic function is normal. ATRIA The left atrium is severely dilated in size. The right atrium was of normal size. Not well visualized. MITRAL VALVE There is moderate to severe mitral annular calcification. There is mild central mitral regurgitation. There is mild mitral stenosis with a mean gradient of 5 mm Hg at a heart rate of 82 beats per minute. PULMONIC VALVE Likely normal. TRICUSPID VALVE Normal structure and function. There is trace tricuspid regurgitation. PA systolic pressure is not adequately estimated. AORTIC VALVE The leaflets are sclerotic. No significant stenosis or regurgitation. GREAT VESSELS Aortic root is of normal size. Proximal ascending aorta is not visualized. PERICARDIAL EFFUSION There is small pericardial effusion. IVC is dilated in size. Conclusion Normal left ventricular size with an ejection fraction of 25-30%. There is lpkxepxj-bp-ucpyng global hypokinesis of the left ventricle. Ausv-xj-ehhqsygr concentric left ventricular hypertrophy. Normal right ventricular size and systolic function. Grade II diastolic dysfunction. Yuccrzco-hb-bmaczh mitral annular calcification with mild mitral stenosis. Small pericardial effusion. PA systolic pressure is not adequately estimated. SIGNED BY: KANDY PRICE MD SIGNED DATE/TIME: 05/29/24 1320 ORDERING PHYSICIAN: FERCHO NOWAK MD PROCEDURE(s): CXR1 - CHEST XRAY 1 VIEW REASON: cp ORDER NUMBER(s): [id number], ACCESSION NUMBER(s): [id number] CHEST RADIOGRAPH Indication: cp Technique: Single frontal view of the chest was obtained COMPARISON: XY CHEST PORTABLE on DOS: 06/02/24, XY CHEST PORTABLE on DOS: 06/01/24, XY CHEST PORTABLE on DOS: 05/31/24, XY CHEST PORTABLE on DOS: 05/30/24, XY CHEST PORTABLE on DOS: 05/29/24 FINDINGS: Lines and Tubes: None Lungs: No abnormality demonstrated. Pleura: No effusion. No pneumothorax. Cardiomediastinal contours: Mild cardiomegaly IMPRESSION: No acute abnormality demonstrated. Labs Test 07/24/24 02:27 07/23/24 23:42 07/23/24 23:28 Range/Units Troponin I High Sensitivity 38 *H </=34 ng/L Blood Gas Specimen Type Arterial Blood Gas Sample Site Left radial Blood Gas Patient Temperature 37.0 Arterial Blood Date Drawn [id number] Arterial Blood pH 7.430 7.350-7.450 Arterial Blood Partial Pressure CO2 36.8 32.0-45.0 mmHg Arterial Blood Partial Pressure O2 53.9 *L 83.0-108.0 mmHg Arterial Blood HCO3 23.9 21.0-28.0 mmol/L Arterial Blood Oxygen Saturation 88.0 L 94.0-98.0 % Arterial Blood Base Excess -0.1 -2.0-3.0 mmol/L Arterial Blood Oxyhemoglobin 86.6 L 94.0-98.0 % Arterial Blood Carboxyhemoglobin 0.9 0.5-1.5 % Arterial Blood Methemoglobin 0.7 0.0-1.5 % Raciel Test Yes Blood Gas Total Hemoglobin 13.20 12.0-16.0 g/dL Blood Gas Liter Flow 2.00 Blood Gas Modality Nasal cannula Blood Gas Spontaneous Rate 24 FiO2 % 28.0 Blood Gas Critical Value Read Back Yes Blood Gas Notified Whom angela Nowak md Blood Gas Notified Time [id number] Blood Gas Notified By White Blood Count 5.1 4.4-10.8 10^3/uL Red Blood Count 3.96 L 4.0-5.20 10^6/uL Hemoglobin 12.1 L 12.2-16.2 g/dL Hematocrit 36.1 36.0-46.0 % Mean Corpuscular Volume 91.2 80.0-100.0 fL Mean Corpuscular Hemoglobin 30.5 28.0-32.0 pg Mean Corpuscular Hemoglobin Concent 33.5 32.0-36.0 g/dL Red Cell Distribution Width 15.7 H 11.8-14.3 % Platelet Count 107 L 140-450 10^3/uL Mean Platelet Volume 9.5 6.9-10.8 fL Neutrophils (%) (Auto) 75.0 37.0-80.0 % Lymphocytes (%) (Auto) 16.9 10.0-50.0 % Monocytes (%) (Auto) 5.2 0.0-12.0 % Eosinophils (%) (Auto) 2.3 0.0-7.0 % Basophils (%) (Auto) 0.6 0.0-2.0 % Neutrophils # (Auto) 3.8 1.6-8.6 10 ^3/uL Lymphocytes # (Auto) 0.9 0.4-5.4 10 ^3/uL Monocytes # (Auto) 0.3 0-1.3 10 ^3/uL Eosinophils # (Auto) 0.1 0-0.8 10 ^3/uL Basophils # (Auto) 0 0-0.2 10 ^3/uL Nucleated Red Blood Cells 0.0 % Sodium Level 141 136-145 mmol/L Potassium Level 3.7 3.5-5.1 mmol/L Chloride Level 107 98-107 mmol/L Carbon Dioxide Level 23 20-31 mmol/L Anion Gap 11 5-15 Blood Urea Nitrogen 20 9-23 mg/dL Creatinine 1.01 0.550-1.02 mg/dL Glomerular Filtration Rate Calc 62 >90 mL/min BUN/Creatinine Ratio 19.8 10.0-20.0 Serum Glucose 156 H 74-106 mg/dL Calcium Level 9.5 8.7-10.4 mg/dL Total Bilirubin 0.7 0.2-1.0 mg/dL Aspartate Amino Transferase (AST) 17 13-40 U/L Alanine Aminotransferase (ALT) 13 7-40 U/L Alkaline Phosphatase 104 46-116 U/L B-Type Natriuretic Peptide 619.73 0-100 pg/mL Total Protein 6.5 5.7-8.2 g/dL Albumin 4.1 3.2-4.8 g/dL Assessment/Plan Assessment/Plan Assessment Acute on chronic respiratory failure COPD exacerbation CHF Accelerated hypertension Diabetes mellitus Plan Admit the patient to [facility] to the hospitalist Med nebs Resume home medications Continue treatment per Plan discussed with: Patient My Orders Orders - MECHELLE LOPEZ Procedure Category Date Status Time Albuterol Medneb PHA 07/24/24 In Process (Ventolin Medneb) 01:15 Ipratropium Medneb PHA 07/24/24 In Process (Atrovent Medneb) 01:15 Atorvastatin (Lipitor) PHA 07/24/24 In Process 22:00 Amiodarone Tablet PHA 07/24/24 In Process (Cordarone Tablet) 10:00 Gabapentin Capsule PHA 07/24/24 In Process (Neurontin Capsule) 10:00 Metoprolol Xl PHA 07/24/24 In Process Succinate (Toprol Xl) 10:00 Montelukast Tablet PHA 07/24/24 In Process (Singulair Tablet) 22:00 Basic Metabolic Panel LAB 07/25/24 Verified 04:00 Methylprednisolone PHA 07/24/24 In Process Sod Succ (Solu Medrol 10:00 Glucose Blood PHA 07/24/24 In Process (Accu-Chek Comfort 07:00 Insulin R (Human) PHA 07/24/24 In Process (Insulin R) 07:00 Dextrose 50% Syringe PHA 07/24/24 In Process 01:15 Admit ADMIT 07/24/24 Transmitted 01:10 Ondansetron Hcl PHA 07/24/24 In Process (Zofran) 01:15 Enoxaparin Sodium PHA 07/24/24 In Process (Lovenox) 10:00 Complete Blood Count LAB 07/25/24 Verified 04:00 Cardiac DIET 07/24/24 Transmitted Diet-2gna,Lofat,Lochol Breakfast Condition: Stable LISET 07/24/24 In Process 01:10 Acetaminophen Tablet PHA 07/24/24 In Process (Tylenol Tablet) 01:15 Bedrest With Bathroom LISET 07/24/24 In Process Privileg 01:10 Pantoprazole Tablet PHA 07/24/24 In Process (Protonix Tablet) 06:00 Clopidogrel Bisulfate PHA 07/24/24 In Process (Plavix) 10:00 Date of Service: Jul 24, 2024 Billing Provider: MECHELLE LOPEZ Common Visit Codes: [id number] INP/OBS CARE (HIGH) MECHELLE LOPEZ Jul 24, 2024 04:01
[2024-07-24] MEDS: InsuLIN REG 1unit/0.01ml Soln (100units/ml) SC SCH ×3 (06:35→23:01)
[2024-07-24] MEDS: PANTOPRAZOLE 40 MG TAB PO SCH (06:37)
--- NOTE | 2024-07-24 06:40 | ECG ---
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
[2024-07-24] MEDS: IPRATROPIUM BROM 0.5 MG/2.5ML INH SOL NEB PRN (06:59)
[2024-07-24] MEDS: ALBUTEROL SULF 2.5 MG/0.5ML(0.5%) NEB SOLN NEB PRN (06:59)
[2024-07-24] MEDS: ACCU-CHEK COMFORT CURVE STRIP VI SCH ×2 (07:00→11:30)
[2024-07-24 09:01] LABS: Basophils # (auto) 0 10 ^3/uL (0-0.2); Basophils % (auto) 0.3 % (0.0-2.0); Eosinophils # (auto) 0 10 ^3/uL (0-0.8); Eosinophils % (auto) 0.1 % (0.0-7.0); Hematocrit 39.3 % (36.0-46.0); Hemoglobin 12.7 g/dL (12.2-16.2); Lymphocytes # (auto) 0.3 10 ^3/uL (0.4-5.4); Lymphocytes % (auto) 8.3 % (10.0-50.0); Mean Corpuscular Hemoglobin 29.5 pg (28.0-32.0); Mean Corpuscular Hgb Conc. 32.2 g/dL (32.0-36.0); Mean Corpuscular Volume 91.5 fL (80.0-100.0); Monocytes # (auto) 0 10 ^3/uL (0-1.3); Monocytes % (auto) 1.1 % (0.0-12.0); Neutrophils # (auto) 2.9 10 ^3/uL (1.6-8.6); Neutrophils % (auto) 90.2 % (37.0-80.0); Nucleated Red Blood Cells % 0.2 %; Platelet Count (auto) 102 10^3/uL (140-450); Red Cell Distribution Width 15.8 % (11.8-14.3); White Blood Cell 3.2 10^3/uL (4.4-10.8)
[2024-07-24 09:20] LABS: Partial Thromboplastin Time 25.4 SEC (24.5-34.5); Prothrombin Time 10.6 sec (9.3-11.8)
[2024-07-24 09:36] LABS: Alanine Aminotransferase 12 U/L (7-40); Albumin 4.4 g/dL (3.2-4.8); Alkaline Phosphatase 98 U/L (46-116); Anion Gap 8 (5-15); Aspartate Aminotransferase 15 U/L (13-40); BUN/Creatinine Ratio 16.8 (10.0-20.0); Blood Urea Nitrogen 19 mg/dL (9-23); Calcium 9.6 mg/dL (8.7-10.4); Carbon Dioxide 23 mmol/L (20-31); Chloride 106 mmol/L (98-107); Magnesium 1.9 mg/dL (1.6-2.6); Potassium 4.2 mmol/L (3.5-5.1); Sodium 137 mmol/L (136-145); Total Protein 6.9 g/dL (5.7-8.2)
[2024-07-24 09:37] LABS: Bilirubin, Total 0.7 mg/dL (0.2-1.0)
[2024-07-24 09:39] LABS: Lactic Acid w/Reflex 2.1 mmol/L (0.4-2.0)
[2024-07-24 09:49] LABS: Blood Alcohol < 3.0 mg/dL (<10); Glucose 285 mg/dL (74-106)
[2024-07-24] MEDS: AZITHROMYCIN 500MG/ 250ML 250 ML IV SCH (10:00)
[2024-07-24] MEDS: ENOXAPARIN SOD 40 MG/0.4 ML SYRINGE SC SCH (10:00)
[2024-07-24] MEDS: CLOPIDOGREL BISULFATE 75 MG TAB PO SCH (10:41)
[2024-07-24] MEDS: GABAPENTIN 400 MG CAP PO SCH (10:41)
[2024-07-24] MEDS: LORazepam 0.5 MG TAB PO ONE (10:41)
[2024-07-24] MEDS: AMIODARONE HCL 200 MG TAB PO SCH (10:45)
[2024-07-24] MEDS: METOPROLOL SUCCINATE XL 50 MG TAB PO SCH (10:47)
[2024-07-24] MEDS: FUROSEMIDE 40 MG/4 ML VIAL IV SCH (10:47)
[2024-07-24 10:58] LABS: COVID19 ANTIGEN SOFIA FIA NEGATIVE (NEGATIVE); Rapid Influenza A Negative (Negative); Rapid Influenza B Negative (Negative)
--- NOTE | 2024-07-24 11:44 | DVHPNRES ---
Progress Note Date Seen: Jul 24, 2024 Resident Creating Document: [facility] RESIDENT Medical Necessity Reason Pt with a Central, PICC or Fol: No Subjective Review of Systems KESHIA CASTILLO is a 58-year-old male with a PMH of CAD, CHF, COPD, DM, HTN, AFib presented to the ED with the chief complaints of shortness of breath. Patient is currently on home oxygen 2 L as needed med yesterday patient started having worsening of shortness of breath associated with chills which is not relieved by inhaler and nebulizer, which brought her to visit ED. on my assessment patient denies fever, nausea, vomiting and a chest pain, palpitations, diaphoresis, sick contacts and other acute associated symptoms PMH: COPD on 2 L O2 at home, CAD with s/p PTCA and 4 JOE , CHF, type 2 DM, HTN, AFib PSH: PTCA 4DES Family history: Noncontributory Social history: Lives with the family. Denies smoking, alcohol and other drug abuse Allergies: No known allergies Home medications: Metformin 1000 mg, glipizide 5 mg, gabapentin 800 mg t.i.d., Protonix 40 mg, clopidogrel 75 mg, metoprolol 25 mg, benazepril 20 mg, montelukast 10 mg, atorvastatin 80 mg, nitro, salt. Amiodarone was 100 mg Patient seen and examined at the bedside. Patient reported mild improvement in her symptoms and currently she is on 3-4 L oxygen [place]. Overnight events reviewed. Currently started on breathing treatments and azithromycin along with the Lasix. CXR showed pulmonary congestion. Continuously monitoring Objective vital signs Vital Sign Date Time Temp Pulse Resp B/P (MAP) Pulse Ox O2 Delivery O2 Flow Rate FiO2 07/24/24 10:47 171/54 07/24/24 10:47 84 07/24/24 08:00 16 94 Nasal Cannula* 4 36 07/24/24 07:33 98.7 98.7 medications Current Medications Medications Dose Ordered Sig/Jeanne Route Start Time Stop Time Status Last Admin Dose Admin Albuterol 2.5 mg Q6HPRN PRN NEB 07/24/24 01:15 07/24/24 06:59 2.5 MG Ipratropium [place] 0.5 mg Q6HPRN PRN NEB 07/24/24 01:15 07/24/24 06:59 0.5 MG Pantoprazole Sodium 40 mg DAILY@0600 PO 07/24/24 06:00 07/24/24 06:37 40 MG Clopidogrel Bisulfate 75 mg DAILY PO 07/24/24 10:00 07/24/24 10:41 75 MG Atorvastatin Calcium 80 mg HS PO 07/24/24 22:00 Amiodarone HCl 200 mg DAILY PO 07/24/24 10:00 07/24/24 10:45 200 MG Gabapentin 800 mg BID PO 07/24/24 10:00 07/24/24 10:41 800 MG Metoprolol Succinate 25 mg DAILY PO 07/24/24 10:00 07/24/24 10:47 25 MG Montelukast Sodium 10 mg HS PO 07/24/24 22:00 Methylprednisolone Sodium Succinate 40 mg BID IV 07/24/24 10:00 07/24/24 10:45 40 MG Diagnostic Test (Pha) 1 strip ACHS 07/24/24 07:00 Insulin Human Regular ACHS SC 07/24/24 07:00 07/24/24 06:35 4 UNITS Dextrose 50 ml UD PRN IV 07/24/24 01:15 Ondansetron HCl 4 mg Q4HP PRN IV 07/24/24 01:15 Enoxaparin Sodium 40 mg DAILY SC 07/24/24 10:00 Acetaminophen 650 mg Q6HP PRN PO 07/24/24 01:15 Azithromycin 250 ml @ 125 mls/hr DAILY IV 07/24/24 10:00 Furosemide 40 mg DAILY IV 07/24/24 10:00 07/24/24 10:47 40 MG Pantoprazole Sodium 40 mg DAILY IV 07/25/24 10:00 UNV Examination Pt is lying on bed General Appearance: Alert, Oriented X3, Cooperative, Mild distress HEENT: Atraumatic, Mucous membranes moist/pink Respiratory: Clear to auscultation, Normal air movement, crackles Cardiovascular: Regular rate, Normal S1, Normal S2, Abdominal: Active bowel sounds, Soft, no distention, no tenderness Extremities: 1+ edema in the right lower extremity edema, Normal pulses, No tendernes Skin: No Significant rash, except past surgical scars Neuro: Normal speech, sensorimotor deficits none Psych/Mental Status: Mental status NL, Mood NL Nurse was there as sharperone during examination laboratory and microbiology Laboratory Tests 07/24/24 08:33 Test 07/24/24 08:33 Range/Units Serum Glucose 285 H 74-106 mg/dL Labs and/or images reviewed: Labs reviewed by me, Image(s) reviewed by me Problem List/Assessment/Plan Problem List/Assessment/Plan # Acute on chronic hypoxic respiratory failure # COPD exacerbation # ? Sepsis - currently on 4 L oxygen [place] - med surge unit - ordered CXR, pulmonary congestion - currently giving breathing treatments - Cefepime, doxy and methylprednisolone 40 mg - ordered a respiratory cultures - monitor respiratory distress symptoms # ? acute on chronic systolic and diastolic CHF exacerbation # NSTEMI II likely due to above # uncontrolled HTN - elevated BNP and troponins - reviewed EKG, sinus rhythm no ST changes - Lasix 40, metoprolol 25 - hold MEENU inhibitors as kidney function is worsening - strict I and O, fluid restriction - recent echocardiogram in May showed EF 25-30% # CAD with PTCA # dyslipidemia - resume clopidogrel - Lipitor # uncontrolled type 2 DM - pending HbA1c - Accu-Cheks and mild ISS # H/o Afib - resumed on amiodarone Protonix Lovenox Diabetic diet Goals of care discussed with the patient for more than 27 minutes: Full code status Case discussed with Dr. Barraza, patient and nurse Plan discussed with: Patient, Daughter My Orders My Orders Orders - [facility] Procedure Category Date Status Time Drug Screen LAB 07/24/24 Logged 08:14 Hemoglobin A1c LAB 07/24/24 In Process 08:14 Urinalysis LAB 07/24/24 Logged 08:14 Respiratory Culture ABIGAIL 07/24/24 Logged W/ Gs 08:14 Azithromycin 500mg/ PHA 07/24/24 In Process 250ml (Zithromax 50 10:00 Furosemide Injection PHA 07/24/24 In Process (Lasix Injection) 10:00 Pantoprazole PHA 07/25/24 Logged (Protonix) 10:00 Date of Service: Jul 24, 2024 Billing Provider: BRAIN MOLINA MD Common Visit Codes: [id number] INP/OBS CARE(HIGH) [facility] Jul 24, 2024 11:44 BRAIN MOLINA MD Jul 28, 2024 23:39
[2024-07-24] MEDS: SODIUM CHLORIDE 0.9% 500 ML IV ONE (13:00)
[2024-07-24] MEDS: DOXYCYCLINE 100MG/100ML 100 ML IV SCH (13:25)
[2024-07-24] MEDS: hydrALAZINE HCL 20 MG/ML VL IV ONE (13:28)
--- NOTE | 2024-07-24 13:45 | DVH ---
INDICATION: Rule out cirrhosis, pain TECHNIQUE: Multiple real-time sonographic images were obtained of the right upper quadrant. COMPARISON: 05/29/2024 FINDINGS: The liver demonstrates coarsened echotexture without focal mass lesions. The liver measures 17 cm. There is no intrahepatic or extrahepatic ductal dilatation. The common duct measures 5 mm. There are gallstones. There is gallbladder wall thickening measuring 3 mm. Focal gallbladder wall th ickening at the gallbladder fundus may reflect comet tail artifact. Gallbladder is contracted which l imits evaluation. The right kidney measures 9.4 cm. The right kidney is normal in contour, size, and shape. The echoge nicity is normal. There is no hydronephrosis. The pancreas is not well visualized due to overlying bowel gas. IMPRESSION: Cholelithiasis without sonographic evidence of acute cholecystitis. Coarsened liver echotexture suggestive of chronic liver disease.
[2024-07-24] MEDS: CEFEPIME 1GM/ 50ML 50 ML IV ONE (15:10)
[2024-07-24 15:42] LABS: Lactic Acid w/Reflex 2.6 mmol/L (0.4-2.0)
[2024-07-24] MEDS: hydrALAZINE HCL 20 MG/ML VL IV PRN (15:57)
[2024-07-24] MEDS ORDERED: ACCU-CHEK COMFORT CURVE STRIP VI SCH (17:00)
--- NOTE | 2024-07-24 17:40 | DVH ---
EXAM: CT CHEST WITHOUT CONTRAST History: SOB PNA Comparison Study: None available TECHNIQUE: Multidetector CT of the chest was performed. Imaging was performed without IV contrast. Ax ial, coronal, and sagittal multiplanar reformats were obtained from the axial data set by the technol filipe. Radiation Dose : CTDI vol 27.66 mGy, DLP 1137.44 mGy*cm. Findings: Lungs: Scattered micro nodules. The are otherwise lungs are clear. Pleura: Unremarkable Heart/Great vessels: Mild cardiomegaly. No pericardial effusion. Severe coronary atherosclerosis moy vangie stents. Mediastinum: Unremarkable Soft tissues/Bones: Unremarkable Cholelithiasis. The partially visualized upper abdomen is within normal limits. Impression: 1. No acute cardiopulmonary disease. 2. Mild cardiomegaly.
--- NOTE | 2024-07-24 18:30 | DVH ---
EXAM: US BILAT LOWER DVT Clinical History: Tender and leg swollen Comparison: US RT LOWER DVT on DOS: 05/26/24 Technique: Duplex Doppler evaluation of the deep venous systems of both lower extremities from the common femora l veins to the popliteal veins including color Doppler and spectral/pulsed waveform analysis was perf ormed. Findings: No visible intraluminal venous thrombus. No evidence of incompressibility or abnormal color or spectr al Doppler flow visualized in the deep bilateral lower extremity veins. Proximal greater saphenous ve ins are grossly unremarkable. Impression: 1. No sonographic evidence of deep venous thrombosis throughout the bilateral lower extremities from the popliteal veins to the common femoral veins.
[2024-07-24] MEDS: IPRATROPIUM BROM 0.5 MG/2.5ML INH SOL NEB SCH (20:13)
[2024-07-24] MEDS: ALBUTEROL SULF 2.5 MG/0.5ML(0.5%) NEB SOLN NEB SCH (20:13)
[2024-07-24] MEDS: CEFEPIME 1GM/ 50ML 50 ML IV SCH (21:06)
[2024-07-24] MEDS: ATORVASTATIN 20 MG TAB PO SCH (21:12)
[2024-07-24] MEDS: MONTELUKAST SODIUM 10 MG TAB PO SCH (21:12)
[2024-07-24] MEDS: ACETAMINOPHEN 325 MG TAB PO PRN (23:24)
[2024-07-25] VITALS (16 sets, daily range): BP systolic 95–115; BP diastolic 51–71; PULSE 64–93; RESP 15–20; TEMP 97.3–98.7; O2SAT 94–100
[2024-07-25 07:20] LABS: Chloride 105 mmol/L (98-107); Potassium 4.4 mmol/L (3.5-5.1); Sodium 138 mmol/L (136-145)
[2024-07-25 07:21] LABS: Anion Gap 8 (5-15); Calcium 9.8 mg/dL (8.7-10.4); Carbon Dioxide 25 mmol/L (20-31)
[2024-07-25 07:24] LABS: Basophils # (auto) 0 10 ^3/uL (0-0.2); Eosinophils # (auto) 0 10 ^3/uL (0-0.8); Hematocrit 37.8 % (36.0-46.0); Hemoglobin 12.5 g/dL (12.2-16.2); Lymphocytes # (auto) 0.4 10 ^3/uL (0.4-5.4); Mean Corpuscular Hemoglobin 29.7 pg (28.0-32.0); Mean Corpuscular Volume 90.2 fL (80.0-100.0); Monocytes # (auto) 0.2 10 ^3/uL (0-1.3); Monocytes % (auto) 3.2 % (0.0-12.0); Neutrophils # (auto) 4.1 10 ^3/uL (1.6-8.6); Neutrophils % (auto) 87.8 % (37.0-80.0); Nucleated Red Blood Cells % 0.1 %; Red Blood Cells 4.19 10^6/uL (4.0-5.20); Red Cell Distribution Width 15.4 % (11.8-14.3); White Blood Cell 4.7 10^3/uL (4.4-10.8)
[2024-07-25 07:26] LABS: BUN/Creatinine Ratio 25.2 (10.0-20.0); Blood Urea Nitrogen 26 mg/dL (9-23); Glucose 252 mg/dL (74-106)
[2024-07-25 07:42] LABS: Platelet Count (auto) 115 10^3/uL (140-450)
[2024-07-25] MEDS: PANTOPRAZOLE 40 MG/10 ML VIAL INJ IV SCH (09:23)
--- NOTE | 2024-07-25 12:44 | DVHPNRES ---
Progress Note Date Seen: Jul 25, 2024 Resident Creating Document: [facility] RESIDENT Medical Necessity Reason Pt with a Central, PICC or Fol: No Subjective Review of Systems KESHIA CASTILLO is a 58-year-old male with a PMH of CAD, CHF, COPD, DM, HTN, AFib presented to the ED with the chief complaints of shortness of breath. Patient seen and examined at the bedside. Patient reported improvement in her symptoms and currently she is on 2 L oxygen [place]. Overnight events reviewed. Objective vital signs Vital Sign Date Time Temp Pulse Resp B/P (MAP) Pulse Ox O2 Delivery O2 Flow Rate FiO2 07/25/24 12:33 98.4 64 18 115/51 (72) 94 98.4 07/25/24 06:35 Nasal Cannula* 2 28 Total Intake and Output 07/24/24 07/24/24 07/25/24 15:00 23:00 07:00 Intake Total 350 ml Output Total 500 ml Balance -150 ml medications Current Medications Medications Dose Ordered Sig/Jeanne Route Start Time Stop Time Status Last Admin Dose Admin Clopidogrel Bisulfate 75 mg DAILY PO 07/24/24 10:00 07/25/24 09:23 75 MG Atorvastatin Calcium 80 mg HS PO 07/24/24 22:00 07/24/24 21:12 80 MG Amiodarone HCl 200 mg DAILY PO 07/24/24 10:00 07/25/24 09:23 200 MG Gabapentin 800 mg BID PO 07/24/24 10:00 07/25/24 09:22 800 MG Metoprolol Succinate 25 mg DAILY PO 07/24/24 10:00 07/24/24 10:47 25 MG Montelukast Sodium 10 mg HS PO 07/24/24 22:00 07/24/24 21:12 10 MG Methylprednisolone Sodium Succinate 40 mg BID IV 07/24/24 10:00 07/25/24 11:00 40 MG Ondansetron HCl 4 mg Q4HP PRN IV 07/24/24 01:15 Enoxaparin Sodium 40 mg DAILY SC 07/24/24 10:00 07/25/24 09:22 40 MG Pantoprazole Sodium 40 mg DAILY IV 07/25/24 10:00 07/25/24 09:23 40 MG Insulin Human Regular AC SC 07/24/24 11:30 07/25/24 11:30 16 UNITS Insulin Human Regular HS SC 07/24/24 22:00 07/24/24 23:01 6 UNITS Dextrose 50 ml UD PRN IV 07/24/24 12:00 Diagnostic Test (Pha) 1 strip ACHS 07/24/24 11:30 07/25/24 11:30 1 STRIP Cefepime HCl 50 ml @ 12.5 mls/hr Q8HR IV 07/24/24 22:00 07/25/24 05:50 12.5 MLS/HR Doxycycline Hyclate 100 ml @ 50 mls/hr Q12H IV 07/24/24 13:00 07/25/24 01:00 50 MLS/HR Hydralazine HCl 10 mg Q6HP PRN IV 07/24/24 13:15 Albuterol 2.5 mg Q6HR NEB 07/24/24 18:00 07/25/24 12:01 2.5 MG Ipratropium [place] 0.5 mg Q6HR NEB 07/24/24 18:00 07/25/24 12:01 0.5 MG Furosemide 40 mg DAILY PO 07/26/24 10:00 UNV Ibuprofen 400 mg Q8HP PRN PO 07/25/24 12:45 UNV Melatonin 10 mg HS PO 07/25/24 22:00 UNV Examination Pt is lying on bed General Appearance: Alert, Oriented X3, Cooperative, Mild distress HEENT: Atraumatic, Mucous membranes moist/pink Respiratory: Clear to auscultation, Normal air movement, crackles improved Cardiovascular: Regular rate, Normal S1, Normal S2, Abdominal: Active bowel sounds, Soft, no distention, no tenderness Extremities: 1+ edema in the right lower extremity edema, Normal pulses, No tendernes Skin: No Significant rash, except past surgical scars Neuro: Normal speech, sensorimotor deficits none Psych/Mental Status: Mental status NL, Mood NL Nurse was there as sharperone during examination laboratory and microbiology Laboratory Tests 07/25/24 06:41 Test 07/25/24 06:41 Range/Units Serum Glucose 252 H 74-106 mg/dL Labs and/or images reviewed: Labs reviewed by me, Image(s) reviewed by me Problem List/Assessment/Plan Problem List/Assessment/Plan # Acute on chronic hypoxic respiratory failure-improving # COPD exacerbation- improving # ? G+/- BActerial PNA Acute # ? Sepsis fron PNA - currently on 2 L oxygen [place] - med surge unit - ordered CXR, pulmonary congestion - currently giving breathing treatments - Cefepime, doxy and methylprednisolone 40 mg - ordered a respiratory cultures - monitor respiratory distress symptoms -chest CT showed cardiomegaly # ? acute on chronic systolic and diastolic CHF exacerbation # NSTEMI II likely due to above # uncontrolled HTN - elevated BNP and troponins - reviewed EKG, sinus rhythm no ST changes - Lasix 40, metoprolol 25 - hold MEENU inhibitors as kidney function is worsening - strict I and O, fluid restriction - recent echocardiogram in May showed EF 25-30% # CAD with PTCA # dyslipidemia - resume clopidogrel - Lipitor # uncontrolled type 2 DM - pending HbA1c - Accu-Cheks and mild ISS # H/o Afib - resumed on amiodarone # ?ALVINA/LEANDER - outpatient follow up with the GI Protonix Lovenox Diabetic diet Goals of care discussed with the patient for more than 27 minutes: Full code status Case discussed with Dr. Barraza, patient and nurse Plan discussed with: Patient My Orders My Orders Orders - [facility] RESIDENT Procedure Category Date Status Time Cefepime 1gm/ 50ml PHA 07/24/24 In Process (Maxipime 1gm/50ml) 22:00 Doxycycline PHA 07/24/24 In Process 100mg/100ml 13:00 Hydralazine Injection PHA 07/24/24 In Process (Apresoline Inject 13:15 Insert/Manage Urinary LISET 07/24/24 In Process Catheter 13:33 Albuterol Medneb PHA 07/24/24 In Process (Ventolin Medneb) 18:00 Ipratropium Medneb PHA 07/24/24 In Process (Atrovent Medneb) 18:00 BIPAP RT 07/24/24 Logged 14:14 Bilat Lower Dvt US 07/24/24 Resulted 16:[address] 07/24/24 Resulted 16:29 Furosemide Tablet PHA 07/26/24 Logged (Lasix Tablet) 10:00 Ibuprofen Tablet PHA 07/25/24 Logged (Motrin Tablet) 12:45 Melatonin (Melatonin) PHA 07/25/24 Logged 22:00 Date of Service: Jul 25, 2024 Billing Provider: BRAIN MOLINA MD Common Visit Codes: [id number] INP/OBS CARE(HIGH) [facility] RES[facility] Jul 25, 2024 12:44 BRAIN MOLINA MD Jul 28, 2024 23:48
[2024-07-25] MEDS: MELATONIN 5 MG TAB PO SCH (22:05)
[2024-07-26] VITALS (17 sets, daily range): BP systolic 103–198; BP diastolic 43–84; PULSE 70–88; RESP 16–22; TEMP 97.7–98.3; O2SAT 9–100
[2024-07-26 03:01] LABS: Urine Bacteria None Seen /hpf (None Seen)
[2024-07-26 03:10] LABS: Urine Blood 2+ /uL (Negative); Urine Clarity Clear (Clear); Urine Color Yellow (Yellow); Urine Protein, UAD 1+ (Negative); Urine Specific Gravity 1.024 (1.001-1.035); Urine Squamous Epithelial Cell None Seen /hpf (<5); Urine Urobilinogen Normal (Negative); Urine WBC 4 /HPF (0-5); Urine pH 5.5 (5.0-9.0)
[2024-07-26 03:21] LABS: Amphetamine Screen, Urine Neg (NEGATIVE); Barbiturate Scree,Urine Neg (NEGATIVE); Benzodiazephine Screen, Urine Neg (NEGATIVE); Cocaine Screen, Urine Neg (NEGATIVE); Opiate Scree,Urine Neg (NEGATIVE)
[2024-07-26 03:33] LABS: Cannabinoid Screen, Urine Neg (NEGATIVE); Phencyclidine Screen, Urine Neg (NEGATIVE)
[2024-07-26 05:25] LABS: Basophils # (auto) 0 10 ^3/uL (0-0.2); Basophils % (auto) 0.1 % (0.0-2.0); Eosinophils # (auto) 0 10 ^3/uL (0-0.8); Hematocrit 37.2 % (36.0-46.0); Hemoglobin 12.1 g/dL (12.2-16.2); Lymphocytes # (auto) 0.4 10 ^3/uL (0.4-5.4); Lymphocytes % (auto) 6.4 % (10.0-50.0); Mean Corpuscular Hgb Conc. 32.5 g/dL (32.0-36.0); Mean Corpuscular Volume 92.2 fL (80.0-100.0); Monocytes # (auto) 0.1 10 ^3/uL (0-1.3); Monocytes % (auto) 1.5 % (0.0-12.0); Neutrophils # (auto) 5.4 10 ^3/uL (1.6-8.6); Nucleated Red Blood Cells % 0.1 %; Platelet Count (auto) 126 10^3/uL (140-450); Red Blood Cells 4.03 10^6/uL (4.0-5.20); Red Cell Distribution Width 15.7 % (11.8-14.3); White Blood Cell 5.9 10^3/uL (4.4-10.8)
[2024-07-26 05:43] LABS: Alanine Aminotransferase 13 U/L (7-40); Albumin 4.2 g/dL (3.2-4.8); Alkaline Phosphatase 90 U/L (46-116); Anion Gap 10 (5-15); Aspartate Aminotransferase 18 U/L (13-40); BUN/Creatinine Ratio 28.3 (10.0-20.0); Bilirubin, Total 0.5 mg/dL (0.2-1.0); Carbon Dioxide 22 mmol/L (20-31); Chloride 105 mmol/L (98-107); Potassium 5.1 mmol/L (3.5-5.1); Sodium 137 mmol/L (136-145); Total Protein 6.7 g/dL (5.7-8.2)
[2024-07-26 05:52] LABS: Blood Urea Nitrogen 32 mg/dL (9-23); Glucose 313 mg/dL (74-106)
[2024-07-26] MEDS: IBUPROFEN 400 MG TAB PO PRN (06:30)
[2024-07-26] MEDS: FUROSEMIDE 20 MG TAB PO SCH (12:02)
--- NOTE | 2024-07-26 15:36 | DVHPNRES ---
Progress Note Date Seen: Jul 26, 2024 Resident Creating Document: [facility] RES[facility] Medical Necessity Reason Pt with a Central, PICC or Fol: No Subjective Review of Systems KESHIA CASTILLO is a 58-year-old male with a PMH of CAD, CHF, COPD, DM, HTN, AFib presented to the ED with the chief complaints of shortness of breath. Patient seen and examined at the bedside. Patient reported improvement in her symptoms and currently she is on 2 L oxygen [place]. Overnight events reviewed. Objective vital signs Vital Sign Date Time Temp Pulse Resp B/P (MAP) Pulse Ox O2 Delivery O2 Flow Rate FiO2 07/26/24 14:38 198/78 (118) 07/26/24 13:00 97.7 70 20 99 97.7 07/26/24 12:00 Nasal Cannula* 2 28 Total Intake and Output 07/25/24 07/25/24 07/26/24 15:00 23:00 07:00 Intake Total 100 ml 650 ml 550 ml Output Total 1050 ml 200 ml Balance 100 ml -400 ml 350 ml medications Current Medications Medications Dose Ordered Sig/Jeanne Route Start Time Stop Time Status Last Admin Dose Admin Clopidogrel Bisulfate 75 mg DAILY PO 07/24/24 10:00 07/26/24 12:01 75 MG Atorvastatin Calcium 80 mg HS PO 07/24/24 22:00 07/25/24 22:04 80 MG Amiodarone HCl 200 mg DAILY PO 07/24/24 10:00 07/26/24 12:01 200 MG Gabapentin 800 mg BID PO 07/24/24 10:00 07/26/24 12:01 800 MG Metoprolol Succinate 25 mg DAILY PO 07/24/24 10:00 07/26/24 12:03 25 MG Montelukast Sodium 10 mg HS PO 07/24/24 22:00 07/25/24 22:05 10 MG Ondansetron HCl 4 mg Q4HP PRN IV 07/24/24 01:15 Enoxaparin Sodium 40 mg DAILY SC 07/24/24 10:00 07/26/24 12:03 40 MG Pantoprazole Sodium 40 mg DAILY IV 07/25/24 10:00 07/26/24 12:02 40 MG Insulin Human Regular AC SC 07/24/24 11:30 07/26/24 12:16 12 UNITS Insulin Human Regular HS SC 07/24/24 22:00 07/24/24 23:01 6 UNITS Dextrose 50 ml UD PRN IV 07/24/24 12:00 Diagnostic Test (Pha) 1 strip ACHS 07/24/24 11:30 07/26/24 12:03 1 STRIP Hydralazine HCl 10 mg Q6HP PRN IV 07/24/24 13:15 Albuterol 2.5 mg Q6HR NEB 07/24/24 18:00 07/26/24 12:00 2.5 MG Ipratropium [place] 0.5 mg Q6HR NEB 07/24/24 18:00 07/26/24 12:00 0.5 MG Furosemide 40 mg DAILY PO 07/26/24 10:00 07/26/24 12:02 40 MG Ibuprofen 400 mg Q8HP PRN PO 07/25/24 12:45 07/26/24 06:30 400 MG Melatonin 10 mg HS PO 07/25/24 22:00 07/25/24 22:05 10 MG Methylprednisolone Sodium Succinate 40 mg DAILY IV 07/27/24 10:00 Ceftriaxone Sodium 50 ml @ 100 mls/hr DAILY@09 IV 07/27/24 09:00 Doxycycline Monohydrate 100 mg Q12HR PO 07/26/24 22:00 Examination Pt is lying on bed General Appearance: Alert, Oriented X3, Cooperative, Mild distress HEENT: Atraumatic, Mucous membranes moist/pink Respiratory: Clear to auscultation, Normal air movement, crackles improved Cardiovascular: Regular rate, Normal S1, Normal S2, Abdominal: Active bowel sounds, Soft, no distention, no tenderness Extremities: 1+ edema in the right lower extremity edema, Normal pulses, No tendernes Skin: No Significant rash, except past surgical scars Neuro: Normal speech, sensorimotor deficits none Psych/Mental Status: Mental status NL, Mood NL Nurse was there as sharperone during examination laboratory and microbiology Laboratory Tests 07/26/24 05:07 Test 07/26/24 05:07 Range/Units Serum Glucose 313 H 74-106 mg/dL Labs and/or images reviewed: Labs reviewed by me, Image(s) reviewed by me Problem List/Assessment/Plan Problem List/Assessment/Plan # Acute on chronic hypoxic respiratory failure-improving # COPD exacerbation- improving # ? G+/- BActerial PNA Acute # ? Sepsis fron PNA - currently on 2 L oxygen [place] - med surge unit - ordered CXR, pulmonary congestion - currently giving breathing treatments - rocephin, doxy and methylprednisolone 40 mg - ordered a respiratory cultures - monitor respiratory distress symptoms -chest CT showed cardiomegaly # ? acute on chronic systolic and diastolic CHF exacerbation # NSTEMI II likely due to above # uncontrolled HTN - elevated BNP and troponins - reviewed EKG, sinus rhythm no ST changes - Lasix 40, metoprolol 25 - hold MEENU inhibitors as kidney function is worsening - strict I and O, fluid restriction - recent echocardiogram in May showed EF 25-30% # CAD with PTCA # dyslipidemia - resume clopidogrel - Lipitor # uncontrolled type 2 DM - HbA1c 6.2 - Accu-Cheks and mild ISS # H/o Afib - resumed on amiodarone # ?TINSLEY/MASH - outpatient follow up with the GI Protonix Lovenox Diabetic diet Goals of care discussed with the patient for more than 27 minutes: Full code status Case discussed with Dr. Barraza, patient and nurse Plan discussed with: Patient My Orders My Orders Orders - [facility] RES[facility] Procedure Category Date Status Time Pt Request For Service PT 07/26/24 Logged 11:28 Methylprednisolone PHA 07/27/24 In Process Sod Succ (Solu Medrol 10:00 Ceftriaxone 1gm/50ml PHA 07/27/24 In Process D5w (Rocephin) 09:00 Doxycycline Tablet PHA 07/26/24 In Process (Vibramycin Tablet) 22:00 Bilat Upper Ext Art US 07/26/24 Logged Duplex 15:11 Date of Service: Jul 26, 2024 Billing Provider: BRAIN MOLINA MD Common Visit Codes: [id number] INP/OBS CARE(HIGH) [facility] RES[facility] Jul 26, 2024 15:36 BRAIN MOLINA MD Jul 28, 2024 23:55
--- NOTE | 2024-07-26 16:26 | DVH ---
EXAM: US BILAT UPPER EXT ART DUPLEX EXAM: US BILAT UPPER EXT ART DUPLEX REASON FOR EXAM: r/o PAD COMPARISON: None TECHNIQUE: Duplex Doppler evaluation of the arterial system of the bilateral upper extremity including color Dop pler and spectral/pulsed waveform analysis was performed. Findings: Right upper extremity arteries: Subclavian: 161 cm/s Axillary: 134 cm/s Brachial: 179 cm/s Radial: 27 cm/s Ulnar: 95 cm/s Diffuse biphasic and triphasic waveforms. No evidence of intimal thickening. Mild atherosclerotic alvaro que visualized. Left upper extremity arteries: Subclavian: 84 cm/s Axillary: 99 cm/s Brachial: 82 cm/s Radial: 34 cm/s Ulnar: 47 cm/s Diffuse biphasic and triphasic waveforms. No evidence of intimal thickening. No significant atheroscl erotic plaque visualized. Impression: 1. No evidence of hemodynamically significant stenosis throughout the bilateral upper extremity arter ial systems.
[2024-07-26] MEDS: cefTRIAXone 1GM/50ML D5W 50 ML IV ONE (16:29)
[2024-07-26] MEDS: DOXYCYCLINE 100 MG TAB/CAP PO SCH (22:03)
[2024-07-27] VITALS (42 sets, daily range): BP systolic 77–131; BP diastolic 31–61; PULSE 57–112; RESP 14–28; TEMP 97.9–99.5; O2SAT 92–99
[2024-07-27] MEDS: PANTOPRAZOLE 40 MG TAB PO ONE (08:30)
[2024-07-27] MEDS: methylPREDNISolone SOD SUCC 40 MG/ML VL IV SCH ×2 (10:53→21:39)
[2024-07-27] MEDS: cefTRIAXone 1GM/50ML D5W 50 ML IV SCH (11:01)
[2024-07-27 11:30] LABS: Chloride 106 mmol/L (98-107); Potassium 4.1 mmol/L (3.5-5.1); Sodium 139 mmol/L (136-145)
[2024-07-27 11:31] LABS: Anion Gap 7 (5-15); Calcium 9.5 mg/dL (8.7-10.4); Carbon Dioxide 26 mmol/L (20-31)
[2024-07-27 11:36] LABS: BUN/Creatinine Ratio 29.2 (10.0-20.0)
[2024-07-27 11:37] LABS: Blood Urea Nitrogen 33 mg/dL (9-23); Glucose 185 mg/dL (74-106)
[2024-07-27] MEDS: SUCCINYLCHOLINE CHLORIDE 20 MG/ML 10ML VIAL IV ONE (11:43)
[2024-07-27] MEDS: MIDAZOLAM DRIP 50 mg/50mL 50 ML IV ONE (11:58)
[2024-07-27] MEDS: fentaNYL Drip 2500mCg/250mlNS 250 ML IV ONE (11:59)
[2024-07-27] MEDS ORDERED: guaiFENesin-DM 100/10mg/5ml SYR PO PRN (12:30)
[2024-07-27] MEDS ORDERED: MAGNESIUM SULFATE 1GM/100ML 100 ML IV STA (12:30)
[2024-07-27] MEDS: ETOMIDATE (2MG/ML) 20ML VIAL IV ONE ×2 (12:44→13:45)
--- NOTE | 2024-07-27 13:02 | DVHNC2 ---
Intubation Indication: Respiratory Insufficiency, Altered Mental Status Prep: Preoxygenation Pretreated with: Analgesia, Sedation Medicated with: Other (Rocuronium and etomidate) Intubation Approach: Orotracheal Intubation size: cm (8) Informed consent obtained: Yes Risks/benefits/alt described: Yes Date of Service: Jul 27, 2024 Billing Provider: DAVID URIBE MD Common Visit Codes: PROCEDURE ONLY [facility] RES[facility] Jul 27, 2024 13:02
[2024-07-27 13:04] LABS: Base Excess -7.4 mmol/L (-2.0-3.0)
[2024-07-27] MEDS: ROCURONIUM 10MG/ML 10ML VIAL IV ONE (13:45)
[2024-07-27] MEDS: fentaNYL Drip 2500mCg/250mlNS 250 ML IV SCH (13:45)
[2024-07-27] MEDS: MIDAZOLAM DRIP 50 mg/50mL 50 ML IV SCH (13:45)
--- NOTE | 2024-07-27 13:47 | DVH ---
CHEST RADIOGRAPH Indication: patient intubation Technique: Single frontal view of the chest was obtained COMPARISON: XY CHEST XRAY 1 VIEW on DOS: 07/23/24, XY CHEST PORTABLE on DOS: 06/02/24, XY CHEST PORTABL E on DOS: 06/01/24, XY CHEST PORTABLE on DOS: 05/31/24, XY CHEST PORTABLE on DOS: 05/30/24 FINDINGS: Lines and Tubes: Endotracheal tube 3.9 cm above the danelle. Lungs: Clear Pleura: No effusion. No pneumothorax. Cardiomediastinal contours: Cardiomegaly. Massive calcification of the aortic arch. Possible small le ft pleural effusion. Bones: Unremarkable IMPRESSION: 1. Endotracheal tube 3.9 cm above the danelle. Possible small left pleural effusion. Cardiomegaly.
--- NOTE | 2024-07-27 13:49 | DVHPNRES ---
Progress Note Date Seen: Jul 27, 2024 Resident Creating Document: [facility] RESIDENT Medical Necessity Reason Pt with a Central, PICC or Fol: Yes The following are medically ne: Guan Catheter Subjective Review of Systems KESHIA CASTILLO is a 58-year-old male with a PMH of CAD, CHF, COPD, DM, HTN, AFib presented to the ED with the chief complaints of shortness of breath. Patient seen and examined at the bedside. Initially patient is stable and reported no new complaints except mild cough but suddenly started developing respiratory distress, ABG showed severe acidosis with a CO2 retention and then altered which required intubation with mechanical ventilation with vent settings RR 22, VTE 450, peep 8, FiO2 100%. Objective vital signs Vital Sign Date Time Temp Pulse Resp B/P (MAP) Pulse Ox O2 Delivery O2 Flow Rate FiO2 07/27/24 12:50 112 22 98 100 07/27/24 11:03 Nasal Cannula 2.0 07/27/24 09:00 97.9 97.9 Total Intake and Output 07/26/24 07/26/24 07/27/24 15:00 23:00 07:00 Intake Total 1030 ml 220 ml Output Total 1050 ml 800 ml Balance -20 ml -580 ml medications Current Medications Medications Dose Ordered Sig/Jeanne Route Start Time Stop Time Status Last Admin Dose Admin Clopidogrel Bisulfate 75 mg DAILY PO 07/24/24 10:00 07/27/24 10:56 75 MG Amiodarone HCl 200 mg DAILY PO 07/24/24 10:00 07/27/24 10:57 200 MG Ondansetron HCl 4 mg Q4HP PRN IV 07/24/24 01:15 Insulin Human Regular AC SC 07/24/24 11:30 07/26/24 17:34 8 UNITS Insulin Human Regular HS SC 07/24/24 22:00 07/26/24 22:05 3 UNITS Dextrose 50 ml UD PRN IV 07/24/24 12:00 Diagnostic Test (Pha) 1 strip ACHS 07/24/24 11:30 07/27/24 11:30 1 STRIP Ipratropium [place] 0.5 mg Q6HR NEB 07/24/24 18:00 07/27/24 11:03 0.5 MG Enoxaparin Sodium 110 mg Q12HR SC 07/27/24 22:00 UNV Methylprednisolone Sodium Succinate 40 mg BID IV 07/27/24 22:00 UNV Piperacillin Sod/ Tazobactam Sod 100 ml @ 25 mls/hr Q8HR IV 07/27/24 14:00 UNV Furosemide 40 mg DAILY IV 07/28/24 10:00 UNV Pantoprazole Sodium 40 mg DAILY IV 07/28/24 10:00 UNV Doxycycline Hyclate 100 ml @ 50 mls/hr Q12H IV 07/27/24 13:30 UNV Midazolam HCl 50 ml @ 1 mls/hr Q24H IV 07/27/24 13:45 UNV Fentanyl Citrate 250 ml @ 2.5 mls/hr Q24H IV 07/27/24 13:45 UNV Examination Pt is lying on bed General Appearance: On sedation, intubated on MV RR 22, VTE 450, peep 8, FiO2 100%. HEENT: Atraumatic, Mucous membranes moist/pink Respiratory: bilateral crackles, breathing with mechanical ventilation Cardiovascular: Regular rate, Normal S1, Normal S2 Abdominal: Active bowel sounds, Soft, no distention, no tenderness, protrusion likely due to hernia Extremities: No edema, Normal pulses, No tenderness/swelling Skin: No Significant rash, except past surgical scars Neuro: Normal speech, sensorimotor deficits none before MV laboratory and microbiology Laboratory Tests 07/27/24 10:37 07/26/24 05:07 Test 07/27/24 10:37 Range/Units Serum Glucose 185 H 74-106 mg/dL Labs and/or images reviewed: Labs reviewed by me, Image(s) reviewed by me Problem List/Assessment/Plan Problem List/Assessment/Plan # Acute on chronic hypoxic & Hypercapnic respiratory failure s/p Intubation # COPD exacerbation- improving # ? G+/- BActerial PNA Acute # ? Sepsis fron PNA - Intubated on MV RR 22, VTE 450, peep 8, FiO2 100%. - ICU unit - sedation with fentanyl and midazolam - ordered CXR, pulmonary congestion - currently giving breathing treatments - Zosyn, doxy and methylprednisolone 40 mg - ordered a pancultures - chest CT showed cardiomegaly # ? acute on chronic systolic and diastolic CHF exacerbation # NSTEMI II likely due to above # uncontrolled HTN - elevated BNP and troponins - reviewed EKG, sinus rhythm no ST changes - Lasix 40, - Hold BP meds - hold MEENU inhibitors as kidney function is worsening - strict I and O, fluid restriction - recent echocardiogram in May showed EF 25-30% # CAD with PTCA # dyslipidemia - resume clopidogrel - Lipitor # uncontrolled type 2 DM - HbA1c 6.2 - Accu-Cheks and mild ISS # H/o Afib - resumed on amiodarone # ?TINSLEY/MASH - outpatient follow up with the GI Protonix Therapeutic Lovenox Diabetic diet Drips Versed Fentanyl Critical care time spent excluding procedures is 113 minutes Goals of care : Full code status Case discussed with Dr. Garcia, patient and nurse Care plan updated to patient's daughters bed side. Plan discussed with: Patient My Orders My Orders Orders - [facility] Procedure Category Date Status Time Bilat Upper Ext Art US 07/26/24 Resulted Duplex 15:11 Chest Xray 1 View XY 07/27/24 Logged 12:15 Abg W/ Co-Ox RT 07/27/24 Logged 12:15 Enoxaparin Sodium PHA 07/27/24 Logged (Lovenox) 22:00 Methylprednisolone PHA 07/27/24 Logged Sod Succ (Solu Medrol 22:00 Urine Bacterial ABIGAIL 07/27/24 Logged Culture 13:13 Blood Culture ABIGAIL 07/27/24 Logged 13:13 Mrsa Screen ABIGAIL 07/27/24 Logged 13:13 Lactic Acid W/ Reflex LAB 07/27/24 Logged Order 13:13 Piperacillin-Tazob PHA 07/27/24 Logged 3.375gm (Zosyn 3.375g 14:00 Furosemide Injection PHA 07/28/24 Logged (Lasix Injection) 10:00 Pantoprazole PHA 07/28/24 Logged (Protonix) 10:00 Doxycycline PHA 07/27/24 Logged 100mg/100ml 13:30 Date of Service: Jul 27, 2024 Billing Provider: BROOKS GARCIA MD Common Visit Codes: [id number] CARE 30-74 MIN, [id number] CARE-EACH +30MIN [facility] Jul 27, 2024 13:49 BROOKS GARCIA MD Jul 28, 2024 11:23
[2024-07-27] MEDS: PIPERACILLIN-TAZOB 3.375GM 100 ML IV SCH (14:00)
[2024-07-27 14:13] LABS: Base Excess -5.2 mmol/L (-2.0-3.0)
--- NOTE | 2024-07-27 15:21 | DVH ---
EXAM: XY CHEST PORTABLE TECHNIQUE: Single frontal chest radiograph CLINICAL HISTORY: central line placement COMPARISON: XY CHEST XRAY 1 VIEW on DOS: 07/27/24, XY CHEST XRAY 1 VIEW on DOS: 07/23/24, XY CHEST PORT ABLE on DOS: 06/02/24 Findings/Impression: Frontal chest radiograph demonstrates no acute osseous or superficial soft tissue abnormalities. The endotracheal tube measures 3.9 cm from the danelle. The right-sided IJ catheter terminates near th e superior cavoatrial junction. The trachea is midline. Mild cardiomegaly with pulmonary vascular congestion and possible mild pulmon kiley edema versus interstitial pneumonitis, similar to prior. No pneumothorax.
[2024-07-27 16:28] LABS: Base Excess -1.7 mmol/L (-2.0-3.0)
[2024-07-27] MEDS: NOREPINEPHRINE 8 MG/250ML KIT 250 ML IV ONE (16:59)
[2024-07-27 18:13] LABS: Basophils # (auto) 0 10 ^3/uL (0-0.2); Eosinophils # (auto) 0 10 ^3/uL (0-0.8); Eosinophils % (auto) 0.1 % (0.0-7.0); Lymphocytes # (auto) 0.3 10 ^3/uL (0.4-5.4); Lymphocytes % (auto) 4.7 % (10.0-50.0); Mean Corpuscular Hemoglobin 29.8 pg (28.0-32.0); Mean Corpuscular Hgb Conc. 32.4 g/dL (32.0-36.0); Mean Corpuscular Volume 91.8 fL (80.0-100.0); Monocytes # (auto) 0.2 10 ^3/uL (0-1.3); Monocytes % (auto) 3.8 % (0.0-12.0); Neutrophils # (auto) 5.7 10 ^3/uL (1.6-8.6); Neutrophils % (auto) 91.4 % (37.0-80.0); Nucleated Red Blood Cells % 0.1 %; Platelet Count (auto) 109 10^3/uL (140-450); Red Blood Cells 4.03 10^6/uL (4.0-5.20); Red Cell Distribution Width 15.3 % (11.8-14.3); White Blood Cell 6.2 10^3/uL (4.4-10.8)
[2024-07-27] MEDS: NOREPINEPHRINE 8 MG/250ML KIT 250 ML IV SCH (18:16)
--- NOTE | 2024-07-27 19:14 | DVHINCON2 ---
Date of service: Jul 27, [address] Maza Reason for Consultation Acute respiratory failure History of Present Illness HPI pt is a 63 yo female, h/o CHF, Cardiomyopathy, presented with shortness of breath, worse over few days. pt admitted to telemetry floor where she d esaturated and was intubated for hypoxemia. Pt notably was receiving pain meds. CTA was obtained, cardiomegaly, no PE, bilat consolidations ?aspiration Home Meds Active Scripts Clopidogrel Bisulfate (CLOPIDOGREL) 75 Mg Tab, 75 MG PO DAILY for 30 Days, #30 TAB 3 Refills Prov:LAMAR GÓMEZ DO 06/05/24 Atorvastatin Calcium (ATORVASTATIN CALCIUM) 20 Mg Tab, 40 MG PO HS for 30 Days, #60 TAB 3 Refills Prov:LAMAR GÓMEZ DO 06/05/24 Amiodarone HCl (Amiodarone HCl) 200 Mg Tab, 200 MG PO DAILY for 30 Days, #30 TAB 3 Refills Prov:LAMAR GÓMEZ DO 06/05/24 Reported Medications Famotidine (Famotidine) 20 Mg Tab, 1 TAB PO DAILY PRN for GERD for 30 Days, #30 05/30/24 Atorvastatin Calcium (Lipitor) 80 Mg Tab, 1 TAB PO DAILY for 30 Days, #30 05/30/24 Albuterol Sulfate (Albuterol Sulfate Hfa) 108 Mcg/Act Aer, 1-2 PUFF IN Q6HR PRN for 50 Days, #18 05/30/24 Pantoprazole Sodium Sesquihydr (Protonix) 40 Mg Tab, 20 MG PO DAILY for 30 Days, #30 05/30/24 Benazepril Hcl (Benazepril Hcl) 20 Mg Tab, 1 TAB PO DAILY for 90 Days, #90 05/30/24 Furosemide (Furosemide) 20 Mg Tab, 1 TAB PO DAILY for 30 Days, #30 05/30/24 Metformin Hydrochloride (Metformin Hcl) 500 Mg Tab, 1 TAB PO BID for 90 Days, #180 04/06/24 Fluticasone Furoate-Vilanterol (Breo Ellipta 200-25 Mcg/INH) 1 Inh Inh, 1 INH IN DAILY, INHALER 04/05/24 Metoprolol Tartrate (Lopressor) 25 Mg Tb, 25 MG PO DAILY, TAB 04/05/24 Gabapentin (Gabapentin) 800 Mg Tab, 800 MG PO BID, TAB 04/05/24 Montelukast Sodium (MONTELUKAST SODIUM) 10 Mg Tab, 1 TAB PO DAILY for 30 Days, #30 04/05/24 Clopidogrel Bisulfate (CLOPIDOGREL) 75 Mg Tab, 1 TAB PO DAILY for 30 Days, #30 04/05/24 Glipizide (Glipizide) 5 Mg Tab, 5 MG PO BID, MG 04/05/24 Past Medical History Patient Family History: Cardiovascular disease G8 MOTHER Chronic obstructive pulmonary disease G8 MOTHER Diabetes mellitus G8 MOTHER Hypertension G8 MOTHER 19 CHILD, Name: Izabel Tucker H&P Exam Vital Signs Vital Signs Date Time Temp Pulse Resp B/P (MAP) Pulse Ox O2 Delivery O2 Flow Rate FiO2 07/27/24 18:16 97/41 07/27/24 18:00 73 24 97 45 07/27/24 11:03 Nasal Cannula 2.0 07/27/24 09:00 97.9 97.9 Labs/Xrays Labs Test 07/27/24 18:00 07/27/24 17:54 07/27/24 16:21 07/27/24 13:45 Range/Units POC Glucose 295 H 70-106 mg/dl White Blood Count 6.2 4.4-10.8 10^3/uL Red Blood Count 4.03 4.0-5.20 10^6/uL Hemoglobin 12.0 L 12.2-16.2 g/dL Hematocrit 37.0 36.0-46.0 % Mean Corpuscular Volume 91.8 80.0-100.0 fL Mean Corpuscular Hemoglobin 29.8 28.0-32.0 pg Mean Corpuscular Hemoglobin Concent 32.4 32.0-36.0 g/dL Red Cell Distribution Width 15.3 H 11.8-14.3 % Platelet Count 109 L 140-450 10^3/uL Mean Platelet Volume 9.1 6.9-10.8 fL Neutrophils (%) (Auto) 91.4 H 37.0-80.0 % Lymphocytes (%) (Auto) 4.7 L 10.0-50.0 % Monocytes (%) (Auto) 3.8 0.0-12.0 % Eosinophils (%) (Auto) 0.1 0.0-7.0 % Basophils (%) (Auto) 0.0 0.0-2.0 % Neutrophils # (Auto) 5.7 1.6-8.6 10 ^3/uL Lymphocytes # (Auto) 0.3 L 0.4-5.4 10 ^3/uL Monocytes # (Auto) 0.2 0-1.3 10 ^3/uL Eosinophils # (Auto) 0 0-0.8 10 ^3/uL Basophils # (Auto) 0 0-0.2 10 ^3/uL Nucleated Red Blood Cells 0.1 % Blood Gas Specimen Type Arterial Blood Gas Sample Site Left radial Blood Gas Patient Temperature 37.0 Arterial Blood Date Drawn [id number] Arterial Blood pH 7.250 L 7.350-7.450 Arterial Blood Partial Pressure CO2 62.5 *H 32.0-45.0 mmHg Arterial Blood Partial Pressure O2 62.3 L 83.0-108.0 mmHg Arterial Blood HCO3 26.8 21.0-28.0 mmol/L Arterial Blood Oxygen Saturation 88.6 L 94.0-98.0 % Arterial Blood Base Excess -1.7 -2.0-3.0 mmol/L Arterial Blood Oxyhemoglobin 87.4 L 94.0-98.0 % Arterial Blood Carboxyhemoglobin 1.0 0.5-1.5 % Arterial Blood Methemoglobin 0.4 0.0-1.5 % Raciel Test Modified Blood Gas Total Hemoglobin 13.90 12.0-16.0 g/dL Blood Gas Set Respiration Rate 24.0 Blood Gas Modality Vent - ac FiO2 % 45.0 Blood Gas Tidal Volume 500.0 Blood Gas PEEP or CPAP 5.0 Blood Gas Critical Value Read Back Yes Blood Gas Notified Whom Bahman james. Blood Gas Notified Time [id number] Blood Gas Notified By Faustino brambila Lactic Acid Level 0.8 0.4-2.0 mmol/L Test 07/27/24 12:25 07/27/24 10:37 07/26/24 05:07 07/26/24 01:00 Range/Units Blood Gas Liter Flow 15.00 Sodium Level 139 136-145 mmol/L Potassium Level 4.1 3.5-5.1 mmol/L Chloride Level 106 98-107 mmol/L Carbon Dioxide Level 26 20-31 mmol/L Anion Gap 7 5-15 Blood Urea Nitrogen 33 H 9-23 mg/dL Creatinine 1.13 H 0.550-1.02 mg/dL Glomerular Filtration Rate Calc 54 >90 mL/min BUN/Creatinine Ratio 29.2 H 10.0-20.0 Serum Glucose 185 H 74-106 mg/dL Calcium Level 9.5 8.7-10.4 mg/dL Total Bilirubin 0.5 0.2-1.0 mg/dL Aspartate Amino Transferase (AST) 18 13-40 U/L Alanine Aminotransferase (ALT) 13 7-40 U/L Alkaline Phosphatase 90 46-116 U/L Total Protein 6.7 5.7-8.2 g/dL Albumin 4.2 3.2-4.8 g/dL Urine Color Yellow Yellow Urine Clarity Clear Clear Urine pH 5.5 5.0-9.0 Urine Specific [place] 1.024 1.001-1.035 Urine Protein 1+ H Negative Urine Ketones Negative Negative Urine Blood 2+ H Negative /uL Urine Nitrite Negative Negative Urine Bilirubin Negative Negative Urine Urobilinogen Normal Negative mg/dL Urine Leukocyte Esterase Negative Negative /uL Urine RBC 84 0 - 4 /hpf Urine Microscopic WBC 4 0-5 /HPF Urine Squamous Epithelial Cells None seen <5 /hpf Urine Bacteria None seen None Seen /hpf Urine Glucose Normal Normal mg/dL Urine Opiates Screen Neg NEGATIVE Urine Fentanyl Screen Neg NEGATIVE Urine Barbiturates Screen Neg NEGATIVE Urine Phencyclidine Screen Neg NEGATIVE Urine Amphetamines Screen Neg NEGATIVE Urine Benzodiazepines Screen Neg NEGATIVE Urine Cocaine Screen Neg NEGATIVE Urine Cannabinoids Screen Neg NEGATIVE Test 07/24/24 10:00 07/24/24 08:33 07/24/24 02:27 07/23/24 23:42 Range/Units Influenza Type A Antigen Negative Negative Influenza Type B Antigen Negative Negative SARS-CoV-2 Antigen (Rapid) Negative NEGATIVE Prothrombin Time 10.6 9.3-11.8 sec Prothrombin Time INR 1.00 0.9-1.15 Activated Partial Thromboplast Time 25.4 24.5-34.5 SEC Hemoglobin A1c 6.2 H <5.7 % A1C Magnesium Level 1.9 1.6-2.6 mg/dL Thyroid Stimulating Hormone (TSH) 0.81 0.55-4.78 uIU/mL Plasma/Serum Blood Alcohol < 3.0 <10 mg/dL Troponin I High Sensitivity 38 *H </=34 ng/L Blood Gas Spontaneous Rate 24 Test 07/23/24 23:28 Range/Units B-Type Natriuretic Peptide 619.73 0-100 pg/mL Assessment/Plan Plan aspiration CHF pl effusions acute hypoxemic resp failure atelectases pt seen and examined on ICU sedation for vent synchrony ac volume 18/500/5 100% f/up on abg diurese cont zosyn alb/atr bronchodilators consider bronch gi and dvt proph crit care time 35 min RONALD MEJIA MD Jul 27, 2024 19:14
[2024-07-27] MEDS: IOHEXOL 350 MG/ML 100ML IJ ONE (19:56)
--- NOTE | 2024-07-27 19:59 | DVH ---
EXAM: XY CHEST PORTABLE TECHNIQUE: Single frontal chest radiograph CLINICAL HISTORY: ng TUBE PLACEMENT COMPARISON: XY CHEST PORTABLE on DOS: 07/27/24, XY CHEST XRAY 1 VIEW on DOS: 07/27/24, XY CHEST XRAY 1 VIEW on DOS: 07/23/24 Findings/Impression: Frontal chest radiograph demonstrates no acute osseous or superficial soft tissue abnormalities. Right chest wall port terminates in the superior cavoatrial junction. Enteric tube is visualized over lying the plane of the stomach. The trachea is midline. The cardiac silhouette and mediastinum are within normal limits. Small left pleural effusion versus prominent epicardial fat pad. A superimposed infectious process i s not excluded. Right basilar atelectasis. No pneumothorax.
[2024-07-27] MEDS: DOXYCYCLINE 100MG/100ML 100 ML IV SCH (21:37)
[2024-07-27] MEDS: ENOXAPARIN SOD 120 MG/0.8 ML SYRINGE SC SCH (21:39)
[2024-07-27] MEDS: ACCU-CHEK COMFORT CURVE STRIP VI SCH (21:43)
[2024-07-27] MEDS: InsuLIN REG 1unit/0.01ml Soln (100units/ml) SC SCH (21:47)
--- NOTE | 2024-07-27 21:49 | DVH ---
Procedure: CT CT ANGIO CHEST CONTRAST Reason for study/Clinical History: shortness of breath Comparison Study: None available at time of dictation. Exam Date: 07/27/2024 08:56 PM Radiation Dose Information: CT Dose: CTDI volume is 20 mGy. Dose-length product is 1980 mGy*cm Contrast: Type of contrast: Isovue Contrast inject: 100 Contrast wasted:0 TECHNIQUE: After the uneventful administration of intravenous contrast intravenously, CT imaging was performed through the chest. Coronal and sagittal reformations were performed by the technologist. FINDINGS: Lower Neck: Visualized portions of the thyroid gland are unremarkable. Aorta and Vasculature: Normal caliber of thoracic aorta. No pulmonary embolism identified. Lymph Nodes: No enlarged intrathoracic lymph nodes. Mediastinum: Heart size is normal. There is no pericardial effusion. The esophagus is unremarkable. Lungs: Bibasilar consolidation suspicious for pneumonia or aspiration. Musculoskeletal: No acute osseous abnormality. Upper abdomen: Limited portions of the upper abdomen are unremarkable. IMPRESSION: 1. Bibasilar consolidations suspicious for pneumonia or aspiration. 2. Trace bilateral pleural effusions. 3. No pulmonary embolism. All CT scans at this medical facility are performed using dose modulation techniques as appropriate t o a performed exam including the following: Automated exposure control was utilized; adjustment of th e MA and/or KV according to patient size; and use of iterative reconstruction technique.
[2024-07-28] VITALS (111 sets, daily range): BP systolic 91–128; BP diastolic 35–63; PULSE 51–80; RESP 12–36; TEMP 98.1–99.3; O2SAT 90–100
[2024-07-28 03:41] LABS: Basophils # (auto) 0 10 ^3/uL (0-0.2); Basophils % (auto) 0.1 % (0.0-2.0); Eosinophils # (auto) 0 10 ^3/uL (0-0.8); Hematocrit 34.8 % (36.0-46.0); Hemoglobin 11.7 g/dL (12.2-16.2); Lymphocytes # (auto) 0.4 10 ^3/uL (0.4-5.4); Lymphocytes % (auto) 14.6 % (10.0-50.0); Mean Corpuscular Hemoglobin 30.1 pg (28.0-32.0); Mean Corpuscular Hgb Conc. 33.7 g/dL (32.0-36.0); Mean Corpuscular Volume 89.4 fL (80.0-100.0); Monocytes # (auto) 0.1 10 ^3/uL (0-1.3); Monocytes % (auto) 3.3 % (0.0-12.0); Neutrophils # (auto) 2.5 10 ^3/uL (1.6-8.6); Platelet Count (auto) 101 10^3/uL (140-450); Red Blood Cells 3.89 10^6/uL (4.0-5.20); Red Cell Distribution Width 15.3 % (11.8-14.3)
[2024-07-28 04:08] LABS: Alanine Aminotransferase 23 U/L (7-40); Alkaline Phosphatase 82 U/L (46-116); Anion Gap 7 (5-15); BUN/Creatinine Ratio 32.7 (10.0-20.0); Calcium 9.3 mg/dL (8.7-10.4); Carbon Dioxide 28 mmol/L (20-31); Chloride 103 mmol/L (98-107); Magnesium 2.2 mg/dL (1.6-2.6); Potassium 4.5 mmol/L (3.5-5.1); Sodium 138 mmol/L (136-145); Total Protein 6.3 g/dL (5.7-8.2)
[2024-07-28 04:09] LABS: Aspartate Aminotransferase 17 U/L (13-40)
[2024-07-28 04:10] LABS: Bilirubin, Total 0.8 mg/dL (0.2-1.0); Blood Urea Nitrogen 36 mg/dL (9-23); Glucose 225 mg/dL (74-106)
[2024-07-28] MEDS ORDERED: PANTOPRAZOLE 40 MG TAB PO SCH (06:00)
--- NOTE | 2024-07-28 06:09 | DVH ---
CHEST RADIOGRAPH Indication: sob Technique: Single frontal view of the chest was obtained Comparison: XY CHEST PORTABLE on DOS: 07/27/24, XY CHEST PORTABLE on DOS: 07/27/24, XY CHEST XRAY 1 VIE W on DOS: 07/27/24 IMPRESSION: Patient is rotated to the left. The heart is enlarged. Support lines and tubes appear similar. No si gnificant interval change.
[2024-07-28 07:23] LABS: Base Excess 1.7 mmol/L (-2.0-3.0)
--- NOTE | 2024-07-28 07:40 | DVHPNRES ---
Progress Note Date Seen: Jul 28, 2024 Resident Creating Document: GILMER MERAZ RESIDENT Medical Necessity Reason Pt with a Central, PICC or Fol: Yes The following are medically ne: Central Line, Guan Catheter Subjective Review of Systems Patient was seen and examined at bedside. She is currently on mechanical ventilation, FiO2 45%, respiratory rate 24, tidal volume 500, peep of five. Patient has a negative balance of 2.3 L. Levophed is standby, Versed 3, fent 25 CT angio performed yesterday rule out pulmonary embolism, suspected aspiration pneumonia. Objective vital signs Vital Sign Date Time Temp Pulse Resp B/P (MAP) Pulse Ox O2 Delivery O2 Flow Rate FiO2 07/28/24 06:46 98.4 58 24 108/54 (72) 95 209.1 07/28/24 06:00 45 07/28/24 06:00 Mechanical Ventilator+ 07/27/24 11:03 2.0 Total Intake and Output 07/27/24 07/27/24 07/28/24 15:00 23:00 07:00 Intake Total 152.75 ml 231.75 ml Output Total 1 ml 1450 ml 550 ml Balance -1 ml -1297.25 ml -318.25 ml medications Current Medications Medications Dose Ordered Sig/Jeanne Route Start Time Stop Time Status Last Admin Dose Admin Clopidogrel Bisulfate 75 mg DAILY PO 07/24/24 10:00 07/27/24 10:56 75 MG Amiodarone HCl 200 mg DAILY PO 07/24/24 10:00 07/27/24 10:57 200 MG Ondansetron HCl 4 mg Q4HP PRN IV 07/24/24 01:15 Dextrose 50 ml UD PRN IV 07/24/24 12:00 Ipratropium [place] 0.5 mg Q6HR NEB 07/24/24 18:00 07/28/24 06:58 0.5 MG Enoxaparin Sodium 110 mg Q12HR SC 07/27/24 22:00 07/27/24 21:39 110 MG Methylprednisolone Sodium Succinate 40 mg BID IV 07/27/24 22:00 07/27/24 21:39 40 MG Piperacillin Sod/ Tazobactam Sod 100 ml @ 25 mls/hr Q8HR IV 07/27/24 14:00 07/28/24 05:32 25 MLS/HR Furosemide 40 mg DAILY IV 07/28/24 10:00 Pantoprazole Sodium 40 mg DAILY IV 07/28/24 10:00 Doxycycline Hyclate 100 ml @ 50 mls/hr Q12H IV 07/27/24 22:00 07/27/24 21:37 50 MLS/HR Midazolam HCl 50 ml @ 1 mls/hr Q24H IV 07/27/24 13:45 07/27/24 20:20 3 MLS/HR Fentanyl Citrate 250 ml @ 2.5 mls/hr Q24H IV 07/27/24 13:45 07/27/24 13:45 2.5 MLS/HR Norepinephrine Bitartrate 250 ml @ 3.75 mls/hr Q24H IV 07/27/24 17:45 07/27/24 18:16 3.75 MLS/HR Insulin Human Regular Q6HR SC 07/27/24 21:00 07/28/24 05:39 4 UNITS Diagnostic Test (Pha) 1 strip Q6HR 07/27/24 21:00 07/28/24 05:35 1 STRIP Examination General: Intubated and sedated HEENT: Head is normocephalic and atraumatic. Pupils are equal, round, and reactive to light. Intubated Neck: Supple with no cervical lymphadenopathy Heart: Regular rate without murmur, rub, or gallop. Lungs: Bilateral diffuse crackles, scattered wheezing Abdomen: No external sign of injury. Bowel sounds are present. Abdomen is soft, nontender. Extremities: Strong peripheral pulses. There is no clubbing, no cyanosis. nonpitting edema Skin: No rash. Neurologic: Sedated RASS -2 laboratory and microbiology Laboratory Tests 07/28/24 03:10 Test 07/28/24 03:10 Range/Units Serum Glucose 225 H 74-106 mg/dL Labs and/or images reviewed: Labs reviewed by me, Image(s) reviewed by me Problem List/Assessment/Plan Problem List/Assessment/Plan # Acute on chronic hypoxic & Hypercapnic respiratory failure s/p Intubation on mechanical ventilation # COPD exacerbation # G+/- BActerial PNA Acute # septic shock from pneumonia, likely aspiration pneumonia, Gram-positive versus Gram-negative bacteria Intubated on MV RR 24, VTE 500, peep 5, FiO2 45%. ICU unit sedation with fentanyl and midazolam CT angio of the chest ruled out a pulmonary embolism, suspected aspiration pneumonia Continue Zosyn IV and doxycycline IV Continue Solu-Medrol 40 mg IV b.i.d. Continue DuoNebs Pending pancultures # acute on chronic systolic CHF exacerbation # NSTEMI II likely due to above # history of hypertension elevated BNP and troponins reviewed EKG, sinus rhythm no ST changes Lasix 40 mg IV q.d. strict I and O recent echocardiogram in May showed EF 25-30% # CAD with PTCA # dyslipidemia Continue clopidogrel # uncontrolled type 2 DM HbA1c 6.2 Accu-Cheks and mild ISS Lantus 20 units q.a.m. # H/o Afib Continue amiodarone Therapeutic Lovenox # ?TINSLEY/MASH #Morbid obesity outpatient follow up with the GI Counseled on lifestyle modifications #Thrombocytopenia, likely reactive #Anemia, mild, normocytic normochromic Monitor PUD prophylaxis Protonix Therapeutic Lovenox Drips Levophed 0 Versed 3 Fentanyl 25 Critical care time spent excluding procedures is 60 minutes Goals of care : Full code status Case discussed with Dr. Garcia Plan discussed with: Daughter, Other (RN) My Orders My Orders Orders - GILMER MERAZ RESIDENT Procedure Category Date Status Time Ventilator Orders RT 07/27/24 Transmitted 13:01 Respiratory Culture ABIGAIL 07/27/24 In Process W/ Gs 13:01 Abg W/ Co-Ox RT 07/27/24 Logged 14:00 Chest Xray 1 View XY 07/27/24 Resulted 13:16 Midazolam Drip 50 PHA 07/27/24 In Process Mg/50ml (Versed Drip 5 13:45 Fentanyl Drip PHA 07/27/24 In Process 2500mcg/250mlns 13:45 Ventilator Orders RT 07/27/24 Transmitted 13:33 Ventilator Orders RT 07/27/24 Transmitted 14:30 Abg W/ Co-Ox RT 07/27/24 Logged 15:30 Chest Portable XY 07/27/24 Resulted 14:46 Chest Portable XY 07/28/24 Logged 07:20 Dietary Evaluation Review Comments: 1) If patient remains NPO > 7 days, consider EN/TPN to meet at least 75% of daily estimated needs 2) If GI route is preferred, consider Glucerna 1.2 @ 45 mL/hr goal rate as tolerated. Goal rate will provide 1296, 65g Pro, and 845 mL free H2O per 24 hrs. TF regimen will meet 83% estimated daily energy needs and ~73% estimated daily protein needs 3) Advance to 60g CCHO cardiac diet when medically feasible, pending CONTROL OFFICER MANAGER approval 4) Continue to monitor I&O, labs, and skin integrity Expected Outcomes/Goals: 1) appetite and labs to advance 2) f/u in 3 days Date of Service: Jul 28, 2024 Billing Provider: BROOKS GARCIA MD Common Visit Codes: [id number] CARE 30-74 MIN GILMER MERAZ RESIDENT Jul 28, 2024 07:40 BROOKS GARCIA MD Jul 28, 2024 14:50
--- NOTE | 2024-07-28 09:15 | DVH ---
CLINICAL INFORMATION: Check endotracheal tube. TECHNIQUE: AP radiographs of the chest were obtained. COMPARISON: XY CHEST XRAY 1 VIEW on DOS: 07/28/24, XY CHEST PORTABLE on DOS: 07/27/24, XY CHEST PORTABL E on DOS: 07/27/24 FINDINGS: Distal tip of the endotracheal tube is approximately 6.3 cm above the level of the danelle. Enteric tu be reaches the stomach and descends below the [id number] of the exam. Stable satisfactory position ing of the right internal jugular central venous catheter. Bilateral interstitial opacities appear st able. Atelectasis and ill-defined opacities in the lung bases appear stable. No pneumothorax. No oth er significant interval change. IMPRESSION: 1. Endotracheal tube, enteric tube, and right internal jugular central venous catheter as described a ana maria. Advancement of the endotracheal tube by 2 cm could be considered to optimize positioning. 2. No other significant interval change.
[2024-07-28] MEDS: PANTOPRAZOLE 40 MG/10 ML VIAL INJ IV SCH (09:24)
[2024-07-28] MEDS: FUROSEMIDE 40 MG/4 ML VIAL IV SCH (09:24)
--- NOTE | 2024-07-28 10:49 | DVHPN2 ---
Progress Note - Dictate Date Seen: Jul 28, 2024 Medical Necessity Reason Pt with a Central, PICC or Fol: Yes The following are medically ne: Central Line, Guan Catheter vital signs Vital Sign Date Time Temp Pulse Resp B/P (MAP) Pulse Ox O2 Delivery O2 Flow Rate FiO2 07/28/24 09:39 123/58 07/28/24 09:27 63 24 94 40 07/28/24 07:30 Mechanical Ventilator+ 07/28/24 06:46 98.4 209.1 07/27/24 11:03 2.0 Total Intake and Output 07/27/24 07/27/24 07/28/24 15:00 23:00 07:00 Intake Total 152.75 ml 234.75 ml Output Total 1 ml 1450 ml 550 ml Balance -1 ml -1297.25 ml -315.25 ml medications Current Medications Medications Dose Ordered Sig/Jeanne Route Start Time Stop Time Status Last Admin Dose Admin Clopidogrel Bisulfate 75 mg DAILY PO 07/24/24 10:00 07/28/24 09:26 75 MG Amiodarone HCl 200 mg DAILY PO 07/24/24 10:00 07/28/24 09:26 200 MG Ondansetron HCl 4 mg Q4HP PRN IV 07/24/24 01:15 Dextrose 50 ml UD PRN IV 07/24/24 12:00 Ipratropium [place] 0.5 mg Q6HR NEB 07/24/24 18:00 07/28/24 06:58 0.5 MG Enoxaparin Sodium 110 mg Q12HR SC 07/27/24 22:00 07/28/24 09:25 110 MG Methylprednisolone Sodium Succinate 40 mg BID IV 07/27/24 22:00 07/28/24 09:25 40 MG Piperacillin Sod/ Tazobactam Sod 100 ml @ 25 mls/hr Q8HR IV 07/27/24 14:00 07/28/24 05:32 25 MLS/HR Furosemide 40 mg DAILY IV 07/28/24 10:00 07/28/24 09:24 40 MG Pantoprazole Sodium 40 mg DAILY IV 07/28/24 10:00 07/28/24 09:24 40 MG Doxycycline Hyclate 100 ml @ 50 mls/hr Q12H IV 07/27/24 22:00 07/28/24 09:25 50 MLS/HR Midazolam HCl 50 ml @ 1 mls/hr Q24H IV 07/27/24 13:45 07/28/24 09:39 6 MLS/HR Fentanyl Citrate 250 ml @ 2.5 mls/hr Q24H IV 07/27/24 13:45 07/27/24 13:45 2.5 MLS/HR Norepinephrine Bitartrate 250 ml @ 3.75 mls/hr Q24H IV 07/27/24 17:45 07/27/24 18:16 3.75 MLS/HR Insulin Human Regular Q6HR SC 07/27/24 21:00 07/28/24 05:39 4 UNITS Diagnostic Test (Pha) 1 strip Q6HR 07/27/24 21:00 07/28/24 05:35 1 STRIP Insulin Glargine 20 units HS SC 07/28/24 22:00 laboratory and microbiology Laboratory Tests 07/28/24 03:10 Test 07/28/24 03:10 Range/Units Serum Glucose 225 H 74-106 mg/dL Assessment/Plan aspiration acute hypoxemic resp failure pneumonia pl effusions pt seen and examined on ICU waking up minimal sedation ac volume control peep 5 Fi02=40% abg compensated labs reviewed management plan sedation holiday and weaning trial continue supportive care abx diurese replace lytes gi and dvt proph extubate when ready crit care time 35 min Dietary Evaluation Review Comments: 1) If patient remains NPO > 7 days, consider EN/TPN to meet at least 75% of daily estimated needs 2) If GI route is preferred, consider Glucerna 1.2 @ 45 mL/hr goal rate as tolerated. Goal rate will provide 1296, 65g Pro, and 845 mL free H2O per 24 hrs. TF regimen will meet 83% estimated daily energy needs and ~73% estimated daily protein needs 3) Advance to 60g CCHO cardiac diet when medically feasible, pending [employer] approval 4) Continue to monitor I&O, labs, and skin integrity Expected Outcomes/Goals: 1) appetite and labs to advance 2) f/u in 3 days Plan discussed with: Other (rn) RONALD MEJAI MD Jul 28, 2024 10:49
[2024-07-28 14:19] LABS: Base Excess 3.4 mmol/L (-2.0-3.0)
[2024-07-28] MEDS: MELATONIN 5 MG TAB PO PRN (21:34)
[2024-07-28] MEDS: INSULIN LANTUS (GLARGINE) 1 /0.01ml (100units/ml) SC SCH (21:36)
[2024-07-28] MEDS ORDERED: MELATONIN 5 MG TAB PO SCH (22:00)
[2024-07-29] VITALS (43 sets, daily range): BP systolic 97–135; BP diastolic 44–74; PULSE 65–82; RESP 12–26; TEMP 98.2–98.5; O2SAT 91–100
[2024-07-29 03:57] LABS: Anion Gap 7 (5-15); Chloride 102 mmol/L (98-107); Potassium 3.9 mmol/L (3.5-5.1); Sodium 141 mmol/L (136-145)
[2024-07-29 03:58] LABS: Basophils # (auto) 0 10 ^3/uL (0-0.2); Calcium 9.4 mg/dL (8.7-10.4); Eosinophils # (auto) 0 10 ^3/uL (0-0.8); Hematocrit 36.7 % (36.0-46.0); Hemoglobin 12.2 g/dL (12.2-16.2); Lymphocytes # (auto) 0.5 10 ^3/uL (0.4-5.4); Lymphocytes % (auto) 11.6 % (10.0-50.0); Mean Corpuscular Hemoglobin 29.7 pg (28.0-32.0); Mean Corpuscular Hgb Conc. 33.1 g/dL (32.0-36.0); Mean Corpuscular Volume 89.6 fL (80.0-100.0); Monocytes # (auto) 0.2 10 ^3/uL (0-1.3); Monocytes % (auto) 4.4 % (0.0-12.0); Neutrophils # (auto) 3.8 10 ^3/uL (1.6-8.6); Nucleated Red Blood Cells % 0.1 %; Platelet Count (auto) 111 10^3/uL (140-450); Red Blood Cells 4.09 10^6/uL (4.0-5.20); Red Cell Distribution Width 15.3 % (11.8-14.3); White Blood Cell 4.5 10^3/uL (4.4-10.8)
[2024-07-29 04:03] LABS: BUN/Creatinine Ratio 33.7 (10.0-20.0); Magnesium 2.3 mg/dL (1.6-2.6)
[2024-07-29 04:12] LABS: Blood Urea Nitrogen 33 mg/dL (9-23); Carbon Dioxide 32 mmol/L (20-31); Glucose 170 mg/dL (74-106)
--- NOTE | 2024-07-29 05:18 | DVH ---
EXAM: XR Chest, 1 View CLINICAL INDICATION: sob TECHNIQUE: Frontal view of the chest. COMPARISON: XY CHEST PORTABLE on DOS: 07/28/24, XY CHEST XRAY 1 VIEW on DOS: 07/28/24, XY CHEST JULIAN BLE on DOS: 07/27/24, XY CHEST PORTABLE on DOS: 07/27/24, XY CHEST XRAY 1 VIEW on DOS: 07/27/24 FINDINGS: LUNGS AND PLEURAL SPACES: Improving congestive heart failure. No consolidation. No pneumothorax. HEART: Unremarkable. No cardiomegaly. MEDIASTINUM: Unremarkable. Normal mediastinal contour. BONES/JOINTS: Unremarkable. No acute fracture. TUBES, LINES AND DEVICES: Stable tubes and lines. OTHER FINDINGS: . IMPRESSION: Improving congestive heart failure.
[2024-07-29 08:53] LABS: Base Excess 3.9 mmol/L (-2.0-3.0)
--- NOTE | 2024-07-29 09:59 | DVHNC2 ---
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) Indication: Suspected infection Room prepared for procedure: Yes Gore Seamer performed hand hygien: Yes Maximal sterile barrier precau: Mask/Eye shield, Sterile gown, Cap, Sterlie gloves, Large sterlie drape Skin Preparation: Chlorhexidine gluconate Skin preparation completely dr: Yes Insertion site: Right, Internal jugular Central line catheter type: [id number] dialysis Number of lumens: 3 Central line exchanged over a: No Antiseptic ointment applied to: Yes Post Assessment: Chest X-Ray, Proper placement, No Pneumothorax Informed consent obtained: Yes Risks/benefits/alt described: Yes Date of Service: Jul 27, 2024 Billing Provider: BROOKS SALDIVAR MD Common Visit Codes: PROCEDURE ONLY Procedure Codes: [id number] NON-TUNNEL CV CATH [facility] RESIDENT Jul 29, 2024 09:59 BROOKS SALDIVAR MD Jul 29, 2024 18:07
--- NOTE | 2024-07-29 12:06 | DVHPNRES ---
Progress Note Date Seen: Jul 29, 2024 Resident Creating Document: [facility] RES[facility] Medical Necessity Reason Pt with a Central, PICC or Fol: Yes The following are medically ne: Central Line, Guan Catheter Subjective Review of Systems Patient seen and examined at the bedside. Status post extubation, extubated yesterday. Patient currently reported improvement in her symptoms, no new complaints reported except mild weakness. Currently on 4 L oxygen NC. Continuously monitored. possibility downgraded to tele by evening today. Patient reports: Feels better Objective vital signs Vital Sign Date Time Temp Pulse Resp B/P (MAP) Pulse Ox O2 Delivery O2 Flow Rate FiO2 07/29/24 10:31 104/44 07/29/24 10:00 68 07/29/24 09:30 23 97 Nasal Cannula* 4 36 07/29/24 08:01 98.3 98.3 Total Intake and Output 07/28/24 07/28/24 07/29/24 15:00 23:00 07:00 Intake Total 125.5 ml 175 ml 185 ml Output Total 2450 ml 450 ml Balance 125.5 ml -2275 ml -265 ml medications Current Medications Medications Dose Ordered Sig/Jeanne Route Start Time Stop Time Status Last Admin Dose Admin Clopidogrel Bisulfate 75 mg DAILY PO 07/24/24 10:00 07/29/24 10:30 75 MG Amiodarone HCl 200 mg DAILY PO 07/24/24 10:00 07/29/24 10:30 200 MG Ondansetron HCl 4 mg Q4HP PRN IV 07/24/24 01:15 Dextrose 50 ml UD PRN IV 07/24/24 12:00 Ipratropium [place] 0.5 mg Q6HR NEB 07/24/24 18:00 07/29/24 07:00 0.5 MG Enoxaparin Sodium 110 mg Q12HR SC 07/27/24 22:00 07/29/24 10:31 110 MG Methylprednisolone Sodium Succinate 40 mg BID IV 07/27/24 22:00 07/29/24 10:31 40 MG Piperacillin Sod/ Tazobactam Sod 100 ml @ 25 mls/hr Q8HR IV 07/27/24 14:00 07/29/24 06:04 25 MLS/HR Furosemide 40 mg DAILY IV 07/28/24 10:00 07/29/24 10:31 40 MG Pantoprazole Sodium 40 mg DAILY IV 07/28/24 10:00 07/29/24 11:46 40 MG Doxycycline Hyclate 100 ml @ 50 mls/hr Q12H IV 07/27/24 22:00 07/29/24 10:30 50 MLS/HR Insulin Human Regular Q6HR SC 07/27/24 21:00 07/29/24 06:05 4 UNITS Diagnostic Test (Pha) 1 strip Q6HR 07/27/24 21:00 07/29/24 11:58 1 STRIP Insulin Glargine 20 units HS SC 07/28/24 22:00 07/28/24 21:36 20 UNITS Melatonin 5 mg HS PRN PO 07/28/24 22:00 07/28/24 21:34 5 MG Ibuprofen 400 mg Q8HP PRN PO 07/29/24 12:15 UNV Examination Pt is lying on bed General Appearance: Alert, Oriented X3, Cooperative, Not in acute distress, status post extubation HEENT: Atraumatic, Mucous membranes moist/pink Respiratory: Clear to auscultation, Normal air movement, mild crackles Cardiovascular: Regular rate, Normal S1, Normal S2, No murmurs Abdominal: Active bowel sounds, Soft, no distention, no tenderness Extremities: No edema, Normal pulses, No tenderness/swelling Skin: No Significant rash, except past surgical scars Neuro: Normal speech, sensorimotor deficits none Psych/Mental Status: Mental status NL, Mood NL Nurse was there as sharperone during examination laboratory and microbiology Laboratory Tests 07/29/24 03:05 Test 07/29/24 03:05 Range/Units Serum Glucose 170 H 74-106 mg/dL Microbiology Date/Time Source Procedure Growth Status 07/27/24 13:45 Blood Blood Culture - Preliminary NO GROWTH AFTER 24 HOURS OF INCUBATION. Resulted 07/27/24 12:55 Sputum Gram Stain - Final Resulted 07/27/24 12:55 Sputum Respiratory Culture - Preliminary Resulted Labs and/or images reviewed: Labs reviewed by me, Image(s) reviewed by me Problem List/Assessment/Plan Problem List/Assessment/Plan # Acute on chronic hypoxic & Hypercapnic respiratory failure s/p Extubation # COPD exacerbation # G+/- BActerial PNA Acute # septic shock from pneumonia, likely aspiration pneumonia, Gram-positive versus Gram-negative bacteria - status post extubation, currently on 4 L NC - ICU unit, possible downgrade to tele by the end of the day - CT angio of the chest ruled out a pulmonary embolism, suspected aspiration pneumonia - Continue Zosyn IV and doxycycline IV - Continue Solu-Medrol 40 mg IV b.i.d. - Continue DuoNebs - Pending pancultures # Acute on chronic systolic CHF exacerbation # NSTEMI II likely due to above # history of hypertension - elevated BNP and troponins - reviewed EKG, sinus rhythm no ST changes - Lasix 40 mg IV q.d. - strict I and O - recent echocardiogram in May showed EF 25-30% # CAD with PTCA # dyslipidemia - Continue clopidogrel # uncontrolled type 2 DM - HbA1c 6.2 - Accu-Cheks and mild ISS - Lantus 20 units q.a.m. # H/o Afib - Continue amiodarone - Therapeutic Lovenox # ?TINSLEY/MASH #Morbid obesity - outpatient follow up with the GI - Counseled on lifestyle modifications #Thrombocytopenia, likely reactive due to liver disease #Anemia, mild, normocytic normochromic due to liver disease - Monitor PUD prophylaxis Protonix Therapeutic Lovenox Cardiac diet if she passes swallow evaluation Critical care time spent excluding procedures 55 minutes Goals of care discussed with the patient for more than 27 minutes: Full code status Case discussed with Dr. Barraza, patient and nurse Plan discussed with: Patient Dietary Evaluation Review Comments: 1) If patient remains NPO > 7 days, consider EN/TPN to meet at least 75% of daily estimated needs 2) If GI route is preferred, consider Glucerna 1.2 @ 45 mL/hr goal rate as tolerated. Goal rate will provide 1296, 65g Pro, and 845 mL free H2O per 24 hrs. TF regimen will meet 83% estimated daily energy needs and ~73% estimated daily protein needs 3) Advance to 60g CCHO cardiac diet when medically feasible, pending [employer] approval 4) Continue to monitor I&O, labs, and skin integrity Expected Outcomes/Goals: 1) appetite and labs to advance 2) f/u in 3 days Date of Service: Jul 29, 2024 Billing Provider: BRAIN MOLINA MD Common Visit Codes: [id number] CARE 30-74 MIN [facility] Jul 29, 2024 12:06 BRAIN MOLINA MD Jul 30, 2024 13:34
[2024-07-29] MEDS: IBUPROFEN 400 MG TAB PO PRN (13:07)
--- NOTE | 2024-07-29 20:12 | DVHPN2 ---
Progress Note - Dictate Date Seen: Jul 29, 2024 Medical Necessity Reason Pt with a Central, PICC or Fol: Yes The following are medically ne: Central Line, Morel Catheter Reason for morel catheter: Strict I&O Subjective Patient seen and examined at bedside. S/p extubation, currently on supplemental oxygen Overnight events reviewed. vital signs Vital Sign Date Time Temp Pulse Resp B/P (MAP) Pulse Ox O2 Delivery O2 Flow Rate FiO2 07/29/24 19:26 82 19 100 07/29/24 19:16 Nasal Cannula 2.0 07/29/24 19:16 28 07/29/24 18:01 119/71 (87) 07/29/24 16:01 98.5 98.5 Total Intake and Output 07/28/24 07/28/24 07/29/24 15:00 23:00 07:00 Intake Total 125.5 ml 175 ml 185 ml Output Total 2450 ml 450 ml Balance 125.5 ml -2275 ml -265 ml medications Current Medications Medications Dose Ordered Sig/Jeanne Route Start Time Stop Time Status Last Admin Dose Admin Clopidogrel Bisulfate 75 mg DAILY PO 07/24/24 10:00 07/29/24 10:30 75 MG Amiodarone HCl 200 mg DAILY PO 07/24/24 10:00 07/29/24 10:30 200 MG Ondansetron HCl 4 mg Q4HP PRN IV 07/24/24 01:15 Dextrose 50 ml UD PRN IV 07/24/24 12:00 Ipratropium [place] 0.5 mg Q6HR NEB 07/24/24 18:00 07/29/24 19:16 0.5 MG Enoxaparin Sodium 110 mg Q12HR SC 07/27/24 22:00 07/29/24 10:31 110 MG Methylprednisolone Sodium Succinate 40 mg BID IV 07/27/24 22:00 07/29/24 10:31 40 MG Piperacillin Sod/ Tazobactam Sod 100 ml @ 25 mls/hr Q8HR IV 07/27/24 14:00 07/29/24 14:39 25 MLS/HR Furosemide 40 mg DAILY IV 07/28/24 10:00 07/29/24 10:31 40 MG Pantoprazole Sodium 40 mg DAILY IV 07/28/24 10:00 07/29/24 11:46 40 MG Doxycycline Hyclate 100 ml @ 50 mls/hr Q12H IV 07/27/24 22:00 07/29/24 10:30 50 MLS/HR Insulin Human Regular Q6HR SC 07/27/24 21:00 07/29/24 17:45 8 UNITS Diagnostic Test (Pha) 1 strip Q6HR 07/27/24 21:00 07/29/24 18:06 1 STRIP Insulin Glargine 20 units HS SC 07/28/24 22:00 07/28/24 21:36 20 UNITS Melatonin 5 mg HS PRN PO 07/28/24 22:00 07/28/24 21:34 5 MG Ibuprofen 400 mg Q8HP PRN PO 07/29/24 12:15 07/29/24 13:07 400 MG Levalbuterol HCl 0.625 mg Q6HR NEB 07/30/24 00:00 objective Gen.: Patient lying in bed in no apparent distress. On supplemental oxygen. Head: Normocephalic, atraumatic. Eyes: EOMI/PERRLA. Ears: Normal hearing. Normal anatomy. Neck/trachea: Trachea midline, supple. Nose: Normal external anatomy. Mouth: Moist mucous membranes. Chest: Decreased air entry bilaterally. No wheezing or rhonchi. Cardiovascular: Positive S1, positive S2. Regular rate and rhythm. Abdomen: Positive bowel sounds in all 4 quadrants. Soft, non-tender, non- distended. : Deferred. Rectal: Deferred. Skin: Warm, dry. Intact. Extremities: 2+ radial pulses bilaterally. No lower extremity edema. Neuro: Awake, alert, oriented x3. No gross motor or sensory deficits. Cranial nerves II through XII intact. Gait not assessed. laboratory and microbiology Laboratory Tests 07/29/24 03:05 Test 07/29/24 03:05 Range/Units Serum Glucose 170 H 74-106 mg/dL Assessment/Plan Impression: Aspiration Acute hypoxemic respiratory failure Pneumonia Pleural effusions Atelectasis Morbid obesity Events: Patient seen and examined in ICU Status post extubation yesterday, currently on 2 L NC Taper O2 as tolerated Head of bed elevation Aspiration precautions Continue bronchodilators/Pulmicort Started Xopenex Continue antibiotics Steroids - taper as tolerated. Incentive spirometry Accu-Cheks, ISS. Patient is stable for downgrade from the pulmonary standpoint. Labs and imaging reviewed. Rest of plan as noted below. Plan: S/p extubation on 07/28/24 Continue supplemental oxygen Titrate to keep O2 sats above 90%. Continue supportive care Antibiotics Continue bronchodilators Steroids - taper as tolerated. Diurese to euvolemia Monitor renal function. Monitor electrolytes. Supplement as necessary. Monitor ins and outs. GI prophylaxis. DVT prophylaxis. Prognosis: Guarded given patient's multiple co-morbidities. Condition: Critical Rest of plan per hospitalist and other consultants. A total of 35 minutes of critical care time was spent reviewing the patient record, examining the patient, making a diagnostic and therapeutic plan, discussing this plan with the medical personnel, following up on diagnostic studies and following the patient for clinical stability excluding any and all procedures. At least 50% of this time was spent in direct, [id number] contact. Thank you, Dr. Velez, for allowing me to participate in this patient's care. Further recommendations will depend on the patient's clinical course. Please do not hesitate to contact me if you have any questions or concerns. This medical document was created using an electronic medical record system with [employer] dictation system. Although these documentations are being carefully reviewed, there may still be some phonetic and typographical changes. The errors are purely typographical, due to imperfection on the software program, and do not reflect any compromise in the patient's medical care. Dietary Evaluation Review Comments: 1) If patient remains NPO > 7 days, consider EN/TPN to meet at least 75% of daily estimated needs 2) If GI route is preferred, consider Glucerna 1.2 @ 45 mL/hr goal rate as tolerated. Goal rate will provide 1296, 65g Pro, and 845 mL free H2O per 24 hrs. TF regimen will meet 83% estimated daily energy needs and ~73% estimated daily protein needs 3) Advance to 60g CCHO cardiac diet when medically feasible, pending [employer] approval 4) Continue to monitor I&O, labs, and skin integrity Expected Outcomes/Goals: 1) appetite and labs to advance 2) f/u in 3 days Plan discussed with: Other (MICHELLE Diaz) Critical Care Time(min): 35 MARYANNE ELLIOTT MD Jul 29, 2024 20:12
[2024-07-30] VITALS (16 sets, daily range): BP systolic 110–142; BP diastolic 67–84; PULSE 65–125; RESP 15–20; TEMP 97.5–98.2; O2SAT 92–98
[2024-07-30] MEDS: LEVALBUTEROL HCL 1.25 MG/3 ML NEB NEB SCH (01:03)
[2024-07-30 05:48] LABS: Basophils # (auto) 0 10 ^3/uL (0-0.2); Basophils % (auto) 0.1 % (0.0-2.0); Eosinophils # (auto) 0 10 ^3/uL (0-0.8); Hematocrit 40.2 % (36.0-46.0); Hemoglobin 13.3 g/dL (12.2-16.2); Lymphocytes # (auto) 0.5 10 ^3/uL (0.4-5.4); Lymphocytes % (auto) 10.4 % (10.0-50.0); Mean Corpuscular Hemoglobin 29.3 pg (28.0-32.0); Mean Corpuscular Volume 88.7 fL (80.0-100.0); Monocytes # (auto) 0.2 10 ^3/uL (0-1.3); Monocytes % (auto) 4.3 % (0.0-12.0); Neutrophils # (auto) 4.2 10 ^3/uL (1.6-8.6); Neutrophils % (auto) 85.2 % (37.0-80.0); Nucleated Red Blood Cells % 0.1 %; Platelet Count (auto) 142 10^3/uL (140-450); Red Blood Cells 4.54 10^6/uL (4.0-5.20); Red Cell Distribution Width 15.2 % (11.8-14.3); White Blood Cell 4.9 10^3/uL (4.4-10.8)
[2024-07-30 05:56] LABS: Chloride 102 mmol/L (98-107); Potassium 3.9 mmol/L (3.5-5.1); Sodium 140 mmol/L (136-145)
[2024-07-30 05:57] LABS: Anion Gap 9 (5-15); Calcium 9.6 mg/dL (8.7-10.4); Carbon Dioxide 29 mmol/L (20-31)
[2024-07-30 06:02] LABS: BUN/Creatinine Ratio 29.7 (10.0-20.0); Blood Urea Nitrogen 30 mg/dL (9-23); Glucose 191 mg/dL (74-106)
[2024-07-30 08:11] LABS: Base Excess 0.9 mmol/L (-2.0-3.0)
[2024-07-30] MEDS: guaiFENesin-DM 100/10mg/5ml SYR PO ONE (10:03)
[2024-07-30] MEDS ORDERED: guaiFENesin-DM 100/10mg/5ml SYR PO PRN (13:45)
--- NOTE | 2024-07-30 14:03 | DVHPNRES ---
Progress Note Date Seen: Jul 30, 2024 Resident Creating Document: [facility] RESIDENT Medical Necessity Reason Pt with a Central, PICC or Fol: Yes The following are medically ne: Central Line, Morel Catheter Reason for morel catheter: Strict I&O Subjective Review of Systems Patient seen and examined at the bedside. Patient currently reported improvement in her symptoms, no new complaints reported except mild cough. Currently on 2 L oxygen NC. Continuously monitored. Patient reports: No new complaints, Feels better Objective vital signs Vital Sign Date Time Temp Pulse Resp B/P (MAP) Pulse Ox O2 Delivery O2 Flow Rate FiO2 07/30/24 12:02 72 16 98 07/30/24 11:56 Nasal Cannula* 2 28 07/30/24 09:51 137/73 07/30/24 08:43 98.1 98.1 Total Intake and Output 07/29/24 07/29/24 07/30/24 15:00 23:00 07:00 Intake Total 100 ml 850 ml 300 ml Output Total 1950 ml 350 ml Balance 100 ml -1100 ml -50 ml medications Current Medications Medications Dose Ordered Sig/Jeanne Route Start Time Stop Time Status Last Admin Dose Admin Clopidogrel Bisulfate 75 mg DAILY PO 07/24/24 10:00 07/30/24 09:52 75 MG Amiodarone HCl 200 mg DAILY PO 07/24/24 10:00 07/30/24 09:52 200 MG Ondansetron HCl 4 mg Q4HP PRN IV 07/24/24 01:15 Dextrose 50 ml UD PRN IV 07/24/24 12:00 Ipratropium [place] 0.5 mg Q6HR NEB 07/24/24 18:00 07/30/24 11:56 0.5 MG Enoxaparin Sodium 110 mg Q12HR SC 07/27/24 22:00 07/30/24 09:51 110 MG Methylprednisolone Sodium Succinate 40 mg BID IV 07/27/24 22:00 07/30/24 09:51 40 MG Piperacillin Sod/ Tazobactam Sod 100 ml @ 25 mls/hr Q8HR IV 07/27/24 14:00 07/30/24 13:14 25 MLS/HR Furosemide 40 mg DAILY IV 07/28/24 10:00 07/30/24 09:51 40 MG Pantoprazole Sodium 40 mg DAILY IV 07/28/24 10:00 07/30/24 09:50 40 MG Doxycycline Hyclate 100 ml @ 50 mls/hr Q12H IV 07/27/24 22:00 07/30/24 09:50 50 MLS/HR Insulin Human Regular Q6HR SC 07/27/24 21:00 07/30/24 11:57 8 UNITS Diagnostic Test (Pha) 1 strip Q6HR 07/27/24 21:00 07/30/24 11:35 1 STRIP Insulin Glargine 20 units HS SC 07/28/24 22:00 07/29/24 21:21 20 UNITS Melatonin 5 mg HS PRN PO 07/28/24 22:00 07/29/24 21:31 5 MG Ibuprofen 400 mg Q8HP PRN PO 07/29/24 12:15 07/29/24 13:07 400 MG Levalbuterol HCl 0.625 mg Q6HR NEB 07/30/24 00:00 07/30/24 11:56 0.625 MG Guaifenesin/ Dextromethorphan 10 ml Q4HP PRN PO 07/30/24 13:45 Examination Pt is lying on bed General Appearance: Alert, Oriented X3, Cooperative, Not in acute distress HEENT: Atraumatic, Mucous membranes moist/pink Respiratory: Clear to auscultation, Normal air movement, mild crackles Cardiovascular: Regular rate, Normal S1, Normal S2, No murmurs Abdominal: Active bowel sounds, Soft, no distention, no tenderness Extremities: No edema, Normal pulses, No tenderness/swelling Skin: No Significant rash, except past surgical scars Neuro: Normal speech, sensorimotor deficits none Psych/Mental Status: Mental status NL, Mood NL Nurse was there as sharperone during examination laboratory and microbiology Laboratory Tests 07/30/24 05:03 Test 07/30/24 05:03 Range/Units Serum Glucose 191 H 74-106 mg/dL Microbiology Date/Time Source Procedure Growth Status 07/27/24 15:15 Nose MRSA Screen - Final Complete 07/27/24 13:45 Blood Blood Culture - Preliminary NO GROWTH AFTER 72 HOURS OF INCUBATION. Resulted 07/27/24 12:55 Sputum Gram Stain - Final Resulted 07/27/24 12:55 Sputum Respiratory Culture - Preliminary Resulted Labs and/or images reviewed: Labs reviewed by me, Image(s) reviewed by me Problem List/Assessment/Plan Problem List/Assessment/Plan # Acute on chronic hypoxic & Hypercapnic respiratory failure s/p Extubation # COPD exacerbation # G+/- BActerial PNA Acute # septic shock from pneumonia, likely aspiration pneumonia, Gram-positive versus Gram-negative bacteria - status post extubation, currently on 2 L NC - ICU unit, possible downgrade to [facility] by the end of the day - CT angio of the chest ruled out a pulmonary embolism, suspected aspiration pneumonia - Doxycycline oral - Rocephin, DC Zosyn - Methylprednisolone 40 mg daily - Continue DuoNebs - Pending pancultures # Acute on chronic systolic CHF exacerbation # NSTEMI II likely due to above # history of hypertension - elevated BNP and troponins - reviewed EKG, sinus rhythm no ST changes - Lasix switched to oral 40 p.o. - strict I and O - recent echocardiogram in May showed EF 25-30% # CAD with PTCA # dyslipidemia - Continue clopidogrel # uncontrolled type 2 DM - HbA1c 6.2 - Accu-Cheks and mild ISS - Lantus 20 units q.a.m. # H/o Afib - Continue amiodarone - Therapeutic Lovenox # ?TINSLEY/MASH #Morbid obesity - outpatient follow up with the GI - Counseled on lifestyle modifications #Thrombocytopenia, likely reactive due to liver disease #Anemia, mild, normocytic normochromic due to liver disease - Monitor PUD prophylaxis Protonix Therapeutic Lovenox Cardiac diet if she passes swallow evaluation Critical care time spent excluding procedures 55 minutes Goals of care discussed with the patient for more than 27 minutes: Full code status Case discussed with Dr. Barraza, patient and nurse. Possible DC tomorrow. Plan discussed with: Patient My Orders My Orders Orders - [facility] RESIDENT Procedure Category Date Status Time Abg W/ Co-Ox RT 07/30/24 Logged 04:00 Discontinue Ng ORDERS 07/29/24 Transmitted 15:54 Clear Liq Diet DIET 07/29/24 Transmitted Dinner Guaifenesin-Dextromet PHA 07/30/24 In Process Liquid (Robitussin 13:45 Mechanical Soft Diet DIET 07/30/24 Transmitted Lunch * [employer] CONS 07/30/24 Transmitted Consult Methylprednisolone PHA 07/31/24 Logged Sod Succ (Solu Medrol 10:00 Doxycycline Tablet PHA 07/30/24 Logged (Vibramycin Tablet) 22:00 Ceftriaxone 1gm/50ml PHA 07/31/24 Logged D5w (Rocephin) 09:00 Furosemide Tablet PHA 07/31/24 Logged (Lasix Tablet) 10:00 Dietary Evaluation Review Comments: 1) If patient remains NPO > 7 days, consider EN/TPN to meet at least 75% of daily estimated needs 2) If GI route is preferred, consider Glucerna 1.2 @ 45 mL/hr goal rate as tolerated. Goal rate will provide 1296, 65g Pro, and 845 mL free H2O per 24 hrs. TF regimen will meet 83% estimated daily energy needs and ~73% estimated daily protein needs 3) Advance to 60g CCHO cardiac diet when medically feasible, pending [employer]TLING [employer] ATTEND[employer] approval 4) Continue to monitor I&O, labs, and skin integrity Expected Outcomes/Goals: 1) appetite and labs to advance 2) f/u in 3 days [facility] RESIDENT Jul 30, 2024 14:03
[2024-07-30] MEDS: cefTRIAXone 1GM/50ML D5W 50 ML IV SCH (18:30)
[2024-07-30] MEDS: DOXYCYCLINE 100 MG TAB/CAP PO SCH (21:28)
--- NOTE | 2024-07-30 22:59 | DVHPN2 ---
Progress Note - Dictate Date Seen: Jul 30, 2024 Medical Necessity Reason Pt with a Central, PICC or Fol: Yes The following are medically ne: Central Line, Morel Catheter Reason for morel catheter: Strict I&O Subjective Patient seen and examined at bedside. Remains on supplemental oxygen Overnight events reviewed. vital signs Vital Sign Date Time Temp Pulse Resp B/P (MAP) Pulse Ox O2 Delivery O2 Flow Rate FiO2 07/30/24 20:13 100 20 95 Nasal Cannula* 4 36 07/30/24 17:03 98.1 110/67 (81) 98.1 Total Intake and Output 07/29/24 07/29/24 07/30/24 15:00 23:00 07:00 Intake Total 100 ml 850 ml 300 ml Output Total 1950 ml 350 ml Balance 100 ml -1100 ml -50 ml medications Current Medications Medications Dose Ordered Sig/Jeanne Route Start Time Stop Time Status Last Admin Dose Admin Clopidogrel Bisulfate 75 mg DAILY PO 07/24/24 10:00 07/30/24 09:52 75 MG Amiodarone HCl 200 mg DAILY PO 07/24/24 10:00 07/30/24 09:52 200 MG Ondansetron HCl 4 mg Q4HP PRN IV 07/24/24 01:15 Dextrose 50 ml UD PRN IV 07/24/24 12:00 Ipratropium [place] 0.5 mg Q6HR NEB 07/24/24 18:00 07/30/24 18:41 0.5 MG Enoxaparin Sodium 110 mg Q12HR SC 07/27/24 22:00 07/30/24 21:28 110 MG Pantoprazole Sodium 40 mg DAILY IV 07/28/24 10:00 07/30/24 09:50 40 MG Insulin Human Regular Q6HR SC 07/27/24 21:00 07/30/24 18:38 12 UNITS Diagnostic Test (Pha) 1 strip Q6HR 07/27/24 21:00 07/30/24 17:58 1 STRIP Insulin Glargine 20 units HS SC 07/28/24 22:00 07/29/24 21:21 20 UNITS Melatonin 5 mg HS PRN PO 07/28/24 22:00 07/29/24 21:31 5 MG Ibuprofen 400 mg Q8HP PRN PO 07/29/24 12:15 07/29/24 13:07 400 MG Levalbuterol HCl 0.625 mg Q6HR NEB 07/30/24 00:00 07/30/24 18:41 0.625 MG Guaifenesin/ Dextromethorphan 10 ml Q4HP PRN PO 07/30/24 13:45 Methylprednisolone Sodium Succinate 40 mg DAILY IV 07/31/24 10:00 Doxycycline Monohydrate 100 mg Q12HR PO 07/30/24 22:00 07/30/24 21:28 100 MG Ceftriaxone Sodium 50 ml @ 100 mls/hr DAILY@09 IV 07/30/24 18:00 07/30/24 18:30 100 MLS/HR Furosemide 40 mg DAILY PO 07/31/24 10:00 objective Gen.: Patient lying in bed in no apparent distress. On supplemental oxygen. Head: Normocephalic, atraumatic. Eyes: EOMI/PERRLA. Ears: Normal hearing. Normal anatomy. Neck/trachea: Trachea midline, supple. Nose: Normal external anatomy. Mouth: Moist mucous membranes. Chest: Decreased air entry bilaterally. No wheezing or rhonchi. Cardiovascular: Positive S1, positive S2. Regular rate and rhythm. Abdomen: Positive bowel sounds in all 4 quadrants. Soft, non-tender, non- distended. : Deferred. Rectal: Deferred. Skin: Warm, dry. Intact. Extremities: 2+ radial pulses bilaterally. No lower extremity edema. Neuro: Awake, alert, oriented x3. No gross motor or sensory deficits. Cranial nerves II through XII intact. Gait not assessed. laboratory and microbiology Laboratory Tests 07/30/24 05:03 Test 07/30/24 05:03 Range/Units Serum Glucose 191 H 74-106 mg/dL Assessment/Plan Impression: Aspiration Acute hypoxemic respiratory failure Pneumonia Pleural effusions Atelectasis Morbid obesity Events: Remains on supplemental oxygen, 2 LPM NC Taper O2 as tolerated Arrange for home oxygen. Head of bed elevation Aspiration precautions Continue bronchodilators On Xopenex Continue antibiotics Antitussive for cough Steroids - taper as tolerated. Incentive spirometry Accu-Cheks, ISS. Maintain euvolemia Monitor renal function. Patient is stable for discharge from the pulmonary standpoint. Recommend outpatient sleep study and PFTs. Obtain ABG in the AM. Labs and imaging reviewed. Rest of plan as noted below. Plan: S/p extubation on 3/16/25 Continue supplemental oxygen Titrate to keep O2 sats above 92%. Continue supportive care Antibiotics Continue bronchodilators Steroids - taper as tolerated. Maintain euvolemia Monitor renal function. Monitor electrolytes. Supplement as necessary. Monitor ins and outs. GI prophylaxis. DVT prophylaxis. Prognosis: Guarded given patient's multiple co-morbidities. Rest of plan per hospitalist and other consultants. Thank you, Dr. Velez, for allowing me to participate in this patient's care. Further recommendations will depend on the patient's clinical course. Please do not hesitate to contact me if you have any questions or concerns. This medical document was created using an electronic medical record system with [employer] dictation system. Although these documentations are being carefully reviewed, there may still be some phonetic and typographical changes. The errors are purely typographical, due to imperfection on the software program, and do not reflect any compromise in the patient's medical care. Dietary Evaluation Review Comments: 1) If patient remains NPO > 7 days, consider EN/TPN to meet at least 75% of daily estimated needs 2) If GI route is preferred, consider Glucerna 1.2 @ 45 mL/hr goal rate as tolerated. Goal rate will provide 1296, 65g Pro, and 845 mL free H2O per 24 hrs. TF regimen will meet 83% estimated daily energy needs and ~73% estimated daily protein needs 3) Advance to 60g CCHO cardiac diet when medically feasible, pending ASSOCIATE ACCOUNT DIRECTOR approval 4) Continue to monitor I&O, labs, and skin integrity Expected Outcomes/Goals: 1) appetite and labs to advance 2) f/u in 3 days Plan discussed with: Patient, Other (MICHELLE Echevarria) MARYANNE ELLIOTT MD Jul 30, 2024 22:59
[2024-07-31] VITALS (13 sets, daily range): BP systolic 107–132; BP diastolic 54–88; PULSE 59–88; RESP 12–18; TEMP 97.5–98.3; O2SAT 89–99
[2024-07-31 08:00] LABS: Basophils # (auto) 0 10 ^3/uL (0-0.2); Basophils % (auto) 0.4 % (0.0-2.0); Eosinophils # (auto) 0 10 ^3/uL (0-0.8); Eosinophils % (auto) 0.2 % (0.0-7.0); Hematocrit 40.6 % (36.0-46.0); Hemoglobin 13.8 g/dL (12.2-16.2); Lymphocytes % (auto) 25.5 % (10.0-50.0); Mean Corpuscular Hemoglobin 30.4 pg (28.0-32.0); Mean Corpuscular Hgb Conc. 33.9 g/dL (32.0-36.0); Mean Corpuscular Volume 89.7 fL (80.0-100.0); Monocytes # (auto) 0.7 10 ^3/uL (0-1.3); Monocytes % (auto) 9.3 % (0.0-12.0); Neutrophils % (auto) 64.6 % (37.0-80.0); Nucleated Red Blood Cells % 0.1 %; Platelet Count (auto) 176 10^3/uL (140-450); Red Blood Cells 4.52 10^6/uL (4.0-5.20); Red Cell Distribution Width 15.4 % (11.8-14.3); White Blood Cell 7.8 10^3/uL (4.4-10.8)
[2024-07-31 08:08] LABS: Anion Gap 8 (5-15); Carbon Dioxide 31 mmol/L (20-31); Chloride 103 mmol/L (98-107); Sodium 142 mmol/L (136-145)
[2024-07-31 08:09] LABS: Calcium 9.6 mg/dL (8.7-10.4)
[2024-07-31 08:10] LABS: Potassium 3.2 mmol/L (3.5-5.1)
[2024-07-31 08:14] LABS: BUN/Creatinine Ratio 30.7 (10.0-20.0); Glucose 100 mg/dL (74-106)
[2024-07-31 08:16] LABS: Blood Urea Nitrogen 31 mg/dL (9-23)
[2024-07-31] MEDS: POTASSIUM EFFERVESENT TAB 25 MEQ PO ONE (09:09)
[2024-07-31] MEDS: methylPREDNISolone SOD SUCC 40 MG/ML VL IV SCH (09:10)
[2024-07-31] MEDS: FUROSEMIDE 40 MG TAB PO SCH (09:11)
[2024-07-31] MEDS ORDERED: AMIO200T13 PO (10:08)
[2024-07-31] MEDS ORDERED: DOX100T PO (11:25)
[2024-07-31] MEDS ORDERED: PRED20TA2 PO (11:25)
[2024-07-31] MEDS ORDERED: APIX5TAB PO (11:25)
[2024-07-31] MEDS ORDERED: MELA5TAB16 PO (11:25)
--- NOTE | 2024-07-31 11:32 | DVHDSRES ---
Discharge Summary Date of Admission Resident Creating Document: ELY HOUSE RESIDENT Jul 24, 2024 at 01:10 Date of Discharge: Jul 31, 2024 Admitting Diagnosis Acute on chronic hypoxic respiratory failure Labs/Diagnostic Data: Laboratory Results Test 07/31/24 07:08 07/31/24 05:17 07/30/24 08:03 07/28/24 11:49 White Blood Count 7.8 10^3/uL (4.4-10.8) Red Blood Count 4.52 10^6/uL (4.0-5.20) Hemoglobin 13.8 g/dL (12.2-16.2) Hematocrit 40.6 % (36.0-46.0) Mean Corpuscular Volume 89.7 fL (80.0-100.0) Mean Corpuscular Hemoglobin 30.4 pg (28.0-32.0) Mean Corpuscular Hemoglobin Concent 33.9 g/dL (32.0-36.0) Red Cell Distribution Width 15.4 % (11.8-14.3) Platelet Count 176 10^3/uL (140-450) Mean Platelet Volume 8.8 fL (6.9-10.8) Neutrophils (%) (Auto) 64.6 % (37.0-80.0) Lymphocytes (%) (Auto) 25.5 % (10.0-50.0) Monocytes (%) (Auto) 9.3 % (0.0-12.0) Eosinophils (%) (Auto) 0.2 % (0.0-7.0) Basophils (%) (Auto) 0.4 % (0.0-2.0) Neutrophils # (Auto) 5.0 10 ^3/uL (1.6-8.6) Lymphocytes # (Auto) 2.0 10 ^3/uL (0.4-5.4) Monocytes # (Auto) 0.7 10 ^3/uL (0-1.3) Eosinophils # (Auto) 0 10 ^3/uL (0-0.8) Basophils # (Auto) 0 10 ^3/uL (0-0.2) Nucleated Red Blood Cells 0.1 % Sodium Level 142 mmol/L (136-145) Potassium Level 3.2 mmol/L (3.5-5.1) Chloride Level 103 mmol/L (98-107) Carbon Dioxide Level 31 mmol/L (20-31) Anion Gap 8 (5-15) Blood Urea Nitrogen 31 mg/dL (9-23) Creatinine 1.01 mg/dL (0.550-1.02) Glomerular Filtration Rate Calc 62 mL/min (>90) BUN/Creatinine Ratio 30.7 (10.0-20.0) Serum Glucose 100 mg/dL (74-106) Calcium Level 9.6 mg/dL (8.7-10.4) Magnesium Level 2.4 mg/dL (1.6-2.6) POC Glucose 115 mg/dl (70-106) Blood Gas Specimen Type Arterial Blood Gas Sample Site Left radial Blood Gas Patient Temperature 37.0 Arterial Blood Date Drawn [id number] Arterial Blood pH 7.473 (7.350-7.450) Arterial Blood Partial Pressure CO2 33.4 mmHg (32.0-45.0) Arterial Blood Partial Pressure O2 62.6 mmHg (83.0-108.0) Arterial Blood HCO3 23.9 mmol/L (21.0-28.0) Arterial Blood Oxygen Saturation 91.2 % (94.0-98.0) Arterial Blood Base Excess 0.9 mmol/L (-2.0-3.0) Arterial Blood Oxyhemoglobin 89.8 % (94.0-98.0) Arterial Blood Carboxyhemoglobin 1.1 % (0.5-1.5) Arterial Blood Methemoglobin 0.4 % (0.0-1.5) Raciel Test Yes Blood Gas Total Hemoglobin 14.30 g/dL (12.0-16.0) Blood Gas Liter Flow 2.00 Blood Gas Modality Nasal cannula FiO2 % 28.0 Blood Gas Spontaneous Rate 20 Blood Gas Spontaneous Tidal Volume 584 Blood Gas Inspiratory Pressure 14.0 Blood Gas Pressure Support 8 Blood Gas PEEP or CPAP 5.0 Bl Gas Inspiratory/Expiratory Ratio 1:2.3 Specimen Drawn By neema rt Test 07/28/24 07:08 07/28/24 03:10 07/27/24 16:21 07/27/24 13:45 Blood Gas Set Respiration Rate 24.0 Blood Gas Tidal Volume 500.0 Total Bilirubin 0.8 mg/dL (0.2-1.0) Aspartate Amino Transferase (AST) 17 U/L (13-40) Alanine Aminotransferase (ALT) 23 U/L (7-40) Alkaline Phosphatase 82 U/L (46-116) Total Protein 6.3 g/dL (5.7-8.2) Albumin 4.0 g/dL (3.2-4.8) Blood Gas Critical Value Read Back Yes Blood Gas Notified Whom Bahman james. Blood Gas Notified Time [id number] Blood Gas Notified By Faustino brambila Lactic Acid Level 0.8 mmol/L (0.4-2.0) Test 07/26/24 01:00 07/24/24 10:00 07/24/24 08:33 07/24/24 02:27 Urine Color Yellow (Yellow) Urine Clarity Clear (Clear) Urine pH 5.5 (5.0-9.0) Urine Specific [place] 1.024 (1.001-1.035) Urine Protein 1+ (Negative) Urine Ketones Negative (Negative) Urine Blood 2+ /uL (Negative) Urine Nitrite Negative (Negative) Urine Bilirubin Negative (Negative) Urine Urobilinogen Normal mg/dL (Negative) Urine Leukocyte Esterase Negative /uL (Negative) Urine RBC 84 /hpf (0 - 4) Urine Microscopic WBC 4 /HPF (0-5) Urine Squamous Epithelial Cells None seen /hpf (<5) Urine Bacteria None seen /hpf (None Seen) Urine Glucose Normal mg/dL (Normal) Urine Opiates Screen Neg (NEGATIVE) Urine Fentanyl Screen Neg (NEGATIVE) Urine Barbiturates Screen Neg (NEGATIVE) Urine Phencyclidine Screen Neg (NEGATIVE) Urine Amphetamines Screen Neg (NEGATIVE) Urine Benzodiazepines Screen Neg (NEGATIVE) Urine Cocaine Screen Neg (NEGATIVE) Urine Cannabinoids Screen Neg (NEGATIVE) Influenza Type A Antigen Negative (Negative) Influenza Type B Antigen Negative (Negative) SARS-CoV-2 Antigen (Rapid) Negative (NEGATIVE) Prothrombin Time 10.6 sec (9.3-11.8) Prothrombin Time INR 1.00 (0.9-1.15) Activated Partial Thromboplast Time 25.4 SEC (24.5-34.5) Hemoglobin A1c 6.2 % A1C (<5.7) Thyroid Stimulating Hormone (TSH) 0.81 uIU/mL (0.55-4.78) Plasma/Serum Blood Alcohol < 3.0 mg/dL (<10) Troponin I High Sensitivity 38 ng/L (</=34) Test 07/23/24 23:28 B-Type Natriuretic Peptide 619.73 pg/mL (0-100) Other Laboratory Tests 07/31/24 07:08 Brief Hx & Hospital Course: KESHIA CASTILLO is a 58-year-old male with a PMH of CAD, CHF, COPD, DM, HTN, AFib presented to the ED with the chief complaints of shortness of breath. Patient is currently on home oxygen 2 L as needed med yesterday patient started having worsening of shortness of breath associated with chills which is not relieved by inhaler and nebulizer, which brought her to visit ED. on my assessment patient denies fever, nausea, vomiting and a chest pain, palpitations, diaphoresis, sick contacts and other acute associated symptoms Patient required hospital admission for further evaluation and management of COPD and CHF exacerbation. Initially patient was on 3-4 L of oxygen NC started on cefepime, doxy along with Solu-Medrol PID and breathing treatments. Ordered panculture negative. Due to CHF exacerbation NSTEMI type 2 patient started on GDMT as tolerated, recent echocardiogram in May showed EF 25-30%, EKG, sinus rhythm no ST changes. CT angio of the chest ruled out a pulmonary embolism, suspected aspiration pneumonia. Patient developed aspiration pneumonia which leads to subtle respiratory distress which required intubation and patient was on mechanical ventilation, after 1 day patient has successfully extubated, downgraded the medications slowly as patient tolerated. Pulmonology senior microsoft consultant evaluated the patient and advised to continue current management. Due to AFib patient was on therapeutic Lovenox and amiodarone. Patient condition was closely monitored. Patient condition was improved, hemodynamically stable and in condition to be discharged home with optimal medications. Patient was advised to follow up with PCP, GI For workup TINSLEY and pulmonology on outpatient for possible sleep studies. General Appearance: Alert, Oriented X3, Cooperative, Not in acute distress HEENT: Atraumatic, Mucous membranes moist/pink Respiratory: Clear to auscultation, Normal air movement, mild crackles Cardiovascular: Regular rate, Normal S1, Normal S2, No murmurs Abdominal: Active bowel sounds, Soft, no distention, no tenderness Extremities: No edema, Normal pulses, No tenderness/swelling Skin: No Significant rash, except past surgical scars Neuro: Normal speech, sensorimotor deficits none Psych/Mental Status: Mental status NL, Mood NL Nurse was there as sharperone during examination Operations or Procedures CHEST RADIOGRAPH IMPRESSION: No acute abnormality demonstrated. INDICATION: Rule out cirrhosis, pain TECHNIQUE: Multiple real-time sonographic images were obtained of the right upper quadrant. IMPRESSION: Cholelithiasis without sonographic evidence of acute cholecystitis. Coarsened liver echotexture suggestive of chronic liver disease. EXAM: CT CHEST WITHOUT CONTRAST Impression: 1. No acute cardiopulmonary disease. 2. Mild cardiomegaly. EXAM: US BILAT LOWER DVT Impression: 1. No sonographic evidence of deep venous thrombosis throughout the bilateral lower extremities from the popliteal veins to the common femoral veins. EXAM: US BILAT UPPER EXT ART DUPLEX Impression: 1. No evidence of hemodynamically significant stenosis throughout the bilateral upper extremity arterial systems. Procedure: CT CT ANGIO CHEST CONTRAST IMPRESSION: 1. Bibasilar consolidations suspicious for pneumonia or aspiration. 2. Trace bilateral pleural effusions. 3. No pulmonary embolism. Condition at Discharge: Stable Final Diagnosis/Problems List # Acute on chronic hypoxic & Hypercapnic respiratory failure s/p Extubation # COPD exacerbation # G+/- BActerial PNA Acute # septic shock from pneumonia, likely aspiration pneumonia, Gram-positive versus Gram-negative bacteria # Acute on chronic systolic CHF exacerbation # NSTEMI II likely due to above # history of hypertension # CAD with PTCA # dyslipidemia # uncontrolled type 2 DM # H/o Afib # ?TINSLEY/MASH # Morbid obesity # Thrombocytopenia, likely reactive due to liver disease # Anemia, mild, normocytic normochromic due to liver disease Discharge Disposition: Home Discharge Instruct/Medications Diet: Consistent carbohydrate, Cardiac 2g Na,low cholest Activity: No Restrictions, As Tolerated Follow Up/Referral: Pulmonology for sleep studies PCP GI for workup of TINSLEY Medications: Prednisolone taper dose 40 mg for 1st 5days, 20 mg for next 3 days, followed by 10 mg for next 4 days Doxycycline for 5 days b.i.d. Eliquis 5 mg b.i.d. Resume home medication Discharge Statement: "Patient was advised to return to the ER or call 911 if any headaches, dizziness, shortness of breath, chest pain, abdominal pain, bleeding, fevers, or worsening of medical condition. Patient was counseled about treatment plan, medications, possible side effects, patientverbalized understanding. All questions were answered to the best of my ability. This discharge took greater then 30 minutes in planning, reviewing documentation, counseling the patient, and discussing with other team members." ASSESSMENT ASSESSMENT Assessment COPD and CHF exacerbation ELY HOUSE RESIDENT Jul 31, 2024 11:32
[2024-07-31 13:38] LABS: Base Excess 2.6 mmol/L (-2.0-3.0)
--- NOTE | 2024-07-31 23:26 | DVHPN2 ---
Progress Note - Dictate Date Seen: Jul 31, 2024 Medical Necessity Reason Pt with a Central, PICC or Fol: Yes The following are medically ne: Central Line, Morel Catheter Reason for morel catheter: Strict I&O Subjective Patient seen and examined at bedside. Remains on supplemental oxygen Overnight events reviewed. vital signs Vital Sign Date Time Temp Pulse Resp B/P (MAP) Pulse Ox O2 Delivery O2 Flow Rate FiO2 07/31/24 17:00 97.5 85 18 125/75 (92) 91 97.5 07/31/24 11:59 Room Air* 0 21 Total Intake and Output 07/30/24 07/30/24 07/31/24 15:00 23:00 07:00 Intake Total 100 ml 780 ml 500 ml Output Total 1450 ml 520 ml Balance 100 ml -670 ml -20 ml objective Gen.: Patient lying in bed in no apparent distress. On supplemental oxygen. Head: Normocephalic, atraumatic. Eyes: EOMI/PERRLA. Ears: Normal hearing. Normal anatomy. Neck/trachea: Trachea midline, supple. Nose: Normal external anatomy. Mouth: Moist mucous membranes. Chest: Decreased air entry bilaterally. No wheezing or rhonchi. Cardiovascular: Positive S1, positive S2. Regular rate and rhythm. Abdomen: Positive bowel sounds in all 4 quadrants. Soft, non-tender, non- distended. : Deferred. Rectal: Deferred. Skin: Warm, dry. Intact. Extremities: 2+ radial pulses bilaterally. No lower extremity edema. Neuro: Awake, alert, oriented x3. No gross motor or sensory deficits. Cranial nerves II through XII intact. Gait not assessed. laboratory and microbiology Laboratory Tests 07/31/24 07:08 Test 07/31/24 07:08 Range/Units Serum Glucose 100 74-106 mg/dL Assessment/Plan Impression: Aspiration Acute hypoxemic respiratory failure Pneumonia Pleural effusions Atelectasis Morbid obesity Events: Remains on supplemental oxygen, 2 LPM NC Taper O2 as tolerated Arrange for home oxygen. Head of bed elevation Aspiration precautions Continue bronchodilators On Xopenex Continue antibiotics Steroids - taper as tolerated. Incentive spirometry Accu-Cheks, ISS. Maintain euvolemia Monitor renal function. Patient is stable for discharge from the pulmonary standpoint. Follow up in 2 weeks in Pulmonary Clinic. Recommend outpatient sleep study and PFTs. Labs and imaging reviewed. Rest of plan as noted below. Plan: S/p extubation on 07/28/24 Continue supplemental oxygen Titrate to keep O2 sats above 92%. Continue supportive care Antibiotics Continue bronchodilators Steroids - taper as tolerated. Maintain euvolemia Monitor renal function. Monitor electrolytes. Supplement as necessary. Monitor ins and outs. GI prophylaxis. DVT prophylaxis. Prognosis: Guarded given patient's multiple co-morbidities. Rest of plan per hospitalist and other consultants. Thank you, Dr. Velez, for allowing me to participate in this patient's care. Further recommendations will depend on the patient's clinical course. Please do not hesitate to contact me if you have any questions or concerns. This medical document was created using an electronic medical record system with [employer] dictation system. Although these documentations are being carefully reviewed, there may still be some phonetic and typographical changes. The errors are purely typographical, due to imperfection on the software program, and do not reflect any compromise in the patient's medical care. Dietary Evaluation Review Comments: 1) If patient remains NPO > 7 days, consider EN/TPN to meet at least 75% of daily estimated needs 2) If GI route is preferred, consider Glucerna 1.2 @ 45 mL/hr goal rate as tolerated. Goal rate will provide 1296, 65g Pro, and 845 mL free H2O per 24 hrs. TF regimen will meet 83% estimated daily energy needs and ~73% estimated daily protein needs 3) Advance to 60g CCHO cardiac diet when medically feasible, pending PRINTING WORKER SUPERVISOR approval 4) Continue to monitor I&O, labs, and skin integrity Expected Outcomes/Goals: 1) appetite and labs to advance 2) f/u in 3 days Plan discussed with: Patient, Other (MICHELLE Pope) MARYANNE ELLIOTT MD Jul 31, 2024 23:26
== END 2024-07-31 16:58 | disposition home health service (06) | DRG 871 ==
LOC: ER 22:45 → EDBD 22:45 → OVERFLOW 07-24 01:10 → WEST WING 07-24 19:55 → ICU WEST 07-27 15:28 → TELE-WESTW 07-29 23:09
PROVIDERS: ADMIT Student in an Organized Health Care Education/Training Program; ATTEND Student in an Organized Health Care Education/Training Program
PROC: 0BH17EZ Insertion of Endotracheal Airway into Trachea, Via Natural or Artificial Opening (ICD-10-PCS; principal; 2024-07-27)
PROC: 5A1935Z Respiratory Ventilation, Less than 24 Consecutive Hours (ICD-10-PCS; 2024-07-27)
PROC: 05HM33Z Insertion of Infusion Device into Right Internal Jugular Vein, Percutaneous Approach (ICD-10-PCS; 2024-07-27)
DX: A41.59 Other Gram-negative sepsis (principal); I21.A1 Myocardial infarction type 2; I50.43 Acute on chronic combined systolic (congestive) and diastolic (congestive) heart failure; J96.21 Acute and chronic respiratory failure with hypoxia; J15.69 Pneumonia due to other Gram-negative bacteria; R65.21 Severe sepsis with septic shock; J15.9 Unspecified bacterial pneumonia; J69.0 Pneumonitis due to inhalation of food and vomit; J44.1 Chronic obstructive pulmonary disease with (acute) exacerbation; J44.0 Chronic obstructive pulmonary disease with (acute) lower respiratory infection; Z68.41 Body mass index [BMI] 40.0-44.9, adult; I11.0 Hypertensive heart disease with heart failure; E11.9 Type 2 diabetes mellitus without complications; Z20.822 Contact with and (suspected) exposure to COVID-19; K75.81 Nonalcoholic steatohepatitis (NASH); I25.10 Atherosclerotic heart disease of native coronary artery without angina pectoris; E66.01 Morbid (severe) obesity due to excess calories; D69.6 Thrombocytopenia, unspecified; D64.9 Anemia, unspecified; E78.5 Hyperlipidemia, unspecified; I48.91 Unspecified atrial fibrillation; K76.9 Liver disease, unspecified; Z79.02 Long term (current) use of antithrombotics/antiplatelets; Z79.84 Long term (current) use of oral hypoglycemic drugs; Z79.4 Long term (current) use of insulin; Z79.899 Other long term (current) drug therapy; Z95.5 Presence of coronary angioplasty implant and graft; Z83.3 Family history of diabetes mellitus; Z82.49 Family history of ischemic heart disease and other diseases of the circulatory system; Z83.6 Family history of other diseases of the respiratory system
CPT/HCPCS: 36415; 36556; 36600; 71045; 71250; 71275; 76705; 80048; 80053; 80307; 80320; 81001; 82805; 82962; 83036; 83605; 83735; 83880; 84443; 84484; 85025; 85610; 85730; 87040; 87070; 87081; 87205; 87426; 87804; 92610; 93005; 93970; 94002; 94003; 94640; 97110; 97116; 97163; 97530; G0378; J0330; J1815; J2470; J2543

== ENCOUNTER → 2024-09-03 | Outpatient (CLI) | payer OTHER, MEDICAID ==
[~2024-09-03] MED LIST changes: +APIX5TAB PO; -ATOR20TA50 PO; -ATOR80TA PO; +DOX100T PO; +MELA5TAB16 PO; -METF-370 PO; -PANT40TA2 PO; +PRED20TA2 PO
== END | disposition home or self-care (01) ==
LOC: RT 14:34
PROVIDERS: ATTEND Internal Medicine Pulmonary Disease
DX: J44.9 Chronic obstructive pulmonary disease, unspecified (principal)
CPT/HCPCS: 94060; 94727; 94729

== ENCOUNTER 2024-09-07 03:15 | Inpatient (IN) | payer OTHER, MEDICAID ==
[2024-09-07] VITALS (24 sets, daily range): BP systolic 86–121; BP diastolic 23–74; PULSE 74–95; RESP 18–35; TEMP 98–98.8; O2SAT 86–100
[~2024-09-07] VITALS: Ht 157.5 cm; Wt 107.5 kg
--- NOTE | 2024-09-07 03:48 | ED.PDOC ---
SOB-HPI HPI Comments 63-year-old female who came to ER via EMS due to shortness of breath., Patient has history of hypertension diabetes, CHF, COPD, on home oxygen at 4 L/min. Patient has been experiencing shortness of breath since last night, worsening orthopnea with chest tightness and dry nonproductive cough, was saturating 90% at 4 L/min, with a blood sugar of 296 on scene. Patient has a history of being intubated twice already Chief Complaint: Shortness of Breath Time Seen by MD: 03:47 Primary Care Provider: UNKNOWN Reviewed notes: Nurses Notes Information Source: Patient, Emergency Med Personnel Mode of Arrival: EMS Severity: Moderate Timing: Hours Duration: Since onset Context: At Rest, With Light Exertion PE Risk Factors: None History of: COPD, CHF Prehospital treatment: Breathing Tx, Oxygen Modifying Factors: Nothing Associated Signs and Symptoms: Fever, Wheeze, Cough, Nasal Congestion Quality: Aching, Tightness Radiation: No Radiation If cough with SOB: Non-Productive Past Medical History PAST MEDICAL HISTORY: CAD, CHF, COPD, DM, HTN Surgical History: Denies all surgeries 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, Unknown Family History Family History: Reviewed,noncontributory to illness Social History Smoker: Non-Smoker Alcohol: Denies ETOH Use Drugs: Denies Drug Use Lives In: Home Constitutional: denies: chills, diaphoresis, fatigue, fever, malaise, sweats, weakness, others EENTM: denies: blurred vision, double vision, ear bleeding, ear discharge, ear drainage, ear pain, ear ringing, eye pain, eye redness, hearing loss, mouth pain, mouth swelling, nasal discharge, nose bleeding, nose congestion, nose pain, photophobia, tearing, throat pain, throat swelling, voice changes, others Respiratory: reports: cough, orthopnea, SOB at rest, shortness of breath, SOB with excertion; denies: hemoptysis, stridor, wheezing, others Cardiovascular: denies: chest pain, dizzy spells, diaphoresis, Dyspnea on exertion, edema, irregular heart beat, left arm pain, lightheadedness, palpitations, PND, syncope, others Gastrointestinal: denies: abdomen distended, abdominal pain, blood streaked bowels, constipated, diarrhea, dysphagia, difficulty swallowing, hematemesis, melena, nausea, poor appetite, poor fluid intake, rectal bleeding, rectal pain, vomiting, others Genitourinary: denies: abnormal vagina bleeding, burning, dyspareunia, dysuria, flank pain, frequency, hematuria, incontinence, pain, , vagina discharge, urgency, others Neurological: denies: dizziness, fainting, headache, left sided numbness, left sided weakness, numbness, paresthesia, pre-existing deficit, right sided numbness, right sided weakness, seizure, speech problems, tingling, tremors, wea kness, others Musculoskeletal: denies: back pain, gout, joint pain, joint swelling, muscle pain, muscle stiffness, neck pain, others Integumetry: denies: bruises, change in color, change in hair/nails, dryness, l aceration, lesions, lumps, rash, wounds, others Allergic/Immunocompromised: denies: Difficulty Healing, Frequent Infections, Hives, Itching, others Hematologic/Lymphatic: denies: anemia, blood clots, easy bleeding, easy bruising, swollen glands, others Endocrine: denies: excessive hunger, excessive sweating, excessive thirst, excessive urination, flushing, intolerance to cold, intolerance to heat, unexplained weight gain, unexplained weight loss, others Psychiatric: denies: anxiety, bipolar disorder, depression, hopeless, panic disorder, schizophrenia, sleepless, suicidal, others Physical Exam General Appearance: No Apparent Distress, Normal HEENT: Normal ENT Inspection, Pharynx Normal, TMs Normal Neck: Full Range of Motion, Non-Tender, Normal, Normal Inspection Respiratory: Chest Non-Tender, Lungs Clear, No Accessory Muscle Use, No Respiratory Distress, Normal Breath Sounds Cardiovascular: No Edema, No JVD, No Murmur, No Gallop, Normal Peripheral Pulses, Regular Rate/Rhythm Breast Exam: Deferred Gastrointestinal: No Organomegaly, Non Tender, No Pulsatile Mass, Normal Bowel Sounds, Soft Genitalia: Deferred Pelvic: Deferred Rectal: Deferred Extremities: No calf tenderness, Normal capillary refill, Normal inspection, Normal range of motion, Non-tender, No pedal edema Musculoskeletal : Apperance: Normal Neurologic: Alert, on air host II-XII nml as Tested, No Motor Deficits, Normal Affect, Normal Mood, No Sensory Deficits Cerebellar Function: Normal Reflexes: Normal Skin: Dry, Normal Color, Warm Lymphatic: No Adenopathy EKG EKG : Pulse Rate (adult): 93 Cardiac Rhythm: NSR Hypertrophy: LVH Was a procedure done? Was a procedure done?: No Differential Dx Differential Diagnosis: Anxiety, Asthma, Bronchitis, CHF, COPD, Pneumonia, Respiratory Distress, Pharyngitis, URI X-Ray, Labs, Meds, VS Vital Signs Date Time Temp Pulse Resp B/P (MAP) Pulse Ox O2 Delivery O2 Flow Rate FiO2 09/07/24 04:17 20 96 Nasal Cannula* 4 36 09/07/24 03:55 99.0 82 20 165/120 (135) 99.0 09/07/24 03:50 Nasal Cannula* 4 36 09/07/24 03:50 98.7 90 32 168/55 (92) 95 98.7 09/07/24 03:48 93 09/07/24 03:18 93 Lab Test 09/07/24 04:40 09/07/24 03:37 Range/Units Troponin I High Sensitivity Pending 29 </=34 ng/L White Blood Count 8.5 4.4-10.8 10^3/uL Red Blood Count 3.02 L 4.0-5.20 10^6/uL Hemoglobin 9.0 L 12.2-16.2 g/dL Hematocrit 28.0 L 36.0-46.0 % Mean Corpuscular Volume 92.6 80.0-100.0 fL Mean Corpuscular Hemoglobin 29.9 28.0-32.0 pg Mean Corpuscular Hemoglobin Concent 32.3 32.0-36.0 g/dL Red Cell Distribution Width 17.0 H 11.8-14.3 % Platelet Count 193 140-450 10^3/uL Mean Platelet Volume 9.2 6.9-10.8 fL Neutrophils (%) (Auto) 92.7 H 37.0-80.0 % Lymphocytes (%) (Auto) 3.1 L 10.0-50.0 % Monocytes (%) (Auto) 3.9 0.0-12.0 % Eosinophils (%) (Auto) 0.0 0.0-7.0 % Basophils (%) (Auto) 0.3 0.0-2.0 % Neutrophils # (Auto) 7.9 1.6-8.6 10 ^3/uL Lymphocytes # (Auto) 0.3 L 0.4-5.4 10 ^3/uL Monocytes # (Auto) 0.3 0-1.3 10 ^3/uL Eosinophils # (Auto) 0 0-0.8 10 ^3/uL Basophils # (Auto) 0 0-0.2 10 ^3/uL Nucleated Red Blood Cells 0.1 % Prothrombin Time 10.8 9.3-11.8 sec Prothrombin Time INR 1.02 0.9-1.15 Activated Partial Thromboplast Time 26.5 24.5-34.5 SEC Sodium Level 139 136-145 mmol/L Potassium Level 4.5 3.5-5.1 mmol/L Chloride Level 104 98-107 mmol/L Carbon Dioxide Level 23 20-31 mmol/L Anion Gap 12 5-15 Blood Urea Nitrogen 20 9-23 mg/dL Creatinine 1.11 H 0.550-1.02 mg/dL Glomerular Filtration Rate Calc 55 >90 mL/min BUN/Creatinine Ratio 18.0 10.0-20.0 Serum Glucose 283 H 74-106 mg/dL Calcium Level 9.5 8.7-10.4 mg/dL Total Bilirubin 0.9 0.2-1.0 mg/dL Aspartate Amino Transferase (AST) 18 13-40 U/L Alanine Aminotransferase (ALT) 17 7-40 U/L Alkaline Phosphatase 68 46-116 U/L B-Type Natriuretic Peptide 679.10 0-100 pg/mL Total Protein 6.2 5.7-8.2 g/dL Albumin 4.1 3.2-4.8 g/dL Current Medications Medications (Trade) Dose Ordered Sig/Jeanne Route Start Time Stop Time Status Last Admin Albuterol (Ventolin Medneb) 5 mg ONCE ONCE NEB 09/07/24 04:15 09/07/24 04:16 DC 09/07/24 04:19 Ipratropium [place] (Atrovent Medneb) 0.5 mg ONCE ONCE NEB 09/07/24 04:15 09/07/24 04:16 DC 09/07/24 04:19 Time of 1ST Reevaluation: 03:44 Reevaluation 1ST: Unchanged Patient Education/Counseling: Diagnosis, Treatment Family Education/Counseling: No Family Present Departure 1 Departure Time of Disposition: 05:25 Impression: Primary Impression: Acute hypoxic respiratory failure Additional Impressions: Congestive heart failure Acute exacerbation of chronic obstructive pulmonary disease (COPD) Disposition: 09 ADMITTED INPATIENT Condition: Guarded Discharged With: Self Comments Shortness of Breath - CHF/COPD Exacerbation Chief Complaint: Shortness of breath History of Present Illness: 63-year-old female with known history of CHF and COPD presents to the ED with worsening shortness of breath. Patient was recently admitted approximately one week ago with similar symptoms. She reports her dyspnea is exacerbated by physical activity and orthopnea is present when lying flat at night. Current oxygen saturation is 88% on room air, improving to mid-90s with 4L oxygen via nasal cannula. Review of Systems: Constitutional: Shortness of breath Respiratory: Dyspnea on exertion, orthopnea Cardiovascular: No chest pain reported Other systems: Deferred or noncontributory Past Medical History: 1. Congestive Heart Failure (CHF) 2. 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 CBC: - Hemoglobin: 9.28 g/dL (Low) - WBC: 8.5 (Normal) 2. Cardiac markers: - Troponin: 29 (Normal) - BNP: 680 (Elevated) 3. Chemistry: - Creatinine: 1.11 (Borderline elevated) - BUN: 20 (Normal) Imaging and Other Relevant Results: Chest X-ray: Pulmonary vascular congestion consistent with congestive heart failure Medical Decision Making: Summary Statement: 63-year-old female with history of CHF and COPD presenting with acute respiratory failure with hypoxia, likely due to acute on chronic CHF exacerbation with concurrent COPD exacerbation. Problem List: 1. Acute hypoxic respiratory failure 2. CHF exacerbation 3. COPD exacerbation 4. Anemia Differential Diagnosis: 1. CHF exacerbation 2. COPD exacerbation 3. Pneumonia 4. Acute coronary syndrome 5. Pulmonary embolism ED Course: Patient received IV Lasix and breathing treatment. Despite interventions, patient continues to have respiratory distress requiring oxygen supplementation. Decision made to admit for further management. Assessment and Plan: 1. Acute Hypoxic Respiratory Failure: - Admit to hospital - Continue oxygen supplementation - Monitor oxygen saturation 2. CHF Exacerbation: - Continue IV Lasix - Daily weights - Strict I/O monitoring 3. COPD Exacerbation: - Continue breathing treatments - Consider steroid therapy 4. Anemia: - Further workup during admission - Monitor hemoglobin Billing Information: ICD-10: J96.01 - Acute respiratory failure with hypoxia ICD-10: I50.9 - Heart failure, unspecified ICD-10: J44.1 - COPD with acute exacerbation ICD-10: D64.9 - Anemia, unspecified Critical Care Note Critical Care Time?: Yes (35 min-critical care time only) Critical care comment: Shortness of breath\ Total critical care time: Approximately 36 minutes Due to a high probability of clinically significant, life threatening deterioration, the patient required my highest level of preparedness to intervene emergently and I personally spent this critical care time directly and personally managing the patient. This critical care time included obtaining a history; examining the patient; pulse oximetry; ordering and review of studies; arranging urgent treatment with development of a management plan; evaluation of patient's response to treatment; frequent reassessment; and, discussions with other providers. This critical care time was performed to assess and manage the high probability of imminent, life-threatening deterioration that could result in multi-organ failure. It was exclusive of separately billable procedures and treating other patients. Stability Stability form required: No Heart Score Heart Score: Heart Score Response (Comments) Value History Moderate Suspicious 1 EKG Repolarization Disturb 1 Age >65 2 Risk Factors >3 or Hx ASHD 2 Troponin Normal limit 0 Total 6 I personally scribed for CHANEL OROSCO MD ([email or web address]) on 09/07/24 at 03:48. Electronically submitted by Rafael Muro ([facility]). CHANEL OROSCO MD Sep 07, 2024 03:48
--- NOTE | 2024-09-07 04:04 | DVH ---
CHEST RADIOGRAPH Indication: SOB Technique: Single frontal view of the chest was obtained COMPARISON: XY CHEST PORTABLE on DOS: 07/29/24, XY CHEST PORTABLE on DOS: 07/28/24, XY CHEST XRAY 1 VIE W on DOS: 07/28/24, XY CHEST PORTABLE on DOS: 07/27/24, XY CHEST PORTABLE on DOS: 07/27/24 FINDINGS: Lines and Tubes: None Lungs: Moderate interval progression in diffuse increased prominence of the pulmonary vasculature. N o evidence of focal consolidation. Pleura: No effusion. No pneumothorax. Cardiomediastinal contours: Stable cardiomegaly. Bones: Unremarkable IMPRESSION: 1. Moderate interval progression in diffuse increased prominence of the pulmonary vasculature. 2. Stable cardiomegaly.
[2024-09-07] MEDS: IPRATROPIUM BROM 0.5 MG/2.5ML INH SOL NEB ONE ×3 (04:19→07:39)
[2024-09-07] MEDS: ALBUTEROL SULF 2.5 MG/0.5ML(0.5%) NEB SOLN NEB ONE ×3 (04:19→07:39)
[2024-09-07 04:26] LABS: Basophils # (auto) 0 10 ^3/uL (0-0.2); Basophils % (auto) 0.3 % (0.0-2.0); Eosinophils # (auto) 0 10 ^3/uL (0-0.8); Lymphocytes # (auto) 0.3 10 ^3/uL (0.4-5.4); Lymphocytes % (auto) 3.1 % (10.0-50.0); Mean Corpuscular Hemoglobin 29.9 pg (28.0-32.0); Mean Corpuscular Hgb Conc. 32.3 g/dL (32.0-36.0); Mean Corpuscular Volume 92.6 fL (80.0-100.0); Monocytes # (auto) 0.3 10 ^3/uL (0-1.3); Monocytes % (auto) 3.9 % (0.0-12.0); Neutrophils # (auto) 7.9 10 ^3/uL (1.6-8.6); Neutrophils % (auto) 92.7 % (37.0-80.0); Nucleated Red Blood Cells % 0.1 %; Platelet Count (auto) 193 10^3/uL (140-450); Red Blood Cells 3.02 10^6/uL (4.0-5.20); White Blood Cell 8.5 10^3/uL (4.4-10.8)
[2024-09-07 04:30] LABS: Alanine Aminotransferase 17 U/L (7-40); Albumin 4.1 g/dL (3.2-4.8); Alkaline Phosphatase 68 U/L (46-116); Anion Gap 12 (5-15); Aspartate Aminotransferase 18 U/L (13-40); Bilirubin, Total 0.9 mg/dL (0.2-1.0); Blood Urea Nitrogen 20 mg/dL (9-23); Calcium 9.5 mg/dL (8.7-10.4); Carbon Dioxide 23 mmol/L (20-31); Chloride 104 mmol/L (98-107); INR 1.02 (0.9-1.15); Partial Thromboplastin Time 26.5 SEC (24.5-34.5); Potassium 4.5 mmol/L (3.5-5.1); Prothrombin Time 10.8 sec (9.3-11.8); Sodium 139 mmol/L (136-145); Total Protein 6.2 g/dL (5.7-8.2)
[2024-09-07 04:54] LABS: Glucose 283 mg/dL (74-106)
[2024-09-07] MEDS: FUROSEMIDE 40 MG/4 ML VIAL IV ONE ×2 (05:39→08:02)
[2024-09-07] MEDS: ASPirin-EC 81 mg tab PO ONE (05:40)
--- NOTE | 2024-09-07 05:42 | ECG ---
[facility] Test Date: 2024-09-07 Test Time: 03:18:41 Pat Name: KESHIA CASTILLO Department: ED Room: 0250T Gender: F Corporate Associate Attorney: HAYLEE : 1960 Requested By: CHANEL OROSCO Order Number: [id number] Reading MD: Hunter Davidson Measurements Intervals [place] Rate: 93 P: 71 NV: 222 QRS: -7 QRSD: 111 T: 129 QT: 373 QTc: 464 Interpretive Statements Sinus rhythm Prolonged NV interval LVH with IVCD and secondary repol abnrm Minimal ST elevation, inferior leads Electronically Signed On 09-08-2024 20:34:36 PDT by Hunter Davidson Please click the below link to view image of tracing.
[2024-09-07 06:43] LABS: Urine Bacteria None Seen /hpf (None Seen); Urine Blood Negative /uL (Negative); Urine Clarity Clear (Clear); Urine Color Light-Yellow (Yellow); Urine Mucus FEW (None Seen); Urine Protein, UAD Negative (Negative); Urine Specific Gravity 1.017 (1.001-1.035); Urine Squamous Epithelial Cell FEW /hpf (<5); Urine Urobilinogen Normal (Negative); Urine WBC < 1 /HPF (0-5); Urine pH 6.5 (5.0-9.0)
--- NOTE | 2024-09-07 07:09 | DVHHP2 ---
History of Present Illness Reason for Visit: shortness of breath History of Present Illness [address] [facility] with a complex past medical history including atrial fibrillation, coronary artery disease (CAD), diabetes mellitus, congestive heart failure (CHF) with a known EF of 25-30% (last echocardiogram June 01, 2024), hyperlipidemia, COPD on home O2 (4L), pneumonia, and anemia. The patient was recently discharged from [facility] on Monday after a 10-day admission, reportedly for respiratory issues. She was discharged home on steroids and nebulizer treatments per her polymer tester, Dr. Aguero. The patients daughter, who is at bedside, reports that although the patient was stable initially, she began experiencing worsening shortness of breath over the past four days. Over the last two days, her symptoms significantly progressed, including increased dyspnea on exertion, chest tightness, a dry cough, and a Tmax of 100.5F. Upon presentation to the ED, the patient was hypoxic on her baseline 4L O2 with saturations of 90% and required BiPAP support. She was treated with albuterol, Atrovent, and IV Lasix. while in ED labs revealed hemoglobin of 9.1, hematocrit 28.0, BNP elevated at 679, and glucose 283. Chest x-ray showed no acute pneumonia but was notable for pulmonary edema consistent with CHF exacerbation. Troponins were negative x2. The patient has a history of two prior intubations this year (June and July 2024) due to COPD exacerbat ions. She quit smoking over 10 years ago. Given her presentation, she will be admitted for management of acute on chronic respiratory failure due to combined CHF and COPD exacerbation. Past Medical History see hpi above Past Surgical History see hpi above Family History Reviewed, non-contributory to the management of this case. Past Social History The patient lives at home, denies smoking, alcohol or illicit drugs abuse. quite smoking 10 yrs ago Review of Systems Constitutional: No: Fever, Chills, Sweats, Weakness, Malaise, Other Eyes: No: Pain, Vision change, Conjunctivae inflammation, Eyelid inflammation, Other, Redness ENT: No: Ear pain, Ear discharge, Nose pain, Nose discharge, Nose congestion, Mouth pain, Mouth swelling, Throat pain, Throat swelling, Other Respiratory: Shortness of breath, SOB with excertion; No: Cough, Dry, Wheezing, Hemoptysis, Pleuritic Pain, Sputum, Wheezing, Other Cardiovascular: No: Chest Pain, Palpitations, Orthopnea, Paroxysmal Noc. Dyspnea, Edema, Lt Headedness, Other Gastrointestinal: No: Nausea, Vomiting, Abdominal Pain, Diarrhea, Constipation, Melena, Hematochezia, Other Genitourinary: No Dysuria, No Frequency, No Incontinence, No Hematuria, No Retention, No Other Musculoskeletal: No: other, neck pain, shoulder pain, arm pain, back pain, hand pain, leg pain, foot pain Skin: No: Rash, Lesions, Jaundice, Bruising, Other Neurological: No: Weakness, Numbness, Incoordination, Change in speech, Confusi on, Seizures, Other Allergies: Coded Allergies: NO KNOWN ALLERGIES (Unverified , 04/04/24) Exam Vital Signs Vital Signs Date Time Temp Pulse Resp B/P (MAP) Pulse Ox O2 Delivery O2 Flow Rate FiO2 09/07/24 06:58 32 98 Nasal Cannula* 4 36 09/07/24 06:00 98.7 95 110/49 (69) 98.7 General Appearance: Alert, Oriented X3, Cooperative, moderate distress, Other (was placed on bipap) HEENT: Atraumatic, PERRLA, EOMI, Mucous membr. moist/pink Respiratory: Normal air movement, Other (diminished throughout ) Cardiovascular: Regular rate, Normal S1, Normal S2, No murmurs Abdominal: Normal bowel sounds, Soft, No tenderness, No hepatospenomegaly, No masses Extremities: No clubbing, No cyanosis, No edema, Normal pulses, No tenderness/swelling Skin: No rashes, No breakdown, No significant lesion Neuro: Other (neuro non focal hood equally strong ) Psych/Mental Status: Mental status NL, Mood NL Labs/Xrays Chest x-ray shows findings pulmonary edema I reviewed labs, imaging CT scan abdomen pelvis, EKG and all diagnostic studies on this patient from ED records and the medical chart Labs Test 09/07/24 06:23 09/07/24 04:40 09/07/24 03:37 Range/Units Urine Color Light-yellow Yellow Urine Clarity Clear Clear Urine pH 6.5 5.0-9.0 Urine Specific [place] 1.017 1.001-1.035 Urine Protein Negative Negative Urine Ketones Negative Negative Urine Blood Negative Negative /uL Urine Nitrite Negative Negative Urine Bilirubin Negative Negative Urine Urobilinogen Normal Negative mg/dL Urine Leukocyte Esterase Negative Negative /uL Urine RBC <1 0 - 4 /hpf Urine Microscopic WBC < 1 0-5 /HPF Urine Squamous Epithelial Cells Few <5 /hpf Urine Bacteria None seen None Seen /hpf Urine Mucus Few None Seen Urine Glucose 2+ H Normal mg/dL Troponin I High Sensitivity 36 *H </=34 ng/L White Blood Count 8.5 4.4-10.8 10^3/uL Red Blood Count 3.02 L 4.0-5.20 10^6/uL Hemoglobin 9.0 L 12.2-16.2 g/dL Hematocrit 28.0 L 36.0-46.0 % Mean Corpuscular Volume 92.6 80.0-100.0 fL Mean Corpuscular Hemoglobin 29.9 28.0-32.0 pg Mean Corpuscular Hemoglobin Concent 32.3 32.0-36.0 g/dL Red Cell Distribution Width 17.0 H 11.8-14.3 % Platelet Count 193 140-450 10^3/uL Mean Platelet Volume 9.2 6.9-10.8 fL Neutrophils (%) (Auto) 92.7 H 37.0-80.0 % Lymphocytes (%) (Auto) 3.1 L 10.0-50.0 % Monocytes (%) (Auto) 3.9 0.0-12.0 % Eosinophils (%) (Auto) 0.0 0.0-7.0 % Basophils (%) (Auto) 0.3 0.0-2.0 % Neutrophils # (Auto) 7.9 1.6-8.6 10 ^3/uL Lymphocytes # (Auto) 0.3 L 0.4-5.4 10 ^3/uL Monocytes # (Auto) 0.3 0-1.3 10 ^3/uL Eosinophils # (Auto) 0 0-0.8 10 ^3/uL Basophils # (Auto) 0 0-0.2 10 ^3/uL Nucleated Red Blood Cells 0.1 % Prothrombin Time 10.8 9.3-11.8 sec Prothrombin Time INR 1.02 0.9-1.15 Activated Partial Thromboplast Time 26.5 24.5-34.5 SEC Sodium Level 139 136-145 mmol/L Potassium Level 4.5 3.5-5.1 mmol/L Chloride Level 104 98-107 mmol/L Carbon Dioxide Level 23 20-31 mmol/L Anion Gap 12 5-15 Blood Urea Nitrogen 20 9-23 mg/dL Creatinine 1.11 H 0.550-1.02 mg/dL Glomerular Filtration Rate Calc 55 >90 mL/min BUN/Creatinine Ratio 18.0 10.0-20.0 Serum Glucose 283 H 74-106 mg/dL Calcium Level 9.5 8.7-10.4 mg/dL Total Bilirubin 0.9 0.2-1.0 mg/dL Aspartate Amino Transferase (AST) 18 13-40 U/L Alanine Aminotransferase (ALT) 17 7-40 U/L Alkaline Phosphatase 68 46-116 U/L B-Type Natriuretic Peptide 679.10 0-100 pg/mL Total Protein 6.2 5.7-8.2 g/dL Albumin 4.1 3.2-4.8 g/dL Assessment/Plan Assessment/Plan 63 yr old female Female with significant cardiopulmonary history presenting with acute hypoxic respiratory failure secondary to CHF and COPD exacerbation. Acute on Chronic hypoxic Respiratory Failure CHF & COPD Exacerbation cxr found chf Hypoxia requiring BiPAP, pulmonary edema on CXR, elevated BNP Plan: Admit to jojo or close respiratory monitoring Continue BiPAP to keep sats >92% ordered IV Lasix for volume overload ordered IV steroids for COPD exacerbation ordered Nebulizer treatments (albuterol/ipratropium) q2prn Consult Pulmonology for management guidance, Dr. Aguero Consult Cardiology for CHF optimization Dr. Moran Monitor O2 sats, wean BiPAP as tolerated no infection no antibiotics needed last echo 05/29/24 ef 60-65% chronic problems Atrial Fibrillation cont eliquis CAD Diabetes Mellitus ISS CHF (EF 25-30%) cont lasix Hyperlipidemia COPD on home O2 4l nc Anemia Pneumonia (recent) hx of intubation x2 last 07/2024 FEN / PPx Plan: IV hl due to CHF Monitor BMP and electrolytes, especially potassium with Lasix use Regular diet as tolerated DVT prophylaxis with SCDs and eliquis GI prophylaxis: Start PPI for stress ulcer prevention protonix home dose Disposition: Admit to OBS for management of CHF and COPD exacerbation with hypoxic respiratory failure. Pulmonology and Cardiology to co-manage. Monitor closely for potential need for escalation of care. Plan discussed with: Patient, Daughter Date of Service: Sep 07, 2024 Billing Provider: RASHEED LIM DNP Common Visit Codes: [id number] INP/OBS CARE (HIGH), [id number] CARE 30- 74 MIN (Total critical care time: Approximately 45 minutes This critical care time included obtaining a history; examining the patient; pulse oximetry; ordering and review of studies; arranging urgent treatment with development of a management plan; evaluation of patient's response to treatment; frequent reassessment; and, discussions with other providers.) RASHEED LIM DNP Sep 07, 2024 07:09
[2024-09-07] MEDS ORDERED: ASPirin 81 mg TAB PO ONE (07:45)
[2024-09-07] MEDS ORDERED: DOCUSATE SOD 100 MG CAP PO PRN (07:45)
[2024-09-07] MEDS ORDERED: NITROGLYCERIN 0.4 MG SL TAB SL PRN (07:45)
[2024-09-07] MEDS ORDERED: DEXTROSE (50%) 50ML SYRG IV PRN (07:45)
[2024-09-07] MEDS: NITROGLYCERIN 2% OINT 1GM PKG TD ONE (08:00)
[2024-09-07] MEDS: LORazepam 2MG/ML-1ML VIAL IV ONE ×2 (08:11)
[2024-09-07] MEDS: methylPREDNISolone SOD SUCC 125 MG/2 ML VL IV ONE (08:41)
[2024-09-07] MEDS: FUROSEMIDE 20 MG/2 ML VIAL IV ONE (08:41)
[2024-09-07] MEDS: FAMOTIDINE (10MG/ML) 2ML VL IV ONE (08:41)
[2024-09-07 09:02] LABS: Base Excess 3.7 mmol/L (-2.0-3.0)
--- NOTE | 2024-09-07 09:56 | DVHINCON2 ---
Date of service: Sep 07, 2024 Referring Physician ashia vora Reason for Consultation pneumonia History of Present Illness pt 63 yo female , h/o copd, frequent admissions, recently intubated at this facility. Pt returned to the ER with worsening dyspnea, cough and mucus. In ER on 4 lpm 02. CXR shows persistent infiltrates, more on the right Past Medical History COPD obesity former smoker HTN Family History: Cardiovascular disease G8 MOTHER Chronic obstructive pulmonary disease G8 MOTHER Diabetes mellitus G8 MOTHER Hypertension G8 MOTHER 19 CHILD, Name: Izabel Tucker Family History unremarkable Social History former smoker Allergies: Coded Allergies: NO KNOWN ALLERGIES (Unverified , 04/04/24) Home Meds Active Scripts Apixaban Base (ELIQUIS) 5 Mg Tab, 5 MG PO BID PRN for 30 Days, #60 TAB Prov[facility] [place] 07/31/24 Prednisone (Prednisone) 20 Mg Tab, 40 MG PO DAILY for 11 Days, #15 MG 40 mg for first 5 days, followed by 20 mg for next 3 days, followed by 10 mg for next 4 days [facility]/24 Melatonin (Melatonin) 5 Mg Tab, 5 MG PO HS PRN for 30 Days, #30 TAB [facility]/31/24 Doxycycline Monohydrate (Doxycycline Monohydrate) 100 Mg Tab, 100 MG PO Q12HR for 5 Days, #10 TAB [facility]/31/24 Reported Medications Ipratropium-Albuterol (COMBIVENT RESPIMAT) Respimat Aer, 1 AER IN UD for 30 Days, #360 07/31/24 Amiodarone HCl (Amiodarone HCl) 200 Mg Tab, 1 TAB PO DAILY for 30 Days, #30 07/31/24 Atorvastatin Calcium (Lipitor) 20 Mg Tab, 2 TAB PO DAILY for 30 Days, #60 07/31/24 Metformin Hydrochloride (Metformin Hcl Er) 500 Mg Tab, 1 TAB PO BID for 90 Days, #180 07/31/24 Famotidine (Famotidine) 20 Mg Tab, 1 TAB PO DAILY PRN for GERD for 30 Days, #30 05/30/24 Albuterol Sulfate (Albuterol Sulfate Hfa) 108 Mcg/Act Aer, 1-2 PUFF IN Q6HR PRN for 50 Days, #18 05/30/24 Benazepril Hcl (Benazepril Hcl) 20 Mg Tab, 1 TAB PO DAILY for 90 Days, #90 05/30/24 Furosemide (Furosemide) 20 Mg Tab, 1 TAB PO DAILY for 30 Days, #30 05/30/24 Fluticasone Furoate-Vilanterol (Breo Ellipta 200-25 Mcg/INH) 1 Inh Inh, 1 INH IN DAILY, INHALER 04/05/24 Metoprolol Tartrate (Lopressor) 25 Mg Tb, 25 MG PO DAILY, TAB 04/05/24 Gabapentin (Gabapentin) 800 Mg Tab, 800 MG PO BID, TAB 04/05/24 Montelukast Sodium (MONTELUKAST SODIUM) 10 Mg Tab, 1 TAB PO DAILY for 30 Days, #30 04/05/24 Clopidogrel Bisulfate (CLOPIDOGREL) 75 Mg Tab, 1 TAB PO DAILY for 30 Days, #30 04/05/24 Glipizide (Glipizide) 5 Mg Tab, 5 MG PO DAILY for 90 Days, #90 04/05/24 Current Medications Current Medications Medications (Trade) Dose Ordered Sig/Jeanne Route PRN Reason Start Time Stop Time Status Last Admin Amiodarone HCl (Cordarone Tablet) 200 mg DAILY PO 09/07/24 10:00 Apixaban (Eliquis) 5 mg BID PO 09/07/24 10:00 Atorvastatin Calcium (Lipitor) 40 mg HS PO 09/07/24 22:00 Clopidogrel Bisulfate (Plavix) 75 mg DAILY PO 09/07/24 10:00 Melatonin (Melatonin) 5 mg HS PRN PO SHORTNESS OF BREATH 09/07/24 07:45 Metoprolol Tartrate (Lopressor Tablet) 25 mg DAILY PO 09/07/24 10:00 Montelukast Sodium (Singulair Tablet) 10 mg HS PO 09/07/24 22:00 Ondansetron HCl (Zofran) 4 mg Q4HP PRN IV NAUSEA / VOMITING 09/07/24 07:45 Docusate Sodium (Colace Capsule) 100 mg BIDPRN PRN PO FOR CONSTIPATION 09/07/24 07:45 Morphine Sulfate 2 mg Q4HPRN PRN IV SEVERE PAIN (7-10 PAIN SCALE) 09/07/24 07:45 Nitroglycerin (Ntrostat Sublingual) 0.4 mg Q5MINP PRN SL FOR CHEST PAIN 09/07/24 07:45 Furosemide (Lasix Injection) 20 mg BIDD IV 09/07/24 18:00 Famotidine (Pepcid Injection) 20 mg DAILY IV 09/08/24 10:00 Methylprednisolone Sodium Succinate (Solu Medrol) 40 mg Q8HR IV 09/07/24 14:00 Aspirin 81 mg DAILY PO 09/08/24 10:00 Lorazepam (Ativan Inj) 0.5 mg Q6HP PRN IV ANXIETY 09/07/24 07:45 Diagnostic Test (Pha) (Accu-Chek Comfort Curve T) 1 strip Q6HR 09/07/24 12:00 Insulin Human Regular (InsuLIN R) Q6HR SC 09/07/24 12:00 Dextrose 50 ml UD PRN IV Blood Sugar LESS THAN 60 09/07/24 07:45 Albuterol (Ventolin Medneb) 2.5 mg Q2HPRN PRN NEB SHORTNESS OF BREATH 09/07/24 07:45 Ipratropium [place] (Atrovent Medneb) 0.5 mg Q2HPRN PRN NEB SHORTNESS OF BREATH 09/07/24 07:45 Azithromycin 250 ml @ 125 mls/hr DAILY IV 09/07/24 10:00 UNV Review of Systems appears cushingoid reduced breath sounds bilat in the lungs no peripheral edema otherwise WNL otherwise WNL Vital Signs Vital Signs Date Time Temp Pulse Resp B/P (MAP) Pulse Ox O2 Delivery O2 Flow Rate FiO2 09/07/24 08:41 117/69 09/07/24 07:15 95 Facial BiPAP Mask 45 09/07/24 07:15 98.7 21 100 4.0 98.7 Physical Exam appears cushingoid skin ok no rash HEENT WNL hs dual no murmurs reduced bs in the lungs abd soft non tender no peripheral edema Labs/Diagnostic Data Labs Test 09/07/24 08:57 09/07/24 07:10 09/07/24 06:23 09/07/24 03:37 Range/Units Blood Gas Specimen Type Arterial Blood Gas Sample Site Right brachial Blood Gas Patient Temperature 37.0 Arterial Blood Date Drawn [id number] Arterial Blood pH 7.444 7.350-7.450 Arterial Blood Partial Pressure CO2 41.9 32.0-45.0 mmHg Arterial Blood Partial Pressure O2 130.0 H 83.0-108.0 mmHg Arterial Blood HCO3 28.1 H 21.0-28.0 mmol/L Arterial Blood Oxygen Saturation 98.6 H 94.0-98.0 % Arterial Blood Base Excess 3.7 H -2.0-3.0 mmol/L Arterial Blood Oxyhemoglobin 97.5 94.0-98.0 % Arterial Blood Carboxyhemoglobin 0.2 L 0.5-1.5 % Arterial Blood Methemoglobin 0.9 0.0-1.5 % Raciel Test N/a Blood Gas Total Hemoglobin 9.70 L 12.0-16.0 g/dL Blood Gas Set Respiration Rate 14.0 Blood Gas Modality Mask - bipap Blood Gas Spontaneous Rate 29 FiO2 % 45.0 Blood Gas Spontaneous Tidal Volume 582 Blood Gas EPAP 5 Blood Gas IPAP 12 Troponin I High Sensitivity 39 *H </=34 ng/L Urine Color Light-yellow Yellow Urine Clarity Clear Clear Urine pH 6.5 5.0-9.0 Urine Specific [place] 1.017 1.001-1.035 Urine Protein Negative Negative Urine Ketones Negative Negative Urine Blood Negative Negative /uL Urine Nitrite Negative Negative Urine Bilirubin Negative Negative Urine Urobilinogen Normal Negative mg/dL Urine Leukocyte Esterase Negative Negative /uL Urine RBC <1 0 - 4 /hpf Urine Microscopic WBC < 1 0-5 /HPF Urine Squamous Epithelial Cells Few <5 /hpf Urine Bacteria None seen None Seen /hpf Urine Mucus Few None Seen Urine Glucose 2+ H Normal mg/dL White Blood Count 8.5 4.4-10.8 10^3/uL Red Blood Count 3.02 L 4.0-5.20 10^6/uL Hemoglobin 9.0 L 12.2-16.2 g/dL Hematocrit 28.0 L 36.0-46.0 % Mean Corpuscular Volume 92.6 80.0-100.0 fL Mean Corpuscular Hemoglobin 29.9 28.0-32.0 pg Mean Corpuscular Hemoglobin Concent 32.3 32.0-36.0 g/dL Red Cell Distribution Width 17.0 H 11.8-14.3 % Platelet Count 193 140-450 10^3/uL Mean Platelet Volume 9.2 6.9-10.8 fL Neutrophils (%) (Auto) 92.7 H 37.0-80.0 % Lymphocytes (%) (Auto) 3.1 L 10.0-50.0 % Monocytes (%) (Auto) 3.9 0.0-12.0 % Eosinophils (%) (Auto) 0.0 0.0-7.0 % Basophils (%) (Auto) 0.3 0.0-2.0 % Neutrophils # (Auto) 7.9 1.6-8.6 10 ^3/uL Lymphocytes # (Auto) 0.3 L 0.4-5.4 10 ^3/uL Monocytes # (Auto) 0.3 0-1.3 10 ^3/uL Eosinophils # (Auto) 0 0-0.8 10 ^3/uL Basophils # (Auto) 0 0-0.2 10 ^3/uL Nucleated Red Blood Cells 0.1 % Prothrombin Time 10.8 9.3-11.8 sec Prothrombin Time INR 1.02 0.9-1.15 Activated Partial Thromboplast Time 26.5 24.5-34.5 SEC Sodium Level 139 136-145 mmol/L Potassium Level 4.5 3.5-5.1 mmol/L Chloride Level 104 98-107 mmol/L Carbon Dioxide Level 23 20-31 mmol/L Anion Gap 12 5-15 Blood Urea Nitrogen 20 9-23 mg/dL Creatinine 1.11 H 0.550-1.02 mg/dL Glomerular Filtration Rate Calc 55 >90 mL/min BUN/Creatinine Ratio 18.0 10.0-20.0 Serum Glucose 283 H 74-106 mg/dL Calcium Level 9.5 8.7-10.4 mg/dL Total Bilirubin 0.9 0.2-1.0 mg/dL Aspartate Amino Transferase (AST) 18 13-40 U/L Alanine Aminotransferase (ALT) 17 7-40 U/L Alkaline Phosphatase 68 46-116 U/L B-Type Natriuretic Peptide 679.10 0-100 pg/mL Total Protein 6.2 5.7-8.2 g/dL Albumin 4.1 3.2-4.8 g/dL Plan/Recommendation acute exacerbation of copd pneumonia hypoxemic resp failre fluid retention management admit for iv steroids diurese monitor labs, lytes replace abx azithromycin dvt proph (pt had CTA and US venous doppler recently, no clots found) full code Plan discussed with: Patient RONALD MEJIA MD Sep 07, 2024 09:56
--- NOTE | 2024-09-07 10:19 | DVHINCON2 ---
Date Seen: Sep 07, 2024 Referring Physician JORGE A Sánchez Reason for Consultation Acute CHF exacerbation with elevated troponin History of Present Illness This is a 63-year-old female patient who presents to the emergency room with chief complaint of shortness of breath for three days and cough for two days. She was recently discharged from [facility] [place] and now comes to this facility for further evaluation of worsening shortness of breath. Cardiology has been consulted at this time for CHF exacerbation as well as elevated troponin levels. Initial twelve lead electrocardiogram reveals normal sinus rhythm with first- degree AV block left ventricular hypertrophy and artifact seen in multiple leads. Initial troponin level of 29ng/L with flat trend thereafter. Initial BNP level of 679.10pg/mL. Significant past medical history includes congestive heart failure, paroxysmal atrial fibrillation (on amiodarone and Eliquis therapy), coronary artery disease status post multiple PTCAs X 4 JOE (on ASA), hypertension, dyslipidemia, COPD with home oxygen, type 2 diabetes mellitus, and morbid obesity. The patient states that she follows up with color specialist in the outpatient setting. The patient reports that she was recently seen at [facility] where she was hospitalized for 10 days. During that admission, she reports undergoing a coronary angiogram in which no catheter based intervention was necessary. Past Medical History Past medical history reviewed. No other significant than mentioned above. Past Surgical History Bilateral tubal ligation Family History: Cardiovascular disease G8 MOTHER Chronic obstructive pulmonary disease G8 MOTHER Diabetes mellitus G8 MOTHER Hypertension G8 MOTHER 19 CHILD, Name: Armani Tucker Family History Family history reviewed. Social History Patient has a 15 pack-year history, quit smoking approximately 13 years ago Denies any illicit drug use Denies any alcohol use Allergies: Coded Allergies: NO KNOWN ALLERGIES (Unverified , 04/04/24) Home Meds Active Scripts Apixaban Base (ELIQUIS) 5 Mg Tab, 5 MG PO BID PRN for 30 Days, #60 TAB Prov:[facility] 07/31/24 Prednisone (Prednisone) 20 Mg Tab, 40 MG PO DAILY for 11 Days, #15 MG 40 mg for first 5 days, followed by 20 mg for next 3 days, followed by 10 mg for next 4 days Prov:[facility] 07/31/24 Melatonin (Melatonin) 5 Mg Tab, 5 MG PO HS PRN for 30 Days, #30 TAB Prov[facility] 07/31/24 Doxycycline Monohydrate (Doxycycline Monohydrate) 100 Mg Tab, 100 MG PO Q12HR for 5 Days, #10 TAB Prov[facility] 07/31/24 Reported Medications Ipratropium-Albuterol (COMBIVENT RESPIMAT) Respimat Aer, 1 AER IN UD for 30 Days, #360 07/31/24 Amiodarone HCl (Amiodarone HCl) 200 Mg Tab, 1 TAB PO DAILY for 30 Days, #30 07/31/24 Atorvastatin Calcium (Lipitor) 20 Mg Tab, 2 TAB PO DAILY for 30 Days, #60 07/31/24 Metformin Hydrochloride (Metformin Hcl Er) 500 Mg Tab, 1 TAB PO BID for 90 Days, #180 07/31/24 Famotidine (Famotidine) 20 Mg Tab, 1 TAB PO DAILY PRN for GERD for 30 Days, #30 05/30/24 Albuterol Sulfate (Albuterol Sulfate Hfa) 108 Mcg/Act Aer, 1-2 PUFF IN Q6HR PRN for 50 Days, #18 05/30/24 Benazepril Hcl (Benazepril Hcl) 20 Mg Tab, 1 TAB PO DAILY for 90 Days, #90 05/30/24 Furosemide (Furosemide) 20 Mg Tab, 1 TAB PO DAILY for 30 Days, #30 05/30/24 Fluticasone Furoate-Vilanterol (Breo Ellipta 200-25 Mcg/INH) 1 Inh Inh, 1 INH IN DAILY, INHALER 04/05/24 Metoprolol Tartrate (Lopressor) 25 Mg Tb, 25 MG PO DAILY, TAB 04/05/24 Gabapentin (Gabapentin) 800 Mg Tab, 800 MG PO BID, TAB 04/05/24 Montelukast Sodium (MONTELUKAST SODIUM) 10 Mg Tab, 1 TAB PO DAILY for 30 Days, #30 04/05/24 Clopidogrel Bisulfate (CLOPIDOGREL) 75 Mg Tab, 1 TAB PO DAILY for 30 Days, #30 04/05/24 Glipizide (Glipizide) 5 Mg Tab, 5 MG PO DAILY for 90 Days, #90 04/05/24 Home Meds Home medications reviewed. Current Medications Current Medications Medications (Trade) Dose Ordered Sig/Jeanne Route PRN Reason Start Time Stop Time Status Last Admin Amiodarone HCl (Cordarone Tablet) 200 mg DAILY PO 09/07/24 10:00 Apixaban (Eliquis) 5 mg BID PO 09/07/24 10:00 Atorvastatin Calcium (Lipitor) 40 mg HS PO 09/07/24 22:00 Clopidogrel Bisulfate (Plavix) 75 mg DAILY PO 09/07/24 10:00 Melatonin (Melatonin) 5 mg HS PRN PO SHORTNESS OF BREATH 09/07/24 07:45 Metoprolol Tartrate (Lopressor Tablet) 25 mg DAILY PO 09/07/24 10:00 Montelukast Sodium (Singulair Tablet) 10 mg HS PO 09/07/24 22:00 Ondansetron HCl (Zofran) 4 mg Q4HP PRN IV NAUSEA / VOMITING 09/07/24 07:45 Docusate Sodium (Colace Capsule) 100 mg BIDPRN PRN PO FOR CONSTIPATION 09/07/24 07:45 Morphine Sulfate 2 mg Q4HPRN PRN IV SEVERE PAIN (7-10 PAIN SCALE) 09/07/24 07:45 Nitroglycerin (Ntrostat Sublingual) 0.4 mg Q5MINP PRN SL FOR CHEST PAIN 09/07/24 07:45 Furosemide (Lasix Injection) 20 mg BIDD IV 09/07/24 18:00 Famotidine (Pepcid Injection) 20 mg DAILY IV 09/08/24 10:00 Methylprednisolone Sodium Succinate (Solu Medrol) 40 mg Q8HR IV 09/07/24 14:00 Aspirin 81 mg DAILY PO 09/08/24 10:00 Lorazepam (Ativan Inj) 0.5 mg Q6HP PRN IV ANXIETY 09/07/24 07:45 Diagnostic Test (Pha) (Accu-Chek Comfort Curve T) 1 strip Q6HR 09/07/24 12:00 Insulin Human Regular (InsuLIN R) Q6HR SC 09/07/24 12:00 Dextrose 50 ml UD PRN IV Blood Sugar LESS THAN 60 09/07/24 07:45 Albuterol (Ventolin Medneb) 2.5 mg Q2HPRN PRN NEB SHORTNESS OF BREATH 09/07/24 07:45 Ipratropium [place] (Atrovent Medneb) 0.5 mg Q2HPRN PRN NEB SHORTNESS OF BREATH 09/07/24 07:45 Azithromycin 250 ml @ 125 mls/hr DAILY IV 09/07/24 10:00 Review of Systems Constitutional: No symptom reported Ears, Nose, & Throat: No symptom reported Eyes: No symptom reported Neurological: No symptoms reported Pulmonary/Respiratory: Shortness of breath, cough Cardiovascular: No symptom reported Gastrointestinal: No symptom reported Genitourinary: No symptom reported Musculoskeletal: No symptom reported Skin: No symptom reported Psychiatric: No symptom reported Endocrine: No symptom reported Hematologic/Lymphatic: No symptom reported Vital Signs Vital Signs Date Time Temp Pulse Resp B/P (MAP) Pulse Ox O2 Delivery O2 Flow Rate FiO2 09/07/24 08:41 117/69 09/07/24 07:15 95 Facial BiPAP Mask 45 09/07/24 07:15 98.7 21 100 4.0 98.7 Physical Exam General Appearance: Cooperative. Morbidly obese Pulmonary/Respiratory: Diminished bilateral lower lobes Cardiovascular/Chest: Regular rate and rhythm. Peripheral Pulses: 2+ Radial (R). 2+ Radial (L). 2+ Pedal (R). 2+ Pedal (L) Abdominal Exam: Normal bowel sounds. Ankle Exam: 1+ pitting edema Lower extremities: Right lower extremity 3+ pitting edema, left lower extremity 2+ pitting edema Neuro/Mental Status: A/OX4, coherent. Thoughts/Psych: Normal thought pattern. Appropriate mood and affect. Good judgment and insight. Appearance: No acute distress. Skin Exam: Normal inspection. Normal color. Warm and dry. Labs/Diagnostic Data Labs Test 09/07/24 08:57 09/07/24 07:10 09/07/24 06:23 09/07/24 03:37 Range/Units Blood Gas Specimen Type Arterial Blood Gas Sample Site Right brachial Blood Gas Patient Temperature 37.0 Arterial Blood Date Drawn [id number] Arterial Blood pH 7.444 7.350-7.450 Arterial Blood Partial Pressure CO2 41.9 32.0-45.0 mmHg Arterial Blood Partial Pressure O2 130.0 H 83.0-108.0 mmHg Arterial Blood HCO3 28.1 H 21.0-28.0 mmol/L Arterial Blood Oxygen Saturation 98.6 H 94.0-98.0 % Arterial Blood Base Excess 3.7 H -2.0-3.0 mmol/L Arterial Blood Oxyhemoglobin 97.5 94.0-98.0 % Arterial Blood Carboxyhemoglobin 0.2 L 0.5-1.5 % Arterial Blood Methemoglobin 0.9 0.0-1.5 % Raciel Test N/a Blood Gas Total Hemoglobin 9.70 L 12.0-16.0 g/dL Blood Gas Set Respiration Rate 14.0 Blood Gas Modality Mask - bipap Blood Gas Spontaneous Rate 29 FiO2 % 45.0 Blood Gas Spontaneous Tidal Volume 582 Blood Gas EPAP 5 Blood Gas IPAP 12 Troponin I High Sensitivity 39 *H </=34 ng/L Urine Color Light-yellow Yellow Urine Clarity Clear Clear Urine pH 6.5 5.0-9.0 Urine Specific [place] 1.017 1.001-1.035 Urine Protein Negative Negative Urine Ketones Negative Negative Urine Blood Negative Negative /uL Urine Nitrite Negative Negative Urine Bilirubin Negative Negative Urine Urobilinogen Normal Negative mg/dL Urine Leukocyte Esterase Negative Negative /uL Urine RBC <1 0 - 4 /hpf Urine Microscopic WBC < 1 0-5 /HPF Urine Squamous Epithelial Cells Few <5 /hpf Urine Bacteria None seen None Seen /hpf Urine Mucus Few None Seen Urine Glucose 2+ H Normal mg/dL White Blood Count 8.5 4.4-10.8 10^3/uL Red Blood Count 3.02 L 4.0-5.20 10^6/uL Hemoglobin 9.0 L 12.2-16.2 g/dL Hematocrit 28.0 L 36.0-46.0 % Mean Corpuscular Volume 92.6 80.0-100.0 fL Mean Corpuscular Hemoglobin 29.9 28.0-32.0 pg Mean Corpuscular Hemoglobin Concent 32.3 32.0-36.0 g/dL Red Cell Distribution Width 17.0 H 11.8-14.3 % Platelet Count 193 140-450 10^3/uL Mean Platelet Volume 9.2 6.9-10.8 fL Neutrophils (%) (Auto) 92.7 H 37.0-80.0 % Lymphocytes (%) (Auto) 3.1 L 10.0-50.0 % Monocytes (%) (Auto) 3.9 0.0-12.0 % Eosinophils (%) (Auto) 0.0 0.0-7.0 % Basophils (%) (Auto) 0.3 0.0-2.0 % Neutrophils # (Auto) 7.9 1.6-8.6 10 ^3/uL Lymphocytes # (Auto) 0.3 L 0.4-5.4 10 ^3/uL Monocytes # (Auto) 0.3 0-1.3 10 ^3/uL Eosinophils # (Auto) 0 0-0.8 10 ^3/uL Basophils # (Auto) 0 0-0.2 10 ^3/uL Nucleated Red Blood Cells 0.1 % Prothrombin Time 10.8 9.3-11.8 sec Prothrombin Time INR 1.02 0.9-1.15 Activated Partial Thromboplast Time 26.5 24.5-34.5 SEC Sodium Level 139 136-145 mmol/L Potassium Level 4.5 3.5-5.1 mmol/L Chloride Level 104 98-107 mmol/L Carbon Dioxide Level 23 20-31 mmol/L Anion Gap 12 5-15 Blood Urea Nitrogen 20 9-23 mg/dL Creatinine 1.11 H 0.550-1.02 mg/dL Glomerular Filtration Rate Calc 55 >90 mL/min BUN/Creatinine Ratio 18.0 10.0-20.0 Serum Glucose 283 H 74-106 mg/dL Calcium Level 9.5 8.7-10.4 mg/dL Total Bilirubin 0.9 0.2-1.0 mg/dL Aspartate Amino Transferase (AST) 18 13-40 U/L Alanine Aminotransferase (ALT) 17 7-40 U/L Alkaline Phosphatase 68 46-116 U/L B-Type Natriuretic Peptide 679.10 0-100 pg/mL Total Protein 6.2 5.7-8.2 g/dL Albumin 4.1 3.2-4.8 g/dL Assessment Acute on chronic decompensated HFrEF, NYHA class III Acute hypoxic respiratory failure Pneumonia NSTEMI, likely type II secondary to above Coronary artery disease status post multiple PTCAs x 4 JOE (on ASA) Paroxysmal atrial fibrillation (on amiodarone and Eliquis) Hypertension Dyslipidemia COPD with home O2 History of tobacco use Type 2 diabetes mellitus Morbid obesity Plan/Recommendation We will continue with the following plan/recommendations (Dr. Moran): * Transthoracic echocardiogram from 05/29/2024 reveals EF 25-30% * Initiate guideline directed medical therapy for CHF as tolerated * Consider MRA (spironolactone) with stable potassium * Strict intake and output, daily weights, maintain fluid restrictions * Continue single antiplatelet therapy and lipid-lowering agent * Aggressive diuresis as tolerated * [id number] VASc score: 6 points, HAS-BLED: 1 point * Continue home dose beta-martha for rate control * Continue antiarrhythmic agent oral amiodarone * Continue NOAC therapy, Eliquis * Monitor and replete electrolytes as needed * Close Cardiac surveillance Patient see and examined at bedside with Dr. Moran. Thank you for allowing us to care for this patient. Please call with any questions or concerns. Critical care time spent: 44 minutes This medical document was created using an electronic medical record system with voice recognition software and computerized dictation system. Although this document has been carefully reviewed, there might still be some phonetic and typographical errors. Occasional wrong-word or ``sound-alike substitutions may have occurred due to the inherent limitations of voice recognition software. These areas are purely typographical due to imperfections of the software programs and do not reflect any compromise in the patient's medical care. Please read the chart carefully and recognize, using context, where these substitutions have occurred. Plan discussed with: Patient, Daughter NYHA Physical activity limitations: Class3(Marked) ordinary (activity causes symtoms) Date of Service: Sep 07, 2024 Billing Provider: ARMANI GUADARRAMA Cardiology Common Codes: 85496-AJBIHVR INP/OBS CARE (High) Cardiology Consultation Codes: [id number] CONSULT <45MIN ARMANI GUADARRAMA Sep 07, 2024 10:19
[2024-09-07] MEDS: AMIODARONE HCL 200 MG TAB PO SCH (11:05)
[2024-09-07] MEDS: CLOPIDOGREL BISULFATE 75 MG TAB PO SCH (11:05)
[2024-09-07] MEDS: APIXABAN 5 MG TAB PO SCH (11:05)
[2024-09-07] MEDS: AZITHROMYCIN 500MG/ 250ML 250 ML IV SCH (11:06)
[2024-09-07] MEDS: METOPROLOL TARTRATE 25 MG TAB PO SCH (11:14)
[2024-09-07] MEDS: ACCU-CHEK COMFORT CURVE STRIP VI SCH (12:00)
[2024-09-07] MEDS: ACETAMINOPHEN 500 MG TAB or CAP PO ONE (12:01)
[2024-09-07] MEDS: InsuLIN REG 1unit/0.01ml Soln (100units/ml) SC SCH (12:59)
[2024-09-07] MEDS: methylPREDNISolone SOD SUCC 125 MG/2 ML VL IV SCH (12:59)
[2024-09-07] MEDS: IPRATROPIUM BROM 0.5 MG/2.5ML INH SOL NEB PRN (13:07)
[2024-09-07] MEDS: ALBUTEROL SULF 2.5 MG/0.5ML(0.5%) NEB SOLN NEB PRN (13:07)
[2024-09-07 13:32] LABS: Triglycerides 94 mg/dL (< 150)
[2024-09-07 13:33] LABS: Cholesterol 115 mg/dL (< 200); LDL Cholesterol 83 mg/dL (< 100)
[2024-09-07 13:36] LABS: HDL Cholesterol 23 mg/dL (40-59)
[2024-09-07] MEDS: LORazepam 2MG/ML-1ML VIAL IV PRN (13:55)
[2024-09-07] MEDS: FUROSEMIDE 20 MG/2 ML VIAL IV SCH (15:59)
--- NOTE | 2024-09-07 19:06 | DVHINCON2 ---
Date Seen: Sep 07, 2024 Referring Physician JORGE A Sánchez Reason for Consultation Acute CHF exacerbation with elevated troponin History of Present Illness This is a 63-year-old female with a past medical history of congestive heart failure, paroxysmal atrial fibrillation (on amiodarone and Eliquis therapy), coronary artery disease status post multiple PTCAs X 4 JOE (on ASA), hypertension, dyslipidemia, COPD with home oxygen, type 2 diabetes mellitus, and morbid obesity who presents to the emergency room with a complaint of shortness of breath for three days and cough for two days. [place] [facility] [place] now comes to this facility for further evaluation of worsening shortness of breath. Cardiology has been consulted at this time for CHF exacerbation as well as elevated troponin levels. Initial twelve lead electrocardiogram reveals normal sinus rhythm with first-degree AV block left ventricular hypertrophy and artifact seen in multiple leads. Initial troponin level of 29ng/L with flat trend thereafter. Initial BNP level of 679.10pg/mL. Chest x-ray showed moderate interval progression in diffuse increased prominence of the pulmonary vasculature. Stable cardiomegaly. Patient currently follows up with me in the outpatient setting. The patient reports that she was recently admitted at [facility] where she was hospitalized for 10 days. During that admission, she reports undergoing a coronary angiogram in which no catheter based intervention was necessary. Family History: Cardiovascular disease G8 MOTHER Chronic obstructive pulmonary disease G8 MOTHER Diabetes mellitus G8 MOTHER Hypertension G8 MOTHER 19 CHILD, Name: Izabel Tucker Allergies: Coded Allergies: NO KNOWN ALLERGIES (Unverified , 04/04/24) Home Meds Active Scripts Apixaban Base (ELIQUIS) 5 Mg Tab, 5 MG PO BID PRN for 30 Days, #60 TAB Prov:ELY HOUSE 07/31/24 Prednisone (Prednisone) 20 Mg Tab, 40 MG PO DAILY for 11 Days, #15 MG 40 mg for first 5 days, followed by 20 mg for next 3 days, followed by 10 mg for next 4 days Prov:ELY HOUSE 07/31/24 Melatonin (Melatonin) 5 Mg Tab, 5 MG PO HS PRN for 30 Days, #30 TAB Prov:ELY HOUSE 07/31/24 Doxycycline Monohydrate (Doxycycline Monohydrate) 100 Mg Tab, 100 MG PO Q12HR for 5 Days, #10 TAB Prov:ELY HOUSE 07/31/24 Reported Medications Ipratropium-Albuterol (COMBIVENT RESPIMAT) Respimat Aer, 1 AER IN UD for 30 Days, #360 07/31/24 Amiodarone HCl (Amiodarone HCl) 200 Mg Tab, 1 TAB PO DAILY for 30 Days, #30 07/31/24 Atorvastatin Calcium (Lipitor) 20 Mg Tab, 2 TAB PO DAILY for 30 Days, #60 07/31/24 Metformin Hydrochloride (Metformin Hcl Er) 500 Mg Tab, 1 TAB PO BID for 90 Days, #180 07/31/24 Famotidine (Famotidine) 20 Mg Tab, 1 TAB PO DAILY PRN for GERD for 30 Days, #30 05/30/24 Albuterol Sulfate (Albuterol Sulfate Hfa) 108 Mcg/Act Aer, 1-2 PUFF IN Q6HR PRN for 50 Days, #18 05/30/24 Benazepril Hcl (Benazepril Hcl) 20 Mg Tab, 1 TAB PO DAILY for 90 Days, #90 05/30/24 Furosemide (Furosemide) 20 Mg Tab, 1 TAB PO DAILY for 30 Days, #30 05/30/24 Fluticasone Furoate-Vilanterol (Breo Ellipta 200-25 Mcg/INH) 1 Inh Inh, 1 INH IN DAILY, INHALER 04/05/24 Metoprolol Tartrate (Lopressor) 25 Mg Tb, 25 MG PO DAILY, TAB 04/05/24 Gabapentin (Gabapentin) 800 Mg Tab, 800 MG PO BID, TAB 04/05/24 Montelukast Sodium (MONTELUKAST SODIUM) 10 Mg Tab, 1 TAB PO DAILY for 30 Days, #30 04/05/24 Clopidogrel Bisulfate (CLOPIDOGREL) 75 Mg Tab, 1 TAB PO DAILY for 30 Days, #30 04/05/24 Glipizide (Glipizide) 5 Mg Tab, 5 MG PO DAILY for 90 Days, #90 04/05/24 Current Medications Current Medications Medications (Trade) Dose Ordered Sig/Jeanne Route PRN Reason Start Time Stop Time Status Last Admin Amiodarone HCl (Cordarone Tablet) 200 mg DAILY PO 09/07/24 10:00 09/07/24 11:05 Apixaban (Eliquis) 5 mg BID PO 09/07/24 10:00 09/07/24 11:05 Atorvastatin Calcium (Lipitor) 40 mg HS PO 09/07/24 22:00 Clopidogrel Bisulfate (Plavix) 75 mg DAILY PO 09/07/24 10:00 09/07/24 11:05 Melatonin (Melatonin) 5 mg HS PRN PO SHORTNESS OF BREATH 09/07/24 07:45 Metoprolol Tartrate (Lopressor Tablet) 25 mg DAILY PO 09/07/24 10:00 09/07/24 12:35 DC 09/07/24 11:14 Montelukast Sodium (Singulair Tablet) 10 mg HS PO 09/07/24 22:00 Ondansetron HCl (Zofran) 4 mg Q4HP PRN IV NAUSEA / VOMITING 09/07/24 07:45 Docusate Sodium (Colace Capsule) 100 mg BIDPRN PRN PO FOR CONSTIPATION 09/07/24 07:45 Morphine Sulfate 2 mg Q4HPRN PRN IV SEVERE PAIN (7-10 PAIN SCALE) 09/07/24 07:45 Nitroglycerin (Ntrostat Sublingual) 0.4 mg Q5MINP PRN SL FOR CHEST PAIN 09/07/24 07:45 Furosemide (Lasix Injection) 20 mg BIDD IV 09/07/24 18:00 Famotidine (Pepcid Injection) 20 mg DAILY IV 09/08/24 10:00 Methylprednisolone Sodium Succinate (Solu Medrol) 40 mg Q8HR IV 09/07/24 14:00 09/07/24 12:59 Aspirin 81 mg DAILY PO 09/08/24 10:00 09/07/24 12:28 DC Lorazepam (Ativan Inj) 0.5 mg Q6HP PRN IV ANXIETY 09/07/24 07:45 Diagnostic Test (Pha) (Accu-Chek Comfort Curve T) 1 strip Q6HR 09/07/24 12:00 09/07/24 12:00 Insulin Human Regular (InsuLIN R) Q6HR SC 09/07/24 12:00 09/07/24 12:59 Dextrose 50 ml UD PRN IV Blood Sugar LESS THAN 60 09/07/24 07:45 Albuterol (Ventolin Medneb) 2.5 mg Q2HPRN PRN NEB SHORTNESS OF BREATH 09/07/24 07:45 09/07/24 13:07 Ipratropium [place] (Atrovent Medneb) 0.5 mg Q2HPRN PRN NEB SHORTNESS OF BREATH 09/07/24 07:45 09/07/24 13:07 Azithromycin 250 ml @ 125 mls/hr DAILY IV 09/07/24 10:00 09/07/24 11:06 Metoprolol Succinate (Toprol Xl) 25 mg DAILY PO 09/08/24 10:00 Empaglifozin (Jardiance) 10 mg DAILY PO 09/08/24 10:00 Sacubitril/ Valsartan (Entresto 24-26 Mg tab) 1 tab BID PO 09/07/24 22:00 Review of Systems Constitutional: No symptom reported Ears, Nose, & Throat: No symptom reported Eyes: No symptom reported Neurological: No symptoms reported Pulmonary/Respiratory: Shortness of breath, cough Cardiovascular: No symptom reported Gastrointestinal: No symptom reported Genitourinary: No symptom reported Musculoskeletal: No symptom reported Skin: No symptom reported Psychiatric: No symptom reported Endocrine: No symptom reported Hematologic/Lymphatic: No symptom reported Vital Signs Vital Signs Date Time Temp Pulse Resp B/P (MAP) Pulse Ox O2 Delivery O2 Flow Rate FiO2 09/07/24 13:15 80 19 100 09/07/24 13:07 Nasal Cannula 4.0 09/07/24 13:07 36 09/07/24 13:00 98.8 86/47 (60) 98.8 Physical Exam GENERAL: Alert and oriented x 3. No acute distress. Morbidly obese. EYES: PERRL, EOMI. Anicteric. HENT: Moist mucous membranes. LUNGS: Diminished breath sounds. CARDIOVASCULAR: Regular rate and rhythm. ABDOMEN: Soft, nontender and nondistended. EXTREMITIES: Right lower extremity 3+ pitting edema, left lower extremity 2+ pitting edema. NEUROLOGIC: No focal neurological deficits. SKIN: Warm, dry. Labs/Diagnostic Data Labs Test 09/07/24 12:41 09/07/24 08:57 09/07/24 07:10 09/07/24 06:23 Range/Units POC Glucose 155 H 70-106 mg/dl Blood Gas Specimen Type Arterial Blood Gas Sample Site Right brachial Blood Gas Patient Temperature 37.0 Arterial Blood Date Drawn [id number] Arterial Blood pH 7.444 7.350-7.450 Arterial Blood Partial Pressure CO2 41.9 32.0-45.0 mmHg Arterial Blood Partial Pressure O2 130.0 H 83.0-108.0 mmHg Arterial Blood HCO3 28.1 H 21.0-28.0 mmol/L Arterial Blood Oxygen Saturation 98.6 H 94.0-98.0 % Arterial Blood Base Excess 3.7 H -2.0-3.0 mmol/L Arterial Blood Oxyhemoglobin 97.5 94.0-98.0 % Arterial Blood Carboxyhemoglobin 0.2 L 0.5-1.5 % Arterial Blood Methemoglobin 0.9 0.0-1.5 % Raciel Test N/a Blood Gas Total Hemoglobin 9.70 L 12.0-16.0 g/dL Blood Gas Set Respiration Rate 14.0 Blood Gas Modality Mask - bipap Blood Gas Spontaneous Rate 29 FiO2 % 45.0 Blood Gas Spontaneous Tidal Volume 582 Blood Gas EPAP 5 Blood Gas IPAP 12 Troponin I High Sensitivity 39 *H </=34 ng/L Urine Color Light-yellow Yellow Urine Clarity Clear Clear Urine pH 6.5 5.0-9.0 Urine Specific [place] 1.017 1.001-1.035 Urine Protein Negative Negative Urine Ketones Negative Negative Urine Blood Negative Negative /uL Urine Nitrite Negative Negative Urine Bilirubin Negative Negative Urine Urobilinogen Normal Negative mg/dL Urine Leukocyte Esterase Negative Negative /uL Urine RBC <1 0 - 4 /hpf Urine Microscopic WBC < 1 0-5 /HPF Urine Squamous Epithelial Cells Few <5 /hpf Urine Bacteria None seen None Seen /hpf Urine Mucus Few None Seen Urine Glucose 2+ H Normal mg/dL Test 09/07/24 03:37 Range/Units White Blood Count 8.5 4.4-10.8 10^3/uL Red Blood Count 3.02 L 4.0-5.20 10^6/uL Hemoglobin 9.0 L 12.2-16.2 g/dL Hematocrit 28.0 L 36.0-46.0 % Mean Corpuscular Volume 92.6 80.0-100.0 fL Mean Corpuscular Hemoglobin 29.9 28.0-32.0 pg Mean Corpuscular Hemoglobin Concent 32.3 32.0-36.0 g/dL Red Cell Distribution Width 17.0 H 11.8-14.3 % Platelet Count 193 140-450 10^3/uL Mean Platelet Volume 9.2 6.9-10.8 fL Neutrophils (%) (Auto) 92.7 H 37.0-80.0 % Lymphocytes (%) (Auto) 3.1 L 10.0-50.0 % Monocytes (%) (Auto) 3.9 0.0-12.0 % Eosinophils (%) (Auto) 0.0 0.0-7.0 % Basophils (%) (Auto) 0.3 0.0-2.0 % Neutrophils # (Auto) 7.9 1.6-8.6 10 ^3/uL Lymphocytes # (Auto) 0.3 L 0.4-5.4 10 ^3/uL Monocytes # (Auto) 0.3 0-1.3 10 ^3/uL Eosinophils # (Auto) 0 0-0.8 10 ^3/uL Basophils # (Auto) 0 0-0.2 10 ^3/uL Nucleated Red Blood Cells 0.1 % Prothrombin Time 10.8 9.3-11.8 sec Prothrombin Time INR 1.02 0.9-1.15 Activated Partial Thromboplast Time 26.5 24.5-34.5 SEC Sodium Level 139 136-145 mmol/L Potassium Level 4.5 3.5-5.1 mmol/L Chloride Level 104 98-107 mmol/L Carbon Dioxide Level 23 20-31 mmol/L Anion Gap 12 5-15 Blood Urea Nitrogen 20 9-23 mg/dL Creatinine 1.11 H 0.550-1.02 mg/dL Glomerular Filtration Rate Calc 55 >90 mL/min BUN/Creatinine Ratio 18.0 10.0-20.0 Serum Glucose 283 H 74-106 mg/dL Calcium Level 9.5 8.7-10.4 mg/dL Total Bilirubin 0.9 0.2-1.0 mg/dL Aspartate Amino Transferase (AST) 18 13-40 U/L Alanine Aminotransferase (ALT) 17 7-40 U/L Alkaline Phosphatase 68 46-116 U/L B-Type Natriuretic Peptide 679.10 0-100 pg/mL Total Protein 6.2 5.7-8.2 g/dL Albumin 4.1 3.2-4.8 g/dL Assessment Acute on chronic decompensated HFrEF, NYHA class III. Acute hypoxic respiratory failure. Pneumonia. NSTEMI, likely type II secondary to above. Coronary artery disease status post multiple PTCAs x 4 JOE (on ASA). Paroxysmal atrial fibrillation (on amiodarone and Eliquis). Hypertension. Dyslipidemia. COPD with home O2. History of tobacco use. Type 2 diabetes mellitus. Morbid obesity. Plan/Recommendation I agree with your ongoing assessment and care of plan. Patient has been seen by Izabel Knox NP on my behalf, her and I discussed the plan with the patient. Transthoracic echocardiogram from 05/29/2024 reveals EF 25-30%. Initiate guideline directed medical therapy for CHF as tolerated. Consider MRA (spironolactone) with stable potassium. Strict intake and output, daily weights, maintain fluid restrictions. Continue single antiplatelet therapy and lipid-lowering agent. Aggressive diuresis as tolerated. [id number] VASc score: 6 points, HAS-BLED: 1 point. Continue home dose beta-martha for rate control. Continue antiarrhythmic agent oral amiodarone. Continue NOAC therapy, Eliquis. Monitor and replete electrolytes as needed. Close Cardiac surveillance. Additional plan as per the hospital course. Plan discussed with: Patient NYHA Physical activity limitations: Class3(Marked) ordinary Date of Service: Sep 07, 2024 Billing Provider: HUMBLE MCCAIN MD Cardiology Common Codes: [id number] INP/OBS CARE (High) Cardiology Consultation Codes: [id number] CONSULT <45MIN HUMBLE MCCAIN MD Sep 07, 2024 13:25
[2024-09-07] MEDS: ATORVASTATIN 20 MG TAB PO SCH (21:38)
[2024-09-07] MEDS: PANTOPRAZOLE 40 MG/10 ML VIAL INJ IV SCH (21:38)
[2024-09-07] MEDS: MONTELUKAST SODIUM 10 MG TAB PO SCH (21:39)
[2024-09-07] MEDS: SACUBITRIL-VALSARTAN 24mg/26mg TAB PO SCH (21:42)
[2024-09-07] MEDS: MELATONIN 5 MG TAB PO PRN (21:52)
[2024-09-08] VITALS (30 sets, daily range): BP systolic 95–155; BP diastolic 38–59; PULSE 72–93; RESP 18–22; TEMP 97.2–98.8; O2SAT 93–100
[2024-09-08 05:52] LABS: Basophils # (auto) 0 10 ^3/uL (0-0.2); Basophils % (auto) 0.3 % (0.0-2.0); Eosinophils # (auto) 0 10 ^3/uL (0-0.8); Hematocrit 27.9 % (36.0-46.0); Hemoglobin 9.1 g/dL (12.2-16.2); Lymphocytes # (auto) 0.3 10 ^3/uL (0.4-5.4); Mean Corpuscular Hemoglobin 29.2 pg (28.0-32.0); Mean Corpuscular Hgb Conc. 32.5 g/dL (32.0-36.0); Mean Corpuscular Volume 89.9 fL (80.0-100.0); Monocytes # (auto) 0.3 10 ^3/uL (0-1.3); Neutrophils # (auto) 4.9 10 ^3/uL (1.6-8.6); Neutrophils % (auto) 88.7 % (37.0-80.0); Platelet Count (auto) 171 10^3/uL (140-450); Red Cell Distribution Width 16.6 % (11.8-14.3); White Blood Cell 5.5 10^3/uL (4.4-10.8)
[2024-09-08 06:09] LABS: Alanine Aminotransferase 16 U/L (7-40); Albumin 4.4 g/dL (3.2-4.8); Alkaline Phosphatase 69 U/L (46-116); Anion Gap 10 (5-15); Aspartate Aminotransferase 16 U/L (13-40); BUN/Creatinine Ratio 25.8 (10.0-20.0); Calcium 9.7 mg/dL (8.7-10.4); Carbon Dioxide 28 mmol/L (20-31); Chloride 101 mmol/L (98-107); Magnesium 2.2 mg/dL (1.6-2.6); Potassium 3.8 mmol/L (3.5-5.1); Sodium 139 mmol/L (136-145); Total Protein 6.9 g/dL (5.7-8.2)
[2024-09-08 06:10] LABS: Blood Urea Nitrogen 32 mg/dL (9-23); Glucose 250 mg/dL (74-106)
--- NOTE | 2024-09-08 06:43 | DVH ---
CHEST RADIOGRAPH Indication: SOB Technique: Single frontal view of the chest was obtained COMPARISON: XY CHEST PORTABLE on DOS: 09/07/24, XY CHEST PORTABLE on DOS: 07/29/24, XY CHEST PORTABLE o n DOS: 07/28/24, XY CHEST XRAY 1 VIEW on DOS: 07/28/24, XY CHEST PORTABLE on DOS: 07/27/24 FINDINGS: Lines and Tubes: None Lungs: Slightly diminished diffuse prominence of the pulmonary vasculature when compared to the prior exam. No evidence of focal consolidation. Pleura: No effusion. No pneumothorax. Cardiomediastinal contours: Cardiomegaly Bones: Unremarkable IMPRESSION: 1. Slight improvement in diffuse increased prominence of the pulmonary vasculature. 2. Cardiomegaly.
[2024-09-08] MEDS ORDERED: ASPirin 81 mg TAB PO SCH (10:00)
--- NOTE | 2024-09-08 10:07 | DVHPN2 ---
Progress Note - Dictate Date Seen: Sep 08, 2024 Has the PT tested + for MRSA If YES, has PT been informed?: No Medical Necessity Reason Pt with a Central, PICC or Fol: No vital signs Vital Sign Date Time Temp Pulse Resp B/P (MAP) Pulse Ox O2 Delivery O2 Flow Rate FiO2 09/08/24 08:47 91 09/08/24 06:24 145/47 09/08/24 06:00 97 09/08/24 04:00 98.8 20 98.8 09/08/24 04:00 Facial BiPAP Mask 45 09/07/24 20:00 4 Total Intake and Output 09/07/24 09/07/24 09/08/24 15:00 23:00 07:00 Intake Total 250 ml 50 ml Output Total 1800 ml 2475 ml 400 ml Balance -1550 ml -2475 ml -350 ml medications Current Medications Medications Dose Ordered Sig/Jeanne Route Start Time Stop Time Status Last Admin Dose Admin Amiodarone HCl 200 mg DAILY PO 09/07/24 10:00 09/07/24 11:05 200 MG Apixaban 5 mg BID PO 09/07/24 10:00 09/07/24 21:42 5 MG Atorvastatin Calcium 40 mg HS PO 09/07/24 22:00 09/07/24 21:38 40 MG Clopidogrel Bisulfate 75 mg DAILY PO 09/07/24 10:00 09/07/24 11:05 75 MG Melatonin 5 mg HS PRN PO 09/07/24 07:45 Montelukast Sodium 10 mg HS PO 09/07/24 22:00 09/07/24 21:39 10 MG Ondansetron HCl 4 mg Q4HP PRN IV 09/07/24 07:45 Docusate Sodium 100 mg BIDPRN PRN PO 09/07/24 07:45 Morphine Sulfate 2 mg Q4HPRN PRN IV 09/07/24 07:45 Nitroglycerin 0.4 mg Q5MINP PRN SL 09/07/24 07:45 Furosemide 20 mg BIDD IV 09/07/24 18:00 09/08/24 06:24 20 MG Famotidine 20 mg DAILY IV 09/08/24 10:00 Methylprednisolone Sodium Succinate 40 mg Q8HR IV 09/07/24 14:00 09/08/24 06:24 40 MG Lorazepam 0.5 mg Q6HP PRN IV 09/07/24 07:45 09/07/24 13:55 0.5 MG Diagnostic Test (Pha) 1 strip Q6HR 09/07/24 12:00 09/08/24 06:25 1 STRIP Insulin Human Regular Q6HR SC 09/07/24 12:00 09/08/24 06:25 4 UNITS Dextrose 50 ml UD PRN IV 09/07/24 07:45 Albuterol 2.5 mg Q2HPRN PRN NEB 09/07/24 07:45 09/08/24 09:34 2.5 MG Ipratropium [place] 0.5 mg Q2HPRN PRN NEB 09/07/24 07:45 09/08/24 09:34 0.5 MG Azithromycin 250 ml @ 125 mls/hr DAILY IV 09/07/24 10:00 09/07/24 11:06 125 MLS/HR Metoprolol Succinate 25 mg DAILY PO 09/08/24 10:00 Empaglifozin 10 mg DAILY PO 09/08/24 10:00 Sacubitril/ Valsartan 1 tab BID PO 09/07/24 22:00 Pantoprazole Sodium 40 mg BID IV 09/07/24 22:00 09/07/24 21:38 40 MG laboratory and microbiology Laboratory Tests 09/08/24 04:21 Test 09/08/24 04:21 Range/Units Serum Glucose 250 H 74-106 mg/dL Assessment/Plan acute exacerbation of copd pneumonia hypoxemic resp failre fluid retention events none management continue supportive care iv steroids transition to prednisone prior to dc with taper diurese monitor labs, lytes replace abx azithromycin dvt proph Plan discussed with: Patient RONALD MEJIA MD Sep 08, 2024 10:07
[2024-09-08] MEDS: METOPROLOL SUCCINATE XL 50 MG TAB PO SCH (11:36)
[2024-09-08] MEDS: EMPAGLIFLOZIN 10 MG TAB PO SCH (11:37)
[2024-09-08] MEDS: FAMOTIDINE (10MG/ML) 2ML VL IV SCH (11:38)
--- NOTE | 2024-09-08 11:56 | DVHPN2 ---
Subjective The patient is seen and examined at bedside. Shortness for breath improved. Reviewed: Care Plan, H&P, Labs, Medications, Previous Orders, Radiology Changes from previous H/P or p: No Changes Eyes: No Pain, No Vision change, No Conjunctivae inflammation, No Eyelid inflammation, No Other, No Redness ENT: No Ear pain, No Ear discharge, No Nose pain, No Nose discharge, No Nose congestion, No Mouth pain, No Mouth swelling, No Throat pain, No Throat swelling, No Other Cardiovascular: No Chest Pain, No Palpitations, No Orthopnea, No Paroxysmal Noc. Dyspnea, No Edema, No Lt Headedness, No Other Respiratory: No Cough, No Dry; Shortness of breath, SOB with excertion; No Wheezing, No Hemoptysis, No Pleuritic Pain, No Sputum, No Other Gastrointestinal: No Nausea, No Vomiting, No Abdominal Pain, No Diarrhea, No Constipation, No Melena, No Hematochezia, No Other Genitourinary: No Dysuria, No Frequency, No Incontinence, No Hematuria, No Retention, No Other Musculoskeletal: No other, No neck pain, No shoulder pain, No arm pain, No back pain, No hand pain, No leg pain, No foot pain Skin: No Rash, No Lesions, No Jaundice, No Bruising, No Other Objective Vitals Vital Signs Date Time Temp Pulse Resp B/P (MAP) Pulse Ox O2 Delivery O2 Flow Rate FiO2 09/08/24 11:36 84 148/46 09/08/24 09:39 18 100 09/08/24 04:00 98.8 98.8 09/08/24 04:00 Facial BiPAP Mask 45 09/07/24 20:00 4 Intake/Output Intake and Output 09/08/24 07:00 Intake Total 300 ml Output Total 4675 ml Balance -4375 ml Intake Oral 50 ml IV Total 250 ml Output Urine Total 4675 ml # Bowel Movements 1 General Appearance: Alert, Cooperative, No acute distress HEENT: Atraumatic, PERRLA, EOMI, Mucous membr. moist/pink Neck: Supple Lungs: Clear to auscultation, Normal air movement Cardiovascular: Regular rate, Normal S1, Normal S2, No murmurs, Gallops, Rubs Abdomen: Normal bowel sounds, Soft, No tenderness Neuro: Cranial nerves 3-12 NL Psych/Mental Status: Mental status NL Medications Current Medications Medications Dose Ordered Sig/Jeanne Route Start Time Stop Time Status Last Admin Dose Admin Amiodarone HCl 200 mg DAILY PO 09/07/24 10:00 09/08/24 11:37 200 MG Apixaban 5 mg BID PO 09/07/24 10:00 09/08/24 11:36 5 MG Atorvastatin Calcium 40 mg HS PO 09/07/24 22:00 09/07/24 21:38 40 MG Clopidogrel Bisulfate 75 mg DAILY PO 09/07/24 10:00 09/07/24 11:05 75 MG Melatonin 5 mg HS PRN PO 09/07/24 07:45 Montelukast Sodium 10 mg HS PO 09/07/24 22:00 09/07/24 21:39 10 MG Ondansetron HCl 4 mg Q4HP PRN IV 09/07/24 07:45 Docusate Sodium 100 mg BIDPRN PRN PO 09/07/24 07:45 Morphine Sulfate 2 mg Q4HPRN PRN IV 09/07/24 07:45 Nitroglycerin 0.4 mg Q5MINP PRN SL 09/07/24 07:45 Furosemide 20 mg BIDD IV 09/07/24 18:00 09/08/24 06:24 20 MG Famotidine 20 mg DAILY IV 09/08/24 10:00 09/08/24 11:38 20 MG Methylprednisolone Sodium Succinate 40 mg Q8HR IV 09/07/24 14:00 09/08/24 06:24 40 MG Lorazepam 0.5 mg Q6HP PRN IV 09/07/24 07:45 09/07/24 13:55 0.5 MG Diagnostic Test (Pha) 1 strip Q6HR 09/07/24 12:00 09/08/24 06:25 1 STRIP Insulin Human Regular Q6HR SC 09/07/24 12:00 09/08/24 06:25 4 UNITS Dextrose 50 ml UD PRN IV 09/07/24 07:45 Albuterol 2.5 mg Q2HPRN PRN NEB 09/07/24 07:45 09/08/24 09:34 2.5 MG Ipratropium [place] 0.5 mg Q2HPRN PRN NEB 09/07/24 07:45 09/08/24 09:34 0.5 MG Azithromycin 250 ml @ 125 mls/hr DAILY IV 09/07/24 10:00 09/08/24 11:35 125 MLS/HR Metoprolol Succinate 25 mg DAILY PO 09/08/24 10:00 09/08/24 11:36 25 MG Empaglifozin 10 mg DAILY PO 09/08/24 10:00 09/08/24 11:37 10 MG Sacubitril/ Valsartan 1 tab BID PO 09/07/24 22:00 09/08/24 11:36 1 TAB Pantoprazole Sodium 40 mg BID IV 09/07/24 22:00 09/08/24 11:35 40 MG Laboratory Results Laboratory Tests 09/08/24 04:21 Chemistry Test 09/08/24 04:21 Albumin 4.4 g/dL (3.2-4.8) Calcium Level 9.7 mg/dL (8.7-10.4) Magnesium Level 2.2 mg/dL (1.6-2.6) Total Protein 6.9 g/dL (5.7-8.2) LFT Test 09/08/24 04:21 Alanine Aminotransferase (ALT) 16 U/L (7-40) Alkaline Phosphatase 69 U/L (46-116) Aspartate Amino Transferase (AST) 16 U/L (13-40) Total Bilirubin 1.0 mg/dL (0.2-1.0) Urinalysis Test 09/07/24 06:23 Urine Color Light-yellow (Yellow) Urine Clarity Clear (Clear) Urine pH 6.5 (5.0-9.0) Urine Specific [place] 1.017 (1.001-1.035) Urine Protein Negative (Negative) Urine Ketones Negative (Negative) Urine Blood Negative /uL (Negative) Urine Nitrite Negative (Negative) Urine Bilirubin Negative (Negative) Urine Urobilinogen Normal mg/dL (Negative) Urine Leukocyte Esterase Negative /uL (Negative) Urine RBC <1 /hpf (0 - 4) Urine Microscopic WBC < 1 /HPF (0-5) Urine Squamous Epithelial Cells Few /hpf (<5) Urine Bacteria None seen /hpf (None Seen) Urine Mucus Few (None Seen) Urine Glucose 2+ mg/dL (Normal) H Labs and/or images reviewed: Labs reviewed by me Assessment/Plan Assessment/Plan Acute on Chronic hypoxic Respiratory Failure CHF & COPD Exacerbation Atrial Fibrillation CAD Diabetes Mellitus type 2 uncontrolled Systolic CHF with exacerbation (EF 25-30%) Hyperlipidemia COPD on home O2 4l nc Anemia Pneumonia (recent) hx of intubation x2 last 07/2024 Continuing current management. Downgrade the patient to telemetry. Continuing with BiPAP as needed. Appreciate Employment Coordinator input. Continuing sliding scale insulin. Continuing with Eliquis. Continuing with IV Lasix. Continuing with nebulizer. Continuing with Solu-Medrol. Continuing with oxygen titrate to keep saturation oxygen above 92%. We will empirically start IV antibiotic with Rocephin and Zithromax. This medical document was created using an electronic medical record system with [employer] computerized dictation system. Although this document has been carefully reviewed, there may still be some phonetic and typographical errors. These areas are purely typographical due to imperfections of the software programs, and do not reflect any compromise in the patient's medical care. Plan discussed with: Patient My Orders Orders - SHRUTI DAVID MD Procedure Category Date Status Time Cardiac DIET 09/07/24 Transmitted Diet-2gna,Lofat,Lochol Dinner Pantoprazole PHA 09/07/24 In Process (Protonix) 22:00 Chest Portable XY 09/08/24 Resulted 04:00 Date of Service: Sep 08, 2024 Billing Provider: SHRUTI DAVID MD Common Visit Codes: [id number] INP/OBS CARE(HIGH) SHRUTI DAVID MD Sep 08, 2024 11:55
[2024-09-08] MEDS: methylPREDNISolone SOD SUCC 40 MG/ML VL IV SCH (21:25)
[2024-09-08] MEDS: ONDANSETRON HCL 4 MG/2 ML VIAL IV PRN (21:25)
[2024-09-08] MEDS: MORPHINE SULFATE INJ 2 MG/ml SYRG IV PRN (21:27)
--- NOTE | 2024-09-08 23:42 | DVHPN2 ---
Progress Note - Dictate Date Seen: Sep 08, 2024 Has the PT tested + for MRSA If YES, has PT been informed?: No Medical Necessity Reason Pt with a Central, PICC or Fol: No Subjective Patient was seen and evaluated in follow up. Patient is complaining of shortness of breath. She is on 4 LPM NC. HGB 9.1, HCT 27.9, BUN 32, YARD DRIVER 1.24, GLUC 202. MRSA is negative. Telemetry reviewed. vital signs Vital Sign Date Time Temp Pulse Resp B/P (MAP) Pulse Ox O2 Delivery O2 Flow Rate FiO2 09/08/24 20:28 Nasal Cannula* 4 36 09/08/24 18:28 156/58 09/08/24 15:21 87 18 97 09/08/24 12:00 98.6 98.6 Total Intake and Output 09/07/24 09/07/24 09/08/24 15:00 23:00 07:00 Intake Total 250 ml 50 ml Output Total 1800 ml 2475 ml 400 ml Balance -1550 ml -2475 ml -350 ml medications Current Medications Medications Dose Ordered Sig/Jeanne Route Start Time Stop Time Status Last Admin Dose Admin Amiodarone HCl 200 mg DAILY PO 09/07/24 10:00 09/08/24 11:37 200 MG Apixaban 5 mg BID PO 09/07/24 10:00 09/08/24 11:36 5 MG Atorvastatin Calcium 40 mg HS PO 09/07/24 22:00 09/07/24 21:38 40 MG Clopidogrel Bisulfate 75 mg DAILY PO 09/07/24 10:00 09/07/24 11:05 75 MG Melatonin 5 mg HS PRN PO 09/07/24 07:45 Montelukast Sodium 10 mg HS PO 09/07/24 22:00 09/07/24 21:39 10 MG Ondansetron HCl 4 mg Q4HP PRN IV 09/07/24 07:45 Docusate Sodium 100 mg BIDPRN PRN PO 09/07/24 07:45 Morphine Sulfate 2 mg Q4HPRN PRN IV 09/07/24 07:45 Nitroglycerin 0.4 mg Q5MINP PRN SL 09/07/24 07:45 Furosemide 20 mg BIDD IV 09/07/24 18:00 09/08/24 18:28 20 MG Famotidine 20 mg DAILY IV 09/08/24 10:00 09/08/24 11:38 20 MG Lorazepam 0.5 mg Q6HP PRN IV 09/07/24 07:45 09/07/24 13:55 0.5 MG Diagnostic Test (Pha) 1 strip Q6HR 09/07/24 12:00 09/08/24 18:28 1 STRIP Insulin Human Regular Q6HR SC 09/07/24 12:00 09/08/24 18:26 4 UNITS Dextrose 50 ml UD PRN IV 09/07/24 07:45 Albuterol 2.5 mg Q2HPRN PRN NEB 09/07/24 07:45 09/08/24 18:55 2.5 MG Ipratropium [place] 0.5 mg Q2HPRN PRN NEB 09/07/24 07:45 09/08/24 18:55 0.5 MG Azithromycin 250 ml @ 125 mls/hr DAILY IV 09/07/24 10:00 09/08/24 11:35 125 MLS/HR Metoprolol Succinate 25 mg DAILY PO 09/08/24 10:00 09/08/24 11:36 25 MG Empaglifozin 10 mg DAILY PO 09/08/24 10:00 09/08/24 11:37 10 MG Sacubitril/ Valsartan 1 tab BID PO 09/07/24 22:00 09/08/24 11:36 1 TAB Pantoprazole Sodium 40 mg BID IV 09/07/24 22:00 09/08/24 11:35 40 MG Methylprednisolone Sodium Succinate 40 mg Q8HR IV 09/08/24 22:00 objective GENERAL: Alert and oriented x 3. No acute distress. Morbidly obese. EYES: PERRL, EOMI. Anicteric. HENT: Moist mucous membranes. LUNGS: Diminished breath sounds. CARDIOVASCULAR: Regular rate and rhythm. ABDOMEN: Soft, nontender and nondistended. EXTREMITIES: Right lower extremity 3+ pitting edema, left lower extremity 2+ pitting edema. NEUROLOGIC: No focal neurological deficits. SKIN: Warm, dry. laboratory and microbiology Laboratory Tests 09/08/24 04:21 Test 09/08/24 04:21 Range/Units Serum Glucose 250 H 74-106 mg/dL Problem List Acute on chronic decompensated HFrEF, NYHA class III. Acute hypoxic respiratory failure. Pneumonia. NSTEMI, likely type II secondary to above. Coronary artery disease status post multiple PTCAs x 4 JOE (on ASA). Paroxysmal atrial fibrillation (on amiodarone and Eliquis). Hypertension. Dyslipidemia. COPD with home O2. History of tobacco use. Type 2 diabetes mellitus. Morbid obesity. Assessment/Plan Continued all current supportive medical care. Amiodarone. Eliquis. Lipitor, Plavix, Metoprolol. IV antibiotics as ordered. Diuretics with Lasix. GI prophylactics. Entresto. Morphine for pain management. Additional plan as per the hospital course. Plan discussed with: Patient HUMBLE MCCAIN MD Sep 08, 2024 21:19
[2024-09-09] VITALS (17 sets, daily range): BP systolic 95–135; BP diastolic 38–94; PULSE 72–84; RESP 16–20; TEMP 97.6–98.4; O2SAT 8–100
[2024-09-09 07:22] LABS: Basophils # (auto) 0 10 ^3/uL (0-0.2); Basophils % (auto) 0.1 % (0.0-2.0); Eosinophils # (auto) 0 10 ^3/uL (0-0.8); Hematocrit 29.8 % (36.0-46.0); Hemoglobin 9.6 g/dL (12.2-16.2); Lymphocytes # (auto) 0.4 10 ^3/uL (0.4-5.4); Lymphocytes % (auto) 6.2 % (10.0-50.0); Mean Corpuscular Hemoglobin 29.2 pg (28.0-32.0); Mean Corpuscular Hgb Conc. 32.3 g/dL (32.0-36.0); Mean Corpuscular Volume 90.4 fL (80.0-100.0); Monocytes # (auto) 0.2 10 ^3/uL (0-1.3); Monocytes % (auto) 3.1 % (0.0-12.0); Neutrophils # (auto) 5.9 10 ^3/uL (1.6-8.6); Neutrophils % (auto) 90.6 % (37.0-80.0); Nucleated Red Blood Cells % 0.1 %; Platelet Count (auto) 177 10^3/uL (140-450); Red Cell Distribution Width 16.5 % (11.8-14.3); White Blood Cell 6.5 10^3/uL (4.4-10.8)
[2024-09-09 07:30] LABS: Chloride 103 mmol/L (98-107); Potassium 4.3 mmol/L (3.5-5.1); Sodium 143 mmol/L (136-145)
[2024-09-09 07:31] LABS: Anion Gap 8 (5-15); Calcium 9.8 mg/dL (8.7-10.4)
[2024-09-09 07:34] LABS: Carbon Dioxide 32 mmol/L (20-31)
[2024-09-09 07:36] LABS: BUN/Creatinine Ratio 28.4 (10.0-20.0)
[2024-09-09 07:49] LABS: Blood Urea Nitrogen 40 mg/dL (9-23); Glucose 239 mg/dL (74-106)
[2024-09-09] MEDS: cefTRIAXone 1GM/50ML D5W 50 ML IV SCH (09:25)
[2024-09-09] MEDS ORDERED: AZITHROMYCIN 500MG/ 250ML 250 ML IV SCH (10:00)
--- NOTE | 2024-09-09 11:29 | DVHPN2 ---
Subjective The patient is seen and examined at bedside. Shortness for breath improved. Reviewed: Care Plan, H&P, Labs, Medications, Previous Orders, Radiology Eyes: No Pain, No Vision change, No Conjunctivae inflammation, No Eyelid inflammation, No Other, No Redness ENT: No Ear pain, No Ear discharge, No Nose pain, No Nose discharge, No Nose congestion, No Mouth pain, No Mouth swelling, No Throat pain, No Throat swelling, No Other Cardiovascular: No Chest Pain, No Palpitations, No Orthopnea, No Paroxysmal Noc. Dyspnea, No Edema, No Lt Headedness, No Other Respiratory: No Cough, No Dry; Shortness of breath, SOB with excertion; No Wheezing, No Hemoptysis, No Pleuritic Pain, No Sputum, No Other Gastrointestinal: No Nausea, No Vomiting, No Abdominal Pain, No Diarrhea, No Constipation, No Melena, No Hematochezia, No Other Genitourinary: No Dysuria, No Frequency, No Incontinence, No Hematuria, No Retention, No Other Musculoskeletal: No other, No neck pain, No shoulder pain, No arm pain, No back pain, No hand pain, No leg pain, No foot pain Skin: No Rash, No Lesions, No Jaundice, No Bruising, No Other Objective Vitals Vital Signs Date Time Temp Pulse Resp B/P (MAP) Pulse Ox O2 Delivery O2 Flow Rate FiO2 09/09/24 11:20 78 16 98 09/09/24 11:14 Nasal Cannula 3.0 09/09/24 11:14 32 09/09/24 10:54 100/78 09/09/24 09:00 97.6 97.6 Intake/Output Intake and Output 09/09/24 07:00 Intake Total 200 ml Output Total 1450 ml Balance -1250 ml Intake Oral 200 ml Output Urine Total 1450 ml General Appearance: Alert, Cooperative, No acute distress HEENT: Atraumatic, PERRLA, EOMI, Mucous membr. moist/pink Neck: Supple Lungs: Clear to auscultation, Normal air movement Cardiovascular: Regular rate, Normal S1, Normal S2, No murmurs, Gallops, Rubs Abdomen: Normal bowel sounds, Soft, No tenderness Neuro: Cranial nerves 3-12 NL Psych/Mental Status: Mental status NL Medications Current Medications Medications Dose Ordered Sig/Jeanne Route Start Time Stop Time Status Last Admin Dose Admin Amiodarone HCl 200 mg DAILY PO 4/26/25 10:00 09/09/24 10:50 200 MG Apixaban 5 mg BID PO 09/07/24 10:00 09/09/24 10:50 5 MG Atorvastatin Calcium 40 mg HS PO 09/07/24 22:00 09/08/24 21:27 40 MG Clopidogrel Bisulfate 75 mg DAILY PO 09/07/24 10:00 09/09/24 10:49 75 MG Melatonin 5 mg HS PRN PO 09/07/24 07:45 Montelukast Sodium 10 mg HS PO 09/07/24 22:00 09/08/24 21:27 10 MG Ondansetron HCl 4 mg Q4HP PRN IV 09/07/24 07:45 09/08/24 21: 4 MG Docusate Sodium 100 mg BIDPRN PRN PO 09/07/24 07:45 Morphine Sulfate 2 mg Q4HPRN PRN IV 09/07/24 07:45 09/08/24 21:27 2 MG Nitroglycerin 0.4 mg Q5MINP PRN SL 09/07/24 07:45 Furosemide 20 mg BIDD IV 09/07/24 18:00 09/09/24 05:39 20 MG Famotidine 20 mg DAILY IV 09/08/24 10:00 09/09/24 10:48 20 MG Lorazepam 0.5 mg Q6HP PRN IV 09/07/24 07:45 09/07/24 13:55 0.5 MG Diagnostic Test (Pha) 1 strip Q6HR 09/07/24 12:00 09/09/24 05:39 1 STRIP Insulin Human Regular Q6HR SC 09/07/24 12:00 09/09/24 05:44 4 UNITS Dextrose 50 ml UD PRN IV 09/07/24 07:45 Albuterol 2.5 mg Q2HPRN PRN NEB 09/07/24 07:45 09/09/24 11:14 2.5 MG Ipratropium [place] 0.5 mg Q2HPRN PRN NEB 09/07/24 07:45 09/09/24 11:14 0.5 MG Azithromycin 250 ml @ 125 mls/hr DAILY IV 09/07/24 10:00 09/09/24 10:51 125 MLS/HR Metoprolol Succinate 25 mg DAILY PO 09/08/24 10:00 09/09/24 10:54 25 MG Empaglifozin 10 mg DAILY PO 09/08/24 10:00 09/09/24 10:49 10 MG Sacubitril/ Valsartan 1 tab BID PO 09/07/24 22:00 09/09/24 10:49 1 TAB Pantoprazole Sodium 40 mg BID IV 09/07/24 22:00 09/09/24 10:50 40 MG Methylprednisolone Sodium Succinate 40 mg Q8HR IV 09/08/24 22:00 09/09/24 05:37 40 MG Ceftriaxone Sodium 50 ml @ 100 mls/hr DAILY@09 IV 09/09/24 09:00 09/09/24 09:25 100 MLS/HR Azithromycin 250 ml @ 125 mls/hr DAILY IV 09/09/24 10:00 Cancel Laboratory Results Laboratory Tests 09/09/24 06:48 Chemistry Test 09/09/24 06:48 Calcium Level 9.8 mg/dL (8.7-10.4) Urinalysis Test 09/07/24 06:23 Urine Color Light-yellow (Yellow) Urine Clarity Clear (Clear) Urine pH 6.5 (5.0-9.0) Urine Specific [place] 1.017 (1.001-1.035) Urine Protein Negative (Negative) Urine Ketones Negative (Negative) Urine Blood Negative /uL (Negative) Urine Nitrite Negative (Negative) Urine Bilirubin Negative (Negative) Urine Urobilinogen Normal mg/dL (Negative) Urine Leukocyte Esterase Negative /uL (Negative) Urine RBC <1 /hpf (0 - 4) Urine Microscopic WBC < 1 /HPF (0-5) Urine Squamous Epithelial Cells Few /hpf (<5) Urine Bacteria None seen /hpf (None Seen) Urine Mucus Few (None Seen) Urine Glucose 2+ mg/dL (Normal) H Microbiology Microbiology Date/Time Source Procedure Growth Status 09/07/24 22:00 Nose MRSA Screen - Final Complete Assessment/Plan Assessment/Plan Acute on Chronic hypoxic Respiratory Failure CHF & COPD Exacerbation Atrial Fibrillation CAD Diabetes Mellitus type 2 uncontrolled Systolic CHF with exacerbation (EF 25-30%) Hyperlipidemia COPD on home O2 4l nc Anemia Pneumonia (recent) hx of intubation x2 last 07/2024 Continuing current management. Downgrade the patient to telemetry. Continuing with BiPAP as needed. Appreciate Environmental Remediation Consultant input. Continuing sliding scale insulin. Continuing with Eliquis. Continuing with IV Lasix. Continuing with nebulizer. Continuing with Solu-Medrol. Continuing with oxygen titrate to keep saturation oxygen above 92%. We will empirically start IV antibiotic with Rocephin and Zithromax. This medical document was created using an electronic medical record system with [employer] computerized dictation system. Although this document has been carefully reviewed, there may still be some phonetic and typographical errors. These areas are purely typographical due to imperfections of the software programs, and do not reflect any compromise in the patient's medical care. My Orders Orders - SHRUTI DAVID MD Procedure Category Date Status Time Ceftriaxone 1gm/50ml PHA 09/09/24 In Process D5w (Rocephin) 09:00 SHRUTI DAVID MD Sep 09, 2024 11:29
--- NOTE | 2024-09-09 12:32 | DVHPN2 ---
Progress Note - Dictate Date Seen: Sep 09, 2024 Has the PT tested + for MRSA If YES, has PT been informed?: No Medical Necessity Reason Pt with a Central, PICC or Fol: No vital signs Vital Sign Date Time Temp Pulse Resp B/P (MAP) Pulse Ox O2 Delivery O2 Flow Rate FiO2 09/09/24 11:20 78 16 98 09/09/24 11:14 Nasal Cannula 3.0 09/09/24 11:14 32 09/09/24 10:54 100/78 09/09/24 09:00 97.6 97.6 Total Intake and Output 09/08/24 09/08/24 09/09/24 15:00 23:00 07:00 Intake Total 200 ml Output Total 1450 ml Balance -1250 ml medications Current Medications Medications Dose Ordered Sig/Jeanne Route Start Time Stop Time Status Last Admin Dose Admin Amiodarone HCl 200 mg DAILY PO 09/07/24 10:00 09/09/24 10:50 200 MG Apixaban 5 mg BID PO 09/07/24 10:00 09/09/24 10:50 5 MG Atorvastatin Calcium 40 mg HS PO 09/07/24 22:00 09/08/24 21:27 40 MG Clopidogrel Bisulfate 75 mg DAILY PO 09/07/24 10:00 09/09/24 10:49 75 MG Melatonin 5 mg HS PRN PO 09/07/24 07:45 Montelukast Sodium 10 mg HS PO 09/07/24 22:00 09/08/24 21:27 10 MG Ondansetron HCl 4 mg Q4HP PRN IV 09/07/24 07:45 09/08/24 21:25 4 MG Docusate Sodium 100 mg BIDPRN PRN PO 09/07/24 07:45 Morphine Sulfate 2 mg Q4HPRN PRN IV 09/07/24 07:45 09/08/24 21:27 2 MG Nitroglycerin 0.4 mg Q5MINP PRN SL 09/07/24 07:45 Furosemide 20 mg BIDD IV 09/07/24 18:00 09/09/24 05:39 20 MG Famotidine 20 mg DAILY IV 09/08/24 10:00 09/09/24 10:48 20 MG Lorazepam 0.5 mg Q6HP PRN IV 09/07/24 07:45 09/07/24 13:55 0.5 MG Diagnostic Test (Pha) 1 strip Q6HR 09/07/24 12:00 09/09/24 11:31 1 STRIP Insulin Human Regular Q6HR SC 09/07/24 12:00 09/09/24 11:58 6 UNITS Dextrose 50 ml UD PRN IV 09/07/24 07:45 Albuterol 2.5 mg Q2HPRN PRN NEB 09/07/24 07:45 09/09/24 11:14 2.5 MG Ipratropium [place] 0.5 mg Q2HPRN PRN NEB 09/07/24 07:45 09/09/24 11:14 0.5 MG Azithromycin 250 ml @ 125 mls/hr DAILY IV 09/07/24 10:00 09/09/24 10:51 125 MLS/HR Metoprolol Succinate 25 mg DAILY PO 09/08/24 10:00 09/09/24 10:54 25 MG Empaglifozin 10 mg DAILY PO 09/08/24 10:00 09/09/24 10:49 10 MG Sacubitril/ Valsartan 1 tab BID PO 09/07/24 22:00 09/09/24 10:49 1 TAB Pantoprazole Sodium 40 mg BID IV 09/07/24 22:00 09/09/24 10:50 40 MG Methylprednisolone Sodium Succinate 40 mg Q8HR IV 09/08/24 22:00 09/09/24 05:37 40 MG Ceftriaxone Sodium 50 ml @ 100 mls/hr DAILY@09 IV 09/09/24 09:00 09/09/24 09:25 100 MLS/HR Azithromycin 250 ml @ 125 mls/hr DAILY IV 09/09/24 10:00 Cancel laboratory and microbiology Laboratory Tests 09/09/24 06:48 Test 09/09/24 06:48 Range/Units Serum Glucose 239 H 74-106 mg/dL Assessment/Plan acute exacerbation of copd pneumonia hypoxemic resp failre fluid retention events none resting comfortably management continue supportive care iv steroids transition to prednisone prior to dc with taper diurese monitor labs, lytes replace abx azithromycin dvt proph Plan discussed with: Patient RONALD MEJIA MD Sep 09, 2024 12:32
--- NOTE | 2024-09-09 22:55 | DVHPN2 ---
Progress Note - Dictate Date Seen: Sep 09, 2024 Has the PT tested + for MRSA If YES, has PT been informed?: No Medical Necessity Reason Pt with a Central, PICC or Fol: No Subjective Patient was seen and evaluated in follow up. Patient is on 4 LPM NC. Patient reports improvement in SOB. 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 Telemetry reviewed. vital signs Vital Sign Date Time Temp Pulse Resp B/P (MAP) Pulse Ox O2 Delivery O2 Flow Rate FiO2 09/09/24 22:29 72 16 99 09/09/24 22:23 Nasal Cannula* 4 36 09/09/24 18:27 95/59 09/09/24 17:00 98.4 98.4 Total Intake and Output 09/08/24 09/08/24 09/09/24 15:00 23:00 07:00 Intake Total 200 ml Output Total 1450 ml Balance -1250 ml medications Current Medications Medications Dose Ordered Sig/Jeanne Route Start Time Stop Time Status Last Admin Dose Admin Amiodarone HCl 200 mg DAILY PO 09/07/24 10:00 09/09/24 10:50 200 MG Apixaban 5 mg BID PO 09/07/24 10:00 09/09/24 10:50 5 MG Atorvastatin Calcium 40 mg HS PO 09/07/24 22:00 09/08/24 21:27 40 MG Clopidogrel Bisulfate 75 mg DAILY PO 09/07/24 10:00 09/09/24 10:49 75 MG Melatonin 5 mg HS PRN PO 09/07/24 07:45 Montelukast Sodium 10 mg HS PO 09/07/24 22:00 09/08/24 21:27 10 MG Ondansetron HCl 4 mg Q4HP PRN IV 09/07/24 07:45 09/08/24 21:25 4 MG Docusate Sodium 100 mg BIDPRN PRN PO 09/07/24 07:45 Morphine Sulfate 2 mg Q4HPRN PRN IV 09/07/24 07:45 09/08/24 21:27 2 MG Nitroglycerin 0.4 mg Q5MINP PRN SL 09/07/24 07:45 Furosemide 20 mg BIDD IV 09/07/24 18:00 09/09/24 18:27 20 MG Famotidine 20 mg DAILY IV 09/08/24 10:00 09/09/24 10:48 20 MG Lorazepam 0.5 mg Q6HP PRN IV 09/07/24 07:45 09/07/24 13:55 0.5 MG Diagnostic Test (Pha) 1 strip Q6HR 09/07/24 12:00 09/09/24 17:09 1 STRIP Insulin Human Regular Q6HR SC 09/07/24 12:00 09/09/24 18:28 3 UNITS Dextrose 50 ml UD PRN IV 09/07/24 07:45 Albuterol 2.5 mg Q2HPRN PRN NEB 09/07/24 07:45 09/09/24 22:23 2.5 MG Ipratropium [place] 0.5 mg Q2HPRN PRN NEB 09/07/24 07:45 09/09/24 22:23 0.5 MG Azithromycin 250 ml @ 125 mls/hr DAILY IV 09/07/24 10:00 09/09/24 10:51 125 MLS/HR Metoprolol Succinate 25 mg DAILY PO 09/08/24 10:00 09/09/24 10:54 25 MG Empaglifozin 10 mg DAILY PO 09/08/24 10:00 09/09/24 10:49 10 MG Sacubitril/ Valsartan 1 tab BID PO 09/07/24 22:00 09/09/24 10:49 1 TAB Pantoprazole Sodium 40 mg BID IV 09/07/24 22:00 09/09/24 10:50 40 MG Methylprednisolone Sodium Succinate 40 mg Q8HR IV 09/08/24 22:00 09/09/24 17:10 40 MG Ceftriaxone Sodium 50 ml @ 100 mls/hr DAILY@09 IV 09/09/24 09:00 09/09/24 09:25 100 MLS/HR Azithromycin 250 ml @ 125 mls/hr DAILY IV 09/09/24 10:00 Cancel objective GENERAL: Alert and oriented x 3. No acute distress. Morbidly obese. EYES: PERRL, EOMI. Anicteric. HENT: Moist mucous membranes. LUNGS: Diminished breath sounds. CARDIOVASCULAR: Regular rate and rhythm. ABDOMEN: Soft, nontender and nondistended. EXTREMITIES: Right lower extremity 3+ pitting edema, left lower extremity 2+ pitting edema. NEUROLOGIC: No focal neurological deficits. SKIN: Warm, dry. laboratory and microbiology Laboratory Tests 09/09/24 06:48 Test 09/09/24 06:48 Range/Units Serum Glucose 239 H 74-106 mg/dL Problem List Acute on chronic decompensated HFrEF, NYHA class III. Acute hypoxic respiratory failure. Pneumonia. NSTEMI, likely type II secondary to above. Coronary artery disease status post multiple PTCAs x 4 JOE (on ASA). Paroxysmal atrial fibrillation (on amiodarone and Eliquis). Hypertension. Dyslipidemia. COPD with home O2. History of tobacco use. Type 2 diabetes mellitus. Morbid obesity. Assessment/Plan Continued all current supportive medical care. Amiodarone. Eliquis. Lipitor, Plavix, Metoprolol. IV antibiotics as ordered. Diuretics with Lasix. GI prophylactics. Entresto. Morphine for pain management. Additional plan as per the hospital course. Plan discussed with: Patient HUMBLE MCCAIN MD Sep 09, 2024 22:55
[2024-09-10] VITALS (22 sets, daily range): BP systolic 85–113; BP diastolic 41–67; PULSE 64–110; RESP 17–96; TEMP 97.7–98.4; O2SAT 94–100
[2024-09-10] MEDS ORDERED: ALBUTEROL SULF 2.5 MG/0.5ML(0.5%) NEB SOLN NEB SCH (13:00)
[2024-09-10] MEDS ORDERED: IPRATROPIUM BROM 0.5 MG/2.5ML INH SOL NEB SCH (13:00)
--- NOTE | 2024-09-10 13:13 | DVHPN2 ---
Progress Note - Dictate Date Seen: Sep 10, 2024 Has the PT tested + for MRSA If YES, has PT been informed?: No Medical Necessity Reason Pt with a Central, PICC or Fol: No vital signs Vital Sign Date Time Temp Pulse Resp B/P (MAP) Pulse Ox O2 Delivery O2 Flow Rate FiO2 09/10/24 10:49 88 95/59 09/10/24 10:39 18 98 09/10/24 10:28 Nasal Cannula 3.0 09/10/24 10:14 32 09/10/24 09:00 97.7 97.7 Total Intake and Output 09/09/24 09/09/24 09/10/24 15:00 23:00 07:00 Intake Total 200 ml 250 ml 300 ml Output Total 1200 ml 1080 ml Balance 200 ml -950 ml -780 ml medications Current Medications Medications Dose Ordered Sig/Jeanne Route Start Time Stop Time Status Last Admin Dose Admin Amiodarone HCl 200 mg DAILY PO 09/07/24 10:00 09/10/24 10:49 200 MG Apixaban 5 mg BID PO 09/07/24 10:00 09/10/24 10:49 5 MG Atorvastatin Calcium 40 mg HS PO 09/07/24 22:00 09/09/24 23:08 40 MG Clopidogrel Bisulfate 75 mg DAILY PO 09/07/24 10:00 09/10/24 10:49 75 MG Melatonin 5 mg HS PRN PO 09/07/24 07:45 Montelukast Sodium 10 mg HS PO 09/07/24 22:00 09/09/24 23:08 10 MG Ondansetron HCl 4 mg Q4HP PRN IV 09/07/24 07:45 09/10/24 00:24 4 MG Docusate Sodium 100 mg BIDPRN PRN PO 09/07/24 07:45 Morphine Sulfate 2 mg Q4HPRN PRN IV 09/07/24 07:45 09/10/24 00:45 2 MG Nitroglycerin 0.4 mg Q5MINP PRN SL 09/07/24 07:45 Furosemide 20 mg BIDD IV 09/07/24 18:00 09/10/24 06:28 20 MG Famotidine 20 mg DAILY IV 09/08/24 10:00 09/10/24 12:44 20 MG Lorazepam 0.5 mg Q6HP PRN IV 09/07/24 07:45 09/10/24 12:45 0.5 MG Diagnostic Test (Pha) 1 strip Q6HR 09/07/24 12:00 09/10/24 12:44 1 STRIP Insulin Human Regular Q6HR SC 09/07/24 12:00 09/10/24 12:51 8 UNITS Dextrose 50 ml UD PRN IV 09/07/24 07:45 Azithromycin 250 ml @ 125 mls/hr DAILY IV 09/07/24 10:00 09/10/24 10:48 125 MLS/HR Metoprolol Succinate 25 mg DAILY PO 09/08/24 10:00 09/10/24 10:49 25 MG Empaglifozin 10 mg DAILY PO 09/08/24 10:00 09/10/24 10:50 10 MG Sacubitril/ Valsartan 1 tab BID PO 09/07/24 22:00 09/10/24 10:48 1 TAB Pantoprazole Sodium 40 mg BID IV 09/07/24 22:00 09/10/24 10:48 40 MG Methylprednisolone Sodium Succinate 40 mg Q8HR IV 09/08/24 22:00 09/10/24 06:28 40 MG Ceftriaxone Sodium 50 ml @ 100 mls/hr DAILY@09 IV 09/09/24 09:00 09/10/24 09:18 100 MLS/HR Azithromycin 250 ml @ 125 mls/hr DAILY IV 09/09/24 10:00 Cancel Guaifenesin/ Dextromethorphan 10 ml Q6HPRN PRN PO 09/10/24 13:00 Albuterol 2.5 mg Q4HR NEB 09/10/24 14:00 UNV Ipratropium [place] 0.5 mg Q4HR NEB 09/10/24 14:00 UNV laboratory and microbiology Laboratory Tests 09/09/24 06:48 Test 09/09/24 06:48 Range/Units Serum Glucose 239 H 74-106 mg/dL Assessment/Plan acute exacerbation of copd pneumonia hypoxemic resp failre fluid retention events none resting comfortably improving management continue supportive care iv steroids transition to prednisone prior to dc with taper diurese monitor labs, lytes replace abx azithromycin dvt proph ok to dc home Plan discussed with: Patient RONALD MEJIA MD Sep 10, 2024 13:13
[2024-09-10] MEDS: IPRATROPIUM BROM 0.5 MG/2.5ML INH SOL NEB SCH (14:22)
[2024-09-10] MEDS: ALBUTEROL SULF 2.5 MG/0.5ML(0.5%) NEB SOLN NEB SCH (14:23)
[2024-09-10] MEDS: guaiFENesin-DM 100/10mg/5ml SYR PO PRN (14:46)
--- NOTE | 2024-09-10 22:42 | DVHPN2 ---
Subjective The patient is seen and examined at bedside. Shortness for breath improved. Reviewed: Care Plan, H&P, Labs, Medications, Previous Orders, Radiology Eyes: No Pain, No Vision change, No Conjunctivae inflammation, No Eyelid inflammation, No Other, No Redness ENT: No Ear pain, No Ear discharge, No Nose pain, No Nose discharge, No Nose congestion, No Mouth pain, No Mouth swelling, No Throat pain, No Throat swelling, No Other Cardiovascular: No Chest Pain, No Palpitations, No Orthopnea, No Paroxysmal Noc. Dyspnea, No Edema, No Lt Headedness, No Other Respiratory: No Cough, No Dry; Shortness of breath, SOB with excertion; No Wheezing, No Hemoptysis, No Pleuritic Pain, No Sputum, No Other Gastrointestinal: No Nausea, No Vomiting, No Abdominal Pain, No Diarrhea, No Constipation, No Melena, No Hematochezia, No Other Genitourinary: No Dysuria, No Frequency, No Incontinence, No Hematuria, No Retention, No Other Musculoskeletal: No other, No neck pain, No shoulder pain, No arm pain, No back pain, No hand pain, No leg pain, No foot pain Skin: No Rash, No Lesions, No Jaundice, No Bruising, No Other Objective Vitals Vital Signs Date Time Temp Pulse Resp B/P (MAP) Pulse Ox O2 Delivery O2 Flow Rate FiO2 09/10/24 22:22 65 18 100 09/10/24 22:16 Nasal Cannula* 3 32 09/10/24 21:00 98.4 100/62 (75) 98.4 Intake/Output Intake and Output 09/10/24 07:00 Intake Total 750 ml Output Total 2280 ml Balance -1530 ml Intake Oral 550 ml IV Total 200 ml Output Urine Total 2280 ml General Appearance: Alert, Cooperative, No acute distress HEENT: Atraumatic, PERRLA, EOMI, Mucous membr. moist/pink Neck: Supple Lungs: Clear to auscultation, Normal air movement Cardiovascular: Regular rate, Normal S1, Normal S2, No murmurs, Gallops, Rubs Abdomen: Normal bowel sounds, Soft, No tenderness Neuro: Cranial nerves 3-12 NL Psych/Mental Status: Mental status NL Medications Current Medications Medications Dose Ordered Sig/Jeanne Route Start Time Stop Time Status Last Admin Dose Admin Amiodarone HCl 200 mg DAILY PO 09/07/24 10:00 09/10/24 10:49 200 MG Apixaban 5 mg BID PO 09/07/24 10:00 09/10/24 21:48 5 MG Atorvastatin Calcium 40 mg HS PO 09/07/24 22:00 09/10/24 21:45 40 MG Clopidogrel Bisulfate 75 mg DAILY PO 09/07/24 10:00 09/10/24 10:49 75 MG Melatonin 5 mg HS PRN PO 09/07/24 07:45 Montelukast Sodium 10 mg HS PO 09/07/24 22:00 09/10/24 21:45 10 MG Ondansetron HCl 4 mg Q4HP PRN IV 09/07/24 07:45 09/10/24 00:24 4 MG Docusate Sodium 100 mg BIDPRN PRN PO 09/07/24 07:45 Morphine Sulfate 2 mg Q4HPRN PRN IV 09/07/24 07:45 09/10/24 00:45 2 MG Nitroglycerin 0.4 mg Q5MINP PRN SL 09/07/24 07:45 Furosemide 20 mg BIDD IV 09/07/24 18:00 09/10/24 18:13 20 MG Famotidine 20 mg DAILY IV 09/08/24 10:00 09/10/24 12:44 20 MG Lorazepam 0.5 mg Q6HP PRN IV 09/07/24 07:45 09/10/24 21:43 0.5 MG Diagnostic Test (Pha) 1 strip Q6HR 09/07/24 12:00 09/10/24 18:13 1 STRIP Insulin Human Regular Q6HR SC 09/07/24 12:00 09/10/24 18:19 10 UNITS Dextrose 50 ml UD PRN IV 09/07/24 07:45 Azithromycin 250 ml @ 125 mls/hr DAILY IV 09/07/24 10:00 09/10/24 10:48 125 MLS/HR Metoprolol Succinate 25 mg DAILY PO 09/08/24 10:00 09/10/24 10:49 25 MG Empaglifozin 10 mg DAILY PO 09/08/24 10:00 09/10/24 10:50 10 MG Sacubitril/ Valsartan 1 tab BID PO 09/07/24 22:00 09/10/24 21:44 1 TAB Pantoprazole Sodium 40 mg BID IV 09/07/24 22:00 Hold 09/10/24 10:48 40 MG Methylprednisolone Sodium Succinate 40 mg Q8HR IV 09/08/24 22:00 09/10/24 21:49 40 MG Ceftriaxone Sodium 50 ml @ 100 mls/hr DAILY@09 IV 09/09/24 09:00 09/10/24 09:18 100 MLS/HR Azithromycin 250 ml @ 125 mls/hr DAILY IV 09/09/24 10:00 Cancel Guaifenesin/ Dextromethorphan 10 ml Q6HPRN PRN PO 09/10/24 13:00 09/10/24 14:46 10 ML Albuterol 2.5 mg Q4HR NEB 09/10/24 14:00 09/10/24 22:16 2.5 MG Ipratropium [place] 0.5 mg Q4HR NEB 09/10/24 14:00 09/10/24 22:16 0.5 MG Laboratory Results Laboratory Tests 09/09/24 06:48 Urinalysis Test 09/07/24 06:23 Urine Color Light-yellow (Yellow) Urine Clarity Clear (Clear) Urine pH 6.5 (5.0-9.0) Urine Specific [place] 1.017 (1.001-1.035) Urine Protein Negative (Negative) Urine Ketones Negative (Negative) Urine Blood Negative /uL (Negative) Urine Nitrite Negative (Negative) Urine Bilirubin Negative (Negative) Urine Urobilinogen Normal mg/dL (Negative) Urine Leukocyte Esterase Negative /uL (Negative) Urine RBC <1 /hpf (0 - 4) Urine Microscopic WBC < 1 /HPF (0-5) Urine Squamous Epithelial Cells Few /hpf (<5) Urine Bacteria None seen /hpf (None Seen) Urine Mucus Few (None Seen) Urine Glucose 2+ mg/dL (Normal) H Microbiology Microbiology Date/Time Source Procedure Growth Status 09/07/24 22:00 Nose MRSA Screen - Final Complete Assessment/Plan Assessment/Plan Acute on Chronic hypoxic Respiratory Failure CHF & COPD Exacerbation Atrial Fibrillation CAD Diabetes Mellitus type 2 uncontrolled Systolic CHF with exacerbation (EF 25-30%) Hyperlipidemia COPD on home O2 4l nc Anemia Pneumonia (recent) hx of intubation x2 last 07/2024 Continuing current management. Downgrade the patient to telemetry. Continuing with BiPAP as needed. Appreciate Radioisotope Technologist input. Continuing sliding scale insulin. Continuing with Eliquis. Continuing with IV Lasix. Continuing with nebulizer. Continuing with Solu-Medrol. Continuing with oxygen titrate to keep saturation oxygen above 92%. We will empirically start IV antibiotic with Rocephin and Zithromax. This medical document was created using an electronic medical record system with [employer] dictation system. Although this document has been carefully reviewed, there may still be some phonetic and typographical errors. These areas are purely typographical due to imperfections of the software programs, and do not reflect any compromise in the patient's medical care. My Orders Orders - SHRUTI DAVID MD Procedure Category Date Status Time Guaifenesin-Dextromet PHA 09/10/24 In Process Liquid (Robitussin 13:00 Albuterol Medneb PHA 09/10/24 In Process (Ventolin Medneb) 14:00 Ipratropium Medneb PHA 09/10/24 In Process (Atrovent Medneb) 14:00 SHRUTI DAVID MD Sep 10, 2024 22:42
--- NOTE | 2024-09-10 23:03 | DVHPN2 ---
Progress Note - Dictate Date Seen: Sep 10, 2024 Has the PT tested + for MRSA If YES, has PT been informed?: No Medical Necessity Reason Pt with a Central, PICC or Fol: No Subjective Patient was seen and evaluated in follow up. Patient is on 3 LPM NC. Patient is resting comfortably in bed. Shortness of breath is slowly improving. Telemetry reviewed. vital signs Vital Sign Date Time Temp Pulse Resp B/P (MAP) Pulse Ox O2 Delivery O2 Flow Rate FiO2 09/10/24 22:22 65 18 100 09/10/24 22:16 Nasal Cannula* 3 32 09/10/24 21:00 98.4 100/62 (75) 98.4 Total Intake and Output 09/09/24 09/09/24 09/10/24 15:00 23:00 07:00 Intake Total 200 ml 250 ml 300 ml Output Total 1200 ml 1080 ml Balance 200 ml -950 ml -780 ml medications Current Medications Medications Dose Ordered Sig/Jeanne Route Start Time Stop Time Status Last Admin Dose Admin Amiodarone HCl 200 mg DAILY PO 09/07/24 10:00 09/10/24 10:49 200 MG Apixaban 5 mg BID PO 09/07/24 10:00 09/10/24 21:48 5 MG Atorvastatin Calcium 40 mg HS PO 09/07/24 22:00 09/10/24 21:45 40 MG Clopidogrel Bisulfate 75 mg DAILY PO 09/07/24 10:00 09/10/24 10:49 75 MG Melatonin 5 mg HS PRN PO 09/07/24 07:45 Montelukast Sodium 10 mg HS PO 09/07/24 22:00 09/10/24 21:45 10 MG Ondansetron HCl 4 mg Q4HP PRN IV 09/07/24 07:45 09/10/24 00:24 4 MG Docusate Sodium 100 mg BIDPRN PRN PO 09/07/24 07:45 Morphine Sulfate 2 mg Q4HPRN PRN IV 09/07/24 07:45 09/10/24 00:45 2 MG Nitroglycerin 0.4 mg Q5MINP PRN SL 09/07/24 07:45 Furosemide 20 mg BIDD IV 09/07/24 18:00 09/10/24 18:13 20 MG Famotidine 20 mg DAILY IV 09/08/24 10:00 09/10/24 12:44 20 MG Lorazepam 0.5 mg Q6HP PRN IV 09/07/24 07:45 09/10/24 21:43 0.5 MG Diagnostic Test (Pha) 1 strip Q6HR 09/07/24 12:00 09/10/24 18:13 1 STRIP Insulin Human Regular Q6HR SC 09/07/24 12:00 09/10/24 18:19 10 UNITS Dextrose 50 ml UD PRN IV 09/07/24 07:45 Azithromycin 250 ml @ 125 mls/hr DAILY IV 09/07/24 10:00 09/10/24 10:48 125 MLS/HR Metoprolol Succinate 25 mg DAILY PO 09/08/24 10:00 09/10/24 10:49 25 MG Empaglifozin 10 mg DAILY PO 09/08/24 10:00 09/10/24 10:50 10 MG Sacubitril/ Valsartan 1 tab BID PO 09/07/24 22:00 09/10/24 21:44 1 TAB Pantoprazole Sodium 40 mg BID IV 09/07/24 22:00 Hold 09/10/24 10:48 40 MG Methylprednisolone Sodium Succinate 40 mg Q8HR IV 09/08/24 22:00 09/10/24 21:49 40 MG Ceftriaxone Sodium 50 ml @ 100 mls/hr DAILY@09 IV 09/09/24 09:00 09/10/24 09:18 100 MLS/HR Azithromycin 250 ml @ 125 mls/hr DAILY IV 09/09/24 10:00 Cancel Guaifenesin/ Dextromethorphan 10 ml Q6HPRN PRN PO 09/10/24 13:00 09/10/24 14:46 10 ML Albuterol 2.5 mg Q4HR NEB 09/10/24 14:00 09/10/24 22:16 2.5 MG Ipratropium [place] 0.5 mg Q4HR NEB 09/10/24 14:00 09/10/24 22:16 0.5 MG objective GENERAL: Alert and oriented x 3. No acute distress. Morbidly obese. EYES: PERRL, EOMI. Anicteric. HENT: Moist mucous membranes. LUNGS: Diminished breath sounds. CARDIOVASCULAR: Regular rate and rhythm. ABDOMEN: Soft, nontender and nondistended. EXTREMITIES: Right lower extremity 3+ pitting edema, left lower extremity 2+ pitting edema. NEUROLOGIC: No focal neurological deficits. SKIN: Warm, dry. laboratory and microbiology Laboratory Tests 09/09/24 06:48 Test 09/09/24 06:48 Range/Units Serum Glucose 239 H 74-106 mg/dL Problem List Acute on chronic decompensated HFrEF, NYHA class III. Acute hypoxic respiratory failure. Pneumonia. NSTEMI, likely type II secondary to above. Coronary artery disease status post multiple PTCAs x 4 JOE (on ASA). Paroxysmal atrial fibrillation (on amiodarone and Eliquis). Hypertension. Dyslipidemia. COPD with home O2. History of tobacco use. Type 2 diabetes mellitus. Morbid obesity. Assessment/Plan Continued all current supportive medical care. Amiodarone. Eliquis. Lipitor, Plavix, Metoprolol. IV antibiotics as ordered. Diuretics with Lasix. GI prophylactics. Entresto. Morphine for pain management. Additional plan as per the hospital course. Dietary Evaluation Review Comments: 1. Continue CHO 60 gm, Cardiac diet as tolerated 2. Noted hyperglycemia due to steroids, adjust ss insulin to maintain BG <180 mg/dl 3. Will add trial of Glucerna daily to enhance PO given variable intakes (provides 220 kcal, 10 gm pro per carton) Expected Outcomes/Goals: Improved nutritional status, good glycemic control. Plan discussed with: Patient HUMBLE MCCAIN MD Sep 10, 2024 23:03
[2024-09-11] VITALS (15 sets, daily range): BP systolic 96–136; BP diastolic 53–73; PULSE 61–117; RESP 16–19; TEMP 97.8–98.8; O2SAT 93–100
--- NOTE | 2024-09-11 11:49 | DVHPN2 ---
Subjective The patient is seen and examined at bedside. Shortness for breath improved. Reviewed: Care Plan, H&P, Labs, Medications, Previous Orders, Radiology Eyes: No Pain, No Vision change, No Conjunctivae inflammation, No Eyelid inflammation, No Other, No Redness ENT: No Ear pain, No Ear discharge, No Nose pain, No Nose discharge, No Nose congestion, No Mouth pain, No Mouth swelling, No Throat pain, No Throat swelling, No Other Cardiovascular: No Chest Pain, No Palpitations, No Orthopnea, No Paroxysmal Noc. Dyspnea, No Edema, No Lt Headedness, No Other Respiratory: No Cough, No Dry; Shortness of breath, SOB with excertion; No Wheezing, No Hemoptysis, No Pleuritic Pain, No Sputum, No Other Gastrointestinal: No Nausea, No Vomiting, No Abdominal Pain, No Diarrhea, No Constipation, No Melena, No Hematochezia, No Other Genitourinary: No Dysuria, No Frequency, No Incontinence, No Hematuria, No Retention, No Other Musculoskeletal: No other, No neck pain, No shoulder pain, No arm pain, No back pain, No hand pain, No leg pain, No foot pain Skin: No Rash, No Lesions, No Jaundice, No Bruising, No Other Objective Vitals Vital Signs Date Time Temp Pulse Resp B/P (MAP) Pulse Ox O2 Delivery O2 Flow Rate FiO2 09/11/24 10:07 69 16 100 09/11/24 09:00 97.8 107/59 (75) 97.8 09/11/24 08:00 Nasal Cannula* 3 32 Intake/Output Intake and Output 09/11/24 07:00 Intake Total 1100 ml Output Total 1800 ml Balance -700 ml Intake Oral 800 ml IV Total 300 ml Output Urine Total 1800 ml General Appearance: Alert, Cooperative, No acute distress HEENT: Atraumatic, PERRLA, EOMI, Mucous membr. moist/pink Neck: Supple Lungs: Clear to auscultation, Normal air movement Cardiovascular: Regular rate, Normal S1, Normal S2, No murmurs, Gallops, Rubs Abdomen: Normal bowel sounds, Soft, No tenderness Neuro: Cranial nerves 3-12 NL Psych/Mental Status: Mental status NL Medications Current Medications Medications Dose Ordered Sig/Jeanne Route Start Time Stop Time Status Last Admin Dose Admin Amiodarone HCl 200 mg DAILY PO 09/07/24 10:00 09/11/24 10:55 200 MG Apixaban 5 mg BID PO 09/07/24 10:00 09/11/24 10:56 5 MG Atorvastatin Calcium 40 mg HS PO 09/07/24 22:00 09/10/24 21:45 40 MG Clopidogrel Bisulfate 75 mg DAILY PO 09/07/24 10:00 09/10/24 10:49 75 MG Melatonin 5 mg HS PRN PO 09/07/24 07:45 Montelukast Sodium 10 mg HS PO 09/07/24 22:00 09/10/24 21:45 10 MG Ondansetron HCl 4 mg Q4HP PRN IV 09/07/24 07:45 09/10/24 00:24 4 MG Docusate Sodium 100 mg BIDPRN PRN PO 09/07/24 07:45 Morphine Sulfate 2 mg Q4HPRN PRN IV 09/07/24 07:45 09/10/24 00:45 2 MG Nitroglycerin 0.4 mg Q5MINP PRN SL 09/07/24 07:45 Furosemide 20 mg BIDD IV 09/07/24 18:00 09/11/24 06:36 20 MG Famotidine 20 mg DAILY IV 09/08/24 10:00 09/11/24 10:55 20 MG Lorazepam 0.5 mg Q6HP PRN IV 09/07/24 07:45 09/10/24 21:43 0.5 MG Diagnostic Test (Pha) 1 strip Q6HR 09/07/24 12:00 09/11/24 06:00 1 STRIP Insulin Human Regular Q6HR SC 09/07/24 12:00 09/11/24 06:00 6 UNITS Dextrose 50 ml UD PRN IV 09/07/24 07:45 Azithromycin 250 ml @ 125 mls/hr DAILY IV 09/07/24 10:00 09/11/24 10:55 125 MLS/HR Metoprolol Succinate 25 mg DAILY PO 09/08/24 10:00 09/10/24 10:49 25 MG Empaglifozin 10 mg DAILY PO 09/08/24 10:00 09/10/24 10:50 10 MG Sacubitril/ Valsartan 1 tab BID PO 09/07/24 22:00 09/10/24 21:44 1 TAB Pantoprazole Sodium 40 mg BID IV 09/07/24 22:00 Hold 09/10/24 10:48 40 MG Methylprednisolone Sodium Succinate 40 mg Q8HR IV 09/08/24 22:00 09/11/24 06:36 40 MG Ceftriaxone Sodium 50 ml @ 100 mls/hr DAILY@09 IV 09/09/24 09:00 09/11/24 10:54 100 MLS/HR Azithromycin 250 ml @ 125 mls/hr DAILY IV 09/09/24 10:00 Cancel Guaifenesin/ Dextromethorphan 10 ml Q6HPRN PRN PO 09/10/24 13:00 09/10/24 14:46 10 ML Albuterol 2.5 mg Q4HR NEB 09/10/24 14:00 09/11/24 09:57 2.5 MG Ipratropium [place] 0.5 mg Q4HR NEB 09/10/24 14:00 09/11/24 09:57 0.5 MG Laboratory Results Laboratory Tests 09/09/24 06:48 Urinalysis Test 09/07/24 06:23 Urine Color Light-yellow (Yellow) Urine Clarity Clear (Clear) Urine pH 6.5 (5.0-9.0) Urine Specific [place] 1.017 (1.001-1.035) Urine Protein Negative (Negative) Urine Ketones Negative (Negative) Urine Blood Negative /uL (Negative) Urine Nitrite Negative (Negative) Urine Bilirubin Negative (Negative) Urine Urobilinogen Normal mg/dL (Negative) Urine Leukocyte Esterase Negative /uL (Negative) Urine RBC <1 /hpf (0 - 4) Urine Microscopic WBC < 1 /HPF (0-5) Urine Squamous Epithelial Cells Few /hpf (<5) Urine Bacteria None seen /hpf (None Seen) Urine Mucus Few (None Seen) Urine Glucose 2+ mg/dL (Normal) H Microbiology Microbiology Date/Time Source Procedure Growth Status 09/07/24 22:00 Nose MRSA Screen - Final Complete Assessment/Plan Assessment/Plan Acute on Chronic hypoxic Respiratory Failure CHF & COPD Exacerbation Atrial Fibrillation CAD Diabetes Mellitus type 2 uncontrolled Systolic CHF with exacerbation (EF 25-30%) Hyperlipidemia COPD on home O2 4l nc Anemia Pneumonia (recent) hx of intubation x2 last 07/2024 Continuing current management. Downgrade the patient to telemetry. Continuing with BiPAP as needed. Appreciate Maritime Guard input. Continuing sliding scale insulin. Continuing with Eliquis. Continuing with IV Lasix. Continuing with nebulizer. Continuing with Solu-Medrol. Continuing with oxygen titrate to keep saturation oxygen above 92%. We will empirically start IV antibiotic with Rocephin and Zithromax. This medical document was created using an electronic medical record system with [employer] computerized dictation system. Although this document has been carefully reviewed, there may still be some phonetic and typographical errors. These areas are purely typographical due to imperfections of the software programs, and do not reflect any compromise in the patient's medical care. My Orders Orders - SHRUTI DAVID MD Procedure Category Date Status Time Guaifenesin-Dextromet PHA 09/10/24 In Process Liquid (Robitussin 13:00 Albuterol Medneb PHA 09/10/24 In Process (Ventolin Medneb) 14:00 Ipratropium Medneb PHA 09/10/24 In Process (Atrovent Medneb) 14:00 SHRUTI DAVID MD Sep 11, 2024 11:49
--- NOTE | 2024-09-11 12:26 | DVHPN2 ---
Progress Note Date Seen: Sep 11, 2024 Resident Creating Document: CHRISTINA GOOD RESIDENT Has the PT tested + for MRSA If YES, has PT been informed?: No Medical Necessity Reason Pt with a Central, PICC or Fol: No Subjective Review of Systems Patient was seen and evaluated in follow up. Patient has no new complaints at this time. Patient denies any symptoms. Review of Systems: HEENT:Normal, CVS:Normal, RESPIRATORY:Normal, :Normal, NEURO:Normal Objective vital signs Vital Sign Date Time Temp Pulse Resp B/P (MAP) Pulse Ox O2 Delivery O2 Flow Rate FiO2 09/11/24 10:07 69 16 100 09/11/24 09:00 97.8 107/59 (75) 97.8 09/11/24 08:00 Nasal Cannula* 3 32 Total Intake and Output 09/10/24 09/10/24 09/11/24 15:00 23:00 07:00 Intake Total 300 ml 500 ml 300 ml Output Total 700 ml 1100 ml Balance 300 ml -200 ml -800 ml medications Current Medications Medications Dose Ordered Sig/Jeanne Route Start Time Stop Time Status Last Admin Dose Admin Amiodarone HCl 200 mg DAILY PO 09/07/24 10:00 09/11/24 10:55 200 MG Apixaban 5 mg BID PO 09/07/24 10:00 09/11/24 10:56 5 MG Atorvastatin Calcium 40 mg HS PO 09/07/24 22:00 09/10/24 21:45 40 MG Clopidogrel Bisulfate 75 mg DAILY PO 09/07/24 10:00 09/10/24 10:49 75 MG Melatonin 5 mg HS PRN PO 09/07/24 07:45 Montelukast Sodium 10 mg HS PO 09/07/24 22:00 09/10/24 21:45 10 MG Ondansetron HCl 4 mg Q4HP PRN IV 09/07/24 07:45 09/10/24 00:24 4 MG Docusate Sodium 100 mg BIDPRN PRN PO 09/07/24 07:45 Morphine Sulfate 2 mg Q4HPRN PRN IV 09/07/24 07:45 09/10/24 00:45 2 MG Nitroglycerin 0.4 mg Q5MINP PRN SL 09/07/24 07:45 Furosemide 20 mg BIDD IV 09/07/24 18:00 09/11/24 06:36 20 MG Famotidine 20 mg DAILY IV 09/08/24 10:00 09/11/24 10:55 20 MG Lorazepam 0.5 mg Q6HP PRN IV 09/07/24 07:45 09/10/24 21:43 0.5 MG Diagnostic Test (Pha) 1 strip Q6HR 09/07/24 12:00 09/11/24 12:03 1 STRIP Insulin Human Regular Q6HR SC 09/07/24 12:00 09/11/24 12:03 10 UNITS Dextrose 50 ml UD PRN IV 09/07/24 07:45 Azithromycin 250 ml @ 125 mls/hr DAILY IV 09/07/24 10:00 09/11/24 10:55 125 MLS/HR Metoprolol Succinate 25 mg DAILY PO 09/08/24 10:00 09/10/24 10:49 25 MG Empaglifozin 10 mg DAILY PO 09/08/24 10:00 09/10/24 10:50 10 MG Sacubitril/ Valsartan 1 tab BID PO 09/07/24 22:00 09/10/24 21:44 1 TAB Pantoprazole Sodium 40 mg BID IV 09/07/24 22:00 Hold 09/10/24 10:48 40 MG Methylprednisolone Sodium Succinate 40 mg Q8HR IV 09/08/24 22:00 09/11/24 06:36 40 MG Ceftriaxone Sodium 50 ml @ 100 mls/hr DAILY@09 IV 09/09/24 09:00 09/11/24 10:54 100 MLS/HR Azithromycin 250 ml @ 125 mls/hr DAILY IV 09/09/24 10:00 Cancel Guaifenesin/ Dextromethorphan 10 ml Q6HPRN PRN PO 09/10/24 13:00 09/10/24 14:46 10 ML Albuterol 2.5 mg Q4HR NEB 09/10/24 14:00 09/11/24 09:57 2.5 MG Ipratropium [place] 0.5 mg Q4HR NEB 09/10/24 14:00 09/11/24 09:57 0.5 MG Examination: GENERAL:Normal, HEENT:Normal, NECK:Normal, LUNGS:Normal, CVS:Normal, ABDOMEN:Normal, MSK:Normal, NEURO:Normal laboratory and microbiology Laboratory Tests 09/09/24 06:48 Test 09/09/24 06:48 Range/Units Serum Glucose 239 H 74-106 mg/dL Microbiology Date/Time Source Procedure Growth Status 09/07/24 22:00 Nose MRSA Screen - Final Complete Problem List/Assessment/Plan Problem List/Assessment/Plan acute exacerbation of copd pneumonia hypoxemic resp failre fluid retention events none resting comfortably improving management continue supportive care Stable to Discharge Case discussed with Dr Persaud Plan discussed with: Patient Dietary Evaluation Review Comments: 1. Continue CHO 60 gm, Cardiac diet as tolerated 2. Noted hyperglycemia due to steroids, adjust ss insulin to maintain BG <180 mg/dl 3. Will add trial of Glucerna daily to enhance PO given variable intakes (provides 220 kcal, 10 gm pro per carton) Expected Outcomes/Goals: Improved nutritional status, good glycemic control. Date of Service: Sep 11, 2024 Billing Provider: RONALD PERSAUD MD Common Visit Codes: NOT BILLABLE CHRISTINA GOOD RESIDENT Sep 11, 2024 12:26 RONALD PERSAUD MD September 14, 2024 14:47
[2024-09-11] MEDS ORDERED: METO25TA36 PO (13:22)
[2024-09-11] MEDS ORDERED: AZIT-74 PO (13:24)
[2024-09-11] MEDS ORDERED: METH4PAK PO (13:24)
[2024-09-11] MEDS ORDERED: SACU1TAB PO (13:24)
--- NOTE | 2024-09-11 13:25 | DVHDS2 ---
Discharge Summary Date of Admission Sep 07, 2024 at 07:32 Date of Discharge: Sep 11, 2024 Labs/Diagnostic Data: Laboratory Results Test 09/11/24 11:24 09/09/24 06:48 09/08/24 04:21 09/07/24 13:15 POC Glucose 397 mg/dl (70-106) White Blood Count 6.5 10^3/uL (4.4-10.8) Red Blood Count 3.30 10^6/uL (4.0-5.20) Hemoglobin 9.6 g/dL (12.2-16.2) Hematocrit 29.8 % (36.0-46.0) Mean Corpuscular Volume 90.4 fL (80.0-100.0) Mean Corpuscular Hemoglobin 29.2 pg (28.0-32.0) Mean Corpuscular Hemoglobin Concent 32.3 g/dL (32.0-36.0) Red Cell Distribution Width 16.5 % (11.8-14.3) Platelet Count 177 10^3/uL (140-450) Mean Platelet Volume 8.7 fL (6.9-10.8) Neutrophils (%) (Auto) 90.6 % (37.0-80.0) Lymphocytes (%) (Auto) 6.2 % (10.0-50.0) Monocytes (%) (Auto) 3.1 % (0.0-12.0) Eosinophils (%) (Auto) 0.0 % (0.0-7.0) Basophils (%) (Auto) 0.1 % (0.0-2.0) Neutrophils # (Auto) 5.9 10 ^3/uL (1.6-8.6) Lymphocytes # (Auto) 0.4 10 ^3/uL (0.4-5.4) Monocytes # (Auto) 0.2 10 ^3/uL (0-1.3) Eosinophils # (Auto) 0 10 ^3/uL (0-0.8) Basophils # (Auto) 0 10 ^3/uL (0-0.2) Nucleated Red Blood Cells 0.1 % Sodium Level 143 mmol/L (136-145) Potassium Level 4.3 mmol/L (3.5-5.1) Chloride Level 103 mmol/L (98-107) Carbon Dioxide Level 32 mmol/L (20-31) Anion Gap 8 (5-15) Blood Urea Nitrogen 40 mg/dL (9-23) Creatinine 1.41 mg/dL (0.550-1.02) Glomerular Filtration Rate Calc 41 mL/min (>90) BUN/Creatinine Ratio 28.4 (10.0-20.0) Serum Glucose 239 mg/dL (74-106) Calcium Level 9.8 mg/dL (8.7-10.4) Magnesium Level 2.2 mg/dL (1.6-2.6) Total Bilirubin 1.0 mg/dL (0.2-1.0) Aspartate Amino Transferase (AST) 16 U/L (13-40) Alanine Aminotransferase (ALT) 16 U/L (7-40) Alkaline Phosphatase 69 U/L (46-116) Total Protein 6.9 g/dL (5.7-8.2) Albumin 4.4 g/dL (3.2-4.8) Lactic Acid Level 1.4 mmol/L (0.4-2.0) Test 09/07/24 08:57 09/07/24 07:10 09/07/24 06:23 09/07/24 03:37 Blood Gas Specimen Type Arterial Blood Gas Sample Site Right brachial Blood Gas Patient Temperature 37.0 Arterial Blood Date Drawn [id number] Arterial Blood pH 7.444 (7.350-7.450) Arterial Blood Partial Pressure CO2 41.9 mmHg (32.0-45.0) Arterial Blood Partial Pressure O2 130.0 mmHg (83.0-108.0) Arterial Blood HCO3 28.1 mmol/L (21.0-28.0) Arterial Blood Oxygen Saturation 98.6 % (94.0-98.0) Arterial Blood Base Excess 3.7 mmol/L (-2.0-3.0) Arterial Blood Oxyhemoglobin 97.5 % (94.0-98.0) Arterial Blood Carboxyhemoglobin 0.2 % (0.5-1.5) Arterial Blood Methemoglobin 0.9 % (0.0-1.5) Raciel Test N/a Blood Gas Total Hemoglobin 9.70 g/dL (12.0-16.0) Blood Gas Set Respiration Rate 14.0 Blood Gas Modality Mask - bipap Blood Gas Spontaneous Rate 29 FiO2 % 45.0 Blood Gas Spontaneous Tidal Volume 582 Blood Gas EPAP 5 Blood Gas IPAP 12 Troponin I High Sensitivity 39 ng/L (</=34) Urine Color Light-yellow (Yellow) Urine Clarity Clear (Clear) Urine pH 6.5 (5.0-9.0) Urine Specific [place] 1.017 (1.001-1.035) Urine Protein Negative (Negative) Urine Ketones Negative (Negative) Urine Blood Negative /uL (Negative) Urine Nitrite Negative (Negative) Urine Bilirubin Negative (Negative) Urine Urobilinogen Normal mg/dL (Negative) Urine Leukocyte Esterase Negative /uL (Negative) Urine RBC <1 /hpf (0 - 4) Urine Microscopic WBC < 1 /HPF (0-5) Urine Squamous Epithelial Cells Few /hpf (<5) Urine Bacteria None seen /hpf (None Seen) Urine Mucus Few (None Seen) Urine Glucose 2+ mg/dL (Normal) Prothrombin Time 10.8 sec (9.3-11.8) Prothrombin Time INR 1.02 (0.9-1.15) Activated Partial Thromboplast Time 26.5 SEC (24.5-34.5) Hemoglobin A1c 6.3 % A1C (<5.7) B-Type Natriuretic Peptide 679.10 pg/mL (0-100) Triglycerides Level 94 mg/dL (< 150) Cholesterol Level 115 mg/dL (< 200) LDL Cholesterol 83 mg/dL (< 100) HDL Cholesterol 23 mg/dL (40-59) Thyroid Stimulating Hormone (TSH) 0.39 uIU/mL (0.55-4.78) Other Laboratory Tests 09/09/24 06:48 Final Diagnosis/Problems List shortness of breath Discharge Disposition: Home Discharge Instruct/Medications Diet: Cardiac 2g Na,low cholest Activity: No Restrictions, As Tolerated Follow Up/Referral: pcp 1-2 weeks Medications: See med list Discharge Statement: "Patient was advised to return to the ER or call 911 if any headaches, dizziness, shortness of breath, chest pain, abdominal pain, bleeding, fevers, or worsening of medical condition. Patient was counseled about treatment plan, medications, possible side effects, patientverbalized understanding. All questions were answered to the best of my ability. This discharge took greater then 30 minutes in planning, reviewing documentation, counseling the patient, and discussing with other team members." ASSESSMENT ASSESSMENT Assessment shortness of breath SHRUTI DAVID MD Sep 11, 2024 13:25
--- NOTE | 2024-09-11 23:12 | DVHPN2 ---
Progress Note - Dictate Date Seen: Sep 11, 2024 Has the PT tested + for MRSA If YES, has PT been informed?: No Medical Necessity Reason Pt with a Central, PICC or Fol: No Subjective Patient was seen and evaluated in follow up. Patient has no new complaints at this time. Patient denies any cardiac symptoms. Patient is cardiac stable for discharge. Telemetry reviewed. vital signs Vital Sign Date Time Temp Pulse Resp B/P (MAP) Pulse Ox O2 Delivery O2 Flow Rate FiO2 09/11/24 10:07 69 16 100 09/11/24 09:00 97.8 107/59 (75) 97.8 09/11/24 08:00 Nasal Cannula* 3 32 Total Intake and Output 09/10/24 09/10/24 09/11/24 15:00 23:00 07:00 Intake Total 300 ml 500 ml 300 ml Output Total 700 ml 1100 ml Balance 300 ml -200 ml -800 ml medications Current Medications Medications Dose Ordered Sig/Jeanne Route Start Time Stop Time Status Last Admin Dose Admin Amiodarone HCl 200 mg DAILY PO 09/07/24 10:00 09/11/24 10:55 200 MG Apixaban 5 mg BID PO 09/07/24 10:00 09/11/24 10:56 5 MG Atorvastatin Calcium 40 mg HS PO 09/07/24 22:00 09/10/24 21:45 40 MG Clopidogrel Bisulfate 75 mg DAILY PO 09/07/24 10:00 09/10/24 10:49 75 MG Melatonin 5 mg HS PRN PO 09/07/24 07:45 Montelukast Sodium 10 mg HS PO 09/07/24 22:00 09/10/24 21:45 10 MG Ondansetron HCl 4 mg Q4HP PRN IV 09/07/24 07:45 09/10/24 00:24 4 MG Docusate Sodium 100 mg BIDPRN PRN PO 09/07/24 07:45 Morphine Sulfate 2 mg Q4HPRN PRN IV 09/07/24 07:45 09/10/24 00:45 2 MG Nitroglycerin 0.4 mg Q5MINP PRN SL 09/07/24 07:45 Furosemide 20 mg BIDD IV 09/07/24 18:00 09/11/24 06:36 20 MG Famotidine 20 mg DAILY IV 09/08/24 10:00 09/11/24 10:55 20 MG Lorazepam 0.5 mg Q6HP PRN IV 09/07/24 07:45 09/10/24 21:43 0.5 MG Diagnostic Test (Pha) 1 strip Q6HR 09/07/24 12:00 09/11/24 12:03 1 STRIP Insulin Human Regular Q6HR SC 09/07/24 12:00 09/11/24 12:03 10 UNITS Dextrose 50 ml UD PRN IV 09/07/24 07:45 Azithromycin 250 ml @ 125 mls/hr DAILY IV 09/07/24 10:00 09/11/24 10:55 125 MLS/HR Metoprolol Succinate 25 mg DAILY PO 09/08/24 10:00 09/10/24 10:49 25 MG Empaglifozin 10 mg DAILY PO 09/08/24 10:00 09/10/24 10:50 10 MG Sacubitril/ Valsartan 1 tab BID PO 09/07/24 22:00 09/10/24 21:44 1 TAB Pantoprazole Sodium 40 mg BID IV 09/07/24 22:00 Hold 09/10/24 10:48 40 MG Methylprednisolone Sodium Succinate 40 mg Q8HR IV 09/08/24 22:00 09/11/24 06:36 40 MG Ceftriaxone Sodium 50 ml @ 100 mls/hr DAILY@09 IV 09/09/24 09:00 09/11/24 10:54 100 MLS/HR Azithromycin 250 ml @ 125 mls/hr DAILY IV 09/09/24 10:00 Cancel Guaifenesin/ Dextromethorphan 10 ml Q6HPRN PRN PO 09/10/24 13:00 09/10/24 14:46 10 ML Albuterol 2.5 mg Q4HR NEB 09/10/24 14:00 09/11/24 09:57 2.5 MG Ipratropium [place] 0.5 mg Q4HR NEB 09/10/24 14:00 09/11/24 09:57 0.5 MG objective GENERAL: Alert and oriented x 3. No acute distress. Morbidly obese. EYES: PERRL, EOMI. Anicteric. HENT: Moist mucous membranes. LUNGS: Diminished breath sounds. CARDIOVASCULAR: Regular rate and rhythm. ABDOMEN: Soft, nontender and nondistended. EXTREMITIES: Right lower extremity 3+ pitting edema, left lower extremity 2+ pitting edema. NEUROLOGIC: No focal neurological deficits. SKIN: Warm, dry. laboratory and microbiology Laboratory Tests 09/09/24 06:48 Test 09/09/24 06:48 Range/Units Serum Glucose 239 H 74-106 mg/dL Problem List Acute on chronic decompensated HFrEF, NYHA class III. Acute hypoxic respiratory failure. Pneumonia. NSTEMI, likely type II secondary to above. Coronary artery disease status post multiple PTCAs x 4 JOE (on ASA). Paroxysmal atrial fibrillation (on amiodarone and Eliquis). Hypertension. Dyslipidemia. COPD with home O2. History of tobacco use. Type 2 diabetes mellitus. Morbid obesity. Assessment/Plan Continued all current supportive medical care. Amiodarone. Eliquis. Lipitor, Plavix, Metoprolol. IV antibiotics as ordered. Diuretics with Lasix. GI prophylactics. Entresto. Morphine for pain management. Additional plan as per the hospital course. Dietary Evaluation Review Comments: 1. Continue CHO 60 gm, Cardiac diet as tolerated 2. Noted hyperglycemia due to steroids, adjust ss insulin to maintain BG <180 mg/dl 3. Will add trial of Glucerna daily to enhance PO given variable intakes (provides 220 kcal, 10 gm pro per carton) Expected Outcomes/Goals: Improved nutritional status, good glycemic control. Plan discussed with: Patient HUMBLE MCCAIN MD Sep 11, 2024 13:06
[2024-09-12] MEDS ORDERED: EMPA1TAB PO (11:41)
== END 2024-09-11 17:30 | disposition home or self-care (01) | DRG 280 ==
LOC: ER 03:15 → EDBD 03:15 → OVERFLOW 07:32 → TELE-EAST 09-08 15:21
PROVIDERS: ADMIT Internal Medicine; ATTEND Internal Medicine
PROC: 5A09357 Assistance with Respiratory Ventilation, Less than 24 Consecutive Hours, Continuous Positive Airway Pressure (ICD-10-PCS; principal; 2024-09-07)
PROC: 05HD33Z Insertion of Infusion Device into Right Cephalic Vein, Percutaneous Approach (ICD-10-PCS; 2024-09-09)
PROC: B54MZZA Ultrasonography of Right Upper Extremity Veins, Guidance (ICD-10-PCS; 2024-09-09)
DX: I11.0 Hypertensive heart disease with heart failure (principal); I50.23 Acute on chronic systolic (congestive) heart failure; I21.A1 Myocardial infarction type 2; J96.21 Acute and chronic respiratory failure with hypoxia; J44.1 Chronic obstructive pulmonary disease with (acute) exacerbation; J44.0 Chronic obstructive pulmonary disease with (acute) lower respiratory infection; Z68.41 Body mass index [BMI] 40.0-44.9, adult; D64.9 Anemia, unspecified; E66.01 Morbid (severe) obesity due to excess calories; I25.10 Atherosclerotic heart disease of native coronary artery without angina pectoris; I48.0 Paroxysmal atrial fibrillation; E78.5 Hyperlipidemia, unspecified; I44.0 Atrioventricular block, first degree; E11.9 Type 2 diabetes mellitus without complications; Z99.81 Dependence on supplemental oxygen; Z87.891 Personal history of nicotine dependence; Z82.5 Family history of asthma and other chronic lower respiratory diseases; Z82.49 Family history of ischemic heart disease and other diseases of the circulatory system; Z83.3 Family history of diabetes mellitus; Z79.01 Long term (current) use of anticoagulants; Z79.84 Long term (current) use of oral hypoglycemic drugs; Z79.899 Other long term (current) drug therapy
CPT/HCPCS: 36415; 36600; 71045; 80048; 80053; 80061; 81001; 82805; 82962; 83036; 83605; 83735; 83880; 84443; 84484; 85025; 85610; 85730; 87081; 93005; 94640; 94660; 96374; 99291; G0378; J1815; J2405; J2470; J3490

== ENCOUNTER 2024-11-06 14:50 | Inpatient (IN) | payer OTHER, MEDICAID ==
[~2024-11-06] VITALS: Ht 30.5 cm; Wt 96.9 kg
[~2024-11-06 14:50] MED LIST changes: +AZIT-74 PO; +EMPA1TAB PO; +METH4PAK PO; +METO25TA36 PO; +SACU1TAB PO
--- NOTE | 2024-11-06 15:11 | ED.PDOC ---
SOB-HPI HPI Comments This is a 63 year old female brought in by daughter presenting to the ED with chief complaint of SOB. Patient reports that she started to experience SOB yesterday, but it had self resolved until this morning where it returned. Patient relays that she took her breathing treatment, but had no relief in her symptoms and came in for further treatment. Patient states her last treatment was 30 minutes prior to arrival. Patient notes that she has been intubated twice in the past. Patient denies any chest pain, cough, dizziness, fever, chills, N/V, hemoptysis, or headache. Time Seen by MD: 15:07 Primary Care Provider: UNKNOWN Reviewed notes: Nurses Notes, Medications, Allergies Information Source: Patient, Relative (Daughters) Mode of Arrival: Wheelchair Severity: Moderate Timing: Hours Duration: Since onset Context: At Rest PE Risk Factors: None History of: Asthma, COPD, CHF, Anxiety, Intubation Prehospital treatment: Breathing Tx, Oxygen Modifying Factors: Nothing Past Medical History PAST MEDICAL HISTORY: Anxiety, Asthma, CAD, CHF, COPD, DM, High Lipids, HTN, AL Surgical History: Hernia Repair, PTCA, Tonsillectomy, Tubal Ligation Surgical History (Other): Cataract surgery, Left knee surgery TERRAZZO FINISHER History: Denies all TERRAZZO FINISHER Hx, Unknown Family History Family History: Reviewed,noncontributory to illness, Family hx of DM, Family hx of heart matias, Family hx of HTN, Family hx of lung matias Social History Smoker: Secondhand Alcohol: Denies ETOH Use Drugs: Denies Drug Use Lives In: Home Constitutional: denies: chills, diaphoresis, fatigue, fever, malaise, sweats, weakness, others EENTM: denies: blurred vision, double vision, ear bleeding, ear discharge, ear drainage, ear pain, ear ringing, eye pain, eye redness, hearing loss, mouth pain, mouth swelling, nasal discharge, nose bleeding, nose congestion, nose pain, photophobia, tearing, throat pain, throat swelling, voice changes, others Respiratory: reports: shortness of breath; denies: cough, hemoptysis, orthopnea, SOB at rest, SOB with excertion, stridor, wheezing, others Cardiovascular: denies: chest pain, dizzy spells, diaphoresis, Dyspnea on exertion, edema, irregular heart beat, left arm pain, lightheadedness, palpitations, PND, syncope, others Gastrointestinal: denies: abdomen distended, abdominal pain, blood streaked bowels, constipated, diarrhea, dysphagia, difficulty swallowing, hematemesis, melena, nausea, poor appetite, poor fluid intake, rectal bleeding, rectal pain, vomiting, others Genitourinary: denies: abnormal vagina bleeding, burning, dyspareunia, dysuria, flank pain, frequency, hematuria, incontinence, pain, , vagina discharge, urgency, others Neurological: denies: dizziness, fainting, headache, left sided numbness, left sided weakness, numbness, paresthesia, pre-existing deficit, right sided numbness, right sided weakness, seizure, speech problems, tingling, tremors, weakness, others Musculoskeletal: denies: back pain, gout, joint pain, joint swelling, muscle pain, muscle stiffness, neck pain, others Integumetry: denies: bruises, change in color, change in hair/nails, dryness, laceration, lesions, lumps, rash, wounds, others Allergic/Immunocompromised: denies: Difficulty Healing, Frequent Infections, Hives, Itching, others Hematologic/Lymphatic: denies: anemia, blood clots, easy bleeding, easy bruising, swollen glands, others Endocrine: denies: excessive hunger, excessive sweating, excessive thirst, excessive urination, flushing, intolerance to cold, intolerance to heat, unexplained weight gain, unexplained weight loss, others Psychiatric: denies: anxiety, bipolar disorder, depression, hopeless, panic disorder, schizophrenia, sleepless, suicidal, others All Other Systems: Reviewed and Negative Physical Exam General Appearance: Moderate Distress HEENT: Normal ENT Inspection, Pharynx Normal, TMs Normal Neck: Full Range of Motion, Non-Tender, Normal, Normal Inspection Respiratory: Chest Non-Tender, Decreased Breath Sounds, No Accessory Muscle Use, Respiratory Distress, Wheezing Cardiovascular: No Edema, No JVD, No Murmur, No Gallop, Normal Peripheral Pulses, Regular Rate/Rhythm Breast Exam: Deferred Gastrointestinal: No Organomegaly, Non Tender, No Pulsatile Mass, Normal Bowel Sounds, Soft Genitalia: Deferred Pelvic: Deferred Rectal: Deferred Extremities: No calf tenderness, Normal capillary refill, Normal inspection, Normal range of motion, Non-tender, No pedal edema Musculoskeletal : Apperance: Normal Neurologic: Alert, marketing information manager II-XII nml as Tested, No Motor Deficits, Normal Affect, Normal Mood, No Sensory Deficits Cerebellar Function: Normal Reflexes: Normal Skin: Dry, Normal Color, Warm Lymphatic: No Adenopathy Was a procedure done? Was a procedure done?: No Differential Dx Differential Diagnosis: Asthma, Bronchitis, CHF, COPD, Pneumonia X-Ray, Labs, Meds, VS Vital Signs Date Time Temp Pulse Resp B/P (MAP) Pulse Ox O2 Delivery O2 Flow Rate FiO2 11/06/24 17:08 98.7 71 20 188/54 (98) 97 98.7 11/06/24 17:08 71 20 97 Nasal Cannula* 2 28 11/06/24 15:49 18 99 Nasal Cannula* 2 28 11/06/24 15:30 71 11/06/24 14:52 26 96 Nasal Cannula 3.0 11/06/24 14:52 98.6 84 26 143/63 (89) 93 98.6 Lab Test 11/06/24 18:30 11/06/24 16:32 11/06/24 15:26 Range/Units Troponin I High Sensitivity 27 19 20 </=34 ng/L White Blood Count 6.0 4.4-10.8 10^3/uL Red Blood Count 3.88 L 4.0-5.20 10^6/uL Hemoglobin 11.0 L 12.2-16.2 g/dL Hematocrit 34.0 L 36.0-46.0 % Mean Corpuscular Volume 87.5 80.0-100.0 fL Mean Corpuscular Hemoglobin 28.3 28.0-32.0 pg Mean Corpuscular Hemoglobin Concent 32.4 32.0-36.0 g/dL Red Cell Distribution Width 16.4 H 11.8-14.3 % Platelet Count 103 L 140-450 10^3/uL Mean Platelet Volume 9.3 6.9-10.8 fL Neutrophils (%) (Auto) 84.3 H 37.0-80.0 % Lymphocytes (%) (Auto) 9.2 L 10.0-50.0 % Monocytes (%) (Auto) 4.3 0.0-12.0 % Eosinophils (%) (Auto) 1.6 0.0-7.0 % Basophils (%) (Auto) 0.6 0.0-2.0 % Neutrophils # (Auto) 5.1 1.6-8.6 10 ^3/uL Lymphocytes # (Auto) 0.6 0.4-5.4 10 ^3/uL Monocytes # (Auto) 0.3 0-1.3 10 ^3/uL Eosinophils # (Auto) 0.1 0-0.8 10 ^3/uL Basophils # (Auto) 0 0-0.2 10 ^3/uL Nucleated Red Blood Cells 0.0 % Sodium Level 148 H 136-145 mmol/L Potassium Level 3.3 L 3.5-5.1 mmol/L Chloride Level 110 H 98-107 mmol/L Carbon Dioxide Level 29 20-31 mmol/L Anion Gap 9 5-15 Blood Urea Nitrogen 17 9-23 mg/dL Creatinine 0.89 0.550-1.02 mg/dL Glomerular Filtration Rate Calc 72 >90 mL/min BUN/Creatinine Ratio 19.1 10.0-20.0 Serum Glucose 103 74-106 mg/dL Calcium Level 9.6 8.7-10.4 mg/dL B-Type Natriuretic Peptide 824.85 0-100 pg/mL Current Medications Medications (Trade) Dose Ordered Sig/Jeanne Route Start Time Stop Time Status Last Admin Methylprednisolone Sodium Succinate (Solu Medrol) 125 mg ONCE ONCE IV 11/06/24 15:15 11/06/24 15:16 DC 11/06/24 16:55 Ipratropium [place] (Atrovent Medneb) 1 mg ONCE ONCE [facility] 11/06/24 15:15 11/06/24 15:16 DC 11/06/24 15:49 Albuterol (Ventolin Medneb) 10 mg ONCE ONCE N 11/06/24 15:15 11/06/24 15:16 DC 11/06/24 15:49 The chest x-ray is negative for any infiltrates The patient was given a breathing treatment of albuterol and Atrovent and given Solu-Medrol 125 mg IV push The BNP is 824.85 The patient's chemistry panel shows a potassium of 3.3 but otherwise within normal limits The patient's CBC is within normal limits The troponin level x3 is negative At this time the patient is still complaining of some shortness for breath The patient is up for admission believe we are ordering another breathing treatment of albuterol and Atrovent The patient is admitted at this time Images Reviewed?: Images reviewed and evaluated by me Time of 1ST Reevaluation: 19:51 Reevaluation 1ST: Unchanged Patient Education/Counseling: Diagnosis, Treatment, Prognosis Family Education/Counseling: Diagnosis, Treatment, Prognosis Additional Information Reviewed patient's previous visit(s): 09/07/24 for COPD exacerbation The following tests were ordered, and results were reviewed by me: CBC, BMP, UA, Troponin, BNP, EKG Additional information was gathered from interviewing the following independent historian: Daughters I reviewed and agreed with the following test results read by other provider: None I discussed treatments and results with medical personnel and: PATIENT and daughters Comprehensive systems review obtained and negative except for what is stated in the HPI. SEPSIS Sepsis Screen Physician Orders Urinalysis (11/06/24 15:07) Med Neb Initial Treatment (11/06/24 15:07) Heplock Iv (11/06/24 15:07) Pulse Oximetry (11/06/24 15:07) Protective Signal Superintendent (11/06/24 15:07) Blood Pressure (11/06/24 15:07) Electrocardigram (11/06/24 16:07) Electrocardigram (11/06/24 18:07) Chest Two Views Routine (11/06/24 16:03) Med Neb Initial Treatment (11/06/24 19:47) Albuterol Medneb (Ventolin Medneb) (11/06/24 20:00) Vital Signs Date Time Temp Pulse Resp B/P (MAP) Pulse Ox O2 Delivery O2 Flow Rate FiO2 11/06/24 17:08 98.7 71 20 188/54 (98) 97 98.7 11/06/24 17:08 71 20 97 Nasal Cannula* 2 28 11/06/24 15:49 18 99 Nasal Cannula* 2 28 11/06/24 15:30 71 11/06/24 14:52 26 96 Nasal Cannula 3.0 11/06/24 14:52 98.6 84 26 143/63 (89) 93 98.6 Laboratory Tests Test 11/06/24 15:26 White Blood Count 6.0 10^3/uL (4.4-10.8) Medications Medications Dose Ordered Sig/Jeanne Route Start Time Stop Time Status Last Admin Dose Admin Albuterol 10 mg ONCE ONCE HHN 11/06/24 15:15 11/06/24 15:16 DC 11/06/24 15:49 Ipratropium [place] 1 mg ONCE ONCE HHN 11/06/24 15:15 11/06/24 15:16 DC 11/06/24 15:49 Methylprednisolone Sodium Succinate 125 mg ONCE ONCE IV 11/06/24 15:15 11/06/24 15:16 DC 11/06/24 16:55 Departure 1 Departure Time of Disposition: 19:49 Impression: Primary Impression: Acute exacerbation of chronic obstructive pulmonary disease (COPD) Disposition: 09 ADMITTED INPATIENT Admit to: Tele Condition: Fair Critical Care Note Critical Care Time?: Yes (45 min-critical care time only) Stability Stability form required: Yes Unstable for transfer: Telemetry monitoring (Telemetry monitoring required), ED Physician Assesment (Clinical assesment) Heart Score Heart Score: Heart Score Response (Comments) Value History N/A 0 EKG N/A 0 Age N/A 0 Risk Factors N/A 0 Troponin N/A 0 Total 0 I personally scribed for MARLEN HAQUE MD ([email or web address]) on 11/06/24 at 15:11. Electronically submitted by Rolan Clark ([email or web address]). I personally scribed for MARLEN HAQUE MD ([email or web address]) on 11/06/24 at 15:12. Electronically submitted by Rolan Clark ([email or web address]). MARLEN HAQUE MD Nov 06, 2024 15:11
--- NOTE | 2024-11-06 15:33 | ECG ---
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
[2024-11-06 15:42] LABS: Basophils # (auto) 0 10 ^3/uL (0-0.2); Basophils % (auto) 0.6 % (0.0-2.0); Eosinophils # (auto) 0.1 10 ^3/uL (0-0.8); Eosinophils % (auto) 1.6 % (0.0-7.0); Lymphocytes # (auto) 0.6 10 ^3/uL (0.4-5.4); Lymphocytes % (auto) 9.2 % (10.0-50.0); Mean Corpuscular Hemoglobin 28.3 pg (28.0-32.0); Mean Corpuscular Hgb Conc. 32.4 g/dL (32.0-36.0); Mean Corpuscular Volume 87.5 fL (80.0-100.0); Monocytes # (auto) 0.3 10 ^3/uL (0-1.3); Monocytes % (auto) 4.3 % (0.0-12.0); Neutrophils # (auto) 5.1 10 ^3/uL (1.6-8.6); Neutrophils % (auto) 84.3 % (37.0-80.0); Platelet Count (auto) 103 10^3/uL (140-450); Red Blood Cells 3.88 10^6/uL (4.0-5.20); Red Cell Distribution Width 16.4 % (11.8-14.3)
[2024-11-06] MEDS: IPRATROPIUM BROM 0.5 MG/2.5ML INH SOL HHN ONE (15:49)
[2024-11-06] MEDS: ALBUTEROL SULF 2.5 MG/0.5ML(0.5%) NEB SOLN HHN ONE ×2 (15:49→20:30)
[2024-11-06 15:50] LABS: Anion Gap 9 (5-15); Calcium 9.6 mg/dL (8.7-10.4); Carbon Dioxide 29 mmol/L (20-31)
[2024-11-06 15:51] LABS: Chloride 110 mmol/L (98-107); Potassium 3.3 mmol/L (3.5-5.1); Sodium 148 mmol/L (136-145)
[2024-11-06 15:55] LABS: BUN/Creatinine Ratio 19.1 (10.0-20.0); Blood Urea Nitrogen 17 mg/dL (9-23); Glucose 103 mg/dL (74-106)
--- NOTE | 2024-11-06 16:35 | DVH ---
XY CHEST TWO VIEWS ROUTINE CLINICAL HISTORY: sob COMPARISON: None TECHNIQUE: Frontal and lateral view of the chest was obtained FINDINGS: Lines and Tubes: None Lungs: No focal consolidation. Pleura: No effusion. No pneumothorax. Cardiomediastinal contours: Unremarkable Bones: No acute osseous abnormality. IMPRESSION: No acute cardiopulmonary disease.
[2024-11-06] MEDS: methylPREDNISolone SOD SUCC 125 MG/2 ML VL IV ONE (16:55)
[2024-11-06 17:08] VITALS: PULSE 71; RESP 20; O2SAT 97
[2024-11-06] MEDS ORDERED: DEXTROSE (50%) 50ML SYRG IV PRN (20:15)
[2024-11-06] MEDS ORDERED: ONDANSETRON HCL 4 MG/2 ML VIAL IV PRN (20:15)
[2024-11-06 21:30] VITALS: O2SAT 98
[2024-11-06 21:57] VITALS: BP 156/71; PULSE 70; RESP 24; TEMP 99.2; O2SAT 98
--- NOTE | 2024-11-06 21:58 | DVHHP2 ---
History of Present Illness Reason for Visit: Shortness for breath History of Present Illness 63-year-old female with a history of COPD and congestive heart failure presents for evaluation of shortness for breath. The patient reports a two day history of worsening shortness for breath not being relieved by hearing inhalers and nebulizer at home. She also reports mild lower extremity swelling. No chest pain or palpitations. No cough or fever. No other acute complaints reported. Past Medical History COPD, congestive heart failure, CAD, asthma, diabetes mellitus, hypertension, mi, dyslipidemia Past Surgical History Tonsillectomy, tubal ligation, PTCA, hernia repair, left knee surgery Family History Diabetes mellitus, heart disease Smoke: No ALCOHOL: none Drugs: None Lives: with Family Review of Systems Review of Systems Review of systems are currently negative otherwise addressed in HPI. Allergies: Coded Allergies: NO KNOWN ALLERGIES (Unverified , 04/04/24) Medications Current Medications Medications Dose Ordered Sig/Jeanne Route Start Time Stop Time Status Last Admin Dose Admin Montelukast Sodium 10 mg HS PO 11/06/24 22:00 Empaglifozin 10 mg DAILY PO 11/07/24 10:00 Amiodarone HCl 200 mg DAILY PO 11/07/24 10:00 Albuterol 2.5 mg Q6HPRN PRN NEB 11/06/24 20:15 Ipratropium [place] 0.5 mg Q6HPRN PRN NEB 11/06/24 20:15 Isosorbide Mononitrate 60 mg DAILY PO 11/07/24 10:00 Metoprolol Tartrate 25 mg BID PO 11/06/24 22:00 Furosemide 40 mg DAILY PO 11/07/24 10:00 Sacubitril/ Valsartan 1 tab BID PO 11/06/24 22:00 Sacubitril/ Valsartan 1 tab BID PO 11/06/24 22:00 UNV Atorvastatin Calcium 20 mg HS PO 11/06/24 22:00 Clopidogrel Bisulfate 75 mg DAILY PO 11/07/24 10:00 Apixaban 5 mg BID PO 11/06/24 22:00 Diagnostic Test (Pha) 1 strip ACHS 11/06/24 22:00 Insulin Human Regular ACHS SC 11/06/24 22:00 Dextrose 50 ml UD PRN IV 11/06/24 20:15 Ondansetron HCl 4 mg Q4HP PRN IV 11/06/24 20:15 Acetaminophen 650 mg Q6HP PRN PO 11/06/24 20:15 Exam Vital Signs Vital Signs Date Time Temp Pulse Resp B/P (MAP) Pulse Ox O2 Delivery O2 Flow Rate FiO2 11/06/24 21:30 98 Nasal Cannula* 2 28 11/06/24 21:01 99.2 75 20 156/71 (99) 99.2 Exam Gen: 63-year-old female in mild distress Skin: Warm, dry, normal color and texture, no rash. HEENT: Normocephalic atraumatic, mucous membranes moist and pink. Neck: Cervical and supraclavicular nodes normal without enlargement, trachea is midline, thyroid gland is normal without masses. Pulmonary: Bilateral wheezing Cardiac: Regular rate and rhythm. No murmur Abdomen: Soft, nontender, nondistended, bowel sounds present all 4 quadrants, no guarding, no rigidity, no organomegaly. Extremities: No cyanosis, clubbing, no edema Neuro: Cranial nerves II through XII grossly intact, normal affect and speech, no focal motor deficits. Labs/Xrays ORDERING PHYSICIAN: SINGH SALMERON MD PROCEDURE(s): ECIDC - ECHO 2D MODE CARDIAC DOP REASON: EF ORDER NUMBER(s): [id number], ACCESSION NUMBER(s): [id number] APPROVED REPORT EXAM: Two-dimensional and M-mode echocardiogram with Doppler and color Doppler. Blood Pressure: 102/62 mmHg INDICATION EF RISK FACTORS Height: 5'1", Weight: 246 DIMENSIONS LVDd 4.9 (3.8-5.7cm) LA (2D) 5.0 (1.9-4.0cm) Aortic Root 2.8 (2.0- 3.7cm) LVDs 4.1 (2.5-4.0cm) LA (MM) (1.9-4.0cm) Aortic Cusp Exc 1.8 (1.5- 2.0cm) EF (%) 30.0 (55-70%) Rt. Atrium 3.9 (1.9-4.0cm) Asc. Aorta cm IVSd 1.5 (0.7-1.1cm) RV (D) (1.8-2.4cm) PWd 1.3 (0.7-1.1cm) Mitral Valve Mitral Mitral Stenosis E wave 1.07m/s MV Mean GR. mmHg A wave 0.87m/s MV Peak GR. mmHg E/A ratio 1.2 2D MVA cm2 DECEL Time 180ms PRESS 1/2 Time ms Aortic Valve Aortic Valve Aortic Stenosis V1 0.96m/s AO Mean GR. 5mmHg V2 1.49m/s AO Peak GR. 9mmHg LVOT Diameter 1.9 (1.8-2.4cm) Doppler LILIANA 1.83cm2 Pulmonic Valve V2 0.99m/s LEFT VENTRICLE The left ventricle is of normal size. Wall thickness is dnjf-it-vtcrntcqce increased. Ejection fraction is decreased and is estimated at 25-30% based on visual estimate. There is ahdyyyia-eg-lbxqou global hypokinesis. There is a grade II diastolic dysfunction. RIGHT VENTRICLE The right ventricle is of normal size. Right ventricular systolic function is normal. ATRIA The left atrium is severely dilated in size. The right atrium was of normal size. Not well visualized. MITRAL VALVE There is moderate to severe mitral annular calcification. There is mild central mitral regurgitation. There is mild mitral stenosis with a mean gradient of 5 mm Hg at a heart rate of 82 beats per minute. PULMONIC VALVE Likely normal. TRICUSPID VALVE Normal structure and function. There is trace tricuspid regurgitation. PA systolic pressure is not adequately estimated. AORTIC VALVE The leaflets are sclerotic. No significant stenosis or regurgitation. GREAT VESSELS Aortic root is of normal size. Proximal ascending aorta is not visualized. PERICARDIAL EFFUSION There is small pericardial effusion. IVC is dilated in size. Conclusion Normal left ventricular size with an ejection fraction of 25-30%. There is qfivcdsl-xm-ptbdir global hypokinesis of the left ventricle. Ltgw-og-fiymheuz concentric left ventricular hypertrophy. Normal right ventricular size and systolic function. Grade II diastolic dysfunction. Eskayeta-ar-tpyieo mitral annular calcification with mild mitral stenosis. Small pericardial effusion. PA systolic pressure is not adequately estimated. ORDERING PHYSICIAN: MARLEN HAQUE MD PROCEDURE(s): CXR2 - CHEST TWO VIEWS ROUTINE REASON: sob ORDER NUMBER(s): [id number], ACCESSION NUMBER(s): [id number] CHEST TWO VIEWS ROUTINE CLINICAL HISTORY: sob COMPARISON: None TECHNIQUE: Frontal and lateral view of the chest was obtained FINDINGS: Lines and Tubes: None Lungs: No focal consolidation. Pleura: No effusion. No pneumothorax. Cardiomediastinal contours: Unremarkable Bones: No acute osseous abnormality. IMPRESSION: No acute cardiopulmonary disease. Labs Test 11/06/24 18:30 11/06/24 15:26 Range/Units Troponin I High Sensitivity 27 </=34 ng/L White Blood Count 6.0 4.4-10.8 10^3/uL Red Blood Count 3.88 L 4.0-5.20 10^6/uL Hemoglobin 11.0 L 12.2-16.2 g/dL Hematocrit 34.0 L 36.0-46.0 % Mean Corpuscular Volume 87.5 80.0-100.0 fL Mean Corpuscular Hemoglobin 28.3 28.0-32.0 pg Mean Corpuscular Hemoglobin Concent 32.4 32.0-36.0 g/dL Red Cell Distribution Width 16.4 H 11.8-14.3 % Platelet Count 103 L 140-450 10^3/uL Mean Platelet Volume 9.3 6.9-10.8 fL Neutrophils (%) (Auto) 84.3 H 37.0-80.0 % Lymphocytes (%) (Auto) 9.2 L 10.0-50.0 % Monocytes (%) (Auto) 4.3 0.0-12.0 % Eosinophils (%) (Auto) 1.6 0.0-7.0 % Basophils (%) (Auto) 0.6 0.0-2.0 % Neutrophils # (Auto) 5.1 1.6-8.6 10 ^3/uL Lymphocytes # (Auto) 0.6 0.4-5.4 10 ^3/uL Monocytes # (Auto) 0.3 0-1.3 10 ^3/uL Eosinophils # (Auto) 0.1 0-0.8 10 ^3/uL Basophils # (Auto) 0 0-0.2 10 ^3/uL Nucleated Red Blood Cells 0.0 % Sodium Level 148 H 136-145 mmol/L Potassium Level 3.3 L 3.5-5.1 mmol/L Chloride Level 110 H 98-107 mmol/L Carbon Dioxide Level 29 20-31 mmol/L Anion Gap 9 5-15 Blood Urea Nitrogen 17 9-23 mg/dL Creatinine 0.89 0.550-1.02 mg/dL Glomerular Filtration Rate Calc 72 >90 mL/min BUN/Creatinine Ratio 19.1 10.0-20.0 Serum Glucose 103 74-106 mg/dL Calcium Level 9.6 8.7-10.4 mg/dL B-Type Natriuretic Peptide 824.85 0-100 pg/mL Assessment/Plan Assessment/Plan Assessment Acute on chronic hypoxic respiratory failure Acute on chronic congestive heart failure COPD exacerbation Diabetes mellitus Hypokalemia Accelerated hypertension Plan Admit the patient to telemetry to the hospitalist Onel brennan IV Lasix Resume home medications Continue treatment per orders. Plan discussed with: Patient My Orders Orders - MECHELLE LOPEZ Procedure Category Date Status Time Admit ADMIT 11/06/24 Transmitted 19:53 Montelukast Tablet PHA 11/06/24 In Process (Singulair Tablet) 22:00 Empagliflozin PHA 11/07/24 In Process (Jardiance) 10:00 Amiodarone Tablet PHA 11/07/24 In Process (Cordarone Tablet) 10:00 Albuterol Medneb PHA 11/06/24 In Process (Ventolin Medneb) 20:15 Ipratropium Medneb PHA 11/06/24 In Process (Atrovent Medneb) 20:15 Isosorbide PHA 11/07/24 In Process Mononitrate Tablet 10:00 Metoprolol Tartrate PHA 11/06/24 In Process Tablet (Lopressor Ta 22:00 Furosemide Tablet PHA 11/07/24 In Process (Lasix Tablet) 10:00 Sacubitril-Valsartan PHA 11/06/24 In Process (Entresto 24-26 Mg 22:00 Atorvastatin (Lipitor) PHA 11/06/24 In Process 22:00 Clopidogrel Bisulfate PHA 11/07/24 In Process (Plavix) 10:00 Apixaban (Eliquis) PHA 11/06/24 In Process 22:00 Basic Metabolic Panel LAB 11/07/24 Verified 04:00 Glucose Blood PHA 11/06/24 In Process (Accu-Chek Comfort 22:00 Insulin R (Human) PHA 11/06/24 In Process (Insulin R) 22:00 Dextrose 50% Syringe PHA 11/06/24 In Process 20:15 Ondansetron Hcl PHA 11/06/24 In Process (Zofran) 20:15 Cardiac DIET 11/07/24 Transmitted Diet-2gna,Lofat,Lochol Breakfast Condition: Stable LISET 11/06/24 In Process 20:07 Acetaminophen Tablet PHA 11/06/24 In Process (Tylenol Tablet) 20:15 Bedrest With Bathroom LISET 11/06/24 In Process Privileg 20:07 Date of Service: Nov 06, 2024 Billing Provider: MEHCELLE LOPEZ Common Visit Codes: [id number] INP/OBS CARE (HIGH) MECHELLE LOPEZ Nov 06, 2024 21:58
[2024-11-06] MEDS ORDERED: SACUBITRIL-VALSARTAN 24mg/26mg TAB PO SCH (22:00)
[2024-11-06] MEDS: ACCU-CHEK COMFORT CURVE STRIP VI SCH (22:00)
[2024-11-06] MEDS: APIXABAN 5 MG TAB PO SCH (22:00)
[2024-11-06] MEDS: METOPROLOL TARTRATE 25 MG TAB PO SCH (22:00)
[2024-11-06] MEDS: FUROSEMIDE 40 MG/4 ML VIAL IV ONE (23:48)
[2024-11-06] MEDS: SACUBITRIL-VALSARTAN 24mg/26mg TAB PO SCH (23:48)
[2024-11-06] MEDS: POTASSIUM CHL 20 Meq TABLET PO ONE (23:49)
[2024-11-06] MEDS: ATORVASTATIN 20 MG TAB PO SCH (23:49)
[2024-11-06] MEDS: MONTELUKAST SODIUM 10 MG TAB PO SCH (23:49)
[2024-11-07] VITALS (19 sets, daily range): BP systolic 103–164; BP diastolic 40–90; PULSE 64–81; RESP 12–20; TEMP 97.6–98.3; O2SAT 93–100
[2024-11-07] MEDS: IPRATROPIUM BROM 0.5 MG/2.5ML INH SOL NEB PRN ×2 (02:56→18:57)
[2024-11-07] MEDS: ALBUTEROL SULF 2.5 MG/0.5ML(0.5%) NEB SOLN NEB PRN ×2 (02:56→18:57)
[2024-11-07] MEDS: InsuLIN REG 1unit/0.01ml Soln (100units/ml) SC SCH (06:55)
[2024-11-07 08:17] LABS: Chloride 106 mmol/L (98-107); Sodium 143 mmol/L (136-145)
[2024-11-07 08:18] LABS: Anion Gap 15 (5-15); Calcium 9.7 mg/dL (8.7-10.4); Carbon Dioxide 22 mmol/L (20-31); Potassium 3.1 mmol/L (3.5-5.1)
[2024-11-07 08:23] LABS: BUN/Creatinine Ratio 18.6 (10.0-20.0); Blood Urea Nitrogen 22 mg/dL (9-23)
[2024-11-07 08:25] LABS: Glucose 299 mg/dL (74-106)
[2024-11-07] MEDS: CLOPIDOGREL BISULFATE 75 MG TAB PO SCH (09:31)
[2024-11-07] MEDS: AMIODARONE HCL 200 MG TAB PO SCH (09:31)
[2024-11-07] MEDS: EMPAGLIFLOZIN 10 MG TAB PO SCH (09:31)
[2024-11-07] MEDS: ISOSORBIDE MONONITRATE ER 60 MG TAB PO SCH (09:31)
[2024-11-07] MEDS: FUROSEMIDE 40 MG/4 ML VIAL IV SCH (09:49)
[2024-11-07] MEDS ORDERED: FUROSEMIDE 40 MG TAB PO SCH (10:00)
[2024-11-07 11:13] LABS: Urine Bacteria FEW /hpf (None Seen); Urine Blood Negative /uL (Negative); Urine Clarity Clear (Clear); Urine Color Light-Yellow (Yellow); Urine Protein, UAD Negative (Negative); Urine Specific Gravity 1.014 (1.001-1.035); Urine Squamous Epithelial Cell FEW /hpf (<5); Urine Urobilinogen Normal (Negative); Urine WBC 7 /HPF (0-5); Urine pH 5.5 (5.0-9.0)
--- NOTE | 2024-11-07 17:21 | DVHPN2 ---
Subjective Seen and examined at bedside, patient is on 3L oxygen now, usually uses 2L at home. Patient had potassium supplemented. Changes from previous H/P or p: No Changes Objective Vitals Vital Signs Date Time Temp Pulse Resp B/P (MAP) Pulse Ox O2 Delivery O2 Flow Rate FiO2 11/07/24 13:49 97.9 71 18 138/45 (76) 95 97.9 11/07/24 10:51 Nasal Cannula 2.0 11/07/24 10:51 28 Intake/Output Intake and Output 11/07/24 07:00 Intake Total 750 ml Balance 750 ml Intake Oral 750 ml # Voids 3 Exam Gen: in bed NAD Cvs: N S1/S2, RRR Resp: Diminished Abd: Soft, NT, BS+ Director Of Maternity Services: AAO x 4 Ext: 3+ edema Medications Current Medications Medications Dose Ordered Sig/Jeanne Route Start Time Stop Time Status Last Admin Dose Admin Montelukast Sodium 10 mg HS PO 11/06/24 22:00 11/06/24 23:49 10 MG Empaglifozin 10 mg DAILY PO 11/07/24 10:00 11/07/24 09:31 10 MG Amiodarone HCl 200 mg DAILY PO 11/07/24 10:00 11/07/24 09:31 200 MG Isosorbide Mononitrate 60 mg DAILY PO 11/07/24 10:00 11/07/24 09:31 60 MG Metoprolol Tartrate 25 mg BID PO 11/06/24 22:00 11/07/24 09:32 25 MG Sacubitril/ Valsartan 1 tab BID PO 11/06/24 22:00 11/07/24 09:31 1 TAB Sacubitril/ Valsartan 1 tab BID PO 11/06/24 22:00 UNV Atorvastatin Calcium 20 mg HS PO 11/06/24 22:00 11/06/24 23:49 20 MG Clopidogrel Bisulfate 75 mg DAILY PO 11/07/24 10:00 11/07/24 09:31 75 MG Apixaban 5 mg BID PO 11/06/24 22:00 11/07/24 09:31 5 MG Diagnostic Test (Pha) 1 strip ACHS 11/06/24 22:00 11/07/24 12:26 1 STRIP Insulin Human Regular ACHS SC 11/06/24 22:00 11/07/24 12:34 4 UNITS Dextrose 50 ml UD PRN IV 11/06/24 20:15 Ondansetron HCl 4 mg Q4HP PRN IV 11/06/24 20:15 Acetaminophen 650 mg Q6HP PRN PO 11/06/24 20:15 Furosemide 40 mg DAILY IV 11/07/24 10:00 11/07/24 09:49 40 MG Albuterol 2.5 mg Q4HPRN PRN NEB 11/07/24 17:15 Ipratropium [place] 0.5 mg Q4HPRN PRN NEB 11/07/24 17:15 Laboratory Results Laboratory Tests 11/06/24 15:26 11/07/24 07:13 Chemistry Test 11/07/24 07:13 Calcium Level 9.7 mg/dL (8.7-10.4) Urinalysis Test 11/06/24 10:28 Urine Color Light-yellow (Yellow) Urine Clarity Clear (Clear) Urine pH 5.5 (5.0-9.0) Urine Specific [place] 1.014 (1.001-1.035) Urine Protein Negative (Negative) Urine Ketones Negative (Negative) Urine Blood Negative /uL (Negative) Urine Nitrite Negative (Negative) Urine Bilirubin Negative (Negative) Urine Urobilinogen Normal mg/dL (Negative) Urine Leukocyte Esterase 1+ /uL (Negative) Urine RBC <1 /hpf (0 - 4) Urine Microscopic WBC 7 /HPF (0-5) H Urine Squamous Epithelial Cells Few /hpf (<5) Urine Bacteria Few /hpf (None Seen) H Urine Glucose 1+ mg/dL (Normal) H Assessment/Plan Assessment/Plan # Acute on Chronic Resp Failure - Titrate Oxygen down # Acute Systolic CHF Exacerbation - EF 25% - Lasix # Hypertensive Heart Disease w/Systolic CHF - Monitor and adjust meds as needed # Morbidly Obese Plan discussed with: Patient My Orders Orders - BROOKS SALDIVAR MD Procedure Category Date Status Time Comprehensive LAB 11/07/24 Logged Metabolic Panel 16:51 Magnesium LAB 11/07/24 Logged 16:51 Vitamin B12 LAB 11/07/24 In Process 16:51 Albuterol Medneb PHA 11/07/24 In Process (Ventolin Medneb) 17:15 Ipratropium Medneb PHA 11/07/24 In Process (Atrovent Medneb) 17:15 Potassium Er Tablet PHA 11/07/24 In Process (Klor-Con Tablet) 17:15 *Consult CONS 11/07/[address]Mukeshchandra Dorsey 17:14 Date of Service: Nov 07, 2024 Billing Provider: BROOKS SALDIVAR MD Common Visit Codes: [id number] INP/OBS CARE(HIGH) BROOKS SALDIVAR MD Nov 07, 2024 17:21
[2024-11-07] MEDS: POTASSIUM CHL 20 Meq TABLET PO ONE (17:28)
[2024-11-07 17:46] LABS: Albumin 4.5 g/dL (3.2-4.8); Alkaline Phosphatase 89 U/L (46-116); Anion Gap 10 (5-15); Aspartate Aminotransferase 14 U/L (<34); BUN/Creatinine Ratio 17.2 (10.0-20.0); Blood Urea Nitrogen 21 mg/dL (9-23); Calcium 10.3 mg/dL (8.7-10.4); Carbon Dioxide 24 mmol/L (20-31); Sodium 143 mmol/L (136-145)
[2024-11-07 17:47] LABS: Bilirubin, Total 0.7 mg/dL (0.2-1.0)
[2024-11-07 17:51] LABS: Alanine Aminotransferase < 9 U/L (7-40); Chloride 109 mmol/L (98-107); Glucose 125 mg/dL (74-106); Potassium 3.4 mmol/L (3.5-5.1)
--- NOTE | 2024-11-07 23:53 | DVHINCON2 ---
Date of service: Nov 07, 2024 Referring Physician Radha Reason for Consultation CHF History of Present Illness This is a 63 year old female with a PMH of Anxiety, Asthma, CAD, CHF, COPD, DM, High Lipids, HTN, PA who was brought in by daughter due to complaints of SOB x 2 days. Shortness of breath not was not relieved by inhalers and nebulizer at home. She also reports lower extremity swelling. Patient states she has been intubated twice in the past. Troponin is negative x 3. Gluc 412 > 311. K 3.4, DOUGH BRAKER 1.18. BNP is 824.85. Chest x-ray showed NAD.EKG is NSR at 71. Patient was admitted to the hospital. I am asked to consult on this patient. Family History: Cardiovascular disease G8 MOTHER Chronic obstructive pulmonary disease G8 MOTHER Diabetes mellitus G8 MOTHER Hypertension G8 MOTHER 19 CHILD, Name: Izabel Tucker Allergies: Coded Allergies: NO KNOWN ALLERGIES (Unverified , 04/04/24) Home Meds Active Scripts Empagliflozin (Jardiance) 10 Mg Tab, 10 MG PO DAILY, #30 TAB 5 Refills Prov:SHRUTI DAVID MD 09/12/24 Sacubitril-Valsartan (Entresto 24-26 mg) 1 Tab Tab, 1 TAB PO BID, #60 TAB 5 Refills Prov:SHRUTI DAVID MD 09/11/24 Metoprolol Succinate (Toprol Xl) 25 Mg Tab, 1 TAB PO DAILY, #30 TAB 5 Refills Prov:SHRUTI DAVID MD 09/11/24 Apixaban Base (ELIQUIS) 5 Mg Tab, 5 MG PO BID PRN for 30 Days, #60 TAB Prov:ELY HOUSE RESIDENT 07/31/24 Melatonin (Melatonin) 5 Mg Tab, 5 MG PO HS PRN for 30 Days, #30 TAB Prov:ELY HOUSE RESIDENT 07/31/24 Reported Medications Ipratropium-Albuterol (COMBIVENT RESPIMAT) Respimat Aer, 1 AER IN UD for 30 Days, #360 07/31/24 Amiodarone HCl (Amiodarone HCl) 200 Mg Tab, 1 TAB PO DAILY for 30 Days, #30 07/31/24 Atorvastatin Calcium (Lipitor) 20 Mg Tab, 2 TAB PO DAILY for 30 Days, #60 3/19/25 Metformin Hydrochloride (Metformin Hcl Er) 500 Mg Tab, 1 TAB PO BID for 90 Days, #180 07/31/24 Famotidine (Famotidine) 20 Mg Tab, 1 TAB PO DAILY PRN for GERD for 30 Days, #30 05/30/24 Albuterol Sulfate (Albuterol Sulfate Hfa) 108 Mcg/Act Aer, 1-2 PUFF IN Q6HR PRN for 50 Days, #18 05/30/24 Furosemide (Furosemide) 20 Mg Tab, 1 TAB PO DAILY for 30 Days, #30 05/30/24 Fluticasone Furoate-Vilanterol (Breo Ellipta 200-25 Mcg/INH) 1 Inh Inh, 1 INH IN DAILY, INHALER 04/05/24 Metoprolol Tartrate (Lopressor) 25 Mg Tb, 25 MG PO DAILY, TAB 04/05/24 Gabapentin (Gabapentin) 800 Mg Tab, 800 MG PO BID, TAB 04/05/24 Montelukast Sodium (MONTELUKAST SODIUM) 10 Mg Tab, 1 TAB PO DAILY for 30 Days, #30 04/05/24 Clopidogrel Bisulfate (CLOPIDOGREL) 75 Mg Tab, 1 TAB PO DAILY for 30 Days, #30 04/05/24 Glipizide (Glipizide) 5 Mg Tab, 5 MG PO DAILY for 90 Days, #90 04/05/24 Current Medications Current Medications Medications (Trade) Dose Ordered Sig/Jeanne Route PRN Reason Start Time Stop Time Status Last Admin Montelukast Sodium (Singulair Tablet) 10 mg HS PO 11/06/24 22:00 11/06/24 23:49 Empaglifozin (Jardiance) 10 mg DAILY PO 11/07/24 10:00 11/07/24 09:31 Amiodarone HCl (Cordarone Tablet) 200 mg DAILY PO 11/07/24 10:00 11/07/24 09:31 Albuterol (Ventolin Medneb) 2.5 mg Q6HPRN PRN NEB SHORTNESS OF BREATH 11/06/24 20:15 11/07/24 17:12 DC 11/07/24 10:51 Ipratropium [place] (Atrovent Medneb) 0.5 mg Q6HPRN PRN NEB SHORTNESS OF BREATH 11/06/24 20:15 11/07/24 17:12 DC 11/07/24 10:51 Isosorbide Mononitrate (Imdur Er Tablet) 60 mg DAILY PO 11/07/24 10:00 11/07/24 09:31 Metoprolol Tartrate (Lopressor Tablet) 25 mg BID PO 11/06/24 22:00 11/07/24 09:32 Furosemide (Lasix Tablet) 40 mg DAILY PO 11/07/24 10:00 11/06/24 21:56 DC Sacubitril/ Valsartan (Entresto 24-26 Mg tab) 1 tab BID PO 11/06/24 22:00 11/07/24 09:31 Sacubitril/ Valsartan (Entresto 24-26 Mg tab) 1 tab BID PO 11/06/24 22:00 UNV Atorvastatin Calcium (Lipitor) 20 mg HS PO 11/06/24 22:00 11/06/24 23:49 Clopidogrel Bisulfate (Plavix) 75 mg DAILY PO 11/07/24 10:00 11/07/24 09:31 Apixaban (Eliquis) 5 mg BID PO 11/06/24 22:00 11/07/24 09:31 Diagnostic Test (Pha) (Accu-Chek Comfort Curve T) 1 strip ACHS 11/06/24 22:00 11/07/24 17:19 Insulin Human Regular (InsuLIN R) ACHS SC 11/06/24 22:00 11/07/24 17:27 Dextrose 50 ml UD PRN IV Blood Sugar LESS THAN 60 11/06/24 20:15 Ondansetron HCl (Zofran) 4 mg Q4HP PRN IV NAUSEA / VOMITING 11/06/24 20:15 Acetaminophen (Tylenol Tablet) 650 mg Q6HP PRN PO PAIN SCALE 1-3 OR TEMP>100.4 11/06/24 20:15 Furosemide (Lasix Injection) 40 mg DAILY IV 11/07/24 10:00 11/07/24 09:49 Albuterol (Ventolin Medneb) 2.5 mg Q4HPRN PRN NEB SHORTNESS OF BREATH 11/07/24 17:15 Ipratropium [place] (Atrovent Medneb) 0.5 mg Q4HPRN PRN NEB SHORTNESS OF BREATH 11/07/24 17:15 Review of Systems Constitutional: denies: chills, diaphoresis, fatigue, fever, malaise, sweats, weakness, others EENTM: denies: blurred vision, double vision, ear bleeding, ear discharge, ear drainage, ear pain, ear ringing, eye pain, eye redness, hearing loss, mouth pain, mouth swelling, nasal discharge, nose bleeding, nose congestion, nose pain, photophobia, tearing, throat pain, throat swelling, voice changes, others Respiratory: reports: shortness of breath; denies: cough, hemoptysis, orthopnea, SOB at rest, SOB with excertion, stridor, wheezing, others Cardiovascular: denies: chest pain, dizzy spells, diaphoresis, Dyspnea on exertion, edema, irregular heart beat, left arm pain, lightheadedness, palpitations, PND, syncope, others Gastrointestinal: denies: abdomen distended, abdominal pain, blood streaked bowels, constipated, diarrhea, dysphagia, difficulty swallowing, hematemesis, melena, nausea, poor appetite, poor fluid intake, rectal bleeding, rectal pain, vomiting, others Genitourinary: denies: abnormal vagina bleeding, burning, dyspareunia, dysuria, flank pain, frequency, hematuria, incontinence, pain, , vagina disch arge, urgency, others Neurological: denies: dizziness, fainting, headache, left sided numbness, left sided weakness, numbness, paresthesia, pre-existing deficit, right sided numbness, right sided weakness, seizure, speech problems, tingling, tremors, weakness, others Musculoskeletal: denies: back pain, gout, joint pain, joint swelling, muscle pain, muscle stiffness, neck pain, others Integumetry: denies: bruises, change in color, change in hair/nails, dryness, laceration, lesions, lumps, rash, wounds, others Allergic/Immunocompromised: denies: Difficulty Healing, Frequent Infections, Hives, Itching, others Hematologic/Lymphatic: denies: anemia, blood clots, easy bleeding, easy bruising, swollen glands, others Endocrine: denies: excessive hunger, excessive sweating, excessive thirst, excessive urination, flushing, intolerance to cold, intolerance to heat, unexplained weight gain, unexplained weight loss, others Psychiatric: denies: anxiety, bipolar disorder, depression, hopeless, panic disorder, schizophrenia, sleepless, suicidal, others All Other Systems: Reviewed and Negative Vital Signs Vital Signs Date Time Temp Pulse Resp B/P (MAP) Pulse Ox O2 Delivery O2 Flow Rate FiO2 11/07/24 17:30 97.6 76 19 155/61 (92) 99 97.6 11/07/24 10:51 Nasal Cannula 2.0 11/07/24 10:51 28 Physical Exam GENERAL: Alert and oriented x 3. No acute distress. Morbidly obese. EYES: PERRL, EOMI. Anicteric. HENT: Moist mucous membranes. LUNGS: Clear to auscultation bilaterally. CARDIOVASCULAR: Regular rate and rhythm. ABDOMEN: Soft, nontender and nondistended. EXTREMITIES: 3+ BLE edema. NEUROLOGIC: No focal neurological deficits. SKIN: Warm, dry. Labs/Diagnostic Data Labs Test 11/07/24 17:18 11/07/24 16:45 11/07/24 07:13 11/06/24 18:30 Range/Units Sodium Level 143 136-145 mmol/L Potassium Level 3.4 L 3.5-5.1 mmol/L Chloride Level 109 H 98-107 mmol/L Carbon Dioxide Level 24 20-31 mmol/L Anion Gap 10 5-15 Blood Urea Nitrogen 21 9-23 mg/dL Creatinine 1.22 H 0.550-1.02 mg/dL Glomerular Filtration Rate Calc 49 >90 mL/min BUN/Creatinine Ratio 17.2 10.0-20.0 Serum Glucose 125 H 74-106 mg/dL Calcium Level 10.3 8.7-10.4 mg/dL Magnesium Level 2.0 1.6-2.6 mg/dL Total Bilirubin 0.7 0.2-1.0 mg/dL Aspartate Amino Transferase (AST) 14 <34 U/L Alanine Aminotransferase (ALT) < 9 7-40 U/L Alkaline Phosphatase 89 46-116 U/L Total Protein 7.0 5.7-8.2 g/dL Albumin 4.5 3.2-4.8 g/dL POC Glucose 147 H 70-106 mg/dl Vitamin B12 Level 234 211-911 pg/mL Troponin I High Sensitivity 27 </=34 ng/L Test 11/06/24 15:26 11/06/24 10:28 Range/Units White Blood Count 6.0 4.4-10.8 10^3/uL Red Blood Count 3.88 L 4.0-5.20 10^6/uL Hemoglobin 11.0 L 12.2-16.2 g/dL Hematocrit 34.0 L 36.0-46.0 % Mean Corpuscular Volume 87.5 80.0-100.0 fL Mean Corpuscular Hemoglobin 28.3 28.0-32.0 pg Mean Corpuscular Hemoglobin Concent 32.4 32.0-36.0 g/dL Red Cell Distribution Width 16.4 H 11.8-14.3 % Platelet Count 103 L 140-450 10^3/uL Mean Platelet Volume 9.3 6.9-10.8 fL Neutrophils (%) (Auto) 84.3 H 37.0-80.0 % Lymphocytes (%) (Auto) 9.2 L 10.0-50.0 % Monocytes (%) (Auto) 4.3 0.0-12.0 % Eosinophils (%) (Auto) 1.6 0.0-7.0 % Basophils (%) (Auto) 0.6 0.0-2.0 % Neutrophils # (Auto) 5.1 1.6-8.6 10 ^3/uL Lymphocytes # (Auto) 0.6 0.4-5.4 10 ^3/uL Monocytes # (Auto) 0.3 0-1.3 10 ^3/uL Eosinophils # (Auto) 0.1 0-0.8 10 ^3/uL Basophils # (Auto) 0 0-0.2 10 ^3/uL Nucleated Red Blood Cells 0.0 % B-Type Natriuretic Peptide 824.85 0-100 pg/mL Urine Color Light-yellow Yellow Urine Clarity Clear Clear Urine pH 5.5 5.0-9.0 Urine Specific [place] 1.014 1.001-1.035 Urine Protein Negative Negative Urine Ketones Negative Negative Urine Blood Negative Negative /uL Urine Nitrite Negative Negative Urine Bilirubin Negative Negative Urine Urobilinogen Normal Negative mg/dL Urine Leukocyte Esterase 1+ Negative /uL Urine RBC <1 0 - 4 /hpf Urine Microscopic WBC 7 H 0-5 /HPF Urine Squamous Epithelial Cells Few <5 /hpf Urine Bacteria Few H None Seen /hpf Urine Glucose 1+ H Normal mg/dL Assessment Acute on chronic respiratory failure. Acute systolic CHF exacerbation. Hypertensive heart disease. Morbidly obese. Plan/Recommendation I agree with your ongoing assessment and care of plan. Amiodarone. Eliquis. Lipitor, Plavix, Metoprolol. Diuretics with Lasix. Entresto. Additional plan as per the hospital course. A total of 45 minutes was spent reviewing the patient record, examining the patient, making a diagnostic and therapeutic plan, discussing this plan with medical personnel, following up on diagnostic studies and following the patient for clinical stability excluding any and all procedures. At least 50% of this time was spent in direct, [id number]-[id number] contact. Plan discussed with: Patient HUMBLE MCCAIN MD Nov 07, 2024 18:17
[2024-11-08] VITALS (18 sets, daily range): BP systolic 108–167; BP diastolic 39–53; PULSE 64–88; RESP 14–20; TEMP 97.5–98.5; O2SAT 92–100
--- NOTE | 2024-11-08 12:03 | DVHPN2 ---
Subjective Seen and examined at bedside, patient is on 2L oxygen now. Changes from previous H/P or p: No Changes Objective Vitals Vital Signs Date Time Temp Pulse Resp B/P (MAP) Pulse Ox O2 Delivery O2 Flow Rate FiO2 11/08/24 10:52 178/53 11/08/24 10:50 85 11/08/24 09:48 18 100 11/08/24 09:40 Nasal Cannula 2.0 11/08/24 09:40 28 11/08/24 09:00 98.5 98.5 Intake/Output Intake and Output 11/08/24 07:00 Intake Total 500 ml Balance 500 ml Intake Oral 500 ml # Voids 1 Exam Gen: in bed NAD Cvs: N S1/S2, RRR Resp: Diminished Abd: Soft, NT, BS+ Adobe Architect: AAO x 4 Ext: 3+ edema Medications Current Medications Medications Dose Ordered Sig/Jeanne Route Start Time Stop Time Status Last Admin Dose Admin Montelukast Sodium 10 mg HS PO 11/06/24 22:00 11/07/24 22:03 10 MG Empaglifozin 10 mg DAILY PO 11/07/24 10:00 11/08/24 11:03 10 MG Amiodarone HCl 200 mg DAILY PO 11/07/24 10:00 11/08/24 10:49 200 MG Isosorbide Mononitrate 60 mg DAILY PO 11/07/24 10:00 11/08/24 10:52 60 MG Metoprolol Tartrate 25 mg BID PO 11/06/24 22:00 11/08/24 10:50 25 MG Sacubitril/ Valsartan 1 tab BID PO 11/06/24 22:00 11/08/24 10:49 1 TAB Sacubitril/ Valsartan 1 tab BID PO 11/06/24 22:00 UNV Atorvastatin Calcium 20 mg HS PO 11/06/24 22:00 11/07/24 22:03 20 MG Clopidogrel Bisulfate 75 mg DAILY PO 11/07/24 10:00 11/08/24 10:50 75 MG Apixaban 5 mg BID PO 11/06/24 22:00 11/08/24 10:50 5 MG Diagnostic Test (Pha) 1 strip ACHS 11/06/24 22:00 11/08/24 11:38 1 STRIP Insulin Human Regular ACHS SC 11/06/24 22:00 11/08/24 06:47 2 UNITS Dextrose 50 ml UD PRN IV 11/06/24 20:15 Ondansetron HCl 4 mg Q4HP PRN IV 11/06/24 20:15 Acetaminophen 650 mg Q6HP PRN PO 11/06/24 20:15 Furosemide 40 mg DAILY IV 11/07/24 10:00 11/08/24 10:49 40 MG Albuterol 2.5 mg Q4HPRN PRN NEB 11/07/24 17:15 11/08/24 09:40 2.5 MG Ipratropium [place] 0.5 mg Q4HPRN PRN NEB 11/07/24 17:15 11/08/24 09:40 0.5 MG Laboratory Results Laboratory Tests 11/06/24 15:26 11/07/24 17:18 Chemistry Test 11/07/24 17:18 Albumin 4.5 g/dL (3.2-4.8) Calcium Level 10.3 mg/dL (8.7-10.4) Magnesium Level 2.0 mg/dL (1.6-2.6) Total Protein 7.0 g/dL (5.7-8.2) LFT Test 11/07/24 17:18 Alanine Aminotransferase (ALT) < 9 U/L (7-40) Alkaline Phosphatase 89 U/L (46-116) Aspartate Amino Transferase (AST) 14 U/L (<34) Total Bilirubin 0.7 mg/dL (0.2-1.0) Urinalysis Test 11/06/24 10:28 Urine Color Light-yellow (Yellow) Urine Clarity Clear (Clear) Urine pH 5.5 (5.0-9.0) Urine Specific [place] 1.014 (1.001-1.035) Urine Protein Negative (Negative) Urine Ketones Negative (Negative) Urine Blood Negative /uL (Negative) Urine Nitrite Negative (Negative) Urine Bilirubin Negative (Negative) Urine Urobilinogen Normal mg/dL (Negative) Urine Leukocyte Esterase 1+ /uL (Negative) Urine RBC <1 /hpf (0 - 4) Urine Microscopic WBC 7 /HPF (0-5) H Urine Squamous Epithelial Cells Few /hpf (<5) Urine Bacteria Few /hpf (None Seen) H Urine Glucose 1+ mg/dL (Normal) H Assessment/Plan Assessment/Plan # Acute on Chronic Resp Failure - Titrate Oxygen down # Acute Systolic CHF Exacerbation - EF 25% - Lasix # Hypertensive Heart Disease w/Systolic CHF - Monitor and adjust meds as needed # Vitamin B12 Def- Supplement # Morbidly Obese Plan discussed with: Patient My Orders Orders - BROOKS SALDIVAR MD Procedure Category Date Status Time Albuterol Medneb PHA 11/07/24 In Process (Ventolin Medneb) 17:15 Ipratropium Medneb PHA 11/07/24 In Process (Atrovent Medneb) 17:15 *Consult CONS 11/07/[address]Mukeshchandra Dorsey 17:14 Cyanocobalamin PHA 11/08/24 Transmitted Injection (Vitamin 12:15 Cyanocobalamin PHA 11/09/24 Transmitted Injection (Vitamin 10:00 Basic Metabolic Panel LAB 11/09/24 Verified 04:00 Magnesium LAB 11/09/24 Verified 04:00 Date of Service: Nov 08, 2024 Billing Provider: BROOKS SALDIVAR MD Common Visit Codes: [id number] INP/OBS CARE(HIGH) BROOKS SALDIVAR MD Nov 08, 2024 12:03
[2024-11-08] MEDS: POTASSIUM CHL 20 Meq TABLET PO ONE (12:18)
[2024-11-08] MEDS: CYANOCOBALAMIN (B-12) 1000 MCG/1 ML VIAL IM ONE (12:37)
[2024-11-08] MEDS ORDERED: IPRATROPIUM BROM 0.5 MG/2.5ML INH SOL NEB SCH (18:00)
[2024-11-08] MEDS ORDERED: ALBUTEROL SULF 2.5 MG/0.5ML(0.5%) NEB SOLN NEB SCH (18:00)
[2024-11-08] MEDS: IPRATROPIUM BROM 0.5 MG/2.5ML INH SOL NEB SCH (19:06)
[2024-11-08] MEDS: ALBUTEROL SULF 2.5 MG/0.5ML(0.5%) NEB SOLN NEB SCH (19:06)
--- NOTE | 2024-11-08 21:37 | DVHPN2 ---
Progress Note - Dictate Date Seen: Nov 08, 2024 Medical Necessity Reason Pt with a Central, PICC or Fol: No Subjective Patient was seen and evaluated in follow up. Patient is on 2 LPM NC. She is complaining of SOB. Patient receiving PRN breathing treatments. BS in the 120's. vital signs Vital Sign Date Time Temp Pulse Resp B/P (MAP) Pulse Ox O2 Delivery O2 Flow Rate FiO2 11/08/24 14:28 66 18 97 11/08/24 13:00 98.1 155/52 (86) 98.1 11/08/24 09:40 Nasal Cannula 2.0 11/08/24 09:40 28 Total Intake and Output 11/07/24 11/07/24 11/08/24 15:00 23:00 07:00 Intake Total 500 ml Balance 500 ml medications Current Medications Medications Dose Ordered Sig/Jeanne Route Start Time Stop Time Status Last Admin Dose Admin Montelukast Sodium 10 mg HS PO 11/06/24 22:00 11/07/24 22:03 10 MG Empaglifozin 10 mg DAILY PO 11/07/24 10:00 11/08/24 11:03 10 MG Amiodarone HCl 200 mg DAILY PO 11/07/24 10:00 11/08/24 10:49 200 MG Isosorbide Mononitrate 60 mg DAILY PO 11/07/24 10:00 11/08/24 10:52 60 MG Metoprolol Tartrate 25 mg BID PO 11/06/24 22:00 11/08/24 10:50 25 MG Sacubitril/ Valsartan 1 tab BID PO 11/06/24 22:00 11/08/24 10:49 1 TAB Sacubitril/ Valsartan 1 tab BID PO 11/06/24 22:00 UNV Atorvastatin Calcium 20 mg HS PO 11/06/24 22:00 11/07/24 22:03 20 MG Clopidogrel Bisulfate 75 mg DAILY PO 11/07/24 10:00 11/08/24 10:50 75 MG Apixaban 5 mg BID PO 11/06/24 22:00 11/08/24 10:50 5 MG Diagnostic Test (Pha) 1 strip ACHS 11/06/24 22:00 11/08/24 11:38 1 STRIP Insulin Human Regular ACHS SC 11/06/24 22:00 11/08/24 06:47 2 UNITS Dextrose 50 ml UD PRN IV 11/06/24 20:15 Ondansetron HCl 4 mg Q4HP PRN IV 11/06/24 20:15 Acetaminophen 650 mg Q6HP PRN PO 11/06/24 20:15 Furosemide 40 mg DAILY IV 11/07/24 10:00 11/08/24 10:49 40 MG Cyanocobalamin 1,000 mcg DAILY SUBCUT 11/09/24 10:00 Albuterol 2.5 mg Q4HR NEB 11/08/24 18:00 UNV Ipratropium [place] 0.5 mg Q4HR NEB 11/08/24 18:00 UNV objective GENERAL: Alert and oriented x 3. No acute distress. Morbidly obese. EYES: PERRL, EOMI. Anicteric. HENT: Moist mucous membranes. LUNGS: Diminished breath sounds. CARDIOVASCULAR: Regular rate and rhythm. ABDOMEN: Soft, nontender and nondistended. EXTREMITIES: 3+ BLE edema. NEUROLOGIC: No focal neurological deficits. SKIN: Warm, dry. laboratory and microbiology Laboratory Tests 11/07/24 17:18 11/06/24 15:26 Test 11/07/24 17:18 Range/Units Serum Glucose 125 H 74-106 mg/dL Problem List Acute on chronic respiratory failure. Acute systolic CHF exacerbation. Hypertensive heart disease. Morbidly obese. Assessment/Plan Continued all current supportive medical care. Amiodarone. Eliquis. Lipitor, Plavix, Metoprolol. Diuretics with Lasix. Entresto. Additional plan as per the hospital course. Plan discussed with: Patient HUMBLE MCCAIN MD Nov 08, 2024 14:35
[2024-11-09] VITALS (14 sets, daily range): BP systolic 127–176; BP diastolic 48–64; PULSE 68–89; RESP 16–20; TEMP 37.6; O2SAT 96–100
[2024-11-09 06:10] LABS: Potassium 3.6 mmol/L (3.5-5.1)
[2024-11-09 06:11] LABS: Anion Gap 11 (5-15); Calcium 9.7 mg/dL (8.7-10.4); Carbon Dioxide 27 mmol/L (20-31)
[2024-11-09 06:16] LABS: BUN/Creatinine Ratio 25.4 (10.0-20.0)
[2024-11-09 06:22] LABS: Blood Urea Nitrogen 34 mg/dL (9-23); Chloride 109 mmol/L (98-107); Glucose 137 mg/dL (74-106); Sodium 147 mmol/L (136-145)
[2024-11-09] MEDS: ACETAMINOPHEN 325 MG TAB PO PRN (08:22)
[2024-11-09] MEDS ORDERED: CYAN100056 PO (10:27)
[2024-11-09] MEDS ORDERED: LEVO500T91 PO (10:27)
[2024-11-09] MEDS ORDERED: EMPA1TAB PO (10:27)
[2024-11-09] MEDS: cefTRIAXone 2GM/50ML D5W 50 ML IV ONE (10:30)
--- NOTE | 2024-11-09 10:31 | DVHDS2 ---
Discharge Summary Date of Admission Nov 06, 2024 at 19:53 Date of Discharge: Nov 09, 2024 Admitting Diagnosis Acute on Chronic Resp Failure Labs/Diagnostic Data: Laboratory Results Test 11/09/24 06:13 11/09/24 05:18 11/07/24 17:18 11/07/24 07:13 POC Glucose 139 mg/dl (70-106) Sodium Level 147 mmol/L (136-145) Potassium Level 3.6 mmol/L (3.5-5.1) Chloride Level 109 mmol/L (98-107) Carbon Dioxide Level 27 mmol/L (20-31) Anion Gap 11 (5-15) Blood Urea Nitrogen 34 mg/dL (9-23) Creatinine 1.34 mg/dL (0.550-1.02) Glomerular Filtration Rate Calc 44 mL/min (>90) BUN/Creatinine Ratio 25.4 (10.0-20.0) Serum Glucose 137 mg/dL (74-106) Calcium Level 9.7 mg/dL (8.7-10.4) Magnesium Level 2.0 mg/dL (1.6-2.6) Total Bilirubin 0.7 mg/dL (0.2-1.0) Aspartate Amino Transferase (AST) 14 U/L (<34) Alanine Aminotransferase (ALT) < 9 U/L (7-40) Alkaline Phosphatase 89 U/L (46-116) Total Protein 7.0 g/dL (5.7-8.2) Albumin 4.5 g/dL (3.2-4.8) Vitamin B12 Level 234 pg/mL (211-911) Test 11/06/24 18:30 11/06/24 15:26 11/06/24 10:28 Troponin I High Sensitivity 27 ng/L (</=34) White Blood Count 6.0 10^3/uL (4.4-10.8) Red Blood Count 3.88 10^6/uL (4.0-5.20) Hemoglobin 11.0 g/dL (12.2-16.2) Hematocrit 34.0 % (36.0-46.0) Mean Corpuscular Volume 87.5 fL (80.0-100.0) Mean Corpuscular Hemoglobin 28.3 pg (28.0-32.0) Mean Corpuscular Hemoglobin Concent 32.4 g/dL (32.0-36.0) Red Cell Distribution Width 16.4 % (11.8-14.3) Platelet Count 103 10^3/uL (140-450) Mean Platelet Volume 9.3 fL (6.9-10.8) Neutrophils (%) (Auto) 84.3 % (37.0-80.0) Lymphocytes (%) (Auto) 9.2 % (10.0-50.0) Monocytes (%) (Auto) 4.3 % (0.0-12.0) Eosinophils (%) (Auto) 1.6 % (0.0-7.0) Basophils (%) (Auto) 0.6 % (0.0-2.0) Neutrophils # (Auto) 5.1 10 ^3/uL (1.6-8.6) Lymphocytes # (Auto) 0.6 10 ^3/uL (0.4-5.4) Monocytes # (Auto) 0.3 10 ^3/uL (0-1.3) Eosinophils # (Auto) 0.1 10 ^3/uL (0-0.8) Basophils # (Auto) 0 10 ^3/uL (0-0.2) Nucleated Red Blood Cells 0.0 % B-Type Natriuretic Peptide 824.85 pg/mL (0-100) Urine Color Light-yellow (Yellow) Urine Clarity Clear (Clear) Urine pH 5.5 (5.0-9.0) Urine Specific [place] 1.014 (1.001-1.035) Urine Protein Negative (Negative) Urine Ketones Negative (Negative) Urine Blood Negative /uL (Negative) Urine Nitrite Negative (Negative) Urine Bilirubin Negative (Negative) Urine Urobilinogen Normal mg/dL (Negative) Urine Leukocyte Esterase 1+ /uL (Negative) Urine RBC <1 /hpf (0 - 4) Urine Microscopic WBC 7 /HPF (0-5) Urine Squamous Epithelial Cells Few /hpf (<5) Urine Bacteria Few /hpf (None Seen) Urine Glucose 1+ mg/dL (Normal) Other Laboratory Tests 11/09/24 05:18 11/06/24 15:26 Brief Hx & Hospital Course: This is a 63 year old female with a PMH of Anxiety, Asthma, CAD, CHF, COPD, DM, High Lipids, HTN, PR who was brought in by daughter due to complaints of SOB x 2 days. Patient was treated with Lasix. Patient possibly has a UTI, will be discharged with Levaquin. Patient is back on her baseline 2L nasal cannula oxygen. Condition at Discharge: Poor Final Diagnosis/Problems List # Acute on Chronic Resp Failure - Titrate Oxygen down # Possible UTI - Levaquin # Acute Systolic CHF Exacerbation - EF 25% - Lasix # Hypertensive Heart Disease w/Systolic CHF - Monitor and adjust meds as needed # Vitamin B12 Def- Supplement # Morbidly Obese Discharge Disposition: Home Discharge Instruct/Medications Diet: Consistent carbohydrate Activity: Light activity Follow Up/Referral: [facility] Medications: See [facility] Discharge Statement: "Patient was advised to return to the ER or call 911 if any headaches, dizziness, shortness of breath, chest pain, abdominal pain, bleeding, fevers, or worsening of medical condition. Patient was counseled about treatment plan, medications, possible side effects, patientverbalized understanding. All questions were answered to the best of my ability. This discharge took greater then 30 minutes in planning, reviewing documentation, counseling the patient, and discussing with other team members." ASSESSMENT ASSESSMENT Assessment Date of Service: Nov 09, 2024 Billing Provider: BROOKS SALDIVAR MD Common Visit Codes: [id number] DISCH DAY >30min BROOKS SALDIVAR MD Nov 09, 2024 10:31
[2024-11-09] MEDS: CYANOCOBALAMIN (B-12) 1000 MCG/1 ML VIAL SUBCUT SCH (11:23)
--- NOTE | 2024-11-09 15:41 | DVHPN2 ---
Progress Note - Dictate Date Seen: Nov 09, 2024 Medical Necessity Reason Pt with a Central, PICC or Fol: No Subjective Patient was seen and evaluated in follow up. Patient was febrile this morning with a temperature of 100.1F. Patient was placed on cooling measures. Patient now on 3 LPM NC. 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 vital signs Vital Sign Date Time Temp Pulse Resp B/P (MAP) Pulse Ox O2 Delivery O2 Flow Rate FiO2 11/09/24 13:55 68 16 100 11/09/24 13:49 Nasal Cannula 3.0 11/09/24 13:49 32 11/09/24 13:03 37.6 11/09/24 12:25 150/63 Total Intake and Output 11/08/24 11/08/24 11/09/24 15:00 23:00 07:00 Intake Total 750 ml 650 ml Balance 750 ml 650 ml medications Current Medications Medications Dose Ordered Sig/Jeanne Route Start Time Stop Time Status Last Admin Dose Admin Montelukast Sodium 10 mg HS PO 11/06/24 22:00 11/08/24 20:59 10 MG Empaglifozin 10 mg DAILY PO 11/07/24 10:00 11/09/24 11:24 10 MG Amiodarone HCl 200 mg DAILY PO 11/07/24 10:00 11/09/24 11:24 200 MG Isosorbide Mononitrate 60 mg DAILY PO 11/07/24 10:00 11/09/24 11:25 60 MG Metoprolol Tartrate 25 mg BID PO 11/06/24 22:00 11/09/24 11:25 25 MG Sacubitril/ Valsartan 1 tab BID PO 11/06/24 22:00 11/09/24 11:24 1 TAB Sacubitril/ Valsartan 1 tab BID PO 11/06/24 22:00 UNV Atorvastatin Calcium 20 mg HS PO 11/06/24 22:00 11/08/24 20:59 20 MG Clopidogrel Bisulfate 75 mg DAILY PO 11/07/24 10:00 11/09/24 11:24 75 MG Apixaban 5 mg BID PO 11/06/24 22:00 11/09/24 11:25 5 MG Diagnostic Test (Pha) 1 strip ACHS 11/06/24 22:00 11/09/24 12:23 1 STRIP Insulin Human Regular ACHS SC 11/06/24 22:00 11/09/24 12:23 2 UNITS Dextrose 50 ml UD PRN IV 11/06/24 20:15 Ondansetron HCl 4 mg Q4HP PRN IV 11/06/24 20:15 Acetaminophen 650 mg Q6HP PRN PO 11/06/24 20:15 11/09/24 08:22 650 MG Furosemide 40 mg DAILY IV 11/07/24 10:00 11/09/24 11:31 40 MG Cyanocobalamin 1,000 mcg DAILY SUBCUT 11/09/24 10:00 11/09/24 11:23 1,000 MCG Albuterol 2.5 mg Q4HR NEB 11/08/24 18:00 11/09/24 13:49 2.5 MG Ipratropium [place] 0.5 mg Q4HR NEB 11/08/24 18:00 11/09/24 13:49 0.5 MG objective GENERAL: Alert and oriented x 3. No acute distress. Morbidly obese. EYES: PERRL, EOMI. Anicteric. HENT: Moist mucous membranes. LUNGS: Diminished breath sounds. CARDIOVASCULAR: Regular rate and rhythm. ABDOMEN: Soft, nontender and nondistended. EXTREMITIES: 3+ BLE edema. NEUROLOGIC: No focal neurological deficits. SKIN: Warm, dry. laboratory and microbiology Laboratory Tests 11/09/24 05:18 11/06/24 15:26 Test 11/09/24 05:18 Range/Units Serum Glucose 137 H 74-106 mg/dL Problem List Acute on chronic respiratory failure. Acute systolic CHF exacerbation. Hypertensive heart disease. Morbidly obese. Assessment/Plan Continued all current supportive medical care. Amiodarone. Eliquis. Lipitor, Plavix, Metoprolol. Diuretics with Lasix. Entresto. Additional plan as per the hospital course. Plan discussed with: Patient HUMBLE MCCAIN MD Nov 09, 2024 14:35
== END 2024-11-09 14:30 | disposition home or self-care (01) | DRG 291 ==
LOC: ER 14:50 → OVERFLOW 19:53 → WEST WING 11-07 17:59
PROVIDERS: ADMIT Internal Medicine; ATTEND Internal Medicine
DX: I11.0 Hypertensive heart disease with heart failure (principal); I50.23 Acute on chronic systolic (congestive) heart failure; J96.21 Acute and chronic respiratory failure with hypoxia; J44.1 Chronic obstructive pulmonary disease with (acute) exacerbation; N39.0 Urinary tract infection, site not specified; E87.6 Hypokalemia; E11.9 Type 2 diabetes mellitus without complications; F41.9 Anxiety disorder, unspecified; E53.8 Deficiency of other specified B group vitamins; I25.10 Atherosclerotic heart disease of native coronary artery without angina pectoris; E78.5 Hyperlipidemia, unspecified; Z98.51 Tubal ligation status; Z83.3 Family history of diabetes mellitus; Z82.5 Family history of asthma and other chronic lower respiratory diseases; Z82.49 Family history of ischemic heart disease and other diseases of the circulatory system; Z79.84 Long term (current) use of oral hypoglycemic drugs; Z79.899 Other long term (current) drug therapy
CPT/HCPCS: 36415; 71046; 80048; 80053; 81001; 82607; 82962; 83735; 83880; 84484; 85025; 93005; 94640; 96374; 96375; 99291; G0378; J1815

== ENCOUNTER 2024-12-25 14:14 | Inpatient (IN) | payer OTHER, MEDICAID ==
[2024-12-25] VITALS (7 sets, daily range): BP systolic 109; BP diastolic 58; PULSE 66–69; RESP 15–20; TEMP 98; O2SAT 98–100
[~2024-12-25] VITALS: Ht 157.5 cm; Wt 111.9 kg
[~2024-12-25 14:14] MED LIST changes: -AZIT-74 PO; -BENA-36 PO; +CYAN100056 PO; -DOX100T PO; +LEVO500T91 PO; -METH4PAK PO; -METO25TA36 PO; -PRED20TA2 PO
--- NOTE | 2024-12-25 14:48 | ED.PDOC ---
SOB-HPI HPI Comments 64 year old female presents to the ED via EMS with a chief complaint of shortness of breath onset today. [place] [facility] [place] for P[place]onia, discharged on 12/23/24. Patient states symptoms have not improved, noticed symptoms worsen this morning, called 911. She has been experiencing shortness of breath with intermittent chest pain. PMHx anxiety, asthma, CAD, CHF, COPD, DM, HLD, HTN, [place]. Denies dizziness,nausea, vomiting, diarrhea, fever, chills, dysuria, hematuria. No other symptoms or modifying factors present at this time. Chief Complaint: Shortness of Breath Time Seen by MD: 14:30 Primary Care Provider: UNKNOWN Reviewed notes: Medications, Allergies Information Source: Patient, Emergency Med Personnel Mode of Arrival: EMS Severity: Moderate Timing: Hours Duration: Since onset Context: At Rest PE Risk Factors: None History of: Asthma, COPD, CHF, Anxiety, Recent URI Prehospital treatment: None Modifying Factors: Nothing Associated Signs and Symptoms: Chest Pain Radiation: No Radiation Past Medical History PAST MEDICAL HISTORY: Anxiety, Asthma, CAD, CHF, COPD, DM, High Lipids, HTN, [place] Surgical History: Hernia Repair, PTCA, Tonsillectomy, Tubal Ligation MEDICARE SPECIALIST History: Denies all MEDICARE SPECIALIST Hx, Unknown Family History Family History: Reviewed,noncontributory to illness, Family hx of DM, Family hx of heart matias, Family hx of HTN, Family hx of lung matias Social History Smoker: Secondhand Alcohol: Denies ETOH Use Drugs: Denies Drug Use Lives In: Home Constitutional: denies: chills, diaphoresis, fatigue, fever, malaise, sweats, weakness, others EENTM: denies: blurred vision, double vision, ear bleeding, ear discharge, ear drainage, ear pain, ear ringing, eye pain, eye redness, hearing loss, mouth pain, mouth swelling, nasal discharge, nose bleeding, nose congestion, nose pain, photophobia, tearing, throat pain, throat swelling, voice changes, others Respiratory: reports: shortness of breath; denies: cough, hemoptysis, orthopnea, SOB at rest, SOB with excertion, stridor, wheezing, others Cardiovascular: reports: chest pain; denies: dizzy spells, diaphoresis, Dyspnea on exertion, edema, irregular heart beat, left arm pain, lightheadedness, palpitations, PND, syncope, others Gastrointestinal: denies: abdomen distended, abdominal pain, blood streaked bowels, constipated, diarrhea, dysphagia, difficulty swallowing, hematemesis, melena, nausea, poor appetite, poor fluid intake, rectal bleeding, rectal pain, vomiting, others Genitourinary: denies: abnormal vagina bleeding, burning, dyspareunia, dysuria, flank pain, frequency, hematuria, incontinence, pain, , vagina discharge, urgency, others Neurological: denies: dizziness, fainting, headache, left sided numbness, left sided weakness, numbness, paresthesia, pre-existing deficit, right sided numbness, right sided weakness, seizure, speech problems, tingling, tremors, weakness, others Musculoskeletal: denies: back pain, gout, joint pain, joint swelling, muscle pain, muscle stiffness, neck pain, others Integumetry: denies: bruises, change in color, change in hair/nails, dryness, laceration, lesions, lumps, rash, wounds, others Allergic/Immunocompromised: denies: Difficulty Healing, Frequent Infections, Hives, Itching, others Hematologic/Lymphatic: denies: anemia, blood clots, easy bleeding, easy bruising, swollen glands, others Endocrine: denies: excessive hunger, excessive sweating, excessive thirst, excessive urination, flushing, intolerance to cold, intolerance to heat, unexplained weight gain, unexplained weight loss, others Psychiatric: denies: anxiety, bipolar disorder, depression, hopeless, panic disorder, schizophrenia, sleepless, suicidal, others All Other Systems: Reviewed and Negative Physical Exam General Appearance: Normal HEENT: Normal ENT Inspection, Pharynx Normal, TMs Normal Neck: Full Range of Motion, Non-Tender, Normal, Normal Inspection Respiratory: Chest Non-Tender, Lungs Clear, No Accessory Muscle Use, No Respiratory Distress, Normal Breath Sounds Cardiovascular: No Edema, No JVD, No Murmur, No Gallop, Normal Peripheral Pulses, Regular Rate/Rhythm Breast Exam: Deferred Gastrointestinal: No Organomegaly, Non Tender, No Pulsatile Mass, Normal Bowel Sounds, Soft Genitalia: Deferred Pelvic: Deferred Rectal: Deferred Extremities: No calf tenderness, Normal capillary refill, Normal inspection, Normal range of motion, Non-tender, No pedal edema Musculoskeletal : Apperance: Normal Neurologic: Alert, supervisor scenic arts II-XII nml as Tested, No Motor Deficits, Normal Affect, Normal Mood, No Sensory Deficits Cerebellar Function: Normal Reflexes: Normal Skin: Dry, Normal Color, Warm Lymphatic: No Adenopathy Was a procedure done? Was a procedure done?: No Differential Dx Differential Diagnosis: CHF, COPD, Hypertension, Hyponatremia, Pneumonia X-Ray, Labs, Meds, VS Vital Signs Date Time Temp Pulse Resp B/P (MAP) Pulse Ox O2 Delivery O2 Flow Rate FiO2 12/25/24 17:19 100/51 12/25/24 16:01 69 12/25/24 16:00 67 18 99/49 (66) 100 12/25/24 14:55 68 17 100 Nasal Cannula* 2 28 12/25/24 14:55 100 Nasal Cannula* 2 28 12/25/24 14:43 97.3 81 18 173/71 (105) 100 97.3 12/25/24 14:23 98.4 72 22 200/80 98 98.4 Lab Test 12/25/24 16:02 12/25/24 14:57 Range/Units Troponin I High Sensitivity 18 20 </=34 ng/L White Blood Count 4.4 4.4-10.8 10^3/uL Red Blood Count 3.81 L 4.0-5.20 10^6/uL Hemoglobin 10.8 L 12.2-16.2 g/dL Hematocrit 32.8 L 36.0-46.0 % Mean Corpuscular Volume 86.0 80.0-100.0 fL Mean Corpuscular Hemoglobin 28.4 28.0-32.0 pg Mean Corpuscular Hemoglobin Concent 33.0 32.0-36.0 g/dL Red Cell Distribution Width 15.5 H 11.8-14.3 % Platelet Count 189 140-450 10^3/uL Mean Platelet Volume 7.8 6.9-10.8 fL Neutrophils (%) (Auto) 72.3 37.0-80.0 % Lymphocytes (%) (Auto) 16.6 10.0-50.0 % Monocytes (%) (Auto) 6.3 0.0-12.0 % Eosinophils (%) (Auto) 4.1 0.0-7.0 % Basophils (%) (Auto) 0.7 0.0-2.0 % Neutrophils # (Auto) 3.2 1.6-8.6 10 ^3/uL Lymphocytes # (Auto) 0.7 0.4-5.4 10 ^3/uL Monocytes # (Auto) 0.3 0-1.3 10 ^3/uL Eosinophils # (Auto) 0.2 0-0.8 10 ^3/uL Basophils # (Auto) 0 0-0.2 10 ^3/uL Nucleated Red Blood Cells 0.0 % Sodium Level 142 136-145 mmol/L Potassium Level 3.4 L 3.5-5.1 mmol/L Chloride Level 105 98-107 mmol/L Carbon Dioxide Level 27 20-31 mmol/L Anion Gap 10 5-15 Blood Urea Nitrogen 16 9-23 mg/dL Creatinine 1.08 H 0.550-1.02 mg/dL Glomerular Filtration Rate Calc 57 >90 mL/min BUN/Creatinine Ratio 14.8 10.0-20.0 Serum Glucose 98 74-106 mg/dL Lactic Acid Level 2.3 *H 0.4-2.0 mmol/L Calcium Level 9.2 8.7-10.4 mg/dL B-Type Natriuretic Peptide 812.23 0-100 pg/mL Current Medications Medications (Trade) Dose Ordered Sig/Jeanne Route Start Time Stop Time Status Last Admin Haloperidol Lactate (Haldol) 5 mg ONCE ONCE IM 12/25/24 16:00 12/25/24 16:03 DC 12/25/24 16:02 Furosemide (Lasix Injection) 40 mg ONCE ONCE IV 12/25/24 17:00 12/25/24 17:01 DC 12/25/24 17:19 Time of 1ST Reevaluation: 15:00 Reevaluation 1ST: Unchanged Patient Education/Counseling: Diagnosis, Treatment, Prognosis Family Education/Counseling: No Family Present SEPSIS Sepsis Screen Date sepsis recognized/suspect: Dec 25, 2024 Time Sepsis recognized/suspect: 1426 Recent Procedure: No On Antibiotic Therapy: No Respiratory Rate >20: Yes Heart Rate >90: No Temp<36 C (96.8 F) or >38.3 C: No SBP <90 or MAP <65 mmHG: No New Acute Mental Status Change: No Is the patient on CPAP, BIPAP,: No Physician Orders Blood Culture (12/25/24 14:42) Chest Portable (12/25/24 14:42) Troponin-I Hs (12/25/24 17:42) Albuterol Medneb (Ventolin Medneb) (12/25/24 18:00) Ipratropium Medneb (Atrovent Medneb) (12/25/24 18:00) Vital Signs Date Time Temp Pulse Resp B/P (MAP) Pulse Ox O2 Delivery O2 Flow Rate FiO2 12/25/24 17:19 100/51 12/25/24 16:01 69 12/25/24 16:00 67 18 99/49 (66) 100 12/25/24 14:55 68 17 100 Nasal Cannula* 2 28 12/25/24 14:55 100 Nasal Cannula* 2 28 12/25/24 14:43 97.3 81 18 173/71 (105) 100 97.3 12/25/24 14:23 98.4 72 22 200/80 98 98.4 Laboratory Tests Test 12/25/24 14:57 Lactic Acid Level 2.3 mmol/L (0.4-2.0) *H White Blood Count 4.4 10^3/uL (4.4-10.8) Medications Medications Dose Ordered Sig/Jeanne Route Start Time Stop Time Status Last Admin Dose Admin Furosemide 40 mg ONCE ONCE IV 12/25/24 17:00 12/25/24 17:01 DC 12/25/24 17:19 Haloperidol Lactate 5 mg ONCE ONCE IM 12/25/24 16:00 12/25/24 16:03 DC 12/25/24 16:02 Departure 1 Departure Time of Disposition: 18:01 (Patient presented with shortness of breath that was concerning for possible STEMI, ACS, PE, Pneumonia, Muscle Strain, COPD, Dissection, Acute on Chronic systolic and Diastolic dysfunction. Data: 1. I ordered and reviewed the result of at least 3 labs including a CBC, BMP, and Troponin. 2. I independently interpreted the following tests: EKG which shows sinus arrhthmia and Chest X-ray which shows cardiomegaly.Risk:This patient has a high risk of morbidity due to further diagnostic testing or treatment and may suffer from an acute cardiac or respiratory disorder but is most consitent with an acute chf exacerbation. Patient should be admitted for further workup and possible expert consultation. ) Impression: Primary Impression: Acute on chronic systolic heart failure Additional Impression: Shortness of breath Disposition: ADMITTED INPATIENT Admit to: Med Surg Condition: Serious Critical Care Note Critical Care Time?: Yes Critical care comment: Acute shortness of breath Authorized and Performed by: Domingo Rangel MD Total critical care time: Approximately 79 minutes Due to a high probability of clinically significant, life threatening deterioration, the patient required my highest level of preparedness to intervene emergently and I personally spent this critical care time directly and personally managing the patient. This critical care time included obtaining a history; examining the patient; pulse oximetry; ordering and review of studies; arranging urgent treatment with development of a management plan; evaluation of patient's response to treatment; frequent reassessment; and, discussions with other providers. This critical care time was performed to assess and manage the high probability of imminent, life-threatening deterioration that could result in multi-organ failure. It was exclusive of separately billable procedures and treating other patients and teaching time. Please see my other sections and the rest of the note for further information on patient assessment and treatment. Stability Stability form required: No Heart Score Heart Score: Heart Score Response (Comments) Value History Slightly Suspicious 0 EKG Repolarization Disturb 1 Age 45-64 1 Risk Factors 1 or 2 risk factors 1 Troponin 1-2 x's Normal limit 1 Total 4 I personally scribed for DOMINGO RANGEL MD ([email or web address]) on 12/25/24 at 14:48. Electronically submitted by Spring [facility] ([email or web address]). DOMINGO RANGEL MD Dec 25, 2024 14:48
[2024-12-25 15:16] LABS: Hematocrit 32.8 % (36.0-46.0); Hemoglobin 10.8 g/dL (12.2-16.2); Mean Corpuscular Hemoglobin 28.4 pg (28.0-32.0); Mean Corpuscular Volume 86.0 fL (80.0-100.0); Nucleated Red Blood Cells % 0.0 %
[2024-12-25 15:18] LABS: Chloride 105 mmol/L (98-107); Sodium 142 mmol/L (136-145)
[2024-12-25 15:19] LABS: Anion Gap 10 (5-15); Carbon Dioxide 27 mmol/L (20-31)
[2024-12-25 15:20] LABS: Calcium 9.2 mg/dL (8.7-10.4); Potassium 3.4 mmol/L (3.5-5.1)
[2024-12-25 15:24] LABS: BUN/Creatinine Ratio 14.8 (10.0-20.0); Blood Urea Nitrogen 16 mg/dL (9-23); Glucose 98 mg/dL (74-106)
[2024-12-25 15:36] LABS: Lactic Acid w/Reflex 2.3 mmol/L (0.4-2.0)
[2024-12-25] MEDS: HALOPERIDOL LACTATE 5 MG/ML INJ VIAL IM ONE ×2 (16:02→17:16)
--- NOTE | 2024-12-25 16:28 | DVH ---
INDICATION: SOB TECHNIQUE: Frontal view of the chest. COMPARISON: XY CHEST TWO VIEWS ROUTINE on DOS: 11/06/24, XY CHEST PORTABLE on DOS: 09/08/24, XY CHEST P ORTABLE on DOS: 09/07/24, XY CHEST PORTABLE on DOS: 07/29/24, XY CHEST PORTABLE on DOS: 07/28/24 FINDINGS: . Cardiomegaly. There is no evidence of pleural disease. The lungs are clear. The bony structures of the chest are intact without fracture. IMPRESSION: 1. Cardiomegaly with CHF
[2024-12-25] MEDS: FUROSEMIDE 40 MG/4 ML VIAL IV ONE (17:19)
[2024-12-25] MEDS ORDERED: MORPHINE SULFATE INJ 2 MG/ml SYRG IV PRN (19:30)
[2024-12-25] MEDS ORDERED: ACETAMINOPHEN 325 MG TAB PO PRN (19:30)
[2024-12-25] MEDS ORDERED: DEXTROSE (50%) 50ML SYRG IV PRN (19:30)
[2024-12-25] MEDS ORDERED: NITROGLYCERIN 0.4 MG SL TAB SL PRN (19:30)
[2024-12-25] MEDS: ALBUTEROL SULF 2.5 MG/0.5ML(0.5%) NEB SOLN NEB SCH (20:16)
[2024-12-25] MEDS: IPRATROPIUM BROM 0.5 MG/2.5ML INH SOL NEB SCH (20:16)
[2024-12-25 20:28] LABS: Urine Protein, UAD Negative (Negative)
[2024-12-25] MEDS: InsuLIN REG 1unit/0.01ml Soln (100units/ml) SC SCH (22:00)
[2024-12-25] MEDS: ACCU-CHEK COMFORT CURVE STRIP VI SCH (22:08)
[2024-12-25] MEDS: ATORVASTATIN 20 MG TAB PO SCH (22:09)
[2024-12-25] MEDS: SACUBITRIL-VALSARTAN 24mg/26mg TAB PO SCH (22:09)
[2024-12-25] MEDS: APIXABAN 5 MG TAB PO SCH (22:09)
[2024-12-26] VITALS (18 sets, daily range): BP systolic 126–166; BP diastolic 35–69; PULSE 54–92; RESP 14–20; TEMP 97.2–98.2; O2SAT 94–100
--- NOTE | 2024-12-26 01:27 | DVHHP2 ---
History of Present Illness Reason for Visit: Shortness for breath History of Present Illness 64-year-old female presents for evaluation of shortness for breath. Patient reports a one day history of worsening shortness for breath with associated chest tightness. She uses 2 L of nasal cannula oxygen at home. She reports using med nebs without relief of the symptoms. Past Medical History COPD, CHF, CAD, Diabetes mellitus, hypertension, dyslipidemia, CA Past Surgical History PTCA, tonsillectomy, tubal ligation, hernia repair Family History Noncontributory Smoke: No ALCOHOL: none Drugs: None Lives: with Family Review of Systems Review of Systems Review of systems are currently negative otherwise addressed in HPI. Allergies: Coded Allergies: NO KNOWN ALLERGIES (Unverified , 04/04/24) Medications Current Medications Medications Dose Ordered Sig/Jeanne Route Start Time Stop Time Status Last Admin Dose Admin Albuterol 2.5 mg QID NEB 12/25/24 18:00 12/25/24 22:21 2.5 MG Ipratropium Wilcox 0.5 mg QID NEB 12/25/24 18:00 12/25/24 22:21 0.5 MG Albuterol 2.5 mg Q6HPRN PRN NEB 12/25/24 19:30 Amiodarone HCl 200 mg DAILY PO 12/26/24 10:00 Atorvastatin Calcium 20 mg HS PO 12/25/24 22:00 12/25/24 22:09 20 MG Clopidogrel Bisulfate 75 mg DAILY PO 12/26/24 10:00 Empaglifozin 10 mg DAILY PO 12/26/24 10:00 Furosemide 20 mg BIDD IV 12/26/24 06:00 Metoprolol Succinate 25 mg DAILY PO 12/26/24 10:00 Sacubitril/ Valsartan 1 tab BID PO 12/25/24 22:00 12/25/24 22:09 1 TAB Apixaban 5 mg BID PO 12/25/24 22:00 12/25/24 22:09 5 MG Diagnostic Test (Pha) 1 strip ACHS 12/25/24 22:00 12/25/24 22:08 1 STRIP Insulin Human Regular ACHS SC 12/25/24 22:00 Dextrose 50 ml UD PRN IV 12/25/24 19:30 Temazepam 15 mg QHSP PRN PO 12/25/24 22:00 Ondansetron HCl 4 mg Q4HP PRN IV 12/25/24 19:30 Acetaminophen 650 mg Q6HP PRN PO 12/25/24 19:30 Nitroglycerin 0.4 mg Q5MINP PRN SL 12/25/24 19:30 Morphine Sulfate 2 mg Q30M PRN IV 12/25/24 19:30 Exam Vital Signs Vital Signs Date Time Temp Pulse Resp B/P (MAP) Pulse Ox O2 Delivery O2 Flow Rate FiO2 12/26/24 00:00 73 12 100/59 (73) 98 12/25/24 22:21 Nasal Cannula* 2 28 12/25/24 19:30 98.1 98.1 Exam Gen: 64-year-old female in mild distress Skin: Warm, dry, normal color and texture, no rash. HEENT: Normocephalic atraumatic, mucous membranes moist and pink. Neck: Cervical and supraclavicular nodes normal without enlargement, trachea is midline, thyroid gland is normal without masses. Pulmonary: Diminished breath sounds bilaterally Cardiac: Regular rate and rhythm. No murmur Abdomen: Soft, nontender, nondistended, bowel sounds present all 4 quadrants, no guarding, no rigidity, no organomegaly. Extremities: No cyanosis, clubbing, no edema Neuro: Cranial nerves II through XII grossly intact, normal affect and speech, no focal motor deficits. Labs/Xrays ORDERING PHYSICIAN: SINGH SALMERON MD PROCEDURE(s): ECIDC - ECHO 2D MODE CARDIAC DOP REASON: EF ORDER NUMBER(s): [id number], ACCESSION NUMBER(s): [id number] APPROVED REPORT EXAM: Two-dimensional and M-mode echocardiogram with Doppler and color Doppler. Blood Pressure: 102/62 mmHg INDICATION EF RISK FACTORS Height: 5'1", Weight: 246 DIMENSIONS LVDd 4.9 (3.8-5.7cm) LA (2D) 5.0 (1.9-4.0cm) Aortic Root 2.8 (2.0- 3.7cm) LVDs 4.1 (2.5-4.0cm) LA (MM) (1.9-4.0cm) Aortic Cusp Exc 1.8 (1.5- 2.0cm) EF (%) 30.0 (55-70%) Rt. Atrium 3.9 (1.9-4.0cm) Asc. Aorta cm IVSd 1.5 (0.7-1.1cm) RV (D) (1.8-2.4cm) PWd 1.3 (0.7-1.1cm) Mitral Valve Mitral Mitral Stenosis E wave 1.07m/s MV Mean GR. mmHg A wave 0.87m/s MV Peak GR. mmHg E/A ratio 1.2 2D MVA cm2 DECEL Time 180ms PRESS 1/2 Time ms Aortic Valve Aortic Valve Aortic Stenosis V1 0.96m/s AO Mean GR. 5mmHg V2 1.49m/s AO Peak GR. 9mmHg LVOT Diameter 1.9 (1.8-2.4cm) Doppler LILIANA 1.83cm2 Pulmonic Valve V2 0.99m/s LEFT VENTRICLE The left ventricle is of normal size. Wall thickness is bddm-tl-fqnllseacd increased. Ejection fraction is decreased and is estimated at 25-30% based on visual estimate. There is [id number]-[id number] global hypokinesis. There is a grade II diastolic dysfunction. RIGHT VENTRICLE The right ventricle is of normal size. Right ventricular systolic function is normal. ATRIA The left atrium is severely dilated in size. The right atrium was of normal size. Not well visualized. MITRAL VALVE There is moderate to severe mitral annular calcification. There is mild central mitral regurgitation. There is mild mitral stenosis with a mean gradient of 5 mm Hg at a heart rate of 82 beats per minute. PULMONIC VALVE Likely normal. TRICUSPID VALVE Normal structure and function. There is trace tricuspid regurgitation. PA systolic pressure is not adequately estimated. AORTIC VALVE The leaflets are sclerotic. No significant stenosis or regurgitation. GREAT VESSELS Aortic root is of normal size. Proximal ascending aorta is not visualized. PERICARDIAL EFFUSION There is small pericardial effusion. IVC is dilated in size. Conclusion Normal left ventricular size with an ejection fraction of 25-30%. There is xsigzrcg-qr-uqgfxj global hypokinesis of the left ventricle. Hqiu-jk-dcqrlkjn concentric left ventricular hypertrophy. Normal right ventricular size and systolic function. Grade II diastolic dysfunction. Ibtleehg-lp-rxnioy mitral annular calcification with mild mitral stenosis. Small pericardial effusion. PA systolic pressure is not adequately estimated. SIGNED BY: KANDY PRICE MD SIGNED DATE/TIME: 05/29/24 1320 ORDERING PHYSICIAN: DOMINGO OROZCO MD PROCEDURE(s): CXRP - CHEST PORTABLE REASON: SOB ORDER NUMBER(s): [id number], ACCESSION NUMBER(s): [id number] INDICATION: SOB TECHNIQUE: Frontal view of the chest. COMPARISON: XY CHEST TWO VIEWS ROUTINE on DOS: 11/06/24, XY CHEST PORTABLE on DOS: 09/08/24, XY CHEST PORTABLE on DOS: 09/07/24, XY CHEST PORTABLE on DOS: 07/29/24, XY CHEST PORTABLE on DOS: 07/28/24 FINDINGS: . Cardiomegaly. There is no evidence of pleural disease. The lungs are clear. The bony structures of the chest are intact without fracture. IMPRESSION: 1. Cardiomegaly with CHF Labs Test 12/25/24 18:23 12/25/24 18:10 12/25/24 14:57 Range/Units Urine Color Yellow Yellow Urine Clarity Clear Clear Urine pH 7.5 5.0-9.0 Urine Specific [place] 1.016 1.001-1.035 Urine Protein Negative Negative Urine Ketones Negative Negative Urine Blood Negative Negative /uL Urine Nitrite Negative Negative Urine Bilirubin Negative Negative Urine Urobilinogen Normal Negative mg/dL Urine Leukocyte Esterase 1+ Negative /uL Urine RBC 1 0 - 4 /hpf Urine Microscopic WBC 9 H 0-5 /HPF Urine Squamous Epithelial Cells Few <5 /hpf Urine Bacteria None seen None Seen /hpf Urine Glucose 3+ H Normal mg/dL Lactic Acid Level 0.9 0.4-2.0 mmol/L Troponin I High Sensitivity 20 </=34 ng/L White Blood Count 4.4 4.4-10.8 10^3/uL Red Blood Count 3.81 L 4.0-5.20 10^6/uL Hemoglobin 10.8 L 12.2-16.2 g/dL Hematocrit 32.8 L 36.0-46.0 % Mean Corpuscular Volume 86.0 80.0-100.0 fL Mean Corpuscular Hemoglobin 28.4 28.0-32.0 pg Mean Corpuscular Hemoglobin Concent 33.0 32.0-36.0 g/dL Red Cell Distribution Width 15.5 H 11.8-14.3 % Platelet Count 189 140-450 10^3/uL Mean Platelet Volume 7.8 6.9-10.8 fL Neutrophils (%) (Auto) 72.3 37.0-80.0 % Lymphocytes (%) (Auto) 16.6 10.0-50.0 % Monocytes (%) (Auto) 6.3 0.0-12.0 % Eosinophils (%) (Auto) 4.1 0.0-7.0 % Basophils (%) (Auto) 0.7 0.0-2.0 % Neutrophils # (Auto) 3.2 1.6-8.6 10 ^3/uL Lymphocytes # (Auto) 0.7 0.4-5.4 10 ^3/uL Monocytes # (Auto) 0.3 0-1.3 10 ^3/uL Eosinophils # (Auto) 0.2 0-0.8 10 ^3/uL Basophils # (Auto) 0 0-0.2 10 ^3/uL Nucleated Red Blood Cells 0.0 % Sodium Level 142 136-145 mmol/L Potassium Level 3.4 L 3.5-5.1 mmol/L Chloride Level 105 98-107 mmol/L Carbon Dioxide Level 27 20-31 mmol/L Anion Gap 10 5-15 Blood Urea Nitrogen 16 9-23 mg/dL Creatinine 1.08 H 0.550-1.02 mg/dL Glomerular Filtration Rate Calc 57 >90 mL/min BUN/Creatinine Ratio 14.8 10.0-20.0 Serum Glucose 98 74-106 mg/dL Calcium Level 9.2 8.7-10.4 mg/dL B-Type Natriuretic Peptide 812.23 0-100 pg/mL SEPSIS Sepsis Screen Date sepsis recognized/suspect: Dec 25, 2024 Time Sepsis recognized/suspect: 2012 Recent Procedure: No On Antibiotic Therapy: No Respiratory Rate >20: No Heart Rate >90: No Temp<36 C (96.8 F) or >38.3 C: No SBP <90 or MAP <65 mmHG: No New Acute Mental Status Change: No Is the patient on CPAP, BIPAP,: No Physician Orders Albuterol Medneb (Ventolin Medneb) (12/25/24 18:00) Ipratropium Medneb (Atrovent Medneb) (12/25/24 18:00) Insert/Manage Urinary Catheter QSHIFT (12/25/24 18:01) Albuterol Medneb (Ventolin Medneb) (12/25/24 19:30) Amiodarone Tablet (Cordarone Tablet) (12/26/24 10:00) Atorvastatin (Lipitor) (12/25/24 22:00) Clopidogrel Bisulfate (Plavix) (12/26/24 10:00) Empagliflozin (Jardiance) (12/26/24 10:00) Furosemide Injection (Lasix Injection) (12/26/24 06:00) Metoprolol Xl Succinate (Toprol Xl) (12/26/24 10:00) Sacubitril-Valsartan (Entresto 24-26 Mg (12/25/24 22:00) Apixaban (Eliquis) (12/25/24 22:00) Basic Metabolic Panel (12/26/24 04:00) Glucose Blood (Accu-Chek Comfort Curve T (12/25/24 22:00) Insulin R (Human) (Insulin R) (12/25/24 22:00) Dextrose 50% Syringe (12/25/24 19:30) Admit (12/25/24 19:24) Temazepam (Restoril) (12/25/24 22:00) Ondansetron Hcl (Zofran) (12/25/24 19:30) Complete Blood Count (12/26/24 04:00) Cardiac Diet-2gna,Lofat,Lochol (12/26/24 Breakfast) Condition: Fair (12/25/24 19:24) Acetaminophen Tablet (Tylenol Tablet) (12/25/24 19:30) Bedrest With Bathroom Privileg (12/25/24:24) Nitroglycerin Sublingual (Ntrostat Subli (12/25/24 19:30) Morphine Sulfate Injection (12/25/24:30) Stat Ekg For Chest Pain (12/25/24:24) Notify Of Changes From Base (12/25/24 19:24) [employer] Equipment Repairer For 24 Hours (12/25/24 19:24) Emergency Dysrhythmia Protocol (12/25/24 19:24) Rhythm Strips Once Every Shift (12/25/24 19:24) Oxygen By Nasal Cannula (12/25/24 19:24) Vital Signs Date Time Temp Pulse Resp B/P (MAP) Pulse Ox O2 Delivery O2 Flow Rate FiO2 12/26/24 00:00 73 12 100/59 (73) 98 12/25/24 22:27 66 16 99 12/25/24 22:21 66 15 100 12/25/24 22:21 100 Nasal Cannula* 2 28 12/25/24 22:21 100 Nasal Cannula 2.0 12/25/24 22:00 66 12 109/60 (76) 100 12/25/24 20:22 69 20 100 12/25/24 20:16 100 Nasal Cannula* 2 28 12/25/24 20:16 100 Nasal Cannula 2.0 12/25/24 20:16 68 17 100 12/25/24 20:00 71 12/25/24 19:30 98.1 69 19 109/60 (76) 98 98.1 12/25/24 19:30 69 19 98 Nasal Cannula* 2 28 12/25/24 19:25 98.0 68 17 109/58 99 2.0 28 98.0 12/25/24 18:00 98.0 68 20 109/58 (75) 100 98.0 Laboratory Tests Test 12/25/24 14:57 12/25/24 18:10 Lactic Acid Level 2.3 mmol/L (0.4-2.0) *H 0.9 mmol/L (0.4-2.0) White Blood Count 4.4 10^3/uL (4.4-10.8) Medications Medications Dose Ordered Sig/Jeanne Route Start Time Stop Time Status Last Admin Dose Admin Albuterol 2.5 mg QID NEB 12/25/24 18:00 12/25/24 22:21 2.5 MG Apixaban 5 mg BID PO 12/25/24 22:00 12/25/24 22:09 5 MG Atorvastatin Calcium 20 mg HS PO 12/25/24 22:00 12/25/24 22:09 20 MG Diagnostic Test (Pha) 1 strip ACHS 12/25/24 22:00 12/25/24 22:08 1 STRIP Furosemide 40 mg ONCE ONCE IV 12/25/24 17:00 12/25/24 17:01 DC 12/25/24 17:19 40 MG Haloperidol Lactate 5 mg ONCE ONCE IM 12/25/24 16:00 12/25/24 16:03 DC 12/25/24 16:02 5 MG Ipratropium Wilcox 0.5 mg QID NEB 12/25/24 18:00 12/25/24 22:21 0.5 MG Sacubitril/ Valsartan 1 tab BID PO 12/25/24 22:00 12/25/24 22:09 1 TAB Assessment/Plan Assessment/Plan Assessment Acute on chronic congestive heart failure COPD Hypertension History of CA Diabetes mellitus Plan Admit the patient to Med surge to the hospitalist Med nebs IV Lasix Resume home medications Continue treatment per orders. Plan discussed with: Patient My Orders Orders - MECHELLE LOPEZ Procedure Category Date Status Time Albuterol Medneb PHA 12/25/24 In Process (Ventolin Medneb) 19:30 Amiodarone Tablet PHA 12/26/24 In Process (Cordarone Tablet) 10:00 Atorvastatin (Lipitor) PHA 12/25/24 In Process 22:00 Clopidogrel Bisulfate PHA 12/26/24 In Process (Plavix) 10:00 Empagliflozin PHA 12/26/24 In Process (Jardiance) 10:00 Furosemide Injection PHA 12/26/24 In Process (Lasix Injection) 06:00 Metoprolol Xl PHA 12/26/24 In Process Succinate (Toprol Xl) 10:00 Sacubitril-Valsartan PHA 12/25/24 In Process (Entresto 24-26 Mg 22:00 Apixaban (Eliquis) PHA 12/25/24 In Process 22:00 Basic Metabolic Panel LAB 12/26/24 Logged 04:00 Glucose Blood PHA 12/25/24 In Process (Accu-Chek Comfort 22:00 Insulin R (Human) PHA 12/25/24 In Process (Insulin R) 22:00 Dextrose 50% Syringe PHA 12/25/24 In Process 19:30 Admit ADMIT 12/25/24 Transmitted 19:24 Temazepam (Restoril) PHA 12/25/24 In Process 22:00 Ondansetron Hcl PHA 12/25/24 In Process (Zofran) 19:30 Complete Blood Count LAB 12/26/24 Logged 04:00 Cardiac DIET 12/26/24 Transmitted Diet-2gna,Lofat,Lochol Breakfast Condition: Fair [facility] 12/25/24 In Process 19:24 Acetaminophen Tablet PHA 12/25/24 In Process (Tylenol Tablet) 19:30 Bedrest With Bathroom [facility] 12/25/24 In Process Privileg 19:24 Nitroglycerin [facility] 12/25/24 In Process Sublingual (Ntrostat 19:30 Morphine Sulfate [facility] 12/25/24 In Process Injection 19:30 Stat Ekg For Chest [facility] 12/25/24 In Process Pain 19:24 Notify Md Of Changes [facility] 12/25/24 In Process From Base 19:24 [employer] Equipment Rep[employer]r For [facility] 12/25/24 In Process 24 Hours 19:24 Emergency Dysrhythmia [facility] 12/25/24 In Process Protocol 19:24 Rhythm Strips Once [facility] 12/25/24 In Process Every Shift 19:24 Oxygen By Nasal RT 12/25/24 Transmitted Cannula 19:24 Date of Service: Dec 25, 2024 Billing Provider: MECHELLE LOPEZ Common Visit Codes: [id number] INP/OBS CARE (HIGH) MECHELLE LOPEZ Dec 26, 2024 01:27
[2024-12-26] MEDS: ALBUTEROL SULF 2.5 MG/0.5ML(0.5%) NEB SOLN NEB PRN (02:06)
[2024-12-26] MEDS: TEMAZEPAM 15 MG CAP PO PRN (02:24)
[2024-12-26 06:05] LABS: Hematocrit 33.5 % (36.0-46.0); Hemoglobin 11.1 g/dL (12.2-16.2); Mean Corpuscular Hemoglobin 28.7 pg (28.0-32.0); Mean Corpuscular Volume 86.6 fL (80.0-100.0); Nucleated Red Blood Cells % 0.0 %
[2024-12-26] MEDS: FUROSEMIDE 20 MG/2 ML VIAL IV SCH (06:05)
[2024-12-26 06:14] LABS: Anion Gap 10 (5-15); Carbon Dioxide 30 mmol/L (20-31); Chloride 104 mmol/L (98-107); Sodium 144 mmol/L (136-145)
[2024-12-26 06:15] LABS: Calcium 9.4 mg/dL (8.7-10.4)
[2024-12-26 06:20] LABS: BUN/Creatinine Ratio 11.1 (10.0-20.0); Blood Urea Nitrogen 14 mg/dL (9-23)
[2024-12-26 06:23] LABS: Glucose 137 mg/dL (74-106); Potassium 3.3 mmol/L (3.5-5.1)
[2024-12-26] MEDS ORDERED: PANT40TA2 PO (08:37)
[2024-12-26] MEDS: ONDANSETRON HCL 4 MG/2 ML VIAL IV PRN (08:48)
[2024-12-26] MEDS: EMPAGLIFLOZIN 10 MG TAB PO SCH (09:46)
[2024-12-26] MEDS: POTASSIUM EFFERVESENT TAB 25 MEQ PO ONE (09:46)
[2024-12-26] MEDS: CLOPIDOGREL BISULFATE 75 MG TAB PO SCH (09:46)
[2024-12-26] MEDS: METOPROLOL SUCCINATE XL 50 MG TAB PO SCH (09:47)
[2024-12-26] MEDS: AMIODARONE HCL 200 MG TAB PO SCH (09:48)
[2024-12-26] MEDS: cefTRIAXone 1GM/50ML D5W 50 ML IV ONE (13:30)
[2024-12-26] MEDS: AZITHROMYCIN 500MG/ 250ML 250 ML IV ONE (14:12)
--- NOTE | 2024-12-26 17:43 | DVHPNRES ---
Progress Note Date Seen: Dec 26, 2024 Resident Creating Document: SHERLYN APONTE Medical Necessity Reason Pt with a Central, PICC or Fol: No Subjective Review of Systems This is 64-year-old female with past medical history of CAD, CHF, COPD, Asthma, DM, HLD, HTN, IA, Anxiety, Depression presents to the ED via EMS with acute worsening shortness of breath and chest tightness, onset 2 days ago. Despite using nebulized medications, symptoms have not improved. Patient reported that she was recently admitted to [facility] for 6 days with same symptoms and diagnosed with pneumonia and discharged on 12/23/24. This morning, she noted increased respiratory distress and called 911. She reports intermittent chest pain but denies dizziness, nausea, vomiting, diarrhea, fever, chills, dysuria, or hematuria. Patient uses 2 L nasal cannula oxygen at home. Patient uses a walker when walking. Past medical history: CAD, CHF, COPD, Asthma, DM, HLD, HTN, IA, Anxiety, Depression Past surgical history: Hernia Repair, PTCA, Tonsillectomy, Tubal Ligation Past Hospitalization: [facility] for pneumonia Social & Personal history: Smoke: No ALCOHOL: none Drugs: None Lives: with Family Allergies: Coded Allergies: NO KNOWN ALLERGIES (Unverified , 04/04/24) Patient seen and examined at bedside. Patient is alert and oriented to time, place person and responding to all questions. Constitutional: Weight loss. denies: chills, diaphoresis, fatigue, fever, malaise, sweats, weakness, others Eyes: No Pain, No Vision change, No Conjunctivae inflammation, No Eyelid inflammation, No Other, No Redness ENT: No Ear pain, No Ear discharge, No Nose pain, No Nose discharge, No Nose congestion, No Mouth pain, No Mouth swelling, No Throat pain, No Throat swelling, No Other Cardiovascular: Chest Pain, No Palpitations, No Orthopnea, No Paroxysmal No Dyspnea, No Edema, No Lt Headedness, No Other Respiratory: Shortness of breath. No Cough, No Dry, No SOB with exertion, No Wheezing, No Hemoptysis, No Pleuritic Pain, No Sputum, No Other Gastrointestinal: No Nausea, No Vomiting, No Abdominal Pain, No Diarrhea, No Constipation, No Melena, No Hematochezia, No Other Genitourinary: No Dysuria, No Frequency, No Incontinence, No Hematuria, No Retention, No Other Neurological: Dizziness. denies: fainting, headache, left sided numbness, left sided weakness, numbness, paresthesia, pre-existing deficit, right sided numbness, right sided weakness, seizure, speech problems, tingling, tremors, weakness, others Musculoskeletal: No other, No neck pain, No shoulder pain, No arm pain, No back pain, No hand pain, No leg pain, No foot pain Skin: No Rash, No Lesions, No Jaundice, No Bruising, No Other Psychiatric: Anxiety, Depression. denies: bipolar disorder, hopeless, panic disorder, schizophrenia, sleepless, suicidal, others Objective vital signs Vital Sign Date Time Temp Pulse Resp B/P (MAP) Pulse Ox O2 Delivery O2 Flow Rate FiO2 12/26/24 17:05 106/76 12/26/24 16:10 97.4 54 18 96 97.4 12/26/24 12:05 Nasal Cannula* 2 28 Total Intake and Output 12/25/24 12/25/24 12/26/24 15:00 23:00 07:00 Output Total 100 ml 2500 ml Balance -100 ml -2500 ml medications Current Medications Medications Dose Ordered Sig/Jeanne Route Start Time Stop Time Status Last Admin Dose Admin Albuterol 2.5 mg QID [facility] 12/25/24 18:00 12/26/24 12:05 2.5 MG Ipratropium Mullins 0.5 mg QID [facility] 12/25/24 18:00 12/26/24 12:05 0.5 MG Albuterol 2.5 mg Q6HPRN PRN [facility] 12/25/24 19:30 12/26/24 02:06 2.5 MG Amiodarone HCl 200 mg DAILY PO 12/26/24 10:00 12/26/24 09:48 200 MG Atorvastatin Calcium 20 mg HS PO 12/25/24 22:00 12/25/24 22:09 20 MG Clopidogrel Bisulfate 75 mg DAILY PO 12/26/24 10:00 12/26/24 09:46 75 MG Empaglifozin 10 mg DAILY PO 12/26/24 10:00 12/26/24 09:46 10 MG Furosemide 20 mg BIDD IV 12/26/24 06:00 12/26/24 17:05 20 MG Metoprolol Succinate 25 mg DAILY PO 12/26/24 10:00 12/26/24 09:47 25 MG Sacubitril/ Valsartan 1 tab BID PO 12/25/24 22:00 12/26/24 09:46 1 TAB Apixaban 5 mg BID PO 12/25/24 22:00 12/26/24 09:45 5 MG Diagnostic Test (Pha) 1 strip ACHS 12/25/24 22:00 12/26/24 17:05 1 STRIP Insulin Human Regular ACHS SC 12/25/24 22:00 12/26/24 17:09 4 UNITS Dextrose 50 ml UD PRN IV 12/25/24 19:30 Temazepam 15 mg QHSP PRN PO 12/25/24 22:00 12/26/24 02:24 15 MG Ondansetron HCl 4 mg Q4HP PRN IV 12/25/24 19:30 12/26/24 08:48 4 MG Acetaminophen 650 mg Q6HP PRN PO 12/25/24 19:30 Nitroglycerin 0.4 mg Q5MINP PRN SL 12/25/24 19:30 Morphine Sulfate 2 mg Q30M PRN IV 12/25/24 19:30 Ceftriaxone Sodium 50 ml @ 100 mls/hr DAILY@09 IV 12/27/24 09:00 Azithromycin 250 ml @ 125 mls/hr DAILY IV 12/27/24 10:00 Examination General Appearance: Cooperative. Well developed. Well nourished. NAD Head Exam: Normal inspection Neck Exam: Normal inspection. Non-tender. Normal alignment Pulmonary/Respiratory: Chest non-tender. Clear bilateral breath sounds, no crackles, no wheezing. Cardiovascular/Chest: Regular rate and rhythm. No murmurs. No JVD. Peripheral Pulses: 2+ Radial (R). 2+ Radial (L). 2+ Pedal (R). 2+ Pedal (L) Abdominal Exam: Well-healed surgical scar noted superior to the umbilicus from prior hernia repair. Right-sided tenderness. Normal bowel sounds. Soft. normal abdomen, no visible veins, Nontender. No hepatospenomegaly. No masses Ankle Exam: Negative ankle edema Lower extremities: Mild lower extremity edema Neuro/Mental Status: A&O x4. Coherent. Thoughts/Psych: Normal thought pattern. Appropriate mood and affect. Good judgement and insight Skin Exam: Normal inspection. Normal color. Warm. Dry laboratory and microbiology Laboratory Tests 12/26/24 05:12 Test 12/26/24 05:12 Range/Units Serum Glucose 137 H 74-106 mg/dL Microbiology Date/Time Source Procedure Growth Status 12/25/24 14:57 Blood Blood Culture - Preliminary NO GROWTH AFTER 24 HOURS OF INCUBATION. Resulted Labs and/or images reviewed: Labs reviewed by me, Image(s) reviewed by me Problem List/Assessment/Plan Problem List/Assessment/Plan # Acute on chronic heart failure with reduced ejection fraction 25-30% on echocardiogram done in May 2024 # CAD, s/p PTCA x4 JOE # atrial fibrillation # hypercoagulable state due to above -BNP: 812 -Chest X-Ray: Cardiomegaly with CHF.There is no evidence of pleural disease. The lungs are clear. The bony structures of the chest are intact without fracture. -Plavix -IV Lasix -Amiodarone -Eliguis 5 mg -zofran -tylenol -nitroglycerin - aspirin, Plavix - Entresto # community-acquired pneumonia, Gram-positive versus Gram-negative -Blood Culture Preliminary: NO GROWTH AFTER 24 HOURS OF INCUBATION. -Ceftriaxone -Azithromycin # JES likely hemodynamically mediated/VMN possible cardiorenal syndrome? # questionable COPD exacerbation # History of Asthma -Albuterol -Ipratropium bromide # essential hypertension -Sacubitril-Valsartan -monitor # dyslipidemia -Lipiotor -monitor # Diabetes mellitus -Jardiance -Insulin Human Regular -Dextrose -monitor # Insomnia -Restoril DVT prophylaxis: Eliquis 5mg Goals of care: Full code, discussed for >16 minutes on 12/26/24 Plan discussed with patient Plan discussed with Dr. Gorman Plan discussed with: Patient, Other Date of Service: Dec 26, 2024 Billing Provider: DAVID GORMAN MD Common Visit Codes: [id number] INP/OBS CARE(HIGH) Secondary Visit Codes: [id number] CARE PLAN 30 MINUTES SHERLYN APONTE RESIDENT Dec 26, 2024 17:43 QI BUTLER RESIDENT Dec 27, 2024 06:37 DAVID GORMAN MD Dec 28, 2024 21:29
[2024-12-27] VITALS (19 sets, daily range): BP systolic 99–143; BP diastolic 50–70; PULSE 66–88; RESP 16–20; TEMP 97.7–98.7; O2SAT 94–100
[2024-12-27 06:00] LABS: Hematocrit 35.4 % (36.0-46.0); Hemoglobin 11.9 g/dL (12.2-16.2); Mean Corpuscular Hemoglobin 28.8 pg (28.0-32.0); Mean Corpuscular Volume 85.9 fL (80.0-100.0); Nucleated Red Blood Cells % 0.3 %
[2024-12-27 06:01] LABS: Anion Gap 11 (5-15); Carbon Dioxide 28 mmol/L (20-31); Chloride 103 mmol/L (98-107); Potassium 3.7 mmol/L (3.5-5.1); Sodium 142 mmol/L (136-145)
[2024-12-27 06:02] LABS: Calcium 9.1 mg/dL (8.7-10.4)
[2024-12-27 06:07] LABS: BUN/Creatinine Ratio 13.0 (10.0-20.0); Blood Urea Nitrogen 19 mg/dL (9-23)
[2024-12-27 06:08] LABS: Glucose 139 mg/dL (74-106)
[2024-12-27] MEDS: cefTRIAXone 1GM/50ML D5W 50 ML IV SCH (08:26)
[2024-12-27] MEDS: AZITHROMYCIN 500MG/ 250ML 250 ML IV SCH (10:00)
[2024-12-27] MEDS: ALBUTEROL SULF 2.5 MG/0.5ML(0.5%) NEB SOLN NEB SCH (10:56)
[2024-12-27] MEDS: IPRATROPIUM BROM 0.5 MG/2.5ML INH SOL NEB SCH (10:56)
[2024-12-27 13:32] LABS: COVID19 ANTIGEN SOFIA FIA NEGATIVE (NEGATIVE)
--- NOTE | 2024-12-27 16:56 | DVHPNRES ---
Progress Note Date Seen: Dec 27, 2024 Resident Creating Document: SHERLYN APONTE Medical Necessity Reason Pt with a Central, PICC or Fol: No Subjective Review of Systems This is a 64-year-old female with past medical history of CAD, CHF, COPD, Asthma, DM, HLD, HTN, GA, Anxiety, Depression presents to the ED via EMS with acute worsening shortness of breath and chest tightness, onset 2 days ago. Despite using nebulized medications, symptoms have not improved. Patient reported that she was recently admitted to [facility] for 6 days with same symptoms and diagnosed with pneumonia and discharged on 12/23/24. Patient has a known history of chronic heart failure with reduced ejection fraction (HFrEF), with an echocardiogram in May 2024 showing an ejection fraction of 2530%. This morning, she noted increased respiratory distress and called 911. She reports intermittent chest pain but denies dizziness, nausea, vomiting, diarrhea, fever, chills, dysuria, or hematuria. Patient uses 2 L nasal cannula oxygen at home. Patient uses a walker when walking. Patient reports no new symptoms today except for a mild cough. Patient complains with easy bruising. She denies nausea, vomiting, chest pain, shortness of breath or other complaints. Patient vocalized understanding of her medications and care plan. She reports tolerating oral intake including nutritional supplements. Objective vital signs Vital Sign Date Time Temp Pulse Resp B/P (MAP) Pulse Ox O2 Delivery O2 Flow Rate FiO2 12/27/24 14:30 88 18 100 12/27/24 14:24 Nasal Cannula 2.0 12/27/24 14:24 28 12/27/24 12:26 98.7 143/61 (88) 98.7 Total Intake and Output 12/26/24 12/26/24 12/27/24 15:00 23:00 07:00 Intake Total 0 ml 640 ml Output Total 300 ml Balance -300 ml 640 ml medications Current Medications Medications Dose Ordered Sig/Jeanne Route Start Time Stop Time Status Last Admin Dose Admin Amiodarone HCl 200 mg DAILY PO 12/26/24 10:00 12/27/24 09:57 200 MG Atorvastatin Calcium 20 mg HS PO 12/25/24 22:00 12/26/24 21:24 20 MG Clopidogrel Bisulfate 75 mg DAILY PO 12/26/24 10:00 12/27/24 09:57 75 MG Empaglifozin 10 mg DAILY PO 12/26/24 10:00 12/27/24 09:57 10 MG Metoprolol Succinate 25 mg DAILY PO 12/26/24 10:00 12/27/24 09:58 25 MG Sacubitril/ Valsartan 1 tab BID PO 12/25/24 22:00 12/27/24 09:53 1 TAB Apixaban 5 mg BID PO 12/25/24 22:00 12/27/24 09:57 5 MG Diagnostic Test (Pha) 1 strip ACHS 12/25/24 22:00 12/27/24 16:45 1 STRIP Insulin Human Regular ACHS SC 12/25/24 22:00 12/27/24 12:00 3 UNITS Dextrose 50 ml UD PRN IV 12/25/24 19:30 Temazepam 15 mg QHSP PRN PO 12/25/24 22:00 12/26/24 21:24 15 MG Ondansetron HCl 4 mg Q4HP PRN IV 12/25/24 19:30 12/26/24 08:48 4 MG Acetaminophen 650 mg Q6HP PRN PO 12/25/24 19:30 Nitroglycerin 0.4 mg Q5MINP PRN SL 12/25/24 19:30 Morphine Sulfate 2 mg Q30M PRN IV 12/25/24 19:30 Ceftriaxone Sodium 50 ml @ 100 mls/hr DAILY@09 IV 12/27/24 09:00 12/27/24 08:26 100 MLS/HR Azithromycin 250 ml @ 125 mls/hr DAILY IV 12/27/24 10:00 12/27/24 10:00 125 MLS/HR Ipratropium [place] 0.5 mg Q4HR NEB 12/27/24 10:30 12/27/24 14:24 0.5 MG Albuterol 2.5 mg Q4HR NEB 12/27/24 10:30 12/27/24 14:24 2.5 MG Furosemide 20 mg DAILY IV 12/28/24 10:00 Examination General Appearance: Cooperative. Well developed. Well nourished. NAD Head Exam: Normal inspection Neck Exam: Normal inspection. Non-tender. Normal alignment Pulmonary/Respiratory: Chest non-tender. Clear bilateral breath sounds, no crackles, no wheezing. Decreased air entry bilaterally Cardiovascular/Chest: Regular rate and rhythm. No murmurs. No JVD. Peripheral Pulses: 2+ Radial (R). 2+ Radial (L). 2+ Pedal (R). 2+ Pedal (L) Abdominal Exam: Well-healed surgical scar noted superior to the umbilicus from prior hernia repair. Right-sided tenderness. Normal bowel sounds. Soft. normal abdomen, no visible veins, Nontender. No hepatosplenomegaly. No masses Ankle Exam: Negative ankle edema Lower extremities: Mild lower extremity edema Neuro/Mental Status: A&O x4. Coherent. Thoughts/Psych: Normal thought pattern. Appropriate mood and affect. Good judgement and insight Skin Exam: Normal inspection. Normal color. Warm. Dry laboratory and microbiology Laboratory Tests 12/27/24 04:55 Test 12/27/24 04:55 Range/Units Serum Glucose 139 H 74-106 mg/dL Microbiology Date/Time Source Procedure Growth Status 12/25/24 14:57 Blood Blood Culture - Preliminary NO GROWTH AFTER 48 HOURS OF INCUBATION. Resulted Labs and/or images reviewed: Labs reviewed by me (RN), Image(s) reviewed by me (RN) Problem List/Assessment/Plan Problem List/Assessment/Plan # Acute on chronic systolic heart failure with reduced ejection fraction 25-30% on echocardiogram done in May 2024 # CAD, s/p PTCA x4 JOE # atrial fibrillation; paroxysmal # hypercoagulable state due to above # essential hypertension -BNP: 812 -Chest X-Ray: Cardiomegaly with CHF -Plavix -IV Lasix -Amiodarone -Eliguis 5 mg -zofran -Tylenol -nitroglycerin - aspirin, Plavix - Entresto -IV diuresis # acute on chronic hypoxic respiratory failure due to pulmonary congestion and suspected COPD/asthma exacerbation secondary to suspected community-acquired pneumonia, Gram-positive versus Gram-negative # asthma/COPD exacerbation -Albuterol Ipratropium bromide q6 jeanne -Blood Culture Preliminary: NO GROWTH AFTER 24 HOURS OF INCUBATION. -Ceftriaxone -Azithromycin -continue oxygen therapy as needed; currently on 3 L/min via nasal cannula; at home a 2 L per minute via nasal cannula # JES likely hemodynamically mediated/VMN possible cardiorenal syndrome? # dyslipidemia -Lipitor -monitor # Diabetes mellitus -Jardiance -Insulin Human Regular -Dextrose -monitor # Insomnia -Restoril DVT prophylaxis: Eliquis 5mg Goals of care discussed with the patient for 20 minutes: Full code Plan discussed with patient Plan discussed with Dr. Yeboah Plan discussed with: Patient, Other (RN) Date of Service: Dec 27, 2024 Billing Provider: MARYAM YEBOAH MD Common Visit Codes: [id number] INP/OBS CARE(HIGH) Secondary Visit Codes: [id number] CARE PLAN 30 MINUTES (20 minutes) SHERLYN APONTE RESIDENT Dec 27, 2024 16:56 QI BUTLER RESIDENT Dec 27, 2024 19:22 MARYAM YEBOHA MD Dec 30, 2024 07:10
[2024-12-27] MEDS ORDERED: MELATONIN 5 MG TAB PO PRN (20:00)
[2024-12-28] VITALS (21 sets, daily range): BP systolic 111–155; BP diastolic 60–84; PULSE 66–78; RESP 16–22; TEMP 96.2–98.4; O2SAT 90–100
[2024-12-28 08:01] LABS: Anion Gap 11 (5-15); Carbon Dioxide 28 mmol/L (20-31); Chloride 102 mmol/L (98-107); Potassium 3.6 mmol/L (3.5-5.1); Sodium 141 mmol/L (136-145)
[2024-12-28 08:03] LABS: Calcium 9.2 mg/dL (8.7-10.4)
[2024-12-28 08:07] LABS: BUN/Creatinine Ratio 12.0 (10.0-20.0); Blood Urea Nitrogen 20 mg/dL (9-23)
[2024-12-28 08:08] LABS: Glucose 149 mg/dL (74-106)
[2024-12-28 08:13] LABS: Hematocrit 34.8 % (36.0-46.0); Hemoglobin 11.6 g/dL (12.2-16.2); Mean Corpuscular Hemoglobin 28.7 pg (28.0-32.0); Mean Corpuscular Volume 86.1 fL (80.0-100.0); Nucleated Red Blood Cells % 0.0 %
[2024-12-28] MEDS: FUROSEMIDE 20 MG/2 ML VIAL IV SCH (13:44)
--- NOTE | 2024-12-28 17:07 | DVHPN2 ---
Subjective I am assuming the care of the patient from today onwards. Patient's daughter at bedside. Patient is currently on 4 L of oxygen. Also patient has a anxiety disorder requesting her home medications lorazepam. Changes from previous H/P or p: No Changes Objective Vitals Vital Signs Date Time Temp Pulse Resp B/P (MAP) Pulse Ox O2 Delivery O2 Flow Rate FiO2 12/28/24 16:51 96.9 66 20 111/84 (93) 96 96.9 12/28/24 14:15 Nasal Cannula* 2 28 Intake/Output Intake and Output 12/28/24 07:00 Intake Total 1338 ml Output Total 3000 ml Balance -1662 ml Intake Oral 1038 ml IV Total 300 ml Output Urine Total 3000 ml # Bowel Movements 1 Exam HEENT pupils are reactive Neck is supple CV is S1-S2 regular rate and rhythm Respiratory diminished breath sounds bilateral lung bases GI positive bowel sound, soft nondistended nontender no guarding no rigidity Extremity no edema [employer] no motor deficit Medications Current Medications Medications Dose Ordered Sig/Jeanne Route Start Time Stop Time Status Last Admin Dose Admin Amiodarone HCl 200 mg DAILY PO 12/26/24 10:00 12/28/24 13:10 200 MG Atorvastatin Calcium 20 mg HS PO 12/25/24 22:00 12/27/24 22:05 20 MG Clopidogrel Bisulfate 75 mg DAILY PO 12/26/24 10:00 12/28/24 13:16 75 MG Empaglifozin 10 mg DAILY PO 12/26/24 10:00 12/28/24 13:11 10 MG Metoprolol Succinate 25 mg DAILY PO 12/26/24 10:00 12/28/24 13:16 25 MG Sacubitril/ Valsartan 1 tab BID PO 12/25/24 22:00 12/28/24 13:10 1 TAB Apixaban 5 mg BID PO 12/25/24 22:00 12/28/24 13:11 5 MG Diagnostic Test (Pha) 1 strip ACHS 12/25/24 22:00 12/28/24 11:30 1 STRIP Insulin Human Regular ACHS SC 12/25/24 22:00 12/28/24 11:30 3 UNITS Dextrose 50 ml UD PRN IV 12/25/24 19:30 Temazepam 15 mg QHSP PRN PO 12/25/24 22:00 12/28/24 00:14 15 MG Ondansetron HCl 4 mg Q4HP PRN IV 12/25/24 19:30 12/26/24 08:48 4 MG Acetaminophen 650 mg Q6HP PRN PO 12/25/24 19:30 Nitroglycerin 0.4 mg Q5MINP PRN SL 12/25/24 19:30 Morphine Sulfate 2 mg Q30M PRN IV 12/25/24 19:30 Ceftriaxone Sodium 50 ml @ 100 mls/hr DAILY@09 IV 12/27/24 09:00 12/28/24 12:37 100 MLS/HR Azithromycin 250 ml @ 125 mls/hr DAILY IV 12/27/24 10:00 12/27/24 10:00 125 MLS/HR Ipratropium [place] 0.5 mg Q4HR NEB 12/27/24 10:30 12/28/24 14:15 0.5 MG Albuterol 2.5 mg Q4HR NEB 12/27/24 10:30 12/28/24 14:15 2.5 MG Furosemide 20 mg DAILY IV 12/28/24 10:00 12/28/24 13:44 20 MG Melatonin 5 mg HS PRN PO 12/27/24 20:00 Laboratory Results Laboratory Tests 12/28/24 06:54 Chemistry Test 12/28/24 06:54 Calcium Level 9.2 mg/dL (8.7-10.4) Urinalysis Test 12/25/24 18:23 Urine Color Yellow (Yellow) Urine Clarity Clear (Clear) Urine pH 7.5 (5.0-9.0) Urine Specific [place] 1.016 (1.001-1.035) Urine Protein Negative (Negative) Urine Ketones Negative (Negative) Urine Blood Negative /uL (Negative) Urine Nitrite Negative (Negative) Urine Bilirubin Negative (Negative) Urine Urobilinogen Normal mg/dL (Negative) Urine Leukocyte Esterase 1+ /uL (Negative) Urine RBC 1 /hpf (0 - 4) Urine Microscopic WBC 9 /HPF (0-5) H Urine Squamous Epithelial Cells Few /hpf (<5) Urine Bacteria None seen /hpf (None Seen) Urine Glucose 3+ mg/dL (Normal) H Microbiology Microbiology Date/Time Source Procedure Growth Status 12/25/24 14:57 Blood Blood Culture - Preliminary NO GROWTH AFTER 72 HOURS OF INCUBATION. Resulted Assessment/Plan Assessment/Plan 64-year-old female with a known history of coronary artery disease status post four stents, chronic respiratory failure on home O2 trial at 2 L, chronic AFib, hypertension, COPD, asthma, dyslipidemia, diabetes mellitus type 2 who initially presented to the hospital with the increasing shortness a breath found to have 1. Acute on chronic congestive heart failure exacerbation with systolic dysfunction 2. Acute COPD exacerbation 3. Acute on chronic hypoxic respiratory failure secondary to acute CHF exacerbation as well as acute COPD exacerbation 4. Possible community-acquired pneumonia 5. Paroxysmal AFib 6. Known coronary artery disease status post PCI with a four stents 7. Diabetes mellitus type 2 8. Hypertension 9. Anxiety disorder -continue Eliquis, beta martha, O2 supplementation, med nebs -add low dose of Solu-Medrol watch for any evidence of bleeding -physical therapy evaluation and treatment. Plan discussed with: Patient Date of Service: Dec 28, 2024 Billing Provider: CELIA MCNALLY MD Common Visit Codes: [id number] INP/OBS CARE(MOD) CELIA MCNALLY MD Dec 28, 2024 17:07
[2024-12-28] MEDS: LORazepam 2MG/ML-1ML VIAL IV PRN (19:50)
[2024-12-28] MEDS: DOCUSATE SOD 100 MG CAP PO SCH (22:01)
[2024-12-29] VITALS (20 sets, daily range): BP systolic 72–199; BP diastolic 47–85; PULSE 62–93; RESP 16–20; TEMP 96–98.2; O2SAT 95–100
--- NOTE | 2024-12-29 16:28 | DVHPN2 ---
Subjective Patient is currently on 4 L of oxygen. Patient is currently on breathing treatment. Changes from previous H/P or p: No Changes Objective Vitals Vital Signs Date Time Temp Pulse Resp B/P (MAP) Pulse Ox O2 Delivery O2 Flow Rate FiO2 12/29/24 13:43 62 16 99 12/29/24 13:37 Nasal Cannula 3.0 12/29/24 13:37 32 12/29/24 12:54 96.0 148/64 (92) 96.0 Intake/Output Intake and Output 12/29/24 07:00 Intake Total 1730 ml Output Total 1350 ml Balance 380 ml Intake Oral 1480 ml IV Total 250 ml Output Urine Total 1350 ml Exam HEENT pupils are reactive Neck is supple CV is S1-S2 regular rate and rhythm Respiratory diminished breath sounds bilateral lung bases GI positive bowel sound, soft nondistended nontender no guarding no rigidity 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 Medications Current Medications Medications Dose Ordered Sig/Jeanne Route Start Time Stop Time Status Last Admin Dose Admin Amiodarone HCl 200 mg DAILY PO 12/26/24 10:00 12/29/24 09:52 200 MG Atorvastatin Calcium 20 mg HS PO 12/25/24 22:00 12/28/24 22:01 20 MG Clopidogrel Bisulfate 75 mg DAILY PO 12/26/24 10:00 12/29/24 09:52 75 MG Empaglifozin 10 mg DAILY PO 12/26/24 10:00 12/29/24 09:44 10 MG Metoprolol Succinate 25 mg DAILY PO 12/26/24 10:00 12/28/24 13:16 25 MG Sacubitril/ Valsartan 1 tab BID PO 12/25/24 22:00 12/29/24 09:44 1 TAB Apixaban 5 mg BID PO 12/25/24 22:00 12/29/24 09:52 5 MG Diagnostic Test (Pha) 1 strip ACHS 12/25/24 22:00 12/29/24 11:40 1 STRIP Insulin Human Regular ACHS SC 12/25/24 22:00 12/29/24 11:41 4 UNITS Dextrose 50 ml UD PRN IV 12/25/24 19:30 Temazepam 15 mg QHSP PRN PO 12/25/24 22:00 12/28/24 23:39 15 MG Ondansetron HCl 4 mg Q4HP PRN IV 12/25/24 19:30 12/26/24 08:48 4 MG Acetaminophen 650 mg Q6HP PRN PO 12/25/24 19:30 Nitroglycerin 0.4 mg Q5MINP PRN SL 12/25/24 19:30 Morphine Sulfate 2 mg Q30M PRN IV 12/25/24 19:30 Ceftriaxone Sodium 50 ml @ 100 mls/hr DAILY@09 IV 12/27/24 09:00 12/29/24 08:40 100 MLS/HR Azithromycin 250 ml @ 125 mls/hr DAILY IV 12/27/24 10:00 12/29/24 09:44 125 MLS/HR Ipratropium [place] 0.5 mg Q4HR NEB 12/27/24 10:30 12/29/24 13:37 0.5 MG Albuterol 2.5 mg Q4HR NEB 12/27/24 10:30 12/29/24 13:37 2.5 MG Furosemide 20 mg DAILY IV 12/28/24 10:00 12/28/24 13:44 20 MG Melatonin 5 mg HS PRN PO 12/27/24 20:00 Lorazepam 0.5 mg BID PRN IV 12/28/24 19:30 12/29/24 09:54 0.5 MG Docusate Sodium 100 mg BID PO 12/28/24 22:00 12/29/24 09:52 100 MG Laboratory Results Laboratory Tests 12/28/24 06:54 Urinalysis Test 12/25/24 18:23 Urine Color Yellow (Yellow) Urine Clarity Clear (Clear) Urine pH 7.5 (5.0-9.0) Urine Specific [place] 1.016 (1.001-1.035) Urine Protein Negative (Negative) Urine Ketones Negative (Negative) Urine Blood Negative /uL (Negative) Urine Nitrite Negative (Negative) Urine Bilirubin Negative (Negative) Urine Urobilinogen Normal mg/dL (Negative) Urine Leukocyte Esterase 1+ /uL (Negative) Urine RBC 1 /hpf (0 - 4) Urine Microscopic WBC 9 /HPF (0-5) H Urine Squamous Epithelial Cells Few /hpf (<5) Urine Bacteria None seen /hpf (None Seen) Urine Glucose 3+ mg/dL (Normal) H Microbiology Microbiology Date/Time Source Procedure Growth Status 12/25/24 14:57 Blood Blood Culture - Preliminary NO GROWTH AFTER 72 HOURS OF INCUBATION. Resulted Assessment/Plan Assessment/Plan 64-year-old female with a known history of coronary artery disease status post four stents, chronic respiratory failure on home O2 trial at 2 L, chronic AFib, hypertension, COPD, asthma, dyslipidemia, diabetes mellitus type 2 who initially presented to the hospital with the increasing shortness a breath found to have 1. Acute on chronic congestive heart failure exacerbation with systolic dysfunction 2. Acute COPD exacerbation 3. Acute on chronic hypoxic respiratory failure secondary to acute CHF exacerbation as well as acute COPD exacerbation 4. Possible community-acquired pneumonia 5. Paroxysmal AFib 6. Known coronary artery disease status post PCI with a four stents 7. Diabetes mellitus type 2 8. Hypertension 9. Anxiety disorder -continue Eliquis, beta martha, O2 supplementation, med nebs -physical therapy evaluation and treatment. -discharge plan, repeat chest x-ray Plan discussed with: Patient My Orders Orders - CELIA MCNALLY MD Procedure Category Date Status Time Lorazepam 2mg/Ml Inj PHA 12/28/24 In Process (Ativan Inj) 19:30 Docusate Sodium PHA 12/28/24 In Process Capsule (Colace 22:00 Date of Service: Dec 29, 2024 Billing Provider: CELIA MCNALLY MD Common Visit Codes: [id number] INP/OBS CARE(MOD) CELIA MCNALLY MD Dec 29, 2024 16:28
[2024-12-30] VITALS (20 sets, daily range): BP systolic 90–167; BP diastolic 50–81; PULSE 60–76; RESP 16–20; TEMP 97.6–98.5; O2SAT 90–100
[2024-12-30 05:56] LABS: Hematocrit 34.5 % (36.0-46.0); Hemoglobin 11.3 g/dL (12.2-16.2); Mean Corpuscular Hemoglobin 28.3 pg (28.0-32.0); Mean Corpuscular Volume 86.0 fL (80.0-100.0); Nucleated Red Blood Cells % 0.0 %
[2024-12-30 06:26] LABS: Anion Gap 9 (5-15); Carbon Dioxide 28 mmol/L (20-31); Chloride 104 mmol/L (98-107); Potassium 4.0 mmol/L (3.5-5.1); Sodium 141 mmol/L (136-145)
[2024-12-30 06:27] LABS: Calcium 9.1 mg/dL (8.7-10.4)
[2024-12-30 06:33] LABS: BUN/Creatinine Ratio 15.7 (10.0-20.0); Blood Urea Nitrogen 26 mg/dL (9-23); Glucose 132 mg/dL (74-106); Magnesium 2.5 mg/dL (1.6-2.6)
--- NOTE | 2024-12-30 06:50 | DVH ---
CHEST RADIOGRAPH Indication: Congestive heart failure. Technique: Single frontal view of the chest was obtained COMPARISON: XY CHEST PORTABLE on DOS: 12/25/24, XY CHEST TWO VIEWS ROUTINE on DOS: 11/06/24, XY CHEST P ORTABLE on DOS: 09/08/24, XY CHEST PORTABLE on DOS: 09/07/24, XY CHEST PORTABLE on DOS: 07/29/24 FINDINGS: Lines and Tubes: None Lungs: Clear. Mild diffuse increased prominence of the pulmonary vasculature. Pleura: No effusion. No pneumothorax. Cardiomediastinal contours: Cardiomegaly. Atherosclerotic vascular calcification. Bones: Unremarkable IMPRESSION: 1. Cardiomegaly and mild diffuse increased prominence of the pulmonary vasculature.
[2024-12-30] MEDS: FUROSEMIDE 20 MG/2 ML VIAL IV ONE (16:32)
--- NOTE | 2024-12-30 16:42 | DVHPNRES ---
Progress Note Date Seen: Dec 30, 2024 Resident Creating Document: SHERLYN APONTE Medical Necessity Reason Pt with a Central, PICC or Fol: No Subjective Review of Systems The patient is a 64-year-old female with a complex medical history including coronary artery disease (s/p PCI with four stents), congestive heart failure with reduced ejection fraction (EF 2530%), COPD, asthma, chronic respiratory failure on home oxygen, paroxysmal atrial fibrillation, hypertension, diabetes mellitus type 2, hyperlipidemia, anxiety, and depression. She presents with acute worsening of shortness of breath and chest tightness, which began two days ago and has not improved despite nebulizer use. She was recently hospitalized for pneumonia and discharged on 12/23/24. This morning, she experienced increased respiratory distress and called EMS. On arrival, she was hypoxic and placed on 6L oxygen via nasal cannula, improving her saturation to 96%. She reports mild cough and easy bruising but denies chest pain, nausea, vomiting, fever, chills, or urinary symptoms. She is alert, oriented, and cooperative, and verbalizes understanding of her medications and care plan. She reports tolerating oral intake including nutritional supplements. Patient continues to report anxiety and was administered Ativan with good tolerance. Blood pressure remains soft but asymptomatic. IV access was successfully obtained, and respiratory therapy was paged for breathing treatments due to observed pursed-lip breathing. She developed sudden shortness of breath starting at 6:00 am today. Chest X-ray was obtained for evaluation of congestive heart failure. Imaging showed cardiomegaly and mild diffuse increased prominence of the pulmonary vasculature, consistent with CHF. No focal consolidation, effusion, or pneumothorax was noted. He reported being on 2-3L of oxygen via nasal cannula and taking Lasix 20 mg daily. Lasix dose was increased to 20mg BID. Objective vital signs Vital Sign Date Time Temp Pulse Resp B/P (MAP) Pulse Ox O2 Delivery O2 Flow Rate FiO2 12/30/24 16:32 141/81 12/30/24 13:44 64 16 98 12/30/24 13:38 Nasal Cannula 3.0 12/30/24 13:38 32 12/30/24 13:00 97.6 97.6 Total Intake and Output 12/29/24 12/29/24 12/30/24 15:00 23:00 07:00 Intake Total 340 ml 1900 ml 380 ml Output Total 1500 ml 1250 ml Balance 340 ml 400 ml -870 ml medications Current Medications Medications Dose Ordered Sig/Jeanne Route Start Time Stop Time Status Last Admin Dose Admin Amiodarone HCl 200 mg DAILY PO 12/26/24 10:00 12/30/24 09:22 200 MG Atorvastatin Calcium 20 mg HS PO 12/25/24 22:00 12/29/24 21:29 20 MG Clopidogrel Bisulfate 75 mg DAILY PO 12/26/24 10:00 12/30/24 09:21 75 MG Empaglifozin 10 mg DAILY PO 12/26/24 10:00 12/30/24 09:21 10 MG Metoprolol Succinate 25 mg DAILY PO 12/26/24 10:00 12/30/24 09:20 25 MG Sacubitril/ Valsartan 1 tab BID PO 12/25/24 22:00 12/30/24 09:22 1 TAB Apixaban 5 mg BID PO 12/25/24 22:00 12/30/24 09:21 5 MG Diagnostic Test (Pha) 1 strip ACHS 12/25/24 22:00 12/30/24 11:30 1 STRIP Insulin Human Regular ACHS SC 12/25/24 22:00 12/30/24 11:30 4 UNITS Dextrose 50 ml UD PRN IV 12/25/24 19:30 Temazepam 15 mg QHSP PRN PO 12/25/24 22:00 12/29/24 23:42 15 MG Ondansetron HCl 4 mg Q4HP PRN IV 12/25/24 19:30 12/26/24 08:48 4 MG Acetaminophen 650 mg Q6HP PRN PO 12/25/24 19:30 Nitroglycerin 0.4 mg Q5MINP PRN SL 12/25/24 19:30 Morphine Sulfate 2 mg Q30M PRN IV 12/25/24 19:30 Ceftriaxone Sodium 50 ml @ 100 mls/hr DAILY@09 IV 12/27/24 09:00 12/30/24 09:24 100 MLS/HR Azithromycin 250 ml @ 125 mls/hr DAILY IV 12/27/24 10:00 12/30/24 09:24 125 MLS/HR Ipratropium [place] 0.5 mg Q4HR NEB 12/27/24 10:30 12/30/24 13:37 0.5 MG Albuterol 2.5 mg Q4HR NEB 12/27/24 10:30 12/30/24 13:37 2.5 MG Melatonin 5 mg HS PRN PO 12/27/24 20:00 Lorazepam 0.5 mg BID PRN IV 12/28/24 19:30 12/30/24 06:50 0.5 MG Docusate Sodium 100 mg BID PO 12/28/24 22:00 12/30/24 09:19 100 MG Furosemide 20 mg BIDD IV 12/30/24 18:00 Examination General Appearance: Cooperative. Well developed. Well nourished. NAD Head Exam: Normal inspection Neck Exam: Normal inspection. Non-tender. Normal alignment Pulmonary/Respiratory: Chest non-tender. diminished bilateral breath sounds, c rackles, no wheezing. Decreased air entry bilaterally Cardiovascular/Chest: Regular rate and rhythm. No murmurs. No JVD. Peripheral Pulses: 2+ Radial (R). 2+ Radial (L). 2+ Pedal (R). 2+ Pedal (L) Abdominal Exam: Well-healed surgical scar noted superior to the umbilicus from prior hernia repair. Right-sided tenderness. Normal bowel sounds. Soft. normal abdomen, no visible veins, Nontender. No hepatosplenomegaly. No masses Ankle Exam: Negative ankle edema Lower extremities: Mild lower extremity edema Neuro/Mental Status: A&O x4. Coherent. Thoughts/Psych: Normal thought pattern. Appropriate mood and affect. Good judgement and insight Skin Exam: Normal inspection. Normal color. Warm. Dry laboratory and microbiology Laboratory Tests 12/30/24 05:20 Test 12/30/24 05:20 Range/Units Serum Glucose 132 H 74-106 mg/dL Microbiology Date/Time Source Procedure Growth Status 12/25/24 14:57 Blood Blood Culture - Final NO GROWTH AFTER 5 DAYS OF INCUBATION. Complete Labs and/or images reviewed: Labs reviewed by me, Image(s) reviewed by me Problem List/Assessment/Plan Problem List/Assessment/Plan # Acute on chronic systolic heart failure with reduced ejection fraction 25-30% on echocardiogram done in May 2024 # CAD, s/p PTCA x4 JOE # atrial fibrillation; paroxysmal # hypercoagulable state due to above # Essential hypertension -BNP: 812 -Chest X-Ray: Cardiomegaly with CHF -Chest X-Ray: Cardiomegaly and mild diffuse increased prominence of the pulmonary vasculature. -Plavix -IV Lasix 20mg BID -Amiodarone -Eliguis 5 mg -zofran -Tylenol -nitroglycerin - aspirin, Plavix - Entresto -IV diuresis # acute on chronic hypoxic respiratory failure due to pulmonary congestion and suspected COPD/asthma exacerbation secondary to suspected community-acquired pneumonia, Gram-positive versus Gram-negative # asthma/COPD exacerbation -Albuterol Ipratropium bromide q6 jeanne -Blood Culture Preliminary: NO GROWTH AFTER 24 HOURS OF INCUBATION. -Ceftriaxone -Azithromycin -continue oxygen therapy as needed; currently on 3 L/min via nasal cannula; at home a 2 L per minute via nasal cannula # JES likely hemodynamically mediated/VMN possible cardiorenal syndrome? # dyslipidemia -Lipitor -monitor # Type 2 Diabetes mellitus -Jardiance -Insulin Human Regular -Continue mild sliding scale insulin -Dextrose -monitor # Insomnia -Restoril # Anxiety -Ativan DVT prophylaxis: Eliquis 5mg Goals of care discussed with the patient for 20 minutes: Full code Plan discussed with patient Plan discussed with Dr. Gorman Plan discussed with: Patient My Orders My Orders Orders - SHERLYN APONTE Procedure Category Date Status Time Furosemide Injection PHA 12/30/24 In Process (Lasix Injection) 18:00 Dietary Evaluation Review Comments: 1) Reduce CHO to 45g for carbohdrate-controlled cardiac diet. Encourage optimal PO intake 2) Collect HbA1c 3) Refer to outpatient RD/[facility] for weight management 4) Consider referral to physical therapy 5) Follow-up with cardiology, pulmonology, and nephrology 6) Continue to monitor I&O, labs, and skin integrity Expected Outcomes/Goals: 1) appetite and labs to improve 2) gradual wt loss 3) f/u in 3-5 days Date of Service: Dec 30, 2024 Billing Provider: DAVID GORMAN MD Common Visit Codes: [id number] INP/OBS CARE(HIGH) SHERLYN APONTE Dec 30, 2024 16:42 DAVID GORMAN MD Dec 31, 2024 19:42
[2024-12-30] MEDS: FUROSEMIDE 20 MG/2 ML VIAL IV SCH (18:00)
[2024-12-31] VITALS (15 sets, daily range): BP systolic 136–144; BP diastolic 55–72; PULSE 61–76; RESP 16–20; TEMP 98.1–98.6; O2SAT 96–100
[2024-12-31 06:42] LABS: Hematocrit 35.3 % (36.0-46.0); Hemoglobin 11.8 g/dL (12.2-16.2); Mean Corpuscular Hemoglobin 28.8 pg (28.0-32.0); Mean Corpuscular Volume 86.6 fL (80.0-100.0); Nucleated Red Blood Cells % 0.0 %
[2024-12-31 06:45] LABS: Chloride 102 mmol/L (98-107); Potassium 4.2 mmol/L (3.5-5.1); Sodium 139 mmol/L (136-145)
[2024-12-31 06:46] LABS: Anion Gap 10 (5-15); Calcium 9.2 mg/dL (8.7-10.4); Carbon Dioxide 27 mmol/L (20-31)
[2024-12-31 06:51] LABS: BUN/Creatinine Ratio 11.1 (10.0-20.0); Blood Urea Nitrogen 19 mg/dL (9-23)
[2024-12-31 07:05] LABS: Glucose 116 mg/dL (74-106)
[2024-12-31] MEDS ORDERED: FURO40TA4 PO (11:45)
--- NOTE | 2024-12-31 14:52 | DVHDSRES ---
Discharge Summary Date of Admission Resident Creating Document: SHERLYN APONTE RESIDENT Dec 25, 2024 at 19:24 Date of Discharge: Dec 31, 2024 Admitting Diagnosis Shortness of breath Labs/Diagnostic Data: Laboratory Results Test 12/31/24 11:22 12/31/24 04:58 12/30/24 05:20 12/27/24 12:00 POC Glucose 233 mg/dl (70-106) White Blood Count 6.2 10^3/uL (4.4-10.8) Red Blood Count 4.08 10^6/uL (4.0-5.20) Hemoglobin 11.8 g/dL (12.2-16.2) Hematocrit 35.3 % (36.0-46.0) Mean Corpuscular Volume 86.6 fL (80.0-100.0) Mean Corpuscular Hemoglobin 28.8 pg (28.0-32.0) Mean Corpuscular Hemoglobin Concent 33.3 g/dL (32.0-36.0) Red Cell Distribution Width 15.4 % (11.8-14.3) Platelet Count 226 10^3/uL (140-450) Mean Platelet Volume 8.6 fL (6.9-10.8) Neutrophils (%) (Auto) 70.1 % (37.0-80.0) Lymphocytes (%) (Auto) 19.0 % (10.0-50.0) Monocytes (%) (Auto) 6.6 % (0.0-12.0) Eosinophils (%) (Auto) 3.4 % (0.0-7.0) Basophils (%) (Auto) 0.9 % (0.0-2.0) Neutrophils # (Auto) 4.3 10 ^3/uL (1.6-8.6) Lymphocytes # (Auto) 1.2 10 ^3/uL (0.4-5.4) Monocytes # (Auto) 0.4 10 ^3/uL (0-1.3) Eosinophils # (Auto) 0.2 10 ^3/uL (0-0.8) Basophils # (Auto) 0.1 10 ^3/uL (0-0.2) Nucleated Red Blood Cells 0.0 % Sodium Level 139 mmol/L (136-145) Potassium Level 4.2 mmol/L (3.5-5.1) Chloride Level 102 mmol/L (98-107) Carbon Dioxide Level 27 mmol/L (20-31) Anion Gap 10 (5-15) Blood Urea Nitrogen 19 mg/dL (9-23) Creatinine 1.71 mg/dL (0.550-1.02) Glomerular Filtration Rate Calc 33 mL/min (>90) BUN/Creatinine Ratio 11.1 (10.0-20.0) Serum Glucose 116 mg/dL (74-106) Calcium Level 9.2 mg/dL (8.7-10.4) Magnesium Level 2.5 mg/dL (1.6-2.6) Influenza Type A Antigen Negative (Negative) Influenza Type B Antigen Negative (Negative) SARS-CoV-2 Antigen (Rapid) Negative (NEGATIVE) Test 12/25/24 18:23 12/25/24 18:10 12/25/24 14:57 Urine Color Yellow (Yellow) Urine Clarity Clear (Clear) Urine pH 7.5 (5.0-9.0) Urine Specific [place] 1.016 (1.001-1.035) Urine Protein Negative (Negative) Urine Ketones Negative (Negative) Urine Blood Negative /uL (Negative) Urine Nitrite Negative (Negative) Urine Bilirubin Negative (Negative) Urine Urobilinogen Normal mg/dL (Negative) Urine Leukocyte Esterase 1+ /uL (Negative) Urine RBC 1 /hpf (0 - 4) Urine Microscopic WBC 9 /HPF (0-5) Urine Squamous Epithelial Cells Few /hpf (<5) Urine Bacteria None seen /hpf (None Seen) Urine Glucose 3+ mg/dL (Normal) Lactic Acid Level 0.9 mmol/L (0.4-2.0) Troponin I High Sensitivity 20 ng/L (</=34) B-Type Natriuretic Peptide 812.23 pg/mL (0-100) Other Laboratory Tests 12/31/24 04:58 Brief Hx & Hospital Course: The patient is a 64-year-old female with a complex medical history including coronary artery disease (s/p PCI with four stents), congestive heart failure with reduced ejection fraction (EF 2530%), COPD, asthma, chronic respiratory failure on home oxygen, paroxysmal atrial fibrillation, hypertension, type 2 diabetes mellitus, hyperlipidemia, anxiety, and depression. She presented with acute worsening of shortness of breath and chest tightness, unrelieved by home nebulizer treatments. She had a recent hospitalization for pneumonia and was discharged on 12/23/24. On the morning of admission, she experienced increased respiratory distress and called EMS. She was found to be hypoxic and placed on 6L oxygen via nasal cannula, improving her saturation to 96%. Chest X-ray revealed cardiomegaly and mild pulmonary vascular congestion consistent with CHF. She was started on IV Lasix 20 mg BID for diuresis and continued on home cardiac medications including Entresto, Plavix, aspirin, and amiodarone. She was also treated for suspected COPD/asthma exacerbation and possible community-acquired pneumonia with ceftriaxone and azithromycin. Blood cultures showed no growth after 24 hours. Oxygen therapy was continued at 3L/min via nasal cannula. Wound care was initiated per MD orders, and preliminary wound culture showed rare Gram-negative rods and moderate Gram-positive rods resembling diphtheroids. Throughout hospitalization, the patient remained alert, oriented, and cooperative. She tolerated oral intake and medications well. Anxiety was managed with Ativan. Guan catheter remained intact and draining clear urine. No signs of acute distress were noted during nursing rounds. Safety precautions were maintained, and the patient was able to transfer with assistance. On evaluation today, she states she is well, pain is manageable. Her vitals have remained stable for discharge home, follow up visit in discharge clinic. All medications and recommendations were thoroughly explained and the patient states he understands and agrees. Detailed discussion held with patient at bedside were all questions were answered and concerns were addressed. Examination General Appearance: Cooperative. Well developed. Well nourished. NAD Head Exam: Normal inspection Neck Exam: Normal inspection. Non-tender. Normal alignment Pulmonary/Respiratory: Chest non-tender. diminished bilateral breath sounds, c rackles improved, no wheezing. Decreased air entry bilaterally Cardiovascular/Chest: Regular rate and rhythm. No murmurs. No JVD. Peripheral Pulses: 2+ Radial (R). 2+ Radial (L). 2+ Pedal (R). 2+ Pedal (L) Abdominal Exam: Well-healed surgical scar noted superior to the umbilicus from prior hernia repair. Right-sided tenderness. Normal bowel sounds. Soft. normal abdomen, no visible veins, Nontender. No hepatosplenomegaly. No masses Ankle Exam: Negative ankle edema Lower extremities: Mild lower extremity edema Neuro/Mental Status: A&O x4. Coherent. Thoughts/Psych: Normal thought pattern. Appropriate mood and affect. Good judgement and insight Skin Exam: Normal inspection. Normal color. Warm. Dry Operations or Procedures PROCEDURE(s): CXR1 - CHEST XRAY 1 VIEW REASON: Congestive heart failure. ORDER NUMBER(s): [id number], ACCESSION NUMBER(s): [id number] CHEST RADIOGRAPH Indication: Congestive heart failure. Technique: Single frontal view of the chest was obtained COMPARISON: XY CHEST PORTABLE on DOS: 12/25/24, XY CHEST TWO VIEWS ROUTINE on DOS: 11/06/24, XY CHEST PORTABLE on DOS: 09/08/24, XY CHEST PORTABLE on DOS: 09/07/24, XY CHEST PORTABLE on DOS: 07/29/24 FINDINGS: Lines and Tubes: None Lungs: Clear. Mild diffuse increased prominence of the pulmonary vasculature. Pleura: No effusion. No pneumothorax. Cardiomediastinal contours: Cardiomegaly. Atherosclerotic vascular calcification. Bones: Unremarkable IMPRESSION: 1. Cardiomegaly and mild diffuse increased prominence of the pulmonary vasculature. - PROCEDURE(s): CXRP - CHEST PORTABLE REASON: SOB ORDER NUMBER(s): [id number], ACCESSION NUMBER(s): [id number] INDICATION: SOB TECHNIQUE: Frontal view of the chest. COMPARISON: XY CHEST TWO VIEWS ROUTINE on DOS: 11/06/24, XY CHEST PORTABLE on DOS: 09/08/24, XY CHEST PORTABLE on DOS: 09/07/24, XY CHEST PORTABLE on DOS: 07/29/24, XY CHEST PORTABLE on DOS: 07/28/24 FINDINGS: . Cardiomegaly. There is no evidence of pleural disease. The lungs are clear. The bony structures of the chest are intact without fracture. IMPRESSION: 1. Cardiomegaly with CHF DATE: 12/30/24 PAGE 1 RUN TIME: 1509 [facility] [id number] [address] [place] [id number] Lexii Carreon M.D., Laboratory [employer] - PATIENT: KESHIA CASTILLO ACCT: [id number] LOC: [facility] U: [id number] AGE/SX: 64/F ROOM: 027 RE12/25/[address]: SHERLYN APONTE RESIDENT : 1960 BED: A DIS: STATUS: ADM IN TLOC: - SPEC #: [id number] MORA: 12/25/24 STATUS: COMP REQ #: [id number] RECD: 12/25/24-[address]: DOMINGO OROZCO MD SOURCE: BLOOD ENTR: 12/25/24-1442 [facility] DR: NAEL: ORDERED: BCULT - Procedure Result - Blood Culture Final NO GROWTH AFTER 5 DAYS OF INCUBATION. NO GROWTH AFTER 5 DAYS OF INCUBATION. Condition at Discharge: Stable Final Diagnosis/Problems List # Acute on chronic systolic heart failure with reduced ejection fraction 25-30% on echocardiogram done in May 2024 # CAD, s/p PTCA x4 JOE # atrial fibrillation; paroxysmal # hypercoagulable state due to above # Essential hypertension # acute on chronic hypoxic respiratory failure due to pulmonary congestion and suspected COPD/asthma exacerbation secondary to suspected community-acquired pneumonia, Gram-positive versus Gram-negative # asthma/COPD exacerbation # JES likely hemodynamically mediated/VMN possible cardiorenal syndrome? # dyslipidemia # Type 2 Diabetes mellitus # Insomnia # Anxiety Discharge Disposition: Home Discharge Instruct/Medications Diet: Cardiac 2g Na,low cholest Activity: No Restrictions, As Tolerated Follow Up/Referral: Follow up with DC clinic within 1 week. Medications: Furosemide 40 Mg PO Daily 30 Days continue home medications as per EMR Scheduled Albuterol Sulfate (Albuterol Sulfate Hfa), 1-2 PUFF IN Q6HR PRN, (Reported) Alprazolam (Xanax), 1 TAB PO BID Amiodarone HCl (Amiodarone HCl), 1 TAB PO DAILY, (Reported) Amiodarone HCl (Amiodarone HCl), 200 MG PO DAILY Apixaban Base (Eliquis), 5 MG PO BID Atorvastatin Calcium (Lipitor), 2 TAB PO DAILY, (Reported) Atorvastatin Calcium (Atorvastatin Calcium), 20 MG PO HS Clopidogrel Bisulfate (Clopidogrel), 1 TAB PO DAILY, (Reported) Clopidogrel Bisulfate (Clopidogrel), 75 MG PO DAILY Cyanocobalamin (B-12), 1,000 MCG PO QAM Empagliflozin (Jardiance), 10 MG PO DAILY Empagliflozin (Jardiance), 10 MG PO DAILY Fluticasone Furoate-Vilanterol (Breo Ellipta 200-25 Mcg/INH), 1 INH IN DAILY, (Reported) Furosemide (Furosemide), 1 TAB PO DAILY Gabapentin (Gabapentin), 800 MG PO BID, (Reported) Glipizide (Glipizide), 5 MG PO DAILY, (Reported) Ipratropium-Albuterol (Combivent Respimat), 1 AER IN UD, (Reported) Metformin Hydrochloride (Metformin Hcl Er), 1 TAB PO BID, (Reported) Metoprolol Succinate (Toprol Xl), 25 MG PO DAILY Metoprolol Tartrate (Lopressor), 25 MG PO DAILY, (Reported) Montelukast Sodium (Montelukast Sodium), 1 TAB PO DAILY, (Reported) Pantoprazole Sodium Sesquihydr (Protonix), 40 MG PO DAILY, (Reported) Sacubitril-Valsartan (Entresto 24-26 mg), 1 TAB PO BID Sacubitril-Valsartan (Entresto 24-26 mg), 1 TAB PO BID Scheduled PRN Apixaban Base (Eliquis), 5 MG PO BID PRN Famotidine (Famotidine), 1 TAB PO DAILY PRN for GERD, (Reported) Melatonin (Melatonin), 5 MG PO HS PRN Discontinued Medications Furosemide (Furosemide), 1 TAB PO DAILY, (Reported) Levofloxacin Hemihydrate (Levaquin 500 Mg), 500 MG PO DAILY Discharge Statement: "Patient was advised to return to the ER or call 911 if any headaches, dizziness, shortness of breath, chest pain, abdominal pain, bleeding, fevers, or worsening of medical condition. Patient was counseled about treatment plan, medications, possible side effects, patientverbalized understanding. All questions were answered to the best of my ability. This discharge took greater then 30 minutes in planning, reviewing documentation, counseling the patient, and discussing with other team members." ASSESSMENT ASSESSMENT Assessment acute on chronic heart failure Date of Service: Dec 31, 2024 Billing Provider: DAVID URIBE MD Common Visit Codes: 91914-VZA/OBS DISCH DAY >30min SHERLYN APONTE RESIDENT Dec 31, 2024 14:52 DAVID URIBE MD Dec 31, 2024 19:43
[2024-12-31] MEDS ORDERED: ALPR0.25 PO (15:40)
[2024-12-31] MEDS ORDERED: EMPA1TAB PO (15:43)
[2024-12-31] MEDS ORDERED: AMIO200T13 PO (15:43)
[2024-12-31] MEDS ORDERED: ATOR20TA50 PO (15:43)
[2024-12-31] MEDS ORDERED: CLOP75TA70 PO (15:43)
[2024-12-31] MEDS ORDERED: METO-6 PO (15:43)
[2024-12-31] MEDS ORDERED: APIX5TAB PO (15:43)
[2024-12-31] MEDS ORDERED: SACU1TAB PO (15:43)
--- NOTE | 2025-01-02 14:00 | ECG ---
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
== END 2024-12-31 17:11 | disposition home or self-care (01) | DRG 177 ==
LOC: ER 14:14 → EDBD 14:14 → OVERFLOW 19:24 → TELE-WESTW 12-26 14:41
PROVIDERS: ADMIT Internal Medicine Geriatric Medicine; ATTEND Internal Medicine Geriatric Medicine
DX: J15.69 Pneumonia due to other Gram-negative bacteria (principal); I50.23 Acute on chronic systolic (congestive) heart failure; N17.0 Acute kidney failure with tubular necrosis; J96.21 Acute and chronic respiratory failure with hypoxia; J44.1 Chronic obstructive pulmonary disease with (acute) exacerbation; D68.69 Other thrombophilia; J45.901 Unspecified asthma with (acute) exacerbation; I13.0 Hypertensive heart and chronic kidney disease with heart failure and stage 1 through stage 4 chronic kidney disease, or unspecified chronic kidney disease; E78.5 Hyperlipidemia, unspecified; I25.10 Atherosclerotic heart disease of native coronary artery without angina pectoris; I48.0 Paroxysmal atrial fibrillation; F41.9 Anxiety disorder, unspecified; G47.00 Insomnia, unspecified; J15.9 Unspecified bacterial pneumonia; N18.9 Chronic kidney disease, unspecified; E11.22 Type 2 diabetes mellitus with diabetic chronic kidney disease; Z99.81 Dependence on supplemental oxygen; Z95.5 Presence of coronary angioplasty implant and graft; Z98.51 Tubal ligation status; I25.2 Old myocardial infarction; Z79.01 Long term (current) use of anticoagulants; Z79.899 Other long term (current) drug therapy
CPT/HCPCS: 36415; 71045; 80048; 81001; 82962; 83605; 83735; 83880; 84484; 85025; 87040; 87426; 87804; 94640; 96372; 96374; 97110; 97116; 97163; 97530; 99291; 99292; G0378; J1815; J2405